=== PATIENT | female | born 1950 | race Caucasian/White ===

== ENCOUNTER 2023-08-16 22:18 | Inpatient (IN) | payer MEDICARE, OTHER, SELFPAY ==
[2023-08-16 18:16] VITALS: BP 98/70
[2023-08-16 19:21] VITALS: BP 103/72
[2023-08-16 19:40] LABS: Lactic Acid 1.9 mmol/L (0.7-2.0)
[2023-08-16 19:41] LABS: ALT (SGPT) 27 U/L (0-35); AST (SGOT) 28 U/L (14-36); Albumin 3.6 g/dl (3.5-5.0); Alkaline Phosphatase 43 U/L (38-126); Blood Urea Nitrogen 59 mg/dl (7-17); Calcium 10.5 mg/dl (8.4-10.2); Carbon Dioxide 37 mmol/L (22-30); Chloride 84 mmol/L (98-107); Creatine Phosphokinase 21 U/L (30-135); Glucose 187 mg/dl (70-99); Lipase 318 U/L (23-300); Potassium 4.1 mmol/L (3.5-5.1); Sodium 122 mmol/L (135-145); Total Bilirubin 0.8 mg/dl (0.2-1.3); Total Protein 5.6 g/dl (6.3-8.2); eGFR > 60.00
[2023-08-16 20:00] VITALS: BP 105/74
[2023-08-16 20:05] LABS: % Basophils 0.2 % (0-2); % Monocytes 3.7 % (1.7-9.3); % Neutrophils 70.1 % (42.2-75.2); Absolute Immature Granulocytes 0.1 10^3/uL (0-0.05); Absolute Lymphocytes 2.9 10^3/uL (1.2-3.4); Absolute Monocytes 0.4 10^3/uL (0.1-0.6); Absolute Neutrophils 8.2 10^3/uL (1.4-6.5); Hematocrit 35.4 % (37.0-47.0); Hemoglobin 13.1 g/dL (12.0-16.0); Mean Corpuscular Volume 86.6 fL (81.0-99.0); Nucleated Red Blood Cells % 0 %; Platelet Count 306 10^3/uL (130-400); Red Blood Cell Count 4.09 10^6/uL (4.20-5.40); Red Cell Dist. Width 13.1 % (11.5-14.5); White Blood Cell Count 11.8 10^3/uL (4.8-10.8)
[2023-08-16 20:12] LABS: TSH Reflex To Free T4 < 0.02 uIU/ml (0.47-4.68)
[2023-08-16 20:16] LABS: Urine Albumin Negative (Neg - Trace); Urine Bilirubin 1+ (Negative); Urine Character Clear (Clear); Urine Color Yellow; Urine Glucose Negative (Negative); Urine Ketone Negative (Negative); Urine Leukocyte Trace (Negative); Urine Nitrite Positive (Negative); Urine Occult Blood 1+ (Negative); Urine Urobilinogen Negative (Neg - 1+)
--- NOTE | 2023-08-16 20:32 | ED.GENMED ---
History of Present Illness
General
Chief Complaint: Abnormal Lab Value
Source: patient and family
Exam Limitations: none
Time Seen by Provider: 08/16/23 18:40
Nursing documentation reviewed up to this point in time: agreed with
Travel History
Have you had any contact with someone who has COVID-19?: No
Do you have any symptoms of coronavirus? Fever > 100 degrees, chills, cough, shortness of breath, sore throat, loss of taste or smell, muscle aches, or headache?: No
History of Present Illness
History of Present Illness:
72-year-old female with past medical history of asthma COPD recent strep pneumonia currently still on antibiotic, A-fib, anemia, urinary tension presenting to the emergency department today with concerns of abnormal labs as an outpatient as well as
worsening generalized weakness fatigue over the past week or so. Of note additionally she was recently in the hospital 1 month ago with pneumonia's currently still on antibiotics managed by infectious disease and pulmonary. Still on doxycycline.
Currently on 4 L nasal cannula at baseline. Outpatient labs that indicate hyponatremia and elevated BUN which prompted her to come to the emergency department. She additionally has had generalized weakness and fatigue that has been progressive.
She has not been drinking adequately by self admission, she has been taking Lasix daily.
Past History
Past History
ED Past Medical History: Arrthythmia (afib), COPD, Hypothyroidism and Other (Monoclonal B-cell lymphocytosis)
ED Past Surgical History: Cardiac (Cardiac ablation for A-fib), Gynecological (Hysterectomy), Orthopedic (Microdiscectomy, right hip replacement) and Other (Cataract)
Social History
Tobacco: Former smoker
Alcohol: None
Drug: None
Personal:
Living: alone
Employment: Retired
Review of Systems
Review of Systems
Allergies reviewed?: Yes
All Other Systems: ROS reviewed and negative except as documented in HPI and ROS
Phy Exam
Physical Exam
Physical Exam:
GENERAL: Alert , in no apparent distress
EYE: pupils equal and reactive
NECK: Supple, no significant adenopathy.
ENT: o/p clr, mmm.
CARDIAC: Regular rate and rhythm .
LUNGS: Clear breath sounds bilaterally, no acute respiratory distress, no wheezes/rales/rhonchi
ABDOMEN: Soft, without focal tenderness, no r/g, no cvat
NEUROLOGICAL: Alert and oriented, no focal neuro deficits
SKIN: Warm and dry, skin intact.
MUSCULOSKELETAL: No edema, well perfused.
PSYCH: Normal and appropriate interaction.
Course
Orders/Labs/Results
Orders:
Orders
08/16/23 18:41
EKG [Electrocardiogram (*1)] Urgent
Reason for Study: Fatigue / Weakness
08/16/23 18:42
EKG- Treatment ONCE
08/16/23 19:17
Complete Blood Count/With Diff Urgent
Comprehensive Metabolic Panel Urgent
Creatine Phosphokinase Urgent
Free T4 Urgent
Lactic Acid Urgent
Lipase Urgent
Magnesium Urgent
Comment: ADD ON
TSH Reflex To Free T4 Urgent
08/16/23 20:05
Urinalysis Reflex To Culture Urgent
Date Specimen was Collected: 08/16/23
Time Specimen was Collected: 19:06
Urine Microscopic Reflex Cult Urgent
Urine Culture Urgent
ALYSSIA Source: U
Specimen Description:
Date Specimen was Collected: 08/16/23
Time Specimen was Collected: 19:06
08/16/23 20:16
0.9% Sodium Chloride 500 ml [Nss] 500 ml IV BOLUS
08/16/23 20:35
Add On- LAB Urgent
Tests Added?: magnesium
08/16/23 20:38
Mag&Al/Sim/Diphenhyd/Lidocaine [First-Mouthwash Blm Suspension] 5 ml PO ONCE ONE
08/16/23 20:45
Ondansetron Injectable [Zofran] 4 mg IV NOW STA
Abnormal Lab Results
08/16/23 08/16/23
19:17 20:05
WBC 11.8 H 10^3/uL
(4.8-10.8)
RBC 4.09 L 10^6/uL
(4.20-5.40)
Hct 35.4 L %
(37.0-47.0)
MCH 32.0 H pg
(27.0-31.0)
Abs Immat Gran (auto) 0.1 H 10^3/uL
(0-0.05)
Absolute Neuts (auto) 8.2 H 10^3/uL
(1.4-6.5)
Immature Gran % 1.0 H %
(0-0.5)
Sodium 122 L mmol/L
(135-145)
Chloride 84 L mmol/L
(98-107)
Carbon Dioxide 37 H mmol/L
(22-30)
BUN 59 H mg/dl
(7-17)
Glucose 187 H mg/dl
(70-99)
Calcium 10.5 H mg/dl
(8.4-10.2)
Magnesium 2.5 H mg/dl
(1.6-2.3)
Creatine Kinase 21 L U/L
(30-135)
Total Protein 5.6 L g/dl
(6.3-8.2)
Lipase 318 H U/L
(23-300)
TSH (Reflex) < 0.02 L uIU/ml
(0.47-4.68)
Ur Occult Blood Reflex 1+ A
(Negative)
Urine Nitrite (Reflex) Positive A
(Negative)
Urine Bilirubin 1+ A
(Negative)
Leukocyte Esterase Rfl Trace A
(Negative)
Urine RBC 40-50 A /HPF
(0-2)
Urine Bacteria (Reflex) Few A
(Negative)
08/16/23 19:17
08/16/23 19:17
Vital Signs
Initial and Last Documented VS:
Initial Vital Signs
Temp Pulse Resp BP Pulse Ox
98.0 F 87 16 98/70 96
08/16/23 18:16 08/16/23 18:16 08/16/23 18:16 08/16/23 18:16 08/16/23 18:16
Last Documented Vital Signs
Temp Pulse Resp BP Pulse Ox
98.0 F 81 18 117/80 95
08/16/23 18:16 08/16/23 21:00 08/16/23 21:00 08/16/23 21:00 08/16/23 21:00
MDM/Problems Addressed
MDM/Problems Addressed:
72-year-old female presenting to the emergency department today with concerns of generalized weakness fatigue worsening over the past few weeks additionally with abnormal labs including hyponatremia and elevated BUN a few days ago. Upon arrival
here blood pressure slightly low otherwise vital signs are normal. Labs were obtained showing sodium level 122 chloride level of 84. BUN elevated to 59 creatinine 0.8 indicating potential dehydration was given some fluids and admitted for further
treatment.
*Critical Care Note
Total Time (30-74mins, 75-104mins- exclusive of procedures): Not Applicable
ED Attending Note
-
Portions of this chart may have been created with voice recognition software.� Occasional wrong word or��sound alike� substitutions may have occurred due to the inherent limitations of voice recognition software.
Discharge Plan
Departure
Patient Disposition: Admit
Date of Disposition: 08/16/23
Time of Disposition: 21:19
Admit to: Med/Surg
Admit to doctor: Luis Alfredo
Presentation/result/management discussed w/ accepting MD/DO: Hospitalist
Patient with high blood pressure during this ER visit?: No
Condition: Good
Covid-19: Not Applicable
Discharge Problem:
Acute hyponatremia, Hypochloremia, Elevated BUN
Prescriptions:
No Action
celecoxib 200 mg capsule
200 mg PO BID
gabapentin 600 mg tablet
600 mg PO TID@0700,1500,2200
gabapentin 300 mg capsule
300 mg PO HS
Rx Instructions:
07/03/2023, taken w/ 600mg = 900mg @2200.
montelukast 10 mg tablet
10 mg PO HS
fluticasone propionate 50 mcg/actuation spray,suspension
2 spray INTRANASAL BID
levothyroxine 112 mcg tablet
112 mcg PO MOWEFR@07
furosemide 40 mg tablet
20 mg PO DAILY PRN (Reason: mild edema)
Patient Comments:
07/03/2023, patient states that the dose they take depends on how much salt they eat and how much swelling there is in her legs.
fexofenadine 180 mg Tablet
180 mg PO DAILY
levothyroxine 125 mcg tablet
125 mcg PO SUTUTHSA@07
azelastine 137 mcg (0.1 %) aerosol,spray
1 spray INTRANASAL DAILY
krill oil
1 cap PO DAILY
doxycycline hyclate 100 mg capsule
100 mg PO BID Qty: 60 0RF
Hold Instructions: can go back to this regimen when done with levaquin
Patient Comments:
07/03/2023, patient states that she takes this medication BID for 6 weeks and then swtiches to their Cefuroxime BID for 6 weeks and then they go back to their Doxycylcine for 6 weeks and repeat. Patient states that she starts taking this
medication BID on Friday (07/07/2023). Patient is currently taking her Cefuroxime for 6 weeks.
furosemide 40 mg Tablet
40 mg PO DAILY PRN (Reason: severe edema)
Patient Comments:
07/03/2023, patient states that the dose they take depends on how much salt they eat and how much swelling there is in her legs.
cyanocobalamin (vitamin B-12) 1,000 mcg Tablet
500 mcg PO DAILY
ascorbic acid (vitamin C) [Vitamin C] 500 mg Tablet
500 mg PO QPM
Serevent Diskus 50 mcg/dose Blister With Device
1 inh INHALATION R BID
cefuroxime axetil 500 mg Tablet
500 mg PO BID
Hold Instructions: can go back to this regimen when done with levaquin
Patient Comments:
07/03/2023, patient states that she takes this medication BID for 6 weeks and then swtiches to their Doxycycline BID for 6 weeks and then they go back to their Cefuroxime for 6 weeks and repeat. Patient is currently taking this medication for 6
weeks. Patient states that she starts her Doxycylcine on Friday (07/07/2023).
duloxetine 30 mg Capsule,Delayed Release(Dr/Ec)
30 mg PO BID
levalbuterol tartrate 45 mcg/actuation Hfa Aerosol Inhaler
1 puff INHALATION R Q8HPRN PRN (Reason: sob)
cholecalciferol (vitamin D3) 25 mcg (1,000 unit) Tablet
25 mcg PO .4 TIMES A WEEK@1700
Patient Comments:
07/03/2023, patient states that they take this medication 4 times a week whenever they think to add it to their pill box.
roflumilast [Daliresp] 500 mcg Tablet
500 mcg PO HS
fluticasone furoate 200 mcg/actuation Blister With Device
2 inh INHALATION R BID
turmeric 400 mg Capsule
400 mg PO BID
Citracal plus D
1 tab PO BID
diltiazem HCl 180 mg Capsule,Extended Release 24hr
180 mg PO DAILY Qty: 0 0RF
prednisone 20 mg Tablet
60 mg PO DAILY Qty: 1 0RF
Rx Instructions:
Decrease by 10 mg every 3 days until done
levofloxacin 750 mg Tablet
750 mg PO DAILY Qty: 4 0RF
benzonatate 100 mg Capsule
200 mg PO TID Qty: 0 0RF
levalbuterol HCl 1.25 mg/3 mL Solution For Nebulization
1.25 mg inhalation R Q6HPRN PRN (Reason: sob/wheeze) Qty: 0 0RF
alprazolam 0.5 mg Tablet
0.5 mg PO HS Qty: 3 0RF
Referrals:
Juan Kamara MD [Family Provider] -
Interventions
Interventions:
*ED COVID-19 Vaccine History Last Done: 08/16/23 18:16
[2023-08-16 20:41] LABS: Free T4 1.56 ng/dl (0.78-2.19)
[2023-08-16 20:44] LABS: Urine Bacteria Few (Negative); Urine Red Blood Cell 40-50 /HPF (0-2); Urine Squamous Cell 0-2 /LPF (Few)
[2023-08-16] MEDS: NSS 500 IV (20:44)
[2023-08-16] MEDS: ZOFRAN 4 MG IV (20:48)
[2023-08-16 21:00] VITALS: BP 117/80
[2023-08-16 21:08] LABS: Magnesium 2.5 mg/dl (1.6-2.3)
--- NOTE | 2023-08-16 21:45 | HPS.HSE ---
Addendum entered and electronically signed by Nic Lobato DO 08/16/23 22:30:
Patient seen and examined independently. Agree with findings and plan as set forth by Shalini Simons PA-C.
Patient is a 72y F with PMH significant for PAF, COPD, hypothyroidism and recent issues with edema who presents to ED for evaluation of abnormal outpatient lab testing. Patient was admitted here Jun for pneumonia. She was discharged
to rehab and then admitted to [facility] with COVID. Patient states that she then began to develop increased edema / fluid retention in the legs. thighs and abdomen. She was started on a diuretic regimen consisting of BID Lasix and daily metolazone.
Labs done as an outpatient showed new hyponatremia and patient presented to the ED for evaluation.
Patient complains of feeling weak, fatigued and 'washed out'. She complains of nausea and poor appetite.
Ass:
Symptomatic Hyponatremia - Likely Hypovolemic
Hypovolemia secondary to diuretics
COPD
Chronic Hypoxemic Respiratory Failure
Paroxysmal Atrial Fibrillation
Anxiety / Depression
Hypothyroidism
Peripheral Neuropathy
Monoclonal B Cell Lymphocytosis
Plan:
Admit for further evaluation and treatment.
Hold all diuretics - note that regimen prior to initial hospitalization was Lasix only 'PRN' for swelling.
Gentle IVF replacement overnight.
Follow labs / lytes and adjust fluids as needed.
Follow I/Os, daily weights, etc.
PT / OT evaluations.
Continue usual outpatient medications for COPD, A-Fib, etc.
Update TFTs.
Original Note:
Family Physician
-
Family Physician: Juan Kamara
Chief Complaint
-
Abnormal Lab Values
History of Present Illness
Pt is a 72yo F w/ a PMH of Paroxysmal AFib, COPD, Asthma, Hypothyroidism, and Monoclonal B-cell lymphocytosis is presenting to the ED following abnormal lab values during routine lab work. Pt states she was hospitalized at for a week with strep
pneumonia and discharged on 07/14/23. She then went to [facility] for one week and was admitted to [facility] with Covid for one week. After discharge she returned to [facility] rehab for two weeks and has since been home for one week.
She admits to still feeling short of breath and experiences intermittent coughing without sputum production. She states her appetite is normal and she is able to keep down food and fluids. She states she was experiencing significant lower extremity
edema for which she was started on Lasix 40mg twice daily with the addition of Metolazone 2.5mg daily by a provider outside of . Her recent blood work showed significant hyponatremia and she was referred to ED for evaluation. Daughter at the
bedside notes slight confusion, and patient reports feeling very foggy.
Medical History
Past Medical History
Past Medical History: Reports Other
Additional Past Medical History:
Paroxysmal Atrial Fibrillation s/p Ablation
COPD
Chronic Hypoxic Respiratory Failure
Monoclonal B-Cell Lymphocytosis
Hypothyroidism
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
Past Surgical History: Reports Other
Additional Past Surgical History:
Cardiac Ablation
Hysterectomy
Microdiscectomy
Right Hip Replacement
Cataract
Social History
Tobacco: Former Smoker
Alcohol: Occasional
Drug: None
Family History
Family History: Not pertinent
Allergies / Home Medications
Allergies reflects when Allergies were last updated in [employer].
Home Medications with original date entered in [employer]
Allergy/Medication List:
Allergies
Allergy/AdvReac Type Severity Reaction Status Date / Time
azithromycin Allergy Rash Verified 11/20/22 14:52
codeine Allergy Rash Verified 11/20/22 14:52
morphine Allergy Rash Verified 11/20/22 14:52
tetanus toxoid, adsorbed Allergy Rash Verified 11/20/22 14:52
tuberculin, purified protein Allergy Rash Verified 11/20/22 18:54
deriva
Home Medications
azelastine 137 mcg (0.1 %) nasal spray aerosol 1 spray intranasal DAILY Allergies 11/20/22
celecoxib 200 mg capsule 200 mg PO BID Pain 11/20/22
fexofenadine 180 mg tablet 180 mg PO DAILY Allergies 11/20/22
fluticasone propionate 50 mcg/actuation nasal spray,suspension 2 spray intranasal BID Allergies 11/20/22
gabapentin 300 mg capsule 300 mg PO HS Pain 11/20/22
gabapentin 600 mg tablet 600 mg PO TID@0700,1500,2200 Pain 11/20/22
krill oil 1 cap PO DAILY Supplement 11/20/22
levothyroxine 112 mcg tablet 112 mcg PO MOWEFR@07 Thyroid 11/20/22
levothyroxine 125 mcg tablet 125 mcg PO SUTUTHSA@07 Thyroid 11/20/22
montelukast 10 mg tablet 10 mg PO HS Lung/breathing issues 11/20/22
doxycycline hyclate 100 mg capsule 100 mg PO BID #60 caps 11/25/22
Citracal plus D 1 tab PO BID Supplement 07/03/23
ascorbic acid (vitamin C) 500 mg tablet (Vitamin C) 500 mg PO QPM Supplement 07/03/23
cefuroxime axetil 500 mg tablet 500 mg PO BID Infection 07/03/23
cholecalciferol (vitamin D3) 25 mcg (1,000 unit) tablet 25 mcg PO .4 TIMES A WEEK@1700 Supplement 07/03/23
cyanocobalamin (vitamin B-12) 1,000 mcg tablet 500 mcg PO DAILY Supplement 07/03/23
duloxetine 30 mg capsule,delayed release 30 mg PO BID Depression 07/03/23
fluticasone furoate 200 mcg/actuation blister powder for inhalation 2 inh inhalation R BID Lung/Breathing Issues 07/03/23
levalbuterol tartrate 45 mcg/actuation aerosol inhaler 1 puff inhalation R Q8HPRN PRN sob 07/03/23
roflumilast 500 mcg tablet (Daliresp) 500 mcg PO HS Lung/Breathing Issues 07/03/23
salmeterol 50 mcg/dose blister powder for inhalation (Serevent Diskus) 1 inh inhalation R BID Lung/Breathing Issues 07/03/23
turmeric 400 mg capsule 400 mg PO BID Supplement 07/03/23
alprazolam 0.5 mg tablet 0.5 mg PO HS #3 tabs 07/12/23
benzonatate 100 mg capsule 200 mg PO TID #0 caps 07/12/23
levalbuterol HCl 1.25 mg/3 mL solution for nebulization 1.25 mg (3 mL) inhalation R Q6HPRN PRN sob/wheeze #0 mL 07/12/23
diltiazem HCl 30 mg tablet 30 mg PO TID 08/16/23
furosemide 40 mg tablet (Lasix) 40 mg PO BID 08/16/23
metolazone 2.5 mg tablet 2.5 mg PO DAILY 08/16/23
midodrine 2.5 mg tablet 2.5 mg PO DAILY@1400 08/16/23
midodrine 5 mg tablet 5 mg PO DAILY 08/16/23
phenazopyridine 100 mg tablet (Pyridium) 100 mg PO TID 08/16/23
prednisone 10 mg tablet 30 mg PO DAILY 08/16/23
Review of Systems
-
A 12 point ROS was completed and negative except as noted: Yes
Constitutional: Denies Fever or Chills
Respiratory: Reports Cough and Trouble Breathing
Cardiac: Denies Chest Pain or Palpitations
Abdomen/GI: Reports Nausea; Denies Abdominal Pain, Vomiting or Diarrhea
: Reports Alicia (Place yesterday due to concerns for urinary retention)
Physical Exam
Vital Signs
Vital Signs
Temp Pulse Resp BP Pulse Ox
98.0 F 81 18 117/80 95
08/16/23 18:16 08/16/23 21:00 08/16/23 21:00 08/16/23 21:00 08/16/23 21:00
Physical Exam
General: Comfortable and Conversant
HEENT: Anicteric, Oxygen (Nasal Cannula) and Other (Dry mucous membranes)
Respiratory: Clear and Non Labored Respirations
Cardiac: S1/S2 and Regular Rhythm
GI: Soft and Non Tender
Genito-urinary: Alicia
Musculoskeletal: No Clubbing, No Cyanosis and No Edema
Skin: Warm and Dry
Neuro: Awake, Alert, Oriented and Nonfocal/grossly intact
Psych: Calm
Laboratory Results
-
08/16/23 19:17
08/16/23 19:17
Laboratory Results
Lactic Acid 1.9 mmol/L (0.7-2.0) 08/16/23 19:17
Total Bilirubin 0.8 mg/dl (0.2-1.3) 08/16/23 19:17
AST 28 U/L (14-36) 08/16/23 19:17
ALT 27 U/L (0-35) 08/16/23 19:17
Alkaline Phosphatase 43 U/L (38-126) 08/16/23 19:17
Lipase 318 U/L (23-300) H 08/16/23 19:17
Data Reviewed
-
Lab Data: Labs Reviewed by me
Old Records: Reviewed
Impression/Plan
-
Symptomatic Hypovolemic Hyponatremia related to over-diuresis
-Hold metolazone and furosemide
-Hold Celebrex
-Continue slow IVFs overnight
-Repeat sodium later tonight and in AM
Severe COPD
Chronic Hypoxic Respiratory Failure
-Recent admissions for Strep pneumonia and COVID
-Patient alternates 6 weeks coarse of doxycycline and Ceftin - Currently on doxycycline
-Continue prednisone as prior to admission, currently tapering down 10mg every 5 days to baseline 5mg
-Continue Daliresp
-Continue fluticasone and salmeterol
-Continue levalbuterol prn
Paroxysmal Atrial Fibrillation s/p Ablation
-Patient is not on anticoagulation as outpatient
-Continue diltiazem
Anxiety/Depression
Continue Duloxetine and alprazolam
Hypothyroidism
-Continue levothyroxine
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
-Continue gabapentin and duloxetine
Environment/Seasonal Allergies
-Continue fexofenadine and montelukast
Hx Monoclonal B-Cell Lymphocytosis
DVT proph: Lovenox
Code Status: DNR/DNI
[2023-08-16 22:00] VITALS: BP 112/76
[2023-08-16 23:05] VITALS: BP 118/70
[2023-08-17 00:56] LABS: Blood Urea Nitrogen 53 mg/dl (7-17); Calcium 10.5 mg/dl (8.4-10.2); Chloride 84 mmol/L (98-107); Estimated Creatinine Clearance 43 ml/min; Glucose 154 mg/dl (70-99); Potassium 3.9 mmol/L (3.5-5.1); Sodium 129 mmol/L (135-145); eGFR > 60.00
[2023-08-17 01:06] LABS: Carbon Dioxide 39 mmol/L (22-30)
[2023-08-17] MEDS: Pyridium 100 MG PO ×4 (01:28→22:29)
[2023-08-17] MEDS: SINGULAIR 10 MG PO ×2 (01:28→22:29)
[2023-08-17] MEDS: DALIRESP 500 MCG PO ×2 (01:28→22:27)
[2023-08-17] MEDS: CARDIZEM 30 MG PO ×4 (01:29→22:27)
[2023-08-17] MEDS: NEURONTIN 300 MG PO ×2 (01:29→22:29)
[2023-08-17] MEDS: FIRST-MOUTHWASH BLM SUSPENSION 5 ML PO (01:30)
[2023-08-17] MEDS: NSS 1000 IV (01:30)
[2023-08-17] MEDS: TYLENOL 650 MG PO ×2 (01:54→22:33)
[2023-08-17] MEDS: XANAX 0.5 MG PO ×2 (01:55→22:34)
[2023-08-17] MEDS: TESSALON PERLES 100 MG PO ×3 (01:55→22:33)
[2023-08-17 03:00] VITALS: BP 131/79
--- NOTE | 2023-08-17 03:40 | W.PN.UPDATE ---
Update Note
Progress Note Update
Patient is currently on gabapentin dose of 2100 mg total daily (600 mg TID and 300 mg HS) Pharmacy recommended to changed/ decreased the daily dose to 1800mg as crcl is 54. Dose was changed as recommended.
--- NOTE | 2023-08-17 04:30 | PTCARENOTE ---
Pt admitted to the unit from ED. Pt ambulated using their own rollator with nursing staff. [id number]. VS: Temp 98.1, Pulse 63, BP 118/70, Resp Rate 20, and 98% on 4 L NC. Pt oriented to room with call fenton in reach. Plan of care ongoing.
[2023-08-17 06:00] VITALS: BMI 19.8
[2023-08-17] MEDS: NEURONTIN 500 MG PO ×3 (06:30→22:28)
[2023-08-17] MEDS: SYNTHROID 125 MCG PO (06:30)
[2023-08-17 06:46] LABS: Hematocrit 33.9 % (37.0-47.0); Mean Corp Hgb Conc. 35.4 g/dL (33.0-37.0); Mean Corpuscular Hgb 32.3 pg (27.0-31.0); Mean Corpuscular Volume 91.1 fL (81.0-99.0); Platelet Count 295 10^3/uL (130-400); Red Blood Cell Count 3.72 10^6/uL (4.20-5.40); White Blood Cell Count 10.2 10^3/uL (4.8-10.8)
[2023-08-17 07:00] VITALS: BP 113/61
[2023-08-17 07:01] LABS: Blood Urea Nitrogen 41 mg/dl (7-17); Calcium 9.7 mg/dl (8.4-10.2); Chloride 87 mmol/L (98-107); Estimated Creatinine Clearance 47 ml/min; Glucose 124 mg/dl (70-99); Magnesium 2.3 mg/dl (1.6-2.3); Potassium 3.2 mmol/L (3.5-5.1); Sodium 129 mmol/L (135-145); eGFR > 60.00
[2023-08-17 07:15] LABS: Carbon Dioxide 41 mmol/L (22-30)
[2023-08-17] MEDS: ProAmatine 5 MG PO (07:21)
[2023-08-17] MEDS: DELTASONE 30 MG PO (07:44)
[2023-08-17] MEDS: CYMBALTA DELAYED RELEASE 30 MG PO ×3 (07:44→22:26)
[2023-08-17] MEDS: VIBRAMYCIN 100 MG PO ×2 (07:44→19:50)
[2023-08-17] MEDS: NON-FORMULARY ITEM 1 SPRAY NASAL (07:45)
[2023-08-17] MEDS: NON-FORMULARY ITEM 2 SPRAY NASAL ×2 (07:45→19:51)
[2023-08-17 09:28] VITALS: BMI 19.8
[2023-08-17 10:22] VITALS: BP 111/69; PULSE 75; O2SAT 96
[2023-08-17 11:00] VITALS: BP 117/77
[2023-08-17] MEDS: NON-FORMULARY ITEM 1 UNIT INH ×2 (11:26→18:32)
[2023-08-17] MEDS: XOPENEX HFA 45 MCG INHALER 1 PUFF INH ×2 (11:28→18:34)
[2023-08-17] MEDS: NON-FORMULARY ITEM 2 UNIT INH (11:28)
--- NOTE | 2023-08-17 12:37 | CM ---
CM following re: d/c planning.
Pt states she resides alone in [facility], [address] and flight of stairs to bedroom and laundry.
Pt states she is independent with mobility and ADLs at baseline.
She has a rollator available if needed and has been using it very recently, she states.
Per therapy, recs for [facility] vs[facility] SN[facility]. Discussed this with pt.
She states she has a physician at [facility], Dr. Dixon and was instructed she can return to [facility] if needed.
CM will send a referral to [facility] for now and will continue to follow case for d/c planning.
PCP is Dr. Kamara and pharmacy [facility] in [place].
[2023-08-17] MEDS: NON-FORMULARY ITEM 1 UNIT PO (14:46)
--- NOTE | 2023-08-17 14:47 | W.PN.HOSP.TC ---
Today's Communication/Plan
-
continue gentle IVF
will need KCL supplement
Assessment / Plan
Assessment / Plan
Symptomatic Hypovolemic Hyponatremia related to over-diuresis. Feels weak, unable to walk, feels confused
-Hold metolazone and furosemide
-Hold Celebrex
-Continue slow IVFs
-Na 122-->129-->129
Hypokalemia
3.9-->3.2
Prerenal azotemia
53/1.0-->41/0.9
Pt states she sees Chin regularly for her COPD and is requesting pulmonary consult. She is okay waiting until tomorrow
She states she goes to [facility] and is requesting cardio consult as well
She states she has a chronic dean, requires Flomax and is requesting consult with Urologist. States she has appt for cysto on at [facility], would like to see a urologist here instead
Severe COPD
Chronic Hypoxic Respiratory Failure
-Recent admissions for Strep pneumonia and COVID
-Patient alternates 6 weeks coarse of doxycycline and Ceftin - Currently on doxycycline
-Continue prednisone as prior to admission, currently tapering down 10mg every 5 days to baseline 5mg
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
-Continue Daliresp
-Continue fluticasone and salmeterol
-Continue levalbuterol prn
Paroxysmal Atrial Fibrillation s/p Ablation
-Patient is not on anticoagulation as outpatient
-Continue diltiazem
Anxiety/Depression
Continue Duloxetine and alprazolam
Hypothyroidism
-Continue levothyroxine
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
-Continue gabapentin and duloxetine
Environment/Seasonal Allergies
-Continue fexofenadine and montelukast
Hx Monoclonal B-Cell Lymphocytosis
DVT proph: Lovenox
Code Status: DNR/DNI
Anticipated Discharge: > 48 hours
Subjective/Interval History
-
Date of Service: August 17, 2023
Pt continues to feel weak, wall not feel her mentation is back to baseline
Objective Data
-
Labs:
Laboratory Results
08/17/23
06:01
WBC 10.2
Hgb 12.0
Hct 33.9 L
Plt Count 295
Sodium 129 L
Potassium 3.2 L
Chloride 87 L
Carbon Dioxide 41 H
BUN 41 H
Creatinine 0.9
Glucose 124 H
Calcium 9.7
Vital Signs:
Vital Signs
Temp Pulse Resp BP Pulse Ox
97.4 F 77 16 117/77 99
08/17/23 11:00 08/17/23 11:54 08/17/23 11:54 08/17/23 11:00 08/17/23 11:54
I&O
08/16/23 08/17/23 08/18/23
06:59 06:59 06:59
Intake Total 540 / 540
Output Total 800 / 800
Balance -800 / -800 540 / 540
Review of Systems
-
History Source: Patient and Coordinated Provider
Constitutional: Denies Fever
EENT: Reports No Symptoms Reported
Respiratory: Reports Trouble Breathing (states she has a chronic wheeze)
Cardiac: Reports No Symptoms; Denies Chest Pain
Musculoskeletal: Reports Muscle Weakness
Physical Exam
-
General: Well Developed, Well Nourished, No Apparent Distress and Conversant
HEENT: Normocephalic, Atraumatic and Moist Mucous Membranes
Respiratory: Wheezes (holoexpiratory whheze with good air movment)
Cardiac: Regular Rhythm and S1/S2
GI: Soft, Nontender and Nondistended
Musculoskeletal: No Clubbing, No Cyanosis and No Edema
[2023-08-17] MEDS: ProAmatine 2.5 MG PO (14:51)
[2023-08-17 15:00] VITALS: BP 117/68
[2023-08-17] MEDS: KCL 20 MEQ PO (15:17)
[2023-08-17] MEDS: NSS with KCL 20 MEQ 1000 IV (15:18)
[2023-08-17] MEDS: LOVENOX 40 MG SC (17:27)
[2023-08-17] MEDS: NON-FORMULARY ITEM 2 INH INH (18:33)
[2023-08-17 19:54] VITALS: BP 117/78
[2023-08-18] VITALS (7 sets, daily range): BP systolic 97–126; BP diastolic 55–76; PULSE 75; O2SAT 97; BMI 20.3
[2023-08-18] MEDS: NSS with KCL 20 MEQ 1000 IV ×2 (03:46→15:56)
[2023-08-18] MEDS: MIRALAX 17 GRAMS PO (06:02)
[2023-08-18] MEDS: ProAmatine 5 MG PO (06:03)
[2023-08-18] MEDS: FLOMAX 0.800000000000000044 MG PO (06:03)
[2023-08-18] MEDS: SYNTHROID 112 MCG PO (06:04)
[2023-08-18] MEDS: NEURONTIN 500 MG PO ×3 (06:04→23:17)
[2023-08-18] MEDS: CARDIZEM 30 MG PO ×3 (06:05→23:18)
[2023-08-18] MEDS: TYLENOL 650 MG PO ×2 (06:10→23:19)
[2023-08-18] MEDS: TESSALON PERLES 100 MG PO ×2 (06:11→23:17)
[2023-08-18 07:47] LABS: % Basophils 0.1 % (0-2); % Eosinophils 0.2 % (0-6); % Immature Granulocytes 1.1 % (0-0.5); % Lymphocytes 41.1 % (20.5-51.1); % Monocytes 7.2 % (1.7-9.3); % Neutrophils 50.3 % (42.2-75.2); Absolute Immature Granulocytes 0.1 10^3/uL (0-0.05); Absolute Lymphocytes 3.8 10^3/uL (1.2-3.4); Absolute Monocytes 0.7 10^3/uL (0.1-0.6); Absolute Neutrophils 4.7 10^3/uL (1.4-6.5); Hematocrit 33.1 % (37.0-47.0); Hemoglobin 11.3 g/dL (12.0-16.0); Mean Corp Hgb Conc. 34.1 g/dL (33.0-37.0); Mean Corpuscular Hgb 31.9 pg (27.0-31.0); Mean Corpuscular Volume 93.5 fL (81.0-99.0); Mean Platelet Volume 8.5 fL (7.4-10.4); Nucleated Red Blood Cells % 0 %; Platelet Count 273 10^3/uL (130-400); Red Blood Cell Count 3.54 10^6/uL (4.20-5.40); Red Cell Dist. Width 13.2 % (11.5-14.5); White Blood Cell Count 9.3 10^3/uL (4.8-10.8)
[2023-08-18 08:04] LABS: Blood Urea Nitrogen 14 mg/dl (7-17); Calcium 8.7 mg/dl (8.4-10.2); Carbon Dioxide 36 mmol/L (22-30); Chloride 94 mmol/L (98-107); Estimated Creatinine Clearance 73 ml/min; Glucose 89 mg/dl (70-99); Magnesium 2.2 mg/dl (1.6-2.3); Potassium 3.1 mmol/L (3.5-5.1); Sodium 132 mmol/L (135-145); eGFR > 60.00
[2023-08-18] MEDS: NON-FORMULARY ITEM 2 INH INH ×2 (08:05→20:17)
[2023-08-18] MEDS: NON-FORMULARY ITEM 1 UNIT INH ×2 (08:05→20:17)
--- NOTE | 2023-08-18 08:08 | W.PN.HOSP.TC ---
Today's Communication/Plan
-
Replace potassium
See below
Assessment / Plan
Assessment / Plan
Physical Exam
General: Well Developed, Well Nourished, No Apparent Distress and Conversant
HEENT: Normocephalic, Atraumatic and Moist Mucous Membranes
Respiratory: Wheezes (holoexpiratory whheze with good air movment)
Cardiac: Regular Rhythm and S1/S2
GI: Soft, Nontender and Nondistended
Musculoskeletal: No Clubbing, No Cyanosis and No Edema
Assessment/Plan
Symptomatic Hypovolemic Hyponatremia related to over-diuresis. Feels weak, unable to walk, feels confused
- Hold metolazone
- Restart lasix at 40mg BID while inpatient: but if sodium begins dropping or patient is becoming dry, then hold the Lasix
- Will double check with nephrology about continuing Lasix on discharge
- Hold Celebrex
- Continue slow IVFs
- Na 122-->129-->129
- Okay to continue Duloxetine
Hypokalemia
3.9-->3.2
-Maintain potassium greater than 4
Prerenal azotemia
-Monitor BMP
Pt states she sees Chin regularly for her COPD and is requesting pulmonary consult. She is okay waiting until tomorrow
She states she goes to [facility] and is requesting cardio consult as well
She states she has a chronic dean, requires Flomax and is requesting consult with Urologist for urethral bleeding from a recent Latex urinary catheter (she says she is allergic to Latex) as well as for bladder spasms. States she has appt for cysto
on at [facility], would like to see a urologist here instead
Severe COPD
Chronic Hypoxic Respiratory Failure
-Recent admissions for Strep pneumonia and COVID
-Patient alternates 6 weeks coarse of doxycycline and Ceftin - Currently on doxycycline
-Continue prednisone as prior to admission, currently tapering down 10mg every 5 days to baseline 5mg
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
-Continue Daliresp
-Continue fluticasone and salmeterol
-Continue levalbuterol prn
Paroxysmal Atrial Fibrillation s/p Ablation
-Patient is not on anticoagulation as outpatient
-Continue diltiazem
-Patient requested cardiology consultation while inpatient
Anxiety/Depression
Continue Duloxetine and alprazolam
Hypothyroidism
-Continue levothyroxine
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
-Continue gabapentin and duloxetine
-Patient is currently on the maximum dose of Gabapentin (the dose she is on now is only 300mg less per day total) for her creatinine clearance - once patient's CrCl gets to 80 ml/min she can get her home dose
-Appreciate clinical pharmacist input into Gabapentin dosing
Environment/Seasonal Allergies
-Continue fexofenadine and montelukast
History of Monoclonal B-Cell Lymphocytosis
DVT proph: Lovenox
Code Status: DNR/DNI
Anticipated Discharge: 24 - 48 hours
Subjective/Interval History
-
Date of Service: August 18, 2023
Patient was seen and examined. She reported her chronic neuropathic pain in her legs is worse, she requested her home dose of Gabapentin. She also reported bladder spasms.
Objective Data
-
Labs:
Laboratory Results
08/18/23
07:27
WBC 9.3
Hgb 11.3 L
Hct 33.1 L
Plt Count 273
Sodium 132 L
Potassium 3.1 L
Chloride 94 L
Carbon Dioxide 36 H
BUN 14
Creatinine 0.6
Glucose 89
Calcium 8.7
Vital Signs:
Vital Signs
Temp Pulse Resp BP Pulse Ox
97.7 F 63 16 124/76 96
08/18/23 07:26 08/18/23 07:26 08/18/23 07:26 08/18/23 07:26 08/18/23 07:26
I&O
08/17/23 08/18/23 08/19/23
06:59 06:59 06:59
Intake Total 2700 / 2700
Output Total 800 / 800 1700 / 1700
Balance -800 / -800 1000 / 1000
[2023-08-18] MEDS: XOPENEX HFA 45 MCG INHALER 1 PUFF INH ×2 (08:13→20:18)
[2023-08-18] MEDS: Pyridium 100 MG PO ×3 (08:38→23:18)
[2023-08-18] MEDS: VIBRAMYCIN 100 MG PO ×2 (08:38→20:57)
[2023-08-18] MEDS: CYMBALTA DELAYED RELEASE 30 MG PO (08:38)
[2023-08-18] MEDS: KCL 20 MEQ PO ×2 (08:39→22:56)
[2023-08-18] MEDS: DELTASONE 30 MG PO (08:39)
[2023-08-18] MEDS: NON-FORMULARY ITEM 2 SPRAY NASAL ×2 (08:40→20:57)
[2023-08-18] MEDS: NON-FORMULARY ITEM 1 SPRAY NASAL (08:40)
[2023-08-18] MEDS: NON-FORMULARY ITEM 1 UNIT PO (08:41)
--- NOTE | 2023-08-18 10:22 | WOUNDNOTE ---
WON RN note: Patient admitted with Acute hyponatremia and elevated BUN.
See H&P for complete history. Lives by self, current with [facility].
PMH: A Fib-ablation x2, R hip replacement, COPD, ex smoker,pneumonia, RA, L2 /rib fractures and anemia.
Wound Location and type/assessment: Patient admitted with: Healing sacral stage 3 PI, shallow base, undermines all around approximately 0.1cm, very painful upon palpation. Patient assessed along with OT's assist, getting oob to commode/chair.
Patient states she has a wound nurse from [facility] seeing her at home, was using honey gel and dry dressing. Also patient said she had another wound right next to current wound, now appears healed, scar visible. Confirmed with patient she has an
overlay to hospital bed at home for offloading. Heels are intact, blanchable red. Hemosiderin staining on legs with scarring.
Appetite: Good, encouraged increased protein in diet.
Pressure redistribution devices in place: Added air overlay to Accumax bed, air chair cushion in use. Pillow under calves, air cushion on top. Asked nurse Jones to inflate air overlay when patient is back to bed.
Plan: Adaptic and silicone foam applied to sacrum. Called [facility] for honey gel, asked nurse Jones to apply under adaptic when able. Pressure ulcer prevention measures reviewed with patient. She states she can turn self but its very slow going.
Patient aware can take air chair cushion home upon discharge.
Will confirm orders with hospitalist and update nurse. Updated care plan and will follow as needed.
Note to case management of equipment requested for discharge: continue VN.
Recommend follow up at wound care center upon discharge.
--- NOTE | 2023-08-18 10:54 | CM ---
Patient seen bedside.
Patient wishes to return to [facility].
TC to Cecilia at [facility], she will review case.
Continues on oxygen 4 liters.
PT recommending acute rehab.
Plan possible acute rehab
--- NOTE | 2023-08-18 12:31 | W.CON.NEPH ---
Consultation
-
Date/Time Consultation Requested: 08/18 at 8:12AM
Date/Time Consultation Performed: 08/18 at 12:32PM
Requesting Provider: Antonio Riddle
Performing Provider: Dennise Kimbrough
Reason for Consultation: Hyponatremia
Medical History
-
Chief Complaint: hyponatremia
History of Present Illness:
Ms. Perea is a 72y F with PMH significant for PAF, COPD, hypothyroidism and monoclonal B cell lymophocytosis who presented to the ED for hyponaatremia to 122 on 06/15.
Patient was admitted from June to July for PNA (discharged 07/14). She then went to [facility] for 1 week and then was admitted to [facility] for 1 week with COVID PNA. She was then dsicahrged to rehab again for 2 weeks and then
had been home for about 1 week when she felt very fatigued and confused. While in the hospital, she had been started on lasix and metolazone and was instructed to take it daily instead of PRN as prior. She had altered mentation on presentation,
improved now with Na correction. Patient complains of feeling weak, fatigued and 'washed out'.� She complains of nausea and poor appetite. She endorses some dysuria as well.
Past Medical History
Paroxysmal Atrial Fibrillation s/p Ablation
COPD
Chronic Hypoxic Respiratory Failure
Monoclonal B-Cell Lymphocytosis
Hypothyroidism
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
Past Surgical History: Cardiac (Afib ablation), Gynecological (hysterectomy), Orthopedic (hip replacement (R)) and Other (cataract)
Social History
Tobacco: Former Smoker
Alcohol: Occasional
Drug: None
Family History
Family History: Not Pertinent
Allergies / Home Medications
Allergy/AdvReac Type Severity Reaction Status Date / Time
chlorhexidine Allergy Severe Shortness Verified 08/16/23 23:57
of Breath
azithromycin Allergy Rash Verified 11/20/22 14:52
calamine Allergy Rash Verified 08/16/23 23:53
codeine Allergy Rash Verified 11/20/22 14:52
latex Allergy Rash Verified 08/16/23 23:52
morphine Allergy Rash Verified 11/20/22 14:52
tetanus toxoid, adsorbed Allergy Rash Verified 11/20/22 14:52
tuberculin, purified protein Allergy Rash Verified 11/20/22 18:54
deriva
Medication Instructions Recorded Confirmed Type
azelastine 137 mcg (0.1 %) nasal 1 spray intranasal DAILY Allergies 11/20/22 08/17/23 History
spray aerosol
celecoxib 200 mg capsule 200 mg PO BID Pain 11/20/22 08/17/23 History
fexofenadine 180 mg tablet 180 mg PO DAILY Allergies 11/20/22 08/17/23 History
fluticasone propionate 50 2 spray intranasal BID Allergies 11/20/22 08/17/23 History
mcg/actuation nasal
spray,suspension
gabapentin 300 mg capsule 300 mg PO HS Pain 11/20/22 08/17/23 History
gabapentin 600 mg tablet 600 mg PO TID@0700,1500,2200 Pain 11/20/22 08/17/23 History
krill oil 1 cap PO DAILY Supplement 11/20/22 08/17/23 History
levothyroxine 112 mcg tablet 112 mcg PO MOWEFR@07 Thyroid 11/20/22 08/17/23 History
levothyroxine 125 mcg tablet 125 mcg PO SUTUTHSA@07 Thyroid 11/20/22 08/17/23 History
montelukast 10 mg tablet 10 mg PO HS Lung/breathing issues 11/20/22 08/17/23 History
doxycycline hyclate 100 mg capsule 100 mg PO BID #60 caps 11/25/22 08/17/23 Rx
Citracal plus D 1 tab PO BID Supplement 07/03/23 08/17/23 History
ascorbic acid (vitamin C) 500 mg 500 mg PO QPM Supplement 07/03/23 08/17/23 History
tablet (Vitamin C)
cefuroxime axetil 500 mg tablet 500 mg PO BID Infection 07/03/23 08/16/23 History
cholecalciferol (vitamin D3) 25 25 mcg PO .4 TIMES A WEEK@1700 07/03/23 08/17/23 History
mcg (1,000 unit) tablet Supplement
cyanocobalamin (vitamin B-12) 500 mcg PO DAILY Supplement 07/03/23 08/17/23 History
1,000 mcg tablet
duloxetine 30 mg capsule,delayed 30 mg PO DAILY Depression 07/03/23 08/17/23 History
release
fluticasone furoate 200 2 inh inhalation R BID 07/03/23 08/17/23 History
mcg/actuation blister powder for Lung/Breathing Issues
inhalation
levalbuterol tartrate 45 1 puff inhalation R Q8HPRN PRN sob 07/03/23 08/17/23 History
mcg/actuation aerosol inhaler
roflumilast 500 mcg tablet 500 mcg PO HS Lung/Breathing Issues 07/03/23 08/17/23 History
(Daliresp)
salmeterol 50 mcg/dose blister 1 inh inhalation R BID 07/03/23 08/17/23 History
powder for inhalation (Serevent Lung/Breathing Issues
Diskus)
turmeric 400 mg capsule 400 mg PO BID Supplement 07/03/23 08/17/23 History
alprazolam 0.5 mg tablet 0.5 mg PO HS #3 tabs 07/12/23 08/17/23 Rx
levalbuterol HCl 1.25 mg/3 mL 1.25 mg (3 mL) inhalation R Q6HPRN 07/12/23 08/17/23 Rx
solution for nebulization PRN sob/wheeze #0 mL
diltiazem HCl 30 mg tablet 30 mg PO TID 08/16/23 08/17/23 History
furosemide 40 mg tablet (Lasix) 40 mg PO BID 08/16/23 08/17/23 History
metolazone 2.5 mg tablet 2.5 mg PO DAILY 08/16/23 08/16/23 History
midodrine 2.5 mg tablet 2.5 mg PO DAILY@1400 08/16/23 08/17/23 History
midodrine 5 mg tablet 5 mg PO DAILY 08/16/23 08/17/23 History
phenazopyridine 100 mg tablet 100 mg PO TID 08/16/23 08/17/23 History
(Pyridium)
prednisone 10 mg tablet 30 mg PO DAILY 08/16/23 08/17/23 History
Fluticasone Propionate (Flixotide) 2 inh inhalation R BID 08/17/23 08/17/23 History
Lung/Breathing Issues
Tylenol Arthritis 1,300 PO BID 08/17/23 History
benzonatate 100 mg capsule 200 mg PO TID Cough 08/17/23 08/17/23 History
duloxetine 60 mg PO QPM 08/17/23 08/17/23 History
tamsulosin 0.8 mg DAILY 08/17/23 08/17/23 History
Review of Systems
-
All other systems: Negative unless noted
Constitutional: Fatigue
Respiratory: Cough
Cardiac: Palpitations
Physical Exam
Vital Signs
Vital Signs
Temp Pulse Resp BP Pulse Ox
98.3 F 71 18 97/62 97
08/18/23 11:00 08/18/23 11:00 08/18/23 11:00 08/18/23 11:00 08/18/23 11:00
Lab Results
WBC 9.3 10^3/uL (4.8-10.8) 08/18/23 07:27
RBC 3.54 10^6/uL (4.20-5.40) L 08/18/23 07:27
Hgb 11.3 g/dL (12.0-16.0) L 08/18/23 07:27
Hct 33.1 % (37.0-47.0) L 08/18/23 07:27
Plt Count 273 10^3/uL (130-400) 08/18/23 07:27
Sodium 132 mmol/L (135-145) L 08/18/23 07:27
Potassium 3.1 mmol/L (3.5-5.1) L 08/18/23 07:27
Chloride 94 mmol/L (98-107) L 08/18/23 07:27
Carbon Dioxide 36 mmol/L (22-30) H 08/18/23 07:27
BUN 14 mg/dl (7-17) 08/18/23 07:27
Creatinine 0.6 mg/dL (0.6-1.0) 08/18/23 07:27
eGFR > 60.00 08/18/23 07:27
Glucose 89 mg/dl (70-99) 08/18/23 07:27
Calcium 8.7 mg/dl (8.4-10.2) 08/18/23 07:27
Albumin 3.6 g/dl (3.5-5.0) 08/16/23 19:17
Physical Exam
General: AOx3
HEENT: EOMI, Ear/Nose Intact and Facial Symmetry
Respiratory: Clear
Cardiac: S1/S2 and Regular Rate/Rhythm
Breast: Deferred by me
Abdomen: Soft, Nontender and Nondistended
Rectal: Deferred by Provider
Genito-urinary: No Costovertebral Tender and Turbid Urine
Musculoskeletal: Edema
Skin: No Rash, Warm and Dry
Neuro: Nonfocal/Grossly Intact
Hematologic/Lymphatic: No Cervical Lymphadenopathy
Psych: Mood/afflect pleasant
Assessment/Plan
-
Assessment:
Hyponatremia (122 --> 132)
Hypokalemia
COPD
PAfib s/p ablation (not on AC)
Anxiety/depression
Hypothyroidism
Seasonal allergies
Plan:
- please replete K to >4, this will assist in hyponatremia too
- okay to continue duloxetine as it is a longtime med and Na >130 while taking
- would hold metolazone and restart lasix at 40mg BID while inpatient. if Na begins dropping or patient is becoming dry, would pause. for homegoing: likely patient can weigh herself and if she gains >3lbs, should take 40mg daily
- CTM response to diurtic
Data Reviewed
-
Medical Tests (Nuc Med, Echo etc): Image Personally Visualized and interpreted
Labs: Labs Reviewed by me
Old Records: Reviewed
[2023-08-18] MEDS: ProAmatine 2.5 MG PO (13:24)
[2023-08-18] MEDS: VITAMIN B-12 500 MCG PO (15:55)
[2023-08-18] MEDS: LASIX 40 MG IV (15:56)
[2023-08-18] MEDS: KCL 40 MEQ PO (15:56)
[2023-08-18] MEDS: LOVENOX 40 MG SC (17:27)
[2023-08-18] MEDS: VITAMIN C 500 MG PO (17:28)
[2023-08-18 20:44] LABS: Blood Urea Nitrogen 15 mg/dl (7-17); Calcium 8.5 mg/dl (8.4-10.2); Carbon Dioxide 35 mmol/L (22-30); Chloride 97 mmol/L (98-107); Estimated Creatinine Clearance 73 ml/min; Glucose 179 mg/dl (70-99); Potassium 3.6 mmol/L (3.5-5.1); Sodium 134 mmol/L (135-145); eGFR > 60.00
[2023-08-18] MEDS: CYMBALTA DELAYED RELEASE 60 MG PO (20:57)
[2023-08-18] MEDS: SINGULAIR 10 MG PO (22:55)
[2023-08-18] MEDS: DALIRESP 500 MCG PO (22:55)
[2023-08-18] MEDS: XANAX 0.5 MG PO (22:55)
[2023-08-18] MEDS: NEURONTIN 300 MG PO (22:56)
[2023-08-19] VITALS (7 sets, daily range): BP systolic 96–139; BP diastolic 60–83; PULSE 78; O2SAT 96; BMI 20.9
--- NOTE | 2023-08-19 01:51 | PTCARENOTE ---
Addendum entered by Karmen Rodriguez RN 08/19/23 08:06:
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 No blood and no blood clots in Alicia output since admitted to the unit. Plan of care ongoing.
Original Note:
Pt using BSC. Pt states wiping 'front to back' and saw a 'quarter size blood clot dropped on the floor.' When pt reported the blood clot, the blood clot was already wiped up and smeared on a piece of toilet paper. Pt reports this is the 'first clot'
they have seen since admitted to hospital. Pt states 'spotting (of blood) since a Latex Alicia was placed at [facility].' Pt admitted with a Alicia. Alicia is currently in place. Pt states 'I've a history of hemorrhoids.' ANASTASIA Beckman notified. Per
ANASTASIA, continue to monitor. Plan of care ongoing.
[2023-08-19] MEDS: NEURONTIN 500 MG PO ×3 (06:28→23:32)
[2023-08-19] MEDS: SYNTHROID 125 MCG PO (06:28)
[2023-08-19] MEDS: MIRALAX 17 GRAMS PO (06:28)
[2023-08-19] MEDS: TESSALON PERLES 100 MG PO ×2 (06:29→22:40)
[2023-08-19] MEDS: ProAmatine 5 MG PO (06:41)
[2023-08-19] MEDS: TYLENOL 650 MG PO ×2 (06:42→22:54)
[2023-08-19] MEDS: CARDIZEM 30 MG PO ×3 (06:42→22:42)
[2023-08-19] MEDS: FLOMAX 0.800000000000000044 MG PO (07:10)
[2023-08-19 07:24] LABS: Hematocrit 31.6 % (37.0-47.0); Hemoglobin 10.7 g/dL (12.0-16.0); Mean Corp Hgb Conc. 33.9 g/dL (33.0-37.0); Mean Corpuscular Volume 94.6 fL (81.0-99.0); Mean Platelet Volume 8.9 fL (7.4-10.4); Platelet Count 280 10^3/uL (130-400); Red Blood Cell Count 3.34 10^6/uL (4.20-5.40); Red Cell Dist. Width 13.6 % (11.5-14.5); White Blood Cell Count 9.9 10^3/uL (4.8-10.8)
[2023-08-19 07:54] LABS: Blood Urea Nitrogen 12 mg/dl (7-17); Carbon Dioxide 34 mmol/L (22-30); Chloride 107 mmol/L (98-107); Estimated Creatinine Clearance 74 ml/min; Glucose 83 mg/dl (70-99); Magnesium 2.2 mg/dl (1.6-2.3); Sodium 136 mmol/L (135-145); eGFR > 60.00
[2023-08-19] MEDS: XOPENEX HFA 45 MCG INHALER INH (08:57)
[2023-08-19] MEDS: NON-FORMULARY ITEM 2 INH INH ×2 (08:57→19:15)
[2023-08-19] MEDS: NON-FORMULARY ITEM 1 UNIT INH ×2 (08:57→19:15)
[2023-08-19] MEDS: NON-FORMULARY ITEM 1 SPRAY NASAL (09:05)
[2023-08-19] MEDS: NON-FORMULARY ITEM 2 SPRAY NASAL ×2 (09:05→22:55)
[2023-08-19] MEDS: NON-FORMULARY ITEM 1 UNIT PO (09:06)
[2023-08-19] MEDS: Pyridium 100 MG PO ×3 (09:07→22:40)
[2023-08-19] MEDS: VIBRAMYCIN 100 MG PO ×2 (09:07→22:39)
[2023-08-19] MEDS: KCL 20 MEQ PO ×2 (09:08→15:00)
[2023-08-19] MEDS: DELTASONE 30 MG PO (09:09)
[2023-08-19] MEDS: CYMBALTA DELAYED RELEASE 30 MG PO (09:09)
[2023-08-19] MEDS: VITAMIN B-12 500 MCG PO (09:10)
[2023-08-19] MEDS: LASIX 40 MG IV ×2 (09:12→17:11)
--- NOTE | 2023-08-19 09:21 | W.PN.HOSP.TC ---
Today's Communication/Plan
-
Please see below
Assessment / Plan
Assessment / Plan
Physical Exam
General: Not in acute distress but coughing
HEENT: Normocephalic, Atraumatic
Respiratory: Rhonchi Bilaterally
Cardiac: Regular Rhythm and S1/S2
GI: Soft, Nontender and Nondistended. Positive bowel sounds.
Musculoskeletal: No Clubbing, No Cyanosis and No Edema
Assessment/Plan
Symptomatic Hypovolemic Hyponatremia related to over-diuresis. Feels weak, unable to walk, feels confused
- Hold metolazone
- Continue lasix at 40mg BID while inpatient: but if sodium begins dropping or patient is becoming dry, then hold the Lasix
- On discharge: Prescribe the Lasix as PRN (40mg if patient gains 3+ lbs)
- Hold Celebrex
- Continue slow IVFs
- Na 122-->129-->129-->136
- Okay to continue Duloxetine
Acute Confusion/Encephalopathy Possibly Multifactorial Including due to Hyponatremia
Generalized Weakness Below Baseline
Cough, Rhonchi
-Hyponatremia has resolved -- but patient remains weak and confused
-Check the following: UA, CXR, Influenza, COVID, Ammonia, Coagulation Studies, Arterial Blood Gas, Serum osmoles, Blood cultures, TSH, Vitamin B12, Cortisol
-Follow AM CBC and CMP
-Check CT Head
-Thiamine 100 mg PO daily
-Will consider neurology consult if patient's symptoms are still not improving and above studies are unremarkable
Dizziness/Lightheadedness on Standing
-Orthostatic vital signs
-Echo on 07/08/23 was unremarkable
Normocytic Anemia
-Check iron studies
-Check vitamin B12 as above
Hypokalemia
-Maintain potassium greater than 4
Prerenal azotemia
-Monitor BMP
Chronic dean cathere, requires Flomax
Recent Urethral Bleeding from a Urinary Catheter
Bladder Spasms
Reported urinary clots
-Consulted urologist, recommendations appreciated
Severe COPD
Chronic Hypoxic Respiratory Failure
-Recent admissions for Strep pneumonia and COVID
-Patient alternates 6 weeks coarse of doxycycline and Ceftin - Currently on doxycycline
-Continue prednisone as prior to admission, currently tapering down 10mg every 5 days to baseline 5mg
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
-Continue Daliresp
-Continue fluticasone and salmeterol
-Continue levalbuterol prn
-Consulted pulmonary due to increased rhonchi and per patient's and patient's daughter's request
Paroxysmal Atrial Fibrillation s/p Ablation
-Patient is not on anticoagulation as outpatient
-Continue diltiazem
-Patient stated she goes to [facility] cardiology -- discussed on 08/19/23 with cardiology, cardiology said okay for patient to follow-up outpatient
-Patient requested cardiology consultation while inpatient
Sacrum Healing Stage 3 pressure injury, POA
-Continue wound care
Anxiety/Depression
Continue Duloxetine and alprazolam
Hypothyroidism
-Continue levothyroxine
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
-Continue gabapentin and duloxetine
-Patient is currently on the maximum dose of Gabapentin (the dose she is on now is only 300mg less per day total) for her creatinine clearance - once patient's CrCl gets to 80 ml/min she can get her home dose
-Appreciate clinical pharmacist input into Gabapentin dosing
Environment/Seasonal Allergies
-Continue fexofenadine and montelukast
History of Monoclonal B-Cell Lymphocytosis
DVT proph: Lovenox
Code Status: DNR/DNI
August 19, 2023: I spoke over the phone with patient's daughter Jerrica and, in the patient's room with another one of patient's daughters while seeing patient. All questions and concerns were answered/addressed.
Total time spent today on performing chart review, documentation, placing orders, seeing and examining the patient and speaking with patient's daughters was 65 minutes.
Anticipated Discharge: > 48 hours
Subjective/Interval History
-
Date of Service: August 19, 2023
Patient was seen and examined. She reported more cough today. Patient's daughter Jerrica was on the phone at the time of patient encounter and provided more context into patient's current situation, saying that patient was able to walk before coming in
but now is too weak to walk, and that patient is also more confused.
Objective Data
-
Labs:
Laboratory Results
08/19/23
06:40
WBC 9.9
Hgb 10.7 L
Hct 31.6 L
Plt Count 280
Sodium 136
Potassium 4.0
Chloride 107
Carbon Dioxide 34 H
BUN 12
Creatinine 0.5 L
Glucose 83
Calcium 8.0 L
Vital Signs:
Vital Signs
Temp Pulse Resp BP Pulse Ox
97.9 F 76 16 116/71 98
08/19/23 07:00 08/19/23 09:17 08/19/23 09:17 08/19/23 07:00 08/19/23 09:17
I&O
08/18/23 08/19/23 08/20/23
06:59 06:59 06:59
Intake Total 2700 / 2700 2059 / 2059
Output Total 1700 / 1700 3850 / 3850
Balance 1000 / 1000 -1790 / -1790
[2023-08-19] MEDS: XOPENEX 0.63 MG INHALANT SOLUTION 0.630000000000000004 MG INH ×4 (09:23→19:28)
--- NOTE | 2023-08-19 10:26 | PN.CDI ---
CDI
- -
CDI:
Physician Documentation Request
Admit Date: 08/16/23 22:18
Dear Doctor Yonas,
Clinical Indicators:
Patient admitted with symptomatic hypovolemic hyponatremia.
08/18 WO RN note/assessment: Sacrum Healing Stage 3 pressure injury, POA.
Treatment: Honey gel, adaptic, silicone border foam dressing, change daily and PRN
Physician documentation of the type and location of wounds is required for compliant documentation. Based on the above clinical findings and your assessment, please provide the following in your progress note:
1. Location of the ulcer/wound, including laterality.
2. Type (etiology) of ulcer/wound:
- Pressure (decubitus) ulcer
- Non-healing surgical wound
- Other, please specify
- Unable to determine
3. If a pressure ulcer, please also include the stage* of the ulcer:
- Stage 1 - Skin intact, non-blanchable redness
- Stage 2 - Partial thickness loss of dermis, includes intact or open blister
- Stage 3 - Full thickness tissue not including bone, tendon or muscle
- Stage 4 - Full thickness tissue loss, including exposed bone, tendon or muscle
- Unstageable - Full thickness loss in which the base of the ulcer is covered by slough (yellow, de la rosa, ramos, green or brown) and/or eschar (de la rosa, brown or black) in the wound bed.
- Unable to determine
Use of terms such as suspected, likely, concern for, or probable (associated with a specific diagnosis that is being evaluated, monitored, or treated as if it exists) are acceptable and can be coded in the inpatient setting, when documented at the
time of discharge.
Thank you,
BERNARD Conner RN
CDI Specialist
available via tiger text
Please use your independent medical judgment in providing your response.
*Source: National Pressure Ulcer Advisory Panel (NPUAP)
--- NOTE | 2023-08-19 10:34 | PN.CDI ---
CDI
- -
CDI:
Physician Documentation Request
Admit Date: 08/16/23 22:18
Dear Doctor Yonas,
Clinical Indicators:
Patient admitted with symptomatic hypovolemic hyponatremia.
08/16 H & P, 'Daughter at the bedside notes slight confusion, and patient reports feeling very foggy.'
08/17 PN, ' Symptomatic Hypovolemic Hyponatremia...Feels weak, unable to walk, feels confused...does not feel her mentation is back to baseline.'
Sodium trend:
08/16/23 08/17/23 08/18/23
19:17 00:25 07:27
Sodium 122 L 129 L 132 L
Based on the above, could you clarify in the Progress Notes and Discharge Summary which, if any of the following, is the most likely etiology of the confusion/altered mental status.
Acute Metabolic Encephalopathy due to hyponatremia
Acute or subacute confusional state due to hyponatremia
Other, please specify
Unable to determine
Use of terms such as suspected, likely, concern for, or probable (associated with a specific diagnosis that is being evaluated, monitored, or treated as if it exists) are acceptable and can be coded in the inpatient setting, when documented at the
time of discharge.
Thank you,
BERNARD Conner RN
CDI Specialist
available via tiger text
Please use your independent medical judgment in providing your response.
--- NOTE | 2023-08-19 12:07 | W.PN.NEPH.PH ---
Today's Communication / Plan
-
- homegoing dawit recs provided
- nnephrology to sign off
Assessment/Plan
-
Assessment:
Hyponatremia (122 --> 136)
Hypokalemia
COPD
PAfib s/p ablation (not on AC)
Anxiety/depression
Hypothyroidism
Seasonal allergies
Plan:
- please replete K to >4, this will assist in hyponatremia too
- okay to continue duloxetine as it is a longtime med and Na >130 while taking
- for homegoing: likely patient can weigh herself and if she gains >3lbs, should take 40mg daily as she was prior to multiple admissions
Nephrology will sign off.
-
-
Date of Service: August 19, 2023
CC / HPI / ROS
-
Chief Complaint:
hyponatremia
History of Present Illness:
hyponatremia 122 --> 136
diuretic regimen for homegoing
Review of Systems:
neph to sign off
Labs
-
Labs:
WBC 9.9 10^3/uL (4.8-10.8) 08/19/23 06:40
RBC 3.34 10^6/uL (4.20-5.40) L 08/19/23 06:40
Hgb 10.7 g/dL (12.0-16.0) L 08/19/23 06:40
Hct 31.6 % (37.0-47.0) L 08/19/23 06:40
Plt Count 280 10^3/uL (130-400) 08/19/23 06:40
Sodium 136 mmol/L (135-145) 08/19/23 06:40
Potassium 4.0 mmol/L (3.5-5.1) 08/19/23 06:40
Chloride 107 mmol/L (98-107) 08/19/23 06:40
Carbon Dioxide 34 mmol/L (22-30) H 08/19/23 06:40
BUN 12 mg/dl (7-17) 08/19/23 06:40
Creatinine 0.5 mg/dL (0.6-1.0) L 08/19/23 06:40
eGFR > 60.00 08/19/23 06:40
Glucose 83 mg/dl (70-99) 08/19/23 06:40
Calcium 8.0 mg/dl (8.4-10.2) L 08/19/23 06:40
Albumin 3.6 g/dl (3.5-5.0) 08/16/23 19:17
Physical Exam
-
Vital Signs:
Vital Signs
Temp Pulse Resp BP Pulse Ox
97.9 F 76 16 116/71 98
08/19/23 07:00 08/19/23 09:17 08/19/23 09:17 08/19/23 07:00 08/19/23 09:17
Cardiovascular:: Regular rate and rhythm
Respiratory:: Bilateral: CTA
Lung Excursion:: Normal
Abdomen:: Nontender and Soft
Bowel Sounds:: Normal
Extremity Edema:: +1: Bilateral:
Alicia Catheter: No
[2023-08-19 12:56] LABS: Urine Albumin Negative (Neg - Trace); Urine Bilirubin Negative (Negative); Urine Character Clear (Clear); Urine Color Amber; Urine Glucose Negative (Negative); Urine Ketone Negative (Negative); Urine Leukocyte Negative (Negative); Urine Nitrite Positive (Negative); Urine Occult Blood Negative (Negative); Urine Urobilinogen Negative (Neg - 1+)
[2023-08-19 12:58] LABS: Phosphorus 1.3 mg/dl (2.5-4.5)
[2023-08-19 13:25] LABS: Urine Bacteria Few (Negative); Urine Red Blood Cell 0-2 /HPF (0-2); Urine White Cell 0-2 /HPF (0-5)
[2023-08-19 13:27] LABS: INR 0.96; PT 12.6 Sec (11.4-14.6)
[2023-08-19 13:28] LABS: COVID-19 Antigen Negative (Negative)
[2023-08-19 13:28] LABS: APTT 22.9 Sec (23.4-35.0)
[2023-08-19 13:35] LABS: Ammonia < 9 umol/L (9-30)
[2023-08-19 13:58] LABS: Osmolality Serum 290 mOsm/kg (275-300)
[2023-08-19 14:07] LABS: TSH Reflex To Free T4 0.04 uIU/ml (0.47-4.68)
--- NOTE | 2023-08-19 14:12 | CON.PUL ---
Consultation
Consultation Request
Date/Time Consultation Requested: 08/19/23
Date/Time Consultation Performed: 08/19/23
Performing Provider: Sandra
Reason for Consultation: SOB
Medical History
-
History of Present Illness:
Patient is a 72 year old F with PMH significant for PAF, severe persistent asthma, hypothyroidism admitted 08/16/23 for abnormal sodium (Na =122).� Patient was admitted here Jun for Strep pneumonia.� She was discharged to [facility] [place]'s rehab
and then admitted to [facility] with COVID.� Patient states that she then began to develop increased edema/fluid retention in the legs.� She was started on a diuretic regimen consisting of BID Lasix and daily metolazone. Labs done as an outpatient showed
new hyponatremia and patient presented to the ED for evaluation.
In the past 12 hours, she notes worsening cough/SOB. Per daughter who provides history on the phone, this was a change that they witnessed since she's been admitted.
She has prior history of severe persistent asthma, being managed by Dr Neely. She was recently on a prednisone taper, continued at 30mg daily. She does feel better with oral steroid dosing.
CXR 08/19/23 showing L basilar atelectasis but not significantly changed from prior, never had chest CT.
Recent spirometry as outpatient demonstrating poor effort/cough throughout, but FEV1 1.63L 73%.
Past Medical History
Past Medical History: Other (see list below)
Social History
Tobacco: Non-smoker
Alcohol: None
Drug: None
Family History
Family History: Reviewed & Not Pertinent
Allergies / Home Medications
Allergies
Allergy/AdvReac Type Severity Reaction Status Date / Time
camphor Allergy Severe Shortness Verified 08/19/23 05:53
of Breath
chlorhexidine Allergy Severe Shortness Verified 08/16/23 23:57
of Breath
alendronate sodium Allergy abd pain, Verified 08/19/23 05:53
[From Fosamax] diarrhea
azithromycin Allergy Rash Verified 11/20/22 14:52
calamine Allergy Rash Verified 08/16/23 23:53
codeine Allergy Rash Verified 11/20/22 14:52
latex Allergy Rash Verified 08/16/23 23:52
morphine Allergy Rash Verified 11/20/22 14:52
tetanus toxoid, adsorbed Allergy Rash Verified 11/20/22 14:52
tuberculin, purified protein Allergy Rash Verified 11/20/22 18:54
deriva
blood transfusion Allergy Severe Hives Uncoded 08/19/23 05:53
gammagard Allergy Unknown Uncoded 08/19/23 05:53
Home Medications
Medication Instructions Recorded Confirmed Last Taken Type
azelastine 137 mcg (0.1 %) nasal 1 spray intranasal DAILY Allergies 11/20/22 08/17/23 08/16/23 History
spray aerosol
celecoxib 200 mg capsule 200 mg PO BID Pain 11/20/22 08/17/23 08/16/23 12:30 History
fexofenadine 180 mg tablet 180 mg PO DAILY Allergies 11/20/22 08/17/23 08/16/23 History
fluticasone propionate 50 2 spray intranasal BID Allergies 11/20/22 08/17/23 08/16/23 History
mcg/actuation nasal
spray,suspension
gabapentin 300 mg capsule 300 mg PO HS Pain 11/20/22 08/17/23 08/15/23 History
gabapentin 600 mg tablet 600 mg PO TID@0700,1500,2200 Pain 11/20/22 08/17/23 08/16/23 16:30 History
krill oil 1 cap PO DAILY Supplement 11/20/22 08/17/23 08/16/23 12:30 History
levothyroxine 112 mcg tablet 112 mcg PO MOWEFR@07 Thyroid 11/20/22 08/17/23 08/15/23 History
levothyroxine 125 mcg tablet 125 mcg PO SUTUTHSA@07 Thyroid 11/20/22 08/17/23 08/16/23 History
montelukast 10 mg tablet 10 mg PO HS Lung/breathing issues 11/20/22 08/17/23 08/15/23 History
doxycycline hyclate 100 mg capsule 100 mg PO BID #60 caps 11/25/22 08/17/23 08/16/23 12:30 Rx
Citracal plus D 1 tab PO BID Supplement 07/03/23 08/17/23 08/16/23 12:30 History
ascorbic acid (vitamin C) 500 mg 500 mg PO QPM Supplement 07/03/23 08/17/23 08/15/23 History
tablet (Vitamin C)
cefuroxime axetil 500 mg tablet 500 mg PO BID Infection 07/03/23 08/16/23 Unknown History
cholecalciferol (vitamin D3) 25 25 mcg PO .4 TIMES A WEEK@1700 07/03/23 08/17/23 Unknown History
mcg (1,000 unit) tablet Supplement
cyanocobalamin (vitamin B-12) 500 mcg PO DAILY Supplement 07/03/23 08/17/23 08/16/23 History
1,000 mcg tablet
duloxetine 30 mg capsule,delayed 30 mg PO DAILY Depression 07/03/23 08/17/23 08/16/23 12:30 History
release
fluticasone furoate 200 2 inh inhalation R BID 07/03/23 08/17/23 Unknown History
mcg/actuation blister powder for Lung/Breathing Issues
inhalation
levalbuterol tartrate 45 1 puff inhalation R Q8HPRN PRN sob 07/03/23 08/17/23 Unknown History
mcg/actuation aerosol inhaler
roflumilast 500 mcg tablet 500 mcg PO HS Lung/Breathing Issues 07/03/23 08/17/23 08/15/23 History
(Daliresp)
salmeterol 50 mcg/dose blister 1 inh inhalation R BID 07/03/23 08/17/23 08/16/23 12:30 History
powder for inhalation (Serevent Lung/Breathing Issues
Diskus)
turmeric 400 mg capsule 400 mg PO BID Supplement 07/03/23 08/17/23 08/16/23 12:30 History
alprazolam 0.5 mg tablet 0.5 mg PO HS #3 tabs 07/12/23 08/17/23 08/15/23 Rx
levalbuterol HCl 1.25 mg/3 mL 1.25 mg (3 mL) inhalation R Q6HPRN 07/12/23 08/17/23 08/15/23 Rx
solution for nebulization PRN sob/wheeze #0 mL
diltiazem HCl 30 mg tablet 30 mg PO TID 08/16/23 08/17/23 08/16/23 16:30 History
furosemide 40 mg tablet (Lasix) 40 mg PO BID 08/16/23 08/17/23 08/15/23 07:00 History
metolazone 2.5 mg tablet 2.5 mg PO DAILY 08/16/23 08/16/23 Unknown History
midodrine 2.5 mg tablet 2.5 mg PO DAILY@1400 08/16/23 08/17/23 08/16/23 16:30 History
midodrine 5 mg tablet 5 mg PO DAILY 08/16/23 08/17/23 08/16/23 07:00 History
phenazopyridine 100 mg tablet 100 mg PO TID 08/16/23 08/17/23 08/16/23 12:30 History
(Pyridium)
prednisone 10 mg tablet 30 mg PO DAILY 08/16/23 08/17/23 08/16/23 12:30 History
Fluticasone Propionate (Flixotide) 2 inh inhalation R BID 08/17/23 08/17/23 08/16/23 History
Lung/Breathing Issues
Tylenol Arthritis 1,300 PO BID 08/17/23 08/16/23 16:30 History
benzonatate 100 mg capsule 200 mg PO TID Cough 08/17/23 08/17/23 08/16/23 14:00 History
duloxetine 60 mg PO QPM 08/17/23 08/17/23 08/15/23 History
tamsulosin 0.8 mg DAILY 08/17/23 08/17/23 08/16/23 06:00 History
Review of Systems
-
History Source: Patient
All other systems: Negative unless noted
Vitals / Labs / Diagnostic Testing
Vital Signs
Temp Pulse Resp BP Pulse Ox
98.4 F 82 18 98/68 96
08/19/23 12:53 08/19/23 12:53 08/19/23 12:53 08/19/23 12:53 08/19/23 12:53
Lab Data
08/19/23 06:40
08/19/23 06:40
Laboratory Results
08/19/23
13:02
PT 12.6
INR 0.96
APTT 22.9 L
Microbiology
08/19/23 12:39 Nasal Swab Influenza Types A & B (DIEGO) - Final
Negative for Influenza A & B, NAAT
Negative results must be combined with clinical observations
and patient history.
Nucleic Acid Amplification test (NAAT)performed on the
[employer] platform.
08/16/23 20:05 Urine Urine Culture - Final
NO GROWTH
Diagnostic Testing:
Physical Exam
-
HEENT: Normocephalic, Anicteric and Moist Mucous Membranes
Cardiovascular: S1/S2 and Regular Rhythm
Respiratory: Rhonchi (mild, b/l with coughing) and Non-Labored Respirations
GI: Soft, Non Distended and Non Tender
Neurology: Awake, Alert, Oriented, AO x 3 and No Motor Deficits
Skin: Warm, Dry and Good Color
General: Comfortable and Other (thin appearing)
Assessment
-
Patient is a 72 year old F with PMH significant for PAF, severe persistent asthma, hypothyroidism admitted 08/16/23 for abnormal sodium (Na =122).� Patient was admitted here Jun - July for Strep pneumonia.� She was discharged to [facility] [place] rehab
and then admitted to [facility] with COVID.� Patient states that she then began to develop increased edema/fluid retention in the legs.� She was started on a diuretic regimen consisting of BID Lasix and daily metolazone. In the past 12 hours, she notes
worsening cough/SOB. Per daughter who provides history on the phone, this was a change that they witnessed since she's been admitted. They have requested pulmonary evaluation 08/19/23.
Symptomatic hypovolemic hyponatremia likely 2/2 over-diuresis
Acute Confusion/Encephalopathy related to above
Generalized weakness
Chronic cough, nonproductive
Acute on chronic SOB
Urinary retention s/p Alicia
Severe persistent asthma requiring biologic therapy now with acute exacerbation
Conditions [employer]:
Adm Jul 2023 for Strep PNA with AE asthma
Adm November 2022: acute hypoxemic respiratory failure, CAP LLL infiltrate, markedly ^PCT, asthma exacerbation. Completed 5d cefepime
Severe asthma, on daliresp, fluticasone, montelukast, salmeterol
Follows up at [facility] and [facility]
Monoclonal B-cell lymphocytosis
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
AFib s/p ablation
Hypothyroidism
Hysterectomy
R hip replacement
Cataract surgery
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
Seasonal allergies
Intermittent epistaxis, historically L>>>R
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
Allergy to azithromycin
DNR
Plan
Has not demonstrated clear hypoxemia, placed on 2L NC from rehab
No prior history of O2 use at home
She has prior history of severe persistent asthma, being managed by Dr Neely.
She was recently on a prednisone taper, continued at 30mg daily. She does feel better with oral steroid dosing.
Recent spirometry as outpatient demonstrating poor effort/cough throughout, but FEV1 1.63L 73%.
Suspect patient has acute on chronic SOB due to recent episodes of strep PNA followed by COVID with deconditioning and CHF
CXR 08/19/23 showing L basilar atelectasis but not significantly changed from prior, never had chest CT.
We will obtain repeat PFT/6MWT to compare to prior done as OP if there is a change
Other imaging reviewed, will obtain CT chest as well to evaluate lung tissue
ECHO results in past reviewed--stable function
proBNP--none obtained
Careful resumption of diuresis per team
Urinary retention issues noted
Will need outpatient pulmonary evaluation in our office for PFTs and 6MWT
Reviewed with patient
Deconditioning is a factor likely as well
Will be beneficial to complete her rehab program when amenable
We will follow
Diagnostic Data
CXR 08/19/23- LLL atelectasis
CXR 07/10/23- IMPRESSION: There is consolidation in the left lower lobe consistent with improving pneumonia along with a left pleural effusion. There is probable atelectasis in the right lower lobe.
CXR 07-05-23: Progressed findings suggesting mild left lower lobe pneumonia; New moderate right lower lobe probable atelectasis; Mild cardiomegaly. Stable
CXR 07-03-23 c/w November 15 and . Baseline films with improved LLL infiltrate but persistently blurred L diaphragm. Current films without gross infiltrates but suspicious for positive spine sign at L base
Outpatient [facility] Data:
PFT:
Spirometry 05/23/2023: FEV1/FVC 82%, FEV1 1.63 L-73%, FVC 1.97 L, 66%.� No airflow obstruction.� Patient has difficulty with the maneuvers due to coughing.
[place] 12/17/22: unable.
6 MWT:
6MWT 12/17/22: At rest, O2 99% on room air, heart rate 82. With ambulation, O2 remained at 99 to 100% on room air, max heart rate 90. 5/10 on dyspnea scale. Only able to ambulate 150 feet
ECHO 07/08/23- �LV ejection fraction is 60-65%, by visual assessment. No regional wall motion�abnormalities are seen.�Normal right ventricular size and function.�No significant valvular disease.�No prior study available for comparison.
[2023-08-19 14:26] LABS: Vitamin B12 > 1000 pg/ml (239-931)
[2023-08-19 14:35] LABS: Free T4 1.19 ng/dl (0.78-2.19)
--- NOTE | 2023-08-19 14:37 | RESPNOTE ---
patient has refused arterial blood gas
--- NOTE | 2023-08-19 14:46 | CM ---
Patient accepted back at [facility] when medically stable.
Continues IV Lasix and oxygen 3 liters.
PT/OT following.
Plan: [facility] when medically cleared.
[2023-08-19] MEDS: VITAMIN B1 100 MG PO (14:59)
[2023-08-19] MEDS: ProAmatine 2.5 MG PO (14:59)
--- NOTE | 2023-08-19 16:51 | CONS.URO ---
Consultation
-
Performing Provider: Peffer
Reason for Consultation: Urinary retention, urethral bleeding
Medical History
History of Present Illness
72F with hx of multiple complex medical issues, past urologic hx of urinary retention when on large steroid doses.
Recently was admitted at [facility] and at that time she had a dean catheter placed
She had a reaction to the latex catheter and believes she developed urethral prolapse/caruncle following this. It was replaced with a latex dean.
Catheter was removed but she developed difficulty voiding
Patient was recently seen by [facility] urology and was found to have retention with PVR around 250cc and a dean was replaced
She is scheduled for a cystoscopy there this week
Urology consulted at request of patient and daughter
Past Medical History
Past Medical History: Other (See H&P)
Social History
Tobacco: Non-smoker
Alcohol: None
Family History
Family History: Reviewed & Not Pertinent
Allergies/Home Medications
Allergies
Allergy/AdvReac Type Severity Reaction Status Date / Time
alendronate sodium Allergy abd pain, Verified 08/19/23 05:53
[From Fosamax] diarrhea
azithromycin Allergy Rash Verified 11/20/22 14:52
calamine Allergy Rash Verified 08/16/23 23:53
camphor Allergy Shortness Verified 08/19/23 16:08
of Breath
chlorhexidine Allergy Shortness Verified 08/19/23 16:08
of Breath
codeine Allergy Rash Verified 11/20/22 14:52
glucose [From Gammagard S/D] Allergy Unknown Verified 08/19/23 16:08
glycine [From Gammagard S/D] Allergy Unknown Verified 08/19/23 16:08
IgA less than or equal to 50 Allergy Unknown Verified 08/19/23 16:08
mcg/mL
[From Gammagard S/D]
immune globulin,gamma (IgG) Allergy Unknown Verified 08/19/23 16:08
human
[From Gammagard S/D]
latex Allergy Rash Verified 08/16/23 23:52
morphine Allergy Rash Verified 11/20/22 14:52
tetanus toxoid, adsorbed Allergy Rash Verified 11/20/22 14:52
tuberculin, purified protein Allergy Rash Verified 11/20/22 18:54
deriva
blood transfusion Allergy Hives Uncoded 08/19/23 16:08
Home Medications
Medication Instructions Recorded Confirmed Type
azelastine 137 mcg (0.1 %) nasal 1 spray intranasal DAILY Allergies 11/20/22 08/17/23 History
spray aerosol
celecoxib 200 mg capsule 200 mg PO BID Pain 11/20/22 08/17/23 History
fexofenadine 180 mg tablet 180 mg PO DAILY Allergies 11/20/22 08/17/23 History
fluticasone propionate 50 2 spray intranasal BID Allergies 11/20/22 08/17/23 History
mcg/actuation nasal
spray,suspension
gabapentin 300 mg capsule 300 mg PO HS Pain 11/20/22 08/17/23 History
gabapentin 600 mg tablet 600 mg PO TID@0700,1500,2200 Pain 11/20/22 08/17/23 History
krill oil 1 cap PO DAILY Supplement 11/20/22 08/17/23 History
levothyroxine 112 mcg tablet 112 mcg PO MOWEFR@07 Thyroid 11/20/22 08/17/23 History
levothyroxine 125 mcg tablet 125 mcg PO SUTUTHSA@07 Thyroid 11/20/22 08/17/23 History
montelukast 10 mg tablet 10 mg PO HS Lung/breathing issues 11/20/22 08/17/23 History
doxycycline hyclate 100 mg capsule 100 mg PO BID #60 caps 11/25/22 08/17/23 Rx
Citracal plus D 1 tab PO BID Supplement 07/03/23 08/17/23 History
ascorbic acid (vitamin C) 500 mg 500 mg PO QPM Supplement 07/03/23 08/17/23 History
tablet (Vitamin C)
cefuroxime axetil 500 mg tablet 500 mg PO BID Infection 07/03/23 08/16/23 History
cholecalciferol (vitamin D3) 25 25 mcg PO .4 TIMES A WEEK@1700 07/03/23 08/17/23 History
mcg (1,000 unit) tablet Supplement
cyanocobalamin (vitamin B-12) 500 mcg PO DAILY Supplement 07/03/23 08/17/23 History
1,000 mcg tablet
duloxetine 30 mg capsule,delayed 30 mg PO DAILY Depression 07/03/23 08/17/23 History
release
fluticasone furoate 200 2 inh inhalation R BID 07/03/23 08/17/23 History
mcg/actuation blister powder for Lung/Breathing Issues
inhalation
levalbuterol tartrate 45 1 puff inhalation R Q8HPRN PRN sob 07/03/23 08/17/23 History
mcg/actuation aerosol inhaler
roflumilast 500 mcg tablet 500 mcg PO HS Lung/Breathing Issues 07/03/23 08/17/23 History
(Daliresp)
salmeterol 50 mcg/dose blister 1 inh inhalation R BID 07/03/23 08/17/23 History
powder for inhalation (Serevent Lung/Breathing Issues
Diskus)
turmeric 400 mg capsule 400 mg PO BID Supplement 07/03/23 08/17/23 History
alprazolam 0.5 mg tablet 0.5 mg PO HS #3 tabs 07/12/23 08/17/23 Rx
levalbuterol HCl 1.25 mg/3 mL 1.25 mg (3 mL) inhalation R Q6HPRN 07/12/23 08/17/23 Rx
solution for nebulization PRN sob/wheeze #0 mL
diltiazem HCl 30 mg tablet 30 mg PO TID 08/16/23 08/17/23 History
furosemide 40 mg tablet (Lasix) 40 mg PO BID 08/16/23 08/17/23 History
metolazone 2.5 mg tablet 2.5 mg PO DAILY 08/16/23 08/16/23 History
midodrine 2.5 mg tablet 2.5 mg PO DAILY@1400 08/16/23 08/17/23 History
midodrine 5 mg tablet 5 mg PO DAILY 08/16/23 08/17/23 History
phenazopyridine 100 mg tablet 100 mg PO TID 08/16/23 08/17/23 History
(Pyridium)
prednisone 10 mg tablet 30 mg PO DAILY 08/16/23 08/17/23 History
Fluticasone Propionate (Flixotide) 2 inh inhalation R BID 08/17/23 08/17/23 History
Lung/Breathing Issues
Tylenol Arthritis 1,300 PO BID 08/17/23 History
benzonatate 100 mg capsule 200 mg PO TID Cough 08/17/23 08/17/23 History
duloxetine 60 mg PO QPM 08/17/23 08/17/23 History
tamsulosin 0.8 mg DAILY 08/17/23 08/17/23 History
Physical Exam
Vital Signs
Vital Signs
Temp Pulse Resp BP Pulse Ox
97.9 F 78 18 104/71 98
08/19/23 15:15 08/19/23 15:15 08/19/23 15:15 08/19/23 15:15 08/19/23 15:15
Lab / Testing Results
Laboratory Results
08/19/23 06:40
08/19/23 06:40
Physical Exam
General: Well Developed and Other (frail, chronically ill)
GI: Soft and Non Tender
Genito-urinary: No Costovertebral Tend, Dean Catheter (clear urine) and Other (urethral caruncle/prolapse with red and inflammed mucosa)
Assessment / Plan
-
Urinary retention
- Unknown if retention is chronic or more acutely related to inflamed urethral mucosa from recent latex reaction
- I recommended following her current urologist's plan to maintain dean until scheduled cystoscopy
- Given irritation and bother from the catheter, patient requests an inpatient trial of void
- Remove dean in AM 2/14 and follow PVR
- Replace dean if retaining
Urethral bleeding
- No gross hematuria noted
- Bleeding is probably abrasion of exposed fragile urethral mucosa
- minimal spotting on pad, small occasional clot would not explain drop in HGB - would consider alternate sources if anemia is not explained by IVF/volume management
Urethral prolapse/carcuncle
- Outpatient follow up to address further
[2023-08-19] MEDS: VITAMIN C 500 MG PO (17:10)
[2023-08-19] MEDS: VITAMIN D3 (cholecalciferol) 25 MCG PO (17:10)
[2023-08-19] MEDS: LOVENOX 40 MG SC (17:10)
--- NOTE | 2023-08-19 17:22 | RESPNOTE ---
Patient refused [address]
[2023-08-19] MEDS: CYMBALTA DELAYED RELEASE 60 MG PO (22:40)
[2023-08-19] MEDS: DALIRESP 500 MCG PO (22:41)
[2023-08-19] MEDS: NEURONTIN 300 MG PO (22:41)
[2023-08-19] MEDS: SINGULAIR 10 MG PO (22:41)
[2023-08-19] MEDS: XANAX 0.5 MG PO (22:55)
[2023-08-20] VITALS (9 sets, daily range): BP systolic 80–128; BP diastolic 52–79; PULSE 88–124; O2SAT 95
[2023-08-20] MEDS: CARDIZEM 30 MG PO ×3 (05:54→22:34)
[2023-08-20] MEDS: NEURONTIN 500 MG PO ×3 (06:02→22:40)
[2023-08-20] MEDS: SYNTHROID 112 MCG PO (06:03)
[2023-08-20] MEDS: TESSALON PERLES 100 MG PO ×2 (06:03→22:46)
[2023-08-20] MEDS: FLOMAX 0.800000000000000044 MG PO (06:04)
[2023-08-20] MEDS: ProAmatine 5 MG PO ×2 (06:06→14:44)
[2023-08-20] MEDS: TYLENOL 650 MG PO ×2 (06:11→22:46)
[2023-08-20] MEDS: XOPENEX 0.63 MG INHALANT SOLUTION 0.630000000000000004 MG INH ×2 (08:03→19:37)
[2023-08-20] MEDS: NON-FORMULARY ITEM 1 UNIT INH ×2 (08:03→19:38)
[2023-08-20] MEDS: NON-FORMULARY ITEM 2 INH INH ×2 (08:03→19:38)
[2023-08-20 08:46] LABS: Hematocrit 34.8 % (37.0-47.0); Hemoglobin 11.7 g/dL (12.0-16.0); Mean Corp Hgb Conc. 33.6 g/dL (33.0-37.0); Mean Corpuscular Hgb 31.9 pg (27.0-31.0); Mean Corpuscular Volume 94.8 fL (81.0-99.0); Mean Platelet Volume 8.9 fL (7.4-10.4); Platelet Count 294 10^3/uL (130-400); Red Blood Cell Count 3.67 10^6/uL (4.20-5.40); Red Cell Dist. Width 13.6 % (11.5-14.5); White Blood Cell Count 10.9 10^3/uL (4.8-10.8)
[2023-08-20] MEDS: NON-FORMULARY ITEM 1 SPRAY NASAL (08:46)
[2023-08-20] MEDS: DELTASONE 30 MG PO (08:47)
[2023-08-20] MEDS: NON-FORMULARY ITEM 2 SPRAY NASAL ×2 (08:48→22:34)
[2023-08-20] MEDS: KCL 20 MEQ PO (08:53)
[2023-08-20] MEDS: VITAMIN B1 100 MG PO (08:54)
[2023-08-20] MEDS: VITAMIN B-12 500 MCG PO (08:54)
[2023-08-20] MEDS: NON-FORMULARY ITEM 1 UNIT PO (08:54)
[2023-08-20] MEDS: NEUTRA-PHOS POWDER PACKET PO (09:00)
--- NOTE | 2023-08-20 09:22 | W.PN.PUL3 ---
Today's Communication / Plan
-
CT reviewed showing LLL consolidation, agree with abx
There is small-mod pericardial effusion which is new, repeat ECHO to evaluate
PFT reviewed with patient, continue PO steroids/nebs
Await 6MWT
Assessment
-
Patient is a 72 year old F with PMH significant for PAF, severe persistent asthma, hypothyroidism admitted 08/16/23 for abnormal sodium (Na =122).� Patient was admitted here Jun for Strep pneumonia.� She was discharged to [facility] rehab
and then admitted to [facility] with COVID.� Patient states that she then began to develop increased edema/fluid retention in the legs.� She was started on a diuretic regimen consisting of BID Lasix and daily metolazone. In the past 12 hours, she notes
worsening cough/SOB. Per daughter who provides history on the phone, this was a change that they witnessed since she's been admitted. They have requested pulmonary evaluation 08/19/23.
Symptomatic hypovolemic hyponatremia likely 2/2 over-diuresis
Acute Confusion/Encephalopathy related to above
Generalized weakness
Chronic cough, nonproductive
Acute on chronic SOB
Urinary retention s/p Alicia
Severe persistent asthma requiring biologic therapy now with acute exacerbation
Conditions [employer]:
Adm Jul 2023 for Strep PNA with AE asthma
Adm November 2022: acute hypoxemic respiratory failure, CAP LLL infiltrate, markedly ^PCT, asthma exacerbation. Completed 5d cefepime
Severe asthma, on daliresp, fluticasone, montelukast, salmeterol
Follows up at [facility] and [facility]
Monoclonal B-cell lymphocytosis
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
AFib s/p ablation
Hypothyroidism
Hysterectomy
R hip replacement
Cataract surgery
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
Seasonal allergies
Intermittent epistaxis, historically L>>>R
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
Allergy to azithromycin
DNR
Plan
Has not demonstrated clear hypoxemia, placed on 2L NC from rehab
No prior history of O2 use at home
She has prior history of severe persistent asthma, being managed by Dr Neely.
She was recently on a prednisone taper, continued at 30mg daily. She does feel better with oral steroid dosing.
Recent spirometry as outpatient demonstrating poor effort/cough throughout, but FEV1 1.63L 73%.
Suspect patient has acute on chronic SOB due to recent episodes of strep PNA followed by COVID with deconditioning and CHF
CXR 08/19/23 showing L basilar atelectasis but not significantly changed from prior, never had chest CT.
We will obtain repeat PFT/6MWT to compare to prior done as OP if there is a change
Repeat PFT showing decline but still within moderate range
6MWT pending
Other imaging reviewed, CT Chest obtained showing LLL consolidation, there is small-mod pericardial effusion
ECHO results in past reviewed--stable function
Repeat ECHO given CT results
proBNP--none obtained
Careful resumption of diuresis per team
Urinary retention issues noted
Will need outpatient pulmonary evaluation in our office for PFTs and 6MWT
Reviewed with patient
Deconditioning is a factor likely as well
Will be beneficial to complete her rehab program when amenable
Diagnostic Data
CXR 08/19/23- LLL atelectasis
CXR 07/10/23- IMPRESSION: There is consolidation in the left lower lobe consistent with improving pneumonia along with a left pleural effusion. There is probable atelectasis in the right lower lobe.
CXR 07-05-23: Progressed findings suggesting mild left lower lobe pneumonia; New moderate right lower lobe probable atelectasis; Mild cardiomegaly. Stable
CXR 07-03-23 c/w November 15 and 23. Baseline films with improved LLL infiltrate but persistently blurred L diaphragm. Current films without gross infiltrates but suspicious for positive spine sign at L base
CT Chest 08/20/23: Left base consolidation and/or atelectasis, small amount of right base atelectasis with shift of the mediastinum toward the left. No discrete mediastinal or hilar mass identified however repeat imaging with IV contrast after
treatment is recommended to exclude an occult process. Small bibasilar pleural effusions. Small to moderate amount of pericardial effusion.
Spirometry 08/20/22: FEV1 1.21L 54%, FVC 1.46L 49%, ratio 83. Post FEV1 1.27L 57% no BD response. (mixed pattern, moderately reduced, decreased from prior testing but remains in moderate category)
PFT:
Spirometry 05/23/2023: FEV1/FVC 82%, FEV1 1.63 L-73%, FVC 1.97 L, 66%.� No airflow obstruction.� Patient has difficulty with the maneuvers due to coughing.
Crow 12/17/22: unable.
6 MWT:
6MWT 12/17/22: At rest, O2 99% on room air, heart rate 82. With ambulation, O2 remained at 99 to 100% on room air, max heart rate 90. 5/10 on dyspnea scale. Only able to ambulate 150 feet
ECHO 07/08/23- �LV ejection fraction is 60-65%, by visual assessment. No regional wall motion�abnormalities are seen.�Normal right ventricular size and function.�No significant valvular disease.�No prior study available for comparison.
Subjective Data
-
Date of Service:
Date of Service: August 20, 2023
Chief Complaint: Pulmonary Follow Up
Subjective:
patient seen and examined, no acute events on
reports her SOB is mildly improving
still coughing
Objective Data
Data Reviewed
Vital Signs / I&O / Oxygen:
Vital Signs
Temp Pulse Resp BP Pulse Ox
97.7 F 84 16 106/78 94
08/20/23 03:30 08/20/23 08:09 08/20/23 08:09 08/20/23 06:06 08/20/23 08:09
Intake and Output
08/19/23 08/20/23 08/21/23
06:59 06:59 06:59
Intake Total 2059
Output Total 3850 / 3850 3075 / 3075
Balance -1790 / -1790 -1035 / -1035
SaO2 94
Nasal Cannula flow liters per 4
minute
Physical Exam
General: Comfortable and Other (NAD, conditioned)
HEENT: Normocephalic, Anicteric and Moist Mucous Membranes
Cardiovascular: S1-S2 and Regular Rhythm
Respiratory: Rhonchi (w/ cough) and Non-Labored Respirations
GI: Soft, Non Distended and Non Tender
Neurology: Awake, Alert, Oriented, AO x 3 and No Motor Deficits
Skin: Warm, Dry and Good Color
Labs/Micro/Reports
Lab Data
08/20/23 07:59
Laboratory Results
08/19/23 08/19/23
12:18 13:02
PT 12.6
INR 0.96
APTT 22.9 L
pH Cancelled
pCO2 Cancelled
pO2 Cancelled
HCO3 Cancelled
O2 Delivery Level Cancelled
Microbiology
08/19/23 12:39 Nasal Swab Influenza Types A & B (DIEGO) - Final
Negative for Influenza A & B, NAAT
Negative results must be combined with clinical observations
and patient history.
Nucleic Acid Amplification test (NAAT)performed on the
[employer] NOW platform.
08/16/23 20:05 Urine Urine Culture - Final
NO GROWTH
[2023-08-20 09:38] LABS: ALT (SGPT) 19 U/L (0-35); AST (SGOT) 18 U/L (14-36); Albumin 2.8 g/dl (3.5-5.0); Alkaline Phosphatase 36 U/L (38-126); Blood Urea Nitrogen 15 mg/dl (7-17); Calcium 8.9 mg/dl (8.4-10.2); Carbon Dioxide 36 mmol/L (22-30); Chloride 97 mmol/L (98-107); Estimated Creatinine Clearance 74 ml/min; Glucose 81 mg/dl (70-99); Magnesium 2.1 mg/dl (1.6-2.3); Potassium 3.9 mmol/L (3.5-5.1); Sodium 133 mmol/L (135-145); Total Bilirubin 0.6 mg/dl (0.2-1.3); Total Protein 4.6 g/dl (6.3-8.2); eGFR > 60.00
[2023-08-20 10:03] LABS: Cortisol, Random 1.3 ug/dl
[2023-08-20] MEDS: LASIX 40 MG IV (12:17)
[2023-08-20] MEDS: CYMBALTA DELAYED RELEASE 30 MG PO (12:17)
[2023-08-20] MEDS: VIBRAMYCIN 100 MG PO (12:17)
[2023-08-20] MEDS: Pyridium 100 MG PO ×3 (12:18→22:39)
[2023-08-20] MEDS: NEUTRA-PHOS POWDER PACKET 250 MG PO ×3 (12:19→22:42)
--- NOTE | 2023-08-20 16:28 | CM ---
Patient seen bedside.
PT/OT recommending acute rehab.
Per patient plan d/c Friday or Friday.
Patient requested she return to the rehab floor she was on in the past, Cecilia form SMR updated.
Updated clinicals sent via [employer].
Plan: Acute Rehab when medically cleared.
[2023-08-20] MEDS: LASIX IV (16:44)
--- NOTE | 2023-08-20 17:24 | CON.ID ---
Consultation
-
Date/Time Consultation Requested: 08/20/2023 1206
Date/Time Consultation Performed: 08/20/2023 1640
Requesting Provider: Dr. Branham
Performing Provider: Dr. Carlin
Reason for Consultation: Pneumonia
Chief Complaint / Past History
History of Present Illness
Olivia Perea is a 72-year-old female being evaluated at the request of Dr. Branham in regards to pneumonia. History is obtained from chart review, along with patient interview. Patient has a significant past medical history of asthma and
COPD and presented to [facility] on 08/16 secondary to generalized weakness and fatigue. She reports that approximately 1 month prior she was an inpatient at [facility], during which time she was treated for strep pneumo pneumonia.
She ultimately was discharged to rehab, where she reports she came down with COVID-19 and was admitted to [facility]. Following that she was again transferred to rehab. Over the past several days she has noted increasing
generalized weakness. She has an ongoing and somewhat chronic cough, but denies any sputum production. She denies any hemoptysis. She denies any fevers, and denies any sweats. Recent imaging has suggested significant infiltrates, and Infectious
Diseases is asked to comment upon further antimicrobial therapy.
She reports that she follows with a excel vba developer at an outside institution who has her on rotating doxycycline and Ceftin every 6 weeks.
Past History
Additional Past Medical History:
COPD
Monoclonal B-cell lymphocytosis
P A-fib
Hypothyroidism
Gait dysfunction
Steroid-induced myopathy
Additional Past Surgical History:
Hysterectomy
Microdiscectomy
Right hip replacement
Cataract surgery
Allergy History:
alendronate sodium [From Fosamax] Allergy (Verified 08/19/23 05:53)
abd pain, diarrhea
azithromycin Allergy (Verified 11/20/22 14:52)
Rash
calamine Allergy (Verified 08/16/23 23:53)
Rash
camphor Allergy (Verified 08/19/23 16:08)
Shortness of Breath
chlorhexidine Allergy (Verified 08/19/23 16:08)
Shortness of Breath
codeine Allergy (Verified 11/20/22 14:52)
Rash
glucose [From Gammagard S/D] Allergy (Verified 08/19/23 16:08)
Unknown
glycine [From Gammagard S/D] Allergy (Verified 08/19/23 16:08)
Unknown
IgA less than or equal to 50 mcg/mL [From Gammagard S/D] Allergy (Verified 08/19/23 16:08)
Unknown
immune globulin,gamma (IgG) human [From Gammagard S/D] Allergy (Verified 08/19/23 16:08)
Unknown
latex Allergy (Verified 08/16/23 23:52)
Rash
morphine Allergy (Verified 11/20/22 14:52)
Rash
tetanus toxoid, adsorbed Allergy (Verified 11/20/22 14:52)
Rash
tuberculin, purified protein deriva Allergy (Verified 11/20/22 18:54)
Rash
blood transfusion Allergy (Uncoded 08/19/23 16:08)
Hives
Medications Reviewed: Yes
Current Antibiotics:
Doxy
Social History
Tobacco: Former Smoker
Alcohol: None
Drug: None
Personal:
Living: Alone
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
Family History
Family History: Not Pertinent
Review of Systems
Vital Signs
Temp Pulse Resp BP Pulse Ox
98.4 F 80 18 112/71 96
08/20/23 15:00 08/20/23 15:00 08/20/23 15:00 08/20/23 15:00 08/20/23 15:00
Physical Exam
Physical Exam
Constitutional: No Acute Distress, Comfortable, Chronically Ill and Non-toxic
Head: Normocephalic
Eyes: Pupils Equal, Pupils Round, No Conjunctival Hemorrhage and Sclera Anicteric
Oral: No Thrush and No Ulcers
Cardiovascular: Regular Rate and S1/S2; Negative S3/S4
Pulmonary: Rhonchi, Coarse and Non Labored
Gastrointestinal: Soft, Non Tender, Non Distended and Normal Bowel Sounds
Genito-Urinary: Negative CVA Tenderness
Extremities: Venous Insufficiency; Negative Edema or Cyanosis
Skin: Warm and Dry; Negative Rash or Jaundice
Neurological: Awake and Alert
Psychological: Calm
Lab / Diagnostic Study Results
08/20/23 07:59
08/20/23:59
Abs Immat Gran (auto) 0.1 10^3/uL (0-0.05) H 08/18/23 07:27
Absolute Neuts (auto) 4.7 10^3/uL (1.4-6.5) 08/18/23 07:27
Absolute Lymphs (auto) 3.8 10^3/uL (1.2-3.4) H 08/18/23 07:27
Absolute Monos (auto) 0.7 10^3/uL (0.1-0.6) H 08/18/23 07:27
Absolute Basos (auto) 0.0 10^3/uL (0-0.2) 08/18/23 07:27
Immature Gran % 1.1 % (0-0.5) H 08/18/23 07:27
Neutrophils % 50.3 % (42.2-75.2) 08/18/23 07:27
Lymphocytes % 41.1 % (20.5-51.1) 08/18/23 07:27
Monocytes % 7.2 % (1.7-9.3) 08/18/23 07:27
Eosinophils % 0.2 % (0-6) 08/18/23 07:27
Basophils % 0.1 % (0-2) 08/18/23 07:27
PT 12.6 Sec (11.4-14.6) 08/19/23 13:02
INR 0.96 08/19/23 13:02
Lactic Acid 1.9 mmol/L (0.7-2.0) 08/16/23 19:17
Ur Squamous Epith Cells 0-2 /LPF (Few) 08/16/23 20:05
Microbiology Results
Micro:
08/19/23 16:02 Blood Culture - Preliminary
Blood/Venous No Growth in 24 hours- Final report to follow
08/19/23 13:02 Blood Culture - Preliminary
Blood/Venous No Growth in 24 hours- Final report to follow
08/19/23 12:40 Urine Culture - Final
Urine NO GROWTH
08/19/23 12:39 Influenza Types A & B (DIEGO) - Final
Nasal Swab Negative for Influenza A & B, NAAT
Negative results must be combined with clinical observations
and patient history.
Nucleic Acid Amplification test (NAAT)performed on the
[email or web address] NOW platform.
08/16/23 20:05 Urine Culture - Final
Urine NO GROWTH
Assessment / Plan
Left lower lobe pneumonia
Hypoxemia
Suspected exacerbation of COPD
Monoclonal B-cell lymphocytosis
P A-fib
Hypothyroidism
Gait dysfunction
Hx Steroid-induced myopathy
Recommendations:
Given ongoing cough, and findings on CT, will initiate cefepime 2 g IV every 12 hours.
Attempt sputum culture.
Follow white count and temperature curve.
[2023-08-20] MEDS: MAXIPIME 2000 MG IV (18:02)
[2023-08-20] MEDS: STERILE WATER FOR INJECTION 10 ML IV (18:02)
[2023-08-20] MEDS: VITAMIN C 500 MG PO (18:03)
--- NOTE | 2023-08-20 18:33 | W.PN.HOSP.TC ---
Today's Communication/Plan
-
Antibiotics started based on CT Imaging findings
Monitor Hgb
Midodrine doses increased at morning an noon to help with orthostatic hypotension
Assessment / Plan
Assessment / Plan
Physical Exam
General: Not in acute distress but coughing
HEENT: Normocephalic, Atraumatic
Respiratory: Rhonchi Bilaterally
Cardiac: Regular Rhythm and S1/S2
GI: Soft, Nontender and Nondistended. Positive bowel sounds.
Musculoskeletal: No Clubbing, No Cyanosis and No Edema

CT Head without IV contrast as per radiologist's report:
'IMPRESSION:
No acute intracranial abnormality.'
CT Chest W/o Iv Contrast as per radiologist's report:
'IMPRESSION:
Left base consolidation and/or atelectasis, small amount of right base atelectasis with shift of the mediastinum toward the left. Limited exam without IV contrast.
No discrete mediastinal or hilar mass identified however repeat imaging with IV contrast after treatment is recommended to exclude an occult process.
Small bibasilar pleural effusions.
Small to moderate amount of pericardial effusion.'
Echocardiogram as per satellite instruction facilitator's report:
'CONCLUSIONS
Normal biventricular size and systolic function without regional wall motion
abnormality.
No significant valvular disease.
No prior study available for comparison.'

Assessment/Plan
Symptomatic Hypovolemic Hyponatremia related to over-diuresis. Feels weak, unable to walk, feels confused
- Hold metolazone
- Stopped Lasix as sodium is slightly dropping again
- On discharge: Prescribe the Lasix as PRN (40mg if patient gains 3+ lbs)
- Hold Celebrex
- Continue slow IVFs
- Na 122-->129-->129-->136
- Okay to continue Duloxetine
Acute Confusion/Encephalopathy Possibly Multifactorial Including due to Hyponatremia
Generalized Weakness Below Baseline
Left Lower Lobe Consolidation on CT Imaging
Suspected COPD Exacerbation
Cough, Rhonchi
-UA, CXR, Influenza, COVID, Ammonia, Coagulation Studies, Serum osmoles, Blood cultures, TSH, Vitamin B12, Cortisol
-Follow AM CBC and CMP
-CT Head unremarkable
-Thiamine 100 mg PO daily
-Will consider neurology consult if patient's symptoms are still not improving and above studies are unremarkable
-Infectious Disease consulted, recommendations appreciated
-Cefepime started, continue
Small bibasilar pleural effusions
Small to moderate amount of pericardial effusion
-Cardiology consulted, recommendations appreciated
-Echocardiogram ordered, results are above
-On echo, pericardial effusion is trivial
Orthostatic Hypotension
Dizziness/Lightheadedness on Standing
-Midodrine doses increased for the morning and noon
Bright red blood through vagina and rectal areas
-Monitor Hgb
-Will consider GI and OBGYN consult
Normocytic Anemia
-Check iron studies
-Checked vitamin B12 as above
Hypokalemia
-Maintain potassium greater than 4
Prerenal azotemia
-Monitor BMP
Chronic dean cathere, requires Flomax
Recent Urethral Bleeding from a Urinary Catheter
Bladder Spasms
Reported urinary clots
-Consulted urologist, recommendations appreciated
Severe COPD
Chronic Hypoxic Respiratory Failure
-Recent admissions for Strep pneumonia and COVID
-Patient alternates 6 weeks coarse of doxycycline and Ceftin - Currently on doxycycline
-Continue prednisone as prior to admission, currently tapering down 10mg every 5 days to baseline 5mg
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
-Continue Daliresp
-Continue fluticasone and salmeterol
-Continue levalbuterol prn
-Consulted pulmonary due to increased rhonchi and per patient's and patient's daughter's request
Paroxysmal Atrial Fibrillation s/p Ablation
-Patient is not on anticoagulation as outpatient
-Continue diltiazem
-Patient stated she goes to Dr. Thomas and [facility] cardiology -- discussed on 08/19/23 with cardiology, cardiology said okay for patient to follow-up outpatient
-Patient requested cardiology consultation while inpatient
Sacrum Healing Stage 3 pressure injury, POA
-Continue wound care
Anxiety/Depression
Continue Duloxetine and alprazolam
Hypothyroidism
-Continue levothyroxine
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
-Continue gabapentin and duloxetine
-Patient is currently on the maximum dose of Gabapentin (the dose she is on now is only 300mg less per day total) for her creatinine clearance - once patient's CrCl gets to 80 ml/min she can get her home dose
-Appreciate clinical pharmacist input into Gabapentin dosing
Environment/Seasonal Allergies
-Continue fexofenadine and montelukast
History of Monoclonal B-Cell Lymphocytosis
History of Steroid-Induced Myopathy
DVT proph: Lovenox
Code Status: DNR/DNI
August 19, 2023: I spoke over the phone with patient's daughter Jerrica and, in the patient's room with another one of patient's daughters while seeing patient. All questions and concerns were answered/addressed.
Anticipated Discharge: > 48 hours
Subjective/Interval History
-
Date of Service: August 20, 2023
Patient was seen and examined. She reported ongoing cough, and bright red blood through her vagina and rectal areas.
Objective Data
-
Labs:
Laboratory Results
08/20/23
07:59
WBC 10.9 H
Hgb 11.7 L
Hct 34.8 L
Plt Count 294
Sodium 133 L
Potassium 3.9
Chloride 97 L
Carbon Dioxide 36 H
BUN 15
Creatinine 0.5 L
Glucose 81
Calcium 8.9
Total Bilirubin 0.6
AST 18
ALT 19
Alkaline Phosphatase 36 L
Vital Signs:
Vital Signs
Temp Pulse Resp BP Pulse Ox
98.4 F 80 18 112/71 96
08/20/23 15:00 08/20/23 15:00 08/20/23 15:00 08/20/23 15:00 08/20/23 15:00
I&O
08/19/23 08/20/23 08/21/23
06:59 06:59 06:59
Intake Total 2059 / 2059
Output Total 3850 / 3850 3075 / 3075
Balance -1790 / -1790 -1035 / -1035
[2023-08-20] MEDS: CYMBALTA DELAYED RELEASE 60 MG PO (22:38)
[2023-08-20] MEDS: DALIRESP 500 MCG PO (22:39)
[2023-08-20] MEDS: NEURONTIN 300 MG PO (22:39)
[2023-08-20] MEDS: SINGULAIR 10 MG PO (22:39)
[2023-08-20] MEDS: XANAX 0.5 MG PO (22:48)
[2023-08-21] VITALS (7 sets, daily range): BP systolic 103–111; BP diastolic 64–76; PULSE 88–104; O2SAT 95; BMI 20.5
[2023-08-21] MEDS: MAXIPIME 2000 MG IV ×2 (05:43→17:47)
[2023-08-21] MEDS: STERILE WATER FOR INJECTION 10 ML IV ×2 (05:43→17:47)
[2023-08-21] MEDS: CARDIZEM 30 MG PO ×3 (05:44→22:17)
[2023-08-21] MEDS: TESSALON PERLES 100 MG PO ×2 (05:44→22:24)
[2023-08-21] MEDS: ProAmatine 7.5 MG PO (05:45)
[2023-08-21] MEDS: NEURONTIN 500 MG PO ×3 (05:47→22:22)
[2023-08-21] MEDS: TYLENOL 650 MG PO ×2 (05:48→22:24)
[2023-08-21] MEDS: SYNTHROID 112 MCG PO (05:48)
[2023-08-21] MEDS: MIRALAX 17 GRAMS PO (05:49)
[2023-08-21] MEDS: FLOMAX 0.800000000000000044 MG PO (06:16)
[2023-08-21 07:15] LABS: Hematocrit 33.2 % (37.0-47.0); Mean Corp Hgb Conc. 33.1 g/dL (33.0-37.0); Mean Corpuscular Hgb 31.6 pg (27.0-31.0); Mean Corpuscular Volume 95.4 fL (81.0-99.0); Platelet Count 286 10^3/uL (130-400); Red Blood Cell Count 3.48 10^6/uL (4.20-5.40); Red Cell Dist. Width 13.9 % (11.5-14.5); White Blood Cell Count 11.9 10^3/uL (4.8-10.8)
[2023-08-21 07:34] LABS: ALT (SGPT) 20 U/L (0-35); AST (SGOT) 19 U/L (14-36); Albumin 2.8 g/dl (3.5-5.0); Alkaline Phosphatase 35 U/L (38-126); Blood Urea Nitrogen 17 mg/dl (7-17); Calcium 8.8 mg/dl (8.4-10.2); Carbon Dioxide 38 mmol/L (22-30); Chloride 98 mmol/L (98-107); Estimated Creatinine Clearance 74 ml/min; Glucose 90 mg/dl (70-99); Potassium 4.5 mmol/L (3.5-5.1); Sodium 134 mmol/L (135-145); Total Bilirubin 0.6 mg/dl (0.2-1.3); Total Protein 4.6 g/dl (6.3-8.2); eGFR > 60.00
[2023-08-21] MEDS: NON-FORMULARY ITEM 1 UNIT INH ×2 (08:01→19:45)
[2023-08-21] MEDS: NON-FORMULARY ITEM 2 INH INH ×2 (08:02→19:45)
[2023-08-21] MEDS: XOPENEX 0.63 MG INHALANT SOLUTION 0.630000000000000004 MG INH ×2 (08:03→19:45)
[2023-08-21] MEDS: NON-FORMULARY ITEM 2 SPRAY NASAL ×2 (09:16→22:17)
[2023-08-21] MEDS: NON-FORMULARY ITEM 1 SPRAY NASAL (09:16)
[2023-08-21] MEDS: NON-FORMULARY ITEM 1 UNIT PO (09:17)
[2023-08-21] MEDS: CYMBALTA DELAYED RELEASE 30 MG PO (09:18)
[2023-08-21] MEDS: DELTASONE 30 MG PO (09:18)
[2023-08-21] MEDS: VITAMIN B1 100 MG PO (09:18)
[2023-08-21] MEDS: Pyridium 100 MG PO ×3 (09:18→22:23)
[2023-08-21] MEDS: VITAMIN B-12 500 MCG PO (09:19)
--- NOTE | 2023-08-21 09:19 | W.PN.PUL3 ---
Today's Communication / Plan
-
Schedule for bronchoscopy for tomorrow AM
We discussed risks of procedure, she is agreeable
NPO after MN
Continue abx per ID
Assessment
-
Patient is a 72 year old F with PMH significant for PAF, severe persistent asthma, hypothyroidism admitted 08/16/23 for abnormal sodium (Na =122).� Patient was admitted here Jun for Strep pneumonia.� She was discharged to [facility]'s rehab
and then admitted to [facility] with COVID.� Patient states that she then began to develop increased edema/fluid retention in the legs.� She was started on a diuretic regimen consisting of BID Lasix and daily metolazone. In the past 12 hours, she notes
worsening cough/SOB. Per daughter who provides history on the phone, this was a change that they witnessed since she's been admitted. They have requested pulmonary evaluation 08/19/23.
Symptomatic hypovolemic hyponatremia likely 2/2 over-diuresis
Acute Confusion/Encephalopathy related to above
Generalized weakness
Chronic cough, nonproductive
Acute on chronic SOB
Urinary retention s/p Alicia
Severe persistent asthma requiring biologic therapy now with acute exacerbation
LLL consolidation
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
Adm Jul 2023 for Strep PNA with AE asthma
Adm November 2022: acute hypoxemic respiratory failure, CAP LLL infiltrate, markedly ^PCT, asthma exacerbation. Completed 5d cefepime
Severe asthma, on daliresp, fluticasone, montelukast, salmeterol
Follows up at [facility] and [facility]
Monoclonal B-cell lymphocytosis
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
AFib s/p ablation
Hypothyroidism
Hysterectomy
R hip replacement
Cataract surgery
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
Seasonal allergies
Intermittent epistaxis, historically L>>>R
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
Allergy to azithromycin
DNR
Plan
Has not demonstrated clear hypoxemia, placed on 2L NC from rehab
No prior history of O2 use at home
She has prior history of severe persistent asthma, being managed by Dr Neely.
She was recently on a prednisone taper, continued at 30mg daily. She does feel better with oral steroid dosing.
Recent spirometry as outpatient demonstrating poor effort/cough throughout, but FEV1 1.63L 73%.
Suspect patient has acute on chronic SOB due to recent episodes of strep PNA followed by COVID with deconditioning and CHF
CXR 08/19/23 showing L basilar atelectasis but not significantly changed from prior, never had chest CT.
We will obtain repeat PFT/6MWT to compare to prior done as OP if there is a change
Repeat PFT showing decline but still within moderate range
6MWT pending
Other imaging reviewed, CT Chest obtained showing LLL consolidation, there is small-mod pericardial effusion
We discussed role of bronchoscopy and evaluation, she is agreeable
We will arrange, NPO after MN
ECHO results in past reviewed--stable function
Repeat ECHO given CT results
proBNP--none obtained
Careful resumption of diuresis per team
Urinary retention issues noted
Will need outpatient pulmonary evaluation in our office for PFTs and 6MWT
Reviewed with patient
Deconditioning is a factor likely as well
Will be beneficial to complete her rehab program when amenable
Diagnostic Data
CXR 08/19/23- LLL atelectasis
CXR 07/10/23- IMPRESSION: There is consolidation in the left lower lobe consistent with improving pneumonia along with a left pleural effusion. There is probable atelectasis in the right lower lobe.
CXR 07-05-23: Progressed findings suggesting mild left lower lobe pneumonia; New moderate right lower lobe probable atelectasis; Mild cardiomegaly. Stable
CXR 07-03-23 c/w November 15 and 23. Baseline films with improved LLL infiltrate but persistently blurred L diaphragm. Current films without gross infiltrates but suspicious for positive spine sign at L base
CT Chest 08/20/23: Left base consolidation and/or atelectasis, small amount of right base atelectasis with shift of the mediastinum toward the left. No discrete mediastinal or hilar mass identified however repeat imaging with IV contrast after
treatment is recommended to exclude an occult process. Small bibasilar pleural effusions. Small to moderate amount of pericardial effusion.
Spirometry 08/20/22: FEV1 1.21L 54%, FVC 1.46L 49%, ratio 83. Post FEV1 1.27L 57% no BD response. (mixed pattern, moderately reduced, decreased from prior testing but remains in moderate category)
PFT:
Spirometry 05/23/2023: FEV1/FVC 82%, FEV1 1.63 L-73%, FVC 1.97 L, 66%.� No airflow obstruction.� Patient has difficulty with the maneuvers due to coughing.
Crow 12/17/22: unable.
6 MWT:
6MWT 12/17/22: At rest, O2 99% on room air, heart rate 82. With ambulation, O2 remained at 99 to 100% on room air, max heart rate 90. 5/10 on dyspnea scale. Only able to ambulate 150 feet
ECHO 07/08/23- �LV ejection fraction is 60-65%, by visual assessment. No regional wall motion�abnormalities are seen.�Normal right ventricular size and function.�No significant valvular disease.�No prior study available for comparison.
Subjective Data
-
Date of Service:
Date of Service: August 21, 2023
Chief Complaint: Pulmonary Follow Up
Subjective:
patient seen, cough remains the same
minor benefit since abx started
nonproductive still
Objective Data
Data Reviewed
Vital Signs / I&O / Oxygen:
Vital Signs
Temp Pulse Resp BP Pulse Ox
97.5 F 81 16 111/71 96
08/21/23 05:00 08/21/23 05:44 08/21/23 05:00 08/21/23 05:44 08/21/23 05:00
Intake and Output
08/20/23 08/21/23 08/22/23
06:59 06:59 06:59
Intake Total 2039 / 0 1380 / 1380
Output Total 3075 / 3075 2725 / 2725
Balance -1035 / -1035 -1345 / -1345
SaO2 96
Nasal Cannula flow liters per 4
minute
Physical Exam
General: Comfortable and Other (NAD, conditioned)
HEENT: Normocephalic, Anicteric and Moist Mucous Membranes
Cardiovascular: S1-S2 and Regular Rhythm
Respiratory: Rhonchi (w/ cough) and Non-Labored Respirations
GI: Soft, Non Distended and Non Tender
Neurology: Awake, Alert, Oriented, AO x 3 and No Motor Deficits
Skin: Warm, Dry and Good Color
Labs/Micro/Reports
Lab Data
08/21/23 06:40
08/21/23 06:40
Microbiology
08/19/23 16:02 Blood/Venous Blood Culture - Preliminary
No Growth in 24 hours- Final report to follow
08/19/23 13:02 Blood/Venous Blood Culture - Preliminary
No Growth in 24 hours- Final report to follow
08/19/23 12:40 Urine Urine Culture - Final
NO GROWTH
08/19/23 12:39 Nasal Swab Influenza Types A & B (DIEGO) - Final
Negative for Influenza A & B, NAAT
Negative results must be combined with clinical observations
and patient history.
Nucleic Acid Amplification test (NAAT)performed on the
[employer] platform.
08/16/23 20:05 Urine Urine Culture - Final
NO GROWTH
[2023-08-21] MEDS: KCL 20 MEQ PO (09:20)
[2023-08-21 09:40] LABS: Phosphorus 2.7 mg/dl (2.5-4.5)
--- NOTE | 2023-08-21 10:30 | PTCARENOTE ---
10:30 Noted pt had bowel movement in toilet with bright red blood surrounding soft stool. Pt denies discomfort. DR. Yonas mcgarry (MD notified GI doctor). Explain to pt, continue to monitor pt closely.
--- NOTE | 2023-08-21 10:30 | PTCARENOTE ---
10:30 Noted pt had bowel movement in toilet with bright red blood surrounding soft stool. Pt denies discomfort. Notified DR. Branham and ordered GI consult. Explain to pt, continue to monitor pt closely.
[2023-08-21 10:48] LABS: Folate 6.3 ng/ml (2.76-20)
--- NOTE | 2023-08-21 10:58 | W.PN.HOSP.TC ---
Today's Communication/Plan
-
Doing better
Continue antibiotics
Resent sputum culture
Assessment / Plan
Assessment / Plan
Physical Exam
General: Not in acute distress but coughing (coughing improved)
HEENT: Normocephalic, Atraumatic
Respiratory: Rhonchi Bilaterally
Cardiac: Regular Rhythm and S1/S2
GI: Soft, Nontender and Nondistended. Positive bowel sounds.
Musculoskeletal: No Clubbing, No Cyanosis and No Edema

CT Head without IV contrast as per radiologist's report:
'IMPRESSION:
No acute intracranial abnormality.'
CT Chest W/o Iv Contrast as per radiologist's report:
'IMPRESSION:
Left base consolidation and/or atelectasis, small amount of right base atelectasis with shift of the mediastinum toward the left. Limited exam without IV contrast.
No discrete mediastinal or hilar mass identified however repeat imaging with IV contrast after treatment is recommended to exclude an occult process.
Small bibasilar pleural effusions.
Small to moderate amount of pericardial effusion.'
Echocardiogram as per skeet operator's report:
'CONCLUSIONS
Normal biventricular size and systolic function without regional wall motion
abnormality.
No significant valvular disease.
No prior study available for comparison.'

Assessment/Plan
Symptomatic Hypovolemic Hyponatremia related to over-diuresis. Feels weak, unable to walk, feels confused
- Hold metolazone
- Stopped Lasix as sodium was slightly dropping again
- On discharge: Prescribe the Lasix as PRN (40mg if patient gains 3+ lbs)
- Hold Celebrex
- Continue slow IVFs
- Na 122-->129-->129-->136-->...-->134
- Okay to continue Duloxetine
Acute Confusion/Encephalopathy - IMPROVING - Possibly Multifactorial Including due to Hyponatremia
Generalized Weakness Below Baseline
Left Lower Lobe Consolidation on CT Imaging
Suspected COPD Exacerbation
Cough, Rhonchi
-UA (urine culture with no growth), Influenza (negative), COVID (negative), Ammonia (low), Coagulation Studies (okay), Serum osmoles (okay), Blood cultures (no growth to date), TSH (low - but should recheck outpatient), Vitamin B12 (high)
-Cortisol (in the morning) was low at 1.3 -- patient is on prednisone -- will consult endocrinology
-Follow AM CBC and CMP
-CT Head unremarkable
-Thiamine 100 mg PO daily
-Will consider neurology consult if patient's symptoms are still not improving and above studies are unremarkable
-Infectious Disease consulted, recommendations appreciated
-Cefepime started, continue
Small bibasilar pleural effusions
Small to moderate amount of pericardial effusion
-Cardiology consulted, recommendations appreciated
-Echocardiogram ordered, results are above
-On echo, pericardial effusion is trivial
Orthostatic Hypotension
Dizziness/Lightheadedness on Standing
-Midodrine doses increased for the morning and noon
Bright red blood through vagina and rectal areas
Bright Red Blood Per Rectum on 08/21/23
-Monitor Hgb
-Consulted GI, recommendations appreciated
-Consider OBGYN consult
Normocytic Anemia
-Check iron studies
-Checked vitamin B12 as above: Vitamin B12 is high
Hypokalemia
-Maintain potassium greater than 4
Prerenal azotemia
-Monitor BMP
Chronic dean catheter, requires Flomax
Recent Urethral Bleeding from a Urinary Catheter
Bladder Spasms
Reported urinary clots
-Consulted urologist, recommendations appreciated
Severe COPD
Chronic Hypoxic Respiratory Failure
-Recent admissions for Strep pneumonia and COVID
-Patient alternates 6 weeks coarse of doxycycline and Ceftin - Currently on doxycycline
-Continue prednisone as prior to admission, currently tapering down 10mg every 5 days to baseline 5mg
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
-Continue Daliresp
-Continue fluticasone and salmeterol
-Continue levalbuterol prn
-Consulted pulmonary due to increased rhonchi and per patient's and patient's daughter's request
Paroxysmal Atrial Fibrillation s/p Ablation
-Patient is not on anticoagulation as outpatient
-Continue diltiazem
-Patient stated she goes to Dr. Thomas and [facility] cardiology -- discussed on 08/19/23 with cardiology, cardiology said okay for patient to follow-up outpatient
-Patient requested cardiology consultation while inpatient
Sacrum Healing Stage 3 pressure injury, POA
-Continue wound care
Anxiety/Depression
Continue Duloxetine and alprazolam
Hypothyroidism
-Continue levothyroxine
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
-Continue gabapentin and duloxetine
-Patient is currently on the maximum dose of Gabapentin (the dose she is on now is only 300mg less per day total) for her creatinine clearance - once patient's CrCl gets to 80 ml/min she can get her home dose
-Appreciate clinical pharmacist input into Gabapentin dosing
Environment/Seasonal Allergies
-Continue fexofenadine and montelukast
History of Monoclonal B-Cell Lymphocytosis
History of Steroid-Induced Myopathy
DVT proph: Lovenox
Code Status: DNR/DNI
August 19, 2023: I spoke over the phone with patient's daughter Jerrica and, in the patient's room with another one of patient's daughters while seeing patient. All questions and concerns were answered/addressed.
Anticipated Discharge: > 48 hours
Subjective/Interval History
-
Date of Service: August 21, 2023
Patient was seen and examined. She mentioned she is doing better today, cough is better. She did have bright red blood per rectum earlier this morning.
Objective Data
-
Labs:
Laboratory Results
08/21/23
06:40
WBC 11.9 H
Hgb 11.0 L
Hct 33.2 L
Plt Count 286
Sodium 134 L
Potassium 4.5
Chloride 98
Carbon Dioxide 38 H
BUN 17
Creatinine 0.6
Glucose 90
Calcium 8.8
Total Bilirubin 0.6
AST 19
ALT 20
Alkaline Phosphatase 35 L
Vital Signs:
Vital Signs
Temp Pulse Resp BP Pulse Ox
98.9 F 103 18 103/66 98
08/21/23 08:30 08/21/23 08:30 08/21/23 08:30 08/21/23 08:30 08/21/23 08:30
I&O
08/20/23 08/21/23 08/22/23
06:59 06:59 06:59
Intake Total 2039 / 2039 1380 / 1380
Output Total 3075 / 3075 2725 / 2725
Balance -1035 / -1035 -1345 / -1345
[2023-08-21] MEDS: SYNTHROID 125 MCG PO (11:27)
--- NOTE | 2023-08-21 13:43 | W.PN.ID1 ---
Date of Service
Date of Service: August 21, 2023
Today's Communication
Continue antibiotics. Await sputum culture.
Assessment / Plan
Left lower lobe pneumonia
Hypoxemia
Suspected exacerbation of COPD
Monoclonal B-cell lymphocytosis
P A-fib
Hypothyroidism
Gait dysfunction
Hx Steroid-induced myopathy
Recommendations:
Continue with cefepime 2 g IV every 12 hours.
Patient has produced sputum; await culture results.
Tentatively for bronchoscopy tomorrow AM.
Follow white count and temperature curve.
Chief Complaint
-: Pneumonia
Subjective / Review of Systems
Review of Systems: No Fever, No Chills, Cough and Sputum Production (Slight)
Vital Signs / Physical Exam
Vital Signs
Vital Signs
Temp Pulse Resp BP Pulse Ox
98.2 F 87 16 106/71 97
08/21/23 11:50 08/21/23 11:50 08/21/23 11:50 08/21/23 11:50 08/21/23 11:50
Physical Exam
Constitutional: No Acute Distress, Comfortable and Non-toxic
Eyes: Sclera Anicteric
Pulmonary: Non Labored
Gastrointestinal: Soft and Non Distended
Neurological: Awake, Alert and Oriented
Psychological: Calm
Objective Data
Lab Data
Lab Results
08/21/23 06:40
08/21/23 06:40
PT 12.6 Sec (11.4-14.6) 08/19/23 13:02
INR 0.96 08/19/23 13:02
APTT 22.9 Sec (23.4-35.0) L 08/19/23 13:02
Estimated Creat Clear 74 ml/min 08/21/23 06:40
Lactic Acid 1.9 mmol/L (0.7-2.0) 08/16/23 19:17
Total Bilirubin 0.6 mg/dl (0.2-1.3) 08/21/23 06:40
AST 19 U/L (14-36) 08/21/23 06:40
ALT 20 U/L (0-35) 08/21/23 06:40
Alkaline Phosphatase 35 U/L (38-126) L 08/21/23 06:40
Most recent labs reviewed.
Micro Results:
08/21/23 11:11 Respiratory Culture - Pending
Sputum Gram Stain - Preliminary
08/19/23 13:02 Blood Culture - Preliminary
Blood/Venous No Growth in 48 hours- Final report to follow
08/20/23 20:54 Respiratory Culture - Final
Sputum Gram Stain - Final
08/19/23 16:02 Blood Culture - Preliminary
Blood/Venous No Growth in 24 hours- Final report to follow
08/19/23 12:40 Urine Culture - Final
Urine NO GROWTH
08/19/23 12:39 Influenza Types A & B (DIEGO) - Final
Nasal Swab Negative for Influenza A & B, NAAT
Negative results must be combined with clinical observations
and patient history.
Nucleic Acid Amplification test (NAAT)performed on the
[employer] platform.
08/16/23 20:05 Urine Culture - Final
Urine NO GROWTH
--- NOTE | 2023-08-21 14:56 | CON.GI ---
Addendum entered and electronically signed by Juve Aj MD 08/21/23 16:01:
I saw and examined the patient.
The PA's note was reviewed and I agree with the note.
Comment:
The patient is a 72 year-old female with multiple co-morbidities admitted for hyponatremia on outside lab work and slight confusion, sent to the ER on 08/16/2023.� Patient also found to have a left lower lobe consolidation.� Going to have
bronchoscopy tomorrow for further workup.� Pt then had BRBPR on 08/20/2023.�
Impression / Rec:
1. Rectal bleeding - had been having rectal bleeding for few days/week as per pt.� Never had colonoscopy. Hemoglobin remains stable.� She states that she has had episodes of bright red blood per rectum with some clots.� Large external non-bleeding
hemorrhoids as per ANASTASIA who performed ANNA.� Suspect hemorrhoidal bleeding. Will plan for flx sigmoidoscopy for further eval, timing may have to wait until Friday as she's planned for broch tomorrow. Monitor Hgb. Will follow.
Original Note:
Consultation
-
Date/Time Consultation Requested: 08/21/23 1058
Date/Time Consultation Performed: 08/21/23 1440
Requesting Provider: Dr. Branham
Performing Provider: Dr. Aj/ANASTASIA Andrew
Reason for Consultation: rectal bleeding
Medical History
Chief Complaint / HPI
History of Present Illness:
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 for strep pneumonia bacteremia secondary to left basilar community-acquired pneumonia, recently on's IV steroids transition to oral steroids, also with episode of SVT during that hospitalization when on steroids started on diltiazem she was
at [facility] from 07/03/2023 to 07/14/2023. She was discharged to [facility] rehab. She was there for 1 week and then subsequently got COVID and was admitted to [facility] for 1 week and then transferred back to
[facility] rehab. She was home for 1 week and then started feeling short of breath with intermittent coughing without sputum production. She started having lower extremity edema and was started on Lasix 40 mg twice a day as well as
metolazone 2.5 mg daily. She was found to have hyponatremia on outside lab work, slight confusion and was sent to the emergency room for further evaluation on 08/16/2023. The patient was treated for hypovolemia and hyponatremia. She was also found
to have a left lower lobe pneumonia and hypoxemia as well as suspected exacerbation of COPD. The patient started having bright red blood from her vagina and rectum. This started occurring yesterday. The patient states that she started having
constipation a couple weeks ago and was started on MiraLAX. Prior to that she had no issues with her bowel habits that were soft formed and regular. She does have a history of hemorrhoids which she states is secondary to giving her children.
She would have an issue with hemorrhoids approximately once a year and she states she would 'push them back up'. Ever since yesterday she started having bright red blood associated with bowel movements and then sometimes just bright red blood per
rectum with clots. The patient states she also feels as if there is something just inside her rectum as well. She also states that she started having vaginal bleeding at the same time. She attributes this to a 'Alicia catheter being placed in my
vagina by accident' the patient denies any nausea, vomiting, melena, dysphagia or dyne aphasia. She denies any early satiety or unintentional weight loss. She has a very distant uncle with history of colon cancer otherwise has no family history of
gastrointestinal malignancy. She has never had a colonoscopy or endoscopy before. The patient is scheduled for bronchoscopy tomorrow for her left lower lobe consolidation.
Past Medical History
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
Past Surgical History: Other (Hysterectomy, right hip replacement, cataract surgery, back surgery,)
Social History
Tobacco: Former Smoker
Alcohol: None
Drug: None
Family History
Family History: Other (Remote family history of colon cancer. No other gastrointestinal malignancies. No family history of inflammatory bowel disease.)
Allergies / Home Medications
Allergy/AdvReac Type Severity Reaction Status Date / Time
alendronate sodium Allergy abd pain, Verified 08/19/23 05:53
[From Fosamax] diarrhea
azithromycin Allergy Rash Verified 11/20/22 14:52
calamine Allergy Rash Verified 08/16/23 23:53
camphor Allergy Shortness Verified 08/19/23 16:08
of Breath
chlorhexidine Allergy Shortness Verified 08/19/23 16:08
of Breath
codeine Allergy Rash Verified 11/20/22 14:52
glucose [From Gammagard S/D] Allergy Unknown Verified 08/19/23 16:08
glycine [From Gammagard S/D] Allergy Unknown Verified 08/19/23 16:08
IgA less than or equal to 50 Allergy Unknown Verified 08/19/23 16:08
mcg/mL
[From Gammagard S/D]
immune globulin,gamma (IgG) Allergy Unknown Verified 08/19/23 16:08
human
[From Gammagard S/D]
latex Allergy Rash Verified 08/16/23 23:52
morphine Allergy Rash Verified 11/20/22 14:52
tetanus toxoid, adsorbed Allergy Rash Verified 11/20/22 14:52
tuberculin, purified protein Allergy Rash Verified 11/20/22 18:54
deriva
blood transfusion Allergy Hives Uncoded 08/19/23 16:08
Medication Instructions Recorded
azelastine 137 mcg (0.1 %) nasal 1 spray intranasal DAILY Allergies 11/20/22
spray aerosol
celecoxib 200 mg capsule 200 mg PO BID Pain 11/20/22
fexofenadine 180 mg tablet 180 mg PO DAILY Allergies 11/20/22
fluticasone propionate 50 2 spray intranasal BID Allergies 11/20/22
mcg/actuation nasal
spray,suspension
gabapentin 300 mg capsule 300 mg PO HS Pain 11/20/22
gabapentin 600 mg tablet 600 mg PO TID@0700,1500,2200 Pain 11/20/22
krill oil 1 cap PO DAILY Supplement 11/20/22
levothyroxine 112 mcg tablet 112 mcg PO MOWEFR@07 Thyroid 11/20/22
levothyroxine 125 mcg tablet 125 mcg PO SUTUTHSA@07 Thyroid 11/20/22
montelukast 10 mg tablet 10 mg PO HS Lung/breathing issues 11/20/22
doxycycline hyclate 100 mg capsule 100 mg PO BID #60 caps 11/25/22
Citracal plus D 1 tab PO BID Supplement 07/03/23
ascorbic acid (vitamin C) 500 mg 500 mg PO QPM Supplement 07/03/23
tablet (Vitamin C)
cefuroxime axetil 500 mg tablet 500 mg PO BID Infection 07/03/23
cholecalciferol (vitamin D3) 25 25 mcg PO .4 TIMES A WEEK@1700 07/03/23
mcg (1,000 unit) tablet Supplement
cyanocobalamin (vitamin B-12) 500 mcg PO DAILY Supplement 07/03/23
1,000 mcg tablet
duloxetine 30 mg capsule,delayed 30 mg PO DAILY Depression 07/03/23
release
fluticasone furoate 200 2 inh inhalation R BID 07/03/23
mcg/actuation blister powder for Lung/Breathing Issues
inhalation
levalbuterol tartrate 45 1 puff inhalation R Q8HPRN PRN sob 07/03/23
mcg/actuation aerosol inhaler
roflumilast 500 mcg tablet 500 mcg PO HS Lung/Breathing Issues 07/03/23
(Daliresp)
salmeterol 50 mcg/dose blister 1 inh inhalation R BID 07/03/23
powder for inhalation (Serevent Lung/Breathing Issues
Diskus)
turmeric 400 mg capsule 400 mg PO BID Supplement 07/03/23
alprazolam 0.5 mg tablet 0.5 mg PO HS #3 tabs 07/12/23
levalbuterol HCl 1.25 mg/3 mL 1.25 mg (3 mL) inhalation R Q6HPRN 07/12/23
solution for nebulization PRN sob/wheeze #0 mL
diltiazem HCl 30 mg tablet 30 mg PO TID 08/16/23
furosemide 40 mg tablet (Lasix) 40 mg PO BID 08/16/23
metolazone 2.5 mg tablet 2.5 mg PO DAILY 08/16/23
midodrine 2.5 mg tablet 2.5 mg PO DAILY@1400 08/16/23
midodrine 5 mg tablet 5 mg PO DAILY 08/16/23
phenazopyridine 100 mg tablet 100 mg PO TID 08/16/23
(Pyridium)
prednisone 10 mg tablet 30 mg PO DAILY 08/16/23
Fluticasone Propionate (Flixotide) 2 inh inhalation R BID 08/17/23
Lung/Breathing Issues
Tylenol Arthritis 1,300 PO BID 08/17/23
benzonatate 100 mg capsule 200 mg PO TID Cough 08/17/23
duloxetine 60 mg PO QPM 08/17/23
tamsulosin 0.8 mg DAILY 08/17/23
Review of Systems
-
All other systems: A 12 pt ROS was Negative except as stated above in HPI
Vital Signs
Temp Pulse Resp BP Pulse Ox
98.2 F 87 16 106/71 97
08/21/23 11:50 08/21/23 11:50 08/21/23 11:50 08/21/23 11:50 08/21/23 11:50
Physical Exam
Exam
General: No Apparent Distress
HEENT: Normocephalic
Respiratory: Clear (Anterior)
Cardiac: Regular Rhythm
GI: Soft, Non Tender, Non Distended and Normal Bowel Sounds
Rectal: Other (Patient with large external hemorrhoids, no signs of fissure or recent bleeding of hemorrhoids. Rectal exam attempted however very limited due to patient discomfort. Only able to get approximately 2 cm within anus. No obvious blood
however again very limited.)
Musculoskeletal: No Edema
Skin: Warm and Dry
Neuro: AO x 3
Psych: Calm
Results
WBC 11.9 10^3/uL (4.8-10.8) H 08/21/23 06:40
Hgb 11.0 g/dL (12.0-16.0) L 08/21/23 06:40
Hct 33.2 % (37.0-47.0) L 08/21/23 06:40
MCV 95.4 fL (81.0-99.0) 08/21/23 06:40
Plt Count 286 10^3/uL (130-400) 08/21/23 06:40
Absolute Neuts (auto) 4.7 10^3/uL (1.4-6.5) 08/18/23 07:27
PT 12.6 Sec (11.4-14.6) 08/19/23 13:02
INR 0.96 08/19/23 13:02
APTT 22.9 Sec (23.4-35.0) L 08/19/23 13:02
Sodium 134 mmol/L (135-145) L 08/21/23 06:40
Potassium 4.5 mmol/L (3.5-5.1) 08/21/23 06:40
Chloride 98 mmol/L (98-107) 08/21/23 06:40
Carbon Dioxide 38 mmol/L (22-30) H 08/21/23 06:40
BUN 17 mg/dl (7-17) 08/21/23 06:40
Creatinine 0.6 mg/dL (0.6-1.0) 08/21/23 06:40
Calcium 8.8 mg/dl (8.4-10.2) 08/21/23 06:40
Total Bilirubin 0.6 mg/dl (0.2-1.3) 08/21/23 06:40
AST 19 U/L (14-36) 08/21/23 06:40
ALT 20 U/L (0-35) 08/21/23 06:40
Alkaline Phosphatase 35 U/L (38-126) L 08/21/23 06:40
Lipase 318 U/L (23-300) H 08/16/23 19:17
Diagnostic Image Results:
Chest x-ray 08/19/2023:
IMPRESSION:
Left basilar pneumonia or atelectasis.
Electronically signed by Ministerio Mendoza 08/19/2023 2:[address] 08/19/23:
IMPRESSION:
No acute intracranial abnormality.
Electronically signed by Ministerio Mendoza 08/19/2023 2:[address] chest 08/20/2023:
IMPRESSION:
Left base consolidation and/or atelectasis, small amount of right base atelectasis with shift of the mediastinum toward the left. Limited exam without IV contrast.
No discrete mediastinal or hilar mass identified however repeat imaging with IV contrast after treatment is recommended to exclude an occult process.
Small bibasilar pleural effusions.
Small to moderate amount of pericardial effusion.
Electronically signed by Kacie Reese MD 08/20/2023 10:03 AM
Prior GI Procedures:
EGD: Never had
Colonoscopy: Never had
Assessment / Plan
-
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 for strep pneumonia bacteremia secondary to left basilar community-acquired pneumonia, recently on's IV steroids transition to oral steroids, also with episode of SVT during that hospitalization when on steroids started on diltiazem she was
at [facility] from 07/03/2023 to 07/14/2023. She was discharged to [facility] rehab. She was there for 1 week and then subsequently got COVID and was admitted to [facility] for 1 week and then transferred back to
[facility] rehab. She was home for 1 week and then started feeling short of breath with intermittent coughing without sputum production. She started having lower extremity edema and was started on Lasix 40 mg twice a day as well as
metolazone 2.5 mg daily. She was found to have hyponatremia on outside lab work, slight confusion and was sent to the emergency room for further evaluation on 08/16/2023. Patient also found to have a left lower lobe consolidation. Going to have
bronchoscopy tomorrow for further workup. Also being seen by infectious disease. We are asked to evaluate for bright red blood per rectum that started on 08/20/2023. Patient also having vaginal bleeding as well. Hemoglobin remains stable. She
states that she has had episodes of bright red blood per rectum with some clots. She also feels as if there is something within her rectum as well. She has been having soft formed daily bowel movements. She had to be started on MiraLAX while at
[facility]. She was also recently started on diltiazem while at [facility] for SVT. Rectal exam attempted on patient however was extremely limited and unsuccessful beyond 2 cm due to patient discomfort. Patient had large
external hemorrhoids that were nonbleeding. Patient has never had a colonoscopy before. Patient having vaginal bleeding which she attributes to misplacement of Alicia catheter.
Impression:
Rectal bleeding
Recent change in bowel habits
Left lower lobe pneumonia, bronchoscopy tomorrow
Hypoxemia
Monoclonal B-cell lymphocytosis
Paroxysmal A-fib not on anticoagulation
Hypothyroidism
Plan:
-Patient for bronchoscopy first
-Patient agreeable for flexible sigmoidoscopy, timing to be determined after bronchoscopy and degree of rectal bleeding during this admission.
-Will obtain x-ray of abdomen to evaluate for fecal burden as was unable to evaluate during rectal exam
-Trend hemoglobin
-Antibiotics per pulmonary/internal medicine/infectious disease
-Further recommendations to follow
Data Reviewed
-
Radiology: Report Reviewed by me
CT Scan: Report Reviewed by me
Old Records: Reviewed
-
-
Thank you for consultation and allowing me to participate in the patient's care. Please call the clinical transformation specialist GI physician during the after hours with any questions or concerns.
[2023-08-21] MEDS: ProAmatine 5 MG PO (14:57)
--- NOTE | 2023-08-21 15:50 | W.PN.URO.CBU ---
Today's Communication / Plan
-
Retention and hematuria resolved
Outpatient follow up with her urologist at [facility]
Please call with further questions
Assessment / Plan
-
Urinary retention
- Unknown if retention is chronic or more acutely related to inflamed urethral mucosa from recent latex reaction
- Trial of void passed 08/20 with 1cc PVR
- Patient c/o some persistent weak stream and difficulty initiating. Discussed option to replace catheter as the safest choice while her urologic workup is pending. Patient decided to keep dean out unless voiding becomes more difficult.
Urethral bleeding
- No gross hematuria noted
- Bleeding is probably abrasion of exposed fragile urethral mucosa
- apparently an episode of bloody urine after dean removal 08/20 which quickly resolved to clear yellow on next void
Urethral prolapse/carcuncle
- Outpatient follow up to address further
Follow up with her urologist at [facility] for further workup
Please call with any further qustions
Diagnosis
-
Date of Service: August 21, 2023
-
Patient Diagnosis:
Urinary retention
Urethral inflammation/caruncle
Hematuria
Post Op Day:
Subjective
-
voiding after dean removal
Has to strain a bit to start her stream on some voids but empties completely with 1cc PVR
Comfortable and no pelvic pain
Objective
-
Vital Signs
Temp Pulse Resp BP Pulse Ox
98.2 F 87 16 106/71 97
08/21/23 11:50 08/21/23 11:50 08/21/23 11:50 08/21/23 11:50 08/21/23 11:50
Intake and Output
08/20/23 08/21/23 08/22/23
06:59 06:59 06:59
Intake Total 2039 1380 / 1380
Output Total 3075 / 3075 2725 / 2724
Balance -1035 / -1035 -1345 / -1345
Intake:
Oral fluids 2039 1380 / 1380
Output:
Urine, Dean 3074
Urine, Voided 2724
Laboratory Results
08/21/23 06:40
08/21/23 06:40
Physical Exam
-
General - well developed, well nourished, no acute distress
Abdomen - soft, non-tender
Skin - warm & dry
Neuro - AOx3
[2023-08-21] MEDS: VITAMIN D3 (cholecalciferol) 25 MCG PO (17:46)
[2023-08-21] MEDS: VITAMIN C 500 MG PO (17:46)
[2023-08-21] MEDS: CYMBALTA DELAYED RELEASE 60 MG PO (22:17)
[2023-08-21] MEDS: DALIRESP 500 MCG PO (22:21)
[2023-08-21] MEDS: NEURONTIN 300 MG PO (22:22)
[2023-08-21] MEDS: SINGULAIR 10 MG PO (22:23)
[2023-08-21] MEDS: XANAX 0.5 MG PO (22:28)
[2023-08-22] VITALS (12 sets, daily range): BP systolic 14–127; BP diastolic 45–72; PULSE 53–106; BMI 20.8
[2023-08-22] MEDS: FLOMAX 0.800000000000000044 MG PO (05:28)
[2023-08-22] MEDS: TESSALON PERLES 100 MG PO ×2 (05:30→23:23)
[2023-08-22] MEDS: MAXIPIME 2000 MG IV ×2 (05:37→17:39)
[2023-08-22] MEDS: STERILE WATER FOR INJECTION 10 ML IV ×2 (05:37→17:38)
[2023-08-22] MEDS: NEURONTIN 500 MG PO ×3 (06:08→20:56)
[2023-08-22] MEDS: SYNTHROID 125 MCG PO (06:09)
[2023-08-22] MEDS: CARDIZEM 30 MG PO ×2 (06:10→15:17)
[2023-08-22] MEDS: ProAmatine 7.5 MG PO (06:12)
[2023-08-22 08:08] LABS: % Basophils 0.4 % (0-2); % Eosinophils 0.2 % (0-6); % Immature Granulocytes 2.4 % (0-0.5); % Lymphocytes 46.9 % (20.5-51.1); % Monocytes 6.1 % (1.7-9.3); Absolute Basophils 0.1 10^3/uL (0-0.2); Absolute Immature Granulocytes 0.3 10^3/uL (0-0.05); Absolute Lymphocytes 5.7 10^3/uL (1.2-3.4); Absolute Monocytes 0.7 10^3/uL (0.1-0.6); Absolute Neutrophils 5.3 10^3/uL (1.4-6.5); Hematocrit 29.2 % (37.0-47.0); Mean Corp Hgb Conc. 34.2 g/dL (33.0-37.0); Mean Corpuscular Hgb 31.8 pg (27.0-31.0); Nucleated Red Blood Cells % 0 %; Platelet Count 266 10^3/uL (130-400); Red Blood Cell Count 3.14 10^6/uL (4.20-5.40); White Blood Cell Count 12.1 10^3/uL (4.8-10.8)
[2023-08-22] MEDS: NON-FORMULARY ITEM 1 UNIT INH ×2 (08:28→19:58)
[2023-08-22] MEDS: NON-FORMULARY ITEM 2 INH INH ×2 (08:28→19:55)
[2023-08-22] MEDS: XOPENEX 0.63 MG INHALANT SOLUTION 0.630000000000000004 MG INH ×2 (08:31→19:55)
[2023-08-22 08:53] LABS: ALT (SGPT) 19 U/L (0-35); AST (SGOT) 18 U/L (14-36); Albumin 2.6 g/dl (3.5-5.0); Alkaline Phosphatase 36 U/L (38-126); Blood Urea Nitrogen 17 mg/dl (7-17); Calcium 8.7 mg/dl (8.4-10.2); Carbon Dioxide 37 mmol/L (22-30); Chloride 101 mmol/L (98-107); Estimated Creatinine Clearance 74 ml/min; Glucose 81 mg/dl (70-99); Potassium 4.5 mmol/L (3.5-5.1); Sodium 134 mmol/L (135-145); Total Bilirubin 0.5 mg/dl (0.2-1.3); Total Protein 4.3 g/dl (6.3-8.2); eGFR > 60.00
--- NOTE | 2023-08-22 09:14 | W.PN.HOSP.TC ---
Addendum entered and electronically signed by Antonio Branham MD 08/23/23 11:18:
Concern for acute blood loss anemia with baseline normocytic anemia
Original Note:
Today's Communication/Plan
-
Bronch today
Likely discharge over the weekend after switch to oral antibiotics
See below for more
Assessment / Plan
Assessment / Plan
Physical Exam
General: Not in acute distress - coughing significantly improved
HEENT: Normocephalic, Atraumatic
Respiratory: Rhonchi Bilaterally
Cardiac: Regular Rhythm and S1/S2
GI: Soft, Nontender and Nondistended. Positive bowel sounds.
Musculoskeletal: No Clubbing, No Cyanosis and No Edema

CT Head without IV contrast as per radiologist's report:
'IMPRESSION:
No acute intracranial abnormality.'
CT Chest W/o Iv Contrast as per radiologist's report:
'IMPRESSION:
Left base consolidation and/or atelectasis, small amount of right base atelectasis with shift of the mediastinum toward the left. Limited exam without IV contrast.
No discrete mediastinal or hilar mass identified however repeat imaging with IV contrast after treatment is recommended to exclude an occult process.
Small bibasilar pleural effusions.
Small to moderate amount of pericardial effusion.'
Echocardiogram as per diesel engine fitter's report:
'CONCLUSIONS
Normal biventricular size and systolic function without regional wall motion
abnormality.
No significant valvular disease.
No prior study available for comparison.'

Assessment/Plan
Symptomatic Hypovolemic Hyponatremia related to over-diuresis. Feels weak, unable to walk, feels confused
- Hold metolazone
- One time dose Lasix 40 mg on 08/22/23
- On discharge: Prescribe the Lasix as PRN (40mg if patient gains 3+ lbs)
- Hold Celebrex
- Continue slow IVFs
- Na 122-->129-->129-->136-->...-->134
- Okay to continue Duloxetine
Acute Confusion/Encephalopathy - IMPROVING - Possibly Multifactorial Including due to Hyponatremia
Generalized Weakness Below Baseline
Left Lower Lobe Consolidation on CT Imaging
Left Lower Lobe Atelectasis
Suspected COPD Exacerbation
Cough, Rhonchi
-UA (urine culture with no growth), Influenza (negative), COVID (negative), Ammonia (low), Coagulation Studies (okay), Serum osmoles (okay), Blood cultures (no growth to date), TSH (low - but should recheck outpatient), Vitamin B12 (high)
-Cortisol (in the morning) was low at 1.3 -- patient is on prednisone so low cortisol level is expected when patient is on prednisone
-Follow AM CBC and CMP
-CT Head unremarkable
-Thiamine 100 mg PO daily
-Infectious Disease consulted, recommendations appreciated
-Cefepime started, continue
-Bronchoscopy performed on 08/22/23: follow bronchoalveolar lavage and cultures results
Small bibasilar pleural effusions
Small to moderate amount of pericardial effusion
-Cardiology consulted, recommendations appreciated
-Echocardiogram ordered, results are above
-On echo, pericardial effusion is trivial
Orthostatic Hypotension
Dizziness/Lightheadedness on Standing
-Midodrine doses increased for the morning and noon
-Abdominal Binder and TEDs while up and about
Bright red blood through vagina and rectal areas
Bright Red Blood Per Rectum on 08/21/23
-Monitor Hgb
-Consulted GI, recommendations appreciated: patient has never had a colonoscopy
-Patient will decide on whether she wants to have a flexible sigmoidoscopy while inpatient
-Consider OBGYN consult
Normocytic Anemia
-Check iron studies - follow-up on these
-Checked vitamin B12 as above: Vitamin B12 is high
Hypokalemia
-Maintain potassium greater than 4
Prerenal azotemia
-Monitor BMP
Chronic dean catheter, requires Flomax
Recent Urethral Bleeding from a Urinary Catheter
Uretheral Prolapse
Bladder Spasms
Reported urinary clots
-Consulted urologist, recommendations appreciated
-Estrogen cream would be something to consider if urethral prolapse doesn�t improve on its own, however patient requested to start it now
-Therefore, ordered: Estrace cream - pea sized amount inside vagina once daily for a week, then three times per week
Severe COPD
Prior history of severe persistent asthma
Chronic Hypoxic Respiratory Failure
Acute on chronic SOB due to recent episodes of strep PNA followed by COVID with deconditioning and CHF
-Recent admissions for Strep pneumonia and COVID
-Patient alternates 6 weeks coarse of doxycycline and Ceftin - Currently on doxycycline
-Continue prednisone as prior to admission, currently tapering down 10mg every 5 days to baseline 5mg
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
-Will need to discuss with pulmonary tapering regimen given her condition
-Continue Daliresp
-Continue fluticasone and salmeterol
-Continue levalbuterol prn
-Consulted pulmonary due to increased rhonchi and per patient's and patient's daughter's request
Paroxysmal Atrial Fibrillation s/p Ablation
-Patient is not on anticoagulation as outpatient
-Continue diltiazem
-Patient stated she goes to Dr. Thomas and [facility] cardiology -- discussed on 08/19/23 with cardiology, cardiology said okay for patient to follow-up outpatient
-Patient requested cardiology consultation while inpatient
Sacrum Healing Stage 3 pressure injury, POA
-Continue wound care
Anxiety/Depression
Continue Duloxetine and alprazolam
Hypothyroidism
-Continue levothyroxine
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
-Continue gabapentin and duloxetine
-Patient is currently on the maximum dose of Gabapentin (the dose she is on now is only 300mg less per day total) for her creatinine clearance - once patient's CrCl gets to 80 ml/min she can get her home dose
-Appreciate clinical pharmacist input into Gabapentin dosing
Environment/Seasonal Allergies
-Continue fexofenadine and montelukast
History of Monoclonal B-Cell Lymphocytosis
History of Steroid-Induced Myopathy
DVT proph: Lovenox
Code Status: DNR/DNI
August 19, 2023: I spoke over the phone with patient's daughter Jerrica and, in the patient's room with another one of patient's daughters while seeing patient. All questions and concerns were answered/addressed.
August 22, 2023: I spoke over the phone with patient's daughter Jerrica and updated her. All questions and concerns were answered/addressed.
Anticipated Discharge: 24 - 48 hours
Subjective/Interval History
-
Date of Service: August 22, 2023
Patient was seen and examined. She was up and ambulating. She is doing better, less cough, now can find bigger words, less confused. She would like estrogen cream for her genitourinary symptoms and would also like Lasix.
Objective Data
-
Labs:
Laboratory Results
08/22/23
07:16
WBC 12.1 H
Hgb 10.0 L
Hct 29.2 L
Plt Count 266
Sodium 134 L
Potassium 4.5
Chloride 101
Carbon Dioxide 37 H
BUN 17
Creatinine 0.6
Glucose 81
Calcium 8.7
Total Bilirubin 0.5
AST 18
ALT 19
Alkaline Phosphatase 36 L
Vital Signs:
Vital Signs
Temp Pulse Resp BP Pulse Ox
98.2 F 71 16 123/71 97
08/22/23 03:22 08/22/23 06:12 08/22/23 08:34 08/22/23 06:12 08/22/23 08:34
I&O
08/21/23 08/22/23 08/23/23
06:59 06:59 06:59
Intake Total 1380 / 1380 1020 / 1020
Output Total 2725 / 2725
Balance -1345 / -1345 1020 / 1020
--- NOTE | 2023-08-22 09:55 | W.PN.PUL3 ---
Addendum entered and electronically signed by Leanne Flores DO 08/22/23 10:00:
Updated daughter on the phone by patient request.
Original Note:
Today's Communication / Plan
-
Ongoing symptoms, unchanged
Bronch scheduled this AM, NPO after midnight
Please see procedure report to follow
Assessment
-
Patient is a 72 year old F with PMH significant for PAF, severe persistent asthma, hypothyroidism admitted 08/16/23 for abnormal sodium (Na =122).� Patient was admitted here Jun - July for Strep pneumonia.� She was discharged to [facility]' rehab
and then admitted to [facility] with COVID.� Patient states that she then began to develop increased edema/fluid retention in the legs.� She was started on a diuretic regimen consisting of BID Lasix and daily metolazone. In the past 12 hours, she notes
worsening cough/SOB. Per daughter who provides history on the phone, this was a change that they witnessed since she's been admitted. They have requested pulmonary evaluation 08/19/23.
Symptomatic hypovolemic hyponatremia likely 2/2 over-diuresis
Acute Confusion/Encephalopathy related to above
Generalized weakness
Chronic cough, nonproductive
Acute on chronic SOB
Urinary retention s/p Alicia
Severe persistent asthma requiring biologic therapy now with acute exacerbation
LLL consolidation
Conditions REPORTING COORDINATOR:
Adm Jul 2023 for Strep PNA with AE asthma
Adm November 2022: acute hypoxemic respiratory failure, CAP LLL infiltrate, markedly ^PCT, asthma exacerbation. Completed 5d cefepime
Severe asthma, on daliresp, fluticasone, montelukast, salmeterol
Follows up at [facility] and [facility]
Monoclonal B-cell lymphocytosis
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
AFib s/p ablation
Hypothyroidism
Hysterectomy
R hip replacement
Cataract surgery
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
Seasonal allergies
Intermittent epistaxis, historically L>>>R
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
Allergy to azithromycin
DNR
Plan
Has not demonstrated clear hypoxemia, placed on 2L NC from rehab
No prior history of O2 use at home
She has prior history of severe persistent asthma, being managed by Dr Neely.
She was recently on a prednisone taper, continued at 30mg daily. She does feel better with oral steroid dosing.
Recent spirometry as outpatient demonstrating poor effort/cough throughout, but FEV1 1.63L 73%.
Suspect patient has acute on chronic SOB due to recent episodes of strep PNA followed by COVID with deconditioning and CHF
CXR 08/19/23 showing L basilar atelectasis but not significantly changed from prior, never had chest CT.
We will obtain repeat PFT/6MWT to compare to prior done as OP if there is a change
Repeat PFT showing decline but still within moderate range
6MWT pending
Other imaging reviewed, CT Chest obtained showing LLL consolidation, there is small-mod pericardial effusion
We discussed role of bronchoscopy and evaluation, she is agreeable
We will arrange, NPO after MN
ECHO results in past reviewed--stable function
Repeat ECHO given CT results
proBNP--none obtained
Careful resumption of diuresis per team
Urinary retention issues noted
Will need outpatient pulmonary evaluation in our office for PFTs and 6MWT
Reviewed with patient
Deconditioning is a factor likely as well
Will be beneficial to complete her rehab program when amenable
Diagnostic Data
CXR 08/19/23- LLL atelectasis
CXR 07/10/23- IMPRESSION: There is consolidation in the left lower lobe consistent with improving pneumonia along with a left pleural effusion. There is probable atelectasis in the right lower lobe.
CXR 07-05-23: Progressed findings suggesting mild left lower lobe pneumonia; New moderate right lower lobe probable atelectasis; Mild cardiomegaly. Stable
CXR 07-03-23 c/w November 15 and . Baseline films with improved LLL infiltrate but persistently blurred L diaphragm. Current films without gross infiltrates but suspicious for positive spine sign at L base
CT Chest 08/20/23: Left base consolidation and/or atelectasis, small amount of right base atelectasis with shift of the mediastinum toward the left. No discrete mediastinal or hilar mass identified however repeat imaging with IV contrast after
treatment is recommended to exclude an occult process. Small bibasilar pleural effusions. Small to moderate amount of pericardial effusion.
Spirometry 08/20/22: FEV1 1.21L 54%, FVC 1.46L 49%, ratio 83. Post FEV1 1.27L 57% no BD response. (mixed pattern, moderately reduced, decreased from prior testing but remains in moderate category)
PFT:
Spirometry 05/23/2023: FEV1/FVC 82%, FEV1 1.63 L-73%, FVC 1.97 L, 66%.� No airflow obstruction.� Patient has difficulty with the maneuvers due to coughing.
Crow 12/17/22: unable.
6 MWT:
6MWT 12/17/22: At rest, O2 99% on room air, heart rate 82. With ambulation, O2 remained at 99 to 100% on room air, max heart rate 90. 5/10 on dyspnea scale. Only able to ambulate 150 feet
ECHO 07/08/23- �LV ejection fraction is 60-65%, by visual assessment. No regional wall motion�abnormalities are seen.�Normal right ventricular size and function.�No significant valvular disease.�No prior study available for comparison.
Subjective Data
-
Date of Service:
Date of Service: August 22, 2023
Chief Complaint: Pulmonary Follow Up
Subjective:
patient seen, no acute events on
bronch scheduled this am
Objective Data
Data Reviewed
Vital Signs / I&O / Oxygen:
Vital Signs
Temp Pulse Resp BP Pulse Ox
97.9 F 79 16 114/69 97
08/22/23 07:00 08/22/23 07:00 08/22/23 08:34 08/22/23 07:00 08/22/23 08:34
Intake and Output
08/21/23 08/22/23 08/23/23
06:59 06:59 06:59
Intake Total 1380 / 1380 1020 / 1020
Output Total 2725 / 2725
Balance -1345 / -1345 1020 / 1020
SaO2 97
Nasal Cannula flow liters per 4
minute
Physical Exam
General: Comfortable and Other (NAD, conditioned)
HEENT: Normocephalic, Anicteric and Moist Mucous Membranes
Cardiovascular: S1-S2 and Regular Rhythm
Respiratory: Rhonchi (w/ cough) and Non-Labored Respirations
GI: Soft, Non Distended and Non Tender
Neurology: Awake, Alert, Oriented, AO x 3 and No Motor Deficits
Skin: Warm, Dry and Good Color
Labs/Micro/Reports
Lab Data
08/22/23 07:16
08/22/23 07:16
Microbiology
08/19/23 16:02 Blood/Venous Blood Culture - Preliminary
No Growth in 48 hours- Final report to follow
08/21/23 11:11 Sputum Gram Stain - Preliminary
08/19/23 13:02 Blood/Venous Blood Culture - Preliminary
No Growth in 48 hours- Final report to follow
08/20/23 20:54 Sputum Respiratory Culture - Final
08/20/23 20:54 Sputum Gram Stain - Final
08/19/23 12:40 Urine Urine Culture - Final
NO GROWTH
08/19/23 12:39 Nasal Swab Influenza Types A & B (DIEGO) - Final
Negative for Influenza A & B, NAAT
Negative results must be combined with clinical observations
and patient history.
Nucleic Acid Amplification test (NAAT)performed on the
[employer] platform.
[2023-08-22] MEDS: VITAMIN B1 100 MG PO (11:41)
[2023-08-22] MEDS: CYMBALTA DELAYED RELEASE 30 MG PO (11:41)
[2023-08-22] MEDS: KCL 20 MEQ PO (11:41)
[2023-08-22] MEDS: VITAMIN B-12 500 MCG PO (11:42)
[2023-08-22] MEDS: Pyridium 100 MG PO ×3 (11:42→20:48)
[2023-08-22] MEDS: DELTASONE 30 MG PO (11:42)
[2023-08-22] MEDS: LASIX 40 MG PO (11:43)
[2023-08-22] MEDS: NON-FORMULARY ITEM 1 UNIT PO (11:43)
[2023-08-22] MEDS: NON-FORMULARY ITEM 1 SPRAY NASAL (11:44)
[2023-08-22] MEDS: NON-FORMULARY ITEM 2 SPRAY NASAL ×2 (11:44→20:43)
[2023-08-22] MEDS: MIRALAX 17 GRAMS PO (12:02)
--- NOTE | 2023-08-22 12:16 | W.PN.GI.CBS2 ---
Addendum entered and electronically signed by Leeanna Allison MD 08/22/23 16:23:
I saw and examined the patient.
The [employer] M[employer] TENDER or PA's note was reviewed and I agree with the note.
Comment: 72 yo F pmh as below here with recurrent PNA s/p [facility] today. GI consult for rectal bleeding. She previously had constipation which has resolved with bowel regimen. Patient never had cscope.
I did rectal today, large external hemorrhoids she does have some pinpoint pain so could also have an anal fissure.
I did discuss with her without a colonoscopy would not be able to rule out something more concerning including malignancy which can present with bright red bleed as well. Differential can also include polyp, less likely AVM, does not seem to be
diverticular.
With her active PNA, would not be ideal to do anesthesia at this time.
Patient is unsure if she would like to have a cscope I did discuss with her importance of procedure. She said she would think about it.
I gave her appt in 2 weeks for close follow up with us 09/01 at 8am with Trinh PERRY to allow her time for her pulmonary status to improve and give her time to decide how she would like to proceed. At this follow up will also discuss risks of
cscope, today I focused on the benefit of doing the procedure.
I have reached out to pharmacy regarding a cream for possible anal fissure - if we do not have it in hospital, can discharge with nifedipine/lido or rectiv.
GI will sign off. Please call with questions.
Original Note:
Today's Communication / Plan
-
Assessment / Plan
-
72-year-old female with past medical history of monoclonal B-cell lymphocytosis, hypothyroidism, right foot neuropathy, gait dysfunction, palpitations, asthma/COPD, immunoglobulin deficiency intolerant to IVIG, recent admission to [facility] for strep pneumonia bacteremia secondary to left basilar community-acquired pneumonia, recently on's IV steroids transition to oral steroids, also with episode of SVT during that hospitalization when on steroids started on diltiazem she was
at [facility] from 07/03/2023 to 07/14/2023. She was discharged to [facility] rehab. She was there for 1 week and then subsequently got COVID and was admitted to [facility] for 1 week and then transferred back to
[facility] rehab. She was home for 1 week and then started feeling short of breath with intermittent coughing without sputum production. She started having lower extremity edema and was started on Lasix 40 mg twice a day as well as
metolazone 2.5 mg daily. She was found to have hyponatremia on outside lab work, slight confusion and was sent to the emergency room for further evaluation on 08/16/2023. Patient also found to have a left lower lobe consolidation. Going to have
bronchoscopy tomorrow for further workup. Also being seen by infectious disease. We are asked to evaluate for bright red blood per rectum that started on 08/20/2023. Patient also having vaginal bleeding as well. Hemoglobin remains stable. She
states that she has had episodes of bright red blood per rectum with some clots. She also feels as if there is something within her rectum as well. She has been having soft formed daily bowel movements. She had to be started on MiraLAX while at
[facility]. She was also recently started on diltiazem while at [facility] for SVT. Rectal exam attempted on patient however was extremely limited and unsuccessful beyond 2 cm due to patient discomfort. Patient had large
external hemorrhoids that were nonbleeding. Patient has never had a colonoscopy before. Patient having vaginal bleeding which she attributes to misplacement of Alicia catheter.
Impression:
Rectal bleeding
Recent change in bowel habits
Left lower lobe pneumonia
Hypoxemia
Monoclonal B-cell lymphocytosis
Paroxysmal A-fib not on anticoagulation
Hypothyroidism
Plan:
-s/p bronchoscopy today
-Hgb 10.0
-Patient was originally agreeable to have flexible sigmoidoscopy, but now questioning if she wants to proceed with this or not - she will discuss further with Dr. Allison
-Discussed with patient that we would recommend full colonoscopy - possibly outpatient - as she has never had one
-will continue to trend hemoglobin to ensure stability
-Antibiotics per pulmonary/internal medicine/infectious disease
Subjective
Subjective
Date of Service: August 22, 2023
No rectal bleeding last evening or today.
No abdominal pain, nausea, vomiting, diarrhea or constipation
s/p bronchoscopy today
Objective
Data Reviewed
Laboratory Data:
Laboratory Results
08/22/23 07:16
08/22/23 07:16
Laboratory Results
PT 12.6 Sec (11.4-14.6) 08/19/23 13:02
INR 0.96 08/19/23 13:02
APTT 22.9 Sec (23.4-35.0) L 08/19/23 13:02
Phosphorus 2.7 mg/dl (2.5-4.5) 08/21/23 06:40
Magnesium 2.0 mg/dl (1.6-2.3) 08/21/23 06:40
Total Bilirubin 0.5 mg/dl (0.2-1.3) 08/22/23 07:16
AST 18 U/L (14-36) 08/22/23 07:16
ALT 19 U/L (0-35) 08/22/23 07:16
Alkaline Phosphatase 36 U/L (38-126) L 08/22/23 07:16
Lipase 318 U/L (23-300) H 08/16/23 19:17
Vital Signs and I&O:
Vital Signs
Temp Pulse Resp BP Pulse Ox
99 F 89 13 106/61 96
08/22/23 09:46 08/22/23 11:51 08/22/23 10:00 08/22/23 11:51 08/22/23 10:00
I&O
08/21/23 08/22/23 08/23/23
06:59 06:59 06:59
Intake Total 1380 / 1380 1020 / 1020
Output Total 2725 / 2725
Balance -1345 / -1345 1020 / 1020
Physical Exam
Physical Exam
Cardiology: Normal Sinus Rhythm
Pulmonary: Clear
GI: Soft, Non Distended, Non Tender and Normal Bowel Sounds
--- NOTE | 2023-08-22 14:53 | PN.CDI ---
CDI
- -
CDI:
Physician Documentation Request
Admit Date: 08/16/23 22:18
Dear Doctor Yonas,
Clinical Indicators:
Patient admitted with hyponatremia.
PMH includes normocytic anemia
08/21 PN, 'Bright red blood through vagina and rectal areas Bright Red Blood Per Rectum on 08/21/23.'
Hgb/Hct trend:
08/16/23 08/19/23 08/22/23
19:17 06:40 07:16
Hgb 13.1 10.7 L 10.0 L
Hct 35.4 L 31.6 L 29.2 L
Based on the above, could you clarify, in your progress note, which of the following is the most likely type of anemia you are evaluating, monitoring and/or treating?
Acute blood loss anemia with baseline normocytic anemia
Normocytic anemia only
Other, please specify
Use of terms such as suspected, likely, concern for, or probable (associated with a specific diagnosis that is being evaluated, monitored, or treated as if it exists) are acceptable and can be coded in the inpatient setting, when documented at the
time of discharge.
Thank you,
BERNARD Conner RN
CDI Specialist
available via tiger text
Please use your independent medical judgment in providing your response.
[2023-08-22] MEDS: ProAmatine 5 MG PO (15:17)
--- NOTE | 2023-08-22 15:46 | W.PN.ID1 ---
Date of Service
Date of Service: August 22, 2023
Today's Communication
Continue antibiotics.
Assessment / Plan
Left lower lobe pneumonia
Hypoxemia
Suspected exacerbation of COPD
Monoclonal B-cell lymphocytosis
P A-fib
Hypothyroidism
Gait dysfunction
Hx Steroid-induced myopathy
Recommendations:
Continue with cefepime 2 g IV every 12 hours.
S/P bronch; await further culture data
Follow white count and temperature curve.
����������������������������������������������������������
Chief Complaint
-: Pneumonia
Subjective / Review of Systems
Review of Systems: No Fever and No Chills
Vital Signs / Physical Exam
Vital Signs
Vital Signs
Temp Pulse Resp BP Pulse Ox
99 F 86 13 104/61 96
08/22/23 09:46 08/22/23 15:17 08/22/23 10:00 08/22/23 15:17 08/22/23 10:00
Physical Exam
Constitutional: No Acute Distress, Comfortable, Chronically Ill and Non-toxic
Eyes: No Conjunctival Hemorrhage and Sclera Anicteric
Pulmonary: Non Labored
Gastrointestinal: Non Distended
Neurological: Awake and Alert
Psychological: Calm
Objective Data
Lab Data
Lab Results
08/22/23 07:16
08/22/23 07:16
PT 12.6 Sec (11.4-14.6) 08/19/23 13:02
INR 0.96 08/19/23 13:02
APTT 22.9 Sec (23.4-35.0) L 08/19/23 13:02
Estimated Creat Clear 74 ml/min 08/22/23 07:16
Lactic Acid 1.9 mmol/L (0.7-2.0) 08/16/23 19:17
Total Bilirubin 0.5 mg/dl (0.2-1.3) 08/22/23 07:16
AST 18 U/L (14-36) 08/22/23 07:16
ALT 19 U/L (0-35) 08/22/23 07:16
Alkaline Phosphatase 36 U/L (38-126) L 08/22/23 07:16
Most recent labs reviewed.
Micro Results:
08/19/23 13:02 Blood Culture - Preliminary
Blood/Venous No Growth in 72 hours- Final report to follow
08/22/23 09:56 Respiratory Culture - Pending
Bronch Left Lower Lobe Gram Stain - Preliminary
08/22/23 09:56 Respiratory Culture - Pending
Bronch Left Upper Lobe Gram Stain - Preliminary
08/21/23 11:11 Respiratory Culture - Preliminary
Sputum Usual Respiratory Kayla
Gram Stain - Preliminary
08/22/23 09:56 Fungal Culture - Preliminary
Bronch Left Lower Lobe Culture negative for fungus.
08/22/23 09:56 Fungal Culture - Preliminary
Bronch Left Upper Lobe Culture in progress.
Positive cultures are reported as soon as detected.
Final report to follow in four to five weeks.
08/22/23 09:56 Acid Fast Bacilli Smear - Pending
Bronch Left Upper Lobe Acid Fast Bacilli Culture - Pending
08/22/23 09:56 Acid Fast Bacilli Smear - Pending
Bronch Left Lower Lobe Acid Fast Bacilli Culture - Pending
08/19/23 16:02 Blood Culture - Preliminary
Blood/Venous No Growth in 48 hours- Final report to follow
08/20/23 20:54 Respiratory Culture - Final
Sputum Gram Stain - Final
08/19/23 12:40 Urine Culture - Final
Urine NO GROWTH
08/19/23 12:39 Influenza Types A & B (DIEGO) - Final
Nasal Swab Negative for Influenza A & B, NAAT
Negative results must be combined with clinical observations
and patient history.
Nucleic Acid Amplification test (NAAT)performed on the
[employer] platform.
08/16/23 20:05 Urine Culture - Final
Urine NO GROWTH
--- NOTE | 2023-08-22 16:35 | PTCARENOTE ---
Patient refusing ABD binder. Patient also refusing hospital issued TERRI stockings, but is agreeable with wearing support hose from home. Support hose applied.
--- NOTE | 2023-08-22 16:37 | CM ---
Patient seen bedside.
Per patient she will be here thru the weekend.
Per patient SMR will not take back.
Requested referral to [place] re[facility]. referral placed.
If not accepted at [place] will consider skilled rehab at [facility]. referral placed.
Plan: acute vs skilled rehab when medically cleared and bed available.
[2023-08-22] MEDS: VITAMIN C 500 MG PO (17:37)
[2023-08-22] MEDS: CYMBALTA DELAYED RELEASE 60 MG PO (20:43)
[2023-08-22] MEDS: CARDIZEM PO (20:44)
[2023-08-22] MEDS: NEURONTIN 300 MG PO (20:45)
[2023-08-22] MEDS: DALIRESP 500 MCG PO (20:46)
[2023-08-22] MEDS: COMPOUND MEDICATION TOPICAL (20:49)
[2023-08-22] MEDS: SINGULAIR 10 MG PO (20:50)
[2023-08-22] MEDS: ESTRACE 0.01% VAGINAL CREAM VAG (21:00)
[2023-08-22] MEDS: XANAX 0.5 MG PO (23:23)
[2023-08-22] MEDS: TYLENOL 650 MG PO (23:23)
[2023-08-23 03:33] VITALS: BP 113/69
[2023-08-23] MEDS: ESTRACE 0.01% VAGINAL CREAM VAG ×2 (04:48→22:25)
[2023-08-23] MEDS: CARDIZEM 30 MG PO ×3 (05:26→22:23)
[2023-08-23] MEDS: TESSALON PERLES 100 MG PO ×2 (05:27→23:58)
[2023-08-23] MEDS: STERILE WATER FOR INJECTION 10 ML IV ×2 (05:27→19:25)
[2023-08-23] MEDS: MAXIPIME 2000 MG IV ×2 (05:27→19:25)
[2023-08-23] MEDS: TYLENOL 650 MG PO ×2 (05:27→23:58)
[2023-08-23] MEDS: ProAmatine 7.5 MG PO ×2 (05:28→13:51)
[2023-08-23] MEDS: FLUSH (NSS) 1 FLUSH IV (05:30)
[2023-08-23] MEDS: NEURONTIN 500 MG PO ×3 (05:43→22:32)
[2023-08-23] MEDS: FLOMAX 0.800000000000000044 MG PO (05:43)
[2023-08-23 06:00] VITALS: BMI 21.0
[2023-08-23 07:05] VITALS: BP 127/77
--- NOTE | 2023-08-23 07:07 | W.PN.HOSP.TC ---
Assessment / Plan
Assessment / Plan
Physical Exam
General: Not in acute distress - coughing significantly improved
HEENT: Normocephalic, Atraumatic
Respiratory: Rhonchi Bilaterally
Cardiac: Regular Rhythm and S1/S2
GI: Soft, Nontender and Nondistended. Positive bowel sounds.
Musculoskeletal: No Clubbing, No Cyanosis and No Edema

CT Head without IV contrast as per radiologist's report:
'IMPRESSION:
No acute intracranial abnormality.'
CT Chest W/o Iv Contrast as per radiologist's report:
'IMPRESSION:
Left base consolidation and/or atelectasis, small amount of right base atelectasis with shift of the mediastinum toward the left. Limited exam without IV contrast.
No discrete mediastinal or hilar mass identified however repeat imaging with IV contrast after treatment is recommended to exclude an occult process.
Small bibasilar pleural effusions.
Small to moderate amount of pericardial effusion.'
Echocardiogram as per seaman's report:
'CONCLUSIONS
Normal biventricular size and systolic function without regional wall motion
abnormality.
No significant valvular disease.
No prior study available for comparison.'

Assessment/Plan
Symptomatic Hypovolemic Hyponatremia related to over-diuresis. Feels weak, unable to walk, feels confused
- Hold metolazone
- One time dose Lasix 40 mg on 08/22/23
- On discharge: Prescribe the Lasix as PRN (40mg if patient gains 3+ lbs)
- Hold Celebrex
- Continue slow IVFs
- Na 122-->129-->129-->136-->...-->134
- Okay to continue Duloxetine
Acute Confusion/Encephalopathy - IMPROVING - Possibly Multifactorial Including due to Hyponatremia
Generalized Weakness Below Baseline
Left Lower Lobe Consolidation on CT Imaging
Left Lower Lobe Atelectasis
Suspected COPD Exacerbation
Cough, Rhonchi
-UA (urine culture with no growth), Influenza (negative), COVID (negative), Ammonia (low), Coagulation Studies (okay), Serum osmoles (okay), Blood cultures (no growth to date), TSH (low - but should recheck outpatient), Vitamin B12 (high)
-Cortisol (in the morning) was low at 1.3 -- patient is on prednisone so low cortisol level is expected when patient is on prednisone
-Follow AM CBC and CMP
-CT Head unremarkable
-Thiamine 100 mg PO daily
-Infectious Disease consulted, recommendations appreciated
-Cefepime started, continue
-Bronchoscopy performed on 08/22/23: follow bronchoalveolar lavage and cultures results
Small bibasilar pleural effusions
Small to moderate amount of pericardial effusion
-Cardiology consulted, recommendations appreciated
-Echocardiogram ordered, results are above
-On echo, pericardial effusion is trivial
Orthostatic Hypotension
Dizziness/Lightheadedness on Standing
-Midodrine doses increased for the morning and noon 10 mg AM 7.5 mg QPM, holding parameters SBP>140
-Abdominal Binder and TEDs while up and about
Bright red blood through vagina and rectal areas
Bright Red Blood Per Rectum on 08/21/23
-Monitor Hgb
-Consulted GI, recommendations appreciated: patient has never had a colonoscopy
-Patient will decide on whether she wants to have a flexible sigmoidoscopy while inpatient
-Consider OBGYN consult
Normocytic Anemia
-Check iron studies - follow-up on these
-Checked vitamin B12 as above: Vitamin B12 is high
Hypokalemia
-Maintain potassium greater than 4
Prerenal azotemia
-Monitor BMP
Chronic dean catheter, requires Flomax
Recent Urethral Bleeding from a Urinary Catheter
Uretheral Prolapse
Bladder Spasms
Reported urinary clots
-Consulted urologist, recommendations appreciated
-Estrogen cream would be something to consider if urethral prolapse doesn�t improve on its own, however patient requested to start it now
-Therefore, ordered: Estrace cream - pea sized amount inside vagina once daily for a week, then three times per week
Severe COPD
Prior history of severe persistent asthma
Chronic Hypoxic Respiratory Failure
Acute on chronic SOB due to recent episodes of strep PNA followed by COVID with deconditioning and CHF
-Recent admissions for Strep pneumonia and COVID
-Patient alternates 6 weeks coarse of doxycycline and Ceftin - Currently on doxycycline
-Continue prednisone as prior to admission, currently tapering down 10mg every 5 days to baseline 5mg
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
-tapered from 30 mg to 20 mg starting 08/24
-Continue Daliresp
-Continue fluticasone and salmeterol
-Continue levalbuterol prn
-Consulted pulmonary due to increased rhonchi and per patient's and patient's daughter's request
Paroxysmal Atrial Fibrillation s/p Ablation
-Patient is not on anticoagulation as outpatient
-Continue diltiazem
-Patient stated she goes to [facility] cardiology -- discussed on 08/19/23 with cardiology, cardiology said okay for patient to follow-up outpatient
-Patient requested cardiology consultation while inpatient
Sacrum Healing Stage 3 pressure injury, POA
-Continue wound care
Anxiety/Depression
Continue Duloxetine and alprazolam
Hypothyroidism
-Continue levothyroxine
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
-Continue gabapentin and duloxetine
-Patient is currently on the maximum dose of Gabapentin (the dose she is on now is only 300mg less per day total) for her creatinine clearance - once patient's CrCl gets to 80 ml/min she can get her home dose
-Appreciate clinical pharmacist input into Gabapentin dosing
Environment/Seasonal Allergies
-Continue fexofenadine and montelukast
History of Monoclonal B-Cell Lymphocytosis
History of Steroid-Induced Myopathy
PT/OT appreciated acute rehab
DVT proph: (Previously Lovenox discontinued due to Bleeding as above) TERRI stockings, SCD ordered
GI ppx: protonix
Code Status: DNR/DNI
August 19, 2023: I spoke over the phone with patient's daughter Jerrica and, in the patient's room with another one of patient's daughters while seeing patient. All questions and concerns were answered/addressed.
August 22, 2023: I spoke over the phone with patient's daughter Jerrica and updated her. All questions and concerns were answered/addressed.
Subjective/Interval History
-
Date of Service: August 23, 2023
Objective Data
-
Labs:
Laboratory Results
08/23/23
06:36
WBC Pending
Hgb Pending
Hct Pending
Plt Count Pending
Sodium Pending
Potassium Pending
Chloride Pending
Carbon Dioxide Pending
BUN Pending
Creatinine Pending
Glucose Pending
Calcium Pending
Total Bilirubin Pending
AST Pending
ALT Pending
Alkaline Phosphatase Pending
Vital Signs:
Vital Signs
Temp Pulse Resp BP Pulse Ox
98.1 F 74 16 113/69 94
08/23/23 03:33 08/23/23 05:28 08/23/23 03:33 08/23/23 05:28 08/23/23 03:33
I&O
08/22/23 08/23/23 08/24/23
06:59 06:59 06:59
Intake Total 1020 / 1020 1680 / 1680
Balance 1020 / 1020 1680 / 1680
[2023-08-23 07:54] LABS: Hematocrit 28.4 % (37.0-47.0); Hemoglobin 9.5 g/dL (12.0-16.0); Mean Corp Hgb Conc. 33.5 g/dL (33.0-37.0); Mean Corpuscular Hgb 31.8 pg (27.0-31.0); Mean Platelet Volume 9.2 fL (7.4-10.4); Platelet Count 261 10^3/uL (130-400); Red Blood Cell Count 2.99 10^6/uL (4.20-5.40); Red Cell Dist. Width 14.1 % (11.5-14.5); White Blood Cell Count 13.6 10^3/uL (4.8-10.8)
[2023-08-23 08:13] LABS: ALT (SGPT) 19 U/L (0-35); AST (SGOT) 18 U/L (14-36); Albumin 2.5 g/dl (3.5-5.0); Alkaline Phosphatase 33 U/L (38-126); Blood Urea Nitrogen 15 mg/dl (7-17); Calcium 8.6 mg/dl (8.4-10.2); Carbon Dioxide 35 mmol/L (22-30); Chloride 98 mmol/L (98-107); Estimated Creatinine Clearance 74 ml/min; Glucose 82 mg/dl (70-99); Iron 83 ug/dl (37-170); Potassium 3.8 mmol/L (3.5-5.1); Sodium 137 mmol/L (135-145); Total Bilirubin 0.6 mg/dl (0.2-1.3); Total Protein 4.2 g/dl (6.3-8.2); eGFR > 60.00
[2023-08-23 08:25] LABS: Percent Saturation 46 % (20-50); Total Iron Binding Capacity 180 ug/dl (265-497)
[2023-08-23] MEDS: NON-FORMULARY ITEM 1 UNIT INH ×2 (08:43→20:27)
[2023-08-23] MEDS: NON-FORMULARY ITEM 2 INH INH ×2 (08:44→20:26)
[2023-08-23] MEDS: XOPENEX 0.63 MG INHALANT SOLUTION 0.630000000000000004 MG INH ×3 (08:44→20:26)
--- NOTE | 2023-08-23 08:46 | W.PN.HOSP.TC ---
Today's Communication/Plan
-
Monitor H&H
cont midodrine
monitor orthostatic vitals
lasix resumed at reduced dose 40 mg daily
taper steroid
cont nebulizer treatments
Assessment / Plan
Assessment / Plan
Physical Exam
General: Not in acute distress -
HEENT: Normocephalic, Atraumatic
Respiratory: mild wheezing
Cardiac: Regular Rhythm and S1/S2
GI: Soft, Nontender and Nondistended. Positive bowel sounds.
Musculoskeletal: No Clubbing, No Cyanosis and No Edema

CT Head without IV contrast appreciated No acute intracranial abnormality
CT Chest W/o Iv Contrast appreciated Left base consolidation and/or atelectasis, small amount of right base atelectasis with shift of the mediastinum toward the left. Limited exam without IV contrast. No discrete mediastinal or hilar mass
identified however repeat imaging with IV contrast after treatment was recommended to exclude an occult process. Small bibasilar pleural effusions. Small to moderate amount of pericardial effusion
ECHO appreciated
Normal biventricular size and systolic function without regional wall motion
abnormality.
No significant valvular disease.
No prior study available for comparison
Assessment/Plan
Symptomatic Hypovolemic Hyponatremia related to over-diuresis. Feels weak, unable to walk, feels confused
- Hold metolazone
- Resumed Lasix 40 mg 08/22/23 daily as opposed to BID as was her home regimen prior
- On discharge: Prescribe the Lasix as PRN (40mg if patient gains 3+ lbs)
- Hold Celebrex
- Continue slow IVFs
- Na 122-->129-->129-->136-->...-->134
- Okay to continue Duloxetine
Acute Confusion/Encephalopathy - IMPROVING - Possibly Multifactorial Including due to Hyponatremia
Generalized Weakness Below Baseline
Left Lower Lobe Consolidation on CT Imaging
Left Lower Lobe Atelectasis
Suspected COPD Exacerbation
Cough, Rhonchi
-UA (urine culture with no growth), Influenza (negative), COVID (negative), Ammonia (low), Coagulation Studies (okay), Serum osmoles (okay), Blood cultures (no growth to date), TSH (low - but should recheck outpatient), Vitamin B12 (high)
-Cortisol (in the morning) was low at 1.3 -- patient is on prednisone so low cortisol level is expected when patient is on prednisone
-Follow AM CBC and CMP
-CT Head unremarkable
-Thiamine 100 mg PO daily
Small bibasilar pleural effusions
Small to moderate amount of pericardial effusion
-Cardiology consulted, recommendations appreciated
-Echocardiogram ordered, results are above
-On echo, pericardial effusion is trivial
Orthostatic Hypotension
Dizziness/Lightheadedness on Standing
-Midodrine doses increased for the morning and noon 10 mg AM 7.5 mg QPM, holding parameters SBP>140
-Abdominal Binder and TEDs while up and about
Bright red blood through vagina and rectal areas
Bright Red Blood Per Rectum on 08/21/23
-Monitor Hgb
-Consulted GI, recommendations appreciated: patient has never had a colonoscopy, tentatively scheduled for Friday
-outpatient OBGYN follow up
Normocytic Anemia
Anemia of Chronic Disease
-Iron Studies appreciated AOCD with Iron level wnl
-Vit B12 non-deficient
Hypokalemia resolved at this time
-monitor and replete as necessary
Chronic dean catheter, requires Flomax
Recent Urethral Bleeding from a Urinary Catheter
Uretheral Prolapse
Bladder Spasms
Reported urinary clots
-Urology consult appreciated, cont outpt follow up with her urologist at [facility]
-Suspected atrophic vaginitis, Estrace cream started, continue
Severe COPD
Prior history of severe persistent asthma
Chronic Hypoxic Respiratory Failure
Acute on chronic SOB due to recent episodes of strep PNA followed by COVID with deconditioning and CHF
-Recent admissions for Strep pneumonia and COVID
-Patient alternates 6 weeks coarse of doxycycline and Ceftin - Currently on doxycycline
-Continue prednisone as prior to admission, currently tapering down 10mg every 5 days to baseline 5mg
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
-tapered from 30 mg to 20 mg starting 08/24
-Continue Daliresp
-Continue fluticasone and salmeterol
-Continue levalbuterol prn
-Pulm eval appreciated
-Infectious Disease consulted appreciated, cont Cefepime
-Bronchoscopy performed on 08/22/23: follow bronchoalveolar lavage and cultures results
Paroxysmal Atrial Fibrillation s/p Ablation
-Patient is not on anticoagulation as outpatient
-Continue diltiazem
Sacrum Healing Stage 3 pressure injury, POA
-Continue wound care
Anxiety/Depression
Continue Duloxetine and alprazolam
Hypothyroidism
-Continue levothyroxine
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
-Continue gabapentin and duloxetine
-Patient is currently on the maximum dose of Gabapentin (the dose she is on now is only 300mg less per day total) for her creatinine clearance - once patient's CrCl gets to 80 ml/min she can get her home dose
-Appreciate clinical pharmacist input into Gabapentin dosing
Environment/Seasonal Allergies
-Continue fexofenadine and montelukast
History of Monoclonal B-Cell Lymphocytosis
History of Steroid-Induced Myopathy
PT/OT appreciated Rehab vs Home PT
DVT proph: (Previously Lovenox discontinued due to Bleeding as above) TERRI stockings, SCD ordered
GI ppx: protonix
Code Status: DNR/DNI
discussed with patient and her daughter Jerrica
I spent a total of 55 minutes with the patient or on the floor. More than 50% of this time involved counseling and coordination of care.
Anticipated Discharge: > 48 hours
Subjective/Interval History
-
Date of Service: August 23, 2023
No acute distress sitting up comfortably in chair. Endorses coughing wheezing. Blood in stools continues to persist. Patient also endorses weight gain.
Objective Data
-
Labs:
Laboratory Results
08/23/23
06:36
WBC 13.6 H
Hgb 9.5 L
Hct 28.4 L
Plt Count 261
Sodium 137
Potassium 3.8
Chloride 98
Carbon Dioxide 35 H
BUN 15
Creatinine 0.6
Glucose 82
Calcium 8.6
Total Bilirubin 0.6
AST 18
ALT 19
Alkaline Phosphatase 33 L
Vital Signs:
Vital Signs
Temp Pulse Resp BP Pulse Ox
98.2 F 77 18 127/77 94
08/23/23 07:05 08/23/23 07:05 08/23/23 07:05 08/23/23 07:05 08/23/23 07:05
I&O
08/22/23 08/23/23 08/24/23
06:59 06:59 06:59
Intake Total 1020 / 1020 1680 / 1680
Balance 1020 / 1020 1680 / 1680
[2023-08-23] MEDS: MIRALAX 17 GRAMS PO (08:53)
[2023-08-23] MEDS: Pyridium 100 MG PO ×3 (08:53→22:24)
[2023-08-23] MEDS: KCL 20 MEQ PO (08:53)
[2023-08-23] MEDS: CYMBALTA DELAYED RELEASE 30 MG PO (08:53)
[2023-08-23] MEDS: VITAMIN B-12 500 MCG PO (08:54)
[2023-08-23] MEDS: NON-FORMULARY ITEM 1 UNIT PO (08:54)
[2023-08-23] MEDS: VITAMIN B1 100 MG PO (08:54)
[2023-08-23] MEDS: OSCAL 500 + D 500 MG PO ×2 (08:54→19:40)
[2023-08-23] MEDS: NON-FORMULARY ITEM 1 SPRAY NASAL (08:55)
[2023-08-23] MEDS: NON-FORMULARY ITEM 2 SPRAY NASAL ×2 (08:55→19:39)
[2023-08-23] MEDS: COMPOUND MEDICATION TOPICAL (08:56)
[2023-08-23] MEDS: PROTONIX 40 MG PO (09:01)
[2023-08-23] MEDS: DELTASONE 30 MG PO (09:11)
[2023-08-23] MEDS: ProAmatine 2.5 MG PO (10:04)
[2023-08-23] MEDS: LASIX 40 MG PO (10:05)
--- NOTE | 2023-08-23 10:35 | W.PN.ID1 ---
Date of Service
Date of Service: August 23, 2023
Today's Communication
Continue cefepime for today.
Assessment / Plan
Left lower lobe pneumonia
Hypoxemia
Suspected exacerbation of COPD
Monoclonal B-cell lymphocytosis
P A-fib
Hypothyroidism
Gait dysfunction
Hx Steroid-induced myopathy
Recommendations:
Continue with cefepime 2 g IV every 12 hours.
S/P bronch; await further culture data; cultures negative thus far.
Follow white count and temperature curve.
����������������������������������������������������������
Chief Complaint
-: Pneumonia
Subjective / Review of Systems
Review of Systems: No Fever and No Chills
Vital Signs / Physical Exam
Vital Signs
Vital Signs
Temp Pulse Resp BP Pulse Ox
98.2 F 77 16 127/77 96
08/23/23 07:05 08/23/23 07:05 08/23/23 08:51 08/23/23 07:05 08/23/23 08:51
Physical Exam
Constitutional: No Acute Distress, Comfortable, Chronically Ill and Non-toxic
Pulmonary: Non Labored
Gastrointestinal: Non Distended
Neurological: Awake and Alert
Psychological: Calm
Objective Data
Lab Data
Lab Results
08/23/23 06:36
08/23/23 06:36
PT 12.6 Sec (11.4-14.6) 08/19/23 13:02
INR 0.96 08/19/23 13:02
APTT 22.9 Sec (23.4-35.0) L 08/19/23 13:02
Estimated Creat Clear 74 ml/min 08/23/23 06:36
Lactic Acid 1.9 mmol/L (0.7-2.0) 08/16/23 19:17
Total Bilirubin 0.6 mg/dl (0.2-1.3) 08/23/23 06:36
AST 18 U/L (14-36) 08/23/23 06:36
ALT 19 U/L (0-35) 08/23/23 06:36
Alkaline Phosphatase 33 U/L (38-126) L 08/23/23 06:36
Most recent labs reviewed.
Micro Results:
08/22/23 09:56 Respiratory Culture - Preliminary
Bronch Left Upper Lobe Usual Respiratory Kayla
Gram Stain - Preliminary
08/22/23 09:56 Respiratory Culture - Preliminary
Bronch Left Lower Lobe Usual Respiratory Kayla
Gram Stain - Preliminary
08/19/23 16:02 Blood Culture - Preliminary
Blood/Venous No Growth in 72 hours- Final report to follow
08/19/23 13:02 Blood Culture - Preliminary
Blood/Venous No Growth in 72 hours- Final report to follow
08/21/23 11:11 Respiratory Culture - Preliminary
Sputum Usual Respiratory Kayla
Gram Stain - Preliminary
08/22/23 09:56 Fungal Culture - Preliminary
Bronch Left Lower Lobe Culture negative for fungus.
08/22/23 09:56 Fungal Culture - Preliminary
Bronch Left Upper Lobe Culture in progress.
Positive cultures are reported as soon as detected.
Final report to follow in four to five weeks.
08/22/23 09:56 Acid Fast Bacilli Smear - Pending
Bronch Left Upper Lobe Acid Fast Bacilli Culture - Pending
08/22/23 09:56 Acid Fast Bacilli Smear - Pending
Bronch Left Lower Lobe Acid Fast Bacilli Culture - Pending
08/20/23 20:54 Respiratory Culture - Final
Sputum Gram Stain - Final
08/19/23 12:40 Urine Culture - Final
Urine NO GROWTH
08/19/23 12:39 Influenza Types A & B (DIEGO) - Final
Nasal Swab Negative for Influenza A & B, NAAT
Negative results must be combined with clinical observations
and patient history.
Nucleic Acid Amplification test (NAAT)performed on the
[employer] platform.
08/16/23 20:05 Urine Culture - Final
Urine NO GROWTH
[2023-08-23] MEDS: COMPOUND MEDICATION 1 UNIT TOPICAL ×2 (10:46→19:41)
[2023-08-23 11:00] VITALS: BP 106/66
--- NOTE | 2023-08-23 15:20 | W.PN.GI.CBS2 ---
Today's Communication / Plan
-
trend hb, monitor stools, pulm eval, possible cscope mon
Assessment / Plan
-
72 yo F pmh as below here with recurrent PNA s/p [facility] today.� GI consult for rectal bleeding.� She previously had constipation which has resolved with bowel regimen.� Patient never had cscope.
I did rectal 08/22, large external hemorrhoids she does have some pinpoint pain so could also have an anal fissure.
I did discuss with her without a colonoscopy would not be able to rule out something more concerning including malignancy which can present with bright red bleed as well.� Differential can also include polyp, less likely AVM, does not seem to be
diverticular.
With her active PNA, we discussed postoponing cscope as outpatient - yesterday she was hesitant to have procedure. Now she wants to have it done in the hospital.
Her hb has continued to drop - today 9.5.
I discussed with patient and daughter on phone r/a/b of cscope they are agreeable.
However, prior to proceeding would like to ensure she is optimized from pulmonary standpoint given her extensive pulmonary issues - I d/w pulmonary and they will evaluate her today.
I will put her on clear liquid diet for tentative cscope Friday pending pulm eval and clinical status
Continue nitro cream - I d/w pharmacy yesterday and cream was compounded pt got 2 doses
Appt: 09/01 at 8am with Trinh PERRY currently made
Subjective
Subjective
Date of Service: August 23, 2023
Called back by nurse - patient now willing to undergo cscope
Hb dropping as well
Objective
Data Reviewed
Laboratory Data:
Laboratory Results
08/23/23 06:36
08/23/23 06:36
Laboratory Results
PT 12.6 Sec (11.4-14.6) 08/19/23 13:02
INR 0.96 08/19/23 13:02
APTT 22.9 Sec (23.4-35.0) L 08/19/23 13:02
Phosphorus 2.7 mg/dl (2.5-4.5) 08/21/23 06:40
Magnesium 2.0 mg/dl (1.6-2.3) 08/21/23 06:40
Total Bilirubin 0.6 mg/dl (0.2-1.3) 08/23/23 06:36
AST 18 U/L (14-36) 08/23/23 06:36
ALT 19 U/L (0-35) 08/23/23 06:36
Alkaline Phosphatase 33 U/L (38-126) L 08/23/23 06:36
Lipase 318 U/L (23-300) H 08/16/23 19:17
Vital Signs and I&O:
Vital Signs
Temp Pulse Resp BP Pulse Ox
98.4 F 77 16 106/66 94
08/23/23 11:00 08/23/23 13:53 08/23/23 13:53 08/23/23 11:00 08/23/23 13:53
I&O
08/22/23 08/23/23 08/24/23
06:59 06:59 06:59
Intake Total 1020 / 1020 1680 / 1680
Balance 1020 / 1020 1680 / 1680
Physical Exam
Physical Exam
GI: Non Distended and Non Tender
[2023-08-23 15:30] VITALS: BP 90/66; BP 95/60; BP 96/62; PULSE 102; PULSE 89; PULSE 92
--- NOTE | 2023-08-23 16:41 | W.PN.PUL3 ---
Today's Communication / Plan
-
PT/OT
O2
Walking pulse ox prior to discharge
Outpatient follow up with GI
Follow up bronch cultures
Assessment
-
Patient is a 72 year old F with PMH significant for PAF, severe persistent asthma, hypothyroidism admitted 08/16/23 for abnormal sodium (Na =122).� Patient was admitted here Jun for Strep pneumonia.� She was discharged to [facility]'s rehab
and then admitted to [facility] with COVID.� Patient states that she then began to develop increased edema/fluid retention in the legs.� She was started on a diuretic regimen consisting of BID Lasix and daily metolazone. In the past 12 hours, she notes
worsening cough/SOB. Per daughter who provides history on the phone, this was a change that they witnessed since she's been admitted. They have requested pulmonary evaluation 08/19/23.
Symptomatic hypovolemic hyponatremia likely 2/2 over-diuresis
Acute Confusion/Encephalopathy related to above - confused resolved now
Generalized weakness
Chronic cough, nonproductive
Acute on chronic SOB
Urinary retention s/p Alicia
Severe persistent asthma requiring biologic therapy now with acute exacerbation
LLL consolidation - chronic since November 2022 (unknown if present prior to that as we do not have imaging before that time)
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
Adm Jul 2023 for Strep PNA with AE asthma
Adm November 2022: acute hypoxemic respiratory failure, CAP LLL infiltrate, markedly ^PCT, asthma exacerbation. Completed 5d cefepime
Severe asthma, on daliresp, fluticasone, montelukast, salmeterol
Follows up at [facility] and [facility]
Monoclonal B-cell lymphocytosis
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
AFib s/p ablation
Hypothyroidism
Hysterectomy
R hip replacement
Cataract surgery
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
Seasonal allergies
Intermittent epistaxis, historically L>>>R
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
Allergy to azithromycin
DNR
Plan
Titrate O2 flow rate to keep SpO2 >90-94%
No prior history of O2 use at home
She has prior history of severe persistent asthma, being managed by Dr Neely.
She was recently on a prednisone taper. She does feel better with oral steroid dosing.
Recent spirometry as outpatient demonstrating poor effort/cough throughout, but FEV1 1.63L 73%.
Continue OCS with wean as tolerated
Suspect patient has acute on chronic SOB due to recent episodes of strep PNA followed by COVID with deconditioning and CHF
CXR 08/19/23 showing L basilar atelectasis but not significantly changed from prior, never had chest CT.
We will obtain repeat PFT/6MWT to compare to prior done as OP if there is a change
Repeat PFT showing decline but still within moderate range
6MWT pending
Other imaging reviewed, CT Chest obtained showing LLL consolidation, there is small-mod pericardial effusion
s/p bronch with BAL on 08/22 - follow up cultures
ECHO results in past reviewed--stable function
Repeat ECHO on 08/20/2023 shows normal biventricular function
proBNP--none obtained
Careful resumption of diuresis per team
Urinary retention issues noted
Outpatient follow up with GI given rectal bleeding
Will need outpatient pulmonary evaluation in our office for PFTs and 6MWT
Reviewed with patient
Deconditioning is a factor likely as well
Will be beneficial to complete her rehab program when amenable
patient seen and examined on 08/23/2023
Diagnostic Data
CXR 08/19/23- LLL atelectasis
CXR 07/10/23- IMPRESSION: There is consolidation in the left lower lobe consistent with improving pneumonia along with a left pleural effusion. There is probable atelectasis in the right lower lobe.
CXR 07-05-23: Progressed findings suggesting mild left lower lobe pneumonia; New moderate right lower lobe probable atelectasis; Mild cardiomegaly. Stable
CXR 07-03-23 c/w November 15 and . Baseline films with improved LLL infiltrate but persistently blurred L diaphragm. Current films without gross infiltrates but suspicious for positive spine sign at L base
CT Chest 08/20/23: Left base consolidation and/or atelectasis, small amount of right base atelectasis with shift of the mediastinum toward the left. No discrete mediastinal or hilar mass identified however repeat imaging with IV contrast after
treatment is recommended to exclude an occult process. Small bibasilar pleural effusions. Small to moderate amount of pericardial effusion.
Spirometry 08/20/22: FEV1 1.21L 54%, FVC 1.46L 49%, ratio 83. Post FEV1 1.27L 57% no BD response. (mixed pattern, moderately reduced, decreased from prior testing but remains in moderate category)
PFT:
Spirometry 05/23/2023: FEV1/FVC 82%, FEV1 1.63 L-73%, FVC 1.97 L, 66%.� No airflow obstruction.� Patient has difficulty with the maneuvers due to coughing.
[place] 12/17/22: unable.
6 MWT:
6MWT 12/17/22: At rest, O2 99% on room air, heart rate 82. With ambulation, O2 remained at 99 to 100% on room air, max heart rate 90. 5/10 on dyspnea scale. Only able to ambulate 150 feet
ECHO 07/08/23- �LV ejection fraction is 60-65%, by visual assessment. No regional wall motion�abnormalities are seen.�Normal right ventricular size and function.�No significant valvular disease.�No prior study available for comparison.
Subjective Data
-
Date of Service:
Date of Service: August 23, 2023
Chief Complaint: Pulmonary Follow Up
Subjective:
Pt seen this afternoo. No acute events reported from overnight. She is s/p BAL yesterday - Cx are showing NGTD. Currently on 4L/min NC. Has cough - similar to yesterday. Denies chest pain, SIMPSON, abd pain, N/f/c.
Review of Systems
General: Other (negative unless mentioned above)
Objective Data
Data Reviewed
Vital Signs / I&O / Oxygen:
Vital Signs
Temp Pulse Resp BP Pulse Ox
98.4 F 77 16 106/66 94
08/23/23 11:00 08/23/23 13:53 08/23/23 13:53 08/23/23 11:00 08/23/23 13:53
Intake and Output
08/22/23 08/23/23 08/24/23
06:59 06:59 06:59
Intake Total 1020 / 1020 1680 / 1680
Balance 1020 / 1020 1680 / 1680
SaO2 94
Nasal Cannula flow liters per 4
minute
Physical Exam
General: Comfortable and Other (NAD, deconditioned)
HEENT: Normocephalic, Anicteric and Moist Mucous Membranes
Cardiovascular: S1-S2 and Peripheral Edema (negative)
Respiratory: Wheeze (negative), Crackles (left base), Rhonchi (negative), Non-Labored Respirations, Accessory Resp Muscle Use (negative) and Stridor (negative)
GI: Soft, Non Distended and Non Tender
Neurology: AO x 3 and No Motor Deficits
Skin: Warm, Dry and Good Color
Labs/Micro/Reports
Lab Data
08/23/23 06:36
08/23/23 06:36
Microbiology
08/19/23 16:02 Blood/Venous Blood Culture - Preliminary
No Growth in 4 days- Final report to follow
08/19/23 13:02 Blood/Venous Blood Culture - Preliminary
No Growth in 4 days- Final report to follow
08/21/23 11:11 Sputum Respiratory Culture - Final
Usual Respiratory Kayla
08/21/23 11:11 Sputum Gram Stain - Final
08/22/23 09:56 Bronch Left Upper Lobe Respiratory Culture - Preliminary
Usual Respiratory Kayla
08/22/23 09:56 Bronch Left Upper Lobe Gram Stain - Preliminary
08/22/23 09:56 Bronch Left Lower Lobe Respiratory Culture - Preliminary
Usual Respiratory Kayla
08/22/23 09:56 Bronch Left Lower Lobe Gram Stain - Preliminary
08/22/23 09:56 Bronch Left Lower Lobe Fungal Culture - Preliminary
Culture negative for fungus.
08/22/23 09:56 Bronch Left Upper Lobe Fungal Culture - Preliminary
Culture in progress.
Positive cultures are reported as soon as detected.
Final report to follow in four to five weeks.
08/20/23 20:54 Sputum Respiratory Culture - Final
08/20/23 20:54 Sputum Gram Stain - Final
[2023-08-23] MEDS: STERILE WATER FOR INJECTION IV (17:14)
[2023-08-23] MEDS: MAXIPIME IV (17:15)
[2023-08-23] MEDS: VITAMIN C 500 MG PO (17:15)
[2023-08-23] MEDS: VITAMIN D3 (cholecalciferol) 25 MCG PO (17:17)
[2023-08-23 19:00] VITALS: BP 127/78
[2023-08-23] MEDS: CYMBALTA DELAYED RELEASE 60 MG PO (19:39)
[2023-08-23 22:22] VITALS: BP 107/65
[2023-08-23] MEDS: SINGULAIR 10 MG PO (22:23)
[2023-08-23] MEDS: NEURONTIN 300 MG PO (22:23)
[2023-08-23] MEDS: DALIRESP 500 MCG PO (22:24)
[2023-08-23] MEDS: XANAX 0.5 MG PO (23:58)
[2023-08-24] VITALS (8 sets, daily range): BP systolic 88–130; BP diastolic 54–83; PULSE 85–100; BMI 21.3
[2023-08-24] MEDS: MAXIPIME 2000 MG IV (05:29)
[2023-08-24] MEDS: STERILE WATER FOR INJECTION 10 ML IV (05:29)
[2023-08-24] MEDS: FLOMAX 0.800000000000000044 MG PO (05:31)
[2023-08-24] MEDS: ProAmatine 10 MG PO ×2 (05:32→17:38)
[2023-08-24] MEDS: CARDIZEM 30 MG PO (05:32)
[2023-08-24] MEDS: TYLENOL 650 MG PO ×2 (05:33→23:29)
[2023-08-24] MEDS: SYNTHROID 125 MCG PO (05:33)
[2023-08-24] MEDS: NEURONTIN 500 MG PO ×3 (05:33→23:03)
[2023-08-24] MEDS: TESSALON PERLES 100 MG PO ×2 (05:47→23:29)
[2023-08-24 07:12] LABS: Venous Blood Gas B.E. 9.9 mmol/L (-4 to +4); Venous Blood Gas HCO3 36.3 mmol/L (22-27); Venous Blood Gas O2 Sat % 74.3 %; Venous Blood Gas pCO2 60 mmHg (35-48); Venous Blood Gas pH 7.39 (7.32-7.43); Venous Blood Gas pO2 41 mmHg (30-50)
[2023-08-24 07:15] LABS: Hematocrit 28.2 % (37.0-47.0); Hemoglobin 9.2 g/dL (12.0-16.0); Mean Corp Hgb Conc. 32.6 g/dL (33.0-37.0); Mean Corpuscular Hgb 31.1 pg (27.0-31.0); Mean Corpuscular Volume 95.3 fL (81.0-99.0); Mean Platelet Volume 8.9 fL (7.4-10.4); Platelet Count 253 10^3/uL (130-400); Red Blood Cell Count 2.96 10^6/uL (4.20-5.40); Red Cell Dist. Width 14.3 % (11.5-14.5); White Blood Cell Count 12.4 10^3/uL (4.8-10.8)
--- NOTE | 2023-08-24 07:26 | W.PN.HOSP.TC ---
Today's Communication/Plan
-
Monitor H&H
midodrine increase as per Cardio, discontinue cardizem lasix
monitor orthostatic vitals
taper steroid
cont nebulizer treatments
cont abx as per ID
isolation while inpt
Assessment / Plan
Assessment / Plan
Physical Exam
General: Not in acute distress -
HEENT: Normocephalic, Atraumatic
Respiratory: mild wheezing
Cardiac: Regular Rhythm and S1/S2
GI: Soft, Nontender and Nondistended. Positive bowel sounds.
Musculoskeletal: No Clubbing, No Cyanosis and No Edema

CT Head without IV contrast appreciated No acute intracranial abnormality
CT Chest W/o Iv Contrast appreciated Left base consolidation and/or atelectasis, small amount of right base atelectasis with shift of the mediastinum toward the left. Limited exam without IV contrast. No discrete mediastinal or hilar mass
identified however repeat imaging with IV contrast after treatment was recommended to exclude an occult process. Small bibasilar pleural effusions. Small to moderate amount of pericardial effusion
ECHO appreciated
Normal biventricular size and systolic function without regional wall motion
abnormality.
No significant valvular disease.
No prior study available for comparison
Assessment/Plan
Symptomatic Hypovolemic Hyponatremia related to over-diuresis. Feels weak, unable to walk, feels confused
- Hold metolazone
- Resumed Lasix 40 mg 08/22/23 daily as opposed to BID as was her home regimen prior later discontinued as per cardio recommendations
- Hold Celebrex
- IVF completed
- Na improved 130s
- Okay to continue Duloxetine
Acute Confusion/Encephalopathy - Resolved
Generalized Weakness Below Baseline
Left Lower Lobe Consolidation on CT Imaging
Left Lower Lobe Atelectasis
Suspected COPD Exacerbation
Cough, Rhonchi
-UA (urine culture with no growth), Influenza (negative), COVID (negative), Ammonia (low), Coagulation Studies (okay), Serum osmoles (okay), Blood cultures (no growth to date), TSH (low but T4 wnl - outpatient follow up), Vitamin B12 (high)
-Cortisol (in the morning) was low at 1.3 -- likely suppression d/t steroids
-CT Head unremarkable
-Thiamine 100 mg PO daily
Small bibasilar pleural effusions
Small to moderate amount of pericardial effusion
-Cardiology consulted, recommendations appreciated
-Echocardiogram ordered, results are above
-On echo, pericardial effusion is trivial
Orthostatic Hypotension
Dizziness/Lightheadedness on Standing
-[Correction to prior documentation] patient not tolerating abd binder, has been using TEDs only
-cardio consult appreciated, midodrine increased to 10 mg TID, cardizem and lasix discontinued, compression to be increased
Bright red blood through vagina and rectal areas
Bright Red Blood Per Rectum on 08/21/23
-Monitor Hgb
-Consulted GI, recommendations appreciated: patient has never had a colonoscopy,
-cscope on hold for now given bronch cultures positive for acid fast bacilli, trending Hgb
-outpatient OBGYN follow up
Normocytic Anemia
Anemia of Chronic Disease
-Iron Studies appreciated AOCD with Iron level wnl
-Vit B12 non-deficient
Hypokalemia resolved at this time
-monitor and replete as necessary
Chronic dean catheter, requires Flomax
Recent Urethral Bleeding from a Urinary Catheter
Uretheral Prolapse
Bladder Spasms
Reported urinary clots
-Urology consult appreciated, cont outpt follow up with her urologist at [facility] [place]
-Suspected atrophic vaginitis, Estrace cream started, continue, outpt obgyn follow up
Severe COPD
Prior history of severe persistent asthma
Chronic Hypoxic Respiratory Failure
Acute on chronic SOB due to recent episodes of strep PNA followed by COVID with deconditioning and CHF
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
-Recent admissions for Strep pneumonia and COVID
-Patient alternates 6 weeks coarse of doxycycline and Ceftin - Currently on doxycycline
-Continue prednisone as prior to admission, currently tapering down 10mg every 5 days to baseline 5mg
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
-tapered from 30 mg to 20 mg starting 08/24
-Continue Daliresp
-Continue fluticasone and salmeterol
-Continue levalbuterol prn
-Pulm eval appreciated
-Bronchoscopy performed on 08/22/23: follow bronchoalveolar lavage and cultures results acid fast bacilli positive pending speciation
-Infectious Disease consulted appreciated, Cefepime converted to cefdinir, cont isolation while inpatient, quarantine however not indicated when patient is ready for discharge.
Paroxysmal Atrial Fibrillation s/p Ablation
-Patient is not on anticoagulation as outpatient
-Continue diltiazem discontinued as above
Sacrum Healing Stage 3 pressure injury, POA
-Continue wound care
Anxiety/Depression
Continue Duloxetine and alprazolam
Hypothyroidism
-Continue levothyroxine
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
-Continue gabapentin and duloxetine
-Patient is currently on the maximum dose of Gabapentin (the dose she is on now is only 300mg less per day total) for her creatinine clearance - once patient's CrCl gets to 80 ml/min she can get her home dose
-Appreciate clinical pharmacist input into Gabapentin dosing
Environment/Seasonal Allergies
-Continue fexofenadine and montelukast
History of Monoclonal B-Cell Lymphocytosis
History of Steroid-Induced Myopathy
PT/OT appreciated Rehab vs Home PT
DVT proph: (Previously Lovenox discontinued due to Bleeding as above) TERRI stockings, SCD ordered
GI ppx: protonix
Code Status: DNR/DNI
discussed with patient and her daughter Jerrica
I spent a total of 55 minutes with the patient or on the floor. More than 50% of this time involved counseling and coordination of care.
Anticipated Discharge: 24 - 48 hours
Subjective/Interval History
-
Date of Service: August 24, 2023
Blood pressures continue to intermittently drop with associate lightheadedness.
Objective Data
-
Labs:
Laboratory Results
08/24/23
07:01
WBC 12.4 H
Hgb 9.2 L
Hct 28.2 L
Plt Count 253
Sodium Pending
Potassium Pending
Chloride Pending
Carbon Dioxide Pending
BUN Pending
Creatinine Pending
Glucose Pending
Calcium Pending
Total Bilirubin Pending
AST Pending
ALT Pending
Alkaline Phosphatase Pending
Vital Signs:
Vital Signs
Temp Pulse Resp BP Pulse Ox
98 F 75 16 124/76 95
08/24/23 03:28 08/24/23 05:32 08/24/23 03:28 08/24/23 05:32 08/24/23 03:28
I&O
08/23/23 08/24/23 08/25/23
06:59 06:59 06:59
Intake Total 1680 / 1680 1200 / 1200
Balance 1680 / 1680 1200 / 1200
[2023-08-24 07:28] LABS: ALT (SGPT) 19 U/L (0-35); AST (SGOT) 17 U/L (14-36); Albumin 2.5 g/dl (3.5-5.0); Alkaline Phosphatase 33 U/L (38-126); Blood Urea Nitrogen 20 mg/dl (7-17); Calcium 8.9 mg/dl (8.4-10.2); Carbon Dioxide 35 mmol/L (22-30); Chloride 100 mmol/L (98-107); Estimated Creatinine Clearance 74 ml/min; Glucose 71 mg/dl (70-99); Potassium 4.3 mmol/L (3.5-5.1); Sodium 137 mmol/L (135-145); Total Bilirubin 0.6 mg/dl (0.2-1.3); Total Protein 4.2 g/dl (6.3-8.2); eGFR > 60.00
[2023-08-24 07:46] LABS: Procalcitonin < 0.05 ng/ml (0.0-0.25)
[2023-08-24] MEDS: NON-FORMULARY ITEM 1 UNIT INH ×2 (08:19→21:11)
[2023-08-24] MEDS: XOPENEX 0.63 MG INHALANT SOLUTION 0.630000000000000004 MG INH ×3 (08:20→21:11)
[2023-08-24] MEDS: NON-FORMULARY ITEM 2 INH INH ×2 (08:20→21:12)
[2023-08-24] MEDS: PROTONIX 40 MG PO (10:37)
[2023-08-24] MEDS: VITAMIN B1 100 MG PO (10:37)
[2023-08-24] MEDS: OSCAL 500 + D 500 MG PO ×2 (10:38→20:54)
[2023-08-24] MEDS: LASIX 40 MG PO (10:38)
[2023-08-24] MEDS: KCL 20 MEQ PO (10:38)
[2023-08-24] MEDS: VITAMIN B-12 500 MCG PO (10:38)
[2023-08-24] MEDS: DELTASONE 20 MG PO (10:38)
[2023-08-24] MEDS: CYMBALTA DELAYED RELEASE 30 MG PO (10:41)
[2023-08-24] MEDS: Pyridium 100 MG PO ×3 (10:41→20:54)
[2023-08-24] MEDS: XANAX 0.25 MG PO (11:58)
[2023-08-24] MEDS: NON-FORMULARY ITEM 2 SPRAY NASAL ×2 (12:35→20:59)
[2023-08-24] MEDS: NON-FORMULARY ITEM 1 SPRAY NASAL (12:35)
[2023-08-24] MEDS: COMPOUND MEDICATION 1 UNIT TOPICAL ×2 (12:35→23:36)
[2023-08-24] MEDS: NON-FORMULARY ITEM PO (12:36)
--- NOTE | 2023-08-24 12:41 | W.PN.ID1 ---
Date of Service
Date of Service: August 24, 2023
Today's Communication
Transition to cefdinir for additional 5 days.
Assessment / Plan
Left lower lobe pneumonia
Hypoxemia
Suspected exacerbation of COPD
Monoclonal B-cell lymphocytosis
P A-fib
Hypothyroidism
Gait dysfunction
Hx Steroid-induced myopathy
Recommendations:
Patient overall appears improved. Cultures negative thus far, although AFB smears are noted to be positive.
Transition to cefdinir for an additional 5 days of therapy.
I had a long discussion with the patient regarding the positive AFB smears. No history of tuberculosis exposure noted.
Will check QuantiFERON TB Gold.
Discussed with Microbiology Lab; reference lab will add on TB PCR testing to the sample to assess for Mycobacterium tuberculosis.
Continue with respiratory isolation for now while inpatient.
Ultimately will need to await final cultures to assess for therapy.
����������������������������������������������������������
Chief Complaint
-: Pneumonia
Subjective / Review of Systems
Review of Systems: No Fever, No Chills and Cough (Stable to slightly improved.)
Vital Signs / Physical Exam
Vital Signs
Vital Signs
Temp Pulse Resp BP Pulse Ox
98.1 F 98 16 106/67 94
08/24/23 11:55 08/24/23 11:55 08/24/23 11:55 08/24/23 11:55 08/24/23 11:55
Physical Exam
Constitutional: No Acute Distress, Comfortable and Non-toxic
Pulmonary: Non Labored
Neurological: Awake and Alert
Psychological: Calm
Objective Data
Lab Data
Lab Results
08/24/23 07:01
08/24/23 07:01
PT 12.6 Sec (11.4-14.6) 08/19/23 13:02
INR 0.96 08/19/23 13:02
APTT 22.9 Sec (23.4-35.0) L 08/19/23 13:02
Estimated Creat Clear 74 ml/min 08/24/23 07:01
Lactic Acid 1.9 mmol/L (0.7-2.0) 08/16/23 19:17
Total Bilirubin 0.6 mg/dl (0.2-1.3) 08/24/23 07:01
AST 17 U/L (14-36) 08/24/23 07:01
ALT 19 U/L (0-35) 08/24/23 07:01
Alkaline Phosphatase 33 U/L (38-126) L 08/24/23 07:01
Most recent labs reviewed.
Micro Results:
08/22/23 09:56 Respiratory Culture - Final
Bronch Left Upper Lobe Usual Respiratory Kayla
Gram Stain - Final
08/22/23 09:56 Respiratory Culture - Final
Bronch Left Lower Lobe Usual Respiratory Kayla
Gram Stain - Final
08/22/23 09:56 Acid Fast Bacilli Smear - 2+ Acid fast bacilli seen
Bronch Left Upper Lobe Acid Fast Bacilli Culture - Preliminary
Acid fast bacilli
08/22/23 09:56 Acid Fast Bacilli Smear - 2+ Acid fast bacilli seen
Bronch Left Lower Lobe Acid Fast Bacilli Culture - Preliminary
Acid fast bacilli
08/19/23 16:02 Blood Culture - Preliminary
Blood/Venous No Growth in 4 days- Final report to follow
08/19/23 13:02 Blood Culture - Preliminary
Blood/Venous No Growth in 4 days- Final report to follow
08/21/23 11:11 Respiratory Culture - Final
Sputum Usual Respiratory Kayla
Gram Stain - Final
08/22/23 09:56 Fungal Culture - Preliminary
Bronch Left Lower Lobe Culture negative for fungus.
08/22/23 09:56 Fungal Culture - Preliminary
Bronch Left Upper Lobe Culture in progress.
Positive cultures are reported as soon as detected.
Final report to follow in four to five weeks.
08/20/23 20:54 Respiratory Culture - Final
Sputum Gram Stain - Final
08/19/23 12:40 Urine Culture - Final
Urine NO GROWTH
08/19/23 12:39 Influenza Types A & B (DIEGO) - Final
Nasal Swab Negative for Influenza A & B, NAAT
Negative results must be combined with clinical observations
and patient history.
Nucleic Acid Amplification test (NAAT)performed on the
[facility] platform.
08/16/23 20:05 Urine Culture - Final
Urine NO GROWTH
Care Review
Plan reviewed with: Physician (Hospitalist)
--- NOTE | 2023-08-24 13:17 | CON.CAR ---
Consultation
Consultation Request
Date/Time Consultation Requested: 08/24/23
Date/Time Consultation Performed: 08/24/23
Requesting Provider: Dr Smith
Performing Provider: Dr Cedeño (primary cardiology Dr Ranjit Delvalle)
Reason for Consultation: orthostasis
Medical History
-
Chief Complaint: orthostatic vs
History of Present Illness:
72-year-old female with a past medical history of PA a/p remote PVI x2, COPD, hypothyroidism and recent admission in Jun and Jul to for pneumonia during which time she had tachyarrhythmias and was started on diltiazem with subsequent COVID 19
hospitalization at [facility] from [facility] rehab. She had urinary retention with dean insertion during that hospitalization. She presented for abnormal labs with a low Na. She had increased swelling in the legs thighs and abdomen and had
been started on twice daily Lasix and daily metolazone at home. However, labs as an outpatient showed new hyponatremia so she was referred for evaluation on 08/16/2023.Of note, she reports that since being on Dilitiazem she has had orthostatic
hypotension that can occur anytime she is standing. She had her dose of diltiazem decreased from 180 CD to 30 TID and midodrine started but this hasn't really helped.
Hospitalization thus far includes holding of diuresis initially for hypovolemic hyponatremia with resumption of just 40mg once a day of lasix. She was seen by Pulmonary for increased sob and cough. CT scan showed LLL consolidation so abx and
steroids were started. She had a bronchoscopy fur lll atelectasis. CT scan showed small to moderate pericardial effusion. On 08/20/23 repeat echo showed only trivial effusion, noamrl LVEF 60-65%, normal PASP and no valvulopathy. She also had BRBPR
on 08/20/23, hemoglobin has drifted down to 9.2 so plan is for colonscopy Friday. Throughout the hospitalization she had TME.
WE are asked to evaluate her ongoing orthostasis. Throughout her stay, her midodrine was increased but orthostatic bp is present although today not hypotensive just >20 pt drop systolic. On 08/22 lasix 40mg was resumed. Admission weight was
52.39. D/c wt on 07/14/23 was 58.287. Albumin is 2.5.
Past Medical History
Past Medical History: Arrhythmias (PAF s/p PVI), COPD, Hypothyroidism and Other (monoclonal B cell lymphocytosis, Rt neuropathy 2/2 to back )
Social History
Tobacco: Non-Smoker
Alcohol: None
Drug: None
Family History
Family History: Reviewed & Not Pertinent
Allergies / Home Medications
Allergy/AdvReac Type Severity Reaction Status Date / Time
alendronate sodium Allergy abd pain, Verified 08/19/23 05:53
[From Fosamax] diarrhea
azithromycin Allergy Rash Verified 11/20/22 14:52
calamine Allergy Rash Verified 08/16/23 23:53
camphor Allergy Shortness Verified 08/19/23 16:08
of Breath
chlorhexidine Allergy Shortness Verified 08/19/23 16:08
of Breath
codeine Allergy Rash Verified 11/20/22 14:52
glucose [From Gammagard S/D] Allergy Unknown Verified 08/19/23 16:08
glycine [From Gammagard S/D] Allergy Unknown Verified 08/19/23 16:08
IgA less than or equal to 50 Allergy Unknown Verified 08/19/23 16:08
mcg/mL
[From Gammagard S/D]
immune globulin,gamma (IgG) Allergy Unknown Verified 08/19/23 16:08
human
[From Gammagard S/D]
latex Allergy Rash Verified 08/16/23 23:52
morphine Allergy Rash Verified 11/20/22 14:52
tetanus toxoid, adsorbed Allergy Rash Verified 11/20/22 14:52
tuberculin, purified protein Allergy Rash Verified 11/20/22 18:54
deriva
blood transfusion Allergy Hives Uncoded 08/19/23 16:08
Medication Instructions Recorded Confirmed Type
azelastine 137 mcg (0.1 %) nasal 1 spray intranasal DAILY Allergies 11/20/22 08/17/23 History
spray aerosol
celecoxib 200 mg capsule 200 mg PO BID Pain 11/20/22 08/17/23 History
fexofenadine 180 mg tablet 180 mg PO DAILY Allergies 11/20/22 08/17/23 History
fluticasone propionate 50 2 spray intranasal BID Allergies 11/20/22 08/17/23 History
mcg/actuation nasal
spray,suspension
gabapentin 300 mg capsule 300 mg PO HS Pain 11/20/22 08/17/23 History
gabapentin 600 mg tablet 600 mg PO TID@0700,1500,2200 Pain 11/20/22 08/17/23 History
krill oil 1 cap PO DAILY Supplement 11/20/22 08/17/23 History
levothyroxine 112 mcg tablet 112 mcg PO MOWEFR@07 Thyroid 11/20/22 08/17/23 History
levothyroxine 125 mcg tablet 125 mcg PO SUTUTHSA@07 Thyroid 11/20/22 08/17/23 History
montelukast 10 mg tablet 10 mg PO HS Lung/breathing issues 11/20/22 08/17/23 History
doxycycline hyclate 100 mg capsule 100 mg PO BID #60 caps 11/25/22 08/17/23 Rx
Citracal plus D 1 tab PO BID Supplement 07/03/23 08/17/23 History
ascorbic acid (vitamin C) 500 mg 500 mg PO QPM Supplement 07/03/23 08/17/23 History
tablet (Vitamin C)
cefuroxime axetil 500 mg tablet 500 mg PO BID Infection 07/03/23 08/16/23 History
cholecalciferol (vitamin D3) 25 25 mcg PO .4 TIMES A WEEK@1700 07/03/23 08/17/23 History
mcg (1,000 unit) tablet Supplement
cyanocobalamin (vitamin B-12) 500 mcg PO DAILY Supplement 07/03/23 08/17/23 History
1,000 mcg tablet
duloxetine 30 mg capsule,delayed 30 mg PO DAILY Depression 07/03/23 08/17/23 History
release
fluticasone furoate 200 2 inh inhalation R BID 07/03/23 08/17/23 History
mcg/actuation blister powder for Lung/Breathing Issues
inhalation
levalbuterol tartrate 45 1 puff inhalation R Q8HPRN PRN sob 07/03/23 08/17/23 History
mcg/actuation aerosol inhaler
roflumilast 500 mcg tablet 500 mcg PO HS Lung/Breathing Issues 07/03/23 08/17/23 History
(Daliresp)
salmeterol 50 mcg/dose blister 1 inh inhalation R BID 07/03/23 08/17/23 History
powder for inhalation (Serevent Lung/Breathing Issues
Diskus)
turmeric 400 mg capsule 400 mg PO BID Supplement 07/03/23 08/17/23 History
alprazolam 0.5 mg tablet 0.5 mg PO HS #3 tabs 07/12/23 08/17/23 Rx
levalbuterol HCl 1.25 mg/3 mL 1.25 mg (3 mL) inhalation R Q6HPRN 07/12/23 08/17/23 Rx
solution for nebulization PRN sob/wheeze #0 mL
diltiazem HCl 30 mg tablet 30 mg PO TID Blood Pressure 08/16/23 08/17/23 History
furosemide 40 mg tablet (Lasix) 40 mg PO BID@0800,1600 Fluid 08/16/23 08/23/23 History
Retention/Swelling
metolazone 2.5 mg tablet 2.5 mg PO DAILY Fluid 08/16/23 08/16/23 History
Retention/Swelling
midodrine 2.5 mg tablet 2.5 mg PO DAILY@1400 Blood Pressure 08/16/23 08/17/23 History
midodrine 5 mg tablet 5 mg PO DAILY Blood Pressure 08/16/23 08/17/23 History
phenazopyridine 100 mg tablet 100 mg PO TID Urinary Issue 08/16/23 08/17/23 History
(Pyridium)
prednisone 10 mg tablet 30 mg PO DAILY Anti-Inflammatory 08/16/23 08/17/23 History
Fluticasone Propionate (Flixotide) 2 inh inhalation R BID 08/17/23 08/17/23 History
Lung/Breathing Issues
Tylenol Arthritis 1,300 PO BID Pain 08/17/23 History
benzonatate 100 mg capsule 200 mg PO TID Cough 08/17/23 08/17/23 History
duloxetine 60 mg PO QPM Depression 08/17/23 08/17/23 History
tamsulosin 0.8 mg PO DAILY Urinary Issue 08/17/23 08/23/23 History
Review of Systems
-
All other systems: Negative unless noted
Physical Exam
Vital Signs
Temp Pulse Resp BP Pulse Ox
98.1 F 98 16 106/67 94
08/24/23 11:55 08/24/23 11:55 08/24/23 11:55 08/24/23 11:55 08/24/23 11:55
Lab Results
08/24/23 07:01
08/24/23 07:01
Physical Exam
General: Well Developed and Well Nourished
HEENT: Normocephalic and Anicteric
Respiratory: Wheezes (mild expiratory wheezes), Crackles (none), Rhonchi (none) and Non Labored Respirations
Cardiac: S1/S2, Regular Rhythm, Murmur (none), Rub (none) and Peripheral Edema (none)
GI: Soft
Neuro: AO x 3
Impression / Plan
-
Orthostatic hypotension:
likely multifactorial---deconditioning, low albumin, diuretic use when she isn't volume overloaded,
symptoms seemed to start with diltiazem, will hold
will increase Midodrine to TID
will increase compression
Arrhythmia;
-h/o paf, pat ?flutter last admission
-currently sinus
-I will monitor rates off diltiazem
-in the future should be considered for DOAC but not with current GIB work up underway
Hyponatremia:
-improved and euvolemic
-hold further lasix
LLL PNA and atelectasis
-per pulmonary
GIB;
-work up underway with GI
TTE: 08/24/23
CONCLUSIONS
�Normal biventricular size and systolic function without regional wall motion
�abnormality.
�No significant valvular disease.
Trivial pericardia effusion
Data Reviewed
-
EKG: Tracing Personally Visualized and interpreted (08/16/[address] abnormality)
[2023-08-24] MEDS: CARDIZEM PO (14:45)
--- NOTE | 2023-08-24 15:02 | W.PN.GI.CBS2 ---
Today's Communication / Plan
-
ID/pulm re: AFB positive, monitor Hb/stools, cscope timing pending
Assessment / Plan
-
72 yo F pmh as below here with recurrent PNA s/p [facility] today.� GI consult for rectal bleeding.� She previously had constipation which has resolved with bowel regimen.� Patient never had cscope.
I did rectal 08/22, large external hemorrhoids she does have some pinpoint pain so could also have an anal fissure.
I did discuss with her without a colonoscopy would not be able to rule out something more concerning including malignancy which can present with bright red bleed as well.� Differential can also include polyp, less likely AVM, does not seem to be
diverticular. Patient now agreeable, inpatient vs outpatient pending clinical status.
AFB positive - will put cscope on hold for now.
Her hb has continued to drop - today 9.2. Will continue to trend.
Continue nitro cream.
D/w pulm and hospitalist as well.
Regular diet.
Appt: 09/01 at 8am with Trinh PERRY currently made
Subjective
Subjective
Date of Service: August 24, 2023
Received update - AFB positive.
Changed respiratory precautions.
Still having blood in stool - mixed with brown.
Does feel the nitro is helping.
Objective
Data Reviewed
Laboratory Data:
Laboratory Results
08/24/23 07:01
08/24/23 07:01
Laboratory Results
PT 12.6 Sec (11.4-14.6) 08/19/23 13:02
INR 0.96 08/19/23 13:02
APTT 22.9 Sec (23.4-35.0) L 08/19/23 13:02
Phosphorus 2.7 mg/dl (2.5-4.5) 08/21/23 06:40
Magnesium 2.0 mg/dl (1.6-2.3) 08/21/23 06:40
Total Bilirubin 0.6 mg/dl (0.2-1.3) 08/24/23 07:01
AST 17 U/L (14-36) 08/24/23 07:01
ALT 19 U/L (0-35) 08/24/23 07:01
Alkaline Phosphatase 33 U/L (38-126) L 08/24/23 07:01
Lipase 318 U/L (23-300) H 08/16/23 19:17
Vital Signs and I&O:
Vital Signs
Temp Pulse Resp BP Pulse Ox
98.1 F 101 16 88/50 94
08/24/23 11:55 08/24/23 14:45 08/24/23 11:55 08/24/23 14:45 08/24/23 11:55
I&O
08/23/23 08/24/23 08/25/23
06:59 06:59 06:59
Intake Total 1680 / 1680 1200 / 1200
Balance 1680 / 1680 1200 / 1200
Physical Exam
Physical Exam
GI: Non Distended and Non Tender
--- NOTE | 2023-08-24 16:24 | CM ---
CM reviewed chart. Per medical consultation, plan for colonoscopy Friday. Per Goyo, no response from [facility] or [facility]. CM will continue to follow for discharge planning needs.
Plan; Acute vs Skilled Rehab pending bed availability/when medically stable.
[2023-08-24] MEDS: ProAmatine PO (16:35)
[2023-08-24] MEDS: VITAMIN D3 (cholecalciferol) 25 MCG PO (17:37)
[2023-08-24] MEDS: VITAMIN C 500 MG PO (17:37)
[2023-08-24] MEDS: STERILE WATER FOR INJECTION IV (17:38)
--- NOTE | 2023-08-24 18:05 | W.PN.PUL3 ---
Today's Communication / Plan
-
PT/OT
O2
Walking pulse ox prior to discharge
Rectal bleeding workup as per GI
Follow up bronch cultures -growing AFB thus far -follow-up sensitivities
Antibiotics as per ID
Assessment
-
Patient is a 72 year old F with PMH significant for PAF, severe persistent asthma, hypothyroidism admitted 08/16/23 for abnormal sodium (Na =122).� Patient was admitted here Jun for Strep pneumonia.� She was discharged to [facility] rehab
and then admitted to [facility] with COVID.� Patient states that she then began to develop increased edema/fluid retention in the legs.� She was started on a diuretic regimen consisting of BID Lasix and daily metolazone. In the past 12 hours, she notes
worsening cough/SOB. Per daughter who provides history on the phone, this was a change that they witnessed since she's been admitted. They have requested pulmonary evaluation 08/19/23.
Symptomatic hypovolemic hyponatremia likely 2/2 over-diuresis -hyponatremia now resolved
Acute Confusion/Encephalopathy related to above - confused resolved now
Generalized weakness
Chronic cough, nonproductive
Acute on chronic SOB -likely due to RODRIGUEZ
Urinary retention s/p Alicia
Severe persistent asthma requiring biologic therapy now with acute exacerbation
LLL consolidation - chronic since November 2022 (unknown if present prior to that as we do not have imaging before that time)
Conditions [employer]INE[employer]ING [employer] DES[employer]:
Adm Jul 2023 for Strep PNA with AE asthma
Adm November 2022: acute hypoxemic respiratory failure, CAP LLL infiltrate, markedly ^PCT, asthma exacerbation. Completed 5d cefepime
Severe asthma, on daliresp, fluticasone, montelukast, salmeterol
Follows up at [facility] and [facility]
Monoclonal B-cell lymphocytosis
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
AFib s/p ablation
Hypothyroidism
Hysterectomy
R hip replacement
Cataract surgery
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
Seasonal allergies
Intermittent epistaxis, historically L>>>R
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
Allergy to azithromycin
DNR
Plan
Titrate O2 flow rate to keep SpO2 >90-94%
No prior history of O2 use at home
She has prior history of severe persistent asthma, being managed by Dr Neely.
She was recently on a prednisone taper. She does feel better with oral steroid dosing.
Recent spirometry as outpatient demonstrating poor effort/cough throughout, but FEV1 1.63L 73%.
Continue OCS with wean as tolerated
Suspect patient has acute on chronic SOB due to recent episodes of strep PNA followed by COVID with deconditioning and CHF
CXR 08/19/23 showing L basilar atelectasis but not significantly changed from prior, never had chest CT.
We will obtain repeat PFT/6MWT to compare to prior done as OP if there is a change
Repeat PFT showing decline but still within moderate range
6MWT pending
Other imaging reviewed, CT Chest obtained showing LLL consolidation, there is small-mod pericardial effusion
s/p bronch with BAL on 08/22 -growing AFB, suspected to be RODRIGUEZ. Follow-up sensitivities. Follow-up fungus and bacterial culture
Antibiotics as per ID --> cefepime changed to cefdinir
ECHO results in past reviewed--stable function
Repeat ECHO on 08/20/2023 shows normal biventricular function
proBNP--none obtained
Careful resumption of diuresis per team
Urinary retention issues noted
Follow up with GI given rectal bleeding with a downtrending Hb
Considering AFB is likely due to RODRIGUEZ, and patient not having any hemoptysis and O2 requirement seems stable, I am okay if patient obtains colonoscopy while she is inpatient. Considering she does have chronic bilateral infiltrates with hypoxia and
severe deconditioning, perhaps a flex-sigmoidoscopy without anesthesia is an option. At least to rule out a more distal view of her bowel which is better than nothing at this point. She does remain at intermediate�high risk for postoperative
pulmonary complications especially if general anesthesia is used.
Will need outpatient pulmonary evaluation in our office for PFTs and 6MWT
Reviewed with patient
Deconditioning is a factor likely as well
Will be beneficial to complete her rehab program when amenable
Pulmonary service will continue to follow along.
Diagnostic Data
CXR 08/19/23- LLL atelectasis
CXR 07/10/23- IMPRESSION: There is consolidation in the left lower lobe consistent with improving pneumonia along with a left pleural effusion. There is probable atelectasis in the right lower lobe.
CXR 07-05-23: Progressed findings suggesting mild left lower lobe pneumonia; New moderate right lower lobe probable atelectasis; Mild cardiomegaly. Stable
CXR 07-03-23 c/w November 15 and . Baseline films with improved LLL infiltrate but persistently blurred L diaphragm. Current films without gross infiltrates but suspicious for positive spine sign at L base
CT Chest 08/20/23: Left base consolidation and/or atelectasis, small amount of right base atelectasis with shift of the mediastinum toward the left. No discrete mediastinal or hilar mass identified however repeat imaging with IV contrast after
treatment is recommended to exclude an occult process. Small bibasilar pleural effusions. Small to moderate amount of pericardial effusion.
Spirometry 08/20/22: FEV1 1.21L 54%, FVC 1.46L 49%, ratio 83. Post FEV1 1.27L 57% no BD response. (mixed pattern, moderately reduced, decreased from prior testing but remains in moderate category)
PFT:
Spirometry 05/23/2023: FEV1/FVC 82%, FEV1 1.63 L-73%, FVC 1.97 L, 66%.� No airflow obstruction.� Patient has difficulty with the maneuvers due to coughing.
[place] 12/17/22: unable.
6 MWT:
6MWT 12/17/22: At rest, O2 99% on room air, heart rate 82. With ambulation, O2 remained at 99 to 100% on room air, max heart rate 90. 5/10 on dyspnea scale. Only able to ambulate 150 feet
ECHO 07/08/23- �LV ejection fraction is 60-65%, by visual assessment. No regional wall motion�abnormalities are seen.�Normal right ventricular size and function.�No significant valvular disease.�No prior study available for comparison.
Subjective Data
-
Date of Service:
Date of Service: August 24, 2023
Chief Complaint: Pulmonary Follow Up
Subjective:
Patient seen today at bedside. She is upset because she was moved into an isolation room overnight not told why. AFB is growing from her bronchoalveolar lavage from 08/22/2023. She is on 4 L by nasal cannula, she feels well. Gets feelings of
'blood being drained from her body' randomly, could happen with activity, and not always after she first initially starts to stand/do activity. Currently denies chest pain, headache, fevers or chills.
Review of Systems
General: Other (Negative unless mentioned above)
Objective Data
Data Reviewed
Vital Signs / I&O / Oxygen:
Vital Signs
Temp Pulse Resp BP Pulse Ox
98.3 F 63 18 114/71 94
08/24/23 19:45 08/24/23 21:12 08/24/23 21:12 08/24/23 19:45 08/24/23 21:12
Intake and Output
08/23/23 08/24/23 08/25/23
06:59 06:59 06:59
Intake Total 1680 / 1680 1200 / 1200 1800 / 1800
Balance 1680 / 1680 1200 / 1200 1800 / 1800
SaO2 94
Nasal Cannula flow liters per 4
minute
Physical Exam
General: Comfortable and Other (NAD, deconditioned)
HEENT: Normocephalic, Anicteric and Moist Mucous Membranes
Cardiovascular: S1-S2 and Peripheral Edema (negative)
Respiratory: Wheeze (negative), Crackles (left base), Rhonchi (negative), Non-Labored Respirations, Accessory Resp Muscle Use (negative) and Stridor (negative)
GI: Soft, Non Distended and Non Tender
Neurology: AO x 3 and No Motor Deficits
Skin: Warm, Dry and Good Color
Labs/Micro/Reports
Lab Data
08/24/23 07:01
08/24/23 07:01
Microbiology
08/19/23 16:02 Blood/Venous Blood Culture - Final
No Growth - Final Report
08/22/23 09:56 Bronch Left Upper Lobe Acid Fast Bacilli Smear - Preliminary
08/22/23 09:56 Bronch Left Upper Lobe Acid Fast Bacilli Culture - Preliminary
Acid fast bacilli
08/19/23 13:02 Blood/Venous Blood Culture - Final
No Growth - Final Report
08/22/23 09:56 Bronch Left Lower Lobe Acid Fast Bacilli Smear - Preliminary
08/22/23 09:56 Bronch Left Lower Lobe Acid Fast Bacilli Culture - Preliminary
Acid fast bacilli
08/22/23 09:56 Bronch Left Upper Lobe Respiratory Culture - Final
Usual Respiratory Kayla
08/22/23 09:56 Bronch Left Upper Lobe Gram Stain - Final
08/22/23 09:56 Bronch Left Lower Lobe Respiratory Culture - Final
Usual Respiratory Kayla
08/22/23 09:56 Bronch Left Lower Lobe Gram Stain - Final
08/21/23 11:11 Sputum Respiratory Culture - Final
Usual Respiratory Kayla
08/21/23 11:11 Sputum Gram Stain - Final
08/22/23 09:56 Bronch Left Lower Lobe Fungal Culture - Preliminary
Culture negative for fungus.
08/22/23 09:56 Bronch Left Upper Lobe Fungal Culture - Preliminary
Culture in progress.
Positive cultures are reported as soon as detected.
Final report to follow in four to five weeks.
[2023-08-24] MEDS: OMNICEF 300 MG PO (20:53)
[2023-08-24] MEDS: CYMBALTA DELAYED RELEASE 60 MG PO (20:54)
[2023-08-24] MEDS: SINGULAIR 10 MG PO (20:55)
[2023-08-24] MEDS: DALIRESP 500 MCG PO (20:55)
[2023-08-24] MEDS: NEURONTIN 300 MG PO ×2 (23:02→23:03)
[2023-08-24] MEDS: XANAX 0.5 MG PO (23:29)
[2023-08-24] MEDS: ESTRACE 0.01% VAGINAL CREAM VAG (23:37)
[2023-08-25 04:10] VITALS: BP 138/86
[2023-08-25 06:00] VITALS: BMI 21.4
[2023-08-25] MEDS: MIRALAX 17 GRAMS PO (06:14)
[2023-08-25] MEDS: FLOMAX 0.800000000000000044 MG PO (06:19)
[2023-08-25] MEDS: Pyridium 100 MG PO ×3 (06:19→22:39)
[2023-08-25] MEDS: TESSALON PERLES 100 MG PO ×2 (06:19→23:37)
[2023-08-25] MEDS: TYLENOL 650 MG PO ×2 (06:19→23:30)
[2023-08-25] MEDS: NEURONTIN 500 MG PO (06:19)
[2023-08-25] MEDS: SYNTHROID 112 MCG PO (06:20)
--- NOTE | 2023-08-25 06:59 | W.PN.HOSP.TC ---
Today's Communication/Plan
-
home celecoxib resumed
gabapentin adjusted to 600 mg TID as oppose to prior 500 mg morning afternoon and 800 mg bedtime
cont midodrine as per Cardio
monitor H&H
tentatively planned for Colonoscopy Fri
abx as per ID
Assessment / Plan
Assessment / Plan
Physical Exam
General: Not in acute distress -
HEENT: Normocephalic, Atraumatic
Respiratory: mild wheezing
Cardiac: Regular Rhythm and S1/S2
GI: Soft, Nontender and Nondistended. Positive bowel sounds.
Musculoskeletal: No Clubbing, No Cyanosis and No Edema

CT Head without IV contrast appreciated No acute intracranial abnormality
CT Chest W/o Iv Contrast appreciated Left base consolidation and/or atelectasis, small amount of right base atelectasis with shift of the mediastinum toward the left. Limited exam without IV contrast. No discrete mediastinal or hilar mass
identified however repeat imaging with IV contrast after treatment was recommended to exclude an occult process. Small bibasilar pleural effusions. Small to moderate amount of pericardial effusion
ECHO appreciated
Normal biventricular size and systolic function without regional wall motion
abnormality.
No significant valvular disease.
No prior study available for comparison
Assessment/Plan
Symptomatic Hypovolemic Hyponatremia related to over-diuresis. Feels weak, unable to walk, feels confused
- Hold metolazone
- Resumed Lasix 40 mg 08/22/23 daily as opposed to BID as was her home regimen prior later discontinued as per cardio recommendations
- Hold Celebrex
- IVF completed
- Na improved 130s
- Okay to continue Duloxetine
Acute Confusion/Encephalopathy - Resolved
Generalized Weakness Below Baseline
Left Lower Lobe Consolidation on CT Imaging
Left Lower Lobe Atelectasis
Suspected COPD Exacerbation
Cough, Rhonchi
-UA (urine culture with no growth), Influenza (negative), COVID (negative), Ammonia (low), Coagulation Studies (okay), Serum osmoles (okay), Blood cultures (no growth to date), TSH (low but T4 wnl - outpatient follow up), Vitamin B12 (high)
-Cortisol (in the morning) was low at 1.3 -- likely suppression d/t steroids
-CT Head unremarkable
-Thiamine 100 mg PO daily
Small bibasilar pleural effusions
Small to moderate amount of pericardial effusion
-Cardiology consulted, recommendations appreciated
-Echocardiogram ordered, results are above
-On echo, pericardial effusion is trivial
Orthostatic Hypotension
Dizziness/Lightheadedness on Standing
-patient not tolerating abd binder, has been using TEDs only
-cardio consult appreciated, midodrine increased to 10 mg TID, cardizem and lasix discontinued, compression to be increased
Bright red blood through vagina and rectal areas
Bright Red Blood Per Rectum on 08/21/23
-Monitor Hgb
-Consulted GI, recommendations appreciated: patient has never had a colonoscopy,
-cscope tentatively planned for 08/27
-outpatient OBGYN follow up
Normocytic Anemia
Anemia of Chronic Disease
-Iron Studies appreciated AOCD with Iron level wnl
-Vit B12 non-deficient
Hypokalemia resolved at this time
-monitor and replete as necessary
Chronic dean catheter, requires Flomax
Recent Urethral Bleeding from a Urinary Catheter
Uretheral Prolapse
Bladder Spasms
Reported urinary clots
-Urology consult appreciated, cont outpt follow up with her urologist at [facility]
-Suspected atrophic vaginitis, Estrace cream started, continue, outpt obgyn follow up
Severe COPD
Prior history of severe persistent asthma
Chronic Hypoxic Respiratory Failure
Acute on chronic SOB due to recent episodes of strep PNA followed by COVID with deconditioning and CHF
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
-Recent admissions for Strep pneumonia and COVID
-Patient alternates 6 weeks coarse of doxycycline and Ceftin - Currently on doxycycline
-Continue prednisone as prior to admission, currently tapering down 10mg every 5 days to baseline 5mg
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
-tapered from 30 mg to 20 mg starting 08/24
-Continue Daliresp
-Continue fluticasone and salmeterol
-Continue levalbuterol prn
-Pulm eval appreciated
-Bronchoscopy performed on 08/22/23: follow bronchoalveolar lavage and cultures results acid fast bacilli positive pending speciation, PCR for TB however neg
-Infectious Disease consulted appreciated, Cefepime converted to cefdinir, no need for isolation/quarantine at this time.
Paroxysmal Atrial Fibrillation s/p Ablation
-Patient is not on anticoagulation as outpatient
-Continue diltiazem discontinued as above
Sacrum Healing Stage 3 pressure injury, POA
-Continue wound care
Anxiety/Depression
Continue Duloxetine and alprazolam
Hypothyroidism
-Continue levothyroxine
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
-Continue gabapentin and duloxetine
-Gabapentin at max dose 1800 mg at 3 divided doses for her Cr clearance,
Arthritis
-home celecoxib resumed 08/25 discussed with patient regarding potential risk hyponatremia tamie worsening GI bleed, patient able to verbalize her understanding of potential risk and requests to resume given the potential benefit with regards to
resolution/improvement arthritic pain
Environment/Seasonal Allergies
-Continue fexofenadine and montelukast
History of Monoclonal B-Cell Lymphocytosis
History of Steroid-Induced Myopathy
PT/OT appreciated Rehab vs Home PT
DVT proph: (Previously Lovenox discontinued due to Bleeding as above) TERRI stockings, SCD ordered
GI ppx: protonix
Code Status: DNR/DNI
I spent a total of 55 minutes with the patient or on the floor. More than 50% of this time involved counseling and coordination of care.
Anticipated Discharge: 24 - 48 hours
Subjective/Interval History
-
Date of Service: August 25, 2023
reports significant arthritic and neuropathic pain.
Objective Data
-
Labs:
Laboratory Results
08/25/23
06:00
WBC Pending
Hgb Pending
Hct Pending
Plt Count Pending
Sodium Pending
Potassium Pending
Chloride Pending
Carbon Dioxide Pending
BUN Pending
Creatinine Pending
Glucose Pending
Calcium Pending
Total Bilirubin Pending
AST Pending
ALT Pending
Alkaline Phosphatase Pending
Vital Signs:
Vital Signs
Temp Pulse Resp BP Pulse Ox
97.4 F 83 16 138/86 96
08/25/23 04:10 08/25/23 04:10 08/25/23 04:10 08/25/23 04:10 08/25/23 04:10
I&O
08/23/23 08/24/23 08/25/23
06:59 06:59 06:59
Intake Total 1680 / 1680 1200 / 1200 1800 / 1800
Balance 1680 / 1680 1200 / 1200 1800 / 1800
[2023-08-25] MEDS: XOPENEX 0.63 MG INHALANT SOLUTION 0.630000000000000004 MG INH ×2 (07:21→20:00)
[2023-08-25] MEDS: NON-FORMULARY ITEM 2 INH INH ×2 (07:21→20:12)
[2023-08-25] MEDS: NON-FORMULARY ITEM 1 UNIT INH ×2 (07:21→20:12)
[2023-08-25 08:02] VITALS: BP 119/71
--- NOTE | 2023-08-25 08:16 | W.PN.CD ---
Today's Communication / Plan
-
continue midodrine
continue to hold diltiazem
continue daily weights
Impression / Plan
-
Orthostatic hypotension:
likely multifactorial---deconditioning, low albumin, diuretic use when she isn't volume overloaded
symptoms seemed to start with diltiazem, continue to hold.hold
will increase Midodrine to TID
-she would only like to receive if bp <120. She gets headaches at sbp 140 and she feels poorly if her bp is <100
-we had a miranda discussion about our goals and ability to control bp. It is unrealistic to think that her bp will be perfect at all times. She has many active medical issues contributing and we need to have a goal of safely ambulating.
-discussed with nurse to start the l increase compression
Volume overload:
-she has tracing pitting when she goes looking for pitting edema in her ankle and then if she really pushes into her thigh, she thinks she will need lasix
-she isn't total body overloaded
-her albumin is 2.5
-she is sedentary
-I explained if she keeps asking for a medication for each small issue rather focusing on her whole picture, we will see more hypotension, lyte abnormalities etc
-she needs compression, nutrition and no lasix currently.
Arrhythmia;
-h/o paf, pat ?flutter last admission
-currently sinus
- monitor rates off diltiazem
-in the future should be considered for DOAC but not with current GIB work up underway
Hyponatremia:
-improved and euvolemic
-hold further lasix
LLL PNA and atelectasis
-per pulmonary
GIB;
-work up underway with GI
Subjective:
She is worried about her bp range, the trace pitting edema she can induce on her thighs and ankles.
TTE: 08/24/23
CONCLUSIONS
�Normal biventricular size and systolic function without regional wall motion
�abnormality.
�No significant valvular disease.
Trivial pericardia effusion
Physical Exam
Vital Signs/Labs
Vital Signs
Temp Pulse Resp BP Pulse Ox
98.6 F 90 20 119/71 94
08/25/23 08:02 08/25/23 08:02 08/25/23 08:02 08/25/23 08:02 08/25/23 08:02
08/24/23 08/25/23 08/26/23
06:59 06:59 06:59
Actual Weight 56.245 kg 56.444 kg
PT 12.6 Sec (11.4-14.6) 08/19/23 13:02
INR 0.96 08/19/23 13:02
APTT 22.9 Sec (23.4-35.0) L 08/19/23 13:02
Magnesium 2.0 mg/dl (1.6-2.3) 08/21/23 06:40
Free T4 1.19 ng/dl (0.78-2.19) 08/19/23 13:02
Physical Exam
Constitutional: No acute distress
Cardiovascular: Rhythm & rate is regular, Pedal edema is absent, JVD pressure is normal, Systolic murmur absent and JVD present
Respiratory: Respiratory effort normal, Lungs clear to auscul., Wheeze Absent, Crackles Absent and Rhonchi Absent
Neuro/Psych: AO x 3
Data Reviewed
-
Date of Service: August 25, 2023
EKG: Other (sinus tach)
[2023-08-25 08:22] LABS: Hematocrit 28.5 % (37.0-47.0); Hemoglobin 9.3 g/dL (12.0-16.0); Mean Corp Hgb Conc. 32.6 g/dL (33.0-37.0); Mean Corpuscular Hgb 32.2 pg (27.0-31.0); Mean Corpuscular Volume 98.6 fL (81.0-99.0); Platelet Count 256 10^3/uL (130-400); Red Blood Cell Count 2.89 10^6/uL (4.20-5.40); Red Cell Dist. Width 14.5 % (11.5-14.5); White Blood Cell Count 12.3 10^3/uL (4.8-10.8)
[2023-08-25 09:04] LABS: ALT (SGPT) 19 U/L (0-35); AST (SGOT) 18 U/L (14-36); Albumin 2.5 g/dl (3.5-5.0); Alkaline Phosphatase 33 U/L (38-126); Blood Urea Nitrogen 15 mg/dl (7-17); Calcium 8.7 mg/dl (8.4-10.2); Carbon Dioxide 33 mmol/L (22-30); Chloride 99 mmol/L (98-107); Estimated Creatinine Clearance 74 ml/min; Glucose 78 mg/dl (70-99); Magnesium 2.6 mg/dl (1.6-2.3); Phosphorus 2.6 mg/dl (2.5-4.5); Potassium 3.8 mmol/L (3.5-5.1); Sodium 135 mmol/L (135-145); Total Bilirubin 0.6 mg/dl (0.2-1.3); Total Protein 4.3 g/dl (6.3-8.2); eGFR > 60.00
[2023-08-25] MEDS: OSCAL 500 + D 500 MG PO ×2 (09:38→20:06)
[2023-08-25] MEDS: PROTONIX 40 MG PO (09:41)
[2023-08-25] MEDS: VITAMIN B-12 500 MCG PO (09:41)
[2023-08-25] MEDS: OMNICEF 300 MG PO ×2 (09:41→20:06)
[2023-08-25] MEDS: DELTASONE 20 MG PO (09:41)
[2023-08-25] MEDS: KCL 20 MEQ PO (09:41)
[2023-08-25] MEDS: CYMBALTA DELAYED RELEASE 30 MG PO (09:41)
[2023-08-25] MEDS: NON-FORMULARY ITEM 2 SPRAY NASAL ×2 (09:42→20:10)
[2023-08-25] MEDS: ProAmatine 10 MG PO ×2 (09:42→17:55)
[2023-08-25] MEDS: VITAMIN B1 100 MG PO (09:42)
[2023-08-25] MEDS: NON-FORMULARY ITEM 1 SPRAY NASAL (09:43)
[2023-08-25] MEDS: COMPOUND MEDICATION 1 UNIT TOPICAL ×2 (09:44→20:13)
[2023-08-25] MEDS: NON-FORMULARY ITEM 1 UNIT PO (09:47)
[2023-08-25 11:19] VITALS: BP 100/66
--- NOTE | 2023-08-25 11:42 | CM ---
Spoke with patient bedside.
Per patient, new dx bronchiectasis requiring oxygen, and GI bleed requiring w/u.
Patient requested [facility] review again for acute rehab.
TC to Luz from [facility] and updated referral placed.
CM will continue to follow for d/c needs.
Plan: Acute vs skilled vs home with Hannah DUNCAN.
--- NOTE | 2023-08-25 13:06 | W.PN.ID1 ---
Date of Service
Date of Service: August 25, 2023
Today's Communication
Continue current course of cefdinir. Will see again in the outpatient setting in follow-up.
Assessment / Plan
Left lower lobe pneumonia
Hypoxemia
Suspected exacerbation of COPD
Recovery of Mycobacterium from [facility] sample
- PCR negative for Mycobacterium tuberculosis; suspect RODRIGUEZ
Monoclonal B-cell lymphocytosis
P A-fib
Hypothyroidism
Gait dysfunction
Hx Steroid-induced myopathy
Recommendations:
Patient overall appears improved. Cultures negative thus far, although AFB smears are noted to be positive.
Continue cefdinir for an additional 4 days of therapy.
I had a long discussion with the patient regarding the positive AFB smears. No history of tuberculosis exposure noted.
TB PCR negative; will need to await final speciation of recovered AFB. Outpatient follow-up thereafter, to discuss options.
����������������������������������������������������������
Chief Complaint
-: Pneumonia
Subjective / Review of Systems
Review of Systems: No Fever and No Chills
Vital Signs / Physical Exam
Vital Signs
Vital Signs
Temp Pulse Resp BP Pulse Ox
98.7 F 123 26 100/66 88
08/25/23 11:19 08/25/23 11:19 08/25/23 11:19 08/25/23 11:19 08/25/23 11:20
Physical Exam
Constitutional: No Acute Distress, Comfortable, Chronically Ill and Non-toxic
Eyes: Sclera Anicteric
Cardiovascular: S1/S2; Negative S3/S4
Pulmonary: Rhonchi (Few; scattered), Coarse and Non Labored
Gastrointestinal: Soft, Non Tender and Non Distended
Neurological: Awake and Alert
Psychological: Calm
Objective Data
Lab Data
Lab Results
08/25/23 07:42
08/25/23 07:42
PT 12.6 Sec (11.4-14.6) 08/19/23 13:02
INR 0.96 08/19/23 13:02
APTT 22.9 Sec (23.4-35.0) L 08/19/23 13:02
Estimated Creat Clear 74 ml/min 08/25/23 07:42
Lactic Acid 1.9 mmol/L (0.7-2.0) 08/16/23 19:17
Total Bilirubin 0.6 mg/dl (0.2-1.3) 08/25/23 07:42
AST 18 U/L (14-36) 08/25/23 07:42
ALT 19 U/L (0-35) 08/25/23 07:42
Alkaline Phosphatase 33 U/L (38-126) L 08/25/23 07:42
Most recent labs reviewed.
Micro Results:
08/22/23 09:56 Fungal Culture - Preliminary
Bronch Left Upper Lobe Culture in progress.
Positive cultures are reported as soon as detected.
Final report to follow in four to five weeks.
08/22/23 09:56 Fungal Culture - Preliminary
Bronch Left Lower Lobe Yeast
08/22/23 09:56 Acid Fast Bacilli Smear - Preliminary
Bronch Left Lower Lobe Acid Fast Bacilli Culture - Preliminary
Acid fast bacilli
Specimen Source - Final
Mycobacterium tuberculosis DNA (PCR - Final : NEGATIVE )
M. tuberculosis Rifampin (PCR) - Final
M. tuberculosis Complex Interpretat - Final
08/19/23 16:02 Blood Culture - Final
Blood/Venous No Growth - Final Report
08/22/23 09:56 Acid Fast Bacilli Smear - Preliminary
Bronch Left Upper Lobe Acid Fast Bacilli Culture - Preliminary
Acid fast bacilli
08/19/23 13:02 Blood Culture - Final
Blood/Venous No Growth - Final Report
08/22/23 09:56 Respiratory Culture - Final
Bronch Left Upper Lobe Usual Respiratory Kayla
Gram Stain - Final
08/22/23 09:56 Respiratory Culture - Final
Bronch Left Lower Lobe Usual Respiratory Kayla
Gram Stain - Final
08/21/23 11:11 Respiratory Culture - Final
Sputum Usual Respiratory Kayla
Gram Stain - Final
08/20/23 20:54 Respiratory Culture - Final
Sputum Gram Stain - Final
08/19/23 12:40 Urine Culture - Final
Urine NO GROWTH
08/19/23 12:39 Influenza Types A & B (DIEGO) - Final
Nasal Swab Negative for Influenza A & B, NAAT
Negative results must be combined with clinical observations
and patient history.
Nucleic Acid Amplification test (NAAT)performed on the
[employer] platform.
08/16/23 20:05 Urine Culture - Final
Urine NO GROWTH
--- NOTE | 2023-08-25 13:07 | W.PN.GI.CBS2 ---
Addendum entered and electronically signed by Leeanna Allison MD 08/25/23 17:40:
I saw and examined the patient.
The MANAGER SCIENCE or PA's note was reviewed and I agree with the note.
Comment: 72 yo F pmh as below here with recurrent PNA s/p bronc 08/22.� GI consult for rectal bleeding.� She previously had constipation which has resolved with bowel regimen.� Patient never had cscope.
I did rectal 08/22, large external hemorrhoids she does have some pinpoint pain so could also have an anal fissure.
I did discuss with her without a colonoscopy would not be able to rule out something more concerning including malignancy which can present with bright red bleed as well.� Differential can also include polyp, less likely AVM, does not seem to be
diverticular.� Patient now agreeable.
AFB positive. I discussed with pulmonology at length. She is at intermediate risk for anesthesia although of note even in a month from now she likely still be at intermediate risk as these infiltrates have been present since November. Patient states
she will not come outpatient for the colonoscopy. She is no longer requiring a negative pressure room. Cardiology has also been seeing her.
Continues to have rectal bleeding - estimates a cupful each bm with brown stool. Nitro cream helping with pain.
I discussed with patient the options of unsedated flexible sigmoidoscopy, unsedated colonoscopy, colonoscopy with propofol. Patient understands she is at intermediate risk for propofol given her underlying pulmonary condition. Patient feels she
did well with propofol with her bronchoscopy and would like to go forward with a colonoscopy with propofol. She did eat today so we will plan for the colonoscopy on Friday. She is constipated so I will give her some MiraLAX today. She states
she tolerates MiraLAX well and would prefer a MiraLAX prep to GoLytely.
Continue nitro cream. Clear liquid diet for dinner with MiraLAX tonight. Full bowel prep tomorrow. Colonoscopy on 08/27.
I cancelled her outpatient appt since cscope will now be done in the hospital and pt aware.
Original Note:
Today's Communication / Plan
-
bleeding may be fissure, hemorrhoids, stercoral colitis vs cannot excluded AVM, polyp, mass etc but denies change in bowel habit
reviewed again with patient for GI procedures with colonoscopy or flex sig as pt agreeable and would like to consider full colonoscopy option with no scopes in past
reviewed with Dr. Tapia remain intermediate risk from pulm standpoint for sedation
also reviewed with ID now off isolation
hbg stable 9.2
Continue nitro cream.
will again review with Dr. Allison for IP colon as pt states she will not return after disharge with risk(pulm status vs benefit), discussed sutab prep vs colyte though not sure if I can get sutab in hospital
will have Dr. Allison recheck HR as noted 120's this am
Appt: 09/01 at 8am with Trinh PERRY currently made will need to decide if need to cancel appt if proceeding IP for testing
Assessment / Plan
-
72 yo F pmh as below here with recurrent PNA s/p bronch.� GI consult for rectal bleeding.� She previously had constipation which has resolved with bowel regimen.� Patient never had cscope.
s/p rectal 08/[address] Allison with , large external hemorrhoids she does have some pinpoint pain so could also have an anal fissure.
-rectal bleeding
-rectal pain with concern for fissure
-ortho stasis
-LL PNA
-hx PAF
-hypothyroidism
-gait dysfunction
-hx steroid induced myopathy
PLAN:
bleeding may be fissure, hemorrhoids, stercoral colitis vs cannot excluded AVM, polyp, mass etc but denies change in bowel habit
reviewed again with patient for GI procedures with colonoscopy or flex sig as pt agreeable and would like to consider full colonoscopy option with no scopes in past
reviewed with Dr. Tapia remain intermediate risk from pulm standpoint for sedation
also reviewed with ID now off isolation
hbg stable 9.2
Continue nitro cream.
will again review with Dr. Allison for IP colon as pt states she will not return after disharge with risk(pulm status vs benefit), discussed sutab prep vs colyte though not sure if I can get sutab in hospital
will have Dr. Allison recheck HR as noted 120's this am
Appt: 09/01 at 8am with Trinh PERRY currently made will need to decide if need to cancel appt if proceeding IP for testing
Subjective
Subjective
Date of Service: August 25, 2023
still with rectal bleeding about 1 cup 2-3 times per day with red blood, on regular diet
Objective
Data Reviewed
Laboratory Data:
Laboratory Results
08/25/23 07:42
08/25/23 07:42
Laboratory Results
PT 12.6 Sec (11.4-14.6) 08/19/23 13:02
INR 0.96 08/19/23 13:02
APTT 22.9 Sec (23.4-35.0) L 08/19/23 13:02
Phosphorus 2.6 mg/dl (2.5-4.5) 08/25/23 07:42
Magnesium 2.6 mg/dl (1.6-2.3) H 08/25/23 07:42
Total Bilirubin 0.6 mg/dl (0.2-1.3) 08/25/23 07:42
AST 18 U/L (14-36) 08/25/23 07:42
ALT 19 U/L (0-35) 08/25/23 07:42
Alkaline Phosphatase 33 U/L (38-126) L 08/25/23 07:42
Lipase 318 U/L (23-300) H 08/16/23 19:17
Vital Signs and I&O:
Vital Signs
Temp Pulse Resp BP Pulse Ox
98.7 F 123 26 100/66 88
08/25/23 11:19 08/25/23 11:19 08/25/23 11:19 08/25/23 11:19 08/25/23 11:20
I&O
08/24/23 08/25/23 08/26/23
06:59 06:59 06:59
Intake Total 1200 / 1200 1800 / 1800
Balance 1200 / 1200 1800 / 1800
Physical Exam
Physical Exam
HEENT: Anicteric and Moist mucous membranes
Cardiology: Normal Sinus Rhythm
Pulmonary: Other (decrease )
GI: Soft, Non Distended and Non Tender
Extremities: No Edema and Other (legs painful to touch)
Neuro: Non Focal
[2023-08-25] MEDS: ProAmatine PO (13:47)
[2023-08-25] MEDS: CELEBREX 200 MG PO (14:15)
[2023-08-25 14:32] VITALS: BP 118/70; BP 121/71; BP 90/61; PULSE 101; PULSE 97; O2SAT 92
[2023-08-25] MEDS: NEURONTIN 600 MG PO ×2 (15:02→22:44)
[2023-08-25 15:28] VITALS: BP 109/71; BP 81/50; BP 91/59; PULSE 102; PULSE 112; PULSE 90
--- NOTE | 2023-08-25 15:46 | W.PN.PUL3 ---
Today's Communication / Plan
-
O2
Pred taper
BDs
Colonoscopy 08-27
Assessment
-
Patient is a 72 year old F with PMH significant for PAF, severe persistent asthma, hypothyroidism admitted 08/16/23 for abnormal sodium (Na =122).� Patient was admitted here Jun for Strep pneumonia.� She was discharged to [facility]'s rehab
and then admitted to [facility] with COVID.� Patient states that she then began to develop increased edema/fluid retention in the legs.� She was started on a diuretic regimen consisting of BID Lasix and daily metolazone. In the past 12 hours, she notes
worsening cough/SOB. Per daughter who provides history on the phone, this was a change that they witnessed since she's been admitted. They have requested pulmonary evaluation 08/19/23.
Symptomatic hypovolemic hyponatremia likely 2/2 over-diuresis -hyponatremia now resolved
Acute Confusion/Encephalopathy related to above - confused resolved now
Generalized weakness
Chronic cough, nonproductive
Acute on chronic SOB -likely due to RODRIGUEZ
Urinary retention s/p Alicia
Severe persistent asthma requiring biologic therapy now with acute exacerbation
LLL consolidation - chronic since November 2022 (unknown if present prior to that as we do not have imaging before that time)
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
Adm Jul 2023 for Strep PNA with AE asthma
Adm November 2022: acute hypoxemic respiratory failure, CAP LLL infiltrate, markedly ^PCT, asthma exacerbation. Completed 5d cefepime
Severe asthma, on daliresp, fluticasone, montelukast, salmeterol
Follows up at [facility] and [facility]
Monoclonal B-cell lymphocytosis
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
AFib s/p ablation
Hypothyroidism
Hysterectomy
R hip replacement
Cataract surgery
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
Seasonal allergies
Intermittent epistaxis, historically L>>>R
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
Allergy to azithromycin
DNR
Plan
Titrate O2 flow rate to keep SpO2 >90-94%
No prior history of O2 use at home
08-25: walked 70 ft, POx RA 94% down to 92% with ambulation
She has prior history of severe persistent asthma, being managed by Dr Neely.
She was recently on a prednisone taper after Jul adm. She does feel better with oral steroid dosing.
Recent spirometry as outpatient demonstrating poor effort/cough throughout, but FEV1 1.63L 73%.
Continue OCS with wean as tolerated, currently at 20 mg pred qd since 08-23(was on 30 mg qd upon adm, on a slow taper to off)
Continue fluticasone/serevent bid
Continue levalbuterol HFA/nebs prn
Suspect patient has acute on chronic SOB due to recent episodes of strep PNA followed by COVID with deconditioning and CHF
CXR 08/19/23 showing L basilar atelectasis but not significantly changed from prior, never had chest CT.
We will obtain repeat PFT/6MWT to compare to prior done as OP if there is a change
Repeat PFT showing decline but still within moderate range
6MWT pending
Other imaging reviewed, CT Chest obtained showing LLL consolidation, there is small-mod pericardial effusion
s/p bronch with BAL on 08/22 -growing AFB, suspected to be RODRIGUEZ. Follow-up sensitivities. Follow-up fungus and bacterial culture
Antibiotics as per ID --> cefepime changed to cefdinir and to continue for 4 additional days through 08-28
ECHO results in past reviewed--stable function
Repeat ECHO on 08/20/2023 shows normal biventricular function
proBNP--none obtained
Careful resumption of diuresis per team
Urinary retention issues noted
Follow up with GI given rectal bleeding with a downtrending Hb
Considering AFB is likely due to RODRIGUEZ and patient not having any hemoptysis and O2 requirement seems stable, pulm aranda considered at intermediate-high risk for colonoscopy or sigmoidoscopy
TT Dr Allison and GI FRAME CHANGER 08-25, decided for colonoscopy as inpatient on 08-27
Will need outpatient pulmonary evaluation in our office for PFTs and 6MWT
Diagnostic Data
CXR 08/19/23- LLL atelectasis
CXR 07/10/23- IMPRESSION: There is consolidation in the left lower lobe consistent with improving pneumonia along with a left pleural effusion. There is probable atelectasis in the right lower lobe.
CXR 07-05-23: Progressed findings suggesting mild left lower lobe pneumonia; New moderate right lower lobe probable atelectasis; Mild cardiomegaly. Stable
CXR 07-03-23 c/w November 15 and . Baseline films with improved LLL infiltrate but persistently blurred L diaphragm. Current films without gross infiltrates but suspicious for positive spine sign at L base
CT Chest 08/20/23: Left base consolidation and/or atelectasis, small amount of right base atelectasis with shift of the mediastinum toward the left. No discrete mediastinal or hilar mass identified however repeat imaging with IV contrast after
treatment is recommended to exclude an occult process. Small bibasilar pleural effusions. Small to moderate amount of pericardial effusion.
Spirometry 08/20/22: FEV1 1.21L 54%, FVC 1.46L 49%, ratio 83. Post FEV1 1.27L 57% no BD response. (mixed pattern, moderately reduced, decreased from prior testing but remains in moderate category)
PFT:
Spirometry 05/23/2023: FEV1/FVC 82%, FEV1 1.63 L-73%, FVC 1.97 L, 66%.� No airflow obstruction.� Patient has difficulty with the maneuvers due to coughing.
[place] 12/17/22: unable.
6 MWT:
6MWT 12/17/22: At rest, O2 99% on room air, heart rate 82. With ambulation, O2 remained at 99 to 100% on room air, max heart rate 90. 5/10 on dyspnea scale. Only able to ambulate 150 feet
ECHO 07/08/23- �LV ejection fraction is 60-65%, by visual assessment. No regional wall motion�abnormalities are seen.�Normal right ventricular size and function.�No significant valvular disease.�No prior study available for comparison.
Subjective Data
-
Date of Service:
Date of Service: August 25, 2023
Chief Complaint: Pulmonary Follow Up
Subjective:
No resp events reported
Followed by GI, for colonoscopy 08-27
Review of Systems
General: Fever (n), Sweats (n), Chills (n) and Satisfactory Appetite
Cardiopulmonary: Dyspnea (n), Cough, Sputum Production (n) and Wheezing
GI: Abdominal Pain (n), Nausea and Vomiting (n)
Neuro: Weakness
Objective Data
Data Reviewed
Vital Signs / I&O / Oxygen:
Vital Signs
Temp Pulse Resp BP Pulse Ox
99 F 86 20 133/83 95
08/25/23 15:28 08/25/23 13:47 08/25/23 15:28 08/25/23 13:47 08/25/23 15:28
Intake and Output
08/24/23 08/25/23 08/26/23
06:59 06:59 06:59
Intake Total 1200 / 1200 1800 / 1800 180 / 180
Balance 1200 / 1200 1800 / 1800 180 / 180
SaO2 95
Nasal Cannula flow liters per 3
minute
Physical Exam
General: Comfortable and Other (NAD, deconditioned)
HEENT: Normocephalic, Anicteric and Moist Mucous Membranes
Cardiovascular: S1-S2, Regular Rhythm, JVD, Peripheral Edema (negative) and Calf Tenderness (n)
Respiratory: Wheeze (negative), Crackles (left base), Rhonchi (negative), Non-Labored Respirations and Stridor (negative)
GI: Soft, Non Distended, Non Tender and Normal Bowel Sounds
Neurology: AO x 3 and No Motor Deficits
Skin: Warm, Dry and Good Color
Labs/Micro/Reports
Lab Data
08/25/23 07:42
08/25/23 07:42
Microbiology
08/22/23 09:56 Bronch Left Upper Lobe Fungal Culture - Preliminary
Culture in progress.
Positive cultures are reported as soon as detected.
Final report to follow in four to five weeks.
08/22/23 09:56 Bronch Left Lower Lobe Fungal Culture - Preliminary
Yeast
08/22/23 09:56 Bronch Left Lower Lobe Acid Fast Bacilli Smear - Preliminary
08/22/23 09:56 Bronch Left Lower Lobe Acid Fast Bacilli Culture - Preliminary
Acid fast bacilli
08/22/23 09:56 Bronch Left Lower Lobe Specimen Source - Final
08/22/23 09:56 Bronch Left Lower Lobe Mycobacterium tuberculosis DNA (PCR - Final
08/22/23 09:56 Bronch Left Lower Lobe M. tuberculosis Rifampin (PCR) - Final
08/22/23 09:56 Bronch Left Lower Lobe M. tuberculosis Complex Interpretat - Final
08/19/23 16:02 Blood/Venous Blood Culture - Final
No Growth - Final Report
08/22/23 09:56 Bronch Left Upper Lobe Acid Fast Bacilli Smear - Preliminary
08/22/23 09:56 Bronch Left Upper Lobe Acid Fast Bacilli Culture - Preliminary
Acid fast bacilli
08/19/23 13:02 Blood/Venous Blood Culture - Final
No Growth - Final Report
08/22/23 09:56 Bronch Left Upper Lobe Respiratory Culture - Final
Usual Respiratory Kayla
08/22/23 09:56 Bronch Left Upper Lobe Gram Stain - Final
08/22/23 09:56 Bronch Left Lower Lobe Respiratory Culture - Final
Usual Respiratory Kayla
08/22/23 09:56 Bronch Left Lower Lobe Gram Stain - Final
08/21/23 11:11 Sputum Respiratory Culture - Final
Usual Respiratory Kayla
08/21/23 11:11 Sputum Gram Stain - Final
[2023-08-25] MEDS: VITAMIN C 500 MG PO (17:58)
[2023-08-25] MEDS: MIRALAX 51 GRAMS PO (17:59)
[2023-08-25 19:19] VITALS: BP 118/78
[2023-08-25] MEDS: CYMBALTA DELAYED RELEASE 60 MG PO (20:07)
[2023-08-25] MEDS: ESTRACE 0.01% VAGINAL CREAM VAG (22:37)
[2023-08-25] MEDS: SINGULAIR 10 MG PO (22:39)
[2023-08-25] MEDS: DALIRESP 500 MCG PO (22:39)
[2023-08-25] MEDS: XANAX 0.5 MG PO (23:30)
[2023-08-26] VITALS (10 sets, daily range): BP systolic 101–141; BP diastolic 60–84; PULSE 58–89; O2SAT 96; BMI 21.4
[2023-08-26] MEDS: SYNTHROID 125 MCG PO (06:33)
[2023-08-26] MEDS: NEURONTIN 600 MG PO ×3 (06:33→21:29)
[2023-08-26 07:26] LABS: Hematocrit 28.9 % (37.0-47.0); Hemoglobin 9.6 g/dL (12.0-16.0); Mean Corp Hgb Conc. 33.2 g/dL (33.0-37.0); Mean Corpuscular Hgb 32.4 pg (27.0-31.0); Mean Corpuscular Volume 97.6 fL (81.0-99.0); Mean Platelet Volume 9.2 fL (7.4-10.4); Platelet Count 259 10^3/uL (130-400); Red Blood Cell Count 2.96 10^6/uL (4.20-5.40); Red Cell Dist. Width 14.4 % (11.5-14.5); White Blood Cell Count 11.7 10^3/uL (4.8-10.8)
--- NOTE | 2023-08-26 07:28 | W.PN.HOSP.TC ---
Today's Communication/Plan
-
antibiotics as per ID
bowel prep as per GI, NPO after midnight for colonoscopy
cont midodrine
pain control
monitor H&H
Hematology Eval
Assessment / Plan
Assessment / Plan
Physical Exam
General: Not in acute distress -
HEENT: Normocephalic, Atraumatic
Respiratory: mild wheezing
Cardiac: Regular Rhythm and S1/S2
GI: Soft, Nontender and Nondistended. Positive bowel sounds.
Musculoskeletal: No Clubbing, No Cyanosis and No Edema

CT Head without IV contrast appreciated No acute intracranial abnormality
CT Chest W/o Iv Contrast appreciated Left base consolidation and/or atelectasis, small amount of right base atelectasis with shift of the mediastinum toward the left. Limited exam without IV contrast. No discrete mediastinal or hilar mass
identified however repeat imaging with IV contrast after treatment was recommended to exclude an occult process. Small bibasilar pleural effusions. Small to moderate amount of pericardial effusion
ECHO appreciated
Normal biventricular size and systolic function without regional wall motion
abnormality.
No significant valvular disease.
No prior study available for comparison
Assessment/Plan
Symptomatic Hypovolemic Hyponatremia related to over-diuresis. Feels weak, unable to walk, feels confused
- Hold metolazone
- Resumed Lasix 40 mg 08/22/23 daily as opposed to BID as was her home regimen prior later discontinued as per cardio recommendations
- Celebrex initially held, resumed as below
- IVF completed
- Na improved 130s
- Okay to continue Duloxetine
Acute Confusion/Encephalopathy - Resolved
Generalized Weakness Below Baseline
Left Lower Lobe Consolidation on CT Imaging
Left Lower Lobe Atelectasis
Suspected COPD Exacerbation
Cough, Rhonchi
-UA (urine culture with no growth), Influenza (negative), COVID (negative), Ammonia (low), Coagulation Studies (okay), Serum osmoles (okay), Blood cultures (no growth to date), TSH (low but T4 wnl - outpatient follow up), Vitamin B12 (high)
-Cortisol (in the morning) was low at 1.3 -- likely suppression d/t steroids
-CT Head unremarkable
-Thiamine 100 mg PO daily
Small bibasilar pleural effusions
Small to moderate amount of pericardial effusion
-Cardiology consulted, recommendations appreciated
-Echocardiogram ordered, results are above
-On echo, pericardial effusion is trivial
Orthostatic Hypotension
Dizziness/Lightheadedness on Standing
-patient not tolerating abd binder, has been using TEDs only
-cardio consult appreciated, midodrine increased to 10 mg TID, cardizem and lasix discontinued, compression to be increased
Bright red blood through vagina and rectal areas
Bright Red Blood Per Rectum on 08/21/23
-Monitor Hgb
-Consulted GI, recommendations appreciated: patient has never had a colonoscopy,
-cscope tentatively planned for 08/27, bowel prep as per GI
-outpatient OBGYN follow up
Normocytic Anemia
Anemia of Chronic Disease
Patient reports remote history adverse rxn blood transfusion hives all over
Monoclonal B cell lymphocytosis
-Iron Studies appreciated AOCD with Iron level wnl
-Vit B12 non-deficient
-Hematology Eval Appreciated
Hypokalemia resolved at this time
-monitor and replete as necessary
Chronic dean catheter, requires Flomax
Recent Urethral Bleeding from a Urinary Catheter
Uretheral Prolapse
Bladder Spasms
Reported urinary clots
-Urology consult appreciated, cont outpt follow up with her urologist at [facility]
-Suspected atrophic vaginitis, Estrace cream started, vaginal bleeding since resolved, outpt obgyn follow up
Severe COPD
Prior history of severe persistent asthma
Chronic Hypoxic Respiratory Failure
Acute on chronic SOB due to recent episodes of strep PNA followed by COVID with deconditioning and CHF
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
-Recent admissions for Strep pneumonia and COVID
-Patient alternates 6 weeks coarse of doxycycline and Ceftin - Currently on doxycycline
-Continue prednisone as prior to admission, currently tapering down 10mg every 5 days to baseline 5mg
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
-tapered from 30 mg to 20 mg starting 08/24
-Continue Daliresp
-Continue fluticasone and salmeterol
-Continue levalbuterol prn
-Pulm eval appreciated
-Bronchoscopy performed on 08/22/23: follow bronchoalveolar lavage and cultures results acid fast bacilli positive pending speciation, PCR for TB however neg
-Infectious Disease consulted appreciated, Cefepime converted to cefdinir, no need for isolation/quarantine at this time.
Paroxysmal Atrial Fibrillation s/p Ablation
-Patient is not on anticoagulation as outpatient
-Continue diltiazem discontinued as above
Sacrum Healing Stage 3 pressure injury, POA
-Continue wound care
Anxiety/Depression
Continue Duloxetine and alprazolam
Hypothyroidism
-Continue levothyroxine
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
-Continue gabapentin and duloxetine
-Gabapentin at max dose 1800 mg at 3 divided doses for her Cr clearance, considering transition to pregabalin if pain control remains insufficient
Arthritis
-home celecoxib resumed 08/25 discussed with patient regarding potential risk hyponatremia tamie worsening GI bleed, patient able to verbalize her understanding of potential risk and requests to resume given the potential benefit with regards to
resolution/improvement arthritic pain
Environment/Seasonal Allergies
-Continue fexofenadine and montelukast
History of Steroid-Induced Myopathy
PT/OT appreciated Rehab vs Home PT
DVT proph: (Previously Lovenox discontinued due to Bleeding as above) TERRI stockings, SCD ordered
GI ppx: protonix
Code Status: DNR/DNI
I spent a total of 55 minutes with the patient or on the floor. More than 50% of this time involved counseling and coordination of care.
Anticipated Discharge: 24 - 48 hours
Subjective/Interval History
-
Date of Service: August 26, 2023
No acute distress resting comfortably in bed. Continues to report neuropathic and arthritic pain.
Objective Data
-
Labs:
Laboratory Results
08/26/23
06:40
WBC 11.7 H
Hgb 9.6 L
Hct 28.9 L
Plt Count 259
Sodium Pending
Potassium Pending
Chloride Pending
Carbon Dioxide Pending
BUN Pending
Creatinine Pending
Glucose Pending
Calcium Pending
Total Bilirubin Pending
AST Pending
ALT Pending
Alkaline Phosphatase Pending
Vital Signs:
Vital Signs
Temp Pulse Resp BP Pulse Ox
97.8 F 83 16 111/84 96
08/26/23 03:46 08/26/23 03:46 08/26/23 03:46 08/26/23 03:46 08/26/23 04:40
I&O
08/25/23 08/26/23 08/27/23
06:59 06:59 06:59
Intake Total 1800 / 1800 420 / 420
Balance 1800 / 1800 420 / 420
[2023-08-26] MEDS: NON-FORMULARY ITEM 2 INH INH ×2 (07:57→20:03)
[2023-08-26] MEDS: NON-FORMULARY ITEM 1 UNIT INH ×2 (07:57→20:03)
[2023-08-26] MEDS: XOPENEX HFA 45 MCG INHALER 1 PUFF INH (07:58)
[2023-08-26 08:12] LABS: ALT (SGPT) 20 U/L (0-35); AST (SGOT) 19 U/L (14-36); Albumin 2.8 g/dl (3.5-5.0); Alkaline Phosphatase 37 U/L (38-126); Blood Urea Nitrogen 12 mg/dl (7-17); Calcium 8.8 mg/dl (8.4-10.2); Carbon Dioxide 36 mmol/L (22-30); Chloride 103 mmol/L (98-107); Estimated Creatinine Clearance 74 ml/min; Glucose 71 mg/dl (70-99); Magnesium 2.6 mg/dl (1.6-2.3); Phosphorus 2.9 mg/dl (2.5-4.5); Potassium 4.5 mmol/L (3.5-5.1); Sodium 137 mmol/L (135-145); Total Bilirubin 0.7 mg/dl (0.2-1.3); Total Protein 4.6 g/dl (6.3-8.2); eGFR > 60.00
--- NOTE | 2023-08-26 08:29 | W.PN.GI.CBS2 ---
Addendum entered and electronically signed by Marley Bobo Do, MD 08/26/23 13:25:
I saw and examined the patient.
The INGOT CASTER's note was reviewed and I agree with the note.
Comment: She drank some miralax prep yesterday. Stool still with solid in it. Vitals stable exam NTTP, hypopigmented legs bilaterally. Labs with stable Hbg
Recommendations
- C/w miralax prep today for colonoscopy tomorrow.
- C/w nitro [place] cream
- CLD and NPO at [place]
Will follow with you
Original Note:
Today's Communication / Plan
-
Bowel prep for Colonoscopy 08/27/23
Assessment / Plan
-
72 yo F pmh as below here with recurrent PNA s/p bronch.� GI consult for rectal bleeding.� She previously had constipation which has resolved with bowel regimen.� Patient never had cscope.
s/p rectal 08/[address] Allsion with , large external hemorrhoids she does have some pinpoint pain so could also have an anal fissure.
-rectal bleeding
-rectal pain with concern for fissure
-ortho stasis
-LL PNA
-hx PAF
-hypothyroidism
-gait dysfunction
-hx steroid induced myopathy
PLAN:
bleeding may be fissure, hemorrhoids, stercoral colitis vs cannot excluded AVM, polyp, mass etc but denies change in bowel habit
reviewed again with patient for GI procedures with colonoscopy or flex sig as pt agreeable and would like to consider full colonoscopy option with no scopes in past. This is scheduled for tomorrow 08/27 with 2 day prep.
Patient will only do Miralax prep as she states she will vomit with GoLytely. She is aware to let nurses know if she is not clear and we may need to postpone procedure until if not clear. Patient aware.
reviewed with Dr. Tapia remain intermediate risk from pulm standpoint for sedation
also reviewed with ID now off isolation
hbg stable 9.6
Continue nitro cream.
Appt: 09/01 at 8am with Trinh PERRY currently made will need to decide if need to cancel appt if proceeding IP for testing
Subjective
Subjective
Date of Service: August 26, 2023
Patient had large BM this am after 3 doses of Miralax last pm. She also saw some red blood in this as well. Denies any abdominal pain. Hgb stable. Tolerating clear liquid diet (no red). Agreeable for colonoscopy tomorrow.
Objective
Data Reviewed
Laboratory Data:
Laboratory Results
08/26/23 06:40
08/26/23 06:40
Laboratory Results
PT 12.6 Sec (11.4-14.6) 08/19/23 13:02
INR 0.96 08/19/23 13:02
APTT 22.9 Sec (23.4-35.0) L 08/19/23 13:02
Phosphorus 2.9 mg/dl (2.5-4.5) 08/26/23 06:40
Magnesium 2.6 mg/dl (1.6-2.3) H 08/26/23 06:40
Total Bilirubin 0.7 mg/dl (0.2-1.3) 08/26/23 06:40
AST 19 U/L (14-36) 08/26/23 06:40
ALT 20 U/L (0-35) 08/26/23 06:40
Alkaline Phosphatase 37 U/L (38-126) L 08/26/23 06:40
Lipase 318 U/L (23-300) H 08/16/23 19:17
Vital Signs and I&O:
Vital Signs
Temp Pulse Resp BP Pulse Ox
97.8 F 76 20 120/75 97
08/26/23 07:00 08/26/23 07:00 08/26/23 07:00 08/26/23 07:00 08/26/23 07:00
I&O
08/25/23 08/26/23 08/27/23
06:59 06:59 06:59
Intake Total 1800 / 1800 420 / 420
Balance 1800 / 1800 420 / 420
Physical Exam
Physical Exam
HEENT: Anicteric
Cardiology: Normal Sinus Rhythm
Pulmonary: Other (scattered expiratory wheezes)
GI: Soft, Non Distended, Non Tender and Normal Bowel Sounds
Extremities: No Edema
Neuro: Non Focal
[2023-08-26] MEDS: XOPENEX 0.63 MG INHALANT SOLUTION 0.630000000000000004 MG INH ×3 (08:40→20:03)
--- NOTE | 2023-08-26 09:29 | CON.ONC ---
Addendum entered and electronically signed by Trinh Garnica MD 08/26/23 12:06:
in addition, will check hemolysis panel, though unlikely w/ normal bilirubin
Original Note:
Impression
Impression
Symptomatic Hypovolemic Hyponatremia related to over-diuresis.
Generalied Weakness Below Baseline
Left Lower Lobe Consolidation on CT Imaging
Left Lower Lobe Atelectasis
Small bibasilar pleural effusions
Small to moderate amount of pericardial effusion
Orthostatic Hypotension
Bright red blood through vagina and rectal areas
Bright Red Blood Per Rectum on 08/21/23
Normocytic Anemia
Paroxysmal Atrial Fibrillation s/p Ablation
Monoclonal B call lymphocytosis
History of Steroid-Induced Myopathy
Plan
Plan
-Normocytic anemia
- checking retic count and haptoglobin
- Normal platelet count
- Hb increased from 9.3 to 9.6
- H/o one blood transfusion intolerant, developed hives
- Intolerant to IVIg transfusions in the past
- checking IgG, IgM, IgE, leukemia/lymphoma phenotyping
- If HB <7 then premedication with tylenol, benedryl prior to blood transfusion
Patient History
History of Present Illness
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 for strep pneumonia bacteremia secondary to left basilar community-acquired pneumonia, recently on's IV steroids transition to oral steroids, also with episode of SVT during that hospitalization when on steroids started on diltiazem she was
at [facility] from 07/03/2023 to 07/14/2023.� She was discharged to [facility] rehab.� She was there for 1 week and then subsequently got COVID and was admitted to [facility] for 1 week and then transferred back to
[facility] rehab.� She was home for 1 week and then started feeling short of breath with intermittent coughing without sputum production.� She started having lower extremity edema and was started on Lasix 40 mg twice a day as well as
metolazone 2.5 mg daily.� She was found to have hyponatremia on outside lab work, slight confusion and was sent to the emergency room for further evaluation on 08/16/2023.� Patient also found to have a left lower lobe consolidation.� She had
bronchoscopy yesterday. � Also being seen by infectious disease.� We are asked to evaluate about the blood transfusion history which the patient had 40 years ago during child . Patient was intolerant to the transfusion and developed hives, the
transfusion was immediately stopped. She cannot recall much. She denies any other blood or platelet transfusion after that one event. She did have IVIg transfusions for treatment of CLL which were intolerant as well. She was given steroids and
benedryl to make the treatment tolerable.
Past-Medical/Surgical History
ED Past Medical History: Arrthythmia (afib), COPD, Hypothyroidism and Other (Monoclonal B-cell lymphocytosis)
ED Past Surgical History: Cardiac (Cardiac ablation for A-fib), Gynecological (Hysterectomy), Orthopedic (Microdiscectomy, right hip replacement) and Other (Cataract)
Patient Medication
Medication Instructions Recorded Confirmed Last Taken Type
azelastine 137 mcg (0.1 %) nasal 1 spray intranasal DAILY Allergies 11/20/22 08/17/23 08/16/23 History
spray aerosol
celecoxib 200 mg capsule 200 mg PO BID Pain 11/20/22 08/17/23 08/16/23 12:30 History
fexofenadine 180 mg tablet 180 mg PO DAILY Allergies 11/20/22 08/17/23 08/16/23 History
fluticasone propionate 50 2 spray intranasal BID Allergies 11/20/22 08/17/23 08/16/23 History
mcg/actuation nasal
spray,suspension
gabapentin 300 mg capsule 300 mg PO HS Pain 11/20/22 08/17/23 08/15/23 History
gabapentin 600 mg tablet 600 mg PO TID@0700,1500,2200 Pain 11/20/22 08/17/23 08/16/23 16:30 History
krill oil 1 cap PO DAILY Supplement 11/20/22 08/17/23 08/16/23 12:30 History
levothyroxine 112 mcg tablet 112 mcg PO MOWEFR@07 Thyroid 11/20/22 08/17/23 08/15/23 History
levothyroxine 125 mcg tablet 125 mcg PO SUTUTHSA@07 Thyroid 11/20/22 08/17/23 08/16/23 History
montelukast 10 mg tablet 10 mg PO HS Lung/breathing issues 11/20/22 08/17/23 08/15/23 History
doxycycline hyclate 100 mg capsule 100 mg PO BID #60 caps 11/25/22 08/17/23 08/16/23 12:30 Rx
Citracal plus D 1 tab PO BID Supplement 07/03/23 08/17/23 08/16/23 12:30 History
ascorbic acid (vitamin C) 500 mg 500 mg PO QPM Supplement 07/03/23 08/17/23 08/15/23 History
tablet (Vitamin C)
cefuroxime axetil 500 mg tablet 500 mg PO BID Infection 07/03/23 08/16/23 Unknown History
cholecalciferol (vitamin D3) 25 25 mcg PO .4 TIMES A WEEK@1700 07/03/23 08/17/23 Unknown History
mcg (1,000 unit) tablet Supplement
cyanocobalamin (vitamin B-12) 500 mcg PO DAILY Supplement 07/03/23 08/17/23 08/16/23 History
1,000 mcg tablet
duloxetine 30 mg capsule,delayed 30 mg PO DAILY Depression 07/03/23 08/17/23 08/16/23 12:30 History
release
fluticasone furoate 200 2 inh inhalation R BID 07/03/23 08/17/23 Unknown History
mcg/actuation blister powder for Lung/Breathing Issues
inhalation
levalbuterol tartrate 45 1 puff inhalation R Q8HPRN PRN sob 07/03/23 08/17/23 Unknown History
mcg/actuation aerosol inhaler
roflumilast 500 mcg tablet 500 mcg PO HS Lung/Breathing Issues 07/03/23 08/17/23 08/15/23 History
(Daliresp)
salmeterol 50 mcg/dose blister 1 inh inhalation R BID 07/03/23 08/17/23 08/16/23 12:30 History
powder for inhalation (Serevent Lung/Breathing Issues
Diskus)
turmeric 400 mg capsule 400 mg PO BID Supplement 07/03/23 08/17/23 08/16/23 12:30 History
alprazolam 0.5 mg tablet 0.5 mg PO HS #3 tabs 07/12/23 08/17/23 08/15/23 Rx
levalbuterol HCl 1.25 mg/3 mL 1.25 mg (3 mL) inhalation R Q6HPRN 07/12/23 08/17/23 08/15/23 Rx
solution for nebulization PRN sob/wheeze #0 mL
diltiazem HCl 30 mg tablet 30 mg PO TID Blood Pressure 08/16/23 08/17/23 08/16/23 16:30 History
furosemide 40 mg tablet (Lasix) 40 mg PO BID@0800,1600 Fluid 08/16/23 08/23/23 08/15/23 07:00 History
Retention/Swelling
metolazone 2.5 mg tablet 2.5 mg PO DAILY Fluid 08/16/23 08/16/23 Unknown History
Retention/Swelling
midodrine 2.5 mg tablet 2.5 mg PO DAILY@1400 Blood Pressure 08/16/23 08/17/23 08/16/23 16:30 History
midodrine 5 mg tablet 5 mg PO DAILY Blood Pressure 08/16/23 08/17/23 08/16/23 07:00 History
phenazopyridine 100 mg tablet 100 mg PO TID Urinary Issue 08/16/23 08/17/23 08/16/23 12:30 History
(Pyridium)
prednisone 10 mg tablet 30 mg PO DAILY Anti-Inflammatory 08/16/23 08/17/23 08/16/23 12:30 History
Fluticasone Propionate (Flixotide) 2 inh inhalation R BID 08/17/23 08/17/23 08/16/23 History
Lung/Breathing Issues
Tylenol Arthritis 1,300 PO BID Pain 08/17/23 08/16/23 16:30 History
benzonatate 100 mg capsule 200 mg PO TID Cough 08/17/23 08/17/23 08/16/23 14:00 History
duloxetine 60 mg PO QPM Depression 08/17/23 08/17/23 08/15/23 History
tamsulosin 0.8 mg PO DAILY Urinary Issue 08/17/23 08/23/23 08/16/23 06:00 History
Active Medications
Generic Name Dose Route Start Last Admin
Trade Name Freq PRN Reason Stop Dose Admin
Acetaminophen 650 mg 08/16/23 23:07 08/25/23 23:30
Acetaminophen 325 Mg Tablet PO 09/13/23 23:06 650 mg
Q4HPRN PRN Administration
mild pain/ fever>100.5F
Alprazolam 0.5 mg 08/16/23 23:07 08/25/23 23:30
Alprazolam 0.5 Mg Tablet PO 09/13/23 23:06 0.5 mg
HS PRN Administration
anxiety
Ascorbic Acid 500 mg 08/18/23 18:00 08/25/23 17:58
Ascorbic Acid 500 Mg Tablet PO 09/15/23 17:59 500 mg
QPM NIESHA Administration
Benzonatate 100 mg 08/17/23 01:40 08/25/23 23:37
Benzonatate 100 Mg Capsule PO 09/14/23 01:39 100 mg
TIDPRN PRN Administration
cough
Calcium/Vitamin D 500 mg 08/23/23 08:00 08/25/23 20:06
Calcium Carbonate 500 Mg/Vitamin D 5 Mcg (200 Units) Tablet PO 09/20/23 07:59 500 mg
BID NIESHA Administration
Cefdinir 300 mg 08/24/23 20:00 08/25/23 20:06
Cefdinir 300 Mg Capsule PO 300 mg
Q12 NIESHA Administration
Celecoxib 200 mg 08/26/23 08:00
Celecoxib 200 Mg Capsule PO 09/23/23 07:59
BID NIESHA
Cholecalciferol 25 mcg 08/19/23 17:00 08/24/23 17:37
Cholecalciferol (Vitamin D3) 25 Mcg Tablet (1,000 Units) PO 09/16/23 16:59 25 mcg
SuTuThSa@1700 NIESHA Administration
Compound Med 0 unit 08/22/23 17:00 08/25/23 20:13
Nitroglycerin 0.2% In Aquaphor TOPICAL 09/19/23 16:59 1 unit
BID NIESHA Administration
Cyanocobalamin 500 mcg 08/18/23 16:00 08/25/23 09:41
Cyanocobalamin 1,000 Mcg Tablet PO 09/15/23 15:59 500 mcg
DAILY NIESHA Administration
Diltiazem HCl 30 mg 08/17/23 06:27 08/24/23 14:45
Diltiazem 30 Mg Regular Release Tablet PO 09/13/23 23:06 Not Given
TID@0600,1400,2200 NIESHA
Duloxetine HCl 30 mg 08/18/23 08:00 08/25/23 09:41
Duloxetine Delayed Release 30 Mg Capsule PO 09/15/23 07:59 30 mg
DAILY NIESHA Administration
Duloxetine HCl 60 mg 08/18/23 20:00 08/25/23 20:07
Duloxetine Delayed Release 60 Mg Capsule PO 09/15/23 19:59 60 mg
DAILY@2000 NIESHA Administration
Estradiol 0 applic 08/22/23 22:00 08/25/23 22:37
Estradiol 0.01% (Vaginal Cream) 42.5 Gram Tube VAG 09/19/23 21:59 Not Given
HS NIESHA
Gabapentin 600 mg 08/25/23 15:00 08/26/23 06:33
Gabapentin 300 Mg Capsule PO 09/22/23 14:59 600 mg
TID@0700,1500,2200 NIESHA Administration
Levalbuterol 1 puff 08/17/23 06:09 08/26/23 07:58
Pom Levalbuterol 45 Mcg Inhaler INH 09/14/23 06:08 1 puff
R Q8HPRN PRN Administration
sob
Protocol
Levalbuterol HCl 0.63 mg 08/19/23 09:17 08/26/23 08:40
Levalbuterol 0.63 Mg/3 Ml Ampul INH 09/16/23 09:16 0.63 mg
R Q6HPRN PRN Administration
SOB/WHEEZING
Levothyroxine Sodium 125 mcg 08/17/23 07:00 08/26/23 06:33
Levothyroxine 125 Mcg Tablet PO 09/14/23 06:59 125 mcg
SUTUTHSA@07 NIESHA Administration
Levothyroxine Sodium 112 mcg 08/18/23 07:00 08/25/23 06:20
Levothyroxine 112 Mcg Tablet PO 09/15/23 06:59 112 mcg
MOWEFR@07 NIESHA Administration
Midodrine 10 mg 08/24/23 18:00 08/25/23 17:55
Midodrine 5 Mg Tablet PO 09/21/23 17:59 10 mg
TID@0800,1300,1800 NIESHA Administration
Montelukast Sodium 10 mg 08/16/23 23:07 08/25/23 22:39
Montelukast Sodium 10 Mg Tablet PO 09/13/23 23:06 10 mg
HS NIESHA Administration
Pom Azelastine 1 spray 08/17/23 08:00 08/25/23 09:43
137 Mcg (0.1 %) NASAL 09/14/23 07:59 1 spray
[place] DAILY NIESHA Administration
Pom Fluticasone 2 spray 08/17/23 08:00 08/25/23 20:10
Propionate 50 Mcg/ NASAL 09/14/23 07:59 2 spray
Actuation [place] BID NIESHA Administration
Pom Fluticasone 2 inh 08/17/23 11:15 08/26/23 07:57
Propionate ( INH 09/14/23 07:59 2 inh
Flixotide) 250 Mcg R BID NIESHA Administration
Inhaler
Pom Severent 0 unit 08/17/23 11:16 08/26/23 07:57
Inhaler 50 Mcg 1 INH 09/14/23 07:59 1 unit
Inhalation Bid R BID NIESHA Administration
Pom Lillie 0 unit 08/17/23 16:00 08/25/23 09:47
180 Mg Tablet PO 09/14/23 15:59 1 unit
DAILY NIESHA Administration
Pantoprazole Sodium 40 mg 08/23/23 09:00 08/25/23 09:41
Pantoprazole 40 Mg Delayed Release Tablet PO 09/20/23 08:59 40 mg
DAILY NIESHA Administration
Phenazopyridine HCl 100 mg 08/16/23 23:07 08/25/23 22:39
Phenazopyridine 100 Mg Tablet PO 09/13/23 23:06 100 mg
TID NIESHA Administration
Polyethylene Glycol 17 grams 08/17/23 14:33 08/25/23 06:14
Polyethylene Glycol Powder 17 Grams Packet PO 09/14/23 14:32 17 grams
DAILY PRN Administration
CONSTIPATION
Polyethylene Glycol 51 grams 08/26/23 16:00
Polyethylene Glycol Powder 17 Grams Packet PO 08/26/23 22:01
TODAY@1600,1800,2200 NIESHA
Potassium Chloride 20 meq 08/17/23 15:00 08/25/23 09:41
Potassium Chloride 20 Meq Extended Release Tablet PO 09/14/23 14:59 20 meq
DAILY NIESHA Administration
Prednisone 20 mg 08/23/23 08:29 08/25/23 09:41
Prednisone 10 Mg Tablet PO 09/14/23 07:59 20 mg
DAILY NIESHA Administration
Roflumilast 500 mcg 08/16/23 23:07 08/25/23 22:39
Roflumilast (Daliresp) 500 Mcg Tablet PO 09/13/23 23:06 500 mcg
HS NIESHA Administration
Sodium Chloride 0 flush 08/16/23 23:00 08/23/23 05:30
Sodium Chloride 0.9% (Flush) Syringe IV 09/13/23 22:59 1 flush
PER PROTOCOL NIESHA Administration
Tamsulosin HCl 0.8 mg 08/18/23 08:00 08/25/23 06:19
Tamsulosin 0.4 Mg Capsule PO 09/15/23 07:59 0.8 mg
DAILY NIESHA Administration
Thiamine HCl 100 mg 08/19/23 13:00 08/25/23 09:42
Thiamine 100 Mg Tablet PO 09/16/23 12:59 100 mg
DAILY NIESHA Administration
Review of Systems
-
History Source: Patient
Constitutional: Reports No Symptoms
EENT: Reports No Symptoms
Respiratory: Reports Cough
Cardiac: Reports Palpitations
GI: Reports No Symptoms
Physical Exam
-
Cardiology: Irregular Rate/Rhythm and Murmur
Pulmonary: Other (decreased breath sound in b/l lower lobes )
Labs
Lab Results
WBC 11.7 10^3/uL (4.8-10.8) H 08/26/23 06:40
RBC 2.96 10^6/uL (4.20-5.40) L 08/26/23 06:40
Hgb 9.6 g/dL (12.0-16.0) L 08/26/23 06:40
Hct 28.9 % (37.0-47.0) L 08/26/23 06:40
MCV 97.6 fL (81.0-99.0) 08/26/23 06:40
MCH 32.4 pg (27.0-31.0) H 08/26/23 06:40
MCHC 33.2 g/dL (33.0-37.0) 08/26/23 06:40
RDW 14.4 % (11.5-14.5) 08/26/23 06:40
Plt Count 259 10^3/uL (130-400) 08/26/23 06:40
MPV 9.2 fL (7.4-10.4) 08/26/23 06:40
Abs Immat Gran (auto) 0.3 10^3/uL (0-0.05) H 08/22/23 07:16
Absolute Neuts (auto) 5.3 10^3/uL (1.4-6.5) 08/22/23 07:16
Absolute Lymphs (auto) 5.7 10^3/uL (1.2-3.4) H 08/22/23 07:16
Absolute Monos (auto) 0.7 10^3/uL (0.1-0.6) H 08/22/23 07:16
Absolute Eos (auto) 0.0 10^3/uL (0-0.7) 08/22/23 07:16
Absolute Basos (auto) 0.1 10^3/uL (0-0.2) 08/22/23 07:16
Immature Gran % 2.4 % (0-0.5) H 08/22/23 07:16
Neutrophils % 44.0 % (42.2-75.2) 08/22/23 07:16
Lymphocytes % 46.9 % (20.5-51.1) 08/22/23 07:16
Monocytes % 6.1 % (1.7-9.3) 08/22/23 07:16
Eosinophils % 0.2 % (0-6) 08/22/23 07:16
Basophils % 0.4 % (0-2) 08/22/23 07:16
Creatinine 0.6 mg/dL (0.6-1.0) 08/26/23 06:40
Vital Signs
Vital Signs
Temp Pulse Resp BP Pulse Ox
97.8 F 76 18 120/75 96
08/26/23 07:00 08/26/23 09:09 08/26/23 09:09 08/26/23 07:00 08/26/23 09:09
--- NOTE | 2023-08-26 09:54 | CHAP ---
Fr. Sherman Kenny of [facility] in [place] anointed Olivia at her request. Time uncertain.
--- NOTE | 2023-08-26 09:54 | W.PN.CD ---
Today's Communication / Plan
-
-
await GI evaluation
Impression / Plan
-
Orthostatic hypotension:
multifactorial---deconditioning, low albumin, diuretic use when she isn't volume overloaded
symptoms seemed to start with diltiazem, continue to hold.hold - likely will be permanently dc'd
Dr Cedeño has increase Midodrine to 10 T
-she would only like to receive if bp <120. she feels poorly if her bp is <100. And She gets headaches at sbp >140.
- Dr Patino had a miranda discussion about goals and ability to control bp. It is unrealistic to think that her bp will be perfect at all times.
She has many active medical issues contributing and we need to have a goal of safely ambulating.
Rectal bleeding
she is sched to have c-scope while here in hospital
I told her to expect some mild-mod BP variation as a consequence of the prep&post procedure
Volume overload: Resolved
-she has no pitting edema and she isn't total body overloaded
-her albumin is 2.5
-she is sedentary
-Dr Patino explained if she keeps asking for a medication for each small issue rather focusing on her whole picture, we will see more hypotension, lyte abnormalities etc
-she needs compression, nutrition and No lasix currently.
Arrhythmia;
-h/o paf, pat ?flutter last admission
-currently sinus
- monitor rates off diltiazem
-in the future should be considered for DOAC but not with current GIB work up underway
Hyponatremia:
-improved and euvolemic
-hold further lasix
LLL PNA and atelectasis
-per pulmonary
GIB;
-work up underway with GI
Subjective:
She has no CV complaints today
awaiting GI workup
TTE: 08/24/23
CONCLUSIONS
�Normal biventricular size and systolic function without regional wall motion
�abnormality.
�No significant valvular disease.
Trivial pericardia effusion
Physical Exam
Vital Signs/Labs
Vital Signs
Temp Pulse Resp BP Pulse Ox
97.8 F 76 18 120/75 96
08/26/23 07:00 08/26/23 09:09 08/26/23 09:09 08/26/23 07:00 08/26/23 09:09
08/25/23 08/26/23 08/27/23
06:59 06:59 06:59
Actual Weight 124 lb 7 oz 124 lb 12.506 oz
08/26/23 06:40
08/26/23 06:40
PT 12.6 Sec (11.4-14.6) 08/19/23 13:02
INR 0.96 08/19/23 13:02
APTT 22.9 Sec (23.4-35.0) L 08/19/23 13:02
Magnesium 2.6 mg/dl (1.6-2.3) H 08/26/23 06:40
Free T4 1.19 ng/dl (0.78-2.19) 08/19/23 13:02
Data Reviewed
-
Date of Service: August 26, 2023
[2023-08-26] MEDS: DELTASONE 20 MG PO (09:56)
[2023-08-26] MEDS: OSCAL 500 + D 500 MG PO ×2 (09:56→20:32)
[2023-08-26] MEDS: OMNICEF 300 MG PO ×2 (09:56→20:32)
[2023-08-26] MEDS: VITAMIN B1 100 MG PO (09:56)
[2023-08-26] MEDS: VITAMIN B-12 500 MCG PO (09:56)
[2023-08-26] MEDS: PROTONIX 40 MG PO (09:56)
[2023-08-26] MEDS: CELEBREX 200 MG PO ×2 (09:56→20:32)
[2023-08-26] MEDS: FLOMAX 0.800000000000000044 MG PO (09:57)
[2023-08-26] MEDS: Pyridium 100 MG PO ×3 (09:57→21:29)
[2023-08-26] MEDS: CYMBALTA DELAYED RELEASE 30 MG PO (09:57)
[2023-08-26] MEDS: KCL 20 MEQ PO (09:57)
[2023-08-26] MEDS: ProAmatine 10 MG PO ×3 (09:58→18:26)
[2023-08-26] MEDS: NON-FORMULARY ITEM 1 UNIT PO (09:58)
[2023-08-26] MEDS: NON-FORMULARY ITEM 2 SPRAY NASAL ×2 (09:59→20:35)
[2023-08-26] MEDS: NON-FORMULARY ITEM 1 SPRAY NASAL (09:59)
[2023-08-26] MEDS: COMPOUND MEDICATION TOPICAL ×2 (10:13→20:32)
--- NOTE | 2023-08-26 12:12 | CM ---
Patient seen bedside.
patient OOB in chair.
Oxygen via SC.
patient has oxygen concentrator and Inogen at home since [facility] admission. She also has a hospital bed.
Patient for colonoscopy tomorrow, prep today.
[facility] cannot accept patient, no acute rehab needs.
Updated clinicals sent for skilled rehab at [facility].
If no beds available at [facility], patient plans home with [facility] care.
Plan: skilled vs home with .
--- NOTE | 2023-08-26 13:25 | W.PN.PUL3 ---
Today's Communication / Plan
-
O2
BDs
ICS
Colonoscopy 08-27
Assessment
-
Patient is a 72 year old F with PMH significant for PAF, severe persistent asthma, hypothyroidism admitted 08/16/23 for abnormal sodium (Na =122).� Patient was admitted here Jun for Strep pneumonia.� She was discharged to [facility]'s rehab
and then admitted to [facility] with COVID.� Patient states that she then began to develop increased edema/fluid retention in the legs.� She was started on a diuretic regimen consisting of BID Lasix and daily metolazone. In the past 12 hours, she notes
worsening cough/SOB. Per daughter who provides history on the phone, this was a change that they witnessed since she's been admitted. They have requested pulmonary evaluation 08/19/23.
Symptomatic hypovolemic hyponatremia likely 2/2 over-diuresis -hyponatremia now resolved
Acute Confusion/Encephalopathy related to above - confused resolved now
Generalized weakness
Chronic cough, nonproductive
Acute on chronic SOB -likely due to RODRIGUEZ
Urinary retention s/p Alicia
Severe persistent asthma requiring biologic therapy now with acute exacerbation
LLL consolidation - chronic since November 2022 (unknown if present prior to that as we do not have imaging before that time)
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
Adm Jul 2023 for Strep PNA with AE asthma
Adm November 2022: acute hypoxemic respiratory failure, CAP LLL infiltrate, markedly ^PCT, asthma exacerbation. Completed 5d cefepime
Severe asthma, on daliresp, fluticasone, montelukast, salmeterol
Follows up at [facility] and [facility]
Monoclonal B-cell lymphocytosis
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
AFib s/p ablation
Hypothyroidism
Hysterectomy
R hip replacement
Cataract surgery
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
Seasonal allergies
Intermittent epistaxis, historically L>>>R
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
Allergy to azithromycin
DNR
Plan
Titrate O2 flow rate to keep SpO2 >90-94%
No prior history of O2 use at home
08-25: walked 70 ft, POx RA 94% down to 92% with ambulation
She has prior history of severe persistent asthma, being managed by Dr Neely.
She was recently on a prednisone taper after Jul adm. She does feel better with oral steroid dosing.
Recent spirometry as outpatient demonstrating poor effort/cough throughout, but FEV1 1.63L 73%.
Continue OCS with wean as tolerated, currently at 20 mg pred qd since 08-23(was on 30 mg qd upon adm, on a slow taper to off)
Continue fluticasone/serevent bid
Continue levalbuterol HFA/nebs prn
Suspect patient has acute on chronic SOB due to recent episodes of strep PNA followed by COVID with deconditioning and CHF
CXR 08/19/23 showing L basilar atelectasis but not significantly changed from prior, never had chest CT.
We will obtain repeat PFT/6MWT to compare to prior done as OP if there is a change
Repeat PFT showing decline but still within moderate range
6MWT pending: patient declined on 08-19
Other imaging reviewed, CT Chest obtained showing LLL consolidation, there is small pericardial effusion (trivial on TTE 08-20)
s/p bronch with BAL on 08/22 -growing AFB, suspected to be RODRIGUEZ. Follow-up sensitivities. Follow-up fungus and bacterial culture
Antibiotics as per ID --> cefepime changed to cefdinir and to continue for 4 additional days through 08-28
ECHO results in past reviewed--stable function
Repeat ECHO on 08/20/2023 shows normal biventricular function
proBNP--none obtained
Careful resumption of diuresis per team
Urinary retention issues noted
Follow up with GI given rectal bleeding with a downtrending Hb
Considering AFB is likely due to RODRIGUEZ and patient not having any hemoptysis and O2 requirement seems stable, pulm aranda considered at intermediate-high risk for colonoscopy or sigmoidoscopy
TT Dr Allison and GI LANDCARE FACILITATOR 08-25, decided for colonoscopy as inpatient on 08-27
Pulm aranda stable for colonoscopy 08-27
Will need outpatient pulmonary evaluation in our office for PFTs and 6MWT
Diagnostic Data
CXR 08/19/23- LLL atelectasis
CXR 07/10/23- IMPRESSION: There is consolidation in the left lower lobe consistent with improving pneumonia along with a left pleural effusion. There is probable atelectasis in the right lower lobe.
CXR 07-05-23: Progressed findings suggesting mild left lower lobe pneumonia; New moderate right lower lobe probable atelectasis; Mild cardiomegaly. Stable
CXR 07-03-23 c/w November 15 and . Baseline films with improved LLL infiltrate but persistently blurred L diaphragm. Current films without gross infiltrates but suspicious for positive spine sign at L base
CT Chest 08/20/23: Left base consolidation and/or atelectasis, small amount of right base atelectasis with shift of the mediastinum toward the left. No discrete mediastinal or hilar mass identified however repeat imaging with IV contrast after
treatment is recommended to exclude an occult process. Small bibasilar pleural effusions. Small to moderate amount of pericardial effusion.
Spirometry 08/20/22: FEV1 1.21L 54%, FVC 1.46L 49%, ratio 83. Post FEV1 1.27L 57% no BD response. (mixed pattern, moderately reduced, decreased from prior testing but remains in moderate category)
PFT:
Spirometry 05/23/2023: FEV1/FVC 82%, FEV1 1.63 L-73%, FVC 1.97 L, 66%.� No airflow obstruction.� Patient has difficulty with the maneuvers due to coughing.
Crow 12/17/22: unable.
6 MWT:
6MWT 12/17/22: At rest, O2 99% on room air, heart rate 82. With ambulation, O2 remained at 99 to 100% on room air, max heart rate 90. 5/10 on dyspnea scale. Only able to ambulate 150 feet
ECHO 07/08/23- �LV ejection fraction is 60-65%, by visual assessment. No regional wall motion�abnormalities are seen.�Normal right ventricular size and function.�No significant valvular disease.�No prior study available for comparison.
Subjective Data
-
Date of Service:
Date of Service: August 26, 2023
Chief Complaint: Pulmonary Follow Up
Subjective:
No resp events of significance
Preparing for colonoscopy
Review of Systems
General: Fever (n), Sweats (n), Chills (n) and Satisfactory Appetite
HEENT: Epistaxis (n) and Dysphagia
Cardiopulmonary: Dyspnea (n at rest on O2) and Wheezing
GI: Abdominal Pain (n), Nausea (n) and Vomiting
Neuro: Weakness
Objective Data
Data Reviewed
Vital Signs / I&O / Oxygen:
Vital Signs
Temp Pulse Resp BP Pulse Ox
97.8 F 91 18 110/68 96
08/26/23 11:13 08/26/23 11:13 08/26/23 11:13 08/26/23 11:13 08/26/23 11:13
Intake and Output
08/25/23 08/26/23 08/27/23
06:59 06:59 06:59
Intake Total 1800 / 1800 420 / 420
Balance 1800 / 1800 420 / 420
SaO2 96
Nasal Cannula flow liters per 3
minute
Physical Exam
General: Comfortable and Other (NAD, deconditioned)
HEENT: Normocephalic, Anicteric and Moist Mucous Membranes
Cardiovascular: S1-S2, Regular Rhythm, JVD, Peripheral Edema (negative) and Calf Tenderness (n)
Respiratory: Wheeze (negative), Crackles (left base), Rhonchi (negative), Non-Labored Respirations and Stridor (negative)
GI: Soft, Non Distended, Non Tender and Normal Bowel Sounds
Neurology: AO x 3 and No Motor Deficits
Skin: Warm, Dry and Good Color
Labs/Micro/Reports
Lab Data
08/26/23 06:40
08/26/23 06:40
Microbiology
08/22/23 09:56 Bronch Left Upper Lobe Fungal Culture - Preliminary
Culture in progress.
Positive cultures are reported as soon as detected.
Final report to follow in four to five weeks.
08/22/23 09:56 Bronch Left Lower Lobe Fungal Culture - Preliminary
Yeast
08/22/23 09:56 Bronch Left Lower Lobe Acid Fast Bacilli Smear - Preliminary
08/22/23 09:56 Bronch Left Lower Lobe Acid Fast Bacilli Culture - Preliminary
Acid fast bacilli
08/22/23 09:56 Bronch Left Lower Lobe Specimen Source - Final
08/22/23 09:56 Bronch Left Lower Lobe Mycobacterium tuberculosis DNA (PCR - Final
08/22/23 09:56 Bronch Left Lower Lobe M. tuberculosis Rifampin (PCR) - Final
08/22/23 09:56 Bronch Left Lower Lobe M. tuberculosis Complex Interpretat - Final
08/19/23 16:02 Blood/Venous Blood Culture - Final
No Growth - Final Report
08/22/23 09:56 Bronch Left Upper Lobe Acid Fast Bacilli Smear - Preliminary
08/22/23 09:56 Bronch Left Upper Lobe Acid Fast Bacilli Culture - Preliminary
Acid fast bacilli
08/19/23 13:02 Blood/Venous Blood Culture - Final
No Growth - Final Report
08/22/23 09:56 Bronch Left Upper Lobe Respiratory Culture - Final
Usual Respiratory Kayla
08/22/23 09:56 Bronch Left Upper Lobe Gram Stain - Final
08/22/23 09:56 Bronch Left Lower Lobe Respiratory Culture - Final
Usual Respiratory Kayla
08/22/23 09:56 Bronch Left Lower Lobe Gram Stain - Final
08/21/23 11:11 Sputum Respiratory Culture - Final
Usual Respiratory Kayla
08/21/23 11:11 Sputum Gram Stain - Final
[2023-08-26] MEDS: MIRALAX 51 GRAMS PO ×3 (13:29→17:27)
[2023-08-26] MEDS: DULCOLAX 10 MG PO (13:29)
--- NOTE | 2023-08-26 15:33 | WOUNDNOTE ---
JOEL RN NOTE: Followed up with patient today regarding sacral wound. Appears stable no change from previous assessment. Patient able to turn self to side, on air overlay and has air cushion in use under intact heels. Using oxygen via NC, ear rims
checked and intact. No change in wound care.
[2023-08-26] MEDS: VITAMIN C 500 MG PO (17:27)
[2023-08-26] MEDS: ProAmatine PO (17:27)
[2023-08-26] MEDS: VITAMIN D3 (cholecalciferol) 25 MCG PO (17:28)
[2023-08-26] MEDS: CYMBALTA DELAYED RELEASE 60 MG PO (20:32)
[2023-08-26] MEDS: ESTRACE 0.01% VAGINAL CREAM VAG (21:15)
[2023-08-26] MEDS: DALIRESP 500 MCG PO (21:29)
[2023-08-26] MEDS: SINGULAIR 10 MG PO (21:29)
[2023-08-26] MEDS: XANAX 0.5 MG PO (23:43)
[2023-08-26] MEDS: TYLENOL 650 MG PO (23:43)
[2023-08-26] MEDS: TESSALON PERLES 100 MG PO (23:44)
[2023-08-27] VITALS (11 sets, daily range): BP systolic 14–118; BP diastolic 56–94; BMI 21.4
--- NOTE | 2023-08-27 04:35 | DOWNTIME ---
There was a [employer] Client Pulping Machine Operator Downtime on 08/27/2023 from 0111 to 08/27/2023 at 0405. Downtime documentation of patient's care, including medication administrations, has been reconciled in the electronic record per guidelines. Refer to the
patient's paper chart under the miscellaneous tab to see printed paper medication records and downtime forms.
[2023-08-27] MEDS: SYNTHROID 112 MCG PO (06:09)
[2023-08-27] MEDS: NEURONTIN 600 MG PO ×3 (06:09→22:29)
[2023-08-27] MEDS: TESSALON PERLES 100 MG PO ×2 (06:09→23:47)
--- NOTE | 2023-08-27 07:13 | W.PN.HOSP.TC ---
Today's Communication/Plan
-
antibiotics as per ID
cont midodrine
pain control
monitor H&H
Assessment / Plan
Assessment / Plan
Physical Exam
General: Not in acute distress -
HEENT: Normocephalic, Atraumatic
Respiratory: mild wheezing
Cardiac: Regular Rhythm and S1/S2
GI: Soft, Nontender and Nondistended. Positive bowel sounds.
Musculoskeletal: No Clubbing, No Cyanosis and No Edema

CT Head without IV contrast appreciated No acute intracranial abnormality
CT Chest W/o Iv Contrast appreciated Left base consolidation and/or atelectasis, small amount of right base atelectasis with shift of the mediastinum toward the left. Limited exam without IV contrast. No discrete mediastinal or hilar mass
identified however repeat imaging with IV contrast after treatment was recommended to exclude an occult process. Small bibasilar pleural effusions. Small to moderate amount of pericardial effusion
ECHO appreciated
Normal biventricular size and systolic function without regional wall motion
abnormality.
No significant valvular disease.
No prior study available for comparison
Assessment/Plan
Symptomatic Hypovolemic Hyponatremia related to over-diuresis. Feels weak, unable to walk, feels confused
- Hold metolazone
- Resumed Lasix 40 mg 08/22/23 daily as opposed to BID as was her home regimen prior later discontinued as per cardio recommendations
- Celebrex initially held, resumed as below
- IVF completed
- Na improved 130s
- Okay to continue Duloxetine
Acute Confusion/Encephalopathy - Resolved
Generalized Weakness Below Baseline
Left Lower Lobe Consolidation on CT Imaging
Left Lower Lobe Atelectasis
Suspected COPD Exacerbation
Cough, Rhonchi
-UA (urine culture with no growth), Influenza (negative), COVID (negative), Ammonia (low), Coagulation Studies (okay), Serum osmoles (okay), Blood cultures (no growth to date), TSH (low but T4 wnl - outpatient follow up), Vitamin B12 (high)
-Cortisol (in the morning) was low at 1.3 -- likely suppression d/t steroids
-CT Head unremarkable
-Thiamine 100 mg PO daily
Small bibasilar pleural effusions
Small to moderate amount of pericardial effusion
-Cardiology consulted, recommendations appreciated
-Echocardiogram ordered, results are above
-On echo, pericardial effusion is trivial
Orthostatic Hypotension
Dizziness/Lightheadedness on Standing
-patient not tolerating abd binder, has been using TEDs only
-cardio consult appreciated, midodrine increased to 10 mg TID, cardizem and lasix discontinued, compression to be increased
Bright red blood through vagina and rectal areas
Bright Red Blood Per Rectum on 08/21/23
-Monitor Hgb
-outpatient OBGYN follow up
GI eval appreciated Colonoscopy performed 08/27
� � � � � � � � � � � - Non-bleeding internal and external hemorrhoids.
�� � � � � � � � � � � - Diverticulosis in the entire examined colon.
�� � � � � � � � � � � - The examination was otherwise normal.
�� � � � � � � � � � � - One 4 mm polyp in the descending colon, removed with
�� � � � � � � � � � � a jumbo cold forceps. Resected and retrieved.
�� � � � � � � � � � � - One 8 mm polyp in the ascending colon, removed with
�� � � � � � � � � � � a hot snare. Resected and retrieved.
rectal bleeding likely from hemorrhoids
Normocytic Anemia
Anemia of Chronic Disease
Patient reports remote history adverse rxn blood transfusion hives all over
Monoclonal B cell lymphocytosis
-Iron Studies appreciated AOCD with Iron level wnl
-Vit B12 non-deficient
-Hematology Eval Appreciated
Hypokalemia resolved at this time
-monitor and replete as necessary
Chronic dean catheter, requires Flomax
Recent Urethral Bleeding from a Urinary Catheter
Uretheral Prolapse
Bladder Spasms
Reported urinary clots
-Urology consult appreciated, cont outpt follow up with her urologist at [facility]
-Suspected atrophic vaginitis, Estrace cream started, vaginal bleeding since resolved, outpt obgyn follow up
Severe COPD
Prior history of severe persistent asthma
Chronic Hypoxic Respiratory Failure
Acute on chronic SOB due to recent episodes of strep PNA followed by COVID with deconditioning and CHF
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
-Recent admissions for Strep pneumonia and COVID
-Patient alternates 6 weeks coarse of doxycycline and Ceftin - Currently on doxycycline
-Continue prednisone as prior to admission, currently tapering down 10mg every 5 days to baseline 5mg
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
-tapered from 30 mg to 20 mg starting 08/24
-Continue Daliresp
-Continue fluticasone and salmeterol
-Continue levalbuterol prn
-Pulm eval appreciated
-Bronchoscopy performed on 08/22/23: follow bronchoalveolar lavage and cultures results acid fast bacilli positive pending speciation, PCR for TB however neg
-Infectious Disease consulted appreciated, Cefepime converted to cefdinir, no need for isolation/quarantine at this time.
Paroxysmal Atrial Fibrillation s/p Ablation
-Patient is not on anticoagulation as outpatient
-Continue diltiazem discontinued as above
Sacrum Healing Stage 3 pressure injury, POA
-Continue wound care
Anxiety/Depression
Continue Duloxetine and alprazolam
Hypothyroidism
-Continue levothyroxine
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
-Continue gabapentin and duloxetine
-Gabapentin at max dose 1800 mg at 3 divided doses for her Cr clearance, considering transition to pregabalin if pain control remains insufficient
Arthritis
-home celecoxib resumed 08/25 discussed with patient regarding potential risk hyponatremia tamie worsening GI bleed, patient able to verbalize her understanding of potential risk and requests to resume given the potential benefit with regards to
resolution/improvement arthritic pain
Environment/Seasonal Allergies
-Continue fexofenadine and montelukast
History of Steroid-Induced Myopathy
PT/OT appreciated Rehab vs Home PT
DVT proph: (Previously Lovenox discontinued due to Bleeding as above) TERRI stockings, SCD ordered
GI ppx: protonix
Code Status: DNR/DNI
I spent a total of 55 minutes with the patient or on the floor. More than 50% of this time involved counseling and coordination of care.
Anticipated Discharge: Within 24 hours
Subjective/Interval History
-
Date of Service: August 27, 2023
no acute distress. Appears comfortable at this time. Recently completed colonoscopy. Continues to report neuropathic pain. Offered switch from gabapentin to pregabalin, patient considering.
Objective Data
-
Labs:
Laboratory Results
08/27/23
06:32
WBC Pending
Hgb Pending
Hct Pending
Plt Count Pending
Sodium Pending
Potassium Pending
Chloride Pending
Carbon Dioxide Pending
BUN Pending
Creatinine Pending
Glucose Pending
Calcium Pending
Total Bilirubin Pending
AST Pending
ALT Pending
Alkaline Phosphatase Pending
Vital Signs:
Vital Signs
Temp Pulse Resp BP Pulse Ox
97.9 F 77 18 115/73 96
08/27/23 04:00 08/27/23 04:00 08/27/23 04:00 08/27/23 04:00 08/27/23 04:00
I&O
08/26/23 08/27/23 08/28/23
06:59 06:59 06:59
Intake Total 420 / 420 1140 / 1140
Balance 420 / 420 1140 / 1140
[2023-08-27] MEDS: XOPENEX 0.63 MG INHALANT SOLUTION 0.630000000000000004 MG INH ×3 (07:39→20:46)
[2023-08-27] MEDS: NON-FORMULARY ITEM 2 INH INH ×2 (07:40→20:45)
[2023-08-27] MEDS: NON-FORMULARY ITEM 1 UNIT INH ×2 (07:40→20:45)
[2023-08-27] MEDS: ProAmatine 10 MG PO ×3 (07:58→18:16)
[2023-08-27 08:00] LABS: Hematocrit 29.9 % (37.0-47.0); Hemoglobin 9.7 g/dL (12.0-16.0); Mean Corp Hgb Conc. 32.4 g/dL (33.0-37.0); Mean Corpuscular Hgb 31.5 pg (27.0-31.0); Mean Corpuscular Volume 97.1 fL (81.0-99.0); Mean Platelet Volume 9.4 fL (7.4-10.4); Platelet Count 287 10^3/uL (130-400); Red Blood Cell Count 3.08 10^6/uL (4.20-5.40); Red Cell Dist. Width 14.9 % (11.5-14.5); White Blood Cell Count 10.9 10^3/uL (4.8-10.8)
[2023-08-27 08:40] LABS: ALT (SGPT) 21 U/L (0-35); AST (SGOT) 20 U/L (14-36); Albumin 2.9 g/dl (3.5-5.0); Alkaline Phosphatase 34 U/L (38-126); Blood Urea Nitrogen 7 mg/dl (7-17); Calcium 8.9 mg/dl (8.4-10.2); Carbon Dioxide 33 mmol/L (22-30); Chloride 99 mmol/L (98-107); Estimated Creatinine Clearance 74 ml/min; Glucose 62 mg/dl (70-99); Magnesium 2.4 mg/dl (1.6-2.3); Phosphorus 3.3 mg/dl (2.5-4.5); Sodium 135 mmol/L (135-145); Total Bilirubin 0.7 mg/dl (0.2-1.3); Total Protein 4.8 g/dl (6.3-8.2); eGFR > 60.00
[2023-08-27 10:18] LABS: Absolute Neutrophils -Man Diff 4.6 10^3/uL (1.4-6.5); Atypical Lymphocytes 28 %; Band Neutrophils 0 % (0-3); Eosinophils 1 % (0-6); Lymphocytes 24 % (20-51); Monocytes 4 % (2-9); Segmented Neutrophils 43 % (42-75)
[2023-08-27 10:19] LABS: Anisocytosis 1+; Microcytosis 1+; Normal RBC Morphology No; Polychromasia Occasional; Spherocytes 1+
[2023-08-27 10:20] LABS: Platelets Checked Yes; Total Cells Counted 100
[2023-08-27 10:21] LABS: Reticulocyte Count 3.5 % (0.4-2.8)
[2023-08-27] MEDS: COMPOUND MEDICATION TOPICAL ×2 (11:10→20:01)
[2023-08-27] MEDS: NON-FORMULARY ITEM 2 SPRAY NASAL ×2 (11:15→20:03)
[2023-08-27] MEDS: NON-FORMULARY ITEM 1 SPRAY NASAL (11:15)
[2023-08-27] MEDS: FLOMAX 0.800000000000000044 MG PO (11:16)
[2023-08-27] MEDS: PROTONIX 40 MG PO (11:17)
[2023-08-27] MEDS: OSCAL 500 + D 500 MG PO ×2 (11:17→20:03)
[2023-08-27] MEDS: CYMBALTA DELAYED RELEASE 30 MG PO (11:17)
[2023-08-27] MEDS: OMNICEF 300 MG PO ×2 (11:18→20:03)
[2023-08-27] MEDS: NON-FORMULARY ITEM 1 UNIT PO (11:19)
[2023-08-27] MEDS: DELTASONE 20 MG PO (11:19)
[2023-08-27] MEDS: CELEBREX 200 MG PO ×2 (11:19→20:03)
[2023-08-27] MEDS: KCL 20 MEQ PO (11:20)
[2023-08-27] MEDS: VITAMIN B1 100 MG PO (11:21)
[2023-08-27] MEDS: Pyridium 100 MG PO ×3 (11:21→22:29)
[2023-08-27] MEDS: VITAMIN B-12 500 MCG PO (11:22)
--- NOTE | 2023-08-27 14:02 | W.PN.CD ---
Addendum entered and electronically signed by Mal Ann MD 08/27/23 14:22:
I saw and examined the patient.
The HERPETOLOGY TEACHER's note was reviewed and I agree with the note.
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 She will monitor her BP and when BP consistently above 120-[address] Cedeño to decrease and wean to off as able the midodrine. The importance of exercise to improve orthostasis was reviewed.
Plan as before for tele to assess rhythm.
We will arrange out pt monitor and followup with Dr. Cedeño.
We will sign off. Please call with questions.
Original Note:
Today's Communication / Plan
-
-continue midodrine. Monitor home BP's and call office if SBP consistently greater than 120. Encourage exercise as tolerated.
-2 week monitor in about 2 months and follow-up with Dr. Cedeño 3 months- we will arrange
-remain off diltiazem at this time
Impression / Plan
-
Orthostatic hypotension:
-multifactorial- deconditioning, low albumin, diuretic use when she isn't volume overloaded
-symptoms seemed to start with diltiazem, which has been stopped here
-continue midodrine and she will call cardiology office if SBP consistently >120, for instructions on this medicine.
-encouraged exercise/ambulation
Rectal bleeding:
-s/p colonoscopy: hemorrhoids, diverticulosis in the entire examined colon. Polyps removed. Bleeding felt to be from hemorrhoids. Miralax daily. Pathology of polyps pending.
Volume overload: Resolved
-she needs compression, nutrition and no lasix currently.
Arrhythmia:
-h/o PAF with ablation 2017 [facility] (not on AC), PAT with ?flutter last admission, but not AFIB.
-currently sinus
-stable off diltiazem
-there was plan for 2 week monitor as OP, but was not done. Will arrange for about 2 months, then f/u with Dr. Cedeño 3 months.
-consider OAC as OP with Dr. Cedeño
Subjective:
No concerning cardiac symptoms or arrhythmias at this time
TTE: 08/24/23
CONCLUSIONS
�Normal biventricular size and systolic function without regional wall motion
�abnormality.
�No significant valvular disease.
Trivial pericardia effusion
Physical Exam
Vital Signs/Labs
Vital Signs
Temp Pulse Resp BP Pulse Ox
98.3 F 87 18 118/62 99
08/27/23 11:00 08/27/23 11:00 08/27/23 11:00 08/27/23 13:35 08/27/23 11:00
08/26/23 08/27/23 08/28/23
06:59 06:59 06:59
Actual Weight 56.6 kg 56.444 kg
08/27/23 06:32
08/27/23 06:32
PT 12.6 Sec (11.4-14.6) 08/19/23 13:02
INR 0.96 08/19/23 13:02
APTT 22.9 Sec (23.4-35.0) L 08/19/23 13:02
Magnesium 2.4 mg/dl (1.6-2.3) H 08/27/23 06:32
Free T4 1.19 ng/dl (0.78-2.19) 08/19/23 13:02
Physical Exam
Constitutional: No acute distress
EENT: Anicteric
Cardiovascular: Rhythm & rate is regular
Respiratory: Respiratory effort normal and Lungs clear to auscul.
Neuro/Psych: AO x 3
Other: Skin (warm and dry)
Data Reviewed
-
Date of Service: August 27, 2023
EKG: Other (tele SR)
Labs: Labs Reviewed by me
--- NOTE | 2023-08-27 14:43 | CM ---
Addendum entered by Yi Kruse 08/27/23 16:00:
Spoke with [place]/[facility] care, Notified of d/c and patient request to be seen Friday.
Original Note:
Per [facility], no beds available.
patient declines alternate facilities and just plans on home.
Patient has home oxygen available (home oxygen assessment shows no current need).
Patient will arrange for transportation.
Plan: d/c tomorrow with [facility]. ([facility])
[facility] Care
--- NOTE | 2023-08-27 17:36 | W.PN.ID1 ---
Date of Service
Date of Service: August 27, 2023
Today's Communication
Complete course of antibiotics.
Assessment / Plan
Left lower lobe pneumonia
Hypoxemia
Suspected exacerbation of COPD
Recovery of Mycobacterium from [facility] sample
- PCR negative for Mycobacterium tuberculosis; suspect RODRIGUEZ
Monoclonal B-cell lymphocytosis
P A-fib
Hypothyroidism
Gait dysfunction
Hx Steroid-induced myopathy
Recommendations:
Patient overall appears improved. Cultures negative thus far, although AFB smears are noted to be positive.
Complete current course of cefdinir.
I had a long discussion with the patient regarding the positive AFB smears. No history of tuberculosis exposure noted.
TB PCR negative; will need to await final speciation of recovered AFB. Outpatient follow-up in 4 to 8 weeks, to discuss options.
����������������������������������������������������������
Chief Complaint
-: Pneumonia
Subjective / Review of Systems
Review of Systems: No Fever and No Chills
Vital Signs / Physical Exam
Vital Signs
Vital Signs
Temp Pulse Resp BP Pulse Ox
98.9 F 101 22 102/68 94
08/27/23 15:00 08/27/23 15:00 08/27/23 15:00 08/27/23 15:00 08/27/23 15:00
Physical Exam
Constitutional: No Acute Distress, Comfortable, Chronically Ill and Non-toxic
Eyes: Sclera Anicteric
Pulmonary: Non Labored
Skin: Negative Jaundice
Neurological: Awake and Alert
Psychological: Calm
Objective Data
Lab Data
Lab Results
08/27/23 06:32
08/27/23 06:32
PT 12.6 Sec (11.4-14.6) 08/19/23 13:02
INR 0.96 08/19/23 13:02
APTT 22.9 Sec (23.4-35.0) L 08/19/23 13:02
Estimated Creat Clear 74 ml/min 08/27/23 06:32
Lactic Acid 1.9 mmol/L (0.7-2.0) 08/16/23 19:17
Total Bilirubin 0.7 mg/dl (0.2-1.3) 08/27/23 06:32
AST 20 U/L (14-36) 08/27/23 06:32
ALT 21 U/L (0-35) 08/27/23 06:32
Alkaline Phosphatase 34 U/L (38-126) L 08/27/23 06:32
Most recent labs reviewed.
Micro Results:
08/22/23 13:56 Fungus Mold Identification - Pending
Bronch Left Lower Lobe
08/22/23 09:56 Fungal Culture - Preliminary
Bronch Left Lower Lobe Yeast
08/22/23 09:56 Fungal Culture - Preliminary
Bronch Left Upper Lobe Culture in progress.
Positive cultures are reported as soon as detected.
Final report to follow in four to five weeks.
08/22/23 09:56 Acid Fast Bacilli Smear - Preliminary
Bronch Left Lower Lobe Acid Fast Bacilli Culture - Preliminary
Acid fast bacilli
Specimen Source - Final
Mycobacterium tuberculosis DNA (PCR - Final
M. tuberculosis Rifampin (PCR) - Final
M. tuberculosis Complex Interpretat - Final
08/19/23 16:02 Blood Culture - Final
Blood/Venous No Growth - Final Report
08/22/23 09:56 Acid Fast Bacilli Smear - Preliminary
Bronch Left Upper Lobe Acid Fast Bacilli Culture - Preliminary
Acid fast bacilli
08/19/23 13:02 Blood Culture - Final
Blood/Venous No Growth - Final Report
08/22/23 09:56 Respiratory Culture - Final
Bronch Left Upper Lobe Usual Respiratory Kayla
Gram Stain - Final
08/22/23 09:56 Respiratory Culture - Final
Bronch Left Lower Lobe Usual Respiratory Kayla
Gram Stain - Final
08/21/23 11:11 Respiratory Culture - Final
Sputum Usual Respiratory Kayla
Gram Stain - Final
08/20/23 20:54 Respiratory Culture - Final
Sputum Gram Stain - Final
08/19/23 12:40 Urine Culture - Final
Urine NO GROWTH
08/19/23 12:39 Influenza Types A & B (DIEGO) - Final
Nasal Swab Negative for Influenza A & B, NAAT
Negative results must be combined with clinical observations
and patient history.
Nucleic Acid Amplification test (NAAT)performed on the
[employer] platform.
08/16/23 20:05 Urine Culture - Final
Urine NO GROWTH
--- NOTE | 2023-08-27 17:44 | W.PN.PUL3 ---
Today's Communication / Plan
-
O2
Pred
BDs
Atb
Dispo
Assessment
-
Patient is a 72 year old F with PMH significant for PAF, severe persistent asthma, hypothyroidism admitted 08/16/23 for abnormal sodium (Na =122).� Patient was admitted here Jun for Strep pneumonia.� She was discharged to [facility]'s rehab
and then admitted to [facility] with COVID.� Patient states that she then began to develop increased edema/fluid retention in the legs.� She was started on a diuretic regimen consisting of BID Lasix and daily metolazone. In the past 12 hours, she notes
worsening cough/SOB. Per daughter who provides history on the phone, this was a change that they witnessed since she's been admitted. They have requested pulmonary evaluation 08/19/23.
Symptomatic hypovolemic hyponatremia likely 2/2 over-diuresis -hyponatremia now resolved
Acute Confusion/Encephalopathy related to above - confused resolved now
Generalized weakness
Chronic cough, nonproductive
Acute on chronic SOB -likely due to RODRIGUEZ
Urinary retention s/p Alicia
Severe persistent asthma requiring biologic therapy now with acute exacerbation
LLL consolidation - chronic since November 2022 (unknown if present prior to that as we do not have imaging before that time)
Conditions [employer]:
Adm Jul 2023 for Strep PNA with AE asthma
Adm November 2022: acute hypoxemic respiratory failure, CAP LLL infiltrate, markedly ^PCT, asthma exacerbation. Completed 5d cefepime
Severe asthma, on daliresp, fluticasone, montelukast, salmeterol
Follows up at [facility] and [facility]
Monoclonal B-cell lymphocytosis
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
AFib s/p ablation
Hypothyroidism
Hysterectomy
R hip replacement
Cataract surgery
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
Seasonal allergies
Intermittent epistaxis, historically L>>>R
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
Allergy to azithromycin
DNR
Plan
No prior history of O2 use at home, states she qualified for O2 recently at rehab which rec 3L
POx today on 3L< 94%
08-25: walked 70 ft, POx RA 94% down to 92% with ambulation
She has prior history of severe persistent asthma, being managed by Dr Neely.
She was recently on a prednisone taper after Jul adm. She does feel better with oral steroid dosing.
Recent spirometry as outpatient demonstrating poor effort/cough throughout, but FEV1 1.63L 73%.
Continue OCS with wean as tolerated, currently at 20 mg pred qd since 08-23(was on 30 mg qd upon adm, on a slow taper to off)
Taper prednisone by 10 mg on 08-29, then down to 5 mg on 09-03, then d/c, patient aware
Continue fluticasone/serevent bid
Continue levalbuterol HFA/nebs prn
Suspect patient has acute on chronic SOB due to recent episodes of strep PNA followed by COVID with deconditioning and CHF
CXR 08/19/23 showing L basilar atelectasis but not significantly changed from prior, never had chest CT.
Repeat PFT showing decline but still within moderate range
6MWT pending: patient declined on 08-19
Other imaging reviewed, CT Chest obtained showing LLL consolidation, there is small pericardial effusion (trivial on TTE 08-20)
s/p bronch with BAL on 08/22 -growing AFB, suspected to be RODRIGUEZ. Follow-up sensitivities. Follow-up fungus and bacterial culture. No lung biopsies
Antibiotics as per ID --> cefepime changed to cefdinir and to continue for 4 additional days through 08-28
ECHO results in past reviewed--stable function
Repeat ECHO on 08/20/2023 shows normal biventricular function
proBNP--none obtained
Careful resumption of diuresis per team
Urinary retention issues noted
Follow up with GI given rectal bleeding with a downtrending Hb
Considering AFB is likely due to RODRIGUEZ and patient not having any hemoptysis and O2 requirement seems stable, pulm aranda considered at intermediate-high risk for colonoscopy or sigmoidoscopy
TT Dr Allison and GI [employer] 08-25, decided for colonoscopy as inpatient on 08-27
Pulmika aranda stable for colonoscopy 08-27:
colonoscopy today with no events: diverticulosis in entire colon, nonbleeding internal/external hemorrhoids
Follow with Dr Neely in 3-4 wks, also to follow with ID
Pulmika aranda stable for d/c tomorrow
Reconsult prn
Diagnostic Data
CXR 08/19/23- LLL atelectasis
CXR 07/10/23- IMPRESSION: There is consolidation in the left lower lobe consistent with improving pneumonia along with a left pleural effusion. There is probable atelectasis in the right lower lobe.
CXR 07-05-23: Progressed findings suggesting mild left lower lobe pneumonia; New moderate right lower lobe probable atelectasis; Mild cardiomegaly. Stable
CXR 07-03-23 c/w November 15 and . Baseline films with improved LLL infiltrate but persistently blurred L diaphragm. Current films without gross infiltrates but suspicious for positive spine sign at L base
CT Chest 08/20/23: Left base consolidation and/or atelectasis, small amount of right base atelectasis with shift of the mediastinum toward the left. No discrete mediastinal or hilar mass identified however repeat imaging with IV contrast after
treatment is recommended to exclude an occult process. Small bibasilar pleural effusions. Small to moderate amount of pericardial effusion.
Spirometry 08/20/22: FEV1 1.21L 54%, FVC 1.46L 49%, ratio 83. Post FEV1 1.27L 57% no BD response. (mixed pattern, moderately reduced, decreased from prior testing but remains in moderate category)
PFT:
Spirometry 05/23/2023: FEV1/FVC 82%, FEV1 1.63 L-73%, FVC 1.97 L, 66%.� No airflow obstruction.� Patient has difficulty with the maneuvers due to coughing.
[place] 12/17/22: unable.
6 MWT:
6MWT 12/17/22: At rest, O2 99% on room air, heart rate 82. With ambulation, O2 remained at 99 to 100% on room air, max heart rate 90. 5/10 on dyspnea scale. Only able to ambulate 150 feet
ECHO 07/08/23- �LV ejection fraction is 60-65%, by visual assessment. No regional wall motion�abnormalities are seen.�Normal right ventricular size and function.�No significant valvular disease.�No prior study available for comparison.
Subjective Data
-
Date of Service:
Date of Service: August 27, 2023
Chief Complaint: Pulmonary Follow Up
Subjective:
Received colonoscopy today with no events: diverticulosis in entire colon, nonbleeding internal/external hemorrhoids
Objective Data
Data Reviewed
Vital Signs / I&O / Oxygen:
Vital Signs
Temp Pulse Resp BP Pulse Ox
98.9 F 101 22 102/68 94
08/27/23 15:00 08/27/23 15:00 08/27/23 15:00 08/27/23 15:00 08/27/23 15:00
Intake and Output
08/26/23 08/27/23 08/28/23
06:59 06:59 06:59
Intake Total 420 / 420 1140 / 1140
Balance 420 / 420 1140 / 1140
SaO2 94
Nasal Cannula flow liters per 3
minute
Physical Exam
General: Comfortable and Other (NAD, deconditioned)
HEENT: Normocephalic, Anicteric and Moist Mucous Membranes
Cardiovascular: S1-S2, Regular Rhythm, JVD, Peripheral Edema (negative) and Calf Tenderness (n)
Respiratory: Wheeze (negative), Crackles (left base), Rhonchi (negative), Non-Labored Respirations and Stridor (negative)
GI: Soft, Non Distended, Non Tender and Normal Bowel Sounds
Neurology: AO x 3 and No Motor Deficits
Skin: Warm, Dry and Good Color
Labs/Micro/Reports
Lab Data
08/27/23 06:32
08/27/23 06:32
Microbiology
08/22/23 09:56 Bronch Left Lower Lobe Fungal Culture - Preliminary
Yeast
08/22/23 09:56 Bronch Left Upper Lobe Fungal Culture - Preliminary
Culture in progress.
Positive cultures are reported as soon as detected.
Final report to follow in four to five weeks.
08/22/23 09:56 Bronch Left Lower Lobe Acid Fast Bacilli Smear - Preliminary
08/22/23 09:56 Bronch Left Lower Lobe Acid Fast Bacilli Culture - Preliminary
Acid fast bacilli
08/22/23 09:56 Bronch Left Lower Lobe Specimen Source - Final
08/22/23 09:56 Bronch Left Lower Lobe Mycobacterium tuberculosis DNA (PCR - Final
08/22/23 09:56 Bronch Left Lower Lobe M. tuberculosis Rifampin (PCR) - Final
08/22/23 09:56 Bronch Left Lower Lobe M. tuberculosis Complex Interpretat - Final
08/19/23 16:02 Blood/Venous Blood Culture - Final
No Growth - Final Report
08/22/23 09:56 Bronch Left Upper Lobe Acid Fast Bacilli Smear - Preliminary
08/22/23 09:56 Bronch Left Upper Lobe Acid Fast Bacilli Culture - Preliminary
Acid fast bacilli
08/19/23 13:02 Blood/Venous Blood Culture - Final
No Growth - Final Report
[2023-08-27] MEDS: VITAMIN C 500 MG PO (18:16)
[2023-08-27] MEDS: CYMBALTA DELAYED RELEASE 60 MG PO (20:03)
[2023-08-27] MEDS: ESTRACE 0.01% VAGINAL CREAM VAG (22:26)
[2023-08-27] MEDS: SINGULAIR 10 MG PO (22:29)
[2023-08-27] MEDS: DALIRESP 500 MCG PO (22:29)
[2023-08-27] MEDS: TYLENOL 650 MG PO (23:47)
[2023-08-27] MEDS: XANAX 0.5 MG PO (23:47)
[2023-08-28] MEDS: XOPENEX 0.63 MG INHALANT SOLUTION 0.630000000000000004 MG INH ×4 (03:53→20:06)
[2023-08-28 05:25] LABS: IgM 30 mg/dl (40-230)
[2023-08-28 06:00] VITALS: BMI 21.8
[2023-08-28] MEDS: NEURONTIN 600 MG PO ×3 (06:33→22:36)
[2023-08-28] MEDS: SYNTHROID 125 MCG PO (06:33)
[2023-08-28] MEDS: TESSALON PERLES 100 MG PO ×3 (06:33→23:51)
--- NOTE | 2023-08-28 06:43 | W.PN.HOSP.TC ---
Addendum entered and electronically signed by Flavio Smith MD 08/28/23 21:47:
Left Lower Lobe PNA present, suspected RODRIGUEZ coinfection
Original Note:
Today's Communication/Plan
-
Discharge on hold d/t progressive anemia persistent rectal bleeding
CRS eval requested
cont monitoring H&H
monitor respiratory status
Assessment / Plan
Assessment / Plan
Physical Exam
General: Not in acute distress -
HEENT: Normocephalic, Atraumatic
Respiratory: mild wheezing
Cardiac: Regular Rhythm and S1/S2
GI: Soft, Nontender and Nondistended. Positive bowel sounds.
Musculoskeletal: No Clubbing, No Cyanosis and No Edema

CT Head without IV contrast appreciated No acute intracranial abnormality
CT Chest W/o Iv Contrast appreciated Left base consolidation and/or atelectasis, small amount of right base atelectasis with shift of the mediastinum toward the left. Limited exam without IV contrast. No discrete mediastinal or hilar mass
identified however repeat imaging with IV contrast after treatment was recommended to exclude an occult process. Small bibasilar pleural effusions. Small to moderate amount of pericardial effusion
ECHO appreciated
Normal biventricular size and systolic function without regional wall motion
abnormality.
No significant valvular disease.
No prior study available for comparison
Assessment/Plan
Symptomatic Hypovolemic Hyponatremia related to over-diuresis. Feels weak, unable to walk, feels confused
- Hold metolazone
- Resumed Lasix 40 mg 08/22/23 daily as opposed to BID as was her home regimen prior later discontinued as per cardio recommendations
- Celebrex initially held, resumed as below
- IVF completed
- Na improved 130s
- Okay to continue Duloxetine
Acute Confusion/Encephalopathy - Resolved
Generalized Weakness Below Baseline
Left Lower Lobe Consolidation on CT Imaging
Left Lower Lobe Atelectasis
Suspected COPD Exacerbation
Cough, Rhonchi
-UA (urine culture with no growth), Influenza (negative), COVID (negative), Ammonia (low), Coagulation Studies (okay), Serum osmoles (okay), Blood cultures (no growth to date), TSH (low but T4 wnl - outpatient follow up), Vitamin B12 (high)
-Cortisol (in the morning) was low at 1.3 -- likely suppression d/t steroids
-CT Head unremarkable
-Thiamine 100 mg PO daily
Small bibasilar pleural effusions
Small to moderate amount of pericardial effusion
-Cardiology consulted, recommendations appreciated
-Echocardiogram ordered, results are above
-On echo, pericardial effusion is trivial
Orthostatic Hypotension
Dizziness/Lightheadedness on Standing
-patient not tolerating abd binder, has been using TEDs only
-cardio consult appreciated, midodrine increased to 10 mg TID, cardizem and lasix discontinued, compression to be increased
Bright red blood through vagina and rectal areas
Bright Red Blood Per Rectum on 08/21/23
-Monitor Hgb
-outpatient OBGYN follow up
GI eval appreciated Colonoscopy performed 08/27
� � � � � � � � � � � - Non-bleeding internal and external hemorrhoids.
�� � � � � � � � � � � - Diverticulosis in the entire examined colon.
�� � � � � � � � � � � - The examination was otherwise normal.
�� � � � � � � � � � � - One 4 mm polyp in the descending colon, removed with
�� � � � � � � � � � � a jumbo cold forceps. Resected and retrieved.
�� � � � � � � � � � � - One 8 mm polyp in the ascending colon, removed with
�� � � � � � � � � � � a hot snare. Resected and retrieved.
rectal bleeding likely from hemorrhoids
Normocytic Anemia
Anemia of Chronic Disease
Patient reports remote history adverse rxn blood transfusion hives all over
Monoclonal B cell lymphocytosis
-Iron Studies appreciated AOCD with Iron level wnl
-Vit B12 non-deficient
-Hematology Eval Appreciated
-anemia progressing, CRS eval requested possible benefit hemorrhoidectomy
Hypokalemia resolved at this time
-monitor and replete as necessary
Chronic dean catheter, requires Flomax
Recent Urethral Bleeding from a Urinary Catheter
Uretheral Prolapse
Bladder Spasms
Reported urinary clots
-Urology consult appreciated, cont outpt follow up with her urologist at [facility]
-Suspected atrophic vaginitis, Estrace cream started, vaginal bleeding since resolved, outpt obgyn follow up
Severe COPD
Prior history of severe persistent asthma
Chronic Hypoxic Respiratory Failure
Acute on chronic SOB due to recent episodes of strep PNA followed by COVID with deconditioning and CHF
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
-Recent admissions for Strep pneumonia and COVID
-Patient alternates 6 weeks coarse of doxycycline and Ceftin - Currently on doxycycline
-Continue prednisone as prior to admission, currently tapering down 10mg every 5 days to baseline 5mg
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
-tapered from 30 mg to 20 mg starting 08/24
-Continue Daliresp
-Continue fluticasone and salmeterol
-Continue levalbuterol prn
-Pulm eval appreciated
-Bronchoscopy performed on 08/22/23: follow bronchoalveolar lavage and cultures results acid fast bacilli positive pending speciation, PCR for TB however neg
-Infectious Disease consulted appreciated, Cefepime converted to cefdinir, no need for isolation/quarantine at this time.
Paroxysmal Atrial Fibrillation s/p Ablation
-Patient is not on anticoagulation as outpatient
-Continue diltiazem discontinued as above
Sacrum Healing Stage 3 pressure injury, POA
-Continue wound care
Anxiety/Depression
Continue Duloxetine and alprazolam
Hypothyroidism
-Continue levothyroxine
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
-Continue gabapentin and duloxetine
-Gabapentin at max dose 1800 mg at 3 divided doses for her Cr clearance, considering transition to pregabalin if pain control remains insufficient
Arthritis
-home celecoxib resumed 08/25 discussed with patient regarding potential risk hyponatremia tamie worsening GI bleed, patient able to verbalize her understanding of potential risk and requests to resume given the potential benefit with regards to
resolution/improvement arthritic pain
Environment/Seasonal Allergies
-Continue fexofenadine and montelukast
History of Steroid-Induced Myopathy
PT/OT appreciated Rehab vs Home PT
DVT proph: (Previously Lovenox discontinued due to Bleeding as above) TERRI stockings, SCD ordered
GI ppx: protonix
Code Status: DNR/DNI
I spent a total of 55 minutes with the patient or on the floor. More than 50% of this time involved counseling and coordination of care.
Anticipated Discharge: 24 - 48 hours
Subjective/Interval History
-
Date of Service: August 28, 2023
Episode of coughing sob this morning. 3lb weight gain noted. self-limited. Remains stable on nasal cannula supplementation 3L (patient reports having home oxygen 4L at home). Repeat CXR notes no acute changes. BNP negative for heart failure.
Hgb however noted drop 9.1 to 8.1 repeat stable 8.2 Bloody bowel movements persist.
Objective Data
-
Labs:
Laboratory Results
08/28/23
06:00
WBC Pending
Hgb Pending
Hct Pending
Plt Count Pending
Sodium Pending
Potassium Pending
Chloride Pending
Carbon Dioxide Pending
BUN Pending
Creatinine Pending
Glucose Pending
Calcium Pending
Total Bilirubin Pending
AST Pending
ALT Pending
Alkaline Phosphatase Pending
Vital Signs:
Vital Signs
Temp Pulse Resp BP Pulse Ox
98.4 F 97 18 106/65 94
08/27/23 22:59 08/27/23 22:59 08/27/23 22:59 08/27/23 22:59 08/27/23 22:59
I&O
08/26/23 08/27/23 08/28/23
06:59 06:59 06:59
Intake Total 420 / 420 1140 / 1140 960 / 960
Balance 420 / 420 1140 / 1140 960 / 960
[2023-08-28 07:00] VITALS: BP 116/82
[2023-08-28 07:23] LABS: IgA < 50 mg/dl (70-400); IgG < 270 mg/dl (700-1600)
[2023-08-28 07:46] LABS: Hematocrit 24.6 % (37.0-47.0); Hemoglobin 8.1 g/dL (12.0-16.0); Mean Corp Hgb Conc. 32.9 g/dL (33.0-37.0); Mean Corpuscular Hgb 31.9 pg (27.0-31.0); Mean Corpuscular Volume 96.9 fL (81.0-99.0); Mean Platelet Volume 9.1 fL (7.4-10.4); Platelet Count 245 10^3/uL (130-400); Red Blood Cell Count 2.54 10^6/uL (4.20-5.40); Red Cell Dist. Width 15.3 % (11.5-14.5); White Blood Cell Count 11.1 10^3/uL (4.8-10.8)
[2023-08-28] MEDS: NON-FORMULARY ITEM 1 UNIT INH ×2 (07:46→20:07)
[2023-08-28] MEDS: NON-FORMULARY ITEM 2 INH INH ×2 (07:47→20:08)
[2023-08-28 08:15] LABS: ALT (SGPT) 19 U/L (0-35); AST (SGOT) 18 U/L (14-36); Albumin 2.4 g/dl (3.5-5.0); Alkaline Phosphatase 34 U/L (38-126); Blood Urea Nitrogen 11 mg/dl (7-17); Carbon Dioxide 32 mmol/L (22-30); Chloride 103 mmol/L (98-107); Estimated Creatinine Clearance 74 ml/min; Glucose 96 mg/dl (70-99); Magnesium 2.5 mg/dl (1.6-2.3); Phosphorus 3.6 mg/dl (2.5-4.5); Potassium 4.9 mmol/L (3.5-5.1); Sodium 137 mmol/L (135-145); Total Bilirubin 0.7 mg/dl (0.2-1.3); Total Protein 4.2 g/dl (6.3-8.2); eGFR > 60.00
[2023-08-28] MEDS: LASIX 40 MG PO (08:28)
--- NOTE | 2023-08-28 08:30 | PTCARENOTE ---
0800 Pt mention did not feel well, Noted pt lungs Ronchi, expiratory wheeze and coughing. Pt on O2 3L pulse ox 95% , temp 98.2,HR 75 resp 24,BP 116/82. DR. Smith notified and here to see pt at bedside. Noted orders as per MD. Explain to pt, continue
to monitor pt closely.
[2023-08-28] MEDS: NON-FORMULARY ITEM 1 SPRAY NASAL (08:31)
[2023-08-28] MEDS: NON-FORMULARY ITEM 2 SPRAY NASAL ×2 (08:32→22:32)
[2023-08-28] MEDS: NON-FORMULARY ITEM 1 UNIT PO (08:32)
[2023-08-28] MEDS: MIRALAX 17 GRAMS PO (08:33)
[2023-08-28] MEDS: DELTASONE 20 MG PO (08:35)
[2023-08-28] MEDS: CELEBREX 200 MG PO ×2 (08:35→22:31)
[2023-08-28] MEDS: ProAmatine 10 MG PO ×3 (08:35→18:32)
[2023-08-28] MEDS: FLOMAX 0.800000000000000044 MG PO (08:35)
[2023-08-28] MEDS: KCL 20 MEQ PO (08:36)
[2023-08-28] MEDS: COMPOUND MEDICATION TOPICAL ×2 (08:36→22:22)
[2023-08-28] MEDS: OSCAL 500 + D 500 MG PO ×2 (08:36→22:32)
[2023-08-28] MEDS: VITAMIN B1 100 MG PO (08:37)
[2023-08-28] MEDS: VITAMIN B-12 500 MCG PO (08:38)
[2023-08-28] MEDS: PROTONIX 40 MG PO (08:38)
--- NOTE | 2023-08-28 08:38 | PN.CDI ---
CDI
- -
CDI:
Physician Documentation Request
Admit Date: 08/16/23 22:18
Dear Doctor Luis,
Clinical Indicators:
Patient admitted with symptomatic hyponatremia.
08/27 PN,'Left Lower Lobe Consolidation on CT Imaging Left Lower Lobe Atelectasis'
08/27 ID note, 'Left lower lobe pneumonia...Recovery of Mycobacterium from [facility] sample- PCR negative for Mycobacterium tuberculosis; suspect RODRIGUEZ'
08/27 Pulmonary PN, 'Acute on chronic SOB -likely due to RODRIGUEZ...LLL consolidation - chronic since November 2022'
Antibiotics: IV Cefepime, currently on cefdinir.
08/24 Procalcitonin: <0.05
Based on the above, could you clarify in the progress notes, the appropriate diagnosis, that supports the above abnormalities and additional evaluation, monitoring and/or treatment rendered:
Left lower lobe pneumonia
Left lower lobe consolidation/atelectasis only with suspected RODRIGUEZ
Other
Use of terms such as suspected, likely, concern for, or probable (associated with a specific diagnosis that is being evaluated, monitored, or treated as if it exists) are acceptable and can be coded in the inpatient setting, when documented at the
time of discharge.
Thank you,
BERNARD Conner RN
CDI Specialist
available via tiger text
Please use your independent medical judgment in providing your response.
[2023-08-28] MEDS: OMNICEF 300 MG PO ×2 (08:40→22:31)
[2023-08-28] MEDS: Pyridium 100 MG PO ×3 (08:49→22:32)
[2023-08-28] MEDS: CYMBALTA DELAYED RELEASE 30 MG PO (08:49)
[2023-08-28 09:00] LABS: NT-proBNP 263 pg/ml
[2023-08-28 10:30] VITALS: BP 123/75
[2023-08-28 12:16] LABS: Hematocrit 24.6 % (37.0-47.0); Hemoglobin 8.2 g/dL (12.0-16.0)
--- NOTE | 2023-08-28 14:22 | CM ---
D/C on hold.
CXR today.
Continues on oxygen 3 liters.
Plan: home with hannah DUNCAN when stable.
Nuris/Hannah updated re no d/c today. Will touch base tomorrow.
--- NOTE | 2023-08-28 14:28 | W.PN.ONC ---
Addendum entered and electronically signed by Davi Reno, 08/28/23 16:31:
Agree with the impression and plan as outlined by ANASTASIA.Patient was independently examined and chart reviewed. It appears anemia is out of proportion to the degree of documented GI bleeding via hemorrhoids Consider further GI evaluation. Supportive
measures with transfusion as per parameters.
Original Note:
Today's Communication / Plan
-
08/28 Hgb 8.2, Hct 24.6
Transfuse as needed to maintain Hgb >7
Monitor CBC w/ diff daily
Quantify rectal bleeding
Colorectal consult per hospitalist
Consider EGD/capsule study outpatient
Flow cytometry pending
Physical therapy
Supportive care
Impression
Impression
Symptomatic Hypovolemic Hyponatremia related to over-diuresis.
Weakness Below Baseline
Left Lower Lobe Consolidation on CT Imaging
Left Lower Lobe Atelectasis
Small bibasilar pleural effusions
Small to moderate amount of pericardial effusion
Orthostatic Hypotension
Bright red blood through vagina and rectal areas
Bright Red Blood Per Rectum on 08/21/23
Normocytic Anemia
Paroxysmal Atrial Fibrillation s/p Ablation
Monoclonal B call lymphocytosis
Steroid-Induced Myopathy
Subjective/Objective
Subjective/Objective
Patient is very frustrated by her current situation and hospitalization. She reports weakness/muscle aches and persistent rectal bleeding. She states last episode of BRBPR was this morning and it is 'all blood'. She is very upset that the source of
bleeding has not been identified. 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
Vital Signs:
Vital Signs
Temp Pulse Resp BP Pulse Ox
98.2 F 79 18 116/82 95
08/28/23 07:00 08/28/23 07:51 08/28/23 07:51 08/28/23 07:00 08/28/23 09:00
physical exam:
aaox3, anxious
HRR, murmur
Lungs coarse, 3L oxygen
trace bilateral edema
Lab Results:
Laboratory Data
WBC 11.1 10^3/uL (4.8-10.8) H 08/28/23 07:05
Hgb 8.2 g/dL (12.0-16.0) L 08/28/23 12:03
Plt Count 245 10^3/uL (130-400) 08/28/23 07:05
PT 12.6 Sec (11.4-14.6) 08/19/23 13:02
INR 0.96 08/19/23 13:02
APTT 22.9 Sec (23.4-35.0) L 08/19/23 13:02
eGFR > 60.00 08/28/23 07:05
[2023-08-28 15:00] VITALS: BP 96/56
[2023-08-28] MEDS: VITAMIN D3 (cholecalciferol) 25 MCG PO (18:32)
[2023-08-28] MEDS: VITAMIN C 500 MG PO (18:33)
[2023-08-28 20:59] LABS: Haptoglobin 55 mg/dL (30-200)
[2023-08-28] MEDS: ESTRACE 0.01% VAGINAL CREAM VAG (22:22)
[2023-08-28 22:30] VITALS: BP 123/75
[2023-08-28] MEDS: CYMBALTA DELAYED RELEASE 60 MG PO (22:31)
[2023-08-28] MEDS: DALIRESP 500 MCG PO (22:32)
[2023-08-28] MEDS: SINGULAIR 10 MG PO (22:32)
[2023-08-28 23:30] VITALS: BP 123/75
--- NOTE | 2023-08-28 23:30 | PTCARENOTE ---
Pt ambulated to bathroom, while in bathroom she used call fenton to make RN aware of being DOW. Pt rested seated in rollator for a couple minutes and then stated she was fine to get back to bed. Pt was assisted by nurse back into bed. Pt made aware to
use call fenton when needing to get up out of bed. Pt agreeable.
[2023-08-28] MEDS: TYLENOL 650 MG PO (23:51)
[2023-08-28] MEDS: XANAX 0.5 MG PO (23:51)
[2023-08-29] MEDS: XOPENEX 0.63 MG INHALANT SOLUTION 0.630000000000000004 MG INH ×4 (02:07→20:13)
[2023-08-29 06:00] VITALS: BMI 21.8
[2023-08-29] MEDS: NEURONTIN 600 MG PO ×3 (06:16→22:09)
[2023-08-29] MEDS: TESSALON PERLES 100 MG PO ×2 (06:16→23:33)
[2023-08-29] MEDS: SYNTHROID 112 MCG PO (06:17)
--- NOTE | 2023-08-29 07:36 | W.PN.HOSP.TC ---
Addendum entered and electronically signed by Flavio Smith MD 08/30/23 07:49:
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
Original Note:
Today's Communication/Plan
-
discontinue celecoxib
monitor H&H
transfuse goal Hgb>7 patient will need pretreatment Benadryl d/t hx rxn
NPO after midnight for CRS eval under anesthesia
discontinue celecoxib, tramadol prn ordered instead
Assessment / Plan
Assessment / Plan
Physical Exam
General: Not in acute distress -
HEENT: Normocephalic, Atraumatic
Respiratory: wheezing
Cardiac: Regular Rhythm and S1/S2
GI: Soft, Nontender and Nondistended. Positive bowel sounds.
Musculoskeletal: No Clubbing, No Cyanosis and No Edema

CT Head without IV contrast appreciated No acute intracranial abnormality
CT Chest W/o Iv Contrast appreciated Left base consolidation and/or atelectasis, small amount of right base atelectasis with shift of the mediastinum toward the left. Limited exam without IV contrast. No discrete mediastinal or hilar mass
identified however repeat imaging with IV contrast after treatment was recommended to exclude an occult process. Small bibasilar pleural effusions. Small to moderate amount of pericardial effusion
ECHO appreciated
Normal biventricular size and systolic function without regional wall motion
abnormality.
No significant valvular disease.
No prior study available for comparison
Assessment/Plan
Symptomatic Hypovolemic Hyponatremia related to over-diuresis. Feels weak, unable to walk, feels confused
- Hold metolazone
- Resumed Lasix 40 mg 08/22/23 daily as opposed to BID as was her home regimen prior, later discontinued as per cardio recommendations, later resumed d/t lower ext swelling weeping as per patient 08/29
- Celebrex initially held, resumed as below, placed on hold with worsening anemia and persistent rectal bleeding last dose 08/29 in AM
- IVF completed
- Na improved 130s
- Okay to continue Duloxetine
Acute Confusion/Encephalopathy - Resolved
Generalized Weakness Below Baseline
Left Lower Lobe Consolidation on CT Imaging
Left Lower Lobe Atelectasis
Suspected COPD Exacerbation
Cough, Rhonchi
-UA (urine culture with no growth), Influenza (negative), COVID (negative), Ammonia (low), Coagulation Studies (okay), Serum osmoles (okay), Blood cultures (no growth to date), TSH (low but T4 wnl - outpatient follow up), Vitamin B12 (high)
-Cortisol (in the morning) was low at 1.3 -- likely suppression d/t steroids
-CT Head unremarkable
-Thiamine 100 mg PO daily
Small bibasilar pleural effusions
Small to moderate amount of pericardial effusion
-Cardiology consult appreciated
-Echocardiogram ordered, results are above
-On echo, pericardial effusion is trivial
Orthostatic Hypotension
Dizziness/Lightheadedness on Standing
-patient not tolerating abd binder, has been using TEDs only
-cardio consult appreciated, midodrine increased to 10 mg TID, cardizem and lasix discontinued (later resumed as above), compression to be increased patient however not tolerating
Bright red blood through vagina and rectal areas
Bright Red Blood Per Rectum on 08/21/23
-Monitor Hgb
-outpatient OBGYN follow up
GI eval appreciated Colonoscopy performed 08/27
� � � � � � � � � � � - Non-bleeding internal and external hemorrhoids.
�� � � � � � � � � � � - Diverticulosis in the entire examined colon.
�� � � � � � � � � � � - The examination was otherwise normal.
�� � � � � � � � � � � - One 4 mm polyp in the descending colon, removed with
�� � � � � � � � � � � a jumbo cold forceps. Resected and retrieved.
�� � � � � � � � � � � - One 8 mm polyp in the ascending colon, removed with
�� � � � � � � � � � � a hot snare. Resected and retrieved.
Bleeding and anemia persisted worsened
CTA abd pelvis appreciated no active bleeding
flex sig performed 08/29 anal fissure and hemorrhoids noted
CRS eval appreciated concern anal fissure possibly necrotic hemorrhoid npo after midnight for Rectal examination under anesthesia, cardiac and pulm risk stratifications appreciated
Normocytic Anemia
Anemia of Chronic Disease
Patient reports remote history adverse rxn blood transfusion hives all over
Monoclonal B cell lymphocytosis
-Iron Studies appreciated AOCD with Iron level wnl
-Vit B12 non-deficient
-Hematology Eval Appreciated
Hypokalemia resolved at this time
-monitor and replete as necessary
Chronic dean catheter, requires Flomax
Recent Urethral Bleeding from a Urinary Catheter
Uretheral Prolapse
Bladder Spasms
Reported urinary clots
-Urology consult appreciated, cont outpt follow up with her urologist at [facility]
-Suspected atrophic vaginitis, Estrace cream started, vaginal bleeding since resolved, outpt obgyn follow up
Severe COPD
Prior history of severe persistent asthma
Chronic Hypoxic Respiratory Failure
Acute on chronic SOB due to recent episodes of strep PNA followed by COVID with deconditioning and CHF
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
-Recent admissions for Strep pneumonia and COVID
-Patient alternates 6 weeks coarse of doxycycline and Ceftin - Currently on doxycycline
-Continue prednisone as prior to admission, currently tapering down 10mg every 5 days to baseline 5mg
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
-tapered from 30 mg to 20 mg starting 08/24 converted to IV decadron as per pulm 08/29 due to significant wheezing
-Continue Daliresp
-Continue fluticasone and salmeterol
-Continue levalbuterol prn
-Pulm eval appreciated
-Bronchoscopy performed on 08/22/23: follow bronchoalveolar lavage and cultures results acid fast bacilli positive pending speciation, PCR for TB however neg
-Infectious Disease consulted appreciated, Cefepime converted to cefdinir, no need for isolation/quarantine at this time. Cefdinir to complete 08/29
Paroxysmal Atrial Fibrillation s/p Ablation
-Patient is not on anticoagulation as outpatient
-Continue diltiazem discontinued as above
Sacrum Healing Stage 3 pressure injury, POA
-Continue wound care
Anxiety/Depression
Continue Duloxetine and alprazolam
Hypothyroidism
-Continue levothyroxine
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
-Continue gabapentin and duloxetine
-Gabapentin at max dose 1800 mg at 3 divided doses for her Cr clearance, considering transition to pregabalin if pain control remains insufficient
Arthritis
-home celecoxib resumed 08/25, discontinued 08/29 d/t worsening anemia persistent rectal bleed, tramadol prn ordered
Environment/Seasonal Allergies
-Continue fexofenadine and montelukast
History of Steroid-Induced Myopathy
PT/OT appreciated Rehab vs Home PT
DVT proph: (Previously Lovenox discontinued due to Bleeding as above) TERRI stockings, SCD ordered
GI ppx: protonix
Code Status: DNR/DNI
I spent a total of 55 minutes with the patient or on the floor. More than 50% of this time involved counseling and coordination of care.
Anticipated Discharge: 24 - 48 hours
Subjective/Interval History
-
Date of Service: August 29, 2023
Endorsed lower extremities swelling with weeping in morning sheets soaked. Patient also continues to endorse blood in bowel movements or with Flatus
Objective Data
-
Labs:
Laboratory Results
08/29/23
07:01
WBC Pending
Hgb Pending
Hct Pending
Plt Count Pending
Sodium Pending
Potassium Pending
Chloride Pending
Carbon Dioxide Pending
BUN Pending
Creatinine Pending
Glucose Pending
Calcium Pending
Total Bilirubin Pending
AST Pending
ALT Pending
Alkaline Phosphatase Pending
Vital Signs:
Vital Signs
Temp Pulse Resp BP Pulse Ox
97.9 F 87 20 123/75 90
08/28/23 22:30 08/28/23 22:30 08/28/23 22:30 08/28/23 22:30 08/28/23 22:30
I&O
08/28/23 08/29/23 08/30/23
06:59 06:59 06:59
Intake Total 960 / 960 1320 / 1320
Output Total 600 / 600
Balance 960 / 960 720 / 720
[2023-08-29] MEDS: NON-FORMULARY ITEM 2 INH INH ×2 (07:43→20:16)
[2023-08-29] MEDS: NON-FORMULARY ITEM 1 UNIT INH ×2 (07:43→20:15)
[2023-08-29 08:17] LABS: Hematocrit 22.3 % (37.0-47.0); Hemoglobin 7.5 g/dL (12.0-16.0); Mean Corp Hgb Conc. 33.6 g/dL (33.0-37.0); Mean Corpuscular Hgb 32.9 pg (27.0-31.0); Mean Corpuscular Volume 97.8 fL (81.0-99.0); Mean Platelet Volume 9.4 fL (7.4-10.4); Platelet Count 233 10^3/uL (130-400); Red Blood Cell Count 2.28 10^6/uL (4.20-5.40); Red Cell Dist. Width 15.8 % (11.5-14.5); White Blood Cell Count 10.7 10^3/uL (4.8-10.8)
[2023-08-29 08:31] LABS: Number Of Markers 26 markers; Source Blood
[2023-08-29] MEDS: NON-FORMULARY ITEM 1 SPRAY NASAL (08:45)
[2023-08-29] MEDS: CELEBREX 200 MG PO (08:45)
[2023-08-29] MEDS: DELTASONE 20 MG PO (08:46)
[2023-08-29] MEDS: CYMBALTA DELAYED RELEASE 30 MG PO (08:46)
[2023-08-29] MEDS: COMPOUND MEDICATION TOPICAL (08:46)
[2023-08-29] MEDS: FLOMAX 0.800000000000000044 MG PO (08:46)
[2023-08-29] MEDS: MIRALAX 17 GRAMS PO (08:47)
[2023-08-29] MEDS: KCL 20 MEQ PO (08:47)
[2023-08-29] MEDS: NON-FORMULARY ITEM 2 SPRAY NASAL ×2 (08:47→22:07)
[2023-08-29] MEDS: NON-FORMULARY ITEM 1 UNIT PO (08:48)
[2023-08-29] MEDS: OMNICEF 300 MG PO (08:48)
[2023-08-29] MEDS: OSCAL 500 + D 500 MG PO ×2 (08:48→22:09)
[2023-08-29] MEDS: ProAmatine 10 MG PO ×3 (08:48→20:02)
[2023-08-29] MEDS: Pyridium 100 MG PO ×3 (08:49→22:09)
[2023-08-29] MEDS: VITAMIN B-12 500 MCG PO (08:49)
[2023-08-29] MEDS: VITAMIN B1 100 MG PO (08:49)
[2023-08-29] MEDS: PROTONIX 40 MG PO (08:49)
[2023-08-29 08:58] LABS: ALT (SGPT) 18 U/L (0-35); AST (SGOT) 17 U/L (14-36); Albumin 2.3 g/dl (3.5-5.0); Alkaline Phosphatase 33 U/L (38-126); Blood Urea Nitrogen 12 mg/dl (7-17); Calcium 8.8 mg/dl (8.4-10.2); Carbon Dioxide 33 mmol/L (22-30); Chloride 103 mmol/L (98-107); Estimated Creatinine Clearance 74 ml/min; Glucose 78 mg/dl (70-99); Magnesium 2.4 mg/dl (1.6-2.3); Phosphorus 3.6 mg/dl (2.5-4.5); Potassium 3.9 mmol/L (3.5-5.1); Sodium 137 mmol/L (135-145); Total Bilirubin 0.7 mg/dl (0.2-1.3); Total Protein 4.2 g/dl (6.3-8.2); eGFR > 60.00
[2023-08-29 09:01] VITALS: BP 109/65
[2023-08-29] MEDS: LASIX 40 MG PO (09:02)
[2023-08-29 10:03] LABS: Hematocrit 23.8 % (37.0-47.0); Hemoglobin 7.8 g/dL (12.0-16.0)
[2023-08-29] MEDS: METAMUCIL, KONSYL PO (10:24)
--- NOTE | 2023-08-29 11:47 | CON.CRS ---
Consultation
-
Performing Provider: Baljinder Pina MD
Reason for Consultation: rectal bleeding
Medical History
-
History of Present Illness:
Patient is a 72-year-old with PMH of severe asthma (on biologic therapy), recent Strep pneumo pna on 07/07/23, paroxysmal A-fib, hypothyroidism, chronic LLL consolidation (first dx in 11/2022) who initially presented with hyponatremia on 08/16,
worsening asthma/SOB on , echo on 08/20 with EF 60%, s/p bronch on 08/22 with BAL (+acid fast). She had developed GI bleeding during the hospital course on 08/20 with associated drift in Hb (08/18 Hb 11.3, 08/20 Hb 11.7, 08/24 Hb 9.2, 08/28 Hb 8.2, no
transfusions yet). GI performed a colonoscopy on 08/27, which showed non-bleeding hemorrhoids, diverticula, and 2 polyps. CRS is consulted for her internal hemorrhoids.
She states for the last several days she has been having blood per rectum, mostly with BMs but sometimes in between BMs. She has about 3-4 episodes a day and describes it as bright red. She denies any abdominal pain. She states that she has had
hemorrhoids for many years, but never like this.
Past Medical History
Past Surgical History: Other (Hysterectomy, right hip replacement, cataract surgery, back surgery)
Social History
Tobacco: Former Smoker
Alcohol: None
Drug: None
Family History
Family History: Other (colon CA remote family)
Allergies / Home Medications
Allergy/AdvReac Type Severity Reaction Status Date / Time
alendronate sodium Allergy abd pain, Verified 08/19/23 05:53
[From Fosamax] diarrhea
azithromycin Allergy Rash Verified 11/20/22 14:52
calamine Allergy Rash Verified 08/16/23 23:53
camphor Allergy Shortness Verified 08/19/23 16:08
of Breath
chlorhexidine Allergy Shortness Verified 02/13/24 16:08
of Breath
codeine Allergy Rash Verified 11/20/22 14:52
glucose [From Gammagard S/D] Allergy Unknown Verified 08/19/23 16:08
glycine [From Gammagard S/D] Allergy Unknown Verified 08/19/23 16:08
IgA less than or equal to 50 Allergy Unknown Verified 08/19/23 16:08
mcg/mL
[From Gammagard S/D]
immune globulin,gamma (IgG) Allergy Unknown Verified 08/19/23 16:08
human
[From Gammagard S/D]
latex Allergy Rash Verified 08/16/23 23:52
morphine Allergy Rash Verified 11/20/22 14:52
tetanus toxoid, adsorbed Allergy Rash Verified 11/20/22 14:52
tuberculin, purified protein Allergy Rash Verified 11/20/22 18:54
deriva
blood transfusion Allergy Hives Uncoded 08/19/23 16:08
Medication Instructions Recorded Confirmed Type
azelastine 137 mcg (0.1 %) nasal 1 spray intranasal DAILY Allergies 11/20/22 08/17/23 History
spray aerosol
celecoxib 200 mg capsule 200 mg PO BID Pain 11/20/22 08/17/23 History
fexofenadine 180 mg tablet 180 mg PO DAILY Allergies 11/20/22 08/17/23 History
fluticasone propionate 50 2 spray intranasal BID Allergies 11/20/22 08/17/23 History
mcg/actuation nasal
spray,suspension
gabapentin 300 mg capsule 300 mg PO HS Pain 11/20/22 08/17/23 History
gabapentin 600 mg tablet 600 mg PO TID@0700,1500,2200 Pain 11/20/22 08/17/23 History
krill oil 1 cap PO DAILY Supplement 11/20/22 08/17/23 History
levothyroxine 112 mcg tablet 112 mcg PO MOWEFR@07 Thyroid 11/20/22 08/17/23 History
levothyroxine 125 mcg tablet 125 mcg PO SUTUTHSA@07 Thyroid 11/20/22 08/17/23 History
montelukast 10 mg tablet 10 mg PO HS Lung/breathing issues 11/20/22 08/17/23 History
doxycycline hyclate 100 mg capsule 100 mg PO BID #60 caps 11/25/22 08/17/23 Rx
Citracal plus D 1 tab PO BID Supplement 07/03/23 08/17/23 History
ascorbic acid (vitamin C) 500 mg 500 mg PO QPM Supplement 07/03/23 08/17/23 History
tablet (Vitamin C)
cefuroxime axetil 500 mg tablet 500 mg PO BID Infection 07/03/23 08/16/23 History
cholecalciferol (vitamin D3) 25 25 mcg PO .4 TIMES A WEEK@1700 07/03/23 08/17/23 History
mcg (1,000 unit) tablet Supplement
cyanocobalamin (vitamin B-12) 500 mcg PO DAILY Supplement 07/03/23 08/17/23 History
1,000 mcg tablet
duloxetine 30 mg capsule,delayed 30 mg PO DAILY Depression 07/03/23 08/17/23 History
release
fluticasone furoate 200 2 inh inhalation R BID 07/03/23 08/17/23 History
mcg/actuation blister powder for Lung/Breathing Issues
inhalation
levalbuterol tartrate 45 1 puff inhalation R Q8HPRN PRN sob 07/03/23 08/17/23 History
mcg/actuation aerosol inhaler
roflumilast 500 mcg tablet 500 mcg PO HS Lung/Breathing Issues 07/03/23 08/17/23 History
(Daliresp)
salmeterol 50 mcg/dose blister 1 inh inhalation R BID 07/03/23 08/17/23 History
powder for inhalation (Serevent Lung/Breathing Issues
Diskus)
turmeric 400 mg capsule 400 mg PO BID Supplement 07/03/23 08/17/23 History
alprazolam 0.5 mg tablet 0.5 mg PO HS #3 tabs 07/12/23 08/17/23 Rx
levalbuterol HCl 1.25 mg/3 mL 1.25 mg (3 mL) inhalation R Q6HPRN 07/12/23 08/17/23 Rx
solution for nebulization PRN sob/wheeze #0 mL
diltiazem HCl 30 mg tablet 30 mg PO TID Blood Pressure 08/16/23 08/17/23 History
furosemide 40 mg tablet (Lasix) 40 mg PO BID@0800,1600 Fluid 08/16/23 08/23/23 History
Retention/Swelling
metolazone 2.5 mg tablet 2.5 mg PO DAILY Fluid 08/16/23 08/16/23 History
Retention/Swelling
midodrine 2.5 mg tablet 2.5 mg PO DAILY@1400 Blood Pressure 08/16/23 08/17/23 History
midodrine 5 mg tablet 5 mg PO DAILY Blood Pressure 08/16/23 08/17/23 History
phenazopyridine 100 mg tablet 100 mg PO TID Urinary Issue 08/16/23 08/17/23 History
(Pyridium)
prednisone 10 mg tablet 30 mg PO DAILY Anti-Inflammatory 08/16/23 08/17/23 History
Fluticasone Propionate (Flixotide) 2 inh inhalation R BID 08/17/23 08/17/23 History
Lung/Breathing Issues
Tylenol Arthritis 1,300 PO BID Pain 08/17/23 History
benzonatate 100 mg capsule 200 mg PO TID Cough 08/17/23 08/17/23 History
duloxetine 60 mg PO QPM Depression 08/17/23 08/17/23 History
tamsulosin 0.8 mg PO DAILY Urinary Issue 08/17/23 08/23/23 History
Review of Systems
-
A 10 point review of systems was completed, and was negative except as per HPI.
Physical Exam
Vital Signs
Temp 97.9 F 08/28/23 22:30
Pulse 108 08/29/23 09:01
Resp Rate 22 08/29/23 09:01
Blood pressure 109/65 08/29/23 09:01
SaO2 94 08/29/23 09:01
08/28/23 08/29/23 08/30/23
06:59 06:59 06:59
Actual Weight 57.663 kg 57.606 kg
Body Mass Index (BMI) 21.8
Lab Results / Allergies
08/29/23 08:58
08/29/23 07:01
WBC 10.7 10^3/uL (4.8-10.8) 08/29/23 07:01
Hgb 7.8 g/dL (12.0-16.0) L 08/29/23 08:58
Hct 23.8 % (37.0-47.0) L 08/29/23 08:58
Plt Count 233 10^3/uL (130-400) 08/29/23 07:01
Abs Immat Gran (auto) 0.3 10^3/uL (0-0.05) H 08/22/23 07:16
Neutrophils % 44.0 % (42.2-75.2) 08/22/23 07:16
Allergy/AdvReac Type Severity Reaction Status Date / Time
alendronate sodium Allergy abd pain, Verified 08/19/23 05:53
[From Fosamax] diarrhea
azithromycin Allergy Rash Verified 11/20/22 14:52
calamine Allergy Rash Verified 08/16/23 23:53
camphor Allergy Shortness Verified 08/19/23 16:08
of Breath
chlorhexidine Allergy Shortness Verified 08/19/23 16:08
of Breath
codeine Allergy Rash Verified 11/20/22 14:52
glucose [From Gammagard S/D] Allergy Unknown Verified 08/19/23 16:08
glycine [From Gammagard S/D] Allergy Unknown Verified 08/19/23 16:08
IgA less than or equal to 50 Allergy Unknown Verified 08/19/23 16:08
mcg/mL
[From Gammagard S/D]
immune globulin,gamma (IgG) Allergy Unknown Verified 08/19/23 16:08
human
[From Gammagard S/D]
latex Allergy Rash Verified 08/16/23 23:52
morphine Allergy Rash Verified 11/20/22 14:52
tetanus toxoid, adsorbed Allergy Rash Verified 11/20/22 14:52
tuberculin, purified protein Allergy Rash Verified 11/20/22 18:54
deriva
blood transfusion Allergy Hives Uncoded 08/19/23 16:08
Physical Exam
General: Well Developed and No Apparent Distress
HEENT: Normocephalic and Atraumatic
Respiratory: Other (Dyspnea in supine position, nasal cannula in place)
GI: Soft, Non Tender and Non Distended
Rectal: Other (Swollen anal verge associated with skin tags and external hemorrhoids-nonthrombosed, no obvious prolapsed internal hemorrhoids, no gross blood on ANNA)
Skin: Warm and Dry
Neuro: AO x 3
Assessment / Plan
-
72-year-old with PMH of severe asthma (on biologic therapy), recent Strep pneumo pna on 07/07/23, paroxysmal A-fib, hypothyroidism, chronic LLL consolidation (first dx in 11/2022) who initially presented with hyponatremia on 08/16, worsening asthma/SOB
on NC, echo on 08/20 with EF 60%, s/p bronch on 08/22 with BAL (+acid fast). She had developed GI bleeding during the hospital course on 08/20 with associated drift in Hb (08/18 Hb 11.3, 08/20 Hb 11.7, 08/24 Hb 9.2, 08/28 Hb 8.2, no transfusions yet). GI
performed a colonoscopy on 08/27, which showed non-bleeding hemorrhoids, diverticula, and 2 polyps. CRS is consulted for her internal hemorrhoids
�Had extensive discussion with patient; description of bleeding seems atypical and excessive for hemorrhoidal bleeding as hemorrhoidal bleeding usually does not cause a drop in hemoglobin, but it is certainly possible; currently, patient with
serious respiratory deconditioning with associated LLL pneumonia requiring nasal cannula; she appears at elevated pulmonary risk for surgery; therefore, would treat her hemorrhoids with nonoperative therapies and continue the workup for her GI bleed
to rule out other sources; if surgery becomes necessary for her hemorrhoids, would need preoperative risk stratification with cardiology and pulmonology for appropriate risk/benefits discussion
-Start Anusol cream twice daily, Calmol 4 suppositories 4 times daily, and fiber supplementation
�Agree with further workup of lower GI bleed with CTA; may need upper endoscopy +/- VCE; appreciate GI
�Ok for diet, but recommend NPO at midnight in case surgery for hemorrhoids becomes necessary
-Cont trending Hb, transfuse PRN; hold all AC
-Remainder of care per primary
--- NOTE | 2023-08-29 12:11 | PN.CDI ---
CDI
- -
CDI:
Physician Documentation Request
Admit Date: 08/16/23 22:18
Dear Doctor Luis,
Clinical Indicators:
Patient admitted with hypovolemic hyponatremia.
08/16 H & P, 'She admits to still feeling short of breath and experiences intermittent coughing without sputum production.'
08/19 CXR, 'Left basilar pneumonia or atelectasis.'
08/[address], 'Shift of the mediastinum to the left due to the significant atelectasis and consolidation in the left lung base.'
08/20 ID consult,'Given ongoing cough, and findings on CT, will initiate cefepime 2 g IV every 12 hours.'
08/29 PN, 'Left Lower Lobe PNA present, suspected RODRIGUEZ coinfection.'
Please clarify the following:
Left Lower Lobe PNA , suspected RODRIGUEZ coinfection were present on admission.
Left Lower Lobe PNA, suspected RODRIGUEZ coinfection evolved during hospitalization.
Unable to determine
Use of terms such as suspected, likely, concern for, or probable (associated with a specific diagnosis that is being evaluated, monitored, or treated as if it exists) are acceptable and can be coded in the inpatient setting, when documented at the
time of discharge.
Thank you,
BERNARD Conner RN
CDI Specialist
available via tiger text
Please use your independent medical judgment in providing your response.
[2023-08-29] MEDS: ProAmatine PO (13:06)
[2023-08-29 13:09] LABS: Iron 85 ug/dl (37-170)
--- NOTE | 2023-08-29 13:11 | W.PN.GI.CBS2 ---
Today's Communication / Plan
-
Flex Sig today
Assessment / Plan
-
72 yo F pmh as below here with recurrent PNA s/p bronch.� GI consult for rectal bleeding.� She previously had constipation which has resolved with bowel regimen.� Patient never had cscope.
s/p rectal 08/[address] Allison with , large external hemorrhoids she does have some pinpoint pain so could also have an anal fissure. Recurrent rectal bleeding with drop in Hgb and negative CTA. Discussed with patient and daughter. CRS has
evaluated patient as well.
08/27/23 Colonoscopy (Do)
�- Preparation of the colon was fair.
�� � � � � � � � � � � - Non-bleeding internal and external hemorrhoids.
�� � � � � � � � � � � - Diverticulosis in the entire examined colon.
�� � � � � � � � � � � - The examination was otherwise normal.
�� � � � � � � � � � � - One 4 mm polyp in the descending colon, removed with
�� � � � � � � � � � � a jumbo cold forceps. Resected and retrieved.
�� � � � � � � � � � � - One 8 mm polyp in the ascending colon, removed with
�� � � � � � � � � � � a hot snare. Resected and retrieved.
Impression:
-rectal bleeding
-rectal pain with concern for fissure
-ortho stasis
-LL PNA
-hx PAF
-hypothyroidism
-gait dysfunction
-hx steroid induced myopathy
PLAN:
-Flex sig unsedated today
-If with recurrent bleeding to contact RN immediately and Nuc Med bleeding scan can be ordered at we cannot repeat CTA given dye load for at least another 24-48 hrs.
-reviewed with Dr. Tapia remain intermediate risk from pulm standpoint for sedation
-also reviewed with ID now off isolation
-Trend Hgb
-Discussed with IM and daughter.
Appt: 09/01 at 8am with Trinh PERRY currently made will need to decide if need to cancel appt if proceeding IP for testing
Subjective
Subjective
Date of Service: August 29, 2023
Askexd to re-eval patient as she had episodes of rectal bleeding and clots. Hgb has decreased from 8.1 to 7.8 in the past 24 hrs. Patient without any abdominal pain. She ate breakfast at 7 am this am, has been NPO since. CTA without any active signs
of bleeding. CRS has been in to see patient. Discussed with Patient as well as her daughter Jerrica (OR Nurse over the phone) and with Medicine Attending.
Objective
Data Reviewed
Laboratory Data:
Laboratory Results
08/29/23 08:58
08/29/23 07:01
Laboratory Results
PT 12.6 Sec (11.4-14.6) 08/19/23 13:02
INR 0.96 08/19/23 13:02
APTT 22.9 Sec (23.4-35.0) L 08/19/23 13:02
Phosphorus 3.6 mg/dl (2.5-4.5) 08/29/23 07:01
Magnesium 2.4 mg/dl (1.6-2.3) H 08/29/23 07:01
Total Bilirubin 0.7 mg/dl (0.2-1.3) 08/29/23 07:01
AST 17 U/L (14-36) 08/29/23 07:01
ALT 18 U/L (0-35) 08/29/23 07:01
Alkaline Phosphatase 33 U/L (38-126) L 08/29/23 07:01
Lipase 318 U/L (23-300) H 08/16/23 19:17
Vital Signs and I&O:
Vital Signs
Temp Pulse Resp BP Pulse Ox
97.9 F 108 22 130/74 94
08/28/23 22:30 08/29/23 09:01 08/29/23 09:01 08/29/23 13:06 08/29/23 09:01
I&O
08/28/23 08/29/23 08/30/23
06:59 06:59 06:59
Intake Total 960 / 960 1320 / 1320
Output Total 600 / 600
Balance 960 / 960 720 / 720
Physical Exam
Physical Exam
HEENT: Anicteric
Cardiology: Normal Sinus Rhythm
Pulmonary: Other (scattered rhonchi)
GI: Soft, Non Distended, Non Tender and Normal Bowel Sounds
Extremities: No Edema
Neuro: Non Focal
With patient permission and RN management supervisor (Mckenzie) limited vaginal exam performed as patient previously states she was having vaginal bleeding. Gloved lubricated finger without bleeding noted, the introitus with edema and urethra with edema/erythema
as well. Patient tells me she is s/p hysterectomy but still has cervix. Recommend follow up with Affiliate Marketing Manager.
[2023-08-29 13:19] LABS: Percent Saturation 44 % (20-50); Total Iron Binding Capacity 189 ug/dl (265-497)
--- NOTE | 2023-08-29 13:49 | PTCARENOTE ---
Tap water enema 500ML given as ordered. Return of water ans some blood drops and few clots. Pt is c/o chest pain and is very anxious about this procedure. Pt stated swallowing a lot of air and is noted to be belching. GI RN Josefina aware.
--- NOTE | 2023-08-29 14:13 | CM ---
Patient seen bedside.
Discharge on hold.
Continues with oxygen via [place] (has at home already)
CT scan and flex sig today for decreased hgb.
[facility]. Family will transport.
[2023-08-29 14:20] LABS: Vitamin B12 > 1000 pg/ml (239-931)
[2023-08-29 14:54] VITALS: BP 102/73
--- NOTE | 2023-08-29 15:03 | W.PN.CD ---
Today's Communication / Plan
-
- No further cardiac evaluation is indicated since it is unlikely to change her management/risk -> she is cleared for anesthesia.
- IV diltiazem can be used if she develops sustained SVT during the case. By report, she had PACs during GI procedure.
Impression / Plan
-
Impression: 72F with SVT (PAF, atrial flutter, and AT have been identified) admitted with hyponatremia. She is now headed for rectal exam under anesthesia and we are asked to comment on her cardiac risk.
Plan:
Preoperative risk evaluation: She denies chest pain, palps, or dyspnea. Before her recent admissions, she was walking two miles daily. Her revised cardiac risk index is zero. Her EKG and echocardiogram are reassuring.
- No further cardiac evaluation is indicated since it is unlikely to change her management/risk -> she is cleared for anesthesia.
- IV diltiazem can be used if she develops sustained SVT during the case. By report, she had PACs during GI procedure.
- Pulmonary clearance pending
Orthostatic hypotension:
-multifactorial- deconditioning, low albumin, diuretic use when she isn't volume overloaded
-symptoms seemed to start with diltiazem, which has been stopped here
-continue midodrine and she will call cardiology office if SBP consistently >120, for instructions on this medicine.
-encouraged exercise/ambulation
Rectal bleeding
Volume overload: Stable
Arrhythmia:
-h/o PAF with ablation 2017 [facility] (not on AC), PAT with ?flutter last admission, but not AFIB.
-currently sinus
-stable off diltiazem
-there was plan for 2 week monitor as OP, but was not done. Will arrange for about 2 months, then f/u with Dr. Cedeño 3 months.
-consider OAC as OP with Dr. Cedeño
Dispo - please call us back with changes/questions
Subjective:
She denies chest pain, palps, or dyspnea
Echo Aug 2023 - normal
Laboratory Data
08/28/23 08/29/23 08/29/23
07:05 07:01 08:58
Hgb 7.8 L
Creatinine 0.6
Hjw-Q-Dmdzxhsoxyz Pept 263
Generic Name Dose Route Start Last Admin
Trade Name Niesha PRN Reason Stop Dose Admin
Diltiazem HCl 30 mg 08/17/23 06:27
Diltiazem 30 Mg Regular Release Tablet PO 09/13/23 23:06
TID@0600,1400,2200 NIESHA
Potassium Chloride 20 meq 08/17/23 15:00
Potassium Chloride 20 Meq Extended Release Tablet PO 09/14/23 14:59
DAILY NIESHA
Midodrine 10 mg 08/24/23 18:00
Midodrine 5 Mg Tablet PO 09/21/23 17:59
TID@0800,1300,1800 NIESHA
Furosemide 40 mg 08/29/23 09:00
Furosemide 40 Mg Tablet PO 09/26/23 08:59
DAILY NIESHA
Physical Exam
Vital Signs/Labs
Vital Signs
Temp Pulse Resp BP Pulse Ox
36.7 C 101 18 102/73 95
08/29/23 14:54 08/29/23 14:54 08/29/23 14:54 08/29/23 14:54 08/29/23 14:54
08/28/23 08/29/23 08/30/23
06:59 06:59 06:59
Actual Weight 127 lb 2 oz 127 lb
08/29/23 08:58
08/29/23 07:01
PT 12.6 Sec (11.4-14.6) 08/19/23 13:02
INR 0.96 08/19/23 13:02
APTT 22.9 Sec (23.4-35.0) L 08/19/23 13:02
Magnesium 2.4 mg/dl (1.6-2.3) H 08/29/23 07:01
Free T4 1.19 ng/dl (0.78-2.19) 08/19/23 13:02
08/28/23
07:05
Gyy-C-Aavelptbpai Pept 263
Physical Exam
Constitutional: No acute distress and Comfortable
EENT: Anicteric and Moist mucous membranes
Cardiovascular: Rhythm & rate is regular, Systolic murmur absent, Diastolic murmur absent and Pedal edema present
Respiratory: Respiratory effort normal and Rhonchi Absent
GI: Soft, Distention absent and Non tender
Neuro/Psych: Alert
Data Reviewed
-
Date of Service: August 29, 2023
--- NOTE | 2023-08-29 15:06 | W.PN.PUL.V3 ---
Today's Communication / Plan
-
Supplemental oxygen as needed.
Intensify steroids
Continue nebulizers-nebulizer preprocedure as well as postprocedure
Prefer spinal anesthesia with sedation over intubation and mechanical ventilation/general anesthesia, however, if needed she carries a moderate risk for perioperative pulmonary complications
Once again the patient is cleared for proposed rectal exam under anesthesia
Assessment
-
Patient is a 72 year old F with PMH significant for PAF, severe persistent asthma, hypothyroidism admitted 08/16/23 for abnormal sodium (Na =122).� Patient was admitted here Jun for Strep pneumonia.� She was discharged to [facility]'s rehab
and then admitted to [facility] with COVVANESSA.� Patient states that she then began to develop increased edema/fluid retention in the legs.� She was started on a diuretic regimen consisting of BID Lasix and daily metolazone. In the past 12 hours, she notes
worsening cough/SOB.� Per daughter who provides history on the phone, this was a change that they witnessed since she's been admitted. They have requested pulmonary evaluation 08/19/23. Patient stabilized and pulmonary initially signed off 08/27/23
and pulmonary was consulted again . As surgery wants to do rectal exam under anesthesia and asking for perioperative risks. 08/29/23.
Symptomatic hypovolemic hyponatremia likely 2/2 over-diuresis -hyponatremia now resolved
Asthma-moderate persistent with acute exacerbation
GI bleed-felt to be secondary to rectal fissure and necrotic hemorrhoid
Acute Confusion/Encephalopathy related to above - confused resolved now
Generalized weakness
Chronic cough, nonproductive
Acute on chronic SOB -likely due to RODRIGUEZ
Urinary retention s/p Alicia
Severe persistent asthma requiring biologic therapy now with acute exacerbation
LLL consolidation - chronic since November 2022 (unknown if present prior to that as we do not have imaging before that time)
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
Adm Jul 2023 for Strep PNA with AE asthma
Adm November 2022: acute hypoxemic respiratory failure, CAP LLL infiltrate, markedly ^PCT, asthma exacerbation. Completed 5d cefepime
Severe asthma, on daliresp, fluticasone, montelukast, salmeterol
Follows up at [facility] and [facility]
Monoclonal B-cell lymphocytosis
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
AFib s/p ablation
Hypothyroidism
Hysterectomy
R hip replacement
Cataract surgery
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
Seasonal allergies
Intermittent epistaxis, historically L>>>R
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
Allergy to azithromycin
DNR
Plan
Respiratory status is not back to her baseline-still having significant coughing spells and wheezing
Continue supplemental oxygen-currently on 3 L-94% saturation.
Patient does not have prior history of oxygen use, however, while at rehabilitation, was receiving 3 L
Rest and exercise oximetry 08/25/23 revealed desaturations down to 92%.
She has prior history of severe persistent asthma, being managed by Dr Neely.
She was recently on a prednisone taper after Jul 2019 for admission.� She does feel better with oral steroid dosing.
Recent spirometry as outpatient demonstrating poor effort/cough throughout, but FEV1 1.63L 73%
Wheezing is still quite significant-will intensify steroids
Continue nebulizers-reviewed with TRANSPORTATION SPECIALIST
Singulair continues
Mucolytic's
Antitussives
Daliresp continues
Subsequently change to prednisone with taper
Continue fluticasone/serevent bid
Continue levalbuterol HFA/nebs prn
Suspect patient has acute on chronic SOB due to recent episodes of strep PNA followed by COVID with deconditioning and CHF
CXR 08/19/23 showing L basilar atelectasis but not significantly changed from prior, never had chest CT.
Repeat PFT showing decline but still within moderate range
6MWT pending: patient declined on 08-19
Other imaging reviewed, CT Chest obtained showing LLL consolidation, there is small pericardial effusion (trivial on TTE 08-20-23)
Patient is status post bronch with BAL on 08/22/23 -growing AFB, suspected to be RODRIGUEZ.� Follow-up sensitivities.� Follow-up fungus and bacterial culture. No lung biopsies.
Antibiotics per infectious disease
ECHO results in past reviewed--stable function
Patient's repeat ECHO on 08/20/2023 shows normal biventricular function.
Diuretics per primary team.
Given rectal bleeding. GI continues to follow.
Patient was cleared for colonoscopy, which patient tolerated well.
Patient is tolerated bronchoscopy as well as a colonoscopy
She is cleared for proposed operation, however, would prefer spinal anesthesia with light sedation
If intubation, mechanical ventilation and general anesthesia needed she carries a moderate risk for perioperative pulmonary complications including temporary mechanical ventilation-reviewed with patient as well as daughter who is a nurse at the
bedside-they understand the risks, however, would also prefer spinal anesthesia and sedation over general anesthesia
Patient reiterated that she was a DNR-I told her that if she needed temporary intubation it was a reversible process and we would be able to get her off the ventilator
DVT prophylaxis-mechanical
GI prophylaxis-pantoprazole.
Nutrition per GI.
Early mobilization
Reviewed with daughter-OR nurse at the bedside
Patient should follow up with Dr Neely in 3-4 wks-consider Biologics if cannot be weaned off prednisone and repeatedly requiring prednisone burst
Diagnostic Data
CXR 08/19/23- LLL atelectasis
CXR 07/10/23- IMPRESSION: There is consolidation in the left lower lobe consistent with improving pneumonia along with a left pleural effusion. There is probable atelectasis in the right lower lobe.
CXR 07-05-23: Progressed findings suggesting mild left lower lobe pneumonia; New moderate right lower lobe probable atelectasis; Mild cardiomegaly. Stable
CXR 07-03-23 c/w November 15 and 18 '23. Baseline films with improved LLL infiltrate but persistently blurred L diaphragm. Current films without gross infiltrates but suspicious for positive spine sign at L base
CT Chest 08/20/23: Left base consolidation and/or atelectasis, small amount of right base atelectasis with shift of the mediastinum toward the left. No discrete mediastinal or hilar mass identified however repeat imaging with IV contrast after
treatment is recommended to exclude an occult process. Small bibasilar pleural effusions. Small to moderate amount of pericardial effusion.
Spirometry 08/20/22: FEV1 1.21L 54%, FVC 1.46L 49%, ratio 83. Post FEV1 1.27L 57% no BD response. (mixed pattern, moderately reduced, decreased from prior testing but remains in moderate category)
PFT:
Spirometry 05/23/2023: FEV1/FVC 82%, FEV1 1.63 L-73%, FVC 1.97 L, 66%.� No airflow obstruction.� Patient has difficulty with the maneuvers due to coughing.
Kiron 12/17/22: unable.
6 MWT:
6MWT 12/17/22: At rest, O2 99% on room air, heart rate 82. With ambulation, O2 remained at 99 to 100% on room air, max heart rate 90. 5/10 on dyspnea scale. Only able to ambulate 150 feet
ECHO 07/08/23- �LV ejection fraction is 60-65%, by visual assessment. No regional wall motion�abnormalities are seen.�Normal right ventricular size and function.�No significant valvular disease.�No prior study available for comparison.
Subjective Data
-
Date of Service:
Date of Service: August 29, 2023
Chief Complaint: Pulmonary Follow Up and Dyspnea Follow Up
Subjective:
Continues to complain of coughing, wheezing, mucus is minimally productive, no chest pain, pleurisy, abdominal pain.
Review of Systems
General: Other ( Per HPI)
Objective Data
Data Reviewed
Vital Signs / I&O:
Vital Signs
Temp Pulse Resp BP Pulse Ox
98.0 F 101 18 102/73 95
08/29/23 14:54 08/29/23 14:54 08/29/23 14:54 08/29/23 14:54 08/29/23 14:54
Intake and Output
08/28/23 08/29/23 08/30/23
06:59 06:59 06:59
Intake Total 960 / 960 1320 / 1320
Output Total 600 / 600
Balance 960 / 960 720 / 720
SaO2: 95
Nasal Cannula flow liters per minute: 3
Physical Exam
General: Respiratory Distress (n), Comfortable and Other (NAD, deconditioned)
HEENT: Normocephalic, Anicteric and Moist Mucous Membranes
Cardiovascular: S1-S2, Regular Rhythm, JVD, Peripheral Edema (negative) and Calf Tenderness (n)
Respiratory: Wheeze (Diffuse expiratory), Crackles (left base), Rhonchi (negative), Non-Labored Respirations and Stridor (negative)
GI: Soft, Non Distended, Non Tender and Normal Bowel Sounds
Neurology: Awake, Alert and No Motor Deficits
Skin: Warm, Dry, Good Color, Cyanosis (n) and Jaundice (n)
Labs/Micro/Reports
Lab Data
08/29/23 08:58
08/29/23 07:01
Microbiology
08/22/23 09:56 Bronch Left Lower Lobe Fungal Culture - Preliminary
Yeast
[2023-08-29] MEDS: VITAMIN C 500 MG PO (16:55)
[2023-08-29] MEDS: MUCINEX 1200 MG PO (16:55)
[2023-08-29] MEDS: DECADRON 4 MG IV (16:55)
--- NOTE | 2023-08-29 20:12 | PTCARENOTE ---
Patient requesting 8pm meds to be given with 10 pm meds tonight.
[2023-08-29] MEDS: HYDROCORTISONE 2.5% CREAM TOPICAL (20:40)
[2023-08-29] MEDS: ESTRACE 0.01% VAGINAL CREAM VAG (20:41)
[2023-08-29] MEDS: ULTRAM 25 MG PO (22:08)
[2023-08-29] MEDS: SINGULAIR 10 MG PO (22:08)
[2023-08-29] MEDS: DALIRESP 500 MCG PO (22:09)
[2023-08-29] MEDS: CYMBALTA DELAYED RELEASE 60 MG PO (22:09)
[2023-08-29] MEDS: TYLENOL 650 MG PO (23:33)
[2023-08-29] MEDS: XANAX 0.5 MG PO (23:33)
[2023-08-29] MEDS: ESTRACE 0.01% VAGINAL CREAM 1 APPLIC VAG (23:50)
[2023-08-30 00:03] VITALS: BP 115/69
[2023-08-30] MEDS: DECADRON 4 MG IV ×3 (02:14→17:43)
[2023-08-30] MEDS: NEURONTIN PO (05:53)
[2023-08-30] MEDS: SYNTHROID PO (05:53)
[2023-08-30 06:00] VITALS: BMI 20.7
--- NOTE | 2023-08-30 07:37 | W.PN.HOSP.TC ---
Today's Communication/Plan
-
monitor H&H
transfuse goal Hgb>7 patient will need pretreatment Benadryl d/t hx rxn
Tentative plan for EGD rectal exam under anesthesia Friday with GI and CRS
cont steroids as per Pulm
Assessment / Plan
Assessment / Plan
Physical Exam
General: Not in acute distress -
HEENT: Normocephalic, Atraumatic
Respiratory: wheezing
Cardiac: Regular Rhythm and S1/S2
GI: Soft, Nontender and Nondistended. Positive bowel sounds.
Musculoskeletal: No Clubbing, No Cyanosis and No Edema

CT Head without IV contrast appreciated No acute intracranial abnormality
CT Chest W/o Iv Contrast appreciated Left base consolidation and/or atelectasis, small amount of right base atelectasis with shift of the mediastinum toward the left. Limited exam without IV contrast. No discrete mediastinal or hilar mass
identified however repeat imaging with IV contrast after treatment was recommended to exclude an occult process. Small bibasilar pleural effusions. Small to moderate amount of pericardial effusion
ECHO appreciated
Normal biventricular size and systolic function without regional wall motion
abnormality.
No significant valvular disease.
No prior study available for comparison
Assessment/Plan
Symptomatic Hypovolemic Hyponatremia related to over-diuresis. Feels weak, unable to walk, feels confused
- Metolazone discontinued
- Lasix reduced to 40 mg daily, continued for Lower ext swelling weeping likely chronic lymphedema (outpatient lymphedema clinic recommended)
- Celebrex initially held, resumed as below, placed on hold with worsening anemia and persistent rectal bleeding last dose 08/29 in AM
- IVF completed
- Na improved 130s
Acute Confusion/Encephalopathy - Resolved
Generalized Weakness Below Baseline
Left Lower Lobe Consolidation on CT Imaging
Left Lower Lobe Atelectasis
Suspected COPD Exacerbation
Cough, Rhonchi
-UA (urine culture with no growth), Influenza (negative), COVID (negative), Ammonia (low), Coagulation Studies (okay), Serum osmoles (okay), Blood cultures (no growth to date), TSH (low but T4 wnl - outpatient follow up), Vitamin B12 (non-deficient)
-Cortisol (in the morning) was low at 1.3 -- likely suppression d/t steroids
-CT Head unremarkable
-Thiamine 100 mg PO daily
Small bibasilar pleural effusions
Small to moderate amount of pericardial effusion
-Cardiology consult appreciated
-Echocardiogram ordered, results are above
-On echo, pericardial effusion is trivial
Orthostatic Hypotension
Dizziness/Lightheadedness on Standing
-patient not tolerating abd binder, has been using knee high TEDs only
-cardio consult appreciated, midodrine increased to 10 mg TID, cardizem and lasix discontinued (lasix later resumed reduced dose for lymphedema as above), LE compression NEO bandages applied
Bright red blood through vagina and rectal areas
Bright Red Blood Per Rectum on 08/21/23
-Monitor Hgb
-outpatient OBGYN follow up
GI eval appreciated Colonoscopy performed 08/27
� � � � � � � � � � � - Non-bleeding internal and external hemorrhoids.
�� � � � � � � � � � � - Diverticulosis in the entire examined colon.
�� � � � � � � � � � � - The examination was otherwise normal.
�� � � � � � � � � � � - One 4 mm polyp in the descending colon, removed with
�� � � � � � � � � � � a jumbo cold forceps. Resected and retrieved.
�� � � � � � � � � � � - One 8 mm polyp in the ascending colon, removed with
�� � � � � � � � � � � a hot snare. Resected and retrieved.
Bleeding and anemia persisted worsened
CTA abd pelvis appreciated no active bleeding
flex sig performed 08/29 anal fissure and hemorrhoids noted
CRS eval appreciated concern anal fissure possibly necrotic hemorrhoid npo after midnight for Rectal examination under anesthesia, cardiac and pulm risk stratifications appreciated
Patient planned for EGD Friday 09/01 and rectal exam under anesthesia with GI and CRS
Normocytic Anemia
Anemia of Chronic Disease
Patient reports remote history adverse rxn blood transfusion hives all over
Monoclonal B cell lymphocytosis
-Iron Studies appreciated AOCD with Iron level wnl
-Vit B12 non-deficient
-Hematology Eval Appreciated
Hypokalemia resolved at this time
-monitor and replete as necessary
Chronic dean catheter, requires Flomax
Recent Urethral Bleeding from a Urinary Catheter
Uretheral Prolapse
Bladder Spasms
Reported urinary clots
-Urology consult appreciated, cont outpt follow up with her urologist at [facility]
-Suspected atrophic vaginitis, Estrace cream started, vaginal bleeding since resolved, outpt obgyn follow up
Severe COPD
Prior history of severe persistent asthma
Chronic Hypoxic Respiratory Failure
Acute on chronic SOB due to recent episodes of strep PNA followed by COVID with deconditioning and CHF
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
Left Lower Lobe PNA , suspected RODRIGUEZ coinfection likely present on admission
-Recent admissions for Strep pneumonia and COVID
-Patient alternates 6 weeks coarse of doxycycline and Ceftin - Currently on doxycycline
-Continue prednisone as prior to admission, currently tapering down 10mg every 5 days to baseline 5mg
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
-tapered from 30 mg to 20 mg starting 08/24 converted to IV decadron as per pulm 08/29 due to significant wheezing
-Continue Daliresp
-Continue fluticasone and salmeterol
-Continue levalbuterol prn
-Pulm eval appreciated
-Bronchoscopy performed on 08/22/23: follow bronchoalveolar lavage and cultures results acid fast bacilli positive pending speciation, PCR for TB however neg
-Infectious Disease consulted appreciated, Cefepime converted to cefdinir, no need for isolation/quarantine at this time. Cefdinir to complete 08/29
Paroxysmal Atrial Fibrillation s/p Ablation
-Patient is not on anticoagulation as outpatient
-Continue diltiazem discontinued as above
Sacrum Healing Stage 3 pressure injury, POA
-Continue wound care
Anxiety/Depression
Continue Duloxetine and alprazolam
Hypothyroidism
-Continue levothyroxine
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
-Continue gabapentin and duloxetine
-Gabapentin at max dose 1800 mg at 3 divided doses for her Cr clearance, transition to pregabalin offered patient however declines at this time
Arthritis
-home celecoxib resumed 08/25, discontinued 08/29 d/t worsening anemia persistent rectal bleed,
-celecoxib subsequently substituted with tramadol prn ordered, appears to be tolerating well at this time
Environment/Seasonal Allergies
-Continue fexofenadine and montelukast
History of Steroid-Induced Myopathy
PT/OT appreciated Rehab vs Home PT
DVT proph: (Previously Lovenox discontinued due to Bleeding as above) TERRI stockings, SCD ordered
GI ppx: protonix
Code Status: DNR/DNI
I spent a total of 55 minutes with the patient or on the floor. More than 50% of this time involved counseling and coordination of care.
Anticipated Discharge: > 48 hours
Subjective/Interval History
-
Date of Service: August 30, 2023
no acute distress appears comfortable at this time. Noted dark bowel movement this morning. Continues to report weeping swollen lower ext's in morning.
Objective Data
-
Labs:
Laboratory Results
08/30/23
06:00
WBC Pending
Hgb Pending
Hct Pending
Plt Count Pending
Sodium Pending
Potassium Pending
Chloride Pending
Carbon Dioxide Pending
BUN Pending
Creatinine Pending
Glucose Pending
Calcium Pending
Vital Signs:
Vital Signs
Temp Pulse Resp BP Pulse Ox
97.8 F 88 20 115/69 94
08/30/23 00:03 08/30/23 00:03 08/30/23 00:03 08/30/23 00:03 08/30/23 00:03
I&O
08/29/23 08/30/23 08/31/23
06:59 06:59 06:59
Intake Total 1320 / 1320
Output Total 600 / 600
Balance 720 / 720
[2023-08-30 08:13] VITALS: BP 110/67
[2023-08-30] MEDS: XOPENEX 0.63 MG INHALANT SOLUTION 0.630000000000000004 MG INH ×3 (08:16→23:56)
[2023-08-30] MEDS: NON-FORMULARY ITEM 2 INH INH ×2 (08:19→20:40)
[2023-08-30] MEDS: NON-FORMULARY ITEM 1 UNIT INH ×2 (08:19→20:41)
[2023-08-30 08:38] LABS: Hematocrit 25.4 % (37.0-47.0); Hemoglobin 8.4 g/dL (12.0-16.0); Mean Corp Hgb Conc. 33.1 g/dL (33.0-37.0); Mean Corpuscular Hgb 32.7 pg (27.0-31.0); Mean Corpuscular Volume 98.8 fL (81.0-99.0); Mean Platelet Volume 9.3 fL (7.4-10.4); Platelet Count 263 10^3/uL (130-400); Red Blood Cell Count 2.57 10^6/uL (4.20-5.40); Red Cell Dist. Width 15.9 % (11.5-14.5); White Blood Cell Count 12.3 10^3/uL (4.8-10.8)
[2023-08-30] MEDS: NON-FORMULARY ITEM 1 SPRAY NASAL (08:45)
[2023-08-30] MEDS: NON-FORMULARY ITEM 2 SPRAY NASAL ×2 (08:45→22:05)
[2023-08-30] MEDS: HYDROCORTISONE 2.5% CREAM 1 APPLIC TOPICAL (08:46)
[2023-08-30 09:16] LABS: Blood Urea Nitrogen 13 mg/dl (7-17); Calcium 8.8 mg/dl (8.4-10.2); Carbon Dioxide 33 mmol/L (22-30); Chloride 101 mmol/L (98-107); Estimated Creatinine Clearance 74 ml/min; Glucose 132 mg/dl (70-99); Magnesium 2.5 mg/dl (1.6-2.3); Potassium 4.7 mmol/L (3.5-5.1); Sodium 137 mmol/L (135-145); eGFR > 60.00
--- NOTE | 2023-08-30 09:49 | W.PN.CRS1 ---
Addendum entered and electronically signed by Benny Vance MD 08/30/23 13:43:
I saw and examined the patient.
The PA's note was reviewed and I agree with the note.
Comment:
Seen earlier with SCRUFF WORKER.
No new complaints. Had dark BM earlier.
Vitals reasonable. Hg 8.4.
Abdomen soft.
For OR tomorrow for anal EUA. May need to coordinate with GI as Dr. Huitron plans on EGD Friday too.
Original Note:
Today's Communication / Plan
-
Diet as per GI
Tentative OR friday for anal exam under anesthesia
Assessment/Plan
-
72-year-old with PMH of severe asthma (on biologic therapy), recent Strep pneumo pna on 07/07/23, paroxysmal A-fib, hypothyroidism, chronic LLL consolidation (first dx in 11/2022)� who initially presented with hyponatremia on 08/16, worsening asthma/SOB
on NC, echo on 08/20 with EF 60%, s/p bronch on 08/22 with BAL (+acid fast). She had developed GI bleeding during the hospital course on 08/20 with associated drift in Hb. GI performed a colonoscopy on 08/27, which showed non-bleeding hemorrhoids,
diverticula, and 2 polyps. CRS is consulted for her internal hemorrhoids.
CTA 08/29/23 without extravasation of dye. F/U sigmoidoscopy on 08/29/23 demonstrated possible fissure but atypical in appearance. Now notes her stools have been quite dark with very minimal BRB.
H/H stable
AFVSS
- GI following, may need EGD
�Ok for diet as per GI for toay
- NPO after MN for tentative OR friday for anal exam under anesthesia. Appreciate cards/pulm eval for anesthesia.
-Cont trending Hb, transfuse PRN; hold all AC
-Continue bowel regimen, Anusol
-Remainder of care per primary
Subjective Data
Subjective Data
Date of Service: August 30, 2023
Patient seen and examined at bedside with Dr. Vance. Her daughter Jerrica was on speaker phone and questions addressed. OOB to chair. Notes that she passed a soft but very dark bm today with some brb tinge. Denies n/v.
Objective Data
-
Vital Signs
Temp Pulse Resp BP Pulse Ox
97.6 F 86 16 110/67 97
08/30/23 08:13 08/30/23 08:21 08/30/23 08:21 08/30/23 08:13 08/30/23 08:21
Intake & Output
08/29/23 08/30/23 08/31/23
06:59 06:59 06:59
Intake Total 1320 / 1320
Output Total 600 / 600
Balance 720 / 720
Intake:
Oral fluids 1320 / 1320
Output:
Urine, Voided 600 / 600
Other:
Number of approximated LARGE 3
amounts of urine
Lab Results
08/30/23 07:43
08/30/23 07:43
Physical Exam
-
General: No Acute Distress
Abdomen: Soft, Non Distended and Non Tender
[2023-08-30] MEDS: FLOMAX 0.800000000000000044 MG PO (10:13)
[2023-08-30] MEDS: SYNTHROID 125 MCG PO (10:16)
[2023-08-30] MEDS: NEURONTIN 600 MG PO ×2 (10:17→15:34)
[2023-08-30] MEDS: MIRALAX 17 GRAMS PO (10:18)
[2023-08-30] MEDS: METAMUCIL, KONSYL PO (10:19)
[2023-08-30] MEDS: Pyridium 100 MG PO ×3 (10:19→22:04)
[2023-08-30] MEDS: KCL 20 MEQ PO (10:20)
[2023-08-30] MEDS: VITAMIN B-12 500 MCG PO (10:20)
[2023-08-30] MEDS: CYMBALTA DELAYED RELEASE 30 MG PO (10:20)
[2023-08-30] MEDS: OSCAL 500 + D 500 MG PO ×2 (10:21→22:05)
[2023-08-30] MEDS: VITAMIN B1 100 MG PO (10:21)
[2023-08-30] MEDS: PROTONIX 40 MG PO (10:21)
[2023-08-30] MEDS: ProAmatine 10 MG PO ×2 (10:21→12:45)
[2023-08-30] MEDS: NON-FORMULARY ITEM 1 UNIT PO (10:22)
[2023-08-30] MEDS: LASIX 40 MG PO (10:32)
--- NOTE | 2023-08-30 11:22 | W.PN.ONC2 ---
Today's Communication / Plan
-
- CBC daily. no need for transfusions today.
- GIB management per GI, surgery.
Impression
Impression
Symptomatic Hypovolemic Hyponatremia related to over-diuresis.
Weakness Below Baseline
Left Lower Lobe Consolidation on CT Imaging
Left Lower Lobe Atelectasis
Small bibasilar pleural effusions
Small to moderate amount of pericardial effusion
Orthostatic Hypotension
Bright red blood through vagina and rectal areas
Bright Red Blood Per Rectum on 08/21/23
Normocytic Anemia
Paroxysmal Atrial Fibrillation s/p Ablation
Monoclonal B call lymphocytosis
Steroid-Induced Myopathy
Plan
Plan
-Normocytic anemia
- retic count elevated at 3.5% in setting of GIB, no lab evidence to suggest hemolysis.
- Normal platelet count
- Hb with slow downtrend however mild improvement today up to 8.4 g/dl. continue to monitor.
- H/o one blood transfusion intolerant, developed hives
- hx of CLL-MBL. Flow cyto showed 23% of leukocytes with CLL phenotype.
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 Suspected to be related to underlying lymphoproliferative disorder. Intolerant to IVIg transfusions in the past. No signs of active infection at this time. low threshold for abx initiation if new fevers
or infectious symptoms.
- If HB <7 then premedication with tylenol, benedryl prior to blood transfusion
Subjective/Objective
Chief Complaint
rectal bleeding, symptomatic anemia
Subjective
pt states she continues to have rectal bleeding and felt BM this am was darker than prior. Her hgb has actually improved up to 8.4 g/dl however she states this is due to dehydration as she was NPO over night. Denies fevers, chills.
Vital Signs:
Vital Signs
Temp Pulse Resp BP Pulse Ox
97.6 F 86 16 110/67 95
08/30/23 08:13 08/30/23 08:21 08/30/23 08:21 08/30/23 08:13 08/30/23 08:30
Lab Results:
Laboratory Data
WBC 12.3 10^3/uL (4.8-10.8) H 08/30/23 07:43
Hgb 8.4 g/dL (12.0-16.0) L 08/30/23 07:43
Plt Count 263 10^3/uL (130-400) 08/30/23 07:43
PT 12.6 Sec (11.4-14.6) 08/19/23 13:02
INR 0.96 08/19/23 13:02
APTT 22.9 Sec (23.4-35.0) L 08/19/23 13:02
eGFR > 60.00 08/30/23 07:43
Physical Exam
HEENT: No Jaundice
Cardiology: Normal Sinus Rhythm
Pulmonary: Rales
GI: Soft
Extremities: Edema (1-2+, NEO wrapped)
Neuro: Non Focal
Review of Systems
Review of Systems
Constitutional: Reports Fatigue; Denies Fever
Gastrointestinal: Reports Other (dark stools, BRBPR); Denies Nausea/Vomiting or Diarrhea
Neurological: Denies Headache
--- NOTE | 2023-08-30 11:39 | W.PN.GI.CBS2 ---
Today's Communication / Plan
-
- NPO friday night for EGD in am
Assessment / Plan
-
72 yo F pmh as below here with recurrent PNA s/p bronch.� GI consult for rectal bleeding.� She previously had constipation which has resolved with bowel regimen.� Patient never had cscope.
s/p rectal 08/[address] Allison with , large external hemorrhoids she does have some pinpoint pain so could also have an anal fissure. Recurrent rectal bleeding with drop in Hgb and negative CTA. Discussed with patient and daughter. CRS has
evaluated patient as well.
08/27/23 Colonoscopy (Do)
�- Preparation of the colon was fair.
�� � � � � � � � � � � - Non-bleeding internal and external hemorrhoids.
�� � � � � � � � � � � - Diverticulosis in the entire examined colon.
�� � � � � � � � � � � - The examination was otherwise normal.
�� � � � � � � � � � � - One 4 mm polyp in the descending colon, removed with
�� � � � � � � � � � � a jumbo cold forceps. Resected and retrieved.
�� � � � � � � � � � � - One 8 mm polyp in the ascending colon, removed with
�� � � � � � � � � � � a hot snare. Resected and retrieved.
Impression:
-rectal bleeding
-rectal pain with concern for fissure
-ortho stasis
-LL PNA
-hx PAF
-hypothyroidism
-gait dysfunction
-hx steroid induced myopathy
08/29/23 - flex sig with Walp:
Medium sized anal fissure found on perianal exam. - pics taken and shared with CRS, Dr. Pian
�� � � � � � � � � � � - Hemorrhoids found on perianal exam.
�� � � � � � � � � � � - The rectum and sigmoid colon are normal with brown
�� � � � � � � � � � � stool in the rectum and sigmoid.
�� � � � � � � � � � � - No specimens collected.
08/30/23: dark stool - different from her normal BRB
-- planning EGD on Friday
-- discussing with CRS - attempting to coordinate anesthesia
- discussed wtih patient and Jerrica (Daughter) on speakerphone
Appt: 09/01 at 8am with Trinh PERRY currently made will need to decide if need to cancel appt if proceeding IP for testing - I let the office know to cancel the appt
Total Time Spent with Patient (in minutes): 35
Subjective
Subjective
Date of Service: August 30, 2023
had a dark stool this morning which is different. BUN still normal.
no transfusion given yesterday
Objective
Data Reviewed
Laboratory Data:
Laboratory Results
08/30/23 07:43
08/30/23 07:43
Laboratory Results
PT 12.6 Sec (11.4-14.6) 08/19/23 13:02
INR 0.96 08/19/23 13:02
APTT 22.9 Sec (23.4-35.0) L 08/19/23 13:02
Phosphorus 4.0 mg/dl (2.5-4.5) 08/30/23 07:43
Magnesium 2.5 mg/dl (1.6-2.3) H 08/30/23 07:43
Total Bilirubin 0.7 mg/dl (0.2-1.3) 08/29/23 07:01
AST 17 U/L (14-36) 08/29/23 07:01
ALT 18 U/L (0-35) 08/29/23 07:01
Alkaline Phosphatase 33 U/L (38-126) L 08/29/23 07:01
Lipase 318 U/L (23-300) H 08/16/23 19:17
Vital Signs and I&O:
Vital Signs
Temp Pulse Resp BP Pulse Ox
97.6 F 86 16 110/67 95
08/30/23 08:13 08/30/23 08:21 08/30/23 08:21 08/30/23 08:13 08/30/23 08:30
I&O
08/29/23 08/30/23 08/31/23
06:59 06:59 06:59
Intake Total 1320 / 1320
Output Total 600 / 600
Balance 720 / 720
Physical Exam
Physical Exam
HEENT: Anicteric
Pulmonary: Rhonchi
GI: Soft, Non Distended and Non Tender
Rectal: Black (dark stool - formed)
Extremities: No Edema
Neuro: Non Focal
--- NOTE | 2023-08-30 11:43 | VATNOTE ---
Upon routine assessment, dried blood noted underneath IV dressing. Pt declined dressing change at this time.
[2023-08-30 12:39] VITALS: BP 104/66
--- NOTE | 2023-08-30 13:55 | W.PN.PUL3 ---
Today's Communication / Plan
-
Continue Flovent, Serevent.
Continue IV Decadron
High risk, prefer spinal anesthesia if needed for rectal exam
Assessment
-
Patient is a 72 year old F with PMH significant for PAF, severe persistent asthma, hypothyroidism admitted 08/16/23 for abnormal sodium (Na =122).� Patient was admitted here Jun for Strep pneumonia.� She was discharged to [facility]'s rehab
and then admitted to [facility] with COVID.� Patient states that she then began to develop increased edema/fluid retention in the legs.� She was started on a diuretic regimen consisting of BID Lasix and daily metolazone. In the past 12 hours, she notes
worsening cough/SOB.� Per daughter who provides history on the phone, this was a change that they witnessed since she's been admitted. They have requested pulmonary evaluation 08/19/23. Patient stabilized and pulmonary initially signed off 08/27/23
and pulmonary was consulted again . As surgery wants to do rectal exam under anesthesia and asking for perioperative risks. 08/29/23.
Symptomatic hypovolemic hyponatremia likely 2/2 over-diuresis -hyponatremia now resolved
Asthma-moderate persistent with acute exacerbation
GI bleed-felt to be secondary to rectal fissure and necrotic hemorrhoid
Acute Confusion/Encephalopathy related to above - confused resolved now
Generalized weakness
Chronic cough, nonproductive
Acute on chronic SOB -likely due to RODRIGUEZ
Urinary retention s/p Alicia
Severe persistent asthma requiring biologic therapy now with acute exacerbation
LLL consolidation - chronic since November 2022 (unknown if present prior to that as we do not have imaging before that time)
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
Adm Jul 2023 for Strep PNA with AE asthma
Adm November 2022: acute hypoxemic respiratory failure, CAP LLL infiltrate, markedly ^PCT, asthma exacerbation. Completed 5d cefepime
Severe asthma, on daliresp, fluticasone, montelukast, salmeterol
Follows up at [facility] and [facility]
Monoclonal B-cell lymphocytosis
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
AFib s/p ablation
Hypothyroidism
Hysterectomy
R hip replacement
Cataract surgery
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
Seasonal allergies
Intermittent epistaxis, historically L>>>R
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
Allergy to azithromycin
DNR
Plan
At this time, patient appears to be comfortable, mild cough, mild crackles at the base
Currently 97% on 3 L
Patient does not have prior history of oxygen use, however, while at rehabilitation, was receiving 3 L
Rest and exercise oximetry 08/25/23 revealed desaturations down to 92%.
She has prior history of severe persistent asthma, being managed by Dr Neely.
She was recently on a prednisone taper after Jul 2019 for admission.� She does feel better with oral steroid dosing.
Recent spirometry as outpatient demonstrating poor effort/cough throughout, but FEV1 1.63L 73%
Wheezing improved today, currently on IV steroids
Moving forward
Continue with steroids, no change pending surgery/EGD
Prefer spinal anesthesia, patient is considered high risk
Continue nebulizers-reviewed with [employer]
Singulair continues
Mucolytic's
Antitussives
Daliresp continues
Continue fluticasone/serevent bid, patient can take her own
Continue levalbuterol HFA/nebs prn
Suspect patient has acute on chronic SOB due to recent episodes of strep PNA followed by COVID with deconditioning and CHF
CXR 08/19/23 showing L basilar atelectasis but not significantly changed from prior, never had chest CT.
Repeat PFT showing decline but still within moderate range
6MWT pending: patient declined on 08-19
Other imaging reviewed, CT Chest obtained showing LLL consolidation, there is small pericardial effusion (trivial on TTE 08-20-23)
Patient is status post bronch with BAL on 08/22/23 -growing AFB, suspected to be RODRIGUEZ.� Follow-up sensitivities.� Follow-up fungus and bacterial culture. No lung biopsies.
Antibiotics per infectious disease
ECHO results in past reviewed--stable function
Patient's repeat ECHO on 08/20/2023 shows normal biventricular function.
Diuretics per primary team.
Given rectal bleeding. GI continues to follow.
Patient was cleared for colonoscopy, which patient tolerated well.
Patient is tolerated bronchoscopy as well as a colonoscopy
She is cleared for proposed operation, however, would prefer spinal anesthesia with light sedation
If intubation, mechanical ventilation and general anesthesia needed she carries a moderate risk for perioperative pulmonary complications including temporary mechanical ventilation-reviewed with patient as well as daughter who is a nurse at the
bedside-they understand the risks, however, would also prefer spinal anesthesia and sedation over general anesthesia
Patient reiterated that she was a DNR-I told her that if she needed temporary intubation it was a reversible process and we would be able to get her off the ventilator
DVT prophylaxis-mechanical
GI prophylaxis-pantoprazole.
Nutrition per GI.
Early mobilization
Patient should follow up with Dr Neely in 3-4 wks-consider Biologics if cannot be weaned off prednisone and repeatedly requiring prednisone burst
Will follow
Diagnostic Data
CXR 08/19/23- LLL atelectasis
CXR 07/10/23- IMPRESSION: There is consolidation in the left lower lobe consistent with improving pneumonia along with a left pleural effusion. There is probable atelectasis in the right lower lobe.
CXR 07-05-23: Progressed findings suggesting mild left lower lobe pneumonia; New moderate right lower lobe probable atelectasis; Mild cardiomegaly. Stable
CXR 07-03-23 c/w November 15 and . Baseline films with improved LLL infiltrate but persistently blurred L diaphragm. Current films without gross infiltrates but suspicious for positive spine sign at L base
CT Chest 08/20/23: Left base consolidation and/or atelectasis, small amount of right base atelectasis with shift of the mediastinum toward the left. No discrete mediastinal or hilar mass identified however repeat imaging with IV contrast after
treatment is recommended to exclude an occult process. Small bibasilar pleural effusions. Small to moderate amount of pericardial effusion.
Spirometry 08/20/22: FEV1 1.21L 54%, FVC 1.46L 49%, ratio 83. Post FEV1 1.27L 57% no BD response. (mixed pattern, moderately reduced, decreased from prior testing but remains in moderate category)
PFT:
Spirometry 05/23/2023: FEV1/FVC 82%, FEV1 1.63 L-73%, FVC 1.97 L, 66%.� No airflow obstruction.� Patient has difficulty with the maneuvers due to coughing.
Crow 12/17/22: unable.
6 MWT:
6MWT 12/17/22: At rest, O2 99% on room air, heart rate 82. With ambulation, O2 remained at 99 to 100% on room air, max heart rate 90. 5/10 on dyspnea scale. Only able to ambulate 150 feet
ECHO 07/08/23- �LV ejection fraction is 60-65%, by visual assessment. No regional wall motion�abnormalities are seen.�Normal right ventricular size and function.�No significant valvular disease.�No prior study available for comparison.
Subjective Data
-
Date of Service:
Date of Service: August 30, 2023
Chief Complaint: Pulmonary Follow Up and Dyspnea Follow Up
Subjective:
Patient seen and examined earlier this morning. Has mild cough, shortness of breath but feels she is at her baseline. Remains on oxygen therapy. Sitting in chair, appears to be in good spirits. Denies nausea, abdominal pain
Objective Data
Data Reviewed
Vital Signs / I&O / Oxygen:
Vital Signs
Temp Pulse Resp BP Pulse Ox
97.6 F 86 16 104/66 95
08/30/23 08:13 08/30/23 08:21 08/30/23 08:21 08/30/23 12:39 08/30/23 08:30
Intake and Output
02/23/24 02/24/24 02/25/24
06:59 06:59 06:59
Intake Total 1320 / 1320
Output Total 600 / 600
Balance 720 / 720
SaO2 95
Nasal Cannula flow liters per 3
minute
Physical Exam
General: Comfortable
HEENT: Normocephalic, Anicteric and Moist Mucous Membranes
Cardiovascular: S1-S2, Regular Rhythm, Murmur (n), Peripheral Edema (tr) and Other (Mild drainage, lower extremities)
Respiratory: Wheeze (Mild), Crackles (Few at left base), Rhonchi (negative), Non-Labored Respirations and Stridor (negative)
GI: Soft, Non Distended, Non Tender and Normal Bowel Sounds
Neurology: Awake, Alert and No Motor Deficits
Skin: Good Color, Cyanosis (n) and Jaundice (n)
Labs/Micro/Reports
Lab Data
08/30/23 07:43
08/30/23 07:43
Microbiology
08/22/23 13:56 Bronch Left Lower Lobe Fungus Mold Identification - Preliminary
08/22/23 09:56 Bronch Left Lower Lobe Fungal Culture - Preliminary
Yeast
[2023-08-30 15:00] VITALS: BP 107/69
[2023-08-30] MEDS: VITAMIN D3 (cholecalciferol) 25 MCG PO (15:34)
[2023-08-30] MEDS: ULTRAM 25 MG PO ×2 (15:37→23:50)
[2023-08-30] MEDS: ProAmatine PO (17:43)
[2023-08-30] MEDS: VITAMIN C 500 MG PO (17:43)
--- NOTE | 2023-08-30 20:40 | PTCARENOTE ---
Patient requesting all HS meds at 2200.
[2023-08-30] MEDS: HYDROCORTISONE 2.5% CREAM TOPICAL (21:13)
[2023-08-30] MEDS: DALIRESP 500 MCG PO (22:04)
[2023-08-30] MEDS: TYLENOL 650 MG PO (22:04)
[2023-08-30] MEDS: SINGULAIR 10 MG PO (22:04)
[2023-08-30] MEDS: ESTRACE 0.01% VAGINAL CREAM 1 APPLIC VAG (22:05)
[2023-08-30] MEDS: CYMBALTA DELAYED RELEASE 60 MG PO (22:05)
[2023-08-30 23:00] VITALS: BP 129/78
[2023-08-30] MEDS: XANAX 0.5 MG PO (23:50)
[2023-08-30] MEDS: TESSALON PERLES 100 MG PO (23:51)
[2023-08-31] MEDS: DECADRON 4 MG IV ×3 (02:19→17:48)
[2023-08-31] MEDS: FLUSH (NSS) 1 FLUSH IV (02:20)
[2023-08-31 05:17] VITALS: BMI 21.9
[2023-08-31] MEDS: SYNTHROID 125 MCG PO (06:39)
[2023-08-31] MEDS: NEURONTIN 600 MG PO ×3 (06:39→22:06)
[2023-08-31] MEDS: FLOMAX 0.800000000000000044 MG PO (06:45)
[2023-08-31] MEDS: METAMUCIL, KONSYL 1 PACKET PO (06:45)
[2023-08-31 07:00] VITALS: BP 137/86
[2023-08-31 07:09] LABS: Hematocrit 22.4 % (37.0-47.0); Hemoglobin 7.7 g/dL (12.0-16.0); Mean Corp Hgb Conc. 34.4 g/dL (33.0-37.0); Mean Corpuscular Hgb 32.4 pg (27.0-31.0); Mean Corpuscular Volume 94.1 fL (81.0-99.0); Platelet Count 255 10^3/uL (130-400); Red Blood Cell Count 2.38 10^6/uL (4.20-5.40); Red Cell Dist. Width 15.9 % (11.5-14.5); White Blood Cell Count 13.1 10^3/uL (4.8-10.8)
--- NOTE | 2023-08-31 07:20 | W.PN.HOSP.TC ---
Today's Communication/Plan
-
monitor H&H
transfuse goal Hgb>7
If transfusing, patient will need pretreatment Tylenol Benadryl d/t hx rxn, should be washed red cells d/t Immunoglobulin deficiency
Tentative plan for EGD rectal exam under anesthesia Friday with GI and CRS
cont steroids as per Pulm
npo after midnight for procedures as above
Assessment / Plan
Assessment / Plan
Physical Exam
General: Not in acute distress -
HEENT: Normocephalic, Atraumatic
Respiratory: wheezing
Cardiac: Regular Rhythm and S1/S2
GI: Soft, Nontender and Nondistended. Positive bowel sounds.
Musculoskeletal: No Clubbing, No Cyanosis and No Edema

CT Head without IV contrast appreciated No acute intracranial abnormality
CT Chest W/o Iv Contrast appreciated Left base consolidation and/or atelectasis, small amount of right base atelectasis with shift of the mediastinum toward the left. Limited exam without IV contrast. No discrete mediastinal or hilar mass
identified however repeat imaging with IV contrast after treatment was recommended to exclude an occult process. Small bibasilar pleural effusions. Small to moderate amount of pericardial effusion
ECHO appreciated
Normal biventricular size and systolic function without regional wall motion
abnormality.
No significant valvular disease.
No prior study available for comparison
Assessment/Plan
72F complicated hx including but not limited to pAfib COPD Asthma Hypothyroidism Monoclonal B-cell Lymphocytosis Hypogammaglobulinemia intolerant to IgG infusion Arthritis p/w weakness confusion encephalopathy COPD exacerbation PNA Hyponatremia
Acute Kidney Injury persistent orthostatic hypotension. Since improved, hospitalization prolonged due to progressive anemia unclear source. Pending EGD rectal exam under anesthesia.
Symptomatic Hypovolemic Hyponatremia related to over-diuresis. Feels weak, unable to walk, feels confused
- Metolazone discontinued
- Lasix reduced to 40 mg daily, continued for Lower ext swelling weeping likely chronic lymphedema (outpatient lymphedema clinic recommended)
- Celebrex initially held, resumed as below, placed on hold with worsening anemia and persistent rectal bleeding last dose 08/29 in AM
- IVF completed
- Na improved 130s
Acute Confusion/Encephalopathy - Resolved
Generalized Weakness Below Baseline
Left Lower Lobe Consolidation on CT Imaging
Left Lower Lobe Atelectasis
Suspected COPD Exacerbation
Cough, Rhonchi
-UA (urine culture with no growth), Influenza (negative), COVID (negative), Ammonia (low), Coagulation Studies (okay), Serum osmoles (okay), Blood cultures (no growth to date), TSH (low but T4 wnl - outpatient follow up), Vitamin B12 (non-deficient)
-Cortisol (in the morning) was low at 1.3 -- likely suppression d/t steroids
-CT Head unremarkable
-Thiamine 100 mg PO daily
Small bibasilar pleural effusions
Small to moderate amount of pericardial effusion
-Cardiology consult appreciated
-Echocardiogram ordered, results are above
-On echo, pericardial effusion is trivial
Orthostatic Hypotension
Dizziness/Lightheadedness on Standing
-patient not tolerating abd binder, has been using knee high TEDs only
-cardio consult appreciated, midodrine increased to 10 mg TID, cardizem and lasix discontinued (lasix later resumed reduced dose for lymphedema as above), LE compression NEO bandages applied
Bright red blood through vagina and rectal areas
Bright Red Blood Per Rectum on 08/21/23
-Monitor Hgb transfuse goal Hgb>7, pretreat with tylenol and benadryl given hx transfusion rxn hives, use washed red cells given hx hypogammaglobulinemia
-outpatient OBGYN follow up
GI eval appreciated Colonoscopy performed 08/27
� � � � � � � � � � � - Non-bleeding internal and external hemorrhoids.
�� � � � � � � � � � � - Diverticulosis in the entire examined colon.
�� � � � � � � � � � � - The examination was otherwise normal.
�� � � � � � � � � � � - One 4 mm polyp in the descending colon, removed with
�� � � � � � � � � � � a jumbo cold forceps. Resected and retrieved.
�� � � � � � � � � � � - One 8 mm polyp in the ascending colon, removed with
�� � � � � � � � � � � a hot snare. Resected and retrieved.
Bleeding and anemia persisted worsened
CTA abd pelvis appreciated no active bleeding
flex sig performed 08/29 anal fissure and hemorrhoids noted
CRS eval appreciated concern anal fissure possibly necrotic hemorrhoid npo after midnight for Rectal examination under anesthesia, cardiac and pulm risk stratifications appreciated
Patient planned for EGD Friday 09/01 and rectal exam under anesthesia with GI and CRS
Normocytic Anemia
Anemia of Chronic Disease
Patient reports remote history adverse rxn blood transfusion hives all over
Monoclonal B cell lymphocytosis
-Iron Studies appreciated AOCD with Iron level wnl
-Vit B12 non-deficient
-Hematology Eval Appreciated
Hx of hypogammaglobulinemia Suspected to be related to underlying lymphoproliferative disorder.
Intolerant to IVIg transfusions in the past.
Low threshold for abx initiation if new fevers or infectious symptoms
confirmed IgA IgG IgM deficient 08/26
Hypokalemia resolved at this time
-monitor and replete as necessary
Chronic dean catheter, requires Flomax
Recent Urethral Bleeding from a Urinary Catheter
Uretheral Prolapse
Bladder Spasms
Reported urinary clots
-Urology consult appreciated, cont outpt follow up with her urologist at [facility]
-Suspected atrophic vaginitis, Estrace cream started, vaginal bleeding since resolved, outpt obgyn follow up
Severe COPD
Prior history of severe persistent asthma
Chronic Hypoxic Respiratory Failure
Acute on chronic SOB due to recent episodes of strep PNA followed by COVID with deconditioning and CHF
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
Left Lower Lobe PNA , suspected RODRIGUEZ coinfection likely present on admission
-Recent admissions for Strep pneumonia and COVID
-Patient alternates 6 weeks coarse of doxycycline and Ceftin - Currently on doxycycline
-Continue prednisone as prior to admission, currently tapering down 10mg every 5 days to baseline 5mg
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
-tapered from 30 mg to 20 mg starting 08/24 converted to IV decadron as per pulm 08/29 due to significant wheezing
-Continue Daliresp
-Continue fluticasone and salmeterol
-Continue levalbuterol prn
-Pulm eval appreciated
-Bronchoscopy performed on 08/22/23: follow bronchoalveolar lavage and cultures results acid fast bacilli positive pending speciation, PCR for TB however neg
-Infectious Disease consulted appreciated, Cefepime converted to cefdinir, no need for isolation/quarantine at this time. Cefdinir completed 08/29
Paroxysmal Atrial Fibrillation s/p Ablation
-Patient is not on anticoagulation as outpatient
-Continue diltiazem discontinued as above
Sacrum Healing Stage 3 pressure injury, POA
-Continue wound care
Anxiety/Depression
Continue Duloxetine and alprazolam
Hypothyroidism
-Continue levothyroxine
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
-Continue gabapentin and duloxetine
-Gabapentin at max dose 1800 mg at 3 divided doses for her Cr clearance, transition to pregabalin offered patient however declines at this time
Arthritis
-home celecoxib resumed 08/25, discontinued 08/29 d/t worsening anemia persistent rectal bleed,
-celecoxib subsequently substituted with tramadol prn ordered, appears to be tolerating well at this time however symptoms ('locking joints') remain uncontrolled
-consider Rheumatology eval Friday
Environment/Seasonal Allergies
-Continue fexofenadine and montelukast
History of Steroid-Induced Myopathy
PT/OT appreciated HH
DVT proph: (Previously Lovenox discontinued due to Bleeding as above) TERRI stockings, SCDs
GI ppx: protonix
Code Status: DNR/DNI
I spent a total of 55 minutes with the patient or on the floor. More than 50% of this time involved counseling and coordination of care.
Anticipated Discharge: 24 - 48 hours
Subjective/Interval History
-
Date of Service: August 31, 2023
Objective Data
-
Labs:
Laboratory Results
08/31/23
06:22
WBC 13.1 H
Hgb 7.7 L
Hct 22.4 L
Plt Count 255
Sodium Pending
Potassium Pending
Chloride Pending
Carbon Dioxide Pending
BUN Pending
Creatinine Pending
Glucose Pending
Calcium Pending
Vital Signs:
Vital Signs
Temp Pulse Resp BP Pulse Ox
98.4 F 88 16 129/78 96
08/30/23 23:00 08/30/23 23:58 08/30/23 23:58 08/30/23 23:00 08/30/23 23:00
I&O
08/30/23 08/31/23 09/01/23
06:59 06:59 06:59
Intake Total 1739 / 1739
Output Total 2049
Balance -310 / -310
[2023-08-31 07:43] LABS: Blood Urea Nitrogen 22 mg/dl (7-17); Calcium 8.9 mg/dl (8.4-10.2); Carbon Dioxide 30 mmol/L (22-30); Chloride 104 mmol/L (98-107); Estimated Creatinine Clearance 74 ml/min; Glucose 136 mg/dl (70-99); Magnesium 2.8 mg/dl (1.6-2.3); Phosphorus 3.2 mg/dl (2.5-4.5); Potassium 4.1 mmol/L (3.5-5.1); Sodium 136 mmol/L (135-145); eGFR > 60.00
[2023-08-31] MEDS: Pyridium 100 MG PO ×3 (08:28→22:03)
[2023-08-31] MEDS: CYMBALTA DELAYED RELEASE 30 MG PO (08:28)
[2023-08-31] MEDS: OSCAL 500 + D 500 MG PO ×2 (08:28→22:03)
[2023-08-31] MEDS: KCL 20 MEQ PO (08:28)
[2023-08-31] MEDS: PROTONIX 40 MG PO (08:29)
[2023-08-31] MEDS: VITAMIN B1 100 MG PO (08:29)
[2023-08-31] MEDS: VITAMIN B-12 500 MCG PO (08:29)
[2023-08-31] MEDS: NON-FORMULARY ITEM 1 SPRAY NASAL (08:30)
[2023-08-31] MEDS: LASIX 40 MG PO (08:30)
[2023-08-31] MEDS: NON-FORMULARY ITEM 1 UNIT PO (08:31)
[2023-08-31] MEDS: MIRALAX PO (08:31)
[2023-08-31] MEDS: NON-FORMULARY ITEM 2 SPRAY NASAL ×2 (08:31→22:08)
[2023-08-31] MEDS: HYDROCORTISONE 2.5% CREAM 1 APPLIC TOPICAL (08:32)
[2023-08-31] MEDS: ProAmatine PO ×3 (08:33→18:30)
[2023-08-31] MEDS: ULTRAM 25 MG PO ×3 (08:39→23:35)
[2023-08-31] MEDS: NON-FORMULARY ITEM 2 INH INH ×2 (08:42→21:09)
[2023-08-31] MEDS: NON-FORMULARY ITEM 1 UNIT INH ×2 (08:43→21:09)
[2023-08-31] MEDS: XOPENEX 0.63 MG INHALANT SOLUTION 0.630000000000000004 MG INH ×2 (08:44→21:09)
[2023-08-31 11:50] VITALS: BP 151/87; PULSE 64; O2SAT 98
[2023-08-31 12:25] VITALS: BP 151/87; PULSE 64; O2SAT 98
[2023-08-31 12:49] LABS: Hematocrit 24.5 % (37.0-47.0); Hemoglobin 8.2 g/dL (12.0-16.0)
--- NOTE | 2023-08-31 13:23 | W.PN.CRS1 ---
Addendum entered and electronically signed by Baljinder Pina MD 08/31/23 18:33:
I saw and examined the patient.
The REMOTE SENSING SURVEYOR's note was reviewed and I agree with the note.
Comment:
72-year-old with PMH of severe asthma (on biologic therapy), recent Strep pneumo pna on 07/07/23, paroxysmal A-fib, hypothyroidism, chronic LLL consolidation (first dx in 11/2022)� who initially presented with hyponatremia on 08/16, worsening asthma/SOB
on NC, echo on 08/20 with EF 60%, s/p bronch on 08/22 with BAL (+acid fast). She had developed GI bleeding during the hospital course on 08/20 with associated drift in Hb (08/18 Hb 11.3, 08/20 Hb 11.7, 08/24 Hb 9.2, 08/28 Hb 8.2, no transfusions yet). GI
performed a colonoscopy on 08/27, which showed non-bleeding hemorrhoids, diverticula, and 2 polyps. on 08/29, CTA negative for active intraluminal extrav, GI performed awake flex sig, concerning for anal fissure vs internal hemorrhoid, no blood in
rectum/sigmoid; 08/31, pt stated her BMs became darker, no longer bright red
�In combination with initial symptoms of BRBPR with flex sig findings of anal fissure versus possible ischemic internal hemorrhoid, recommend EUA for definitive evaluation of the anal canal and possible fissurectomy versus hemorrhoidectomy; will
need to perform procedure in prone position
�Per cards, no further cardiac work-up, cleared for anesthesia
�Per pulm, moderate risk for pulm complications with general anesthesia; cleared for surgery, but recommend spinal if possible
-Recommend Anusol cream twice daily, Calmol 4 suppositories 4 times daily, and fiber supplementation to mitigate anorectal bleeding
�Appreciate GI; due to change in symptoms, plan for EGD tomorrow morning
� N.p.o. at midnight
-Cont trending Hb, transfuse PRN; hold all AC
-Remainder of care per primary
Original Note:
Today's Communication / Plan
-
NPO after MN for OR
Assessment/Plan
-
72-year-old with PMH of severe asthma (on biologic therapy), recent Strep pneumo pna on 07/07/23, paroxysmal A-fib, hypothyroidism, chronic LLL consolidation (first dx in 11/2022)� who initially presented with hyponatremia on 08/16, worsening asthma/SOB
on NC, echo on 08/20 with EF 60%, s/p bronch on 08/22 with BAL (+acid fast). She had developed GI bleeding during the hospital course on 08/20 with associated drift in Hb. GI performed a colonoscopy on 08/27, which showed non-bleeding hemorrhoids,
diverticula, and 2 polyps. CRS is consulted for her internal hemorrhoids.
CTA 08/29/23 without extravasation of dye. F/U sigmoidoscopy on 08/29/23 demonstrated possible fissure but atypical in appearance. Now notes her stools have been quite dark with very minimal BRB.
H/H stable
AFVSS
- GI following, discussed with Dr. Huitron to coordinate care. EGD is planned, timing TBD.
- NPO after MN for OR Friday for anal exam under anesthesia/possible hemorrhoidectomy.
-Appreciate cards/pulm eval for anesthesia risk stratification.
-Cont trending Hb, transfuse PRN; hold all AC
-Continue bowel regimen, Anusol
-Remainder of care per primary
Subjective Data
Subjective Data
Date of Service: August 31, 2023
Patient seen and examined at bedside with Dr. Pina. Questions addressed. Denies n/v. Passing dark BM's.
Objective Data
-
Vital Signs
Temp Pulse Resp BP Pulse Ox
98.1 F 86 16 131/78 94
08/31/23 07:00 08/31/23 08:45 08/31/23 08:45 08/31/23 08:33 08/31/23 08:45
Intake & Output
08/30/23 08/31/23 09/01/23
06:59 06:59 06:59
Intake Total 1739
Output Total 2049
Balance -310 / -310
Intake:
Oral fluids 1739
Output:
Urine, Voided 2049
Lab Results
08/31/23 12:06
08/31/23 06:22
Physical Exam
-
General: No Acute Distress
Abdomen: Soft, Non Distended and Non Tender
--- NOTE | 2023-08-31 13:50 | W.PN.PUL3 ---
Today's Communication / Plan
-
No change in pulmonary regimen
For OR tomorrow, colorectal
Prefer spinal anesthesia if possible
Reviewed autogenic breathing technique, diaphragmatic breathing, pursed lip breathing
Assessment
-
Patient is a 72 year old F with PMH significant for PAF, severe persistent asthma, hypothyroidism admitted 08/16/23 for abnormal sodium (Na =122).� Patient was admitted here Jun for Strep pneumonia.� She was discharged to [facility]'s rehab
and then admitted to [facility] with COVVANESSA.� Patient states that she then began to develop increased edema/fluid retention in the legs.� She was started on a diuretic regimen consisting of BID Lasix and daily metolazone. In the past 12 hours, she notes
worsening cough/SOB.� Per daughter who provides history on the phone, this was a change that they witnessed since she's been admitted. They have requested pulmonary evaluation 08/19/23. Patient stabilized and pulmonary initially signed off 08/27/23
and pulmonary was consulted again . As surgery wants to do rectal exam under anesthesia and asking for perioperative risks. 08/29/23.
Symptomatic hypovolemic hyponatremia likely 2/2 over-diuresis -hyponatremia now resolved
Asthma-moderate persistent with acute exacerbation
GI bleed-felt to be secondary to rectal fissure and necrotic hemorrhoid
Acute Confusion/Encephalopathy related to above - confused resolved now
Generalized weakness
Chronic cough, nonproductive
Acute on chronic SOB -likely due to RODRIGUEZ
Urinary retention s/p Alicia
Severe persistent asthma requiring biologic therapy now with acute exacerbation
LLL consolidation - chronic since November 2022 (unknown if present prior to that as we do not have imaging before that time)
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
Adm Jul 2023 for Strep PNA with AE asthma
Adm November 2022: acute hypoxemic respiratory failure, CAP LLL infiltrate, markedly ^PCT, asthma exacerbation. Completed 5d cefepime
Severe asthma, on daliresp, fluticasone, montelukast, salmeterol
Follows up at [facility] and [facility]
Monoclonal B-cell lymphocytosis
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
AFib s/p ablation
Hypothyroidism
Hysterectomy
R hip replacement
Cataract surgery
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
Seasonal allergies
Intermittent epistaxis, historically L>>>R
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
Allergy to azithromycin
DNR
Plan
At this time, patient appears to be comfortable, coughing during exam
Currently 94% on 3 L
Patient does not have prior history of oxygen use, however, while at rehabilitation, was receiving 3 L
Rest and exercise oximetry 08/25/23 revealed desaturations down to 92%.
She has prior history of severe persistent asthma, being managed by Dr Neely.
She was recently on a prednisone taper after Jul 2019 for admission.� She does feel better with oral steroid dosing.
Recent spirometry as outpatient demonstrating poor effort/cough throughout, but FEV1 1.63L 73%
Wheezing improved today, currently on IV steroids
Wheezing with cough spasms noted
Moving forward
Continue with steroids, no change pending surgery/EGD
N.p.o. after midnight 4 OR tomorrow
Prefer spinal anesthesia, patient is considered high risk
Continue nebulizers-reviewed with SURVEY RESEARCH PROFESSOR
Singulair continues
Mucolytic's
Antitussives
Daliresp continues
Continue fluticasone/serevent bid, patient can take her own
Continue levalbuterol HFA/nebs prn
Reviewed autogenic breathing technique, pursed lip technique, diaphragmatic breathing
Suspect patient has acute on chronic SOB due to recent episodes of strep PNA followed by COVID with deconditioning and CHF
CXR 08/19/23 showing L basilar atelectasis but not significantly changed from prior, never had chest CT.
Repeat PFT showing decline but still within moderate range
6MWT pending: patient declined on 08-19
Other imaging reviewed, CT Chest obtained showing LLL consolidation, there is small pericardial effusion (trivial on TTE 08-20-23)
Patient is status post bronch with BAL on 08/22/23 -growing AFB, suspected to be RODRIGUEZ.� Follow-up sensitivities.� Follow-up fungus and bacterial culture. No lung biopsies.
Antibiotics per infectious disease
ECHO results in past reviewed--stable function
Patient's repeat ECHO on 08/20/2023 shows normal biventricular function.
Diuretics per primary team.
Given rectal bleeding. GI continues to follow.
Patient was cleared for colonoscopy, which patient tolerated well.
Plan for OR 09/01
Patient is tolerated bronchoscopy as well as a colonoscopy
She is cleared for proposed operation, however, would prefer spinal anesthesia with light sedation
If intubation, mechanical ventilation and general anesthesia needed she carries a moderate risk for perioperative pulmonary complications including temporary mechanical ventilation-reviewed with patient as well as daughter who is a nurse at the
bedside-they understand the risks, however, would also prefer spinal anesthesia and sedation over general anesthesia
Patient reiterated that she was a DNR-I told her that if she needed temporary intubation it was a reversible process and we would be able to get her off the ventilator
DVT prophylaxis-mechanical
GI prophylaxis-pantoprazole.
Nutrition per GI.
Early mobilization
Patient should follow up with Dr Neely in 3-4 wks-consider Biologics if cannot be weaned off prednisone and repeatedly requiring prednisone burst
Will follow
Diagnostic Data
CXR 08/19/23- LLL atelectasis
CXR 07/10/23- IMPRESSION: There is consolidation in the left lower lobe consistent with improving pneumonia along with a left pleural effusion. There is probable atelectasis in the right lower lobe.
CXR 07-05-23: Progressed findings suggesting mild left lower lobe pneumonia; New moderate right lower lobe probable atelectasis; Mild cardiomegaly. Stable
CXR 07-03-23 c/w November 15 and . Baseline films with improved LLL infiltrate but persistently blurred L diaphragm. Current films without gross infiltrates but suspicious for positive spine sign at L base
CT Chest 08/20/23: Left base consolidation and/or atelectasis, small amount of right base atelectasis with shift of the mediastinum toward the left. No discrete mediastinal or hilar mass identified however repeat imaging with IV contrast after
treatment is recommended to exclude an occult process. Small bibasilar pleural effusions. Small to moderate amount of pericardial effusion.
Spirometry 08/20/22: FEV1 1.21L 54%, FVC 1.46L 49%, ratio 83. Post FEV1 1.27L 57% no BD response. (mixed pattern, moderately reduced, decreased from prior testing but remains in moderate category)
PFT:
Spirometry 05/23/2023: FEV1/FVC 82%, FEV1 1.63 L-73%, FVC 1.97 L, 66%.� No airflow obstruction.� Patient has difficulty with the maneuvers due to coughing.
[place] 12/17/22: unable.
6 MWT:
6MWT 12/17/22: At rest, O2 99% on room air, heart rate 82. With ambulation, O2 remained at 99 to 100% on room air, max heart rate 90. 5/10 on dyspnea scale. Only able to ambulate 150 feet
ECHO 07/08/23- �LV ejection fraction is 60-65%, by visual assessment. No regional wall motion�abnormalities are seen.�Normal right ventricular size and function.�No significant valvular disease.�No prior study available for comparison.
Subjective Data
-
Date of Service:
Date of Service: August 31, 2023
Chief Complaint: Pulmonary Follow Up and Dyspnea Follow Up
Subjective:
Patient examined earlier today. Sitting in chair. No changes in pulmonary symptoms. Still with cough, denies chest pain, nausea, abdominal pain
Objective Data
Data Reviewed
Vital Signs / I&O / Oxygen:
Vital Signs
Temp Pulse Resp BP Pulse Ox
98.1 F 86 16 131/78 94
08/31/23 07:00 08/31/23 08:45 08/31/23 08:45 08/31/23 08:33 08/31/23 08:45
Intake and Output
08/30/23 08/31/23 09/01/23
06:59 06:59 06:59
Intake Total 1739
Output Total 2049
Balance -310 / -310
SaO2 94
Nasal Cannula flow liters per 4
minute
Physical Exam
General: Comfortable and Other (Mild kyphoscoliosis)
HEENT: Normocephalic, Anicteric and Moist Mucous Membranes
Cardiovascular: S1-S2, Regular Rhythm, Murmur (n), Peripheral Edema (tr) and Other (Mild drainage, lower extremities)
Respiratory: Wheeze (Mild, worse with cough spasms), Crackles (Few at left base), Rhonchi (negative), Non-Labored Respirations and Stridor (negative)
GI: Soft, Non Distended, Non Tender and Normal Bowel Sounds
Neurology: Awake, Alert and No Motor Deficits
Skin: Good Color, Cyanosis (n) and Jaundice (n)
Labs/Micro/Reports
Lab Data
08/31/23 12:06
08/31/23 06:22
Microbiology
08/22/23 13:56 Bronch Left Lower Lobe Fungus Mold Identification - Preliminary
[2023-08-31 15:00] VITALS: BP 125/75
--- NOTE | 2023-08-31 15:28 | W.PN.GI.CBS2 ---
Today's Communication / Plan
-
- NPO after midnight for EGD
Assessment / Plan
-
72 yo F pmh as below here with recurrent PNA s/p bronch.� GI consult for rectal bleeding.� She previously had constipation which has resolved with bowel regimen.� Patient never had cscope.
s/p rectal 08/[address] Allison with , large external hemorrhoids she does have some pinpoint pain so could also have an anal fissure. Recurrent rectal bleeding with drop in Hgb and negative CTA. Discussed with patient and daughter. CRS has
evaluated patient as well.
08/27/23 Colonoscopy (Do)
�- Preparation of the colon was fair.
�� � � � � � � � � � � - Non-bleeding internal and external hemorrhoids.
�� � � � � � � � � � � - Diverticulosis in the entire examined colon.
�� � � � � � � � � � � - The examination was otherwise normal.
�� � � � � � � � � � � - One 4 mm polyp in the descending colon, removed with
�� � � � � � � � � � � a jumbo cold forceps. Resected and retrieved.
�� � � � � � � � � � � - One 8 mm polyp in the ascending colon, removed with
�� � � � � � � � � � � a hot snare. Resected and retrieved.
Impression:
-rectal bleeding
-rectal pain with concern for fissure
-ortho stasis
-LL PNA
-hx PAF
-hypothyroidism
-gait dysfunction
-hx steroid induced myopathy
08/29/23 - flex sig with Walp:
Medium sized anal fissure found on perianal exam. - pics taken and shared with CRS, Dr. Pina
�� � � � � � � � � � � - Hemorrhoids found on perianal exam.
�� � � � � � � � � � � - The rectum and sigmoid colon are normal with brown
�� � � � � � � � � � � stool in the rectum and sigmoid.
�� � � � � � � � � � � - No specimens collected.
08/30/23: dark stool - different from her normal BRB
-- planning EGD on Friday morning
-- discussing with CRS - attempting to coordinate anesthesia
- discussed wtih patient and Jerrica (Daughter) on speakerphone
08/31/23: hgb stable. will do EGD in the morning and Dr. Pina will follow in the afternoon with the EUA
discussed with surgery
Appt: 09/01 at 8am with Trinh PERRY currently made will need to decide if need to cancel appt if proceeding IP for testing - I let the office know to cancel the appt
Total Time Spent with Patient (in minutes): 25
Subjective
Subjective
Date of Service: August 31, 2023
patient states she had a dark formed stool again.
Objective
Data Reviewed
Laboratory Data:
Laboratory Results
08/31/23 12:06
08/31/23 06:22
Laboratory Results
PT 12.6 Sec (11.4-14.6) 08/19/23 13:02
INR 0.96 08/19/23 13:02
APTT 22.9 Sec (23.4-35.0) L 08/19/23 13:02
Phosphorus 3.2 mg/dl (2.5-4.5) 08/31/23 06:22
Magnesium 2.8 mg/dl (1.6-2.3) H 08/31/23 06:22
Total Bilirubin 0.7 mg/dl (0.2-1.3) 08/29/23 07:01
AST 17 U/L (14-36) 08/29/23 07:01
ALT 18 U/L (0-35) 08/29/23 07:01
Alkaline Phosphatase 33 U/L (38-126) L 08/29/23 07:01
Lipase 318 U/L (23-300) H 08/16/23 19:17
Vital Signs and I&O:
Vital Signs
Temp Pulse Resp BP Pulse Ox
98.1 F 82 16 142/82 94
08/31/23 07:00 08/31/23 14:09 08/31/23 08:45 08/31/23 14:09 08/31/23 08:45
I&O
08/30/23 08/31/23 09/01/23
06:59 06:59 06:59
Intake Total 1739
Output Total 2049
Balance -310 / -310
Physical Exam
Physical Exam
HEENT: Anicteric
Cardiology: Normal Sinus Rhythm
Pulmonary: Wheezes
GI: Soft, Non Distended and Non Tender
Extremities: No Edema
Neuro: Non Focal
[2023-08-31] MEDS: VITAMIN D3 (cholecalciferol) 25 MCG PO (16:18)
[2023-08-31] MEDS: VITAMIN C 500 MG PO (17:48)
--- NOTE | 2023-08-31 21:00 | VATNOTE ---
Called to check midline due to patient c/o pain and burning at site. Patient states she has had reactions to chlorahexadine in the past, and is concerned about use of CHG BioPatch. Dressing removed and area cleaned; 1cm skin tear noted at insertion
site. Gauze dressing applied and covered with sterile dressing. Patient reports area is sore, but pain is less and burning is now resolved.
[2023-08-31] MEDS: DALIRESP 500 MCG PO (22:03)
[2023-08-31] MEDS: CYMBALTA DELAYED RELEASE 60 MG PO (22:03)
[2023-08-31] MEDS: TYLENOL 650 MG PO (22:03)
[2023-08-31] MEDS: SINGULAIR 10 MG PO (22:03)
[2023-08-31] MEDS: HYDROCORTISONE 2.5% CREAM TOPICAL (22:04)
[2023-08-31] MEDS: ESTRACE 0.01% VAGINAL CREAM 1 APPLIC VAG (22:08)
[2023-08-31 23:00] VITALS: BP 108/73
[2023-08-31] MEDS: XANAX 0.5 MG PO (23:34)
[2023-08-31] MEDS: TESSALON PERLES 100 MG PO (23:34)
[2023-09-01] VITALS (20 sets, daily range): BP systolic 11–167; BP diastolic 72–94; BMI 21.7
[2023-09-01] MEDS: XOPENEX 0.63 MG INHALANT SOLUTION 0.630000000000000004 MG INH ×4 (01:37→20:15)
[2023-09-01] MEDS: DECADRON 4 MG IV ×3 (01:52→22:32)
[2023-09-01 05:16] LABS: Hematocrit 23.5 % (37.0-47.0); Hemoglobin 7.8 g/dL (12.0-16.0); Mean Corp Hgb Conc. 33.2 g/dL (33.0-37.0); Mean Corpuscular Hgb 32.5 pg (27.0-31.0); Mean Corpuscular Volume 97.9 fL (81.0-99.0); Mean Platelet Volume 9.2 fL (7.4-10.4); Platelet Count 240 10^3/uL (130-400); Red Cell Dist. Width 15.9 % (11.5-14.5); White Blood Cell Count 13.9 10^3/uL (4.8-10.8)
[2023-09-01 05:26] LABS: Blood Urea Nitrogen 17 mg/dl (7-17); Calcium 8.6 mg/dl (8.4-10.2); Carbon Dioxide 30 mmol/L (22-30); Chloride 104 mmol/L (98-107); Estimated Creatinine Clearance 74 ml/min; Glucose 129 mg/dl (70-99); Magnesium 2.4 mg/dl (1.6-2.3); Potassium 3.8 mmol/L (3.5-5.1); Sodium 133 mmol/L (135-145); eGFR > 60.00
[2023-09-01] MEDS: NEURONTIN 600 MG PO ×3 (06:28→22:38)
[2023-09-01] MEDS: SYNTHROID 112 MCG PO (06:28)
[2023-09-01] MEDS: TESSALON PERLES 100 MG PO ×2 (06:33→22:58)
[2023-09-01] MEDS: NON-FORMULARY ITEM 1 UNIT INH ×2 (07:43→20:16)
[2023-09-01] MEDS: NON-FORMULARY ITEM 2 INH INH ×2 (07:43→20:17)
[2023-09-01] MEDS: NON-FORMULARY ITEM 2 SPRAY NASAL ×2 (08:21→20:48)
[2023-09-01] MEDS: METAMUCIL, KONSYL PO (08:22)
[2023-09-01] MEDS: HYDROCORTISONE 2.5% CREAM TOPICAL ×2 (08:22→20:50)
[2023-09-01] MEDS: NON-FORMULARY ITEM 1 SPRAY NASAL (08:22)
--- NOTE | 2023-09-01 08:41 | W.PN.HOSP.TC ---
Today's Communication/Plan
-
EUA today
Irradiated and Leukoreduced blood transfusion -- along with pretreatment -- appreciate hematology recommendations and assistance with this
Assessment / Plan
Assessment / Plan
Physical Exam
General: Not in acute distress
HEENT: Normocephalic, Atraumatic
Respiratory: Scattered wheezes and some crackles
Cardiac: Regular Rhythm and S1/S2
GI: Soft, Nontender and Nondistended. Positive bowel sounds.
Musculoskeletal: No Cyanosis and No Edema

CT Head (as per radiologist's report) without IV contrast appreciated No acute intracranial abnormality
CT Chest W/o Iv Contrast (as per radiologist's report) appreciated Left base consolidation and/or atelectasis, small amount of right base atelectasis with shift of the mediastinum toward the left. Limited exam without IV contrast. No discrete
mediastinal or hilar mass identified however repeat imaging with IV contrast after treatment was recommended to exclude an occult process. Small bibasilar pleural effusions. Small to moderate amount of pericardial effusion
ECHO (as per inspector ball points's report) appreciated
Normal biventricular size and systolic function without regional wall motion
abnormality.
No significant valvular disease.
No prior study available for comparison
Assessment/Plan
72 y/o female with complicated history including, but not limited to pAfib COPD Asthma Hypothyroidism Monoclonal B-cell Lymphocytosis Hypogammaglobulinemia intolerant to IgG infusion Arthritis p/w weakness confusion encephalopathy COPD exacerbation
PNA Hyponatremia Acute Kidney Injury persistent orthostatic hypotension. Since improved, hospitalization prolonged due to progressive anemia unclear source. Pending EGD rectal exam under anesthesia.
Symptomatic Hypovolemic Hyponatremia related to over-diuresis. Was feeling weak, unable to walk and confused
- Metolazone discontinued
- Lasix reduced to 40 mg daily, continued for Lower ext swelling weeping likely chronic lymphedema (outpatient lymphedema clinic recommended)
- Celebrex initially held, was previously resumed as below, and placed on hold with worsening anemia and persistent rectal bleeding last dose 08/29 in AM
- IVF completed
- Na improved 130s
Hypogammaglobulinemia IgG infusion intolerant here for multiple reasons but primarily discharge prolonged due to progressive anemia bloody bowel movements. NPO after midnight for EGD. CRS also performing rectal exam under anesthesia possible anal
fissure vs necrotic hemorrhoid. Blood level relatively stable at this time. If transfusion becomes necessary, Hgb<7, patient has hx transfusion rxn hives also IgA IgG IgM deficient will need pretreatment Tylenol Benadryl and washed red cells if
transfusion becomes necessary. Otherwise recent PT evals note home with home services when stable for discharge.
Acute Confusion/Encephalopathy - Resolved
Generalized Weakness Below Baseline
Left Lower Lobe Consolidation on CT Imaging
Left Lower Lobe Atelectasis
Suspected COPD Exacerbation
Cough, Rhonchi
AFB smears positive
-UA (urine culture with no growth), Influenza (negative), COVID (negative), Ammonia (low), Coagulation Studies (okay), Serum osmoles (okay), Blood cultures (no growth to date), TSH (low but T4 wnl - outpatient follow up), Vitamin B12 (non-deficient)
-Cortisol (in the morning) was low at 1.3 -- likely suppression d/t steroids
-CT Head unremarkable
-Thiamine 100 mg PO daily
-Follow-up outpatient as per Infectious Disease for positive AFB smears
Small bibasilar pleural effusions
Small to moderate amount of pericardial effusion
-Cardiology consult appreciated
-Echocardiogram ordered, results are above
-On echo, pericardial effusion is trivial
Orthostatic Hypotension
Dizziness/Lightheadedness on Standing
-patient not tolerating abd binder, has been using knee high TEDs only
-cardio consult appreciated, midodrine increased to 10 mg TID, cardizem and lasix discontinued (lasix later resumed reduced dose for lymphedema as above), LE compression NEO bandages applied
Bright red blood through vagina and rectal areas
Bright Red Blood Per Rectum on 08/21/23
-Monitor Hgb transfuse goal Hgb>7, pretreat with tylenol and benadryl given hx transfusion rxn hives, use washed red cells given hx hypogammaglobulinemia
-outpatient OBGYN follow up
GI eval appreciated Colonoscopy performed 08/27
� � � � � � � � � � � '- Non-bleeding internal and external hemorrhoids.
�� � � � � � � � � � � - Diverticulosis in the entire examined colon.
�� � � � � � � � � � � - The examination was otherwise normal.
�� � � � � � � � � � � - One 4 mm polyp in the descending colon, removed with
�� � � � � � � � � � � a jumbo cold forceps. Resected and retrieved.
�� � � � � � � � � � � - One 8 mm polyp in the ascending colon, removed with
�� � � � � � � � � � � a hot snare. Resected and retrieved.'
GI eval appreciated upper endoscopy performed 09/01
'Patient had 2 small angioectasias in the small bowel
which can contribute to bleeding.
- Esophageal plaques were found, consistent with
candidiasis.
- 3 cm hiatal hernia.
- Normal stomach.
- Two angioectasias in the duodenum. Treated with
argon plasma coagulation (APC). Clip was placed over
the one in the 2nd portion.
- No specimens collected.
Continue fluconazole x 14 days to treat the esophageal candidiasis above.
Bleeding and anemia persisted worsened
Proton pump inhibitor PO daily while inpatient, then ok for as needed.
CTA abd pelvis appreciated no active bleeding
flex sig performed 08/29 anal fissure and hemorrhoids noted
CRS eval appreciated concern anal fissure possibly necrotic hemorrhoid npo for Rectal examination under anesthesia (EUA), cardiac and pulm risk stratifications appreciated
Patient planned for EGD Friday 09/01 and rectal exam under anesthesia with GI and CRS
Normocytic Anemia
Anemia of Chronic Disease
Patient reported remote history adverse rxn blood transfusion hives all over
Monoclonal B cell lymphocytosis
Immunosuppressed with undetectable IgG and IgA levels
-Iron Studies appreciated AOCD with Iron level wnl
-Vit B12 non-deficient
-Hematology Eval Appreciated
-September 01, 2023: today, patient preferred to have transfusion done (prior to EUA above) when we can give premeds and observe closely. Okay for leukoreduced and irradiated PRBCs today: Tylenol 650 mg PO, Benadryl 50 mg IV, Pepcid 20 mg IV,
Solucortef 100 mg IV (in addition to the steroids she is already getting). Give irradiated due to profound immunosuppression; washed PRBC's would be ideal to give but these need to come from [place] and would not be available for at least a day or
two.
History of hypogammaglobulinemia Suspected to be related to underlying lymphoproliferative disorder.
Intolerant to IVIg transfusions in the past.
Low threshold for abx initiation if new fevers or infectious symptoms
confirmed IgA IgG IgM deficient 08/26
Hypokalemia resolved at this time
-monitor and replete as necessary
Chronic dean catheter, requires Flomax
Recent Urethral Bleeding from a Urinary Catheter
Uretheral Prolapse
Bladder Spasms
Reported urinary clots
-Urology consult appreciated, cont outpt follow up with her urologist at [facility]
-Suspected atrophic vaginitis, Estrace cream started, vaginal bleeding since resolved, outpt obgyn follow up
Severe COPD
Prior history of severe persistent asthma
Chronic Hypoxic Respiratory Failure
Acute on chronic SOB due to recent episodes of strep PNA followed by COVID with deconditioning and CHF
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
Left Lower Lobe PNA , suspected RODRIGUEZ coinfection likely present on admission
-Recent admissions for Strep pneumonia and COVID
-Patient alternates 6 weeks coarse of doxycycline and Ceftin - Currently on doxycycline
-Currently on Dexamethasone IV 4mg Q12H. Later, can continue prednisone as prior to admission, currently tapering down 10mg every 5 days to baseline 5mg
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
-tapered from 30 mg to 20 mg starting 08/24 converted to IV decadron as per pulm 02/23 due to significant wheezing
-Continue Daliresp
-Continue fluticasone and salmeterol
-Continue levalbuterol prn
-Pulm eval appreciated
-Bronchoscopy performed on 08/22/23: follow bronchoalveolar lavage and cultures results acid fast bacilli positive pending speciation, PCR for TB however neg
-Infectious Disease consulted appreciated, Cefepime converted to cefdinir, no need for isolation/quarantine at this time. Cefdinir completed 08/29
Paroxysmal Atrial Fibrillation s/p Ablation
-Patient is not on anticoagulation as outpatient
-Continue diltiazem discontinued as above
Sacrum Healing Stage 3 pressure injury, POA
-Continue wound care
Anxiety/Depression
Continue Duloxetine and alprazolam
Hypothyroidism
-Continue levothyroxine
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
-Continue gabapentin and duloxetine
-Gabapentin at max dose 1800 mg at 3 divided doses for her Cr clearance, transition to pregabalin offered patient however declines at this time
Arthritis
-home celecoxib resumed 08/25, discontinued 08/29 d/t worsening anemia persistent rectal bleed,
-celecoxib subsequently substituted with tramadol prn ordered, appears to be tolerating well at this time however symptoms ('locking joints') remain uncontrolled
-consider Rheumatology eval Friday
Environment/Seasonal Allergies
-Continue fexofenadine and montelukast
History of Steroid-Induced Myopathy
PT/OT appreciated HH
DVT proph: (Previously Lovenox discontinued due to Bleeding as above) TERRI stockings, SCDs
GI ppx: protonix
Code Status: DNR/DNI
Anticipated Discharge: > 48 hours
Subjective/Interval History
-
Date of Service: September 01, 2023
Patient was seen and examined. No new significant symptoms or complaints reported,
Objective Data
-
Labs:
Laboratory Results
09/01/23
04:44
WBC 13.9 H
Hgb 7.8 L
Hct 23.5 L
Plt Count 240
Sodium 133 L
Potassium 3.8
Chloride 104
Carbon Dioxide 30
BUN 17
Creatinine 0.5 L
Glucose 129 H
Calcium 8.6
Vital Signs:
Vital Signs
Temp Pulse Resp BP Pulse Ox
97.9 F 77 18 133/81 97
09/01/23 07:30 09/01/23 07:30 09/01/23 07:30 09/01/23 07:30 09/01/23 07:30
I&O
08/31/23 09/01/23 09/02/23
06:59 06:59 06:59
Intake Total 1739 / 1739 480 / 480
Output Total 2049
Balance -310 / -310 480 / 480
[2023-09-01] MEDS: CYMBALTA DELAYED RELEASE 30 MG PO (10:09)
[2023-09-01] MEDS: FLOMAX 0.800000000000000044 MG PO (10:09)
[2023-09-01] MEDS: KCL 20 MEQ PO (10:11)
[2023-09-01] MEDS: LASIX 40 MG PO (10:11)
[2023-09-01] MEDS: ProAmatine PO ×3 (10:12→17:53)
[2023-09-01] MEDS: NON-FORMULARY ITEM 1 UNIT PO (10:12)
[2023-09-01] MEDS: MIRALAX 17 GRAMS PO (10:12)
[2023-09-01] MEDS: OSCAL 500 + D 500 MG PO ×2 (10:12→20:48)
[2023-09-01] MEDS: VITAMIN B-12 500 MCG PO (10:13)
[2023-09-01] MEDS: PROTONIX 40 MG PO (10:13)
[2023-09-01] MEDS: Pyridium 100 MG PO ×2 (10:13→22:32)
[2023-09-01] MEDS: DIFLUCAN 400 MG 200 IV (10:14)
[2023-09-01] MEDS: VITAMIN B1 100 MG PO (10:14)
[2023-09-01] MEDS: ULTRAM 25 MG PO ×2 (10:20→22:58)
[2023-09-01 10:35] LABS: Hematocrit 23.9 % (37.0-47.0); Hemoglobin 8.1 g/dL (12.0-16.0)
--- NOTE | 2023-09-01 10:39 | PTCARENOTE ---
Received pt from PACU, ambulated from stretcher to bed. Morning meds given and IV Diflucan dose hung as ordered. Pt tolerating a small glass of apple juice. Awaiting procedure for this afternoon.
--- NOTE | 2023-09-01 11:46 | W.PN.UPDATE ---
Update Note
Progress Note Update
Consulted regarding hypogammaglobulinemia complicated by allergic reaction to IVIg, monoclonal B-mary kate lymphocytosis, remote hx transfusion reaction following of son.
Profoundly immunosuppressed with undetectable IgG and IgA levels.
Saw Dr. Mychal Diamond once.
Now with GI bleeding. Pt recognizes need for transfusion and is concerned that she will bleed during procedure. Prefers to have transfusion now when we can give premeds and observe closely.
Give irradiated due to profound immunosuppression.
Ideally would give washed PRBC's but these need to come from [place] and would not be available until at least tomorrow.
There is one unit of irradiated PRBC's available for her.
Plan:
Transfuse 1 unit PRBC's, leukoreduced and irradiated, now with following premeds.
- Tylenol 650 mg PO
- Benadryl 50 mg IV
- Pepcid 20 mg IV
- Solucortef 100 mg IV (in addition to the steroids she is already getting).
Ideally the blood would be infused slowly if it can be completed before she goes to OR this afternoon at 3:30.
Full consult to follow.
[2023-09-01] MEDS: TYLENOL 650 MG PO ×2 (12:01→23:05)
[2023-09-01] MEDS: NSS (PRESERVATIVE FREE) 8 ML IV (12:02)
[2023-09-01] MEDS: PEPCID 20 MG IV (12:02)
[2023-09-01] MEDS: BENADRYL 50 MG IV (12:02)
[2023-09-01] MEDS: SOLU-CORTEF 100 MG IV (12:03)
--- NOTE | 2023-09-01 12:42 | CM ---
Patient seen bedside.
Patient for surgery this afternoon.
Patient interested in [facility] skilled rehab vs home, will need PT/OT evaluation post op.
Plan: possible skilled rehab vs home with VN.
--- NOTE | 2023-09-01 12:52 | PTCARENOTE ---
Addendum entered by Beulah Miguel RN 09/01/23 16:22:
Pt tolerated 1st 15 minutes of transfusion without reaction.
Original Note:
Blood issued from blood bank with pink slip. Attempted to use TAR for blood and product would not scan appropriately. 2 person verification on pink sheet obtained and blood started within 6 minutes of receiving from lab.
Pre treatments given as ordered : Solucortef 100mg IV, Pepcid 2mg IV, Benadryl 50mg IV and Tylenol 650mg po 30 min prior to transfusion started. Pt somewhat sleepy after receiving the Benadryl.
--- NOTE | 2023-09-01 13:25 | W.PN.ID1 ---
Date of Service
Date of Service: September 01, 2023
Today's Communication
Agree with fluconazole x14 days
Outpatient follow-up in [address] Carlin, to discuss options.
Assessment / Plan
Left lower lobe pneumonia
Hypoxemia
Suspected exacerbation of COPD
Recovery of Mycobacterium from [facility] sample
- PCR negative for Mycobacterium tuberculosis; suspect RODRIGUEZ
Monoclonal B-cell lymphocytosis
P A-fib
Hypothyroidism
Gait dysfunction
Hx Steroid-induced myopathy
Recommendations:
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
Agree with fluconazole x14 days
LFTs were normal 08/29
QTc acceptable at 430
Completed cefdinir
AFB smears are noted to be positive.
Dr Carlin had a long discussion with the patient 08/27 regarding the positive AFB smears. No history of tuberculosis exposure noted.
TB PCR negative; will need to await final speciation of recovered AFB.
Outpatient follow-up in [address] Carlin, to discuss options.
����������������������������������������������������������
Chief Complaint
-: Pneumonia
Subjective / Review of Systems
afebrile
bp stable
c lusitaniae (typically sensitive to azoles) IDd at EGD, and she was started on fluconazole - plan for 14 day course
no new complaints
Vital Signs / Physical Exam
Vital Signs
Vital Signs
Temp Pulse Resp BP Pulse Ox
98.2 F 73 18 140/84 95
09/01/23 12:57 09/01/23 12:57 09/01/23 12:57 09/01/23 12:57 09/01/23 10:25
Physical Exam
Constitutional: No Acute Distress
Cardiovascular: Regular Rate and S1/S2; Negative Murmur or Rub
Pulmonary: Clear and Symmetric; Negative Wheezes or Rales
Gastrointestinal: Soft, Non Tender, Non Distended and Normal Bowel Sounds
Skin: Warm and Dry; Negative Rash or Jaundice
Objective Data
Lab Data
Lab Results
09/01/23 14:00
09/01/23 04:44
PT 12.6 Sec (11.4-14.6) 08/19/23 13:02
INR 0.96 08/19/23 13:02
APTT 22.9 Sec (23.4-35.0) L 08/19/23 13:02
Estimated Creat Clear 74 ml/min 09/01/23 04:44
Lactic Acid 1.9 mmol/L (0.7-2.0) 08/16/23 19:17
Total Bilirubin 0.7 mg/dl (0.2-1.3) 08/29/23 07:01
AST 17 U/L (14-36) 08/29/23 07:01
ALT 18 U/L (0-35) 08/29/23 07:01
Alkaline Phosphatase 33 U/L (38-126) L 08/29/23 07:01
Most recent labs reviewed.
Micro Results:
08/22/23 09:56 Fungal Culture - Preliminary
Bronch Left Lower Lobe Yeast
08/22/23 13:56 Fungus Mold Identification - Preliminary
Bronch Left Lower Lobe Clavispora lusitaniae
08/22/23 09:56 Fungal Culture - Preliminary
Bronch Left Upper Lobe Culture in progress.
Positive cultures are reported as soon as detected.
Final report to follow in four to five weeks.
08/22/23 09:56 Acid Fast Bacilli Smear - Preliminary
Bronch Left Lower Lobe Acid Fast Bacilli Culture - Preliminary
Acid fast bacilli
Specimen Source - Final
Mycobacterium tuberculosis DNA (PCR - Final
M. tuberculosis Rifampin (PCR) - Final
M. tuberculosis Complex Interpretat - Final
08/19/23 16:02 Blood Culture - Final
Blood/Venous No Growth - Final Report
08/22/23 09:56 Acid Fast Bacilli Smear - Preliminary
Bronch Left Upper Lobe Acid Fast Bacilli Culture - Preliminary
Acid fast bacilli
08/19/23 13:02 Blood Culture - Final
Blood/Venous No Growth - Final Report
08/22/23 09:56 Respiratory Culture - Final
Bronch Left Upper Lobe Usual Respiratory Kayla
Gram Stain - Final
08/22/23 09:56 Respiratory Culture - Final
Bronch Left Lower Lobe Usual Respiratory Kayla
Gram Stain - Final
08/21/23 11:11 Respiratory Culture - Final
Sputum Usual Respiratory Kayla
Gram Stain - Final
08/20/23 20:54 Respiratory Culture - Final
Sputum Gram Stain - Final
08/19/23 12:40 Urine Culture - Final
Urine NO GROWTH
08/19/23 12:39 Influenza Types A & B ([place]) - Final
Nasal Swab Negative for Influenza A & B, NAAT
Negative results must be combined with clinical observations
and patient history.
Nucleic Acid Amplification test (NAAT)performed on the
[employer] platform.
08/16/23 20:05 Urine Culture - Final
Urine NO GROWTH
[2023-09-01] MEDS: NEURONTIN PO (15:00)
--- NOTE | 2023-09-01 15:07 | W.PN.PUL3 ---
Today's Communication / Plan
-
Wean down the steroids given evidence of candidiasis in the esophagus
Continue current inhaler/nebulizer therapy
Eventual outpatient follow-up with infectious disease throughout the rest RODRIGUEZ
Wean down FiO2 as able.
Assessment
-
Patient is a 72 year old F with PMH significant for PAF, severe persistent asthma, hypothyroidism admitted 08/16/23 for abnormal sodium (Na =122).� Patient was admitted here Jun for Strep pneumonia.� She was discharged to [facility]'s rehab
and then admitted to [facility] with COVID.� Patient states that she then began to develop increased edema/fluid retention in the legs.� She was started on a diuretic regimen consisting of BID Lasix and daily metolazone. In the past 12 hours, she notes
worsening cough/SOB.� Per daughter who provides history on the phone, this was a change that they witnessed since she's been admitted. They have requested pulmonary evaluation 08/19/23. Patient stabilized and pulmonary initially signed off 08/27/23
and pulmonary was consulted again . As surgery wants to do rectal exam under anesthesia and asking for perioperative risks. 08/29/23.
Symptomatic hypovolemic hyponatremia likely 2/2 over-diuresis -hyponatremia now resolved
Asthma-moderate persistent with acute exacerbation
GI bleed-felt to be secondary to rectal fissure and necrotic hemorrhoid
Acute Confusion/Encephalopathy related to above - confused resolved now
Generalized weakness
Chronic cough, nonproductive
Acute on chronic SOB -likely due to RODRIGUEZ
Urinary retention s/p Alicia
Severe persistent asthma requiring biologic therapy now with acute exacerbation
LLL consolidation - chronic since November 2022 (unknown if present prior to that as we do not have imaging before that time)
Conditions [employer]:
Adm Jul 2023 for Strep PNA with AE asthma
Adm November 2022: acute hypoxemic respiratory failure, CAP LLL infiltrate, markedly ^PCT, asthma exacerbation. Completed 5d cefepime
Severe asthma, on daliresp, fluticasone, montelukast, salmeterol
Follows up at [facility] and [facility]
Monoclonal B-cell lymphocytosis
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
AFib s/p ablation
Hypothyroidism
Hysterectomy
R hip replacement
Cataract surgery
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
Seasonal allergies
Intermittent epistaxis, historically L>>>R
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
Allergy to azithromycin
DNR
Plan
Comfortable from the respiratory status.-Not bronchospastic
Currently 94% on 3 L-stable
Patient does not have prior history of oxygen use, however, while at rehabilitation, was receiving 3 L
-
She has prior history of severe persistent asthma, being managed by Dr Neely/[facility] as well.
She was recently on a prednisone taper after Jul 2019 for admission.� She does feel better with oral steroid dosing.
Recent spirometry as outpatient demonstrating poor effort/cough throughout, but FEV1 1.63L 73%
Improved from the pulmonary perspective-less bronchospastic, currently on IV steroids formulas IV every 8.
With EGD findings: Esophageal candidiasis we will try to wean off as soon as possible.
-
Continue nebulizers
Singulair continues
Mucolytic's
Antitussives
Daliresp continues
Continue fluticasone/serevent bid, patient can take her own
Continue levalbuterol HFA/nebs prn
Last time in Dr Neely office 05/2023 - [place] ( Biologic therapy was started per [facility] Doctor)
-
Suspect patient has acute on chronic SOB due to recent episodes of strep PNA followed by COVID with deconditioning and CHF
CXR 08/19/23 showing L basilar atelectasis but not significantly changed from prior, never had chest CT.
Repeat PFT showing decline but still within moderate range
6MWT pending: patient declined on 08-19
Other imaging reviewed, CT Chest obtained showing LLL consolidation, there is small pericardial effusion (trivial on TTE 08-20-23)
Patient is status post bronch with BAL on 08/22/23 -growing AFB, suspected to be RODRIGUEZ.� Follow-up sensitivities.� Follow-up fungus and bacterial culture. No lung biopsies.
ID recommended outpx follow up to address RODRIGUEZ.
-
ECHO results in past reviewed--stable function
Patient's repeat ECHO on 08/20/2023 shows normal biventricular function.
Diuretics per primary team.
-
DVT prophylaxis-mechanical
GI prophylaxis-pantoprazole.
Nutrition per GI.
Early mobilization
Patient should follow up with Dr Neely in 3-4 wks
Will follow

Diagnostic Data
CXR 08/19/23- LLL atelectasis
CXR 07/10/23- IMPRESSION: There is consolidation in the left lower lobe consistent with improving pneumonia along with a left pleural effusion. There is probable atelectasis in the right lower lobe.
CXR 07-05-23: Progressed findings suggesting mild left lower lobe pneumonia; New moderate right lower lobe probable atelectasis; Mild cardiomegaly. Stable
CXR 07-03-23 c/w November 15 and . Baseline films with improved LLL infiltrate but persistently blurred L diaphragm. Current films without gross infiltrates but suspicious for positive spine sign at L base
CT Chest 08/20/23: Left base consolidation and/or atelectasis, small amount of right base atelectasis with shift of the mediastinum toward the left. No discrete mediastinal or hilar mass identified however repeat imaging with IV contrast after
treatment is recommended to exclude an occult process. Small bibasilar pleural effusions. Small to moderate amount of pericardial effusion.
Spirometry 08/20/22: FEV1 1.21L 54%, FVC 1.46L 49%, ratio 83. Post FEV1 1.27L 57% no BD response. (mixed pattern, moderately reduced, decreased from prior testing but remains in moderate category)
PFT:
Spirometry 05/23/2023: FEV1/FVC 82%, FEV1 1.63 L-73%, FVC 1.97 L, 66%.� No airflow obstruction.� Patient has difficulty with the maneuvers due to coughing.
Crow 12/17/22: unable.
6 MWT:
6MWT 12/17/22: At rest, O2 99% on room air, heart rate 82. With ambulation, O2 remained at 99 to 100% on room air, max heart rate 90. 5/10 on dyspnea scale. Only able to ambulate 150 feet
ECHO 07/08/23- �LV ejection fraction is 60-65%, by visual assessment. No regional wall motion�abnormalities are seen.�Normal right ventricular size and function.�No significant valvular disease.�No prior study available for comparison.
Subjective Data
-
Date of Service:
Date of Service: September 01, 2023
Chief Complaint: Pulmonary Follow Up and Dyspnea Follow Up
Subjective:
Tolerated endoscopy.
No new pulmonary complaints.
Objective Data
Data Reviewed
Vital Signs / I&O / Oxygen:
Vital Signs
Temp Pulse Resp BP Pulse Ox
98.2 F 73 18 140/84 95
09/01/23 12:57 09/01/23 12:57 09/01/23 12:57 09/01/23 12:57 09/01/23 10:25
Intake and Output
08/31/23 09/01/23 09/02/23
06:59 06:59 06:59
Intake Total 1740 / 1740 480 / 480
Output Total 2049
Balance -310 / -310 480 / 480
SaO2 95
Nasal Cannula flow liters per 3
minute
Physical Exam
General: Comfortable and Other (Mild kyphoscoliosis)
HEENT: Normocephalic, Anicteric and Moist Mucous Membranes
Cardiovascular: S1-S2, Regular Rhythm, Murmur (n), Peripheral Edema (tr) and Other (Mild drainage, lower extremities)
Respiratory: Wheeze (Mild, worse with cough spasms), Crackles (Few at left base), Rhonchi (negative), Non-Labored Respirations and Stridor (negative)
GI: Soft, Non Distended, Non Tender and Normal Bowel Sounds
Neurology: Awake, Alert and No Motor Deficits
Skin: Good Color, Cyanosis (n) and Jaundice (n)
Labs/Micro/Reports
Lab Data
09/01/23 14:00
09/01/23 04:44
Microbiology
08/22/23 09:56 Bronch Left Upper Lobe Fungal Culture - Preliminary
Culture in progress.
Positive cultures are reported as soon as detected.
Final report to follow in four to five weeks.
08/22/23 09:56 Bronch Left Lower Lobe Fungal Culture - Preliminary
Yeast
08/22/23 13:56 Bronch Left Lower Lobe Fungus Mold Identification - Preliminary
Clavispora lusitaniae
[2023-09-01] MEDS: Pyridium PO (16:20)
--- NOTE | 2023-09-01 16:50 | W.IMMPOSTOP ---
Addendum entered and electronically signed by Baljinder Pina MD 09/03/23 20:07:
Error in initial report: anal ulcer is ANTERIOR
Addendum entered and electronically signed by Baljinder Pina MD 09/01/23 17:30:
Spoke with Jerrica, the patient's daughter, and updated her with the operative findings
Original Note:
Surgical Immed Post Op Note
-
Primary Surgeon: Baljinder Pina MD
Assisting Surgeon: None
Pre-op Diagnosis: Rectal bleeding
Post-op Diagnosis: Posterior anal ulcer
Procedure Performed: Exam under anesthesia, biopsy of anal ulcer, fulguration of anal ulcer
Anesthesia Type: Sedation with local
Specimen / Cultures: Edges of anal ulcer, base of anal ulcer
Estimated Blood Loss: 20 mL
Complications: None
Operative Findings: Per op note
--- NOTE | 2023-09-01 17:03 | OR.RPT ---
Addendum entered and electronically signed by Baljinder Pina MD 09/03/23 20:08:
Error/typo in original report: the anal ulcer is located ANTERIORLY
Original Note:
Operative Report
Operative Report
DATE OF OPERATION: 09/01/2023
SURGEON: Baljinder Pina MD
PREOPERATIVE DIAGNOSIS: Anorectal bleeding
POSTOPERATIVE DIAGNOSIS: Posterior anal ulcer
OPERATION: Exam under anesthesia, biopsy of anal ulcer, fulguration of anal ulcer, bilateral pudendal nerve block
ASSISTANTS:
1. None
ANESTHESIA: MAC w/ local
ESTIMATED BLOOD LOSS: 20 mL
FINDINGS:
1. Posterior anal ulcer at the distal anal canal in the posterior quadrant, spanning a quarter of the circumference of the anal canal; this ulcer was friable and oozed with bright red blood with minimal disturbance
2. Small 5 mm thrombosed external hemorrhoid within the anal ulcer
3. Fulguration of the base of ulcer with electrocautery for complete hemostasis and placed a Surgifoam anal tampon
SPECIMENS:
1. Edges of anal ulcer
2. Base of anal ulcer
DRAINS: None
COMPLICATIONS: None
INDICATIONS: The patient is a 72-year-old female who has a PMH of B-cell lymphocytosis, chronic LLL pneumonia, severe asthma, who presented initially with hyponatremia and exacerbation of her asthma. She developed bright red bleeding per rectum
during her admission. A flexible sigmoidoscopy that was done by Dr. Huitron showed a finding concerning for an anal fissure versus an ischemic hemorrhoid. Therefore, I recommended exam under anesthesia for diagnosis and possible treatment. The
operation was discussed with the patient in detail, including the risks, benefits and alternatives. Risks described included, but not limited to bleeding, infection, damage to nearby structures such as the anal sphincter, fecal incontinence,
recurrence, urinary retention, and anesthetic risks, including but not limited to need for general anesthesia and respiratory failure. The patient understood and agreed to proceed. The consent was signed and placed in the chart on 08/31/2023.
PROCEDURE IN DETAIL: The patient was taken to the operating room and placed on the operating table in prone position. Sequential compression devices were placed bilaterally. Sedation was commenced without complication. Two seat belts were secured
around the legs and upper back. Arms were secured to the armboard. All pressure points were padded with eggcrate foam. The buttocks were taped apart. The perineum was prepped and draped in the usual fashion. A time-out was then performed
verifying the correct patient, procedure, operative site, positioning, and special equipment.
Local anesthesia used was a mixture of 60 mL of 0.25% Marcaine with epinephrine and 0.6 mL of dexamethasone. 40 mL was injected perianally at the beginning of the case. The anorectal exam was performed assessing all four quadrants of the anal canal
using Hill-Fox retractors in progressively increasing size. She had numerous small about 5 mm nonthrombosed external hemorrhoids circumferentially. Her internal hemorrhoids were physiologic in size and not bleeding or irritated. There was no
anal fissure noted. There was an anal ulcer noted at the distal anal canal overlying the anal verge. This ulcer extended about 25% of the circumference of the posterior anal canal. The base of the ulcer was friable and oozed with palpation.
There was also a small 5 mm thrombosed external hemorrhoid in the left posterior region within the ulcer. I discussed this finding with my partner, Dr. Toney Vance, over the phone. He agreed with the assessment and my plan.
As the etiology of this ulcer was not clear, I proceeded with biopsies of both the edge of the ulcer at 2 locations and the base. The biopsies were taken using a Burkinan forceps to elevate the tissue and a Metzenbaum scissors to excise it. The
biopsy sites were controlled with electrocautery. There was significant oozing from the biopsy sites, but this was controlled with electrocautery and holding pressure for 5 minutes. The remainder of the anal ulcer was fulgurated with the
electrocautery, including the small thrombosed external hemorrhoid. Hemostasis was confirmed. The anal canal was evaluated once more in all 4 quadrants and no other pathology was noted.
A Surgifoam rectal tampon was placed in the anal canal prophylactically. At the end of the case, the remaining 20 mL of local were injected. 5 mL was injected bilaterally for a pudendal nerve block. 10 mL was injected around the surgical site and
perianally.
At this point, the procedure was complete. All needle, sponge and instrument counts were correct. The patient tolerated the procedure well and was transferred to the recovery room in stable condition with gauze dressing in place secured with silk
tape.
DICTATED BY: Baljinder Pina MD
[2023-09-01] MEDS: VITAMIN C 500 MG PO (17:53)
--- NOTE | 2023-09-01 18:04 | W.PN.UPDATE ---
Update Note
Progress Note Update
In light of no significant findings on EGD/Colon - other than anal findings GI will sign off.
Please call us back with any questions or concerns.
--- NOTE | 2023-09-01 19:24 | PTCARENOTE ---
Received pt from PACU around 1750, A,A+O but very drowsy. Arousable. Rectal tampon intact without drainage. Meds given and pt ordering dinner.
[2023-09-01] MEDS: CYMBALTA DELAYED RELEASE 60 MG PO (20:48)
--- NOTE | 2023-09-01 21:16 | W.PN.ONC2 ---
Today's Communication / Plan
-
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
Profoundly immunosuppressed with undetectable IgG and IgA levels.
Now with GI bleeding.� Pt recognizes need for transfusion and is concerned that she will bleed during procedure.� Prefers to have transfusion now when we can give premeds and observe closely.
Give irradiated due to profound immunosuppression.
There is one unit of irradiated PRBC's available for her.
Plan:
Transfuse 1 unit PRBC's, leukoreduced and irradiated, now with following premeds.
- Tylenol 650 mg PO
- Benadryl 50 mg IV
- Pepcid 20 mg IV
- Solucortef 100 mg IV (in addition to the steroids she is already getting).
Impression
Impression
Symptomatic Hypovolemic Hyponatremia related to over-diuresis.
Weakness Below Baseline
Left Lower Lobe Consolidation on CT Imaging
Left Lower Lobe Atelectasis
Small bibasilar pleural effusions
Small to moderate amount of pericardial effusion
Orthostatic Hypotension
Bright red blood through vagina and rectal areas
Bright Red Blood Per Rectum on 08/21/23
Normocytic Anemia
Paroxysmal Atrial Fibrillation s/p Ablation
Monoclonal B call lymphocytosis
Steroid-Induced Myopathy
Plan
Plan
-Normocytic anemia
- retic count elevated at 3.5% in setting of GIB, no lab evidence to suggest hemolysis.
- Normal platelet count
- Hb with slow downtrend however mild improvement today up to 8.4 g/dl. continue to monitor.
- H/o one blood transfusion intolerant, developed hives
- hx of CLL-MBL. Flow cyto showed 23% of leukocytes with CLL phenotype.
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 Suspected to be related to underlying lymphoproliferative disorder. Intolerant to IVIg transfusions in the past. No signs of active infection at this time. low threshold for abx initiation if new fevers
or infectious symptoms.
- If HB <7 then premedication with tylenol, benedryl prior to blood transfusion
Subjective/Objective
Chief Complaint
Hematology/Oncology follow up of hx CLL, hypogammaglobulinemia, transfusion reaction
Subjective
Amenable to blood transfusion
Vital Signs:
Vital Signs
Temp Pulse Resp BP Pulse Ox
98.2 F 87 18 126/72 96
09/01/23 21:00 09/01/23 21:00 09/01/23 21:00 09/01/23 21:00 09/01/23 21:00
Lab Results:
Laboratory Data
WBC 13.9 10^3/uL (4.8-10.8) H 09/01/23 04:44
Hgb Cancelled 09/01/23 14:00
Plt Count 240 10^3/uL (130-400) 09/01/23 04:44
PT 12.6 Sec (11.4-14.6) 08/19/23 13:02
INR 0.96 08/19/23 13:02
APTT 22.9 Sec (23.4-35.0) L 08/19/23 13:02
eGFR > 60.00 09/01/23 04:44
Physical Exam
Awake, alert, non-toxic
Orders
Orders
Orders From Last 24 Hours
09/01/23 11:40
Acetaminophen [Tylenol] 650 mg PO NOW STA
09/01/23 11:41
* Blood Bank Products Routine
09/01/23 11:44
Famotidine [Pepcid] 20 mg IV NOW STA
09/01/23 11:45
Hydrocortisone Sod Succinate [Solu-Cortef] 100 mg IV NOW ONE
09/01/23 11:47
Diphenhydramine [Benadryl] 50 mg IV NOW STA
09/01/23 11:48
0.9% Sodium Chloride [Nss (Preservative Free)] 8 ml IV NOW STA
[2023-09-01] MEDS: DALIRESP 500 MCG PO (22:31)
[2023-09-01] MEDS: SINGULAIR 10 MG PO (22:31)
[2023-09-01] MEDS: ESTRACE 0.01% VAGINAL CREAM 1 APPLIC VAG (22:35)
[2023-09-01] MEDS: XANAX 0.5 MG PO (22:58)
[2023-09-02] VITALS (9 sets, daily range): BP systolic 89–136; BP diastolic 51–91; PULSE 102–110; O2SAT 94; BMI 22.0; BMI 21.6
[2023-09-02] MEDS: NEURONTIN 600 MG PO ×3 (06:18→22:09)
[2023-09-02] MEDS: SYNTHROID 125 MCG PO (06:19)
[2023-09-02] MEDS: TESSALON PERLES 100 MG PO ×3 (06:22→23:56)
[2023-09-02] MEDS: ULTRAM 25 MG PO ×2 (06:22→17:54)
[2023-09-02] MEDS: LASIX 40 MG PO (06:28)
[2023-09-02] MEDS: FLOMAX 0.800000000000000044 MG PO (06:28)
[2023-09-02] MEDS: XOPENEX 0.63 MG INHALANT SOLUTION 0.630000000000000004 MG INH ×3 (07:40→20:10)
[2023-09-02] MEDS: NON-FORMULARY ITEM 1 UNIT INH ×2 (07:42→20:10)
[2023-09-02] MEDS: NON-FORMULARY ITEM 2 INH INH ×2 (07:44→20:10)
[2023-09-02] MEDS: DIFLUCAN 200 MG PO (08:08)
[2023-09-02] MEDS: MIRALAX 17 GRAMS PO (08:08)
[2023-09-02] MEDS: VITAMIN B-12 500 MCG PO (08:08)
[2023-09-02] MEDS: CYMBALTA DELAYED RELEASE 30 MG PO (08:08)
[2023-09-02] MEDS: METAMUCIL, KONSYL PO ×2 (08:08→08:45)
[2023-09-02] MEDS: Pyridium 100 MG PO ×3 (08:08→22:09)
[2023-09-02] MEDS: PROTONIX 40 MG PO (08:08)
[2023-09-02] MEDS: OSCAL 500 + D 500 MG PO ×2 (08:08→22:02)
[2023-09-02] MEDS: KCL 20 MEQ PO (08:08)
[2023-09-02] MEDS: VITAMIN B1 100 MG PO (08:08)
[2023-09-02] MEDS: HYDROCORTISONE 2.5% CREAM 1 APPLIC TOPICAL ×2 (08:09→22:02)
[2023-09-02] MEDS: ProAmatine PO ×2 (08:12→13:00)
[2023-09-02] MEDS: NON-FORMULARY ITEM 1 UNIT PO (08:14)
[2023-09-02] MEDS: NON-FORMULARY ITEM 1 SPRAY NASAL (08:15)
[2023-09-02] MEDS: NON-FORMULARY ITEM 2 SPRAY NASAL ×2 (08:16→22:10)
[2023-09-02 08:36] LABS: Hematocrit 30.1 % (37.0-47.0); Mean Corp Hgb Conc. 33.6 g/dL (33.0-37.0); Mean Corpuscular Hgb 32.3 pg (27.0-31.0); Mean Corpuscular Volume 96.2 fL (81.0-99.0); Mean Platelet Volume 9.1 fL (7.4-10.4); Platelet Count 255 10^3/uL (130-400); Red Blood Cell Count 3.13 10^6/uL (4.20-5.40); White Blood Cell Count 14.5 10^3/uL (4.8-10.8)
[2023-09-02 08:49] LABS: Hemoglobin 10.1 g/dL (12.0-16.0)
[2023-09-02 09:08] LABS: Blood Urea Nitrogen 16 mg/dl (7-17); Calcium 8.3 mg/dl (8.4-10.2); Carbon Dioxide 29 mmol/L (22-30); Chloride 102 mmol/L (98-107); Estimated Creatinine Clearance 74 ml/min; Glucose 147 mg/dl (70-99); Magnesium 2.5 mg/dl (1.6-2.3); Phosphorus 2.8 mg/dl (2.5-4.5); Potassium 4.1 mmol/L (3.5-5.1); Sodium 134 mmol/L (135-145); eGFR > 60.00
[2023-09-02] MEDS: DECADRON 4 MG IV (09:33)
--- NOTE | 2023-09-02 10:30 | W.PN.CRS1 ---
Today's Communication / Plan
-
await rectal biopsy
Assessment/Plan
-
POD#1 Exam under anesthesia, biopsy of anal ulcer, fulguration of anal ulcer
1. Vitals normal.
2. WBC 14.5 from 13.9, trend.
3. Continue regular diet.
4. Rectal tampon will fall out with a bowel movement.
5. Calmol suppositories PRN. Metamucill daily.
6. Rectal biopsy pending.
Subjective Data
Procedure
09/01- Exam under anesthesia, biopsy of anal ulcer, fulguration of anal ulcer
Subjective Data
Date of Service: September 02, 2023
Patient states she has not had any bowel movements since surgery. She has no miranda bleeding. She has questions, but no complaints.
Objective Data
-
Vital Signs
Temp Pulse Resp BP Pulse Ox
98.4 F 84 18 136/91 95
09/02/23 07:23 09/02/23 07:23 09/02/23 07:23 09/02/23 07:23 09/02/23 07:23
Intake & Output
09/01/23 09/02/23 09/03/23
06:59 06:59 06:59
Intake Total 480 / 480 820 / 820
Output Total 2750 / 2750
Balance 480 / 480 -1930 / -1930
Intake:
Oral fluids 480 / 480 720 / 720
IV fluids (Total) 100 / 100
Normosal 100 / 100
Output:
Urine, Voided 2750 / 2750
Other:
Number of approximated LARGE 2
amounts of urine
Lab Results
09/02/23 08:04
09/02/23 08:04
Physical Exam
-
General: No Acute Distress and AOx3
Skin: Warm and Dry
[2023-09-02] MEDS: [UNRECOGNIZED DRUG - OTHER] 1 EACH RECTAL (12:10)
--- NOTE | 2023-09-02 12:30 | PTCARENOTE ---
Pt with small amount blood noted on toilet paper after using bathroom several times. Small clots also noted. Dr. Pina made aware.
--- NOTE | 2023-09-02 13:13 | CM ---
Patient seen bedside.
Per patient continues with bleeding.
Per patient she remains orthostatic.
Patient vacillating between home with VN vs skilled rehab.
PT recommendations noted.
Patient known to [facility].
Plan: home with [facility] vs skilled rehab.
--- NOTE | 2023-09-02 13:23 | W.PN.ID1 ---
Date of Service
Date of Service: September 02, 2023
Today's Communication
continue fluconazole
Assessment / Plan
Left lower lobe pneumonia
Hypoxemia
Suspected exacerbation of COPD
Recovery of Mycobacterium from [facility] sample
- PCR negative for Mycobacterium tuberculosis; suspect RODRIGUEZ
Monoclonal B-cell lymphocytosis
P A-fib
Hypothyroidism
Gait dysfunction
Hx Steroid-induced myopathy
Recommendations:
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
Agree with fluconazole x14 days
LFTs were normal 08/29
Repeat QTc today essentially unchanged
Completed cefdinir
AFB smears are noted to be positive. Dr Carlin had a long discussion with the patient 08/27 regarding the positive AFB smears. No history of tuberculosis exposure noted.
TB PCR negative; will need to await final speciation of recovered AFB.
Outpatient follow-up in [address] Carlin, to discuss options.
����������������������������������������������������������
Chief Complaint
-: Other (candidal esophagitis)
Subjective / Review of Systems
afebrile
bp stable
slightly increased leukocytosis
cr stable
await ID of the AFB
s/p fulguration of anal ulcer
Vital Signs / Physical Exam
Vital Signs
Vital Signs
Temp Pulse Resp BP Pulse Ox
98.3 F 85 18 118/51 96
09/02/23 11:13 09/02/23 11:13 09/02/23 11:13 09/02/23 11:13 09/02/23 11:13
Physical Exam
Constitutional: No Acute Distress
Cardiovascular: Regular Rate and S1/S2; Negative Murmur or Rub
Pulmonary: Symmetric, Wheezes (minimal), Non Labored and Other; Negative Rales
Gastrointestinal: Soft, Non Tender, Non Distended and Normal Bowel Sounds
Skin: Warm and Dry; Negative Rash or Jaundice
Neurological: Awake
Objective Data
Lab Data
Lab Results
09/02/23 08:04
09/02/23 08:04
PT 12.6 Sec (11.4-14.6) 08/19/23 13:02
INR 0.96 08/19/23 13:02
APTT 22.9 Sec (23.4-35.0) L 08/19/23 13:02
Estimated Creat Clear 74 ml/min 09/02/23 08:04
Lactic Acid 1.9 mmol/L (0.7-2.0) 08/16/23 19:17
Total Bilirubin 0.7 mg/dl (0.2-1.3) 08/29/23 07:01
AST 17 U/L (14-36) 08/29/23 07:01
ALT 18 U/L (0-35) 08/29/23 07:01
Alkaline Phosphatase 33 U/L (38-126) L 08/29/23 07:01
Most recent labs reviewed.
Micro Results:
08/22/23 13:56 Fungus Mold Identification - Final
Bronch Left Lower Lobe Clavispora lusitaniae
08/22/23 09:56 Acid Fast Bacilli Smear - Preliminary
Bronch Left Upper Lobe Acid Fast Bacilli Culture - Preliminary
Acid fast bacilli
08/22/23 09:56 Fungal Culture - Preliminary
Bronch Left Upper Lobe Culture in progress.
Positive cultures are reported as soon as detected.
Final report to follow in four to five weeks.
08/22/23 09:56 Fungal Culture - Preliminary
Bronch Left Lower Lobe Yeast
08/22/23 09:56 Acid Fast Bacilli Smear - Preliminary
Bronch Left Lower Lobe Acid Fast Bacilli Culture - Preliminary
Acid fast bacilli
Specimen Source - Final
Mycobacterium tuberculosis DNA (PCR - Final
M. tuberculosis Rifampin (PCR) - Final
M. tuberculosis Complex Interpretat - Final
08/19/23 16:02 Blood Culture - Final
Blood/Venous No Growth - Final Report
08/19/23 13:02 Blood Culture - Final
Blood/Venous No Growth - Final Report
08/22/23 09:56 Respiratory Culture - Final
Bronch Left Upper Lobe Usual Respiratory Kayla
Gram Stain - Final
08/22/23 09:56 Respiratory Culture - Final
Bronch Left Lower Lobe Usual Respiratory Kayla
Gram Stain - Final
08/21/23 11:11 Respiratory Culture - Final
Sputum Usual Respiratory Kayla
Gram Stain - Final
08/20/23 20:54 Respiratory Culture - Final
Sputum Gram Stain - Final
08/19/23 12:40 Urine Culture - Final
Urine NO GROWTH
08/19/23 12:39 Influenza Types A & B (DIEOG) - Final
Nasal Swab Negative for Influenza A & B, NAAT
Negative results must be combined with clinical observations
and patient history.
Nucleic Acid Amplification test (NAAT)performed on the
[employer] NOW platform.
08/16/23 20:05 Urine Culture - Final
Urine NO GROWTH
Care Review
Plan reviewed with: Physician (Dr Coleman/Yonas - pred and dexamethasone )
--- NOTE | 2023-09-02 14:28 | W.PN.PUL3 ---
Today's Communication / Plan
-
Decrease dexamethasone, hopefully can transition to prednisone in the next 48 hours
Continue nebulizer therapy
Continue oxygen therapy
Secretion clearance intervention will continue
Assessment
-
Patient is a 72 year old F with PMH significant for PAF, severe persistent asthma, hypothyroidism admitted 08/16/23 for abnormal sodium (Na =122).� Patient was admitted here Jun for Strep pneumonia.� She was discharged to [facility]'s rehab
and then admitted to [facility] with COVID.� Patient states that she then began to develop increased edema/fluid retention in the legs.� She was started on a diuretic regimen consisting of BID Lasix and daily metolazone. In the past 12 hours, she notes
worsening cough/SOB.� Per daughter who provides history on the phone, this was a change that they witnessed since she's been admitted. They have requested pulmonary evaluation 08/19/23. Patient stabilized and pulmonary initially signed off 08/27/23
and pulmonary was consulted again . As surgery wants to do rectal exam under anesthesia and asking for perioperative risks. 08/29/23.
Symptomatic hypovolemic hyponatremia likely 2/2 over-diuresis -hyponatremia now resolved
Asthma-moderate persistent with acute exacerbation
GI bleed-felt to be secondary to rectal fissure and necrotic hemorrhoid
Acute Confusion/Encephalopathy related to above - confused resolved now
Generalized weakness
Chronic cough, nonproductive
Acute on chronic SOB -likely due to RODRIGUEZ
Urinary retention s/p Alicia
Severe persistent asthma requiring biologic therapy now with acute exacerbation
LLL consolidation - chronic since November 2022 (unknown if present prior to that as we do not have imaging before that time)
Conditions DERRICK HAND:
Adm Jul 2023 for Strep PNA with AE asthma
Adm November 2022: acute hypoxemic respiratory failure, CAP LLL infiltrate, markedly ^PCT, asthma exacerbation. Completed 5d cefepime
Severe asthma, on daliresp, fluticasone, montelukast, salmeterol
Follows up at [facility] and [facility]
Monoclonal B-cell lymphocytosis
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
AFib s/p ablation
Hypothyroidism
Hysterectomy
R hip replacement
Cataract surgery
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
Seasonal allergies
Intermittent epistaxis, historically L>>>R
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
Allergy to azithromycin
DNR
Plan
Comfortable from the respiratory status.- Mild bilateral exp wheezing, coughing during visit.
Currently 94% on 3 L-stable
Patient does not have prior history of oxygen use, however, while at rehabilitation, was receiving 3 L
-
She has prior history of severe persistent asthma, being managed by Dr Neely/[facility] as well.
She was recently on a prednisone taper after Jul 2019 for admission.� She does feel better with oral steroid dosing.
Recent spirometry as outpatient demonstrating poor effort/cough throughout, but FEV1 1.63L 73%
-
From the pulmonary perspective: Will try to minimize IV corticosteroids.
With EGD findings: Esophageal candidiasis we will try to wean off as soon as possible.
Also has history of hypogammaglobinemia and also RODRIGUEZ in the lung.
-
Continue nebulizers
Singulair continues
Mucolytic's
Antitussives
Daliresp continues
Continue fluticasone/serevent bid, patient can take her own
Continue levalbuterol HFA/nebs prn
-
Last time in Dr Neely office 05/2023 - [place] ( Biologic therapy was started per [facility]) currently on hold.
-
Suspect patient has acute on chronic SOB due to recent episodes of strep PNA followed by COVID with deconditioning and CHF
CXR 08/19/23 showing L basilar atelectasis but not significantly changed from prior, never had chest CT.
Repeat PFT showing decline but still within moderate range
6MWT pending: patient declined on 08-19
Other imaging reviewed, CT Chest obtained showing LLL consolidation, there is small pericardial effusion (trivial on TTE 08-20-23)
Patient is status post bronch with BAL on 08/22/23 -growing AFB, suspected to be RODRIGUEZ.� Follow-up sensitivities.� Follow-up fungus and bacterial culture. No lung biopsies.
ID recommended outpx follow up to address RODRIGUEZ.
-
ECHO results in past reviewed--stable function
Patient's repeat ECHO on 08/20/2023 shows normal biventricular function.
Diuretics per primary team.
-
Hematology following as well.
-
GI bleed-felt to be secondary to rectal fissure and necrotic hemorrhoid
s/p EGD/colonoscopy
Gi has signed off.
Colorectal surgery following.
-
DVT prophylaxis-mechanical
GI prophylaxis-pantoprazole.
Nutrition per GI.
Early mobilization
Patient should follow up with Dr Neely in 3-4 wks
Will follow

Diagnostic Data
CXR 08/19/23- LLL atelectasis
CXR 07/10/23- IMPRESSION: There is consolidation in the left lower lobe consistent with improving pneumonia along with a left pleural effusion. There is probable atelectasis in the right lower lobe.
CXR 07-05-23: Progressed findings suggesting mild left lower lobe pneumonia; New moderate right lower lobe probable atelectasis; Mild cardiomegaly. Stable
CXR 07-03-23 c/w November 15 and 23. Baseline films with improved LLL infiltrate but persistently blurred L diaphragm. Current films without gross infiltrates but suspicious for positive spine sign at L base
CT Chest 08/20/23: Left base consolidation and/or atelectasis, small amount of right base atelectasis with shift of the mediastinum toward the left. No discrete mediastinal or hilar mass identified however repeat imaging with IV contrast after
treatment is recommended to exclude an occult process. Small bibasilar pleural effusions. Small to moderate amount of pericardial effusion.
Spirometry 08/20/22: FEV1 1.21L 54%, FVC 1.46L 49%, ratio 83. Post FEV1 1.27L 57% no BD response. (mixed pattern, moderately reduced, decreased from prior testing but remains in moderate category)
PFT:
Spirometry 05/23/2023: FEV1/FVC 82%, FEV1 1.63 L-73%, FVC 1.97 L, 66%.� No airflow obstruction.� Patient has difficulty with the maneuvers due to coughing.
Crow 12/17/22: unable.
6 MWT:
6MWT 12/17/22: At rest, O2 99% on room air, heart rate 82. With ambulation, O2 remained at 99 to 100% on room air, max heart rate 90. 5/10 on dyspnea scale. Only able to ambulate 150 feet
ECHO 07/08/23- �LV ejection fraction is 60-65%, by visual assessment. No regional wall motion�abnormalities are seen.�Normal right ventricular size and function.�No significant valvular disease.�No prior study available for comparison.
Subjective Data
-
Date of Service:
Date of Service: September 02, 2023
Chief Complaint: Pulmonary Follow Up and Dyspnea Follow Up
Subjective:
Continue to report coughing, no significant phlegm production.
Denies shortness of breath at rest
Denies hemoptysis.
Review of Systems
General: Fever (n)
Cardiopulmonary: Dyspnea (none at rest), Dyspnea on Exertion, Cough, Sputum Production (n), Wheezing and Chest Pain (n)
Objective Data
Data Reviewed
Vital Signs / I&O / Oxygen:
Vital Signs
Temp Pulse Resp BP Pulse Ox
98.3 F 106 18 118/51 96
09/02/23 11:13 09/02/23 14:18 09/02/23 14:18 09/02/23 11:13 09/02/23 14:18
Intake and Output
09/01/23 09/02/23 09/03/23
06:59 06:59 06:59
Intake Total 480 / 480 820 / 820
Output Total 2750 / 2750
Balance 480 / 480 -1930 / -1930
SaO2 96
Nasal Cannula flow liters per 3
minute
Physical Exam
General: Comfortable and Other (Mild kyphoscoliosis)
HEENT: Normocephalic, Anicteric and Moist Mucous Membranes
Cardiovascular: S1-S2, Regular Rhythm, Murmur (n), Peripheral Edema (tr) and Other (Mild drainage, lower extremities)
Respiratory: Wheeze (Mild, worse with cough spasms), Crackles (Few at left base), Rhonchi (negative), Non-Labored Respirations and Stridor (negative)
GI: Soft, Non Distended, Non Tender and Normal Bowel Sounds
Neurology: Awake, Alert and No Motor Deficits
Skin: Good Color, Cyanosis (n) and Jaundice (n)
Labs/Micro/Reports
Lab Data
09/02/23 08:04
09/02/23 08:04
Microbiology
08/22/23 13:56 Bronch Left Lower Lobe Fungus Mold Identification - Final
Clavispora lusitaniae
08/22/23 09:56 Bronch Left Upper Lobe Acid Fast Bacilli Smear - Preliminary
08/22/23 09:56 Bronch Left Upper Lobe Acid Fast Bacilli Culture - Preliminary
Acid fast bacilli
08/22/23 09:56 Bronch Left Upper Lobe Fungal Culture - Preliminary
Culture in progress.
Positive cultures are reported as soon as detected.
Final report to follow in four to five weeks.
08/22/23 09:56 Bronch Left Lower Lobe Fungal Culture - Preliminary
Yeast
[2023-09-02] MEDS: VITAMIN D3 (cholecalciferol) 25 MCG PO (16:10)
[2023-09-02] MEDS: VITAMIN C 500 MG PO (16:14)
--- NOTE | 2023-09-02 17:26 | W.PN.UPDATE ---
Update Note
Progress Note Update
I was asked to see her after she developed more rectal bleeding. It seems to have stopped and on exam there are a few small clots, large external hemorrhoids and ANNA is limited due to pain. VSS. The source of the bleeding is most likely the rectal
ulcer but possibly in combination with her hemorrhoids. I reviewed the current findings and treatment options with the patient and her daughter, and the plan is to repeat an H/H tonight and give 1 gram of tranexamic acid. Her daughter is an OR
nurse and is very familiar with it and is in agreement with using it. Will also begin sitz baths and follow-up the pathology. Further treatment, including another possible EUA, will be dependent upon her clinical course.
[2023-09-02] MEDS: ProAmatine 10 MG PO (17:46)
[2023-09-02 17:59] LABS: Hemoglobin 9.8 g/dL (12.0-16.0)
--- NOTE | 2023-09-02 19:03 | W.PN.HOSP.TC ---
Today's Communication/Plan
-
Please see below
Assessment / Plan
Assessment / Plan
Physical Exam
General: Not in acute distress
HEENT: Normocephalic, Atraumatic
Respiratory: Scattered wheezes and some crackles
Cardiac: Regular Rhythm and S1/S2
GI: Soft, Nontender and Nondistended. Positive bowel sounds.
Musculoskeletal: No Cyanosis and No Edema.

CT Head (as per radiologist's report) without IV contrast appreciated No acute intracranial abnormality
CT Chest W/o Iv Contrast (as per radiologist's report) appreciated Left base consolidation and/or atelectasis, small amount of right base atelectasis with shift of the mediastinum toward the left. Limited exam without IV contrast. No discrete
mediastinal or hilar mass identified however repeat imaging with IV contrast after treatment was recommended to exclude an occult process. Small bibasilar pleural effusions. Small to moderate amount of pericardial effusion
ECHO (as per heat and frost insulator helper's report) appreciated
Normal biventricular size and systolic function without regional wall motion
abnormality.
No significant valvular disease.
No prior study available for comparison
Assessment/Plan
72 y/o female with complicated history including, but not limited to pAfib COPD Asthma Hypothyroidism Monoclonal B-cell Lymphocytosis Hypogammaglobulinemia intolerant to IgG infusion Arthritis p/w weakness confusion encephalopathy COPD exacerbation
PNA Hyponatremia Acute Kidney Injury persistent orthostatic hypotension. Since improved, hospitalization prolonged due to progressive anemia unclear source. Pending EGD rectal exam under anesthesia.
Symptomatic Hypovolemic Hyponatremia related to over-diuresis. Was feeling weak, unable to walk and confused
- Metolazone discontinued
- Lasix reduced to 40 mg daily, continued for Lower ext swelling weeping likely chronic lymphedema (outpatient lymphedema clinic recommended)
- Celebrex initially held, was previously resumed as below, and placed on hold with worsening anemia and persistent rectal bleeding last dose 08/29 in AM
- IVF completed
- Na improved 130s
Osteoarthritis
-Sees screener and blender operator Dr. Colón outpatient at [place], being worked up for inflammatory arthritis
-Consulted rheumatology, recommendations appreciated
Acute Confusion/Encephalopathy - Resolved
Generalized Weakness Below Baseline
Left Lower Lobe Consolidation on CT Imaging
Left Lower Lobe Atelectasis
Suspected COPD Exacerbation
Cough, Rhonchi
AFB smears positive
-UA (urine culture with no growth), Influenza (negative), COVID (negative), Ammonia (low), Coagulation Studies (okay), Serum osmoles (okay), Blood cultures (no growth to date), TSH (low but T4 wnl - outpatient follow up), Vitamin B12 (non-deficient)
-Cortisol (in the morning) was low at 1.3 -- likely suppression d/t steroids
-CT Head unremarkable
-Thiamine 100 mg PO daily
-Follow-up outpatient as per Infectious Disease in latest by mid-October 2023, for positive AFB smears
Small bibasilar pleural effusions
Small to moderate amount of pericardial effusion
-Cardiology consult appreciated
-Echocardiogram ordered, results are above
-On echo, pericardial effusion is trivial
Orthostatic Hypotension
Dizziness/Lightheadedness on Standing
-patient not tolerating abd binder, has been using knee high TEDs only
-cardio consult appreciated, midodrine increased to 10 mg TID, cardizem and lasix discontinued (lasix later resumed reduced dose for lymphedema as above), LE compression NEO bandages applied
Bright red blood through vagina and rectal areas
Bright Red Blood Per Rectum on 08/21/23
-Monitor Hgb transfuse goal Hgb>7, pretreat with tylenol and benadryl given hx transfusion rxn hives, use washed red cells given hx hypogammaglobulinemia
-outpatient OBGYN follow up
GI eval appreciated Colonoscopy performed 08/27
� � � � � � � � � � � '- Non-bleeding internal and external hemorrhoids.
�� � � � � � � � � � � - Diverticulosis in the entire examined colon.
�� � � � � � � � � � � - The examination was otherwise normal.
�� � � � � � � � � � � - One 4 mm polyp in the descending colon, removed with
�� � � � � � � � � � � a jumbo cold forceps. Resected and retrieved.
�� � � � � � � � � � � - One 8 mm polyp in the ascending colon, removed with
�� � � � � � � � � � � a hot snare. Resected and retrieved.'
GI eval appreciated upper endoscopy performed 09/01
'Patient had 2 small angioectasias in the small bowel
which can contribute to bleeding.
- Esophageal plaques were found, consistent with
candidiasis.
- 3 cm hiatal hernia.
- Normal stomach.
- Two angioectasias in the duodenum. Treated with
argon plasma coagulation (APC). Clip was placed over
the one in the 2nd portion.
- No specimens collected.
Continue fluconazole x 14 days to treat the esophageal candidiasis above.
Bleeding and anemia persisted worsened
Proton pump inhibitor PO daily while inpatient, then ok for as needed.
CTA abd pelvis appreciated no active bleeding
flex sig performed 08/29 anal fissure and hemorrhoids noted
CRS eval: on 09/01/23 rectal exam performed under anesthesia, biopsy of anal ulcer, fulguration of anal ulcer -- follow-up on biopsy
Patient planned for EGD Friday 09/01 and rectal exam under anesthesia with GI and CRS
Normocytic Anemia
Anemia of Chronic Disease
Patient reported remote history adverse rxn blood transfusion hives all over
Monoclonal B cell lymphocytosis
Immunosuppressed with undetectable IgG and IgA levels
-Iron Studies appreciated AOCD with Iron level wnl
-Vit B12 non-deficient
-Hematology Eval Appreciated
-September 01, 2023: today, patient preferred to have transfusion done (prior to EUA above) when we can give premeds and observe closely. Okay for leukoreduced and irradiated PRBCs today: Tylenol 650 mg PO, Benadryl 50 mg IV, Pepcid 20 mg IV,
Solucortef 100 mg IV (in addition to the steroids she is already getting). Give irradiated due to profound immunosuppression; washed PRBC's would be ideal to give but these need to come from [place] and would not be available for at least a day or
two.
History of hypogammaglobulinemia Suspected to be related to underlying lymphoproliferative disorder.
Intolerant to IVIg transfusions in the past.
Low threshold for abx initiation if new fevers or infectious symptoms
confirmed IgA IgG IgM deficient 08/26
Hypokalemia resolved at this time
-monitor and replete as necessary
Chronic dean catheter, requires Flomax
Recent Urethral Bleeding from a Urinary Catheter
Uretheral Prolapse
Bladder Spasms
Reported urinary clots
-Urology consult appreciated, cont outpt follow up with her urologist at [facility]
-Suspected atrophic vaginitis, Estrace cream started, vaginal bleeding since resolved, outpt obgyn follow up
Severe COPD
Prior history of severe persistent asthma
Chronic Hypoxic Respiratory Failure
Acute on chronic SOB due to recent episodes of strep PNA followed by COVID with deconditioning and CHF
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
Left Lower Lobe PNA , suspected RODRIGUEZ coinfection likely present on admission
-Recent admissions for Strep pneumonia and COVID
-Patient alternates 6 weeks coarse of doxycycline and Ceftin - Currently on doxycycline
-Currently on Dexamethasone IV - dose being decreased by pulm. Later, can continue prednisone as prior to admission, currently tapering down 10mg every 5 days to baseline 5mg
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
-tapered from 30 mg to 20 mg starting 08/24 converted to IV decadron as per pulm 08/29 due to significant wheezing
-Continue Daliresp
-Continue fluticasone and salmeterol
-Continue levalbuterol prn
-Pulm eval appreciated
-Bronchoscopy performed on 08/22/23: follow bronchoalveolar lavage and cultures results acid fast bacilli positive pending speciation, PCR for TB however neg
-Infectious Disease consulted appreciated, Cefepime converted to cefdinir, no need for isolation/quarantine at this time. Cefdinir completed 08/29
Paroxysmal Atrial Fibrillation s/p Ablation
-Patient is not on anticoagulation as outpatient
-Continue diltiazem discontinued as above
Sacrum Healing Stage 3 pressure injury, POA
-Continue wound care
Anxiety/Depression
Continue Duloxetine and alprazolam
Hypothyroidism
-Continue levothyroxine
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
-Continue gabapentin and duloxetine
-Gabapentin at max dose 1800 mg at 3 divided doses for her Cr clearance, transition to pregabalin offered patient however declines at this time
Arthritis
-home celecoxib resumed 08/25, discontinued 08/29 d/t worsening anemia persistent rectal bleed,
-celecoxib subsequently substituted with tramadol prn ordered, appears to be tolerating well at this time however symptoms ('locking joints') remain uncontrolled
-consulted Rheumatology
Environment/Seasonal Allergies
-Continue fexofenadine and montelukast
History of Steroid-Induced Myopathy
PT/OT appreciated HH
DVT proph: (Previously Lovenox discontinued due to Bleeding as above) TERRI stockings, SCDs
GI ppx: protonix
Code Status: DNR/DNI
Anticipated Discharge: > 48 hours
Subjective/Interval History
-
Date of Service: September 02, 2023
Patient was seen and examined. She reported that her joints felt more stiff and that she sees a screener and blender operator outpatient.
Objective Data
-
Labs:
Laboratory Results
09/02/23 09/02/23
08:04 17:51
WBC 14.5 H
Hgb 10.1 L D 9.8 L
Hct 30.1 L
Plt Count 255
Sodium 134 L
Potassium 4.1
Chloride 102
Carbon Dioxide 29
BUN 16
Creatinine 0.6
Glucose 147 H
Calcium 8.3 L
Vital Signs:
Vital Signs
Temp Pulse Resp BP Pulse Ox
99.1 F 94 16 127/74 96
09/02/23 15:32 09/02/23 15:32 09/02/23 15:32 09/02/23 15:32 09/02/23 15:32
I&O
09/01/23 09/02/23 09/03/23
06:59 06:59 06:59
Intake Total 480 / 480 820 / 820 1260 / 1260
Output Total 2750 / 2750 1775 / 1775
Balance 480 / 480 -1930 / -1930 -515 / -515
[2023-09-02] MEDS: TRANEXAMIC ACID 110 MG IV (19:52)
[2023-09-02 20:53] LABS: SSA 52 (Ro)(ENA) Ab, IgG 0 AU/mL (0-40); SSA 60 (Ro)(ENA) Ab, IgG 0 AU/mL (0-40); SSB (La)(ENA) Ab, IgG 1 AU/mL (0-40)
[2023-09-02] MEDS: CYMBALTA DELAYED RELEASE 60 MG PO (22:02)
[2023-09-02] MEDS: SINGULAIR 10 MG PO (22:02)
[2023-09-02] MEDS: DALIRESP 500 MCG PO (22:02)
[2023-09-02] MEDS: DECADRON 2 MG IV (22:06)
[2023-09-02] MEDS: ESTRACE 0.01% VAGINAL CREAM VAG (22:11)
[2023-09-02] MEDS: TYLENOL 650 MG PO (22:40)
[2023-09-02] MEDS: XANAX 0.5 MG PO (23:56)
[2023-09-03] VITALS (12 sets, daily range): BP systolic 95–165; BP diastolic 67–94; PULSE 100–108
[2023-09-03] MEDS: XOPENEX 0.63 MG INHALANT SOLUTION 0.630000000000000004 MG INH ×4 (00:10→20:31)
[2023-09-03] MEDS: MIRALAX 17 GRAMS PO (06:01)
[2023-09-03] MEDS: ULTRAM 25 MG PO ×3 (06:05→23:05)
[2023-09-03] MEDS: TESSALON PERLES 100 MG PO ×2 (06:06→23:03)
[2023-09-03] MEDS: SYNTHROID 112 MCG PO (06:09)
[2023-09-03] MEDS: NEURONTIN 600 MG PO ×2 (06:26→21:14)
[2023-09-03] MEDS: NON-FORMULARY ITEM 1 UNIT INH ×2 (08:33→21:18)
[2023-09-03] MEDS: NON-FORMULARY ITEM 2 INH INH ×2 (08:34→21:17)
[2023-09-03] MEDS: CYMBALTA DELAYED RELEASE 30 MG PO (09:01)
[2023-09-03] MEDS: VITAMIN B1 100 MG PO (09:01)
[2023-09-03] MEDS: PROTONIX 40 MG PO (09:01)
[2023-09-03] MEDS: FLOMAX 0.800000000000000044 MG PO (09:01)
[2023-09-03] MEDS: KCL 20 MEQ PO (09:01)
[2023-09-03] MEDS: DIFLUCAN 200 MG PO (09:01)
[2023-09-03] MEDS: VITAMIN B-12 500 MCG PO (09:02)
[2023-09-03] MEDS: Pyridium 100 MG PO ×2 (09:02→21:11)
[2023-09-03] MEDS: DECADRON 2 MG IV ×2 (09:03→21:16)
[2023-09-03] MEDS: OSCAL 500 + D 500 MG PO ×2 (09:03→21:12)
[2023-09-03] MEDS: METAMUCIL, KONSYL PO (09:07)
[2023-09-03] MEDS: NON-FORMULARY ITEM 1 SPRAY NASAL (09:08)
[2023-09-03] MEDS: NON-FORMULARY ITEM 1 UNIT PO (09:08)
[2023-09-03] MEDS: HYDROCORTISONE 2.5% CREAM TOPICAL ×2 (09:10→21:46)
[2023-09-03] MEDS: LASIX 40 MG PO (09:13)
[2023-09-03] MEDS: ProAmatine 10 MG PO (09:13)
[2023-09-03] MEDS: TYLENOL 650 MG PO (09:17)
[2023-09-03 09:48] LABS: Hematocrit 29.2 % (37.0-47.0); Hemoglobin 10.1 g/dL (12.0-16.0); Mean Corp Hgb Conc. 34.6 g/dL (33.0-37.0); Mean Corpuscular Hgb 33.2 pg (27.0-31.0); Mean Corpuscular Volume 96.1 fL (81.0-99.0); Mean Platelet Volume 9.1 fL (7.4-10.4); Platelet Count 228 10^3/uL (130-400); Red Blood Cell Count 3.04 10^6/uL (4.20-5.40); Red Cell Dist. Width 16.4 % (11.5-14.5); White Blood Cell Count 14.1 10^3/uL (4.8-10.8)
[2023-09-03] MEDS: NON-FORMULARY ITEM NASAL (10:01)
[2023-09-03 10:02] LABS: ALT (SGPT) 20 U/L (0-35); AST (SGOT) 21 U/L (14-36); Albumin 3.1 g/dl (3.5-5.0); Alkaline Phosphatase 39 U/L (38-126); Blood Urea Nitrogen 14 mg/dl (7-17); Calcium 8.3 mg/dl (8.4-10.2); Carbon Dioxide 31 mmol/L (22-30); Chloride 105 mmol/L (98-107); Direct Bilirubin 0.4 mg/dl (0.0-0.4); Estimated Creatinine Clearance 74 ml/min; Glucose 119 mg/dl (70-99); Magnesium 2.6 mg/dl (1.6-2.3); Phosphorus 2.6 mg/dl (2.5-4.5); Potassium 3.9 mmol/L (3.5-5.1); Sodium 134 mmol/L (135-145); eGFR > 60.00
--- NOTE | 2023-09-03 10:45 | W.PN.HOSP.TC ---
Today's Communication/Plan
-
Spoke with photographer motion picture Dr. Hayward over the phone and he recommended scheduled Tylenol 3000 mg total every day, he will update Dr. Colón, if this controls pain then they said hopefully no need for inpatient consult but close follow-up
outpatient
Continue steroids, monitor Hgb
Assessment / Plan
Assessment / Plan
Physical Exam
General: Not in acute distress
HEENT: Normocephalic, Atraumatic
Respiratory: Scattered wheezes and some crackles
Cardiac: Regular Rhythm and S1/S2
GI: Soft, Nontender and Nondistended. Positive bowel sounds.
Musculoskeletal: No Cyanosis and No Edema.

CT Head (as per radiologist's report) without IV contrast appreciated No acute intracranial abnormality
CT Chest W/o Iv Contrast (as per radiologist's report) appreciated Left base consolidation and/or atelectasis, small amount of right base atelectasis with shift of the mediastinum toward the left. Limited exam without IV contrast. No discrete
mediastinal or hilar mass identified however repeat imaging with IV contrast after treatment was recommended to exclude an occult process. Small bibasilar pleural effusions. Small to moderate amount of pericardial effusion
ECHO (as per modern and contemporary art curator's report) appreciated
Normal biventricular size and systolic function without regional wall motion
abnormality.
No significant valvular disease.
No prior study available for comparison
Assessment/Plan
72 y/o female with complicated history including, but not limited to pAfib COPD Asthma Hypothyroidism Monoclonal B-cell Lymphocytosis Hypogammaglobulinemia intolerant to IgG infusion Arthritis p/w weakness confusion encephalopathy COPD exacerbation
PNA Hyponatremia Acute Kidney Injury persistent orthostatic hypotension. Since improved, hospitalization prolonged due to progressive anemia unclear source. Pending EGD rectal exam under anesthesia.
Symptomatic Hypovolemic Hyponatremia related to over-diuresis. Was feeling weak, unable to walk and confused
- Metolazone discontinued
- Lasix reduced to 40 mg daily, continued for Lower ext swelling weeping likely chronic lymphedema (outpatient lymphedema clinic recommended)
- Celebrex initially held, was previously resumed as below, and placed on hold with worsening anemia and persistent rectal bleeding last dose 08/29 in AM
- IVF completed
- Na improved 130s
Osteoarthritis
-Sees photographer motion picture Dr. Colón outpatient at [facility], being worked up for inflammatory arthritis
-Consulted rheumatology, recommendations appreciated
-Spoke with Dr. Robert Hayward (photographer motion picture) over the phone on 09/03/23 -- discussed case with him -- he recommended 3000 mg Tylenol total daily dose to be given every day for now and then if the pain doesn't improve, then call rheumatology
again
-Dr. Hayward mentioned he will update patient's photographer motion picture Dr. Colón
Acute Confusion/Encephalopathy - Resolved
Generalized Weakness Below Baseline
Left Lower Lobe Consolidation on CT Imaging
Left Lower Lobe Atelectasis
Suspected COPD Exacerbation
Cough, Rhonchi
AFB smears positive
-UA (urine culture with no growth), Influenza (negative), COVID (negative), Ammonia (low), Coagulation Studies (okay), Serum osmoles (okay), Blood cultures (no growth to date), TSH (low but T4 wnl - outpatient follow up), Vitamin B12 (non-deficient)
-Cortisol (in the morning) was low at 1.3 -- likely suppression d/t steroids
-CT Head unremarkable
-Thiamine 100 mg PO daily
-Follow-up outpatient as per Infectious Disease in latest by mid-October 2023, for positive AFB smears
Small bibasilar pleural effusions
Small to moderate amount of pericardial effusion
-Cardiology consult appreciated
-Echocardiogram ordered, results are above
-On echo, pericardial effusion is trivial
Orthostatic Hypotension
Dizziness/Lightheadedness on Standing
-patient not tolerating abd binder, has been using knee high TEDs only
-cardio consult appreciated, midodrine increased to 10 mg TID, cardizem and lasix discontinued (lasix later resumed reduced dose for lymphedema as above), LE compression NEO bandages applied
Bright red blood through vagina and rectal areas
Bright Red Blood Per Rectum on 08/21/23
-Monitor Hgb transfuse goal Hgb>7, pretreat with tylenol and benadryl given hx transfusion rxn hives, use washed red cells given hx hypogammaglobulinemia
-outpatient OBGYN follow up
GI eval appreciated Colonoscopy performed 08/27
� � � � � � � � � � � '- Non-bleeding internal and external hemorrhoids.
�� � � � � � � � � � � - Diverticulosis in the entire examined colon.
�� � � � � � � � � � � - The examination was otherwise normal.
�� � � � � � � � � � � - One 4 mm polyp in the descending colon, removed with
�� � � � � � � � � � � a jumbo cold forceps. Resected and retrieved.
�� � � � � � � � � � � - One 8 mm polyp in the ascending colon, removed with
�� � � � � � � � � � � a hot snare. Resected and retrieved.'
GI eval appreciated upper endoscopy performed 09/01
'Patient had 2 small angioectasias in the small bowel
which can contribute to bleeding.
- Esophageal plaques were found, consistent with
candidiasis.
- 3 cm hiatal hernia.
- Normal stomach.
- Two angioectasias in the duodenum. Treated with
argon plasma coagulation (APC). Clip was placed over
the one in the 2nd portion.
- No specimens collected.
Continue fluconazole x 14 days to treat the esophageal candidiasis above.
Bleeding and anemia persisted worsened
Proton pump inhibitor PO daily while inpatient, then ok for as needed.
CTA abd pelvis appreciated no active bleeding
flex sig performed 08/29 anal fissure and hemorrhoids noted
CRS eval: on 09/01/23 rectal exam performed under anesthesia, biopsy of anal ulcer, fulguration of anal ulcer -- follow-up on biopsy
Patient planned for EGD Friday 09/01 and rectal exam under anesthesia with GI and CRS
Normocytic Anemia
Anemia of Chronic Disease
Patient reported remote history adverse rxn blood transfusion hives all over
Monoclonal B cell lymphocytosis
Immunosuppressed with undetectable IgG and IgA levels
-Iron Studies appreciated AOCD with Iron level wnl
-Vit B12 non-deficient
-Hematology Eval Appreciated
-September 01, 2023: on this date, patient preferred to have transfusion done (prior to EUA above) when we can give premeds and observe closely. Okay for leukoreduced and irradiated PRBCs today: Tylenol 650 mg PO, Benadryl 50 mg IV, Pepcid 20 mg IV,
Solucortef 100 mg IV (in addition to the steroids she is already getting). Give irradiated due to profound immunosuppression; washed PRBC's would be ideal to give but these need to come from [place] and would not be available for at least a day or
two.
History of hypogammaglobulinemia Suspected to be related to underlying lymphoproliferative disorder.
Intolerant to IVIg transfusions in the past.
Low threshold for abx initiation if new fevers or infectious symptoms
confirmed IgA IgG IgM deficient 08/26
Hypokalemia resolved at this time
-monitor and replete as necessary
Chronic dean catheter, requires Flomax
Recent Urethral Bleeding from a Urinary Catheter
Uretheral Prolapse
Bladder Spasms
Reported urinary clots
-Urology consult appreciated, cont outpt follow up with her urologist at [facility]
-Suspected atrophic vaginitis, Estrace cream started, vaginal bleeding since resolved, outpt obgyn follow up
Severe COPD
Prior history of severe persistent asthma
Chronic Hypoxic Respiratory Failure
Acute on chronic SOB due to recent episodes of strep PNA followed by COVID with deconditioning and CHF
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
Left Lower Lobe PNA , suspected RODRIGUEZ coinfection likely present on admission
-Recent admissions for Strep pneumonia and COVID
-Patient alternates 6 weeks coarse of doxycycline and Ceftin - Currently on doxycycline
-Currently on Dexamethasone IV - dose being decreased by pulm. Later, can continue prednisone as prior to admission, currently tapering down 10mg every 5 days to baseline 5mg
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
-tapered from 30 mg to 20 mg starting 08/24 converted to IV decadron as per pulm 08/29 due to significant wheezing
-Continue Daliresp
-Continue fluticasone and salmeterol
-Continue levalbuterol prn
-Pulm eval appreciated
-Bronchoscopy performed on 08/22/23: follow bronchoalveolar lavage and cultures results acid fast bacilli positive pending speciation, PCR for TB however neg
-Infectious Disease consulted appreciated, Cefepime converted to cefdinir, no need for isolation/quarantine at this time. Cefdinir completed 08/29
Paroxysmal Atrial Fibrillation s/p Ablation
-Patient is not on anticoagulation as outpatient
-Continue diltiazem discontinued as above
Sacrum Healing Stage 3 pressure injury, POA
-Continue wound care
Anxiety/Depression
-Continue Duloxetine and alprazolam
Hypothyroidism
-Continue levothyroxine
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
-Continue gabapentin and duloxetine
-Gabapentin at max dose 1800 mg at 3 divided doses for her Cr clearance, transition to pregabalin offered patient however declines at this time
Arthritis
-home celecoxib resumed 08/25, discontinued 08/29 d/t worsening anemia persistent rectal bleed,
-celecoxib subsequently substituted with tramadol prn ordered, appears to be tolerating well at this time however symptoms ('locking joints') remain uncontrolled
-consulted Rheumatology -- spoke with rheumatology over the phone on 09/03/23 AM -- see above
Environment/Seasonal Allergies
-Continue fexofenadine and montelukast
History of Steroid-Induced Myopathy
PT/OT appreciated HH
DVT proph: (Previously Lovenox discontinued due to Bleeding as above) TERRI stockings, SCDs
GI ppx: protonix
Code Status: DNR/DNI
Anticipated Discharge: > 48 hours
Subjective/Interval History
-
Date of Service: September 03, 2023
Patient was seen and examined. She reported she is still bleeding per rectum. She still has joint pains in her upper extremity from arthritis.
Objective Data
-
Labs:
Laboratory Results
09/03/23
09:18
WBC 14.1 H
Hgb 10.1 L
Hct 29.2 L
Plt Count 228
Sodium 134 L
Potassium 3.9
Chloride 105
Carbon Dioxide 31 H
BUN 14
Creatinine 0.5 L
Glucose 119 H
Calcium 8.3 L
Total Bilirubin 1.0
AST 21
ALT 20
Alkaline Phosphatase 39
Vital Signs:
Vital Signs
Temp Pulse Resp BP Pulse Ox
98.6 F 107 18 95/67 96
09/03/23 07:55 09/03/23 09:13 09/03/23 07:55 09/03/23 09:13 09/03/23 07:55
I&O
09/02/23 09/03/23 09/04/23
06:59 06:59 06:59
Intake Total 820 / 820 1500 / 1500
Output Total 2750 / 2750 1775 / 1775
Balance -1930 / -1930 -275 / -275
--- NOTE | 2023-09-03 11:05 | W.PN.CD ---
Addendum entered and electronically signed by Eduard High MD 09/03/23 12:25:
I saw and examined the patient.
The DRIVE TESTER's note was reviewed and I agree with the note.
Comment: No new recommendations at this time, follow up as an outpt.
Original Note:
Today's Communication / Plan
-
EKG reviewed and stable. No change to current plan.
Impression / Plan
-
Impression: 72F with SVT (PAF, atrial flutter, and AT have been identified) admitted with hyponatremia. Also with PNA, anemia, orthostatic hypotension, LESLY. We are re-consulted due to concern for abnormal EKG.
Plan:
Orthostatic hypotension:
-multifactorial- deconditioning, low albumin, diuretic use when she isn't volume overloaded
-symptoms seemed to start with diltiazem, which has been stopped here
-continue midodrine, adjust as appropriate
-encouraged exercise/ambulation
-Echo Aug 2023 - normal
Rectal bleeding:
-colorectal following and on 09/01, she had an exam under anesthesia with biopsy of anal ulcer, fulguration of anal ulcer
Volume overload: Stable
-back on Lasix (at lower dosing) since she had LE edema (now resolved)
Arrhythmia:
-h/o PAF with ablation 2017 HUP (not on AC), PAT with ?flutter last admission, but not AFIB.
-sinus by EKG today and by physical assessment now
-stable off diltiazem
-there was plan for 2 week monitor as OP, but was not done. Will arrange for about 2 months, then f/u with Dr. Cedeño 3 months.
-consider OAC as OP with Dr. Cedeño
Abnormal EKG:
-EKG reviewed and stable
COPD, PNA:
-on O2
-management per primary team
-still with coughing
Subjective:
Very tired. Still with cough.
Physical Exam
Vital Signs/Labs
Vital Signs
Temp Pulse Resp BP Pulse Ox
98.6 F 107 18 95/67 97
09/03/23 07:55 09/03/23 09:13 09/03/23 08:30 09/03/23 09:13 09/03/23 08:30
09/02/23 09/03/23 09/04/23
06:59 06:59 06:59
Actual Weight 56.971 kg
09/03/23 09:18
09/03/23 09:18
PT 12.6 Sec (11.4-14.6) 08/19/23 13:02
INR 0.96 08/19/23 13:02
APTT 22.9 Sec (23.4-35.0) L 08/19/23 13:02
Magnesium 2.6 mg/dl (1.6-2.3) H 09/03/23 09:18
Free T4 1.19 ng/dl (0.78-2.19) 08/19/23 13:02
08/28/23
07:05
Kks-B-Gahkcsojteu Pept 263
Physical Exam
Constitutional: No acute distress
EENT: Anicteric
Cardiovascular: Rhythm & rate is regular
Respiratory: Other (on O2 by NC, coarse lung sounds, has cough)
Neuro/Psych: AO x 3
Data Reviewed
-
Date of Service: September 03, 2023
EKG: Tracing Personally Visualized and interpreted (SR with SA, stable)
--- NOTE | 2023-09-03 11:42 | W.PN.CRS1 ---
Today's Communication / Plan
-
Exam under anesthesia this evening
N.p.o. at 11 AM
Assessment/Plan
-
POD#2 Exam under anesthesia, biopsy of anal ulcer, fulguration of anal ulcer
1. She received 1 g transmitted tranexamic acid last night but she is still bleeding.
2. Hemoglobin 10.1 from 9.2. Vitals normal.
3. Given rectal bleeding we will plan for another exam under anesthesia today in the evening. N.p.o. at 11 AM. Discussed with patient.
4. I called pathology for pathology but it is not back as of this morning.
5. Calmol suppositories PRN. Metamucill daily.
Subjective Data
Procedure
09/01- Exam under anesthesia, biopsy of anal ulcer, fulguration of anal ulcer
Subjective Data
Date of Service: September 03, 2023
The patient states she had bleeding overnight. She describes her mood as 'bad'. She had multiple clots in the toilet. She states her rectum hurts.
Objective Data
-
Vital Signs
Temp Pulse Resp BP Pulse Ox
98.6 F 107 18 95/67 97
09/03/23 07:55 09/03/23 09:13 09/03/23 08:30 09/03/23 09:13 09/03/23 08:30
Intake & Output
09/02/23 09/03/23 09/04/23
06:59 06:59 06:59
Intake Total 820 / 820 1500 / 1500
Output Total 2750 / 2750 1774
Balance -1930 / -1930 -275 / -275
Intake:
Oral fluids 720 / 720 1500 / 1500
IV fluids (Total) 100 / 100
Normosal 100 / 100
Output:
Urine, Voided 2750 / 2750 1774
Lab Results
09/03/23 09:18
09/03/23 09:18
Physical Exam
-
General: No Acute Distress and AOx3
--- NOTE | 2023-09-03 11:50 | W.PN.ID1 ---
Date of Service
Date of Service: September 03, 2023
Today's Communication
Continue current course of Diflucan
Assessment / Plan
Left lower lobe pneumonia
Hypoxemia
Suspected exacerbation of COPD
Recovery of Mycobacterium from [facility] sample
- PCR negative for Mycobacterium tuberculosis; suspect RODRIGUEZ
Monoclonal B-cell lymphocytosis
P A-fib
Hypothyroidism
Gait dysfunction
Hx Steroid-induced myopathy
Recommendations:
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
Same organism recovered from bron. Suspect contaminant versus colonizer.
Agree with fluconazole x14 days
LFTs were normal 08/29
Repeat QTc today essentially unchanged
S/P course of cefdinir
AFB stain positive; TB PCR negative. Awaiting final speciation of recovered AFB.
Outpatient follow-up in 4 to 8 weeks with me to discuss options.
����������������������������������������������������������
Chief Complaint
-: Other (candidal esophagitis)
Subjective / Review of Systems
Review of Systems: No Fever, No Chills and Cough
Vital Signs / Physical Exam
Vital Signs
Vital Signs
Temp Pulse Resp BP Pulse Ox
98.6 F 107 18 95/67 97
09/03/23 07:55 09/03/23 09:13 09/03/23 08:30 09/03/23 09:13 09/03/23 08:30
Physical Exam
Constitutional: No Acute Distress, Comfortable, Chronically Ill and Non-toxic
Eyes: Sclera Anicteric
Pulmonary: Non Labored
Gastrointestinal: Non Distended
Neurological: Awake and Alert
Psychological: Calm
Objective Data
Lab Data
Lab Results
09/03/23 09:18
09/03/23 09:18
PT 12.6 Sec (11.4-14.6) 08/19/23 13:02
INR 0.96 08/19/23 13:02
APTT 22.9 Sec (23.4-35.0) L 08/19/23 13:02
Estimated Creat Clear 74 ml/min 09/03/23 09:18
Lactic Acid 1.9 mmol/L (0.7-2.0) 08/16/23 19:17
Total Bilirubin 1.0 mg/dl (0.2-1.3) 09/03/23 09:18
AST 21 U/L (14-36) 09/03/23 09:18
ALT 20 U/L (0-35) 09/03/23 09:18
Alkaline Phosphatase 39 U/L (38-126) 09/03/23 09:18
Most recent labs reviewed.
Micro Results:
08/22/23 13:56 Fungus Mold Identification - Final
Bronch Left Lower Lobe Clavispora lusitaniae
08/22/23 09:56 Acid Fast Bacilli Smear - Preliminary
Bronch Left Upper Lobe Acid Fast Bacilli Culture - Preliminary
Acid fast bacilli
08/22/23 09:56 Fungal Culture - Preliminary
Bronch Left Upper Lobe Culture in progress.
Positive cultures are reported as soon as detected.
Final report to follow in four to five weeks.
08/22/23 09:56 Fungal Culture - Preliminary
Bronch Left Lower Lobe Yeast
08/22/23 09:56 Acid Fast Bacilli Smear - Preliminary
Bronch Left Lower Lobe Acid Fast Bacilli Culture - Preliminary
Acid fast bacilli
Specimen Source - Final
Mycobacterium tuberculosis DNA (PCR - Final
M. tuberculosis Rifampin (PCR) - Final
M. tuberculosis Complex Interpretat - Final
08/19/23 16:02 Blood Culture - Final
Blood/Venous No Growth - Final Report
08/19/23 13:02 Blood Culture - Final
Blood/Venous No Growth - Final Report
08/22/23 09:56 Respiratory Culture - Final
Bronch Left Upper Lobe Usual Respiratory Kayla
Gram Stain - Final
08/22/23 09:56 Respiratory Culture - Final
Bronch Left Lower Lobe Usual Respiratory Kayla
Gram Stain - Final
08/21/23 11:11 Respiratory Culture - Final
Sputum Usual Respiratory Kayla
Gram Stain - Final
08/20/23 20:54 Respiratory Culture - Final
Sputum Gram Stain - Final
08/19/23 12:40 Urine Culture - Final
Urine NO GROWTH
08/19/23 12:39 Influenza Types A & B (DIEGO) - Final
Nasal Swab Negative for Influenza A & B, NAAT
Negative results must be combined with clinical observations
and patient history.
Nucleic Acid Amplification test (NAAT)performed on the
[employer] platform.
08/16/23 20:05 Urine Culture - Final
Urine NO GROWTH
[2023-09-03] MEDS: TYLENOL PO (13:40)
[2023-09-03] MEDS: ProAmatine PO ×2 (13:40→17:38)
[2023-09-03] MEDS: NEURONTIN PO (16:10)
[2023-09-03] MEDS: Pyridium PO (17:06)
[2023-09-03] MEDS: VITAMIN C PO (17:38)
--- NOTE | 2023-09-03 19:15 | W.IMMPOSTOP ---
Surgical Immed Post Op Note
-
Primary Surgeon: Francisco Lancaster MD
Assisting Surgeon: Baljinder Pina MD, and MARA Whaley Do
Pre-op Diagnosis: Rectal bleeding
Post-op Diagnosis: Same
Procedure Performed: Rectal exam under anesthesia, rigid proctosigmoidoscopy, suture of small rectal ulcer, Botox chemodenervation
Anesthesia Type: MAC
Specimen / Cultures: None
Estimated Blood Loss: 2cc
Complications: None
Operative Findings: Tiny, nonbleeding superficial ulcer 4cm above the anorectal ring in the right anterior quadrant with mucosal prolapse (sutured)
Large, denuded anoderm anteriorly with no active bleeding
Increased resting tone
Large, chronic external hemorrhoids
Patient's daughter updated.
[2023-09-03] MEDS: DALIRESP 500 MCG PO (21:11)
[2023-09-03] MEDS: SINGULAIR 10 MG PO (21:11)
[2023-09-03] MEDS: CYMBALTA DELAYED RELEASE 60 MG PO (21:11)
[2023-09-03] MEDS: TYLENOL 1000 MG PO (21:12)
[2023-09-03] MEDS: NON-FORMULARY ITEM 2 SPRAY NASAL (21:46)
[2023-09-03] MEDS: ESTRACE 0.01% VAGINAL CREAM VAG (21:46)
[2023-09-03] MEDS: XANAX 0.5 MG PO (23:04)
[2023-09-04 03:19] VITALS: BP 132/80
[2023-09-04] MEDS: TYLENOL PO (05:43)
[2023-09-04 06:00] VITALS: BMI 21.2
[2023-09-04] MEDS: MIRALAX 17 GRAMS PO (06:20)
[2023-09-04] MEDS: SYNTHROID 125 MCG PO (06:21)
[2023-09-04] MEDS: TESSALON PERLES 100 MG PO ×2 (06:21→22:26)
[2023-09-04] MEDS: NEURONTIN 600 MG PO ×3 (06:21→22:20)
[2023-09-04] MEDS: ULTRAM 25 MG PO (06:23)
[2023-09-04 06:30] VITALS: BP 125/83
--- NOTE | 2023-09-04 06:46 | W.PN.UPDATE ---
Update Note
Progress Note Update
Patient had unwitnessed fall, she mentioned that she slipped while going out of bed. Denied hitting her head. On exam, patient is alert and oriented x3. No hematoma, bruises or injuries noticed during the exam. KATHY and BLL with FROM. Will start neuo
checks and fall precautions in place.
--- NOTE | 2023-09-04 07:07 | PTCARENOTE ---
Pt found on floor @0630. Pt states she was reaching out of bed for something and slipped. Vital signs are stable and Pt does not appear to be injured
[2023-09-04 07:15] VITALS: BP 153/87
[2023-09-04] MEDS: XOPENEX 0.63 MG INHALANT SOLUTION 0.630000000000000004 MG INH ×4 (08:09→23:51)
[2023-09-04] MEDS: NON-FORMULARY ITEM 1 UNIT INH ×2 (08:11→20:04)
[2023-09-04] MEDS: NON-FORMULARY ITEM 2 INH INH ×2 (08:12→20:04)
[2023-09-04] MEDS: PROTONIX 40 MG PO (08:42)
[2023-09-04] MEDS: FLOMAX 0.800000000000000044 MG PO (08:42)
[2023-09-04] MEDS: CYMBALTA DELAYED RELEASE 30 MG PO (08:42)
[2023-09-04] MEDS: VITAMIN B-12 500 MCG PO (08:43)
[2023-09-04] MEDS: KCL 20 MEQ PO (08:43)
[2023-09-04] MEDS: Pyridium 100 MG PO ×3 (08:44→22:18)
[2023-09-04] MEDS: OSCAL 500 + D 500 MG PO ×2 (08:44→19:33)
[2023-09-04] MEDS: NON-FORMULARY ITEM 1 UNIT PO (08:44)
[2023-09-04] MEDS: METAMUCIL, KONSYL PO (08:44)
[2023-09-04] MEDS: VITAMIN B1 100 MG PO (08:44)
[2023-09-04] MEDS: LASIX 40 MG PO (08:45)
[2023-09-04] MEDS: DECADRON 2 MG IV (08:45)
[2023-09-04] MEDS: DIFLUCAN 200 MG PO (08:45)
[2023-09-04] MEDS: NON-FORMULARY ITEM 2 SPRAY NASAL ×2 (08:45→19:33)
[2023-09-04] MEDS: NON-FORMULARY ITEM 1 SPRAY NASAL (08:45)
[2023-09-04] MEDS: HYDROCORTISONE 2.5% CREAM TOPICAL ×2 (08:46→19:39)
[2023-09-04 08:50] LABS: Hematocrit 29.4 % (37.0-47.0); Hemoglobin 9.8 g/dL (12.0-16.0); Mean Corp Hgb Conc. 33.3 g/dL (33.0-37.0); Mean Platelet Volume 9.2 fL (7.4-10.4); Platelet Count 235 10^3/uL (130-400); Red Blood Cell Count 2.97 10^6/uL (4.20-5.40); Red Cell Dist. Width 16.6 % (11.5-14.5); White Blood Cell Count 13.3 10^3/uL (4.8-10.8)
[2023-09-04] MEDS: ProAmatine PO ×3 (08:50→17:53)
[2023-09-04 09:24] LABS: Blood Urea Nitrogen 17 mg/dl (7-17); Calcium 8.4 mg/dl (8.4-10.2); Carbon Dioxide 32 mmol/L (22-30); Chloride 102 mmol/L (98-107); Estimated Creatinine Clearance 74 ml/min; Glucose 121 mg/dl (70-99); Magnesium 2.8 mg/dl (1.6-2.3); Phosphorus 2.9 mg/dl (2.5-4.5); Potassium 4.3 mmol/L (3.5-5.1); Sodium 134 mmol/L (135-145); eGFR > 60.00
--- NOTE | 2023-09-04 10:50 | W.PN.CRS1 ---
Today's Communication / Plan
-
sitz baths
miralax
fiber
Assessment/Plan
-
POD#3 Exam under anesthesia, biopsy of anal ulcer, fulguration of anal ulcer, POD#1 �Rectal exam under anesthesia, rigid proctosigmoidoscopy, suture of small rectal ulcer, Botox�
1.� Hgb is stable, 9.8 from 10.1. No further bleeding since OR.
2.� Continue daily sitz baths and miralax/fiber.
3.� Bladder scan if does not void. Discussed with RN.
4.� OR pathology pending.
5. Calmol suppositories PRN. Metamucil daily.
Subjective Data
Procedure
09/01- Exam under anesthesia, biopsy of anal ulcer, fulguration of anal ulcer
09/03- �Rectal exam under anesthesia, rigid proctosigmoidoscopy, suture of small rectal ulcer, Botox�
Subjective Data
Date of Service: September 04, 2023
Patient states she does not feel like great this morning. She had a fall earlier this morning. She states she has not urinated in a while but did after surgery. She has not had a bowel movement yet.
Objective Data
-
Vital Signs
Temp Pulse Resp BP Pulse Ox
98.1 F 85 14 126/70 96
09/04/23 07:15 09/04/23 08:50 09/04/23 08:20 09/04/23 08:50 09/04/23 08:20
Intake & Output
09/03/23 09/04/23 09/05/23
06:59 06:59 06:59
Intake Total 1500 / 1500 1110 / 1110
Output Total 1775 / 1775 2200 / 2200
Balance -275 / -275 -1090 / -1090
Intake:
Oral fluids 1500 / 1500 960 / 960
IV fluids (Total) 150 / 150
Normosal 150 / 150
Output:
Urine, Voided 1775 / 1770 / 0
Lab Results
09/04/23 07:48
09/04/23 07:48
Physical Exam
-
General: No Acute Distress and AOx3
Skin: Warm
[2023-09-04] MEDS: TYLENOL 1000 MG PO ×2 (12:39→19:33)
[2023-09-04] MEDS: HYDROCORTISONE 2.5% CREAM 1 APPLIC TOPICAL (13:07)
[2023-09-04] MEDS: ULTRAM 50 MG PO ×2 (13:31→19:31)
--- NOTE | 2023-09-04 14:20 | W.PN.ONC ---
Today's Communication / Plan
-
Normocytic anemia From acute GI bleeding
no evidence of iron deficiency
Slow improvement in CBC
No evidence of hemolysis
Continue to manage infectious symptomatology with hypogammaglobulinemia
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
Centimeters distally like Mickey jacobson I mean basically close cytometry indicates that she does need to meet the criteria for CLL yet to have more than 4 forHx of hypogammaglobulinemia with IgG < 270. Suspected to be related to underlying
lymphoproliferative disorder. Intolerant to IVIg transfusions in the pas
If HB <7 then premedication with tylenol, benedryl prior to blood transfusion
Impression
Impression
Symptomatic Hypovolemic Hyponatremia related to over-diuresis.
Weakness Below Baseline
Left Lower Lobe Consolidation on CT Imaging
Left Lower Lobe Atelectasis
Small bibasilar pleural effusions
Small to moderate amount of pericardial effusion
Orthostatic Hypotension
Bright red blood through vagina and rectal areas
Bright Red Blood Per Rectum on 08/21/23
Normocytic Anemia
Paroxysmal Atrial Fibrillation s/p Ablation
Monoclonal B cell lymphocytosis ALC 3000
Steroid-Induced Myopathy
Plan
Plan
Subjective/Objective
Subjective/Objective
Patient ports continued fatigue.
Vital Signs:
Vital Signs
Temp Pulse Resp BP Pulse Ox
98.1 F 90 14 121/80 96
09/04/23 07:15 09/04/23 12:17 09/04/23 08:20 09/04/23 12:17 09/04/23 08:20
Physical exam: Unchanged
Lab Results:
Laboratory Data
WBC 13.3 10^3/uL (4.8-10.8) H 09/04/23 07:48
Hgb 9.8 g/dL (12.0-16.0) L 09/04/23 07:48
Plt Count 235 10^3/uL (130-400) 09/04/23 07:48
PT 12.6 Sec (11.4-14.6) 08/19/23 13:02
INR 0.96 08/19/23 13:02
APTT 22.9 Sec (23.4-35.0) L 08/19/23 13:02
eGFR > 60.00 09/04/23 07:48
--- NOTE | 2023-09-04 15:18 | W.PN.PUL3 ---
Today's Communication / Plan
-
Continue oxygen supplementation
Transition to prednisone
Continue nebulizer therapy
Physical therapy as able
Assessment
-
Patient is a 72 year old F with PMH significant for PAF, severe persistent asthma, hypothyroidism admitted 08/16/23 for abnormal sodium (Na =122).� Patient was admitted here Jun for Strep pneumonia.� She was discharged to [facility] [place]
and then admitted to [facility] with COVID.� Patient states that she then began to develop increased edema/fluid retention in the legs.� She was started on a diuretic regimen consisting of BID Lasix and daily metolazone. In the past 12 hours, she notes
worsening cough/SOB.� Per daughter who provides history on the phone, this was a change that they witnessed since she's been admitted. They have requested pulmonary evaluation 08/19/23. Patient stabilized and pulmonary initially signed off 08/27/23
and pulmonary was consulted again . As surgery wants to do rectal exam under anesthesia and asking for perioperative risks. 08/29/23.
Symptomatic hypovolemic hyponatremia likely 2/2 over-diuresis -hyponatremia now resolved
Asthma-moderate persistent with acute exacerbation
GI bleed-felt to be secondary to rectal fissure and necrotic hemorrhoid
Acute Confusion/Encephalopathy related to above - confused resolved now
Generalized weakness
Chronic cough, nonproductive
Acute on chronic SOB -likely due to RODRIGUEZ
Urinary retention s/p Alicia
Severe persistent asthma requiring biologic therapy now with acute exacerbation
LLL consolidation - chronic since November 2022 (unknown if present prior to that as we do not have imaging before that time)
Conditions [employer]:
Adm Jul 2023 for Strep PNA with AE asthma
Adm November 2022: acute hypoxemic respiratory failure, CAP LLL infiltrate, markedly ^PCT, asthma exacerbation. Completed 5d cefepime
Severe asthma, on daliresp, fluticasone, montelukast, salmeterol
Follows up at [facility] and [facility]
Monoclonal B-cell lymphocytosis
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
AFib s/p ablation
Hypothyroidism
Hysterectomy
R hip replacement
Cataract surgery
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
Seasonal allergies
Intermittent epistaxis, historically L>>>R
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
Allergy to azithromycin
DNR
Plan
Comfortable from the respiratory status.- Mild bilateral exp wheezing, coughing during visit.
Currently 94% on 3 L-stable
Patient does not have prior history of oxygen use, however, while at rehabilitation, was receiving 3 L
Home oxygen assessment closer to discharge.
-
She has prior history of severe persistent asthma, being managed by Dr Neely/[facility] as well.
She was recently on a prednisone taper after Jul 2019 for admission.� She does feel better with oral steroid dosing.
Recent spirometry as outpatient demonstrating poor effort/cough throughout, but FEV1 1.63L 73%
-
From the pulmonary perspective:
Will try to decrease corticosteroids as soon as possible. Transition to prednisone 30 mg with a slow taper.
With EGD findings: Esophageal candidiasis we will try to wean off as soon as possible.
Also has history of hypogammaglobinemia and also RODRIGUEZ in the lung.
-
Continue nebulizers
Singulair continues
Mucolytic's
Antitussives
Daliresp continues
Continue fluticasone/serevent bid, patient can take her own
Continue levalbuterol HFA/nebs prn
-
Last time in Dr Neely office 05/2023 - [place] ( Biologic therapy was started per [facility] Doctor) currently on hold.
-
acute on chronic SOB due to recent episodes of strep PNA followed by COVID with deconditioning and CHF- Slowly improving, likely will need rehab.
CXR 08/19/23: L basilar atelectasis but not significantly changed from prior, never had chest CT.
Repeat PFT showing decline but still within moderate range
6MWT pending: patient declined on 08-19
CT Chest obtained showing LLL consolidation, there is small pericardial effusion (trivial on TTE 08-20-23)
Patient is status post bronch with BAL on 08/22/23 -growing AFB, suspected to be RODRIGUEZ.� Follow-up sensitivities.� Follow-up fungus and bacterial culture. No lung biopsies.
ID recommended outpx follow up to address RODRIGUEZ.
-
ECHO results in past reviewed--stable function
Patient's repeat ECHO on 08/20/2023 shows normal biventricular function.
Diuretics per primary team.
-
Hematology following as well.
-
GI bleed-felt to be secondary to rectal fissure and ?necrotic hemorrhoid- s/p bx, results pending.
s/p EGD/colonoscopy
Gi has signed off.
Colorectal surgery following.
-
DVT prophylaxis-mechanical
GI prophylaxis-pantoprazole.
Nutrition per GI.
Patient should follow up with Dr Neely in 3-4 wks after DC
Will follow

Diagnostic Data
CXR 08/19/23- LLL atelectasis
CXR 07/10/23- IMPRESSION: There is consolidation in the left lower lobe consistent with improving pneumonia along with a left pleural effusion. There is probable atelectasis in the right lower lobe.
CXR 07-05-23: Progressed findings suggesting mild left lower lobe pneumonia; New moderate right lower lobe probable atelectasis; Mild cardiomegaly. Stable
CXR 07-03-23 c/w November 15 and . Baseline films with improved LLL infiltrate but persistently blurred L diaphragm. Current films without gross infiltrates but suspicious for positive spine sign at L base
CT Chest 08/20/23: Left base consolidation and/or atelectasis, small amount of right base atelectasis with shift of the mediastinum toward the left. No discrete mediastinal or hilar mass identified however repeat imaging with IV contrast after
treatment is recommended to exclude an occult process. Small bibasilar pleural effusions. Small to moderate amount of pericardial effusion.
Spirometry 08/20/22: FEV1 1.21L 54%, FVC 1.46L 49%, ratio 83. Post FEV1 1.27L 57% no BD response. (mixed pattern, moderately reduced, decreased from prior testing but remains in moderate category)
PFT:
Spirometry 05/23/2023: FEV1/FVC 82%, FEV1 1.63 L-73%, FVC 1.97 L, 66%.� No airflow obstruction.� Patient has difficulty with the maneuvers due to coughing.
[place] 12/17/22: unable.
6 MWT:
6MWT 12/17/22: At rest, O2 99% on room air, heart rate 82. With ambulation, O2 remained at 99 to 100% on room air, max heart rate 90. 5/10 on dyspnea scale. Only able to ambulate 150 feet
ECHO 07/08/23- �LV ejection fraction is 60-65%, by visual assessment. No regional wall motion�abnormalities are seen.�Normal right ventricular size and function.�No significant valvular disease.�No prior study available for comparison.
Subjective Data
-
Date of Service:
Date of Service: September 04, 2023
Chief Complaint: Pulmonary Follow Up and Dyspnea Follow Up
Subjective:
Continues to report cough, no increased on phlegm production or hemoptysis.
Review of Systems
General: Fever (n)
Cardiopulmonary: Dyspnea (none at rest)
Objective Data
Data Reviewed
Vital Signs / I&O / Oxygen:
Vital Signs
Temp Pulse Resp BP Pulse Ox
98.1 F 90 14 121/80 96
09/04/23 07:15 09/04/23 12:17 09/04/23 08:20 09/04/23 12:17 09/04/23 08:20
Intake and Output
09/03/23 09/04/23 09/05/23
06:59 06:59 06:59
Intake Total 1500 / 1500 1110 / 1110
Output Total 1775 / 1775 2200 / 2200
Balance -275 / -275 -1090 / -1090
SaO2 96
Nasal Cannula flow liters per 3
minute
Physical Exam
General: Comfortable and Other (Mild kyphoscoliosis)
HEENT: Normocephalic, Anicteric and Moist Mucous Membranes
Cardiovascular: S1-S2, Regular Rhythm, Murmur (n), Peripheral Edema (tr) and Other (Mild drainage, lower extremities)
Respiratory: Wheeze (Mild, worse with cough spasms), Crackles (Few at left base), Rhonchi (negative), Non-Labored Respirations and Stridor (negative)
GI: Soft, Non Distended, Non Tender and Normal Bowel Sounds
Neurology: Awake, Alert and No Motor Deficits
Skin: Good Color, Cyanosis (n) and Jaundice (n)
Labs/Micro/Reports
Lab Data
09/04/23 07:48
09/04/23 07:48
Microbiology
08/22/23 09:56 Bronch Left Upper Lobe Acid Fast Bacilli Smear - Preliminary
08/22/23 09:56 Bronch Left Upper Lobe Acid Fast Bacilli Culture - Preliminary
Acid fast bacilli
M. avium-intracellular complex
08/22/23 09:56 Bronch Left Lower Lobe Acid Fast Bacilli Smear - Preliminary
08/22/23 09:56 Bronch Left Lower Lobe Acid Fast Bacilli Culture - Preliminary
Acid fast bacilli
08/22/23 09:56 Bronch Left Lower Lobe Specimen Source - Final
08/22/23 09:56 Bronch Left Lower Lobe Mycobacterium tuberculosis DNA (PCR - Final
08/22/23 09:56 Bronch Left Lower Lobe M. tuberculosis Rifampin (PCR) - Final
08/22/23 09:56 Bronch Left Lower Lobe M. tuberculosis Complex Interpretat - Final
08/22/23 13:56 Bronch Left Lower Lobe Fungus Mold Identification - Final
Clavispora lusitaniae
08/22/23 09:56 Bronch Left Upper Lobe Fungal Culture - Preliminary
Culture in progress.
Positive cultures are reported as soon as detected.
Final report to follow in four to five weeks.
08/22/23 09:56 Bronch Left Lower Lobe Fungal Culture - Preliminary
Yeast
--- NOTE | 2023-09-04 15:25 | CM ---
Patient seen bedside.
S/p OR yesterday.
Per patient hgb continues to decrease, continues with orthostasis.
Plan: home with VN vs skilled rehab when medically stable.
[2023-09-04 15:48] VITALS: BP 100/61; BP 114/68; BP 120/66; PULSE 101; O2SAT 95
[2023-09-04] MEDS: VITAMIN D3 (cholecalciferol) 25 MCG PO (16:15)
--- NOTE | 2023-09-04 16:58 | W.PN.HOSP.TC ---
Today's Communication/Plan
-
Please see below
Assessment / Plan
Assessment / Plan
Physical Exam
General: Not in acute distress
HEENT: Normocephalic, Atraumatic
Respiratory: Scattered wheezes and some crackles
Cardiac: Regular Rhythm and S1/S2
GI: Soft, Nontender and Nondistended. Positive bowel sounds.
Musculoskeletal: No Cyanosis and No Edema.

CT Head (as per radiologist's report) without IV contrast appreciated No acute intracranial abnormality
CT Chest W/o Iv Contrast (as per radiologist's report) appreciated Left base consolidation and/or atelectasis, small amount of right base atelectasis with shift of the mediastinum toward the left. Limited exam without IV contrast. No discrete
mediastinal or hilar mass identified however repeat imaging with IV contrast after treatment was recommended to exclude an occult process. Small bibasilar pleural effusions. Small to moderate amount of pericardial effusion
ECHO (as per glass mechanic's report) appreciated
Normal biventricular size and systolic function without regional wall motion
abnormality.
No significant valvular disease.
No prior study available for comparison
Assessment/Plan
72 y/o female with complicated history including, but not limited to pAfib COPD Asthma Hypothyroidism Monoclonal B-cell Lymphocytosis Hypogammaglobulinemia intolerant to IgG infusion Arthritis p/w weakness confusion encephalopathy COPD exacerbation
PNA Hyponatremia Acute Kidney Injury persistent orthostatic hypotension. Since improved, hospitalization prolonged due to progressive anemia unclear source. Pending EGD rectal exam under anesthesia.
Symptomatic Hypovolemic Hyponatremia related to over-diuresis. Was feeling weak, unable to walk and confused
- Metolazone discontinued
- Lasix reduced to 40 mg daily, continued for Lower ext swelling weeping likely chronic lymphedema (outpatient lymphedema clinic recommended)
- Celebrex initially held, was previously resumed as below, and placed on hold with worsening anemia and persistent rectal bleeding last dose 08/29 in AM
- IVF completed
- Na improved 130s
Osteoarthritis
-Sees operations administrator Dr. Colón outpatient at [place], being worked up for inflammatory arthritis
-Consulted rheumatology, recommendations appreciated
-Spoke with Dr. Robert Hayward (operations administrator) over the phone on 09/03/23 -- discussed case with him -- he recommended 3000 mg Tylenol total daily dose to be given every day for now and then if the pain doesn't improve, then call rheumatology
again
-Dr. Hayward mentioned he will update patient's operations administrator Dr. Colón
Acute Confusion/Encephalopathy - Resolved
Generalized Weakness Below Baseline
Left Lower Lobe Consolidation on CT Imaging
Left Lower Lobe Atelectasis
Suspected COPD Exacerbation
Cough, Rhonchi
AFB smears positive
-UA (urine culture with no growth), Influenza (negative), COVID (negative), Ammonia (low), Coagulation Studies (okay), Serum osmoles (okay), Blood cultures (no growth to date), TSH (low but T4 wnl - outpatient follow up), Vitamin B12 (non-deficient)
-Cortisol (in the morning) was low at 1.3 -- likely suppression d/t steroids
-CT Head unremarkable
-Thiamine 100 mg PO daily
-Follow-up outpatient as per Infectious Disease in latest by mid-October 2023, for positive AFB smears
Small bibasilar pleural effusions
Small to moderate amount of pericardial effusion
-Cardiology consult appreciated
-Echocardiogram ordered, results are above
-On echo, pericardial effusion is trivial
Orthostatic Hypotension
Dizziness/Lightheadedness on Standing
-patient not tolerating abd binder, has been using knee high TEDs only
-cardio consult appreciated, midodrine increased to 10 mg TID, cardizem and lasix discontinued (lasix later resumed reduced dose for lymphedema as above), LE compression NEO bandages applied
Bright red blood through vagina and rectal areas
Bright Red Blood Per Rectum on 08/21/23
Hemorrhoids
Anal Ulcer
-Monitor Hgb transfuse goal Hgb>7, pretreat with tylenol and benadryl given hx transfusion rxn hives, use washed red cells given hx hypogammaglobulinemia
-outpatient OBGYN follow up
GI eval appreciated Colonoscopy performed 08/27
� � � � � � � � � � � '- Non-bleeding internal and external hemorrhoids.
�� � � � � � � � � � � - Diverticulosis in the entire examined colon.
�� � � � � � � � � � � - The examination was otherwise normal.
�� � � � � � � � � � � - One 4 mm polyp in the descending colon, removed with
�� � � � � � � � � � � a jumbo cold forceps. Resected and retrieved.
�� � � � � � � � � � � - One 8 mm polyp in the ascending colon, removed with
�� � � � � � � � � � � a hot snare. Resected and retrieved.'
GI eval appreciated upper endoscopy performed 09/01
'Patient had 2 small angioectasias in the small bowel
which can contribute to bleeding.
- Esophageal plaques were found, consistent with
candidiasis.
- 3 cm hiatal hernia.
- Normal stomach.
- Two angioectasias in the duodenum. Treated with
argon plasma coagulation (APC). Clip was placed over
the one in the 2nd portion.
- No specimens collected.
Continue fluconazole x 14 days to treat the esophageal candidiasis above.
Bleeding and anemia persisted worsened
Proton pump inhibitor PO daily while inpatient, then ok for as needed.
CTA abd pelvis appreciated no active bleeding
flex sig performed 08/29 anal fissure and hemorrhoids noted
CRS eval: on 09/01/23 rectal exam performed under anesthesia, biopsy of anal ulcer, fulguration of anal ulcer -- follow-up on biopsy -- operative findings could be related to immunosuppression
CRS on 09/04/23 performed again rectal exam under anesthesia, rigid proctosigmoidoscopy, suture of small rectal ulcer, Botox chemodenervation
Continue Calmol 4 suppositories 4 times daily, and fiber supplementation, and daily sitz baths
Continue nifedipine with lidocaine twice daily if patient finds it beneficial
Normocytic Anemia
Anemia of Chronic Disease
Patient reported remote history adverse rxn blood transfusion hives all over
Monoclonal B cell lymphocytosis
Immunosuppressed with undetectable IgG and IgA levels
-Iron Studies appreciated AOCD with Iron level wnl
-Vit B12 non-deficient
-Hematology Eval Appreciated
-September 01, 2023: on this date, patient preferred to have transfusion done (prior to EUA above) when we can give premeds and observe closely. Okay for leukoreduced and irradiated PRBCs today: Tylenol 650 mg PO, Benadryl 50 mg IV, Pepcid 20 mg IV,
Solucortef 100 mg IV (in addition to the steroids she is already getting). Give irradiated due to profound immunosuppression; washed PRBC's would be ideal to give but these need to come from [place] and would not be available for at least a day or
two.
History of hypogammaglobulinemia Suspected to be related to underlying lymphoproliferative disorder.
Intolerant to IVIg transfusions in the past.
Low threshold for abx initiation if new fevers or infectious symptoms
confirmed IgA IgG IgM deficient 08/26
Hypokalemia resolved at this time
-monitor and replete as necessary
Chronic dean catheter, requires Flomax
Recent Urethral Bleeding from a Urinary Catheter
Uretheral Prolapse
Bladder Spasms
Reported urinary clots
-Urology consult appreciated, cont outpt follow up with her urologist at [facility]
-Suspected atrophic vaginitis, Estrace cream started, vaginal bleeding since resolved, outpt obgyn follow up
Severe COPD
Prior history of severe persistent asthma
Chronic Hypoxic Respiratory Failure
Acute on chronic SOB due to recent episodes of strep PNA followed by COVID with deconditioning and CHF
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
Left Lower Lobe PNA , suspected RODRIGUEZ coinfection likely present on admission
-Recent admissions for Strep pneumonia and COVID
-Patient alternates 6 weeks coarse of doxycycline and Ceftin - Currently on doxycycline
-Switch to prednisone from Dexamethasone IV - dose being decreased by pulm. Later, can continue prednisone as prior to admission, currently tapering down 10mg every 5 days to baseline 5mg
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
-tapered from 30 mg to 20 mg starting 08/24 converted to IV decadron as per pulm 08/29 due to significant wheezing
-Continue Daliresp
-Continue fluticasone and salmeterol
-Continue levalbuterol prn
-Pulm eval appreciated
-Bronchoscopy performed on 08/22/23: follow bronchoalveolar lavage and cultures results acid fast bacilli positive pending speciation, PCR for TB however neg
-Infectious Disease consulted appreciated, Cefepime converted to cefdinir, no need for isolation/quarantine at this time. Cefdinir completed 08/29
Paroxysmal Atrial Fibrillation s/p Ablation
-Patient is not on anticoagulation as outpatient
-Continue diltiazem discontinued as above
Sacrum Healing Stage 3 pressure injury, POA
-Continue wound care
Anxiety/Depression
-Continue Duloxetine and alprazolam
Hypothyroidism
-Continue levothyroxine
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
-Continue gabapentin and duloxetine
-Gabapentin at max dose 1800 mg at 3 divided doses for her Cr clearance, transition to pregabalin offered patient however declines at this time
Arthritis
-home celecoxib resumed 08/25, discontinued 08/29 d/t worsening anemia persistent rectal bleed,
-celecoxib subsequently substituted with tramadol prn ordered, appears to be tolerating well at this time however symptoms ('locking joints') remain uncontrolled
-consulted Rheumatology -- spoke with rheumatology over the phone on 09/03/23 AM -- see above
Environment/Seasonal Allergies
-Continue fexofenadine and montelukast
History of Steroid-Induced Myopathy
PT/OT appreciated HH
DVT proph: (Previously Lovenox discontinued due to Bleeding as above) TERRI stockings, SCDs
GI ppx: protonix
Code Status: DNR/DNI
Anticipated Discharge: > 48 hours
Subjective/Interval History
-
Date of Service: September 04, 2023
Patient was seen and examined. She requested that her Tramadol be increased given joint pains from her arthritis. Per nurse, and per patient, patient slid out of bed (she did not have a fall or a traumatic fall).
Objective Data
-
Labs:
Laboratory Results
09/04/23
07:48
WBC 13.3 H
Hgb 9.8 L
Hct 29.4 L
Plt Count 235
Sodium 134 L
Potassium 4.3
Chloride 102
Carbon Dioxide 32 H
BUN 17
Creatinine 0.6
Glucose 121 H
Calcium 8.4
Vital Signs:
Vital Signs
Temp Pulse Resp BP Pulse Ox
98.1 F 90 14 121/80 96
09/04/23 07:15 09/04/23 12:17 09/04/23 08:20 09/04/23 12:17 09/04/23 08:20
I&O
09/03/23 09/04/23 09/05/23
06:59 06:59 06:59
Intake Total 1500 / 1500 1110 / 1110
Output Total 1775 / 1775 2200 / 2200
Balance -275 / -275 -1090 / -1090
[2023-09-04] MEDS: VITAMIN C 500 MG PO (17:51)
[2023-09-04] MEDS: CYMBALTA DELAYED RELEASE 60 MG PO (19:33)
[2023-09-04] MEDS: SINGULAIR 10 MG PO (22:18)
[2023-09-04] MEDS: DALIRESP 500 MCG PO (22:18)
[2023-09-04] MEDS: XANAX 0.5 MG PO (22:25)
[2023-09-04 22:50] VITALS: BP 118/76
[2023-09-04] MEDS: ESTRACE 0.01% VAGINAL CREAM 1 APPLIC VAG (22:53)
[2023-09-05] MEDS: ULTRAM 50 MG PO ×3 (05:46→17:54)
[2023-09-05] MEDS: TESSALON PERLES 100 MG PO (05:47)
[2023-09-05] MEDS: MIRALAX 17 GRAMS PO (05:47)
[2023-09-05] MEDS: NEURONTIN 600 MG PO ×3 (05:47→22:29)
[2023-09-05] MEDS: TYLENOL PO (05:58)
[2023-09-05 06:00] VITALS: BMI 20.7
[2023-09-05] MEDS: SYNTHROID 112 MCG PO (06:14)
[2023-09-05] MEDS: TYLENOL 1000 MG PO ×3 (06:21→22:23)
[2023-09-05 08:00] VITALS: BP 124/73
[2023-09-05] MEDS: XOPENEX 0.63 MG INHALANT SOLUTION 0.630000000000000004 MG INH ×3 (08:06→20:45)
[2023-09-05] MEDS: NON-FORMULARY ITEM 1 UNIT INH ×2 (08:11→20:45)
[2023-09-05] MEDS: NON-FORMULARY ITEM 2 INH INH ×2 (08:11→20:34)
[2023-09-05] MEDS: FLOMAX 0.800000000000000044 MG PO (08:57)
[2023-09-05] MEDS: OSCAL 500 + D 500 MG PO ×2 (08:57→20:29)
[2023-09-05] MEDS: Pyridium 100 MG PO ×3 (08:57→22:21)
[2023-09-05] MEDS: VITAMIN B1 100 MG PO (08:58)
[2023-09-05] MEDS: ProAmatine 10 MG PO ×3 (08:58→17:48)
[2023-09-05] MEDS: DELTASONE 30 MG PO (08:58)
[2023-09-05] MEDS: CYMBALTA DELAYED RELEASE 30 MG PO (08:58)
[2023-09-05] MEDS: PROTONIX 40 MG PO (08:58)
[2023-09-05] MEDS: KCL 20 MEQ PO (08:59)
[2023-09-05] MEDS: VITAMIN B-12 500 MCG PO (08:59)
[2023-09-05] MEDS: LASIX 40 MG PO (09:00)
[2023-09-05] MEDS: DIFLUCAN 200 MG PO (09:00)
[2023-09-05] MEDS: NON-FORMULARY ITEM 1 SPRAY NASAL (09:01)
[2023-09-05] MEDS: NON-FORMULARY ITEM 2 SPRAY NASAL ×2 (09:01→20:34)
[2023-09-05 09:13] LABS: Hematocrit 30.1 % (37.0-47.0); Mean Corp Hgb Conc. 33.2 g/dL (33.0-37.0); Mean Corpuscular Hgb 32.8 pg (27.0-31.0); Mean Corpuscular Volume 98.7 fL (81.0-99.0); Mean Platelet Volume 9.1 fL (7.4-10.4); Platelet Count 230 10^3/uL (130-400); Red Blood Cell Count 3.05 10^6/uL (4.20-5.40); Red Cell Dist. Width 16.2 % (11.5-14.5); White Blood Cell Count 12.1 10^3/uL (4.8-10.8)
--- NOTE | 2023-09-05 09:24 | W.PN.ID1 ---
Date of Service
Date of Service: September 05, 2023
Today's Communication
Start Valacyclovir x 10 days.
See below.
Assessment / Plan
Anal bleeding ulcers
- 09/03/23 s/p flex sig, suture of small rectal ulcer, Botox chemodenervation
Anal ulcer biopsy: + HSV\\
- no prior history of genital HSV. Not sexually active since 5 yrs ago.
Left lower lobe pneumonia
Hypoxemia
Suspected exacerbation of COPD
Recovery of Mycobacterium from [facility] sample
- PCR negative for Mycobacterium tuberculosis; suspect RODRIGUEZ
Monoclonal B-cell lymphocytosis
P A-fib
Hypothyroidism
Gait dysfunction
Hx Steroid-induced myopathy
Recommendations:
Anal HSV, first episode. Start valacyclovir 1000 mg po bid x 10 days through 09/14/23.
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
Same organism recovered from [facility]. Suspect contaminant versus colonizer.
Agree with fluconazole x14 days
LFTs were normal 08/29
Repeat QTc essentially unchanged
S/P course of cefdinir
AFB stain positive; TB PCR negative. Awaiting final speciation of recovered AFB.
Outpatient follow-up in [address] Carlin to discuss options.
����������������������������������������������������������
Chief Complaint
-: Other (candidal esophagitis)
Subjective / Review of Systems
Asked to see pt for anal HSV seen on biopsy.
Pt reports still with mild anal bleeding. Pain somewhat improved.
Vital Signs / Physical Exam
Vital Signs
Vital Signs
Temp Pulse Resp BP Pulse Ox
99.1 F 72 14 124/73 97
09/05/23 08:00 09/05/23 08:13 09/05/23 08:13 09/05/23 08:00 09/05/23 08:00
Physical Exam
Constitutional: No Acute Distress
Pulmonary: Rhonchi
Gastrointestinal: Soft, Non Tender, Non Distended and Normal Bowel Sounds
Extremities: Negative Edema
Neurological: AO x 3
Objective Data
Lab Data
PT 12.6 Sec (11.4-14.6) 08/19/23 13:02
INR 0.96 08/19/23 13:02
APTT 22.9 Sec (23.4-35.0) L 08/19/23 13:02
Estimated Creat Clear 74 ml/min 09/04/23 07:48
Lactic Acid 1.9 mmol/L (0.7-2.0) 08/16/23 19:17
Total Bilirubin 1.0 mg/dl (0.2-1.3) 09/03/23 09:18
AST 21 U/L (14-36) 09/03/23 09:18
ALT 20 U/L (0-35) 09/03/23 09:18
Alkaline Phosphatase 39 U/L (38-126) 09/03/23 09:18
Most recent labs reviewed.
Micro Results:
08/22/23 09:56 Acid Fast Bacilli Smear - Preliminary
Bronch Left Upper Lobe Acid Fast Bacilli Culture - Preliminary
Acid fast bacilli
M. avium-intracellular complex
08/22/23 09:56 Acid Fast Bacilli Smear - Preliminary
Bronch Left Lower Lobe Acid Fast Bacilli Culture - Preliminary
Acid fast bacilli
Specimen Source - Final
Mycobacterium tuberculosis DNA (PCR - Final
M. tuberculosis Rifampin (PCR) - Final
M. tuberculosis Complex Interpretat - Final
08/22/23 13:56 Fungus Mold Identification - Final
Bronch Left Lower Lobe Clavispora lusitaniae
08/22/23 09:56 Fungal Culture - Preliminary
Bronch Left Upper Lobe Culture in progress.
Positive cultures are reported as soon as detected.
Final report to follow in four to five weeks.
08/22/23 09:56 Fungal Culture - Preliminary
Bronch Left Lower Lobe Yeast
08/19/23 16:02 Blood Culture - Final
Blood/Venous No Growth - Final Report
08/19/23 13:02 Blood Culture - Final
Blood/Venous No Growth - Final Report
08/22/23 09:56 Respiratory Culture - Final
Bronch Left Upper Lobe Usual Respiratory Kayla
Gram Stain - Final
08/22/23 09:56 Respiratory Culture - Final
Bronch Left Lower Lobe Usual Respiratory Kayla
Gram Stain - Final
08/21/23 11:11 Respiratory Culture - Final
Sputum Usual Respiratory Kayla
Gram Stain - Final
08/20/23 20:54 Respiratory Culture - Final
Sputum Gram Stain - Final
08/19/23 12:40 Urine Culture - Final
Urine NO GROWTH
08/19/23 12:39 Influenza Types A & B (DIEGO) - Final
Nasal Swab Negative for Influenza A & B, NAAT
Negative results must be combined with clinical observations
and patient history.
Nucleic Acid Amplification test (NAAT)performed on the
[employer] platform.
08/16/23 20:05 Urine Culture - Final
Urine NO GROWTH
09/01/2023 Anal ulcer biopsy: anus, edges of anal ulcer, biopsy: Ulcer and cellular changes consistent with herpes infection
Care Review
Plan reviewed with: Physician (Dr. Vance)
[2023-09-05] MEDS: NON-FORMULARY ITEM 1 UNIT PO (09:36)
[2023-09-05] MEDS: METAMUCIL, KONSYL PO (09:37)
[2023-09-05 09:38] LABS: Blood Urea Nitrogen 15 mg/dl (7-17); Calcium 8.5 mg/dl (8.4-10.2); Carbon Dioxide 34 mmol/L (22-30); Chloride 100 mmol/L (98-107); Estimated Creatinine Clearance 74 ml/min; Glucose 93 mg/dl (70-99); Magnesium 2.7 mg/dl (1.6-2.3); Phosphorus 2.4 mg/dl (2.5-4.5); Potassium 3.8 mmol/L (3.5-5.1); Sodium 137 mmol/L (135-145); eGFR > 60.00
[2023-09-05] MEDS: VALTREX 1000 MG PO ×2 (09:42→20:29)
[2023-09-05] MEDS: TYLENOL 650 MG PO (11:16)
[2023-09-05] MEDS: HYDROCORTISONE 2.5% CREAM 1 APPLIC TOPICAL (11:17)
--- NOTE | 2023-09-05 11:19 | W.PN.CRS1 ---
Addendum entered and electronically signed by Benny Vance MD 09/05/23 17:10:
I saw and examined the patient.
The PA's note was reviewed and I agree with the note.
Comment:
Seen in a.m. with PA.
Patient admits to a little spotting of blood overnight.
Vitals reasonable. Hemoglobin stable at 10.
Anal exam deferred.
Biopsy results from the OR came back showing evidence for herpes. Discussion had with patient. Reconsulted ID for their input.
Original Note:
Today's Communication / Plan
-
Reconsult ID for herpes infection
Assessment/Plan
-
POD#4 Exam under anesthesia, biopsy of anal ulcer, fulguration of anal ulcer, POD#1 �Rectal exam under anesthesia, rigid proctosigmoidoscopy, suture of small rectal ulcer, Botox�
1.� Hgb is stable, 10.0. She has had some spotting since the OR but no overt bleeding.
2.� Continue daily sitz baths and miralax/fiber.
3.� Bladder scan if does not void. Discussed with RN.
4.� OR pathology is consistent with herpes infection. We have reached out to infectious disease for reconsult given this finding. Discussed this with the patient.
5. Calmol suppositories PRN. Metamucil daily.
6. No further surgery is indicated at this time.
Subjective Data
Procedure
09/01- Exam under anesthesia, biopsy of anal ulcer, fulguration of anal ulcer
09/03- �Rectal exam under anesthesia, rigid proctosigmoidoscopy, suture of small rectal ulcer, Botox�
Subjective Data
Date of Service: September 05, 2023
Patient states she is still having some spotting rectally. She has no other complaints.
Objective Data
-
Vital Signs
Temp Pulse Resp BP Pulse Ox
99.1 F 72 14 124/73 97
09/05/23 08:00 09/05/23 08:13 09/05/23 08:13 09/05/23 08:00 09/05/23 08:00
Intake & Output
09/04/23 09/05/23 09/06/23
06:59 06:59 06:59
Intake Total 1110 / 1110
Output Total 2200 / 2200 1500 / 1500
Balance -1090 / -1090 -1500 / -1500
Intake:
Oral fluids 960 / 960
IV fluids (Total) 150 / 150
Normosal 150 / 150
Output:
Urine, Voided 2200 / 2200 1500 / 1500
Lab Results
09/05/23 08:11
09/05/23 08:11
Physical Exam
-
General: No Acute Distress and AOx3
--- NOTE | 2023-09-05 14:50 | W.PN.PUL3 ---
Today's Communication / Plan
-
Continue nebulizer
Continue inhalers
Secretion clearance interventions
Prednisone taper
Wean off oxygen, home oxygen assessment closer to discharge
Sign off
Assessment
-
Patient is a 72 year old F with PMH significant for PAF, severe persistent asthma, hypothyroidism admitted 08/16/23 for abnormal sodium (Na =122).� Patient was admitted here Jun for Strep pneumonia.� She was discharged to [facility]'s rehab
and then admitted to [facility] with COVID.� Patient states that she then began to develop increased edema/fluid retention in the legs.� She was started on a diuretic regimen consisting of BID Lasix and daily metolazone. In the past 12 hours, she notes
worsening cough/SOB.� Per daughter who provides history on the phone, this was a change that they witnessed since she's been admitted. They have requested pulmonary evaluation 08/19/23. Patient stabilized and pulmonary initially signed off 08/27/23
and pulmonary was consulted again . As surgery wants to do rectal exam under anesthesia and asking for perioperative risks. 08/29/23.
Symptomatic hypovolemic hyponatremia likely 2/2 over-diuresis -hyponatremia now resolved
Asthma-moderate persistent with acute exacerbation
GI bleed-felt to be secondary to rectal fissure and necrotic hemorrhoid
Acute Confusion/Encephalopathy related to above - confused resolved now
Generalized weakness
Chronic cough, nonproductive
Acute on chronic SOB -likely due to RODRIGUEZ
Urinary retention s/p Alicia
Severe persistent asthma requiring biologic therapy now with acute exacerbation
LLL consolidation - chronic since November 2022 (unknown if present prior to that as we do not have imaging before that time)
Conditions [employer]:
Adm Jul 2023 for Strep PNA with AE asthma
Adm November 2022: acute hypoxemic respiratory failure, CAP LLL infiltrate, markedly ^PCT, asthma exacerbation. Completed 5d cefepime
Severe asthma, on daliresp, fluticasone, montelukast, salmeterol
Follows up at [facility] and [facility]
Monoclonal B-cell lymphocytosis
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
AFib s/p ablation
Hypothyroidism
Hysterectomy
R hip replacement
Cataract surgery
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
Seasonal allergies
Intermittent epistaxis, historically L>>>R
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
Allergy to azithromycin
DNR
Plan
Comfortable from the respiratory status.- Mild bilateral exp wheezing, coughing during visit.
Currently 94% on 3 L-stable
Patient does not have prior history of oxygen use, however, while at rehabilitation, was receiving 3 L
Home oxygen assessment closer to discharge.
-
She has prior history of severe persistent asthma, being managed by Dr Neely/[facility] as well.
She was recently on a prednisone taper after Jul 2019 for admission.� She does feel better with oral steroid dosing.
Recent spirometry as outpatient demonstrating poor effort/cough throughout, but FEV1 1.63L 73%
-
From the pulmonary perspective:
Continue prednisone taper, decrease by 10 mg every 5 days, should be discharged on 10 mg until seen in my office.
Will try to minimize steroids given these findings.
With EGD findings: Esophageal candidiasis we will try to wean off as soon as possible.
Also has history of hypogammaglobinemia and also RODRIGUEZ in the lung.
Anal ulcer consistent with herpes.
-
Continue nebulizers
Singulair continues
Mucolytic's
Antitussives
Daliresp continues
Continue fluticasone/serevent bid, patient can take her own
Continue levalbuterol HFA PRN and nebs TID
-
Last time in Dr Neely office 05/2023 - [place] ( Biologic therapy was started per [facility] Doctor) currently on hold.
-
h/o strep PNA followed by [facility].
CXR 08/19/23: L basilar atelectasis but not significantly changed from prior, never had chest CT.
Repeat PFT showing decline but still within moderate range
6MWT pending: patient declined on 08-19
CT Chest obtained showing LLL consolidation, there is small pericardial effusion (trivial on TTE 08-20-23)
Cmpleted ABx therapy.
Patient is status post bronch with BAL on 08/22/23 -growing AFB, suspected to be RODRIGUEZ.� Follow-up sensitivities.� Follow-up fungus and bacterial culture. No lung biopsies.
ID recommended outpx follow up to address RODRIGUEZ.
-
ECHO results in past reviewed--stable function
Patient's repeat ECHO on 08/20/2023 shows normal biventricular function.
Diuretics per primary team.
-
Hematology following as well.
-
GI bleed-felt to be secondary to rectal fissure and ?necrotic hemorrhoid-consistent with herpes infection.
Minimize steroids.
Therapy per infectious disease.
s/p EGD/colonoscopy
Gi has signed off.
Colorectal surgery following.
-
DVT prophylaxis-mechanical
GI prophylaxis-pantoprazole.
Patient should follow up with Dr Neely in 3-4 wks after DC
No additional recommendation from the pulmonary perspective. Again, should be discharge on prednisone taper, down to 10 mg until seen in my office.

Diagnostic Data
CXR 08/19/23- LLL atelectasis
CXR 07/10/23- IMPRESSION: There is consolidation in the left lower lobe consistent with improving pneumonia along with a left pleural effusion. There is probable atelectasis in the right lower lobe.
CXR 07-05-23: Progressed findings suggesting mild left lower lobe pneumonia; New moderate right lower lobe probable atelectasis; Mild cardiomegaly. Stable
CXR 07-03-23 c/w November 15 and . Baseline films with improved LLL infiltrate but persistently blurred L diaphragm. Current films without gross infiltrates but suspicious for positive spine sign at L base
CT Chest 08/20/23: Left base consolidation and/or atelectasis, small amount of right base atelectasis with shift of the mediastinum toward the left. No discrete mediastinal or hilar mass identified however repeat imaging with IV contrast after
treatment is recommended to exclude an occult process. Small bibasilar pleural effusions. Small to moderate amount of pericardial effusion.
Spirometry 08/20/22: FEV1 1.21L 54%, FVC 1.46L 49%, ratio 83. Post FEV1 1.27L 57% no BD response. (mixed pattern, moderately reduced, decreased from prior testing but remains in moderate category)
PFT:
Spirometry 05/23/2023: FEV1/FVC 82%, FEV1 1.63 L-73%, FVC 1.97 L, 66%.� No airflow obstruction.� Patient has difficulty with the maneuvers due to coughing.
[place] 12/17/22: unable.
6 MWT:
6MWT 12/17/22: At rest, O2 99% on room air, heart rate 82. With ambulation, O2 remained at 99 to 100% on room air, max heart rate 90. 5/10 on dyspnea scale. Only able to ambulate 150 feet
ECHO 07/08/23- �LV ejection fraction is 60-65%, by visual assessment. No regional wall motion�abnormalities are seen.�Normal right ventricular size and function.�No significant valvular disease.�No prior study available for comparison.
Subjective Data
-
Date of Service:
Date of Service: September 05, 2023
Chief Complaint: Pulmonary Follow Up and Dyspnea Follow Up
Subjective:
No new symptoms from the pulmonary perspective
Sitting out of bed comfortably.
Most of the symptoms are GI in origin
Review of Systems
General: Fever (n)
Cardiopulmonary: Dyspnea (none at rest) and Cough (Chronic)
GI: Abdominal Pain (n) and Nausea (n)
Objective Data
Data Reviewed
Vital Signs / I&O / Oxygen:
Vital Signs
Temp Pulse Resp BP Pulse Ox
99.1 F 72 14 124/73 97
09/05/23 08:00 09/05/23 08:13 09/05/23 08:13 09/05/23 08:00 09/05/23 08:00
Intake and Output
09/04/23 09/05/23 09/06/23
06:59 06:59 06:59
Intake Total 1110 / 1110
Output Total 2200 / 2200 1500 / 1500
Balance -1090 / -1090 -1500 / -1500
SaO2 97
Nasal Cannula flow liters per 3
minute
Physical Exam
General: Comfortable and Other (Mild kyphoscoliosis)
HEENT: Normocephalic, Anicteric and Moist Mucous Membranes
Cardiovascular: S1-S2, Regular Rhythm, Murmur (n), Peripheral Edema (tr) and Other (Mild drainage, lower extremities)
Respiratory: Wheeze (mild with forced expiration), Crackles (Few at left base-chornic), Rhonchi (negative), Non-Labored Respirations and Stridor (negative)
GI: Soft, Non Distended, Non Tender and Normal Bowel Sounds
Neurology: Awake, Alert and No Motor Deficits
Skin: Good Color, Cyanosis (n) and Jaundice (n)
Labs/Micro/Reports
Lab Data
09/05/23 08:11
09/05/23 08:11
Microbiology
08/22/23 09:56 Bronch Left Upper Lobe Acid Fast Bacilli Smear - Preliminary
08/22/23 09:56 Bronch Left Upper Lobe Acid Fast Bacilli Culture - Preliminary
Acid fast bacilli
M. avium-intracellular complex
08/22/23 09:56 Bronch Left Lower Lobe Acid Fast Bacilli Smear - Preliminary
08/22/23 09:56 Bronch Left Lower Lobe Acid Fast Bacilli Culture - Preliminary
Acid fast bacilli
08/22/23 09:56 Bronch Left Lower Lobe Specimen Source - Final
08/22/23 09:56 Bronch Left Lower Lobe Mycobacterium tuberculosis DNA (PCR - Final
08/22/23 09:56 Bronch Left Lower Lobe M. tuberculosis Rifampin (PCR) - Final
08/22/23 09:56 Bronch Left Lower Lobe M. tuberculosis Complex Interpretat - Final
08/22/23 13:56 Bronch Left Lower Lobe Fungus Mold Identification - Final
Clavispora lusitaniae
[2023-09-05 16:00] VITALS: BP 122/67
--- NOTE | 2023-09-05 16:59 | W.PN.HOSP.TC ---
Today's Communication/Plan
-
Please see below
HSV in anal,rectal biopsy
Valacyclovir started
Monitor genitourinary bleeding
Assessment / Plan
Assessment / Plan
Physical Exam
Physical Exam was not performed as patient was in the restroom at the time of attempted patient encounter.

CT Head (as per radiologist's report) without IV contrast appreciated No acute intracranial abnormality
CT Chest W/o Iv Contrast (as per radiologist's report) appreciated Left base consolidation and/or atelectasis, small amount of right base atelectasis with shift of the mediastinum toward the left. Limited exam without IV contrast. No discrete
mediastinal or hilar mass identified however repeat imaging with IV contrast after treatment was recommended to exclude an occult process. Small bibasilar pleural effusions. Small to moderate amount of pericardial effusion
ECHO (as per media arts professor's report) appreciated
Normal biventricular size and systolic function without regional wall motion
abnormality.
No significant valvular disease.
No prior study available for comparison
Assessment/Plan
72 y/o female with complicated history including, but not limited to pAfib COPD Asthma Hypothyroidism Monoclonal B-cell Lymphocytosis Hypogammaglobulinemia intolerant to IgG infusion Arthritis p/w weakness confusion encephalopathy COPD exacerbation
PNA Hyponatremia Acute Kidney Injury persistent orthostatic hypotension. Since improved, hospitalization prolonged due to progressive anemia unclear source. Pending EGD rectal exam under anesthesia.
Symptomatic Hypovolemic Hyponatremia related to over-diuresis. Was feeling weak, unable to walk and confused
- Metolazone discontinued
- Lasix reduced to 40 mg daily, continued for Lower ext swelling weeping likely chronic lymphedema (outpatient lymphedema clinic recommended)
- Celebrex initially held, was previously resumed as below, and placed on hold with worsening anemia and persistent rectal bleeding last dose 08/29 in AM
- IVF completed
- Na improved 130s
Osteoarthritis
-Sees soil analyst Dr. Colón outpatient at [place], being worked up for inflammatory arthritis
-Consulted rheumatology, recommendations appreciated
-Spoke with Dr. Robert Hayward (soil analyst) over the phone on 09/03/23 -- discussed case with him -- he recommended 3000 mg Tylenol total daily dose to be given every day for now and then if the pain doesn't improve, then call rheumatology
again
-Dr. Hayward mentioned he will update patient's soil analyst Dr. Colón
Acute Confusion/Encephalopathy - Resolved
Generalized Weakness Below Baseline
Left Lower Lobe Consolidation on CT Imaging
Left Lower Lobe Atelectasis
Suspected COPD Exacerbation
Cough, Rhonchi
AFB smears positive
-UA (urine culture with no growth), Influenza (negative), COVID (negative), Ammonia (low), Coagulation Studies (okay), Serum osmoles (okay), Blood cultures (no growth to date), TSH (low but T4 wnl - outpatient follow up), Vitamin B12 (non-deficient)
-Cortisol (in the morning) was low at 1.3 -- likely suppression d/t steroids
-CT Head unremarkable
-Thiamine 100 mg PO daily
-Follow-up outpatient as per Infectious Disease in latest by mid-October 2023, for positive AFB smears
Small bibasilar pleural effusions
Small to moderate amount of pericardial effusion
-Cardiology consult appreciated
-Echocardiogram ordered, results are above
-On echo, pericardial effusion is trivial
Orthostatic Hypotension
Dizziness/Lightheadedness on Standing
-patient not tolerating abd binder, has been using knee high TEDs only
-cardio consult appreciated, midodrine increased to 10 mg TID, cardizem and lasix discontinued (lasix later resumed reduced dose for lymphedema as above), LE compression NEO bandages applied
Bright red blood through vagina and rectal areas - recurrence on September 05, 2023
Bright Red Blood Per Rectum on 08/21/23
Hemorrhoids
Anal Ulcer
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
Same organism recovered from [facility].
-Monitor Hgb transfuse goal Hgb>7, pretreat with tylenol and benadryl given hx transfusion rxn hives, use washed red cells given hx hypogammaglobulinemia
-outpatient OBGYN follow up
GI eval appreciated Colonoscopy performed 08/27
� � � � � � � � � � � '- Non-bleeding internal and external hemorrhoids.
�� � � � � � � � � � � - Diverticulosis in the entire examined colon.
�� � � � � � � � � � � - The examination was otherwise normal.
�� � � � � � � � � � � - One 4 mm polyp in the descending colon, removed with
�� � � � � � � � � � � a jumbo cold forceps. Resected and retrieved.
�� � � � � � � � � � � - One 8 mm polyp in the ascending colon, removed with
�� � � � � � � � � � � a hot snare. Resected and retrieved.'
GI eval appreciated upper endoscopy performed 09/01
'Patient had 2 small angioectasias in the small bowel
which can contribute to bleeding.
- Esophageal plaques were found, consistent with
candidiasis.
- 3 cm hiatal hernia.
- Normal stomach.
- Two angioectasias in the duodenum. Treated with
argon plasma coagulation (APC). Clip was placed over
the one in the 2nd portion.
- No specimens collected.
Continue fluconazole x 14 days to treat the esophageal candidiasis above.
Bleeding and anemia persisted worsened
Proton pump inhibitor PO daily while inpatient, then ok for as needed.
CTA abd pelvis appreciated no active bleeding
flex sig performed 08/29 anal fissure and hemorrhoids noted
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
findings could be related to immunosuppression
Continue Valacyclovir x 10 days through 09/14/23.
CRS on 09/04/23 performed again rectal exam under anesthesia, rigid proctosigmoidoscopy, suture of small rectal ulcer, Botox chemodenervation
Continue Calmol 4 suppositories 4 times daily, and fiber supplementation, and daily sitz baths
Continue nifedipine with lidocaine twice daily if patient finds it beneficial
Normocytic Anemia
Anemia of Chronic Disease
Patient reported remote history adverse rxn blood transfusion hives all over
Monoclonal B cell lymphocytosis
Immunosuppressed with undetectable IgG and IgA levels
-Iron Studies appreciated AOCD with Iron level wnl
-Vit B12 non-deficient
-Hematology Eval Appreciated
-September 01, 2023: on this date, patient preferred to have transfusion done (prior to EUA above) when we can give premeds and observe closely. Okay for leukoreduced and irradiated PRBCs today: Tylenol 650 mg PO, Benadryl 50 mg IV, Pepcid 20 mg IV,
Solucortef 100 mg IV (in addition to the steroids she is already getting). Give irradiated due to profound immunosuppression; washed PRBC's would be ideal to give but these need to come from [place] and would not be available for at least a day or
two.
History of hypogammaglobulinemia Suspected to be related to underlying lymphoproliferative disorder.
Intolerant to IVIg transfusions in the past.
Low threshold for abx initiation if new fevers or infectious symptoms
confirmed IgA IgG IgM deficient 08/26
Hypokalemia resolved at this time
-monitor and replete as necessary
Chronic dean catheter, requires Flomax
Recent Urethral Bleeding from a Urinary Catheter
Uretheral Prolapse
Bladder Spasms
Reported urinary clots
-Urology consult appreciated, cont outpt follow up with her urologist at [facility]
-Suspected atrophic vaginitis, Estrace cream started, vaginal bleeding since resolved, outpt obgyn follow up
Severe COPD
Prior history of severe persistent asthma
Chronic Hypoxic Respiratory Failure
Acute on chronic SOB due to recent episodes of strep PNA followed by COVID with deconditioning and CHF
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
Left Lower Lobe PNA , suspected RODRIGUEZ coinfection likely present on admission
-Recent admissions for Strep pneumonia and COVID
-Patient alternates 6 weeks coarse of doxycycline and Ceftin - Currently on doxycycline
-Switched to prednisone taper from Dexamethasone IV - as per pulmonary. Decrease Prednisone by 10 mg every 5 days, should be discharged on 10 mg until seen in pulmonary office.
-Continue Daliresp
-Continue fluticasone and salmeterol
-Continue levalbuterol prn
-Pulm eval appreciated
-Bronchoscopy performed on 08/22/23: follow bronchoalveolar lavage and cultures results acid fast bacilli positive pending speciation, PCR for TB however neg
-Infectious Disease consulted appreciated, Cefepime converted to cefdinir, no need for isolation/quarantine at this time. Cefdinir completed 08/29
Paroxysmal Atrial Fibrillation s/p Ablation
-Patient is not on anticoagulation as outpatient
-Continue diltiazem discontinued as above
Sacrum Healing Stage 3 pressure injury, POA
-Continue wound care
Anxiety/Depression
-Continue Duloxetine and alprazolam
Hypothyroidism
-Continue levothyroxine
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
-Continue gabapentin and duloxetine
-Gabapentin at max dose 1800 mg at 3 divided doses for her Cr clearance, transition to pregabalin offered patient however declines at this time
Arthritis
-home celecoxib resumed 08/25, discontinued 08/29 d/t worsening anemia persistent rectal bleed,
-celecoxib subsequently substituted with tramadol prn ordered, appears to be tolerating well at this time however symptoms ('locking joints') remain uncontrolled
-consulted Rheumatology -- spoke with rheumatology over the phone on 09/03/23 AM -- see above
Environment/Seasonal Allergies
-Continue fexofenadine and montelukast
History of Steroid-Induced Myopathy
PT/OT appreciated HH
DVT proph: (Previously Lovenox discontinued due to Bleeding as above) TERRI stockings, SCDs
GI ppx: protonix
Code Status: DNR/DNI
Anticipated Discharge: > 48 hours
Subjective/Interval History
-
Date of Service: September 05, 2023
Patient was present in the restroom at the time of attempted patient encounter. Case discussed with patient's nurse and chart reviewed.
Objective Data
-
Labs:
Laboratory Results
09/05/23
08:11
WBC 12.1 H
Hgb 10.0 L
Hct 30.1 L
Plt Count 230
Sodium 137
Potassium 3.8
Chloride 100
Carbon Dioxide 34 H
BUN 15
Creatinine 0.6
Glucose 93
Calcium 8.5
Vital Signs:
Vital Signs
Temp Pulse Resp BP Pulse Ox
99.1 F 72 14 124/73 97
09/05/23 08:00 09/05/23 08:13 09/05/23 08:13 09/05/23 08:00 09/05/23 08:00
I&O
09/04/23 09/05/23 09/06/23
06:59 06:59 06:59
Intake Total 1110 / 1110
Output Total 2200 / 2200 1500 / 1500
Balance -1090 / -1090 -1500 / -1500
[2023-09-05] MEDS: VITAMIN C 500 MG PO (17:48)
[2023-09-05 18:53] LABS: Urine Albumin Negative (Neg - Trace); Urine Bilirubin 1+ (Negative); Urine Character Clear (Clear); Urine Color Yellow; Urine Glucose 1+ (Negative); Urine Ketone Negative (Negative); Urine Leukocyte Negative (Negative); Urine Nitrite Positive (Negative); Urine Occult Blood Negative (Negative); Urine Urobilinogen Negative (Neg - 1+)
[2023-09-05 19:22] LABS: Urine Bacteria Moderate (Negative); Urine Red Blood Cell 0-2 /HPF (0-2); Urine White Cell 0-2 /HPF (0-5)
[2023-09-05] MEDS: CYMBALTA DELAYED RELEASE 60 MG PO (20:29)
[2023-09-05] MEDS: HYDROCORTISONE 2.5% CREAM TOPICAL (20:34)
[2023-09-05] MEDS: SINGULAIR 10 MG PO (22:21)
[2023-09-05] MEDS: ESTRACE 0.01% VAGINAL CREAM 1 APPLIC VAG (22:25)
[2023-09-05] MEDS: DALIRESP 500 MCG PO (22:29)
[2023-09-05 23:00] VITALS: BP 131/75
[2023-09-06] MEDS: XOPENEX 0.63 MG INHALANT SOLUTION 0.630000000000000004 MG INH ×5 (00:05→23:48)
[2023-09-06] MEDS: ULTRAM 50 MG PO ×3 (00:23→13:51)
[2023-09-06] MEDS: TESSALON PERLES 100 MG PO ×2 (00:23→06:11)
[2023-09-06] MEDS: XANAX 0.5 MG PO (00:23)
[2023-09-06 06:00] VITALS: BMI 21.2
[2023-09-06] MEDS: SYNTHROID 125 MCG PO (06:04)
[2023-09-06] MEDS: NEURONTIN 600 MG PO ×3 (06:05→22:20)
[2023-09-06] MEDS: TYLENOL 1000 MG PO ×3 (06:05→22:22)
[2023-09-06] MEDS: MIRALAX 17 GRAMS PO ×2 (06:07→06:12)
[2023-09-06 07:19] VITALS: BP 135/89
[2023-09-06] MEDS: NON-FORMULARY ITEM 1 UNIT INH ×2 (07:40→20:04)
[2023-09-06] MEDS: NON-FORMULARY ITEM 2 INH INH ×2 (07:40→20:04)
[2023-09-06] MEDS: FLOMAX 0.800000000000000044 MG PO (08:47)
[2023-09-06] MEDS: VITAMIN B1 100 MG PO (08:47)
[2023-09-06] MEDS: KCL 20 MEQ PO (08:47)
[2023-09-06] MEDS: Pyridium 100 MG PO ×3 (08:48→22:17)
[2023-09-06] MEDS: PROTONIX 40 MG PO (08:48)
[2023-09-06] MEDS: LASIX 40 MG PO (08:48)
[2023-09-06] MEDS: OSCAL 500 + D 500 MG PO ×2 (08:48→20:32)
[2023-09-06] MEDS: VALTREX 1000 MG PO ×2 (08:48→20:32)
[2023-09-06] MEDS: DELTASONE 30 MG PO (08:48)
[2023-09-06] MEDS: VITAMIN B-12 500 MCG PO (08:49)
[2023-09-06] MEDS: DIFLUCAN 200 MG PO (08:50)
[2023-09-06] MEDS: NON-FORMULARY ITEM 2 SPRAY NASAL ×2 (08:51→20:30)
[2023-09-06] MEDS: NON-FORMULARY ITEM 1 UNIT PO (08:51)
[2023-09-06] MEDS: CYMBALTA DELAYED RELEASE 30 MG PO (08:52)
[2023-09-06] MEDS: NON-FORMULARY ITEM 1 SPRAY NASAL (08:52)
[2023-09-06] MEDS: HYDROCORTISONE 2.5% CREAM 1 APPLIC TOPICAL ×2 (08:52→20:31)
[2023-09-06] MEDS: METAMUCIL, KONSYL 1 PACKET PO (08:53)
[2023-09-06] MEDS: ProAmatine 10 MG PO ×3 (08:55→17:23)
[2023-09-06 08:56] VITALS: BP 110/70
[2023-09-06 10:11] LABS: % Basophils 0.1 % (0-2); % Eosinophils 0.3 % (0-6); % Immature Granulocytes 2.1 % (0-0.5); % Lymphocytes 36.3 % (20.5-51.1); % Monocytes 5.4 % (1.7-9.3); % Neutrophils 55.8 % (42.2-75.2); Absolute Immature Granulocytes 0.2 10^3/uL (0-0.05); Absolute Lymphocytes 4.2 10^3/uL (1.2-3.4); Absolute Monocytes 0.6 10^3/uL (0.1-0.6); Absolute Neutrophils 6.5 10^3/uL (1.4-6.5); Hematocrit 28.7 % (37.0-47.0); Hemoglobin 9.7 g/dL (12.0-16.0); Mean Corp Hgb Conc. 33.8 g/dL (33.0-37.0); Mean Corpuscular Hgb 33.1 pg (27.0-31.0); Mean Platelet Volume 8.7 fL (7.4-10.4); Nucleated Red Blood Cells % 0.2 %; Platelet Count 197 10^3/uL (130-400); Red Blood Cell Count 2.93 10^6/uL (4.20-5.40); Red Cell Dist. Width 16.5 % (11.5-14.5); White Blood Cell Count 11.6 10^3/uL (4.8-10.8)
[2023-09-06 10:54] LABS: Blood Urea Nitrogen 14 mg/dl (7-17); Calcium 8.6 mg/dl (8.4-10.2); Carbon Dioxide 33 mmol/L (22-30); Chloride 99 mmol/L (98-107); Estimated Creatinine Clearance 74 ml/min; Glucose 100 mg/dl (70-99); Magnesium 2.4 mg/dl (1.6-2.3); Phosphorus 2.8 mg/dl (2.5-4.5); Potassium 4.2 mmol/L (3.5-5.1); Sodium 133 mmol/L (135-145); eGFR > 60.00
[2023-09-06] MEDS: TYLENOL PO (13:51)
[2023-09-06 15:28] VITALS: BP 92/57
[2023-09-06] MEDS: VITAMIN C 500 MG PO (17:23)
[2023-09-06] MEDS: VITAMIN D3 (cholecalciferol) 25 MCG PO (17:25)
--- NOTE | 2023-09-06 17:37 | W.PN.HOSP.TC ---
Today's Communication/Plan
-
Patient would like to following to improve prior to discharge:
1) 'Swimming pool becoming empty' feeling on standing (associated with orthostatic hypotension) -- but cannot wear abdominal binders due to significant abdominal distention
2) No further rectal bleeding for at least a few days should be achieved
3) She would like a reliable PCP to go to after discharge
Assessment / Plan
Assessment / Plan
Physical Exam
General: Not in acute distress
HEENT: Normocephalic, Atraumatic
Respiratory: Scattered wheezes and some crackles
Cardiac: Regular Rhythm and S1/S2
GI: Soft, Nontender and Nondistended. Positive bowel sounds.
Musculoskeletal: No Cyanosis and No Edema.

CT Head (as per radiologist's report) without IV contrast appreciated No acute intracranial abnormality
CT Chest W/o Iv Contrast (as per radiologist's report) appreciated Left base consolidation and/or atelectasis, small amount of right base atelectasis with shift of the mediastinum toward the left. Limited exam without IV contrast. No discrete
mediastinal or hilar mass identified however repeat imaging with IV contrast after treatment was recommended to exclude an occult process. Small bibasilar pleural effusions. Small to moderate amount of pericardial effusion
ECHO (as per service sprinkler helper's report) appreciated
Normal biventricular size and systolic function without regional wall motion
abnormality.
No significant valvular disease.
No prior study available for comparison
Assessment/Plan
72 y/o female with complicated history including, but not limited to pAfib COPD Asthma Hypothyroidism Monoclonal B-cell Lymphocytosis Hypogammaglobulinemia intolerant to IgG infusion Arthritis p/w weakness confusion encephalopathy COPD exacerbation
PNA Hyponatremia Acute Kidney Injury persistent orthostatic hypotension. Since improved, hospitalization prolonged due to progressive anemia unclear source. Pending EGD rectal exam under anesthesia.
Symptomatic Hypovolemic Hyponatremia related to over-diuresis. Was feeling weak, unable to walk and confused
- Metolazone discontinued
- Lasix reduced to 40 mg daily, continued for Lower ext swelling weeping likely chronic lymphedema (outpatient lymphedema clinic recommended)
- Celebrex initially held, was previously resumed as below, and placed on hold with worsening anemia and persistent rectal bleeding last dose 08/29 in AM
- IVF completed
- Na improved to 130s
Osteoarthritis
-Sees relations specialist Dr. Colón outpatient at [place], being worked up for inflammatory arthritis
-Consulted rheumatology, recommendations appreciated
-Spoke with Dr. Robert Hayward (relations specialist) over the phone on 09/03/23 -- discussed case with him -- he recommended 3000 mg Tylenol total daily dose to be given every day for now and then if the pain doesn't improve, then call rheumatology
again
-Dr. Hayward mentioned he will update patient's relations specialist Dr. Colón
Acute Confusion/Encephalopathy - Resolved
Generalized Weakness Below Baseline
Left Lower Lobe Consolidation on CT Imaging
Left Lower Lobe Atelectasis
Suspected COPD Exacerbation
Cough, Rhonchi
AFB smears positive
-UA (urine culture with no growth), Influenza (negative), COVID (negative), Ammonia (low), Coagulation Studies (okay), Serum osmoles (okay), Blood cultures (no growth to date), TSH (low but T4 wnl - outpatient follow up), Vitamin B12 (non-deficient)
-Cortisol (in the morning) was low at 1.3 -- likely suppression d/t steroids
-CT Head unremarkable
-Thiamine 100 mg PO daily
-Follow-up outpatient as per Infectious Disease in latest by mid-October 2023, for positive AFB smears
Small bibasilar pleural effusions
Small to moderate amount of pericardial effusion
-Cardiology consult appreciated
-Echocardiogram ordered, results are above
-On echo, pericardial effusion is trivial
Orthostatic Hypotension
Dizziness/Lightheadedness on Standing
-patient not tolerating abd binder, has been using knee high TEDs only
-cardio consult appreciated, midodrine increased to 10 mg TID, cardizem and lasix discontinued (lasix later resumed reduced dose for lymphedema as above), LE compression NEO bandages applied
Bright red blood through vagina and rectal areas - recurrence on September 05, 2023
Bright Red Blood Per Rectum on 08/21/23
Hemorrhoids
Anal Ulcer
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
Same organism recovered from [facility].
-Monitor Hgb transfuse goal Hgb>7, pretreat with tylenol and benadryl given hx transfusion rxn hives, use washed red cells given hx hypogammaglobulinemia
-outpatient OBGYN follow up
GI eval appreciated Colonoscopy performed 08/27
� � � � � � � � � � � '- Non-bleeding internal and external hemorrhoids.
�� � � � � � � � � � � - Diverticulosis in the entire examined colon.
�� � � � � � � � � � � - The examination was otherwise normal.
�� � � � � � � � � � � - One 4 mm polyp in the descending colon, removed with
�� � � � � � � � � � � a jumbo cold forceps. Resected and retrieved.
�� � � � � � � � � � � - One 8 mm polyp in the ascending colon, removed with
�� � � � � � � � � � � a hot snare. Resected and retrieved.'
GI eval appreciated upper endoscopy performed 09/01
'Patient had 2 small angioectasias in the small bowel
which can contribute to bleeding.
- Esophageal plaques were found, consistent with
candidiasis.
- 3 cm hiatal hernia.
- Normal stomach.
- Two angioectasias in the duodenum. Treated with
argon plasma coagulation (APC). Clip was placed over
the one in the 2nd portion.
- No specimens collected.
Continue fluconazole x 14 days to treat the esophageal candidiasis above.
Bleeding and anemia persisted worsened
Proton pump inhibitor PO daily while inpatient, then ok for as needed.
CTA abd pelvis appreciated no active bleeding
flex sig performed 08/29 anal fissure and hemorrhoids noted
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
findings could be related to immunosuppression
Continue Valacyclovir x 10 days through 09/14/23.
CRS on 09/04/23 performed again rectal exam under anesthesia, rigid proctosigmoidoscopy, suture of small rectal ulcer, Botox chemodenervation
Continue Calmol 4 suppositories 4 times daily, and fiber supplementation, and daily sitz baths
Continue nifedipine with lidocaine twice daily if patient finds it beneficial
Normocytic Anemia
Anemia of Chronic Disease
Patient reported remote history adverse rxn blood transfusion hives all over
Monoclonal B cell lymphocytosis
Immunosuppressed with undetectable IgG and IgA levels
-Iron Studies appreciated AOCD with Iron level wnl
-Vit B12 non-deficient
-Hematology Eval Appreciated
-September 01, 2023: on this date, patient preferred to have transfusion done (prior to EUA above) when we can give premeds and observe closely. Okay for leukoreduced and irradiated PRBCs today: Tylenol 650 mg PO, Benadryl 50 mg IV, Pepcid 20 mg IV,
Solucortef 100 mg IV (in addition to the steroids she is already getting). Give irradiated due to profound immunosuppression; washed PRBC's would be ideal to give but these need to come from [place] and would not be available for at least a day or
two.
History of hypogammaglobulinemia Suspected to be related to underlying lymphoproliferative disorder.
Intolerant to IVIg transfusions in the past.
Low threshold for abx initiation if new fevers or infectious symptoms
confirmed IgA IgG IgM deficient 08/26
Hypokalemia resolved at this time
-monitor and replete as necessary
Chronic dean catheter, requires Flomax
Recent Urethral Bleeding from a Urinary Catheter
Uretheral Prolapse
Bladder Spasms
Reported urinary clots
-Urology consult appreciated, cont outpt follow up with her urologist at [facility]
-Suspected atrophic vaginitis, Estrace cream started, vaginal bleeding since resolved, outpt obgyn follow up
Severe COPD
Prior history of severe persistent asthma
Chronic Hypoxic Respiratory Failure
Acute on chronic SOB due to recent episodes of strep PNA followed by COVID with deconditioning and CHF
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
Left Lower Lobe PNA , suspected RODRIGUEZ coinfection likely present on admission
-Recent admissions for Strep pneumonia and COVID
-Patient alternates 6 weeks coarse of doxycycline and Ceftin - Currently on doxycycline
-Switched to PO prednisone taper from Dexamethasone IV - as per pulmonary. Decrease Prednisone by 10 mg every 5 days, should be discharged on 10 mg until seen in pulmonary office.
-Continue Daliresp
-Continue fluticasone and salmeterol
-Continue levalbuterol prn
-Pulm eval appreciated
-Bronchoscopy performed on 08/22/23: follow bronchoalveolar lavage and cultures results acid fast bacilli positive pending speciation, PCR for TB however neg
-Infectious Disease consulted appreciated, Cefepime converted to cefdinir, no need for isolation/quarantine at this time. Cefdinir completed 08/29
Paroxysmal Atrial Fibrillation s/p Ablation
-Patient is not on anticoagulation as outpatient
-Continue diltiazem discontinued as above
Sacrum Healing Stage 3 pressure injury, POA
-Continue wound care
Anxiety/Depression
-Continue Duloxetine and alprazolam
Hypothyroidism
-Continue levothyroxine
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
-Continue gabapentin and duloxetine
-Gabapentin at max dose 1800 mg at 3 divided doses for her Cr clearance, transition to pregabalin offered patient however declines at this time
Arthritis
-home celecoxib resumed 08/25, discontinued 08/29 d/t worsening anemia persistent rectal bleed,
-celecoxib subsequently substituted with tramadol prn ordered, appears to be tolerating well at this time however symptoms ('locking joints') remain uncontrolled
-consulted Rheumatology -- spoke with rheumatology over the phone on 09/03/23 AM -- see above
Environment/Seasonal Allergies
-Continue fexofenadine and montelukast
History of Steroid-Induced Myopathy
PT/OT appreciated HH
DVT proph: (Previously Lovenox discontinued due to Bleeding as above) TERRI burkettjane, SCDs
GI ppx: protonix
Code Status: DNR/DNI
Anticipated Discharge: > 48 hours
Subjective/Interval History
-
Date of Service: September 06, 2023
Patient was seen and examined. She reported that has been continuing to feel that when she stands up it feels like a swimming pool was becoming empty, she had a rectal bleed yesterday, and she wanted to see a good primary care doctor once she is
discharged.
Objective Data
-
Labs:
Laboratory Results
09/06/23
09:56
WBC 11.6 H
Hgb 9.7 L
Hct 28.7 L
Plt Count 197
Sodium 133 L
Potassium 4.2
Chloride 99
Carbon Dioxide 33 H
BUN 14
Creatinine 0.5 L
Glucose 100 H
Calcium 8.6
Vital Signs:
Vital Signs
Temp Pulse Resp BP Pulse Ox
97.4 F 96 18 92/57 95
09/06/23 15:28 09/06/23 15:28 09/06/23 15:28 09/06/23 15:28 09/06/23 14:58
I&O
09/05/23 09/06/23 09/07/23
06:59 06:59 06:59
Intake Total 1080 / 1080
Output Total 1500 / 1500 2224
Balance -1500 / -1500 -1145 / -1145
[2023-09-06] MEDS: CYMBALTA DELAYED RELEASE 60 MG PO (20:30)
[2023-09-06] MEDS: DALIRESP 500 MCG PO (22:17)
[2023-09-06] MEDS: SINGULAIR 10 MG PO (22:17)
[2023-09-06] MEDS: ESTRACE 0.01% VAGINAL CREAM 1 APPLIC VAG (22:22)
[2023-09-06 23:00] VITALS: BP 118/76
[2023-09-07] MEDS: XANAX 0.5 MG PO (00:04)
[2023-09-07] MEDS: TESSALON PERLES 100 MG PO ×3 (00:04→23:04)
[2023-09-07] MEDS: ULTRAM 50 MG PO ×4 (00:05→18:00)
[2023-09-07 06:00] VITALS: BMI 20.8
[2023-09-07] MEDS: SYNTHROID 125 MCG PO (06:25)
[2023-09-07] MEDS: NEURONTIN 600 MG PO ×3 (06:25→23:03)
[2023-09-07] MEDS: TYLENOL 1000 MG PO ×3 (06:25→23:03)
[2023-09-07 07:07] VITALS: BP 126/80
[2023-09-07] MEDS: NON-FORMULARY ITEM 2 INH INH ×2 (07:35→21:07)
[2023-09-07] MEDS: NON-FORMULARY ITEM 1 UNIT INH ×2 (07:35→21:07)
[2023-09-07] MEDS: XOPENEX 0.63 MG INHALANT SOLUTION 0.630000000000000004 MG INH ×3 (07:35→21:07)
[2023-09-07] MEDS: NON-FORMULARY ITEM 1 UNIT PO (08:21)
[2023-09-07] MEDS: NON-FORMULARY ITEM 1 SPRAY NASAL (08:21)
[2023-09-07] MEDS: NON-FORMULARY ITEM 2 SPRAY NASAL ×2 (08:21→20:39)
[2023-09-07] MEDS: CYMBALTA DELAYED RELEASE 30 MG PO (08:23)
[2023-09-07] MEDS: VITAMIN B1 100 MG PO (08:23)
[2023-09-07] MEDS: Pyridium 100 MG PO ×3 (08:23→23:03)
[2023-09-07] MEDS: VALTREX 1000 MG PO ×2 (08:23→20:41)
[2023-09-07] MEDS: FLOMAX 0.800000000000000044 MG PO (08:23)
[2023-09-07] MEDS: KCL 20 MEQ PO (08:23)
[2023-09-07] MEDS: LASIX 40 MG PO (08:24)
[2023-09-07] MEDS: DELTASONE 30 MG PO (08:24)
[2023-09-07] MEDS: OSCAL 500 + D 500 MG PO ×2 (08:25→20:41)
[2023-09-07] MEDS: DIFLUCAN 200 MG PO (08:25)
[2023-09-07] MEDS: VITAMIN B-12 500 MCG PO (08:25)
[2023-09-07] MEDS: ProAmatine 10 MG PO ×3 (08:34→17:59)
[2023-09-07] MEDS: PROTONIX 40 MG PO (08:40)
[2023-09-07] MEDS: METAMUCIL, KONSYL PO (08:40)
[2023-09-07 09:08] LABS: % Basophils 0.2 % (0-2); % Eosinophils 0.6 % (0-6); % Immature Granulocytes 2.4 % (0-0.5); % Lymphocytes 39.7 % (20.5-51.1); % Monocytes 4.6 % (1.7-9.3); % Neutrophils 52.5 % (42.2-75.2); Absolute Eosinophils 0.1 10^3/uL (0-0.7); Absolute Immature Granulocytes 0.3 10^3/uL (0-0.05); Absolute Monocytes 0.6 10^3/uL (0.1-0.6); Absolute Neutrophils 6.6 10^3/uL (1.4-6.5); Hematocrit 29.6 % (37.0-47.0); Hemoglobin 9.9 g/dL (12.0-16.0); Mean Corp Hgb Conc. 33.4 g/dL (33.0-37.0); Mean Corpuscular Hgb 33.1 pg (27.0-31.0); Mean Platelet Volume 9.4 fL (7.4-10.4); Nucleated Red Blood Cells % 0.2 %; Platelet Count 204 10^3/uL (130-400); Red Blood Cell Count 2.99 10^6/uL (4.20-5.40); Red Cell Dist. Width 16.6 % (11.5-14.5); White Blood Cell Count 12.6 10^3/uL (4.8-10.8)
[2023-09-07 09:42] LABS: Blood Urea Nitrogen 16 mg/dl (7-17); Calcium 8.8 mg/dl (8.4-10.2); Carbon Dioxide 32 mmol/L (22-30); Chloride 97 mmol/L (98-107); Estimated Creatinine Clearance 74 ml/min; Glucose 111 mg/dl (70-99); Magnesium 2.4 mg/dl (1.6-2.3); Potassium 4.2 mmol/L (3.5-5.1); Sodium 134 mmol/L (135-145); eGFR > 60.00
[2023-09-07] MEDS: HYDROCORTISONE 2.5% CREAM 1 APPLIC TOPICAL ×2 (12:44→20:40)
[2023-09-07 15:04] VITALS: BP 111/67
--- NOTE | 2023-09-07 17:15 | W.PN.HOSP.TC ---
Today's Communication/Plan
-
Still having rectal bleeding
Will need re-evaluation by colorectal surgery and gastroenterology
Patient would also like to following to improve prior to discharge:
1) 'Swimming pool becoming empty' feeling on standing (associated with orthostatic hypotension) -- but cannot wear abdominal binders due to significant abdominal distention
2) No further rectal bleeding for at least a few days - should be achieved
3) She would like a reliable PCP to go to after discharge
Assessment / Plan
Assessment / Plan
Physical Exam
General: Not in acute distress
HEENT: Normocephalic, Atraumatic
Respiratory: Scattered wheezes and some crackles
Cardiac: Regular Rhythm and S1/S2
GI: Soft, Nontender and Nondistended. Positive bowel sounds.
Musculoskeletal: No Cyanosis and No Edema.

CT Head (as per radiologist's report) without IV contrast appreciated No acute intracranial abnormality
CT Chest W/o Iv Contrast (as per radiologist's report) appreciated Left base consolidation and/or atelectasis, small amount of right base atelectasis with shift of the mediastinum toward the left. Limited exam without IV contrast. No discrete
mediastinal or hilar mass identified however repeat imaging with IV contrast after treatment was recommended to exclude an occult process. Small bibasilar pleural effusions. Small to moderate amount of pericardial effusion
ECHO (as per supervisor anodizing's report) appreciated
Normal biventricular size and systolic function without regional wall motion
abnormality.
No significant valvular disease.
No prior study available for comparison

Assessment/Plan
72 y/o female with complicated history including, but not limited to pAfib COPD Asthma Hypothyroidism Monoclonal B-cell Lymphocytosis Hypogammaglobulinemia intolerant to IgG infusion Arthritis p/w weakness confusion encephalopathy COPD exacerbation
PNA Hyponatremia Acute Kidney Injury persistent orthostatic hypotension. Since improved, hospitalization prolonged due to progressive anemia unclear source. Pending EGD rectal exam under anesthesia.
Symptomatic Hypovolemic Hyponatremia related to over-diuresis. Was feeling weak, unable to walk and confused
- Metolazone discontinued
- Lasix reduced to 40 mg daily, continued for Lower ext swelling weeping likely chronic lymphedema (outpatient lymphedema clinic recommended)
- Celebrex initially held, was previously resumed as below, and placed on hold with worsening anemia and persistent rectal bleeding last dose 08/29 in AM
- IVF completed
- Na improved to 130s
Osteoarthritis
-Sees flying i instructor Dr. Colón outpatient at [facility], being worked up for inflammatory arthritis
-Consulted rheumatology, recommendations appreciated
-Spoke with Dr. Robert Hayward (flying i instructor) over the phone on 09/03/23 -- discussed case with him -- he recommended 3000 mg Tylenol total daily dose to be given every day for now and then if the pain doesn't improve, then call rheumatology
again
-Dr. Hayward mentioned he will update patient's flying i instructor Dr. Colón
Acute Confusion/Encephalopathy - Resolved
Generalized Weakness Below Baseline
Left Lower Lobe Consolidation on CT Imaging
Left Lower Lobe Atelectasis
Suspected COPD Exacerbation
Cough, Rhonchi
AFB smears positive
-UA (urine culture with no growth), Influenza (negative), COVID (negative), Ammonia (low), Coagulation Studies (okay), Serum osmoles (okay), Blood cultures (no growth to date), TSH (low but T4 wnl - outpatient follow up), Vitamin B12 (non-deficient)
-Cortisol (in the morning) was low at 1.3 -- likely suppression d/t steroids
-CT Head unremarkable
-Thiamine 100 mg PO daily
-Follow-up outpatient as per Infectious Disease in latest by mid-October 2023, for positive AFB smears
Small bibasilar pleural effusions
Small to moderate amount of pericardial effusion
-Cardiology consult appreciated
-Echocardiogram ordered, results are above
-On echo, pericardial effusion is trivial
Orthostatic Hypotension
Dizziness/Lightheadedness on Standing
-patient not tolerating abd binder, has been using knee high TEDs only
-cardio consult appreciated, midodrine increased to 10 mg TID, cardizem and lasix discontinued (lasix later resumed reduced dose for lymphedema as above), LE compression NEO bandages applied
Bright red blood through vagina and rectal areas - recurrence on September 05, 2023
Bright Red Blood Per Rectum on 08/21/23
Hemorrhoids
Anal Ulcer
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
Same organism recovered from [facility].
-Monitor Hgb transfuse goal Hgb>7, pretreat with tylenol and benadryl given hx transfusion rxn hives, use washed red cells given hx hypogammaglobulinemia
-outpatient OBGYN follow up
GI eval appreciated Colonoscopy performed 08/27
� � � � � � � � � � � '- Non-bleeding internal and external hemorrhoids.
�� � � � � � � � � � � - Diverticulosis in the entire examined colon.
�� � � � � � � � � � � - The examination was otherwise normal.
�� � � � � � � � � � � - One 4 mm polyp in the descending colon, removed with
�� � � � � � � � � � � a jumbo cold forceps. Resected and retrieved.
�� � � � � � � � � � � - One 8 mm polyp in the ascending colon, removed with
�� � � � � � � � � � � a hot snare. Resected and retrieved.'
GI eval appreciated upper endoscopy performed 09/01
'Patient had 2 small angioectasias in the small bowel
which can contribute to bleeding.
- Esophageal plaques were found, consistent with
candidiasis.
- 3 cm hiatal hernia.
- Normal stomach.
- Two angioectasias in the duodenum. Treated with
argon plasma coagulation (APC). Clip was placed over
the one in the 2nd portion.
- No specimens collected.
Continue fluconazole x 14 days to treat the esophageal candidiasis above.
Bleeding and anemia persisted worsened
Proton pump inhibitor PO daily while inpatient, then ok for as needed.
CTA abd pelvis appreciated no active bleeding
flex sig performed 08/29 anal fissure and hemorrhoids noted
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
findings could be related to immunosuppression
Continue Valacyclovir x 10 days through 09/14/23.
CRS on 09/04/23 performed again rectal exam under anesthesia, rigid proctosigmoidoscopy, suture of small rectal ulcer, Botox chemodenervation
Continue Calmol 4 suppositories 4 times daily, and fiber supplementation, and daily sitz baths
Continue nifedipine with lidocaine twice daily if patient finds it beneficial
Normocytic Anemia
Anemia of Chronic Disease
Patient reported remote history adverse rxn blood transfusion hives all over
Monoclonal B cell lymphocytosis
Immunosuppressed with undetectable IgG and IgA levels
-Iron Studies appreciated AOCD with Iron level wnl
-Vit B12 non-deficient
-Hematology Eval Appreciated
-September 01, 2023: on this date, patient preferred to have transfusion done (prior to EUA above) when we can give premeds and observe closely. Okay for leukoreduced and irradiated PRBCs today: Tylenol 650 mg PO, Benadryl 50 mg IV, Pepcid 20 mg IV,
Solucortef 100 mg IV (in addition to the steroids she is already getting). Give irradiated due to profound immunosuppression; washed PRBC's would be ideal to give but these need to come from [facility] and would not be available for at least a day or
two.
History of hypogammaglobulinemia Suspected to be related to underlying lymphoproliferative disorder.
Intolerant to IVIg transfusions in the past.
Low threshold for abx initiation if new fevers or infectious symptoms
confirmed IgA IgG IgM deficient 08/26
Hypokalemia resolved at this time
-monitor and replete as necessary
Chronic dean catheter, requires Flomax
Recent Urethral Bleeding from a Urinary Catheter
Uretheral Prolapse
Bladder Spasms
Reported urinary clots
-Urology consult appreciated, cont outpt follow up with her urologist at [facility]
-Suspected atrophic vaginitis, Estrace cream started, vaginal bleeding since resolved, outpt obgyn follow up
Severe COPD
Prior history of severe persistent asthma
Chronic Hypoxic Respiratory Failure
Acute on chronic SOB due to recent episodes of strep PNA followed by COVID with deconditioning and CHF
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
Left Lower Lobe PNA , suspected RODRIGUEZ coinfection likely present on admission
-Recent admissions for Strep pneumonia and COVID
-Patient alternates 6 weeks coarse of doxycycline and Ceftin - Currently on doxycycline
-Switched to PO prednisone taper from Dexamethasone IV - as per pulmonary. Decrease Prednisone by 10 mg every 5 days, should be discharged on 10 mg until seen in pulmonary office.
-Continue Daliresp
-Continue fluticasone and salmeterol
-Continue levalbuterol prn
-Pulm eval appreciated
-Bronchoscopy performed on 08/22/23: follow bronchoalveolar lavage and cultures results acid fast bacilli positive pending speciation, PCR for TB however neg
-Infectious Disease consulted appreciated, Cefepime converted to cefdinir, no need for isolation/quarantine at this time. Cefdinir completed 08/29
Paroxysmal Atrial Fibrillation s/p Ablation
-Patient is not on anticoagulation as outpatient
-Continue diltiazem discontinued as above
Sacrum Healing Stage 3 pressure injury, POA
-Continue wound care
Anxiety/Depression
-Continue Duloxetine and alprazolam
Hypothyroidism
-Continue levothyroxine
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
-Continue gabapentin and duloxetine
-Gabapentin at max dose 1800 mg at 3 divided doses for her Cr clearance, transition to pregabalin offered patient however declines at this time
Arthritis
-home celecoxib resumed 08/25, discontinued 08/29 d/t worsening anemia persistent rectal bleed,
-celecoxib subsequently substituted with tramadol prn ordered, appears to be tolerating well at this time however symptoms ('locking joints') remain uncontrolled
-consulted Rheumatology -- spoke with rheumatology over the phone on 09/03/23 AM -- see above
Environment/Seasonal Allergies
-Continue fexofenadine and montelukast
History of Steroid-Induced Myopathy
PT/OT appreciated HH
DVT proph: (Previously Lovenox discontinued due to Bleeding as above) TERRI stockings, SCDs
GI ppx: protonix
Code Status: DNR/DNI
Anticipated Discharge: > 48 hours
Subjective/Interval History
-
Date of Service: September 07, 2023
Patient was seen and examined. She reports she is still having bleeding from her rectum.
Objective Data
-
Labs:
Laboratory Results
09/07/23
08:14
WBC 12.6 H
Hgb 9.9 L
Hct 29.6 L
Plt Count 204
Sodium 134 L
Potassium 4.2
Chloride 97 L
Carbon Dioxide 32 H
BUN 16
Creatinine 0.6
Glucose 111 H
Calcium 8.8
Vital Signs:
Vital Signs
Temp Pulse Resp BP Pulse Ox
99.1 F 93 18 111/67 93
09/07/23 15:04 09/07/23 15:04 09/07/23 15:04 09/07/23 15:04 09/07/23 15:04
I&O
09/06/23 09/07/23 09/08/23
06:59 06:59 06:59
Intake Total 1080 / 1080
Output Total 2225 / 2225
Balance -1145 / -1145
[2023-09-07] MEDS: VITAMIN C 500 MG PO (17:59)
[2023-09-07] MEDS: VITAMIN D3 (cholecalciferol) 25 MCG PO (18:00)
[2023-09-07] MEDS: CYMBALTA DELAYED RELEASE 60 MG PO (20:39)
[2023-09-07 23:00] VITALS: BP 129/76
[2023-09-07] MEDS: SINGULAIR 10 MG PO (23:03)
[2023-09-07] MEDS: DALIRESP 500 MCG PO (23:03)
[2023-09-07] MEDS: XANAX PO (23:03)
[2023-09-07] MEDS: ESTRACE 0.01% VAGINAL CREAM 1 APPLIC VAG (23:04)
[2023-09-08] MEDS: XANAX 0.5 MG PO (00:04)
[2023-09-08] MEDS: ULTRAM 50 MG PO ×4 (00:04→18:16)
[2023-09-08 06:00] VITALS: BMI 20.8
[2023-09-08] MEDS: TESSALON PERLES 100 MG PO (06:07)
[2023-09-08] MEDS: NEURONTIN 600 MG PO ×3 (06:07→22:58)
[2023-09-08] MEDS: SYNTHROID 112 MCG PO (06:07)
[2023-09-08] MEDS: TYLENOL 1000 MG PO ×3 (06:07→22:57)
[2023-09-08] MEDS: MIRALAX 17 GRAMS PO (06:08)
--- NOTE | 2023-09-08 06:50 | W.PN.HOSP.TC ---
Today's Communication/Plan
-
monitor H&H
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
cardio re-eval orthostatic hypotension
steroid taper
discharge planning
Assessment / Plan
Assessment / Plan
Physical Exam
General: Not in acute distress
HEENT: Normocephalic, Atraumatic
Respiratory: Scattered wheezes and some crackles
Cardiac: Regular Rhythm and S1/S2
GI: Soft, Nontender and Nondistended. Positive bowel sounds.
Musculoskeletal: No Cyanosis and No Edema.

CT Head (as per radiologist's report) without IV contrast appreciated No acute intracranial abnormality
CT Chest W/o Iv Contrast (as per radiologist's report) appreciated Left base consolidation and/or atelectasis, small amount of right base atelectasis with shift of the mediastinum toward the left. Limited exam without IV contrast. No discrete
mediastinal or hilar mass identified however repeat imaging with IV contrast after treatment was recommended to exclude an occult process. Small bibasilar pleural effusions. Small to moderate amount of pericardial effusion
ECHO (as per chairman emeritus's report) appreciated
Normal biventricular size and systolic function without regional wall motion
abnormality.
No significant valvular disease.
No prior study available for comparison

Assessment/Plan
72 y/o female with complicated history including, but not limited to pAfib COPD Asthma Hypothyroidism Monoclonal B-cell Lymphocytosis Hypogammaglobulinemia intolerant to IgG infusion Arthritis p/w weakness confusion encephalopathy COPD exacerbation
PNA Hyponatremia Acute Kidney Injury persistent orthostatic hypotension. Since improved, hospitalization prolonged due to progressive anemia unclear source. Pending EGD rectal exam under anesthesia.
Symptomatic Hypovolemic Hyponatremia related to over-diuresis. Was feeling weak, unable to walk and confused
- Metolazone discontinued
- Lasix reduced to 40 mg daily, continued for Lower ext swelling weeping likely chronic lymphedema (outpatient lymphedema clinic recommended)
- Celebrex initially held, was previously resumed as below, and placed on hold with worsening anemia and persistent rectal bleeding last dose 08/29 in AM
- IVF completed
- Na improved to 130s
Osteoarthritis
-Sees compliance auditor Dr. Colón outpatient at [place], being worked up for inflammatory arthritis
-Consulted rheumatology, recommendations appreciated
-Spoke with Dr. Robert Hayward (compliance auditor) over the phone on 09/03/23 -- discussed case with him -- he recommended 3000 mg Tylenol total daily dose to be given every day for now and then if the pain doesn't improve, then call rheumatology
again
-Dr. Hayward mentioned he will update patient's compliance auditor Dr. Colón
Acute Confusion/Encephalopathy - Resolved
Generalized Weakness Below Baseline
Left Lower Lobe Consolidation on CT Imaging
Left Lower Lobe Atelectasis
Suspected COPD Exacerbation
Cough, Rhonchi
AFB smears positive
-UA (urine culture with no growth), Influenza (negative), COVID (negative), Ammonia (low), Coagulation Studies (okay), Serum osmoles (okay), Blood cultures (no growth to date), TSH (low but T4 wnl - outpatient follow up), Vitamin B12 (non-deficient)
-Cortisol (in the morning) was low at 1.3 -- likely suppression d/t steroids
-CT Head unremarkable
-Thiamine 100 mg PO daily
-Follow-up outpatient as per Infectious Disease in latest by mid-October 2023, for positive AFB smears
Small bibasilar pleural effusions
Small to moderate amount of pericardial effusion
-Cardiology consult appreciated
-Echocardiogram ordered, results are above
-On echo, pericardial effusion is trivial
Orthostatic Hypotension
Dizziness/Lightheadedness on Standing
-patient not tolerating abd binder, has been using knee high TEDs only
-cardio consult appreciated, midodrine increased to 10 mg TID, cardizem and lasix discontinued (lasix later resumed reduced dose for lymphedema as above), LE compression NEO bandages applied
Bright red blood through vagina and rectal areas - recurrence on September 05, 2023
Bright Red Blood Per Rectum on 08/21/23
Hemorrhoids
Anal Ulcer
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
Same organism recovered from [facility].
-Monitor Hgb transfuse goal Hgb>7, pretreat with tylenol and benadryl given hx transfusion rxn hives, use washed red cells given hx hypogammaglobulinemia
-outpatient OBGYN follow up
GI eval appreciated Colonoscopy performed 08/27
� � � � � � � � � � � '- Non-bleeding internal and external hemorrhoids.
�� � � � � � � � � � � - Diverticulosis in the entire examined colon.
�� � � � � � � � � � � - The examination was otherwise normal.
�� � � � � � � � � � � - One 4 mm polyp in the descending colon, removed with
�� � � � � � � � � � � a jumbo cold forceps. Resected and retrieved.
�� � � � � � � � � � � - One 8 mm polyp in the ascending colon, removed with
�� � � � � � � � � � � a hot snare. Resected and retrieved.'
GI eval appreciated upper endoscopy performed 09/01
'Patient had 2 small angioectasias in the small bowel
which can contribute to bleeding.
- Esophageal plaques were found, consistent with
candidiasis.
- 3 cm hiatal hernia.
- Normal stomach.
- Two angioectasias in the duodenum. Treated with
argon plasma coagulation (APC). Clip was placed over
the one in the 2nd portion.
- No specimens collected.
Continue fluconazole x 14 days to treat the esophageal candidiasis above.
Bleeding and anemia persisted worsened
Proton pump inhibitor PO daily while inpatient, then ok for as needed.
CTA abd pelvis appreciated no active bleeding
flex sig performed 08/29 anal fissure and hemorrhoids noted
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
findings could be related to immunosuppression
Continue Valacyclovir x 10 days through 09/14/23.
CRS on 09/04/23 performed again rectal exam under anesthesia, rigid proctosigmoidoscopy, suture of small rectal ulcer, Botox chemodenervation
Continue Calmol 4 suppositories 4 times daily, and fiber supplementation, and daily sitz baths
Continue nifedipine with lidocaine twice daily if patient finds it beneficial
Normocytic Anemia
Anemia of Chronic Disease
Patient reported remote history adverse rxn blood transfusion hives all over
Monoclonal B cell lymphocytosis
Immunosuppressed with undetectable IgG and IgA levels
-Iron Studies appreciated AOCD with Iron level wnl
-Vit B12 non-deficient
-Hematology Eval Appreciated
-September 01, 2023: on this date, patient prophylactically transfused (prior to EUA above) 1PRBC irradiated as per Hematology with premedications Tylenol 650 mg PO, Benadryl 50 mg IV, Pepcid 20 mg IV, Solucortef 100 mg IV tolerated well.
History of hypogammaglobulinemia Suspected to be related to underlying lymphoproliferative disorder.
Intolerant to IVIg transfusions in the past.
Low threshold for abx initiation if new fevers or infectious symptoms
confirmed IgA IgG IgM deficient 08/26
Hypokalemia resolved at this time
-monitor and replete as necessary
Chronic dean catheter, requires Flomax
Recent Urethral Bleeding from a Urinary Catheter
Uretheral Prolapse
Bladder Spasms
Reported urinary clots
-Urology consult appreciated, cont outpt follow up with her urologist at [facility]
-Suspected atrophic vaginitis, Estrace cream started, vaginal bleeding since resolved, outpt obgyn follow up
Severe COPD
Prior history of severe persistent asthma
Chronic Hypoxic Respiratory Failure
Acute on chronic SOB due to recent episodes of strep PNA followed by COVID with deconditioning and CHF
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
Left Lower Lobe PNA , suspected RODRIGUEZ coinfection likely present on admission
-Recent admissions for Strep pneumonia and COVID
-Patient alternates 6 weeks coarse of doxycycline and Ceftin - Currently on doxycycline
-Switched to PO prednisone taper from Dexamethasone IV - as per pulmonary. Decrease Prednisone by 10 mg every 5 days, should be discharged on 10 mg until seen in pulmonary office.
-Continue Daliresp
-Continue fluticasone and salmeterol
-Continue levalbuterol prn
-Pulm eval appreciated
-Bronchoscopy performed on 08/22/23: follow bronchoalveolar lavage and cultures results acid fast bacilli positive pending speciation, PCR for TB however neg
-Infectious Disease consulted appreciated, Cefepime converted to cefdinir, no need for isolation/quarantine at this time. Cefdinir completed 08/29
Paroxysmal Atrial Fibrillation s/p Ablation
-Patient is not on anticoagulation as outpatient
-Continue diltiazem discontinued as above
Sacrum Healing Stage 3 pressure injury, POA
-Continue wound care
Anxiety/Depression
-Continue Duloxetine and alprazolam
Hypothyroidism
-Continue levothyroxine
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
-Continue gabapentin and duloxetine
-Gabapentin at max dose 1800 mg at 3 divided doses for her Cr clearance, transition to pregabalin offered patient however declines at this time
Arthritis
-home celecoxib resumed 08/25, discontinued 08/29 d/t worsening anemia persistent rectal bleed,
-celecoxib subsequently substituted with tramadol prn ordered, appears to be tolerating well at this time however symptoms ('locking joints') remain uncontrolled
-discussion with Rheumatology as above
Environment/Seasonal Allergies
-Continue fexofenadine and montelukast
History of Steroid-Induced Myopathy
PT/OT appreciated HH
DVT proph: (Previously Lovenox discontinued due to Bleeding as above) TERRI stockings, SCDs
GI ppx: protonix
Code Status: DNR/DNI
I spent a total of 56 minutes with the patient or on the floor. More than 50% of this time involved counseling and coordination of care.
Anticipated Discharge: 24 - 48 hours
Subjective/Interval History
-
Date of Service: September 08, 2023
Rectal spotting/bleeding persists. Patient also continues to endorse intermittent symptomatic episodes lightheadedness
Objective Data
-
Labs:
Laboratory Results
09/08/23
06:00
WBC Pending
Hgb Pending
Hct Pending
Plt Count Pending
Sodium Pending
Potassium Pending
Chloride Pending
Carbon Dioxide Pending
BUN Pending
Creatinine Pending
Glucose Pending
Calcium Pending
Vital Signs:
Vital Signs
Temp Pulse Resp BP Pulse Ox
98.4 F 83 16 129/76 95
09/07/23 23:00 09/07/23 23:00 09/07/23 23:00 09/07/23 23:00 09/07/23 23:00
I&O
09/06/23 09/07/23 09/08/23
06:59 06:59 06:59
Intake Total 1080 / 1080
Output Total 2225 / 2225
Balance -1145 / -1145
[2023-09-08] MEDS: NON-FORMULARY ITEM 2 INH INH ×2 (07:41→19:41)
[2023-09-08] MEDS: XOPENEX 0.63 MG INHALANT SOLUTION 0.630000000000000004 MG INH ×3 (07:41→19:41)
[2023-09-08] MEDS: NON-FORMULARY ITEM 1 UNIT INH ×2 (07:42→19:41)
[2023-09-08 08:00] VITALS: BP 120/67
[2023-09-08] MEDS: METAMUCIL, KONSYL PO (08:49)
[2023-09-08] MEDS: ProAmatine 10 MG PO ×3 (08:50→17:26)
[2023-09-08] MEDS: Pyridium 100 MG PO ×3 (08:50→22:57)
[2023-09-08] MEDS: CYMBALTA DELAYED RELEASE 30 MG PO (08:50)
[2023-09-08] MEDS: KCL 20 MEQ PO (08:50)
[2023-09-08] MEDS: VALTREX 1000 MG PO ×2 (08:51→22:58)
[2023-09-08] MEDS: DELTASONE 30 MG PO (08:51)
[2023-09-08] MEDS: VITAMIN B-12 500 MCG PO (08:51)
[2023-09-08] MEDS: FLOMAX 0.800000000000000044 MG PO (08:52)
[2023-09-08] MEDS: DIFLUCAN 200 MG PO (08:52)
[2023-09-08] MEDS: PROTONIX 40 MG PO (08:52)
[2023-09-08] MEDS: LASIX 40 MG PO (08:52)
[2023-09-08] MEDS: VITAMIN B1 100 MG PO (08:52)
[2023-09-08] MEDS: OSCAL 500 + D 500 MG PO ×2 (08:52→22:58)
[2023-09-08 08:53] LABS: % Basophils 0.2 % (0-2); % Eosinophils 0.4 % (0-6); % Immature Granulocytes 3.1 % (0-0.5); % Lymphocytes 39.3 % (20.5-51.1); Absolute Eosinophils 0.1 10^3/uL (0-0.7); Absolute Immature Granulocytes 0.4 10^3/uL (0-0.05); Absolute Lymphocytes 5.1 10^3/uL (1.2-3.4); Absolute Monocytes 0.7 10^3/uL (0.1-0.6); Absolute Neutrophils 6.7 10^3/uL (1.4-6.5); Hematocrit 29.2 % (37.0-47.0); Hemoglobin 9.7 g/dL (12.0-16.0); Mean Corp Hgb Conc. 33.2 g/dL (33.0-37.0); Mean Corpuscular Hgb 33.1 pg (27.0-31.0); Mean Corpuscular Volume 99.7 fL (81.0-99.0); Mean Platelet Volume 9.1 fL (7.4-10.4); Nucleated Red Blood Cells % 0.2 %; Platelet Count 206 10^3/uL (130-400); Red Blood Cell Count 2.93 10^6/uL (4.20-5.40); Red Cell Dist. Width 16.3 % (11.5-14.5); White Blood Cell Count 12.9 10^3/uL (4.8-10.8)
[2023-09-08] MEDS: NON-FORMULARY ITEM 2 SPRAY NASAL ×2 (08:53→22:56)
[2023-09-08] MEDS: NON-FORMULARY ITEM 1 SPRAY NASAL (08:53)
[2023-09-08] MEDS: NON-FORMULARY ITEM 1 UNIT PO (08:55)
[2023-09-08] MEDS: HYDROCORTISONE 2.5% CREAM 1 APPLIC TOPICAL ×2 (08:56→22:56)
[2023-09-08 09:03] LABS: Blood Urea Nitrogen 16 mg/dl (7-17); Calcium 8.8 mg/dl (8.4-10.2); Carbon Dioxide 34 mmol/L (22-30); Chloride 98 mmol/L (98-107); Estimated Creatinine Clearance 64 ml/min; Glucose 96 mg/dl (70-99); Magnesium 2.4 mg/dl (1.6-2.3); Phosphorus 3.7 mg/dl (2.5-4.5); Potassium 4.1 mmol/L (3.5-5.1); Sodium 136 mmol/L (135-145); eGFR > 60.00
--- NOTE | 2023-09-08 13:43 | W.PN.ID1 ---
Date of Service
Date of Service: September 08, 2023
Today's Communication
Continue Valacyclovir and Fluconazole through 09/14/23.
Assessment / Plan
Anal HSV
-anal bleeding ulcers
- 09/03/23 s/p flex sig, suture of small rectal ulcer, Botox chemodenervation
Anal ulcer biopsy: + HSV
- no prior history of genital HSV. Not sexually active since 5 yrs ago.
Left lower lobe pneumonia
Hypoxemia
Suspected exacerbation of COPD
Pulmonary RODRIGUEZ
Monoclonal B-cell lymphocytosis
P A-fib
Hypothyroidism
Gait dysfunction
Hx Steroid-induced myopathy
Recommendations:
Anal HSV, first episode. Continue valacyclovir 1000 mg po bid x 10 days through 09/14/23.
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
Same organism recovered from [facility]. Suspect contaminant versus colonizer.
Agree with fluconazole through 09/14/23.
LFTs were normal 08/29
Repeat QTc essentially unchanged
S/P course of cefdinir
Outpatient follow-up in [address] Carlin to discuss options.
����������������������������������������������������������
Chief Complaint
-: Other (candidal esophagitis)
Subjective / Review of Systems
Still with pain and bleeding over one spot in rectum.
Vital Signs / Physical Exam
Vital Signs
Vital Signs
Temp Pulse Resp BP Pulse Ox
99.2 F 93 18 110/62 94
09/08/23 08:00 09/08/23 08:00 09/08/23 08:00 09/08/23 12:34 09/08/23 10:54
Physical Exam
Constitutional: No Acute Distress
Pulmonary: Coarse
Gastrointestinal: Soft, Non Tender and Non Distended
Extremities: Negative Edema
Neurological: AO x 3
Objective Data
Lab Data
Lab Results
09/08/23 08:04
09/08/23 08:04
PT 12.6 Sec (11.4-14.6) 08/19/23 13:02
INR 0.96 08/19/23 13:02
APTT 22.9 Sec (23.4-35.0) L 08/19/23 13:02
Estimated Creat Clear 64 ml/min 09/08/23 08:04
Lactic Acid 1.9 mmol/L (0.7-2.0) 08/16/23 19:17
Total Bilirubin 1.0 mg/dl (0.2-1.3) 09/03/23 09:18
AST 21 U/L (14-36) 09/03/23 09:18
ALT 20 U/L (0-35) 09/03/23 09:18
Alkaline Phosphatase 39 U/L (38-126) 09/03/23 09:18
Most recent labs reviewed.
Micro Results:
08/22/23 09:56 Fungal Culture - Preliminary
Bronch Left Lower Lobe Yeast
08/22/23 09:56 Fungal Culture - Preliminary
Bronch Left Upper Lobe Culture in progress.
Positive cultures are reported as soon as detected.
Final report to follow in four to five weeks.
08/22/23 09:56 Acid Fast Bacilli Smear - Preliminary
Bronch Left Upper Lobe Acid Fast Bacilli Culture - Preliminary
Acid fast bacilli
M. avium-intracellular complex
Mycobacterial Sensitivity - Pending
08/22/23 09:56 Acid Fast Bacilli Smear - Preliminary
Bronch Left Lower Lobe Acid Fast Bacilli Culture - Preliminary
Acid fast bacilli
M. avium-intracellular complex
Specimen Source - Final
Mycobacterium tuberculosis DNA (PCR - Final
M. tuberculosis Rifampin (PCR) - Final
M. tuberculosis Complex Interpretat - Final
08/22/23 13:56 Fungus Mold Identification - Final
Bronch Left Lower Lobe Clavispora lusitaniae
08/19/23 16:02 Blood Culture - Final
Blood/Venous No Growth - Final Report
08/19/23 13:02 Blood Culture - Final
Blood/Venous No Growth - Final Report
08/22/23 09:56 Respiratory Culture - Final
Bronch Left Upper Lobe Usual Respiratory Kayla
Gram Stain - Final
08/22/23 09:56 Respiratory Culture - Final
Bronch Left Lower Lobe Usual Respiratory Kayla
Gram Stain - Final
08/21/23 11:11 Respiratory Culture - Final
Sputum Usual Respiratory Kayla
Gram Stain - Final
08/20/23 20:54 Respiratory Culture - Final
Sputum Gram Stain - Final
08/19/23 12:40 Urine Culture - Final
Urine NO GROWTH
08/19/23 12:39 Influenza Types A & B (DIEGO) - Final
Nasal Swab Negative for Influenza A & B, NAAT
Negative results must be combined with clinical observations
and patient history.
Nucleic Acid Amplification test (NAAT)performed on the
[employer] platform.
08/16/23 20:05 Urine Culture - Final
Urine NO GROWTH
09/01/2023 Anal ulcer biopsy: anus, edges of anal ulcer, biopsy: Ulcer and cellular changes consistent with herpes infection
--- NOTE | 2023-09-08 14:14 | W.PN.UPDATE ---
Update Note
Progress Note Update
We were asked to see the patient in re-evaluation with reports rectal bleeding with clots. Per the pt she has been having some ongoing small amounts of bleeding/leaking from her rectum with some clots. She denies any straining with bowel movements.
She has been using hydrocortisone ointment as prescribed. Also being treated for anal fissure (seen on flex sig). She denies any other GI complaints. Noted she had OR evaluation with CRS with suturing of rectal ulcer. Her hgb is stable. I believe
this small amount of bleeding is likely related to the known rectal ulcer, as we did not see anything endoscopically on colonoscopy to explain her rectal bleeding. She did have a fissure on flex sig but this is being treated. EGD showed
angioectasia's which were treated but this likely would cause melena not red blood with clots. I discussed with the pt, hospitalist, and Dr. Jean. Requesting CRS re-evaluation at this time. No new recommendations from GI standpoint. If
recurrent/ongoing anemia, OP capsule should be considered per Dr. Huitron's recommendations.
[2023-09-08 15:00] VITALS: BP 90/62
[2023-09-08 15:04] LABS: TSH Reflex To Free T4 < 0.02 uIU/ml (0.47-4.68)
[2023-09-08 15:33] LABS: Free T4 1.18 ng/dl (0.78-2.19)
--- NOTE | 2023-09-08 17:05 | CON.CAR ---
Addendum entered and electronically signed by Matt Hardin MD 09/08/23 17:59:
Attending addendum: ASKED TO GIVE SECOND OPINION: REGULAR SHOE PACKER IS DR. SCAR HOLLIS.
Briefly, 72 y/o female s/p afib ablation x 2 with intermittent atrial tachycardia. She moved closer to this area to be with family. She has been started on midodrine with titration to 10mg tid for symptomatic orthostasis. She feels as if she has
been volume overloaded with LE edema (NOT present today) and ProBNP 263 during this hospitalization and only 637 in 07/2022. Now in with slow GI bleeding. She does have a history of persistent asthma and recent pneumonia.
GEN: AAO x 3. No acute distress
HEENT: NC/AT, sclera are anicteric
NECK: Normal JVP
LUNGS: Bilateral expiratory wheezing. i
CV: Regular rate and rhythm. Normal S1/S2. Murmur: None
ABD : Soft, NT, ND, No HSM. Bowel sounds are present.
EXT: No CCE. Venous stasis changes; marked and ecchymosis from thin skin / steroids
NEURO: No focal neurologic deficits
RECOMMENDATIONS:
-Normal LVEF with orthostasis. I am not sure high doses of midodrine is the best treatment.
-Lets try low dose Florinef and cutting back on diuretic
-Please be sure pulmonary is okay with fludrocortisone
-Decrease furosemide in half
-continue midodrine at current dose
-IF she schedules with Dr. Osman then we can very very slowly adjust dose. Will start florinef at 0.05mg once daily.
Original Note:
Consultation
Consultation Request
Date/Time Consultation Requested: 09/08/23
Date/Time Consultation Performed: 09/08/23
Requesting Provider: Dr. Smith
Performing Provider: Dr. Hardin
Reason for Consultation: Orthostasis
Medical History
-
History of Present Illness:
Patient was admitted to 08/16/[address] Hollis, but how now requested to be seen by Dr. Osman so cardiology has been consulted. Patient used to live in [place] and followed with a casino cage manager from [facility] in the [place]
office. Patient says that she was told she had Afib and had an ablation at [facility] as recently as 2016. More recently patient lost her and mother and moved to this area to be closer to family. 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 Patient reports making an outpatient appt to see Dr. Hollis, but missed the appointment because she was hospitalized. Patient was seen as an inpatient by cardiology this admission for orthostasis. Patient was taking midodrine 5 mg
AM and 2.5 mg at 1400 daily prior to admission for symptomatic hyponatremia. On admission her outpatient dose of Lasix 40 mg BID and metolazone 2.5 mg daily was held. She was seen by Nephrology. Patient reports increasing edema when steroids were
started to help with her asthma and that as her edema worsened her oxygenation worsened so her Lasix was restarted. Patient has now been admitted for more than 3 weeks and in that time was also treated for lower GI bleed due to rectal ulcer due to
HSV. Patient is now asking for Dr. Osman to be her casino cage manager instead of Dr. Hollis and patient says that she wants to go home on Friday.
PMH:
Severe persistent asthma requiring biologic therapy
Recent admission for community acquired PNA and asthma exacerbation 07/03/23 until 07/14/22
Monoclonal B-cell lymphocytosis
Immunoglobulin deficiency per patient report
Paroxysmal Afib/tach
Hypothyroidism
Past Medical History
Past Medical History: Other (in HPI)
Past Surgical History: Cardiac (previous ablation, last ablation at [facility] in 2016)
Social History
Tobacco: Non-Smoker
Alcohol: None
Drug: None
Personal:
Living: Alone (recently moved to the area from [place])
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
Family History
Family History: Reviewed & Not Pertinent
Allergies / Home Medications
Allergy/AdvReac Type Severity Reaction Status Date / Time
alendronate sodium Allergy abd pain, Verified 08/19/23 05:53
[From Fosamax] diarrhea
azithromycin Allergy Rash Verified 11/20/22 14:52
calamine Allergy Rash Verified 08/16/23 23:53
camphor Allergy Shortness Verified 08/19/23 16:08
of Breath
chlorhexidine Allergy Shortness Verified 08/19/23 16:08
of Breath
codeine Allergy Rash Verified 11/20/22 14:52
glucose [From Gammagard S/D] Allergy Unknown Verified 08/19/23 16:08
glycine [From Gammagard S/D] Allergy Unknown Verified 08/19/23 16:08
IgA less than or equal to 50 Allergy Unknown Verified 08/19/23 16:08
mcg/mL
[From Gammagard S/D]
immune globulin,gamma (IgG) Allergy Unknown Verified 08/19/23 16:08
human
[From Gammagard S/D]
latex Allergy Rash Verified 08/16/23 23:52
morphine Allergy Rash Verified 11/20/22 14:52
tetanus toxoid, adsorbed Allergy Rash Verified 11/20/22 14:52
tuberculin, purified protein Allergy Rash Verified 11/20/22 18:54
deriva
blood transfusion Allergy Hives Uncoded 08/19/23 16:08
Medication Instructions Recorded Confirmed Type
azelastine 137 mcg (0.1 %) nasal 1 spray intranasal DAILY Allergies 11/20/22 08/17/23 History
spray aerosol
celecoxib 200 mg capsule 200 mg PO BID Pain 11/20/22 08/17/23 History
fexofenadine 180 mg tablet 180 mg PO DAILY Allergies 11/20/22 08/17/23 History
fluticasone propionate 50 2 spray intranasal BID Allergies 11/20/22 08/17/23 History
mcg/actuation nasal
spray,suspension
gabapentin 300 mg capsule 300 mg PO HS Pain 11/20/22 08/17/23 History
gabapentin 600 mg tablet 600 mg PO TID@0700,1500,2200 Pain 11/20/22 08/17/23 History
krill oil 1 cap PO DAILY Supplement 11/20/22 08/17/23 History
levothyroxine 112 mcg tablet 112 mcg PO MOWEFR@07 Thyroid 11/20/22 08/17/23 History
levothyroxine 125 mcg tablet 125 mcg PO SUTUTHSA@07 Thyroid 11/20/22 08/17/23 History
montelukast 10 mg tablet 10 mg PO HS Lung/breathing issues 11/20/22 08/17/23 History
doxycycline hyclate 100 mg capsule 100 mg PO BID #60 caps 11/25/22 08/17/23 Rx
Citracal plus D 1 tab PO BID Supplement 07/03/23 08/17/23 History
ascorbic acid (vitamin C) 500 mg 500 mg PO QPM Supplement 07/03/23 08/17/23 History
tablet (Vitamin C)
cefuroxime axetil 500 mg tablet 500 mg PO BID Infection 07/03/23 08/16/23 History
cholecalciferol (vitamin D3) 25 25 mcg PO .4 TIMES A WEEK@1700 07/03/23 08/17/23 History
mcg (1,000 unit) tablet Supplement
cyanocobalamin (vitamin B-12) 500 mcg PO DAILY Supplement 07/03/23 08/17/23 History
1,000 mcg tablet
duloxetine 30 mg capsule,delayed 30 mg PO DAILY Depression 07/03/23 08/17/23 History
release
fluticasone furoate 200 2 inh inhalation R BID 07/03/23 08/17/23 History
mcg/actuation blister powder for Lung/Breathing Issues
inhalation
levalbuterol tartrate 45 1 puff inhalation R Q8HPRN PRN sob 07/03/23 08/17/23 History
mcg/actuation aerosol inhaler
roflumilast 500 mcg tablet 500 mcg PO HS Lung/Breathing Issues 07/03/23 08/17/23 History
(Daliresp)
salmeterol 50 mcg/dose blister 1 inh inhalation R BID 07/03/23 08/17/23 History
powder for inhalation (Serevent Lung/Breathing Issues
Diskus)
turmeric 400 mg capsule 400 mg PO BID Supplement 07/03/23 08/17/23 History
alprazolam 0.5 mg tablet 0.5 mg PO HS #3 tabs 07/12/23 08/17/23 Rx
levalbuterol HCl 1.25 mg/3 mL 1.25 mg (3 mL) inhalation R Q6HPRN 07/12/23 08/17/23 Rx
solution for nebulization PRN sob/wheeze #0 mL
diltiazem HCl 30 mg tablet 30 mg PO TID Blood Pressure 08/16/23 08/17/23 History
furosemide 40 mg tablet (Lasix) 40 mg PO BID@0800,1600 Fluid 08/16/23 08/23/23 History
Retention/Swelling
metolazone 2.5 mg tablet 2.5 mg PO DAILY Fluid 08/16/23 08/16/23 History
Retention/Swelling
midodrine 2.5 mg tablet 2.5 mg PO DAILY@1400 Blood Pressure 08/16/23 08/17/23 History
midodrine 5 mg tablet 5 mg PO DAILY Blood Pressure 08/16/23 08/17/23 History
phenazopyridine 100 mg tablet 100 mg PO TID Urinary Issue 08/16/23 08/17/23 History
(Pyridium)
prednisone 10 mg tablet 30 mg PO DAILY Anti-Inflammatory 08/16/23 08/17/23 History
Fluticasone Propionate (Flixotide) 2 inh inhalation R BID 08/17/23 08/17/23 History
Lung/Breathing Issues
Tylenol Arthritis 1,300 PO BID Pain 08/17/23 History
benzonatate 100 mg capsule 200 mg PO TID Cough 08/17/23 08/17/23 History
duloxetine 60 mg PO QPM Depression 08/17/23 08/17/23 History
tamsulosin 0.8 mg PO DAILY Urinary Issue 08/17/23 08/23/23 History
Review of Systems
-
History Source: Patient
All other systems: Negative unless noted
Physical Exam
Vital Signs
Temp Pulse Resp BP Pulse Ox
99.4 F 117 18 90/62 95
09/08/23 15:00 09/08/23 15:00 09/08/23 15:00 09/08/23 15:00 09/08/23 15:00
GEN: NAD. AAOx3
HEENT: EOMI, MMM
LUNGS: Wearing oxygen at 3 L NC. No audible wheeze.
CV: SR on tele
ABD: soft, BS+
EXT: No edema B/L LE
NEURO: Gross non-focal
SKIN: Warm, dry and pink. No rash
Lab Results
09/08/23 08:04
09/08/23 08:04
Dyn-G-Rndrungvvpy Pept 263 pg/ml 08/28/23 07:05
Impression / Plan
-
PCP: Dr. Juan Kamara
Cardiology: Dr. Hollis
Impression:
Admitted with symptomatic hypovolemic hyponatremia 08/16/23
Osteoarthritis
Acute exacerbation asthma, now severe persistent asthma requiring biologic therapy
Recent admission for community acquired PNA and asthma exacerbation 07/03/23 until 07/14/22
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
Chronic SOB, likely RODRIGUEZ per pulm
Monoclonal B-cell lymphocytosis
Immunoglobulin deficiency per patient report
Paroxysmal Afib/tach
Hypothyroidism
Echo 08/20/23: Normal biventricular function size and systolic function without regional WMA, no significant valve disease
Plan:
-Patient was admitted to 08/16/[address] by Dr[address] Hollis, but how now requested to be seen by Dr. Osman so cardiology has been consulted. Patient used to live in [place] and followed with a casino cage manager from [facility] in the [place]
office. Patient says that she was told she had Afib and had an ablation at [facility] as recently as 2016. More recently patient lost her and mother and moved to this area to be closer to family. 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 Patient reports making an outpatient appt to see Dr. Hollis, but missed the appointment because she was hospitalized. Patient was seen as an inpatient by cardiology this admission for orthostasis. Patient was taking midodrine 5 mg
AM and 2.5 mg at 1400 daily prior to admission for symptomatic hyponatremia. On admission her outpatient dose of Lasix 40 mg BID and metolazone 2.5 mg daily was held. She was seen by Nephrology. Patient reports increasing edema when steroids were
started to help with her asthma and that as her edema worsened her oxygenation worsened so her Lasix was restarted. Patient has now been admitted for more than 3 weeks and in that time was also treated for lower GI bleed due to rectal ulcer due to
HSV. Patient is now asking for Dr. Osman to be her casino cage manager instead of Dr. Hollis and patient says that she wants to go home on Friday.
-Talked with patient in room for approx 25 minutes while patient was using the toilet at her request and then helped patient to her bed. Talked about patient's goals of discharge to home this week and the desire to minimize orthostatic symptoms. Had
a management of expectations conversation with the patient about realistic expectations for her orthostasis management and how that coincides with her expectations about the level of LE edema and also what LE edema represents ie venous insufficiency
vs heart failure.
-Patient is agreeable to a reduction in Lasix to 20 mg daily
-Patient is agreeable to initiation of Florinef 0.1 mg daily starting 09/09/23. Will continue Midodrine 10 mg TID as well.
-Patient is expected to have an increase LE edema.
-ECG reviewed by me with sinus arrhythmia
[2023-09-08] MEDS: VITAMIN C 500 MG PO (17:26)
[2023-09-08 19:35] VITALS: BP 118/71
[2023-09-08] MEDS: ESTRACE 0.01% VAGINAL CREAM 1 APPLIC VAG (22:56)
[2023-09-08] MEDS: CYMBALTA DELAYED RELEASE 60 MG PO (22:57)
[2023-09-08] MEDS: DALIRESP 500 MCG PO (22:58)
[2023-09-08] MEDS: SINGULAIR 10 MG PO (22:58)
[2023-09-08 23:09] VITALS: BP 116/73
[2023-09-09] MEDS: XANAX 0.5 MG PO (00:01)
[2023-09-09] MEDS: TESSALON PERLES 100 MG PO ×2 (00:01→06:21)
[2023-09-09] MEDS: ULTRAM 50 MG PO ×4 (00:01→18:26)
[2023-09-09 03:09] VITALS: BP 105/69
[2023-09-09 06:00] VITALS: BMI 20.7
[2023-09-09] MEDS: TYLENOL 1000 MG PO ×3 (06:20→22:29)
[2023-09-09] MEDS: NEURONTIN 600 MG PO ×3 (06:20→22:29)
[2023-09-09] MEDS: MIRALAX 17 GRAMS PO (06:21)
[2023-09-09] MEDS: SYNTHROID 125 MCG PO (06:21)
[2023-09-09] MEDS: XOPENEX 0.63 MG INHALANT SOLUTION 0.630000000000000004 MG INH ×3 (07:25→23:33)
[2023-09-09] MEDS: NON-FORMULARY ITEM 1 UNIT INH ×2 (07:26→19:37)
[2023-09-09 07:27] VITALS: BP 128/80
[2023-09-09] MEDS: NON-FORMULARY ITEM 2 INH INH (07:27)
--- NOTE | 2023-09-09 07:53 | W.PN.HOSP.TC ---
Today's Communication/Plan
-
Monitor H&H
cont midodrine blood pressure support
cont steroid taper
Cont Fluconazole Acyclovir
discharge planning for AM Home with home services, patient in agreement and looking forward to discharge
Assessment / Plan
Assessment / Plan
Physical Exam
General: Not in acute distress
HEENT: Normocephalic, Atraumatic
Respiratory: Scattered wheezes and some crackles
Cardiac: Regular Rhythm and S1/S2
GI: Soft, Nontender and Nondistended. Positive bowel sounds.
Musculoskeletal: No Cyanosis and No Edema.

CT Head (as per radiologist's report) without IV contrast appreciated No acute intracranial abnormality
CT Chest W/o Iv Contrast (as per radiologist's report) appreciated Left base consolidation and/or atelectasis, small amount of right base atelectasis with shift of the mediastinum toward the left. Limited exam without IV contrast. No discrete
mediastinal or hilar mass identified however repeat imaging with IV contrast after treatment was recommended to exclude an occult process. Small bibasilar pleural effusions. Small to moderate amount of pericardial effusion
ECHO (as per coding director's report) appreciated
Normal biventricular size and systolic function without regional wall motion
abnormality.
No significant valvular disease.
No prior study available for comparison

Assessment/Plan
72 y/o female with complicated history including, but not limited to pAfib COPD Asthma Hypothyroidism Monoclonal B-cell Lymphocytosis Hypogammaglobulinemia intolerant to IgG infusion Arthritis p/w weakness confusion encephalopathy COPD exacerbation
PNA Hyponatremia Acute Kidney Injury persistent orthostatic hypotension. Since improved, hospitalization prolonged due to progressive anemia unclear source. Pending EGD rectal exam under anesthesia.
Symptomatic Hypovolemic Hyponatremia related to over-diuresis. Was feeling weak, unable to walk and confused
- Metolazone discontinued
- Lasix reduced to 40 mg daily, continued for Lower ext swelling weeping likely chronic lymphedema (outpatient lymphedema clinic recommended)
- Celebrex initially held, was previously resumed as below, and placed on hold with worsening anemia and persistent rectal bleeding last dose 08/29 in AM
- IVF completed
- Na improved to 130s
Osteoarthritis
-Sees oven tender Dr. Colón outpatient at [place], being worked up for inflammatory arthritis
-Consulted rheumatology, recommendations appreciated
-Spoke with Dr. Robert Hayward (oven tender) over the phone on 09/03/23 -- discussed case with him -- he recommended 3000 mg Tylenol total daily dose to be given every day for now and then if the pain doesn't improve, then call rheumatology
again
-Dr. Hayward mentioned he will update patient's oven tender Dr. Colón
Acute Confusion/Encephalopathy - Resolved
Generalized Weakness Below Baseline
Left Lower Lobe Consolidation on CT Imaging
Left Lower Lobe Atelectasis
Suspected COPD Exacerbation
Cough, Rhonchi
AFB smears positive
-UA (urine culture with no growth), Influenza (negative), COVID (negative), Ammonia (low), Coagulation Studies (okay), Serum osmoles (okay), Blood cultures (no growth to date), TSH (low but T4 wnl - outpatient follow up), Vitamin B12 (non-deficient)
-Cortisol (in the morning) was low at 1.3 -- likely suppression d/t steroids
-CT Head unremarkable
-Thiamine 100 mg PO daily
-Follow-up outpatient as per Infectious Disease in latest by mid-October 2023, for positive AFB smears
Small bibasilar pleural effusions
Small to moderate amount of pericardial effusion
-Cardiology consult appreciated
-Echocardiogram ordered, results are above
-On echo, pericardial effusion is trivial
Orthostatic Hypotension
Dizziness/Lightheadedness on Standing
-patient not tolerating abd binder, has been using knee high TEDs only
-cardio consult appreciated, midodrine increased to 10 mg TID, cardizem and lasix discontinued (lasix later resumed reduced dose for lymphedema as above), LE compression NEO bandages applied
-2nd opinion cardio eval appreciated (patient requesting to follow with other Cardio group, specifically Dr Osman), lasix dose reduced to 20 mg daily, cuate also considered however patient declines.
Bright red blood through vagina and rectal areas - recurrence on September 05, 2023
Bright Red Blood Per Rectum on 08/21/23
Hemorrhoids
Anal Ulcer
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
Same organism recovered from [facility].
-Monitor Hgb transfuse goal Hgb>7, pretreat with tylenol and benadryl given hx transfusion rxn hives, use washed red cells given hx hypogammaglobulinemia
-outpatient OBGYN follow up
GI eval appreciated Colonoscopy performed 08/27
� � � � � � � � � � � '- Non-bleeding internal and external hemorrhoids.
�� � � � � � � � � � � - Diverticulosis in the entire examined colon.
�� � � � � � � � � � � - The examination was otherwise normal.
�� � � � � � � � � � � - One 4 mm polyp in the descending colon, removed with
�� � � � � � � � � � � a jumbo cold forceps. Resected and retrieved.
�� � � � � � � � � � � - One 8 mm polyp in the ascending colon, removed with
�� � � � � � � � � � � a hot snare. Resected and retrieved.'
GI eval appreciated upper endoscopy performed 09/01
'Patient had 2 small angioectasias in the small bowel
which can contribute to bleeding.
- Esophageal plaques were found, consistent with
candidiasis.
- 3 cm hiatal hernia.
- Normal stomach.
- Two angioectasias in the duodenum. Treated with
argon plasma coagulation (APC). Clip was placed over
the one in the 2nd portion.
- No specimens collected.
Continue fluconazole x 14 days to treat the esophageal candidiasis above.
Bleeding and anemia persisted worsened
Proton pump inhibitor PO daily while inpatient, then ok for as needed.
CTA abd pelvis appreciated no active bleeding
flex sig performed 08/29 anal fissure and hemorrhoids noted
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
findings could be related to immunosuppression
Continue Valacyclovir x 10 days through 09/14/23.
CRS on 09/04/23 performed again rectal exam under anesthesia, rigid proctosigmoidoscopy, suture of small rectal ulcer, Botox chemodenervation
Continue Calmol 4 suppositories 4 times daily, and fiber supplementation, and daily sitz baths
Continue nifedipine with lidocaine twice daily if patient finds it beneficial
CRS eval appreciated 09/08 stable for outpatient follow up.
Normocytic Anemia
Anemia of Chronic Disease
Patient reported remote history adverse rxn blood transfusion hives all over
Monoclonal B cell lymphocytosis
Immunosuppressed with undetectable IgG and IgA levels
-Iron Studies appreciated AOCD with Iron level wnl
-Vit B12 non-deficient
-Hematology Eval Appreciated
-September 01, 2023: on this date, patient prophylactically transfused (prior to EUA above) 1PRBC irradiated as per Hematology with premedications Tylenol 650 mg PO, Benadryl 50 mg IV, Pepcid 20 mg IV, Solucortef 100 mg IV tolerated well.
History of hypogammaglobulinemia Suspected to be related to underlying lymphoproliferative disorder.
Intolerant to IVIg transfusions in the past.
Low threshold for abx initiation if new fevers or infectious symptoms
confirmed IgA IgG IgM deficient 08/26
Hypokalemia resolved at this time
-monitor and replete as necessary
Chronic dean catheter, requires Flomax
Recent Urethral Bleeding from a Urinary Catheter
Uretheral Prolapse
Bladder Spasms
Reported urinary clots
-Urology consult appreciated, cont outpt follow up with her urologist at [facility]
-Suspected atrophic vaginitis, Estrace cream started, vaginal bleeding since resolved, outpt obgyn follow up
Severe COPD
Prior history of severe persistent asthma
Chronic Hypoxic Respiratory Failure
Acute on chronic SOB due to recent episodes of strep PNA followed by COVID with deconditioning and CHF
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
Left Lower Lobe PNA , suspected RODRIGUEZ coinfection likely present on admission
-Recent admissions for Strep pneumonia and COVID
-Patient alternates 6 weeks coarse of doxycycline and Ceftin - Currently on doxycycline
-Switched to PO prednisone taper from Dexamethasone IV - as per pulmonary. Decrease Prednisone by 10 mg every 5 days, should be discharged on 10 mg until seen in pulmonary office.
-Continue Daliresp
-Continue fluticasone and salmeterol
-Continue levalbuterol prn
-Pulm eval appreciated
-Bronchoscopy performed on 08/22/23: follow bronchoalveolar lavage and cultures results acid fast bacilli positive pending speciation, PCR for TB however neg
-Infectious Disease consulted appreciated, Cefepime converted to cefdinir, no need for isolation/quarantine at this time. Cefdinir completed 08/29
Paroxysmal Atrial Fibrillation s/p Ablation
-Patient is not on anticoagulation as outpatient
-Continue diltiazem discontinued as above
Sacrum Healing Stage 3 pressure injury, POA
-Continue wound care
Anxiety/Depression
-Continue Duloxetine and alprazolam
Hypothyroidism
-Continue levothyroxine
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
-Continue gabapentin and duloxetine
-Gabapentin at max dose 1800 mg at 3 divided doses for her Cr clearance, transition to pregabalin offered patient however declines at this time
Arthritis
-home celecoxib resumed 08/25, discontinued 08/29 d/t worsening anemia persistent rectal bleed,
-celecoxib subsequently substituted with tramadol prn ordered, appears to be tolerating well at this time however symptoms ('locking joints') remain uncontrolled
-discussion with Rheumatology as above
Environment/Seasonal Allergies
-Continue fexofenadine and montelukast
History of Steroid-Induced Myopathy
PT/OT appreciated HH
DVT proph: (Previously Lovenox discontinued due to Bleeding as above) TERRI stockings, SCDs
GI ppx: protonix
Code Status: DNR/DNI
I spent a total of 56 minutes with the patient or on the floor. More than 50% of this time involved counseling and coordination of care.
Anticipated Discharge: Within 24 hours
Subjective/Interval History
-
Date of Service: September 09, 2023
No acute distress appears comfortable at this time. Continues to report Rectal spotting and 'draining' (patient's term for intermittent episodes lightheadedness).
Objective Data
-
Labs:
Laboratory Results
09/09/23
07:51
WBC Pending
Hgb Pending
Hct Pending
Plt Count Pending
Sodium Pending
Potassium Pending
Chloride Pending
Carbon Dioxide Pending
BUN Pending
Creatinine Pending
Glucose Pending
Calcium Pending
Vital Signs:
Vital Signs
Temp Pulse Resp BP Pulse Ox
99.6 F 76 14 128/80 94
09/09/23 07:27 09/09/23 07:30 09/09/23 07:30 09/09/23 07:27 09/09/23 07:30
I&O
09/08/23 09/09/23 09/10/23
06:59 06:59 06:59
Intake Total 2159
Balance 2159
[2023-09-09 08:14] LABS: % Basophils 0.2 % (0-2); % Eosinophils 0.3 % (0-6); % Immature Granulocytes 2.3 % (0-0.5); % Lymphocytes 42.2 % (20.5-51.1); % Monocytes 5.2 % (1.7-9.3); % Neutrophils 49.8 % (42.2-75.2); Absolute Immature Granulocytes 0.3 10^3/uL (0-0.05); Absolute Lymphocytes 5.2 10^3/uL (1.2-3.4); Absolute Monocytes 0.6 10^3/uL (0.1-0.6); Absolute Neutrophils 6.2 10^3/uL (1.4-6.5); Hematocrit 28.5 % (37.0-47.0); Hemoglobin 9.5 g/dL (12.0-16.0); Mean Corp Hgb Conc. 33.3 g/dL (33.0-37.0); Mean Corpuscular Hgb 33.5 pg (27.0-31.0); Mean Corpuscular Volume 100.4 fL (81.0-99.0); Mean Platelet Volume 9.1 fL (7.4-10.4); Nucleated Red Blood Cells % 0 %; Platelet Count 186 10^3/uL (130-400); Red Blood Cell Count 2.84 10^6/uL (4.20-5.40); Red Cell Dist. Width 16.3 % (11.5-14.5); White Blood Cell Count 12.4 10^3/uL (4.8-10.8)
[2023-09-09 08:38] LABS: Blood Urea Nitrogen 14 mg/dl (7-17); Calcium 8.5 mg/dl (8.4-10.2); Carbon Dioxide 34 mmol/L (22-30); Chloride 102 mmol/L (98-107); Estimated Creatinine Clearance 74 ml/min; Glucose 70 mg/dl (70-99); Magnesium 2.5 mg/dl (1.6-2.3); Phosphorus 3.5 mg/dl (2.5-4.5); Sodium 135 mmol/L (135-145); eGFR > 60.00
[2023-09-09] MEDS: NON-FORMULARY ITEM 1 UNIT PO (08:40)
[2023-09-09] MEDS: METAMUCIL, KONSYL PO (08:41)
[2023-09-09] MEDS: FLOMAX 0.800000000000000044 MG PO (08:41)
[2023-09-09] MEDS: VITAMIN B-12 500 MCG PO (08:42)
[2023-09-09] MEDS: PROTONIX 40 MG PO (08:42)
[2023-09-09] MEDS: VITAMIN B1 100 MG PO (08:42)
[2023-09-09] MEDS: KCL 20 MEQ PO (08:43)
[2023-09-09] MEDS: Pyridium 100 MG PO ×3 (08:43→22:29)
[2023-09-09] MEDS: DIFLUCAN 200 MG PO (08:43)
[2023-09-09] MEDS: CYMBALTA DELAYED RELEASE 30 MG PO (08:44)
[2023-09-09] MEDS: OSCAL 500 + D 500 MG PO ×2 (08:44→22:27)
[2023-09-09] MEDS: LASIX 20 MG PO (08:45)
[2023-09-09] MEDS: VALTREX 1000 MG PO ×2 (08:46→22:28)
[2023-09-09] MEDS: DELTASONE 30 MG PO (08:47)
[2023-09-09] MEDS: NON-FORMULARY ITEM 1 SPRAY NASAL (08:52)
[2023-09-09] MEDS: ProAmatine 10 MG PO ×3 (08:52→17:26)
[2023-09-09] MEDS: NON-FORMULARY ITEM 2 SPRAY NASAL ×2 (08:52→22:26)
[2023-09-09] MEDS: HYDROCORTISONE 2.5% CREAM 1 APPLIC TOPICAL ×2 (08:53→22:27)
--- NOTE | 2023-09-09 11:01 | W.PN.CRS1 ---
Today's Communication / Plan
-
Signing off.
Assessment/Plan
-
Patient with herpetic ulcer of anal canal with discomfort and occasional spotting of blood.
1. Hemoglobin essentially stable. The blood loss is minimal at this point. No reason for interventions at this point. It will take this ulcer time to heal.
2. Continue current measures.
3. Signing off for now. Patient wishes to follow-up with our group within a week. This is reasonable.
Subjective Data
Procedure
09/01- Exam under anesthesia, biopsy of anal ulcer, fulguration of anal ulcer
09/03- �Rectal exam under anesthesia, rigid proctosigmoidoscopy, suture of small rectal ulcer, Botox�
Subjective Data
Date of Service: September 09, 2023
Patient still with spotting of blood. Minimal volume. Multiple questions. She relates she is leaving tomorrow morning.
Objective Data
-
Vital Signs
Temp Pulse Resp BP Pulse Ox
99.6 F 76 14 118/72 94
09/09/23 07:27 09/09/23 07:30 09/09/23 07:30 09/09/23 08:52 09/09/23 09:46
Intake & Output
09/08/23 09/09/23 09/10/23
06:59 06:59 06:59
Intake Total 2160 / 2160
Balance 2160 / 2160
Intake:
Oral fluids 0 / 2160
Other:
Number of approximated MODERATE 2
amounts of urine
Lab Results
09/09/23 07:51
09/09/23 07:51
Physical Exam
-
General: No Acute Distress
Chest: Clear
Cardiovascular: Regular Rate & Rhythm
Abdomen: Non Distended and Non Tender
Rectal: Other (Deferred)
[2023-09-09 11:33] VITALS: BP 104/68
--- NOTE | 2023-09-09 12:29 | W.PN.CARDCBS ---
Today's Communication / Plan
-
Continue reduced dose of Lasix
Not agreeable to Laceyf, will discontinue
Continue midodrine
Impression / Plan
-
PCP: Dr. Juan Kamara
Cardiology: Dr. Cedeño
Impression:
Admitted with symptomatic hypovolemic hyponatremia 08/16/23
Osteoarthritis
Acute exacerbation asthma, now severe persistent asthma requiring biologic therapy
Recent admission for community acquired PNA and asthma exacerbation 07/03/23 until 07/14/22
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
Chronic SOB, likely RODRIGUEZ per pulm
Monoclonal B-cell lymphocytosis
Immunoglobulin deficiency per patient report
Paroxysmal Afib/tach
Hypothyroidism
Echo 08/20/23: Normal biventricular function size and systolic function without regional WMA, no significant valve disease
Patient was admitted to 08/16/[address] Cedeño, but how now requested to be seen by Dr. Osman so cardiology has been consulted. Patient used to live in [place] and followed with a home housekeeper from [facility] in the [place]
office. Patient says that she was told she had Afib and had an ablation at [facility] as recently as 2016. More recently patient lost her and mother and moved to this area to be closer to family. 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 Patient reports making an outpatient appt to see Dr. Cedeño, but missed the appointment because she was hospitalized. Patient was seen as an inpatient by cardiology this admission for orthostasis. Patient was taking midodrine 5 mg
AM and 2.5 mg at 1400 daily prior to admission for symptomatic hyponatremia. On admission her outpatient dose of Lasix 40 mg BID and metolazone 2.5 mg daily was held. She was seen by Nephrology. Patient reports increasing edema when steroids were
started to help with her asthma and that as her edema worsened her oxygenation worsened so her Lasix was restarted. Patient has now been admitted for more than 3 weeks and in that time was also treated for lower GI bleed due to rectal ulcer due to
HSV. Patient is now asking for Dr. Osman to be her home housekeeper instead of Dr. Cedeño and patient says that she wants to go home on Friday.
Plan:
-Ongoing orthostasis, suspect adrenal insufficiency and over diuresis are contributing
-Reduce Lasix to 20 mg daily
-Patient is no longer agreeable to initiation of Florinef
-Will likely require slow wean of her steroids
-Continue Midodrine 10 mg TID
-We will arrange for outpatient follow up with Dr. Nichols as requested
Progress Note - [employer]
Subjective
Date of Service: September 09, 2023
No acute overnight events. Resting comfortably in bed. Still with some SOB. Feels her edema is worse today. No agreeable to take Florinef based on our conversation.
Objective
Labs:
09/09/23 07:51
09/09/23 07:51
Labs
Hgb 9.5 g/dL (12.0-16.0) L 09/09/23 07:51
Hct 28.5 % (37.0-47.0) L 09/09/23 07:51
Plt Count 186 10^3/uL (130-400) 09/09/23 07:51
PT 12.6 Sec (11.4-14.6) 08/19/23 13:02
INR 0.96 08/19/23 13:02
APTT 22.9 Sec (23.4-35.0) L 08/19/23 13:02
Sodium 135 mmol/L (135-145) 09/09/23 07:51
Potassium 4.0 mmol/L (3.5-5.1) 09/09/23 07:51
BUN 14 mg/dl (7-17) 09/09/23 07:51
Creatinine 0.6 mg/dL (0.6-1.0) 09/09/23 07:51
Glucose 70 mg/dl (70-99) 09/09/23 07:51
Vital Signs and I&O:
Vital Signs
Temp Pulse Resp BP Pulse Ox
98.6 F 97 16 104/68 95
09/09/23 11:33 09/09/23 11:33 09/09/23 11:33 09/09/23 11:33 09/09/23 11:33
Vital Signs
Temp Pulse Resp BP Pulse Ox
98.6 F 97 16 104/68 95
09/09/23 11:33 09/09/23 11:33 09/09/23 11:33 09/09/23 11:33 09/09/23 11:33
Intake & Output
09/07/23 09/08/23 09/09/23 09/10/23
06:59 06:59 06:59 06:59
Intake Total 0 / 2160
Balance 2160 / 2160
Physical Exam
Physical Exam
Gen: NAD, AA
HEENT: NC/AT, sclera anicteric
Neck: No JVD
CV: RRR, NL s1/s2
Lungs: Moderate end exp wheezing throughout on 3L NC
Abd: S/ND
Ext: No LE edema
Skin: Warm, dry
Neuro: Non-focal
[2023-09-09] MEDS: XOPENEX 0.63 MG INHALANT SOLUTION INH (13:10)
--- NOTE | 2023-09-09 14:42 | VATNOTE ---
Right midline due for routine dressing change, Patient request that the dressing change be deferred due to her very frail skin and scheduled for discharge 09/09
--- NOTE | 2023-09-09 14:49 | CM ---
CM met with pt
Probable d/c for tomorrow
Updates sent to [facility] via [facility]
Plan - Home with [facility]
Fax - [phone]
[2023-09-09 15:00] VITALS: BP 116/77
--- NOTE | 2023-09-09 17:03 | W.PN.ID1 ---
Date of Service
Date of Service: September 09, 2023
Today's Communication
Continue antibiotics
Assessment / Plan
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
-anal bleeding ulcers
- 09/03/23 s/p flex sig, suture of small rectal ulcer, Botox chemodenervation
- no prior history of genital HSV. Not sexually active since 5 yrs ago.
Left lower lobe pneumonia
Hypoxemia
Suspected exacerbation of COPD
Pulmonary RODRIGUEZ
Monoclonal B-cell lymphocytosis
P A-fib
Hypothyroidism
Gait dysfunction
Hx Steroid-induced myopathy
Recommendations:
Anal HSV, first episode. Continue valacyclovir 1000 mg po bid x 10 days through 09/14/23.
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
Same organism recovered from [facility]. Suspect contaminant versus colonizer.
Continue fluconazole through 09/14/23.
LFTs were normal 08/29
Repeat QTc essentially unchanged
S/P course of cefdinir
Outpatient follow-up in 4 to 8 weeks with me to discuss options.
����������������������������������������������������������
Chief Complaint
-: Other (candidal esophagitis)
Subjective / Review of Systems
Review of Systems: No Fever and No Chills
Vital Signs / Physical Exam
Vital Signs
Vital Signs
Temp Pulse Resp BP Pulse Ox
98.0 F 90 17 116/77 94
09/09/23 15:00 09/09/23 15:00 09/09/23 15:00 09/09/23 15:00 09/09/23 15:00
Physical Exam
Constitutional: No Acute Distress, Comfortable and Non-toxic
Eyes: Sclera Anicteric
Pulmonary: Non Labored
Neurological: Awake and Alert
Psychological: Calm
Objective Data
Lab Data
Lab Results
09/09/23 07:51
09/09/23 07:51
PT 12.6 Sec (11.4-14.6) 08/19/23 13:02
INR 0.96 08/19/23 13:02
APTT 22.9 Sec (23.4-35.0) L 08/19/23 13:02
Estimated Creat Clear 74 ml/min 09/09/23 07:51
Lactic Acid 1.9 mmol/L (0.7-2.0) 08/16/23 19:17
Total Bilirubin 1.0 mg/dl (0.2-1.3) 09/03/23 09:18
AST 21 U/L (14-36) 09/03/23 09:18
ALT 20 U/L (0-35) 09/03/23 09:18
Alkaline Phosphatase 39 U/L (38-126) 09/03/23 09:18
Most recent labs reviewed.
Micro Results:
08/22/23 09:56 Fungal Culture - Preliminary
Bronch Left Lower Lobe Yeast
08/22/23 09:56 Fungal Culture - Preliminary
Bronch Left Upper Lobe Culture in progress.
Positive cultures are reported as soon as detected.
Final report to follow in four to five weeks.
08/22/23 09:56 Acid Fast Bacilli Smear - Preliminary
Bronch Left Upper Lobe Acid Fast Bacilli Culture - Preliminary
Acid fast bacilli
M. avium-intracellular complex
Mycobacterial Sensitivity - Pending
08/22/23 09:56 Acid Fast Bacilli Smear - Preliminary
Bronch Left Lower Lobe Acid Fast Bacilli Culture - Preliminary
Acid fast bacilli
M. avium-intracellular complex
Specimen Source - Final
Mycobacterium tuberculosis DNA (PCR - Final
M. tuberculosis Rifampin (PCR) - Final
M. tuberculosis Complex Interpretat - Final
08/22/23 13:56 Fungus Mold Identification - Final
Bronch Left Lower Lobe Clavispora lusitaniae
08/19/23 16:02 Blood Culture - Final
Blood/Venous No Growth - Final Report
08/19/23 13:02 Blood Culture - Final
Blood/Venous No Growth - Final Report
08/22/23 09:56 Respiratory Culture - Final
Bronch Left Upper Lobe Usual Respiratory Kayla
Gram Stain - Final
08/22/23 09:56 Respiratory Culture - Final
Bronch Left Lower Lobe Usual Respiratory Kayla
Gram Stain - Final
08/21/23 11:11 Respiratory Culture - Final
Sputum Usual Respiratory Kayla
Gram Stain - Final
08/20/23 20:54 Respiratory Culture - Final
Sputum Gram Stain - Final
08/19/23 12:40 Urine Culture - Final
Urine NO GROWTH
08/19/23 12:39 Influenza Types A & B (DIEGO) - Final
Nasal Swab Negative for Influenza A & B, NAAT
Negative results must be combined with clinical observations
and patient history.
Nucleic Acid Amplification test (NAAT)performed on the
[employer] platform.
08/16/23 20:05 Urine Culture - Final
Urine NO GROWTH
09/01/2023 Anal ulcer biopsy: anus, edges of anal ulcer, biopsy: Ulcer and cellular changes consistent with herpes infection
[2023-09-09] MEDS: VITAMIN C 500 MG PO (17:26)
[2023-09-09] MEDS: VITAMIN D3 (cholecalciferol) 25 MCG PO (17:26)
[2023-09-09 19:30] VITALS: BP 116/63
[2023-09-09] MEDS: FLOVENT 220MCG 2 PUFF INH (19:38)
[2023-09-09] MEDS: CYMBALTA DELAYED RELEASE 60 MG PO (22:26)
[2023-09-09] MEDS: DALIRESP 500 MCG PO (22:28)
[2023-09-09] MEDS: SINGULAIR 10 MG PO (22:29)
[2023-09-09] MEDS: ESTRACE 0.01% VAGINAL CREAM 1 APPLIC VAG (22:29)
[2023-09-09 23:07] VITALS: BP 121/72
[2023-09-10] MEDS: TESSALON PERLES 100 MG PO ×2 (00:04→06:10)
[2023-09-10] MEDS: XANAX 0.5 MG PO (00:04)
[2023-09-10] MEDS: ULTRAM 50 MG PO ×2 (00:04→06:03)
[2023-09-10 03:04] VITALS: BP 121/65
[2023-09-10 06:00] VITALS: BMI 21.0
[2023-09-10] MEDS: TESSALON PERLES PO (06:03)
[2023-09-10] MEDS: TYLENOL 1000 MG PO (06:04)
[2023-09-10] MEDS: SYNTHROID 112 MCG PO (06:04)
[2023-09-10] MEDS: NEURONTIN 600 MG PO (06:04)
[2023-09-10 07:22] VITALS: BP 122/69
[2023-09-10] MEDS: NON-FORMULARY ITEM 1 UNIT INH (07:35)
[2023-09-10] MEDS: XOPENEX 0.63 MG INHALANT SOLUTION 0.630000000000000004 MG INH (07:35)
[2023-09-10] MEDS: FLOVENT 220MCG 2 PUFF INH (07:36)
[2023-09-10 08:00] VITALS: BP 119/83
[2023-09-10] MEDS: OSCAL 500 + D 500 MG PO (08:06)
[2023-09-10] MEDS: KCL 20 MEQ PO (08:07)
[2023-09-10] MEDS: CYMBALTA DELAYED RELEASE 30 MG PO (08:07)
--- NOTE | 2023-09-10 08:07 | W.PN.HOSP.TC ---
Today's Communication/Plan
-
discharge
Assessment / Plan
Assessment / Plan
Physical Exam
General: Not in acute distress
HEENT: Normocephalic, Atraumatic
Respiratory: Scattered wheezes and some crackles
Cardiac: Regular Rhythm and S1/S2
GI: Soft, Nontender and Nondistended. Positive bowel sounds.
Musculoskeletal: No Cyanosis and No Edema.

CT Head (as per radiologist's report) without IV contrast appreciated No acute intracranial abnormality
CT Chest W/o Iv Contrast (as per radiologist's report) appreciated Left base consolidation and/or atelectasis, small amount of right base atelectasis with shift of the mediastinum toward the left. Limited exam without IV contrast. No discrete
mediastinal or hilar mass identified however repeat imaging with IV contrast after treatment was recommended to exclude an occult process. Small bibasilar pleural effusions. Small to moderate amount of pericardial effusion
ECHO (as per optometric technician's report) appreciated
Normal biventricular size and systolic function without regional wall motion
abnormality.
No significant valvular disease.
No prior study available for comparison

Assessment/Plan
72 y/o female with complicated history including, but not limited to pAfib COPD Asthma Hypothyroidism Monoclonal B-cell Lymphocytosis Hypogammaglobulinemia intolerant to IgG infusion Arthritis p/w weakness confusion encephalopathy COPD exacerbation
PNA Hyponatremia Acute Kidney Injury persistent orthostatic hypotension. Since improved, hospitalization prolonged due to progressive anemia unclear source. Pending EGD rectal exam under anesthesia.
Symptomatic Hypovolemic Hyponatremia related to over-diuresis. Was feeling weak, unable to walk and confused
- Metolazone discontinued
- Lasix reduced to 40 mg daily, continued for Lower ext swelling weeping likely chronic lymphedema (outpatient lymphedema clinic recommended)
- Celebrex initially held, was previously resumed as below, and placed on hold with worsening anemia and persistent rectal bleeding last dose 08/29 in AM
- IVF completed
- Na improved to 130s
Osteoarthritis
-Sees screen tacker Dr. Colón outpatient at [place], being worked up for inflammatory arthritis
-outpt follow up recommended
Acute Confusion/Encephalopathy - Resolved
Generalized Weakness Below Baseline
Left Lower Lobe Consolidation on CT Imaging
Left Lower Lobe Atelectasis
Suspected COPD Exacerbation
Cough, Rhonchi
AFB smears positive
TSH low but T4 wnl
AM Cortisol
Likely suppression d/t chronic steroid use
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
-CT Head unremarkable
-Thiamine 100 mg PO daily
-outpt follow up Endocrine recommended.
Small bibasilar pleural effusions
Small to moderate amount of pericardial effusion
-Cardiology consult appreciated
-Echocardiogram ordered, results are above
-On echo, pericardial effusion is trivial
Orthostatic Hypotension
Dizziness/Lightheadedness on Standing
-patient not tolerating abd binder, has been using knee high TEDs only
-cardio consult appreciated, midodrine increased to 10 mg TID, cardizem and lasix discontinued (lasix later resumed reduced dose for lymphedema as above), LE compression NEO bandages applied
-2nd opinion cardio eval appreciated (patient requesting to follow with other Cardio group, specifically Dr Osman), lasix dose reduced to 20 mg daily, florinef also considered however patient declines.
Bright red blood through vagina and rectal areas - recurrence on September 05, 2023
Bright Red Blood Per Rectum on 08/21/23
Hemorrhoids
Anal Ulcer
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
Same organism recovered from [facility].
-Monitor Hgb transfuse goal Hgb>7, pretreat with tylenol and benadryl given hx transfusion rxn hives, use washed red cells given hx hypogammaglobulinemia
-outpatient OBGYN follow up
GI eval appreciated Colonoscopy performed 08/27
� � � � � � � � � � � '- Non-bleeding internal and external hemorrhoids.
�� � � � � � � � � � � - Diverticulosis in the entire examined colon.
�� � � � � � � � � � � - The examination was otherwise normal.
�� � � � � � � � � � � - One 4 mm polyp in the descending colon, removed with
�� � � � � � � � � � � a jumbo cold forceps. Resected and retrieved.
�� � � � � � � � � � � - One 8 mm polyp in the ascending colon, removed with
�� � � � � � � � � � � a hot snare. Resected and retrieved.'
GI eval appreciated upper endoscopy performed 09/01
'Patient had 2 small angioectasias in the small bowel
which can contribute to bleeding.
- Esophageal plaques were found, consistent with
candidiasis.
- 3 cm hiatal hernia.
- Normal stomach.
- Two angioectasias in the duodenum. Treated with
argon plasma coagulation (APC). Clip was placed over
the one in the 2nd portion.
- No specimens collected.
Continue fluconazole x 14 days to treat the esophageal candidiasis above.
Bleeding and anemia persisted worsened
Proton pump inhibitor PO daily while inpatient, then ok for as needed.
CTA abd pelvis appreciated no active bleeding
flex sig performed 08/29 anal fissure and hemorrhoids noted
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
findings could be related to immunosuppression
Continue Valacyclovir x 10 days through 09/14/23.
CRS on 09/04/23 performed again rectal exam under anesthesia, rigid proctosigmoidoscopy, suture of small rectal ulcer, Botox chemodenervation
Continue Calmol 4 suppositories 4 times daily, and fiber supplementation, and daily sitz baths
Continue nifedipine with lidocaine twice daily if patient finds it beneficial
CRS eval appreciated 09/08 stable for outpatient follow up.
Normocytic Anemia
Anemia of Chronic Disease
Patient reported remote history adverse rxn blood transfusion hives all over
Monoclonal B cell lymphocytosis
Immunosuppressed with undetectable IgG and IgA levels
-Iron Studies appreciated AOCD with Iron level wnl
-Vit B12 non-deficient
-Hematology Eval Appreciated
-September 01, 2023: on this date, patient prophylactically transfused (prior to EUA above) 1PRBC irradiated as per Hematology with premedications Tylenol 650 mg PO, Benadryl 50 mg IV, Pepcid 20 mg IV, Solucortef 100 mg IV tolerated well.
History of hypogammaglobulinemia Suspected to be related to underlying lymphoproliferative disorder.
Intolerant to IVIg transfusions in the past.
Low threshold for abx initiation if new fevers or infectious symptoms
confirmed IgA IgG IgM deficient 08/26
Hypokalemia resolved at this time
-monitor and replete as necessary
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
Bladder Spasms
Reported urinary clots
-Urology consult appreciated, cont outpt follow up with urogynecologist recommended
-Suspected atrophic vaginitis, Estrace cream started, vaginal bleeding since resolved, outpt urogyn follow up recommended, cream completed on discharge
Severe COPD
Prior history of severe persistent asthma
Chronic Hypoxic Respiratory Failure
Acute on chronic SOB due to recent episodes of strep PNA followed by COVID with deconditioning and CHF
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
Left Lower Lobe PNA , suspected RODRIGUEZ coinfection likely present on admission
-Recent admissions for Strep pneumonia and COVID
-Patient alternates 6 weeks coarse of doxycycline and Ceftin - Currently on doxycycline
-Switched to PO prednisone taper from Dexamethasone IV - as per pulmonary. Decrease Prednisone by 10 mg every 5 days, should be discharged on 10 mg until seen in pulmonary office.
-Continue Daliresp
-Continue fluticasone and salmeterol
-Continue levalbuterol prn
-Pulm eval appreciated
-Bronchoscopy performed on 08/22/23: follow bronchoalveolar lavage and cultures results acid fast bacilli positive pending speciation, PCR for TB however neg, outpt follow up ID recommended
-Infectious Disease consulted appreciated, Cefepime converted to cefdinir, no need for isolation/quarantine at this time. Cefdinir completed 08/29
Paroxysmal Atrial Fibrillation s/p Ablation
-Patient is not on anticoagulation as outpatient
-Continue diltiazem discontinued as above
Sacrum Healing Stage 3 pressure injury, POA
-Continue wound care
Anxiety/Depression
-Continue Duloxetine and alprazolam
Hypothyroidism
-Continue levothyroxine
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
-Continue gabapentin and duloxetine
-Gabapentin at max dose 1800 mg at 3 divided doses for her Cr clearance, transition to pregabalin offered patient however declines at this time
Arthritis
-home celecoxib resumed 08/25, discontinued 08/29 d/t worsening anemia persistent rectal bleed,
-celecoxib subsequently substituted with tramadol prn ordered, appears to be tolerating well at this time however symptoms ('locking joints') remain uncontrolled
-discussion with Rheumatology as above
Environment/Seasonal Allergies
-Continue fexofenadine and montelukast
History of Steroid-Induced Myopathy
PT/OT appreciated HH
DVT proph: (Previously Lovenox discontinued due to Bleeding as above) TERRI stockings, SCDs
GI ppx: protonix
Code Status: DNR/DNI
Medically stable for discharge home with home services and outpatient follow up recommendations.
Total Time Preparing Discharge ___60____ minutes including examination of the patient, summary of the hospital stay, instructions for continuing care to all relevant caregivers; and preparation of discharge records, prescriptions, and referral
forms if necessary.
Anticipated Discharge: Today
Subjective/Interval History
-
Date of Service: September 10, 2023
Seen and examined at bedside in no acute distress. appears well at this time. Patient denies new acute issues at this time. Eager to go home.
Objective Data
-
Labs:
Laboratory Results
09/10/23
07:30
Hgb Pending
Hct Pending
Vital Signs:
Vital Signs
Temp Pulse Resp BP Pulse Ox
98.3 F 100 18 119/83 95
09/10/23 07:22 09/10/23 08:00 09/10/23 08:00 09/10/23 08:00 09/10/23 07:41
I&O
09/09/23 09/10/23 09/11/23
06:59 06:59 06:59
Intake Total 2159
Balance 2159 / 2159
[2023-09-10] MEDS: DIFLUCAN 200 MG PO (08:08)
[2023-09-10] MEDS: VALTREX 1000 MG PO (08:08)
[2023-09-10] MEDS: Pyridium 100 MG PO (08:08)
[2023-09-10] MEDS: LASIX 20 MG PO (08:09)
[2023-09-10] MEDS: FLOMAX 0.800000000000000044 MG PO (08:09)
[2023-09-10] MEDS: DELTASONE 30 MG PO (08:10)
[2023-09-10] MEDS: ProAmatine 10 MG PO (08:11)
[2023-09-10] MEDS: VITAMIN B-12 500 MCG PO (08:11)
[2023-09-10] MEDS: PROTONIX 40 MG PO (08:13)
[2023-09-10] MEDS: VITAMIN B1 100 MG PO (08:13)
[2023-09-10 08:15] LABS: Hematocrit 28.5 % (37.0-47.0); Hemoglobin 9.1 g/dL (12.0-16.0)
[2023-09-10] MEDS: NON-FORMULARY ITEM 1 SPRAY NASAL (08:16)
[2023-09-10] MEDS: HYDROCORTISONE 2.5% CREAM 1 APPLIC TOPICAL (08:17)
[2023-09-10] MEDS: NON-FORMULARY ITEM 2 SPRAY NASAL (08:17)
[2023-09-10] MEDS: NON-FORMULARY ITEM 1 UNIT PO (08:17)
[2023-09-10] MEDS: MIRALAX PO (08:19)
[2023-09-10] MEDS: METAMUCIL, KONSYL PO (08:19)
--- NOTE | 2023-09-10 09:52 | W.DCSUMMARY ---
Discharge Summary
Discharge Data
Date of Admission: 08/16/23
Date of Discharge: 09/10/23
-
Pending Results: Yes
Additional Pending Results:
official culture results
Hospital Course
72F w/ ext pmhx including but not limited to Paroxysmal AFib, COPD, Asthma, Hypothyroidism, and Monoclonal B-cell lymphocytosis Hypogammaglobulinemia intolerant to IgG infusion Arthritis p/w with multiple complaints and abnormal lab values during
routine lab work. Pt states she was hospitalized at for a week with strep pneumonia and discharged on 07/14/23. She then went to [facility] for one week and was admitted to [facility] with COVID for one week. After discharge she
returned to [facility] rehab for two weeks and has since been home for one week. She reported feeling short of breath and experienced intermittent coughing without sputum production. She also reported significant lower extremity edema for which she
was started on Lasix 40mg twice daily with the addition of Metolazone 2.5mg daily by a provider outside of . Her recent blood work showed significant hyponatremia and she was referred to ED for evaluation.� Daughter at the bedside noted slight
confusion, and patient reported feeling very foggy. CT Head without IV contrast noted no acute intracranial abnormality. CT Chest W/o Iv Contrast noted Left base consolidation and/or atelectasis, small amount of right base atelectasis with shift
of the mediastinum toward the left. Limited exam without IV contrast.� No discrete mediastinal or hilar mass identified however repeat imaging with IV contrast after treatment was recommended to exclude an occult process.� Small bibasilar pleural
effusions. Small to moderate amount of pericardial effusion. ECHO noted Normal biventricular size and systolic function without regional wall motion abnormality. No significant valvular disease. No prior study available for comparison. Hospital
course was notable for weakness confusion encephalopathy COPD exacerbation PNA Hyponatremia Acute Kidney Injury persistent orthostatic hypotension.� Hospitalization was further prolonged due to progressive anemia likely multifactorial. Symptomatic
Hypovolemic Hyponatremia related to over-diuresis, Metolazone was discontinued. Lasix was reduced to 40 mg daily, continued for Lower ext swelling weeping likely chronic lymphedema (outpatient lymphedema clinic recommended). With short course IVF,
Na improved to 130s. Celebrex was initially held due to hyponatremia, resumed but later placed on hold with worsening anemia and persistent rectal bleeding. 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
Acute Confusion/Encephalopathy resolved. Left Lower Lobe Consolidation on CT Imaging with Left Lower Lobe Atelectasis, suspected exacerbation, cough, rhonchi, bronchoscopy cultures returned positive for RODRIGUEZ for which ID recommended outpatient
follow up. Patient completed a course of antibiotics as per ID recommendations for pneumonia. She was placed on a slow steroid taper as per pulmonary recommendations. TSH low but T4 wnl, AM Cortisol also low, likely suppression, secondary
hypopituitarism, d/t chronic steroid use. CT head unremarkable, outpatient follow up with Endocrine was recommended. Cardiology evaluated pericardial effusion as noted on imaging and noted no acute intervention, amount trivial. Orthostatic
Hypotension, Dizziness/Lightheadedness on standing, patient not tolerating abd binder, has been using knee high TEDs only. Cardio evaluated and midodrine was increased to 10 mg TID, cardizem and lasix discontinued (lasix later resumed reduced dose
for lymphedema as above), LE compression NEO bandages applied. 2nd opinion cardio eval appreciated (patient requesting to follow with other Cardio group, specifically Dr Osman), lasix dose was further reduced to 20 mg daily, florinef also
considered however patient declined. Hospital course was also complicated with rectal and vaginal bleeding. Vaginal bleeding likely d/t atrophic vaginitis resolved with topical estrogen. Outpatient obgyn follow up was recommended. Rectal bleeding
was determined to be due o hemorrhoids and anal ulceration. Esophageal candidiasis was found on EGD for which patient was treated with Fluconazole.
Colonoscopy performed 08/27 showed:
� � � � � � � � � � � - Non-bleeding internal and external hemorrhoids.
�� � � � � � � � � � � - Diverticulosis in the entire examined colon.
�� � � � � � � � � � � - The examination was otherwise normal.
�� � � � � � � � � � � - One 4 mm polyp in the descending colon, removed with
�� � � � � � � � � � � a jumbo cold forceps. Resected and retrieved.
�� � � � � � � � � � � - One 8 mm polyp in the ascending colon, removed with
�� � � � � � � � � � � a hot snare. Resected and retrieved.'
Upper endoscopy performed 09/01 showed:
� � � � � � � � � � � � 'Patient had 2 small angioectasias in the small bowel
�� � � � � � � � � � � which can contribute to bleeding.
�� � � � � � � � � � � - Esophageal plaques were found, consistent with
�� � � � � � � � � � � candidiasis.
�� � � � � � � � � � � - 3 cm hiatal hernia.
�� � � � � � � � � � � - Normal stomach.
�� � � � � � � � � � � - Two angioectasias in the duodenum. Treated with
�� � � � � � � � � � � argon plasma coagulation (APC). Clip was placed over
�� � � � � � � � � � � the one in the 2nd portion.
�� � � � � � � � � � � - No specimens collected.
CTA abd pelvis appreciated no active bleeding. Flex sig performed 08/29, anal fissure/ulceration and hemorrhoids noted. CRS evaluated 09/01 with rectal exam performed under anesthesia, biopsy of anal ulcer returned consistent with herpes infection
for which ID placed patient on Valacyclovir x 10 days through 09/14/23.
CRS on 09/04/23 performed again rectal exam under anesthesia, rigid proctosigmoidoscopy, suture of small rectal ulcer, Botox chemodenervation. Normocytic Anemia
Anemia of Chronic Disease, patient reported remote history adverse rxn blood transfusion hives all over, Immunosuppressed with undetectable IgG and IgA levels, patient received prophylactic transfusion 09/01 1PRBC irradiated as� per Hematology with
premedications Tylenol 650 mg PO, Benadryl 50 mg IV, Pepcid 20 mg IV, Solucortef 100 mg IV, tolerated well. Medically stabilized, patient was discharged home with home services and outpatient follow up recommendations.
Discharge Plan
-
Patient Disposition: Home with Home Care
Discharge Diagnosis/Procedures: Pneumonia, COPD/Asthma exacerbation, Chronic Hypoxic Respiratory Failure, Pulmonary RODRIGUEZ, Monoclonal B-cell lymphocytosis, hypogammaglobulinemia, Immunocompromised, history intolerance to IgG infusion, paroxysmal
atrial fibrillation, hypothyroidism, history steroid induced myopathy, Esophageal Candidiasis, Rectal Bleeding, Anal Herpes Ulcer, Orthostatic Hypotension, Hyponatremia, Inflammatory Arthritis, Acute Metabolic Encephalopathy resolved, Hemorrhoids,
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
Condition: Fair
Diet: Regular
Activity: As tolerated and With Walker
Driving Restrictions: Not until seen by your Dr
Bathing Restrictions: None
Blood Work: Please repeat CBC and BMP in 2-3 days of discharge with results to be forwarded to your primary care provider and Hematology (script has been provided to facilitate)
Other Services: VN, PT and OT
Activity Restrictions/Additional Instructions:
Follow Up with primary care provider, colorectal surgery, hematology, urogynecologist, endocrinology, pulmonology, cardiology, rheumatology, infectious disease, and GI recommended.
Wound Care Instructions
Sacrum: clean with soap and water, skin prep periwound, smear of honey gel, adaptic and dry dressing, change every other day and prn drainage.
Offloading air cushion when sitting, can take upon discharge
Frequent turning when in bed
Increase protein in diet
Follow up at wound care center if wound not healing, call for an appointment.
Please monitor home blood pressures and if they are consistently above 120-130 mmHg systolically, call cardiology office [phone] for instructions on midodrine.
Home Celecoxib has been discontinued due to concerns contributing to anemia and hyponatremia
Home Gabapentin has been reduced to total 1800 mg daily due to renal function.
Cardizem has been discontinued due to ongoing symptomatic orthostatic hypotension
fluconazole prescribed for esophageal candidiasis and valacyclovir prescribed for Anal Herpes Ulceration (last day for both 09/13)
benzonatate 100 mg capsule 100 mg PO TIDPRN PRN cough
cocoa butter-zinc oxide 76 %-10 % rectal suppository (Calmol-4) 1 supp MI [id number] PRN rectal bleeding 7 days #12 ea
furosemide 20 mg tablet 20 mg PO DAILY reduced from prior home dose due to symptomatic hypovolemia contributing to hypotension (home metolazone similarly discontinued for this reason)
hydrocortisone 2.5 % topical cream 1 applic topical BID for rectal hemorrhoids
midodrine 10 mg tablet 10 mg PO TID for orthostatic hypotension
pantoprazole 40 mg tablet,delayed release 40 mg PO DAILY GI bleed prophylaxis while on steroids
prednisone taper for Asthma/COPD exacerbation has been prescribed 20 mg daily for 5 days then 10 mg daily from then on until seen by your computer service technician. Please follow up with primary care provider and/or computer service technician for refill as necessary
tramadol 50 mg tablet 50 mg PO Q6HPRN PRN as needed for moderate severe arthritic pain 7 day supply
Please take medications as prescribed/recommended and follow up with primary care provider and/or other healthcare provider involved in your care for refills and/or further adjustments to your medication regimen as necessary.
Referrals:
Francis Mason MD [Active] - in three to four weeks ([place] in 3-4 weeks)
Benny Vance MD [Active] - in one week
Davi Reno DO [Active] - in two to four weeks
Marley Ochoa MD [Active] - in four to six weeks (anemia and hemorrhoids in 4-6wks)
Shanti Goodwin MD [Consulting Staff] - in two weeks
Baljinder Carlin DO [Active] - in four to six weeks
oRbert Hayward MD [Active] - in two weeks
Susy Osman DO [Active] - 10/15/23 11:00 am (You have an appt to see Dr. Osman at the [place] office on 10/15/23 at 11 AM. Please call [phone] if you need to reschedule.)
Feliciano Pink MD [Active] - in two weeks
Juan Kamara MD [Family Provider] - in one week
Prescriptions:
New
midodrine 10 mg tablet
10 mg PO TID 30 Days Qty: 90 0RF
Calmol-4 76-10 % Suppository
1 supp MI [id number] PRN (Reason: rectal bleeding) 7 Days Qty: 12 0RF
prednisone 10 mg Tablet
See Rx Instructions .ROUTE .COMPLEX Qty: 45 0RF
Rx Instructions:
Take By Mouth:
20 mg daily x5 days, then 10 mg daily from then until assessed by Pulmonary
fluconazole 200 mg Tablet
200 mg PO DAILY Qty: 4 0RF
Rx Instructions:
Continue through 09/13 then stop
hydrocortisone 2.5 % Cream
1 applic topical BID Qty: 20 0RF
furosemide 20 mg Tablet
20 mg PO DAILY 30 Days Qty: 30 0RF
benzonatate 100 mg Capsule
100 mg PO TIDPRN PRN (Reason: cough) Qty: 30 0RF
pantoprazole 40 mg Tablet,Delayed Release (Dr/Ec)
40 mg PO DAILY 30 Days Qty: 30 0RF
tramadol 50 mg Tablet
50 mg PO Q6HPRN PRN (Reason: moderate severe pain) 7 Days Qty: 28 0RF
valacyclovir 500 mg Tablet
1,000 mg PO BID 5 Days Qty: 18 0RF
Rx Instructions:
Continue through 09/13 then stop
thiamine HCl (vitamin B1) 100 mg Tablet
100 mg PO DAILY 30 Days Qty: 30 0RF
Continued
gabapentin 600 mg tablet
600 mg PO TID@0700,1500,2200
montelukast 10 mg tablet
10 mg PO HS
fluticasone propionate 50 mcg/actuation spray,suspension
2 spray INTRANASAL BID
levothyroxine 112 mcg tablet
112 mcg PO MOWEFR@07
fexofenadine 180 mg Tablet
180 mg PO DAILY
levothyroxine 125 mcg tablet
125 mcg PO SUTUTHSA@07
azelastine 137 mcg (0.1 %) aerosol,spray
1 spray INTRANASAL DAILY
krill oil
1 cap PO DAILY
doxycycline hyclate 100 mg capsule
100 mg PO BID Qty: 60 0RF
Hold Instructions: can go back to this regimen when done with levaquin
Patient Comments:
07/03/2023, patient states that she takes this medication BID for 6 weeks and then swtiches to their Cefuroxime BID for 6 weeks and then they go back to their Doxycylcine for 6 weeks and repeat. Patient states that she starts taking this
medication BID on Friday (07/07/2023). Patient is currently taking her Cefuroxime for 6 weeks.
cyanocobalamin (vitamin B-12) 1,000 mcg Tablet
500 mcg PO DAILY
ascorbic acid (vitamin C) [Vitamin C] 500 mg Tablet
500 mg PO QPM
Serevent Diskus 50 mcg/dose Blister With Device
1 inh INHALATION R BID
cefuroxime axetil 500 mg Tablet
500 mg PO BID
Hold Instructions: can go back to this regimen when done with levaquin
Patient Comments:
07/03/2023, patient states that she takes this medication BID for 6 weeks and then swtiches to their Doxycycline BID for 6 weeks and then they go back to their Cefuroxime for 6 weeks and repeat. Patient is currently taking this medication for 6
weeks. Patient states that she starts her Doxycylcine on Friday (07/07/2023).
duloxetine 30 mg Capsule,Delayed Release(Dr/Ec)
30 mg PO DAILY
Patient Comments:
Pt states '30 at breakfast and 60 at dinner.'
levalbuterol tartrate 45 mcg/actuation Hfa Aerosol Inhaler
1 puff INHALATION R Q8HPRN PRN (Reason: sob)
cholecalciferol (vitamin D3) 25 mcg (1,000 unit) Tablet
25 mcg PO .4 TIMES A WEEK@1700
Patient Comments:
07/03/2023, patient states that they take this medication 4 times a week whenever they think to add it to their pill box.
roflumilast [Daliresp] 500 mcg Tablet
500 mcg PO HS
fluticasone furoate 200 mcg/actuation Blister With Device
2 inh INHALATION R BID
Patient Comments:
Pt reports 'it is 250 mcg'
turmeric 400 mg Capsule
400 mg PO BID
Citracal plus D
1 tab PO BID
levalbuterol HCl 1.25 mg/3 mL Solution For Nebulization
1.25 mg inhalation R Q6HPRN PRN (Reason: sob/wheeze) Qty: 0 0RF
Patient Comments:
Pt reports 'it is the next lower dose, 0.625.'
alprazolam 0.5 mg Tablet
0.5 mg PO HS Qty: 3 0RF
phenazopyridine [Pyridium] 100 mg Tablet
100 mg PO TID
Tylenol Arthritis 650 tablet tablet
1,300 PO BID
Patient Comments:
Pt reports taking it 'twice a day and sometimes three times a day.'
Fluticasone Propionate (Flixotide) 250 mcg inhaler
2 inh inhalation R BID
Patient Comments:
Blister with Device
benzonatate 100 mg capsule
200 mg PO TID
duloxetine 30 mg capsule
60 mg PO QPM
tamsulosin capsule
0.8 mg PO DAILY
Discontinued
celecoxib 200 mg capsule
200 mg PO BID
gabapentin 300 mg capsule
300 mg PO HS
Rx Instructions:
07/03/2023, taken w/ 600mg = 900mg @2200.
furosemide [Lasix] 40 mg Tablet
40 mg PO BID@0800,1600
metolazone [Zaroxolyn] 2.5 mg Tablet
2.5 mg PO DAILY
prednisone 10 mg Tablet
30 mg PO DAILY
midodrine 5 mg Tablet
5 mg PO DAILY
midodrine 2.5 mg Tablet
2.5 mg PO DAILY@1400
diltiazem HCl 30 mg Tablet
30 mg PO TID
Discharge Orders:
Discharge Patient (As Directed); Ordered 09/10/23
Ordered By: Flavio Smith
Discharge Date and Time
Discharge Date/Time: 09/10/23 11:18
--- NOTE | 2023-09-10 10:08 | CM ---
Addendum entered by Cee Linares 09/10/23 10:17:
[facility] Fax - [phone]
Addendum entered by Cee Linares 09/10/23 10:11:
Contacted [id number], Carmela Zamudio; she will be at the hospital ~11:15 to picker and sorter load and unload patent
Original Note:
Plan: discharge to home with home care today
--- NOTE | 2023-09-10 10:42 | W.PN.CARDCBS ---
Today's Communication / Plan
-
Stable cardiac status, we will sign off and schedule outpatient follow up with Dr. Osman as requested
Impression / Plan
-
PCP: Dr. Juan Kamara
Cardiology: Dr. Cedeño
Impression:
Admitted with symptomatic hypovolemic hyponatremia 08/16/23
Osteoarthritis
Acute exacerbation asthma, now severe persistent asthma requiring biologic therapy
Recent admission for community acquired PNA and asthma exacerbation 07/03/23 until 07/14/22
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
Chronic SOB, likely RODRIGUEZ per pulm
Monoclonal B-cell lymphocytosis
Immunoglobulin deficiency per patient report
Paroxysmal Afib/tach
Hypothyroidism
Echo 08/20/23: Normal biventricular function size and systolic function without regional WMA, no significant valve disease
Patient was admitted to 08/16/[address] Cedeño, but how now requested to be seen by Dr. Osman so cardiology has been consulted. Patient used to live in [place] and followed with a frame stylist from [place] in the [place]
office. Patient says that she was told she had Afib and had an ablation at [place] as recently as 2016. More recently patient lost her and mother and moved to this area to be closer to family. 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 Patient reports making an outpatient appt to see Dr. Cedeño, but missed the appointment because she was hospitalized. Patient was seen as an inpatient by cardiology this admission for orthostasis. Patient was taking midodrine 5 mg
AM and 2.5 mg at 1400 daily prior to admission for symptomatic hyponatremia. On admission her outpatient dose of Lasix 40 mg BID and metolazone 2.5 mg daily was held. She was seen by Nephrology. Patient reports increasing edema when steroids were
started to help with her asthma and that as her edema worsened her oxygenation worsened so her Lasix was restarted. Patient has now been admitted for more than 3 weeks and in that time was also treated for lower GI bleed due to rectal ulcer due to
HSV. Patient is now asking for Dr. Osman to be her frame stylist instead of Dr. Cedeño and patient says that she wants to go home on Friday.
Plan:
-Ongoing orthostasis, suspect adrenal insufficiency and over diuresis are contributing
-Will likely require slow wean of her steroids
-Reduced Lasix to 20 mg daily with plan to take additional PRN doses
-Continue Midodrine 10 mg TID
-Patient is not agreeable to initiation of Florinef
-Telemetry reviewed with EP, episode of wide complex tachycardia is likely Atach with aberrancy
-Explained to patient that I would not recommend AV logan lit given orthostasis
-We will arrange for outpatient follow up with Dr. Nichols as requested
Progress Note - Electrotype Caster
Subjective
Date of Service: September 10, 2023
NAOE. Still reporting mild LE edema. Breathing is comfortable on supplemental O2. Reports palpitations during episode of paroxysmal Atach yesterday.
Objective
Labs:
09/10/23 07:30
09/09/23 07:51
Labs
Hgb 9.1 g/dL (12.0-16.0) L 09/10/23 07:30
Hct 28.5 % (37.0-47.0) L 09/10/23 07:30
Plt Count 186 10^3/uL (130-400) 09/09/23 07:51
PT 12.6 Sec (11.4-14.6) 08/19/23 13:02
INR 0.96 08/19/23 13:02
APTT 22.9 Sec (23.4-35.0) L 08/19/23 13:02
Sodium 135 mmol/L (135-145) 09/09/23 07:51
Potassium 4.0 mmol/L (3.5-5.1) 09/09/23 07:51
BUN 14 mg/dl (7-17) 09/09/23 07:51
Creatinine 0.6 mg/dL (0.6-1.0) 09/09/23 07:51
Glucose 70 mg/dl (70-99) 09/09/23 07:51
Vital Signs and I&O:
Vital Signs
Temp Pulse Resp BP Pulse Ox
98.3 F 100 18 119/83 95
09/10/23 07:22 09/10/23 08:09 09/10/23 08:00 09/10/23 08:09 09/10/23 07:41
Vital Signs
Temp Pulse Resp BP Pulse Ox
98.3 F 100 18 119/83 95
09/10/23 07:22 09/10/23 08:09 09/10/23 08:00 09/10/23 08:09 09/10/23 07:41
Intake & Output
09/08/23 09/09/23 09/10/23 09/11/23
06:59 06:59 06:59 06:59
Intake Total 2159
Balance 2159
Physical Exam
Physical Exam
Gen: NAD, AAOx3
HEENT: NC/AT, sclera anicteric
Neck: No JVD
CV: RRR, NL s1/s2
Lungs: Mild wheezing on 3L NC
Abd: S/ND
Ext: No LE edema
Skin: Warm, dry
Neuro: Non-focal
== END 2023-09-10 11:18 | disposition home health service (06) | DRG 981 ==
LOC: 4 WEST ACU 22:18
PROVIDERS: Hospitalist; Internal Medicine; Internal Medicine Critical Care Medicine; Internal Medicine Gastroenterology; Internal Medicine Hematology & Oncology; Physician Assistant; Physician Assistant Medical; Surgery; ADMITTING PHYSICIAN Hospitalist; ATTENDING PHYSICIAN Internal Medicine; CONSULT PHYSICIAN Internal Medicine Cardiovascular Disease; CONSULT PHYSICIAN Internal Medicine Gastroenterology; CONSULT PHYSICIAN Internal Medicine Hematology & Oncology; CONSULT PHYSICIAN Student in an Organized Health Care Education/Training Program; CONSULT PHYSICIAN Urology; EMERGENCY PHYSICIAN Student in an Organized Health Care Education/Training Program; FAMILY PHYSICIAN Internal Medicine; OTHER PHYSICIAN Internal Medicine; OTHER PHYSICIAN Internal Medicine Infectious Disease; OTHER PHYSICIAN Internal Medicine Interventional Cardiology; OTHER PHYSICIAN Surgery
PROC: 0B9G8ZX Drainage of Left Upper Lung Lobe, Via Natural or Artificial Opening Endoscopic, Diagnostic (ICD-10-PCS; 2023-08-22)
PROC: 0B9J8ZX Drainage of Left Lower Lung Lobe, Via Natural or Artificial Opening Endoscopic, Diagnostic (ICD-10-PCS; 2023-08-22)
PROC: 0DBK8ZZ Excision of Ascending Colon, Via Natural or Artificial Opening Endoscopic (ICD-10-PCS; 2023-08-27)
PROC: 0DBM8ZZ Excision of Descending Colon, Via Natural or Artificial Opening Endoscopic (ICD-10-PCS; 2023-08-27)
PROC: 0DJD8ZZ Inspection of Lower Intestinal Tract, Via Natural or Artificial Opening Endoscopic (ICD-10-PCS; 2023-08-29)
PROC: 0DBQXZX Excision of Anus, External Approach, Diagnostic (ICD-10-PCS; 2023-09-01)
PROC: 0D5QXZZ Destruction of Anus, External Approach (ICD-10-PCS; 2023-09-01)
PROC: 0D598ZZ Destruction of Duodenum, Via Natural or Artificial Opening Endoscopic (ICD-10-PCS; 2023-09-01)
PROC: 30233N1 Transfusion of Nonautologous Red Blood Cells into Peripheral Vein, Percutaneous Approach (ICD-10-PCS; 2023-09-01)
PROC: 0DQP7ZZ Repair Rectum, Via Natural or Artificial Opening (ICD-10-PCS; 2023-09-03)
PROC: 3E0H7GC Introduction of Other Therapeutic Substance into Lower GI, Via Natural or Artificial Opening (ICD-10-PCS; 2023-09-03)
DX: E87.1 Hypo-osmolality and hyponatremia (principal); G93.41 Metabolic encephalopathy; L89.153 Pressure ulcer of sacral region, stage 3; D80.1 Nonfamilial hypogammaglobulinemia; J45.51 Severe persistent asthma with (acute) exacerbation; J98.11 Atelectasis; I31.39 Other pericardial effusion (noninflammatory); B37.81 Candidal esophagitis; C91.10 Chronic lymphocytic leukemia of B-cell type not having achieved remission; D62 Acute posthemorrhagic anemia; J44.0 Chronic obstructive pulmonary disease with (acute) lower respiratory infection; J44.1 Chronic obstructive pulmonary disease with (acute) exacerbation; J96.11 Chronic respiratory failure with hypoxia; T17.590A Other foreign object in bronchus causing asphyxiation, initial encounter; E27.3 Drug-induced adrenocortical insufficiency; A31.0 Pulmonary mycobacterial infection; A60.1 Herpesviral infection of perianal skin and rectum; Z66 Do not resuscitate; E03.9 Hypothyroidism, unspecified; I48.0 Paroxysmal atrial fibrillation; E87.6 Hypokalemia; W44.F9XA Other object of natural or organic material, entering into or through a natural orifice, initial encounter; E86.1 Hypovolemia; T50.2X5A Adverse effect of carbonic-anhydrase inhibitors, benzothiadiazides and other diuretics, initial encounter; R33.9 Retention of urine, unspecified; N36.8 Other specified disorders of urethra; I95.1 Orthostatic hypotension; K64.4 Residual hemorrhoidal skin tags; K64.8 Other hemorrhoids; D12.2 Benign neoplasm of ascending colon; D12.4 Benign neoplasm of descending colon; D63.8 Anemia in other chronic diseases classified elsewhere; E87.8 Other disorders of electrolyte and fluid balance, not elsewhere classified; K44.9 Diaphragmatic hernia without obstruction or gangrene; K57.30 Diverticulosis of large intestine without perforation or abscess without bleeding; K60.2 Anal fissure, unspecified; M06.4 Inflammatory polyarthropathy; T50.1X5A Adverse effect of loop [high-ceiling] diuretics, initial encounter; G57.91 Unspecified mononeuropathy of right lower limb; K31.819 Angiodysplasia of stomach and duodenum without bleeding; F32.A Depression, unspecified; F41.9 Anxiety disorder, unspecified; R26.89 Other abnormalities of gait and mobility; Z11.52 Encounter for screening for COVID-19; Z79.899 Other long term (current) drug therapy; Z86.16 Personal history of COVID-19; Z87.01 Personal history of pneumonia (recurrent); Z87.891 Personal history of nicotine dependence
CPT/HCPCS: 88305; 70450; 71046; 71250; 74018; 74174; 80048; 80053; 81003; 81015; 82040; 82140; 82248; 82533; 82550; 82607; 82728; 82746; 82784; 82805; 83010; 83540; 83550; 83605; 83690; 83735; 83880; 83930; 84100; 84145; 84439; 84443; 85014; 85018; 85025; 85027; 85045; 85610; 85730; 86235; 86850; 86900; 86901; 86920; 87015; 87040; 87070; 87086; 87102; 87106; 87107; 87116; 87153; 87158; 87205; 87502; 87556; 87798; 87811; 88112; 93005; 93306; 94060; 94640; 96374; 97110; 97112; 97116; 97162; 97167; 97530; 97535; 99285; J0585; P9058; Q9967

== ENCOUNTER → 2023-12-16 10:45 | Outpatient (REF) | payer MEDICARE, OTHER, SELFPAY | LOC: HWRAD 10:45 | PROVIDERS: ATTENDING PHYSICIAN Internal Medicine Critical Care Medicine; FAMILY PHYSICIAN Internal Medicine; REFERRING PHYSICIAN Internal Medicine Pulmonary Disease | DX: A31.0 Pulmonary mycobacterial infection (principal); J47.9 Bronchiectasis, uncomplicated | CPT/HCPCS: 71250 ==

== ENCOUNTER 2024-04-14 09:28 | Day surgery (SDC) | payer MEDICARE, OTHER, SELFPAY ==
--- NOTE | 2024-04-14 11:09 | ITS.CL.IMPLP ---
[employer] - Implant Loop
Implant Loop
Procedure Report:
Date of Procedure: 04/14/24
Primary patient relations manager: Dr Susy Nichols
Procedure: Insertable Loop Recorder Implantation
Indication:
Atrial fibrillation
Procedure:
The patient was brought to the procedure area in a fasting state. The anterior chest was prepped and draped in standard sterile fashion. The fourth intercostal space along the left sternal border was identified and this area was anesthetized with 10
mL of 1% lidocaine. After gathering the skin in this area, a small punch incision was made at approx intercostal space 4-5 at left costo-sternal junction using the provided scalpel/punch tool. The loop recorder was loaded into the tunneling device.
A tunnel was created in the subcutaneous tissue at a 45� angle along the coronal plane away from the sternum and towards the left flank. The tunneling device was inverted and the plunger was depressed, inserting the loop recorder into the
subcutaneous space. The tunneling device was removed. Manual pressure provide hemostasis. Adequate signal was confirmed. The skin was closed with steri-strips. The estimated blood loss was < 1 cc. A clean dressing was placed over the wound.
There were no complications.
Implant:
[employer] Reveal LINQ
Conclusion: Uncomplicated implantation of loop recorder.
Recommendation: Routine ILR care.
Copy:
Dr Susy Nichols
== END 2024-04-14 12:00 | disposition home or self-care (01) ==
LOC: CATH 09:28
PROVIDERS: ATTENDING PHYSICIAN Internal Medicine Cardiovascular Disease; FAMILY PHYSICIAN Internal Medicine; OTHER PHYSICIAN Internal Medicine Cardiovascular Disease
DX: Z09 Encounter for follow-up examination after completed treatment for conditions other than malignant neoplasm (principal); I48.0 Paroxysmal atrial fibrillation; E03.9 Hypothyroidism, unspecified; J44.9 Chronic obstructive pulmonary disease, unspecified; Z87.891 Personal history of nicotine dependence
CPT/HCPCS: 33285; C1764

== ENCOUNTER → 2024-04-19 10:22 | Outpatient (REF) | payer MEDICARE, OTHER, SELFPAY ==
[2024-04-19 10:53] LABS: % Basophils 0.2 % (0-2); % Immature Granulocytes 0.6 % (0-0.5); % Lymphocytes 31.1 % (20.5-51.1); % Monocytes 1.8 % (1.7-9.3); % Neutrophils 66.3 % (42.2-75.2); Absolute Lymphocytes 1.6 10^3/uL (1.2-3.4); Absolute Monocytes 0.1 10^3/uL (0.1-0.6); Absolute Neutrophils 3.4 10^3/uL (1.4-6.5); Hematocrit 40.8 % (37.0-47.0); Hemoglobin 13.2 g/dL (12.0-16.0); Mean Corp Hgb Conc. 32.4 g/dL (33.0-37.0); Mean Corpuscular Hgb 29.7 pg (27.0-31.0); Mean Corpuscular Volume 91.9 fL (81.0-99.0); Mean Platelet Volume 10.1 fL (7.4-10.4); Nucleated Red Blood Cells % 0 %; Platelet Count 343 10^3/uL (130-400); Red Blood Cell Count 4.44 10^6/uL (4.20-5.40); Red Cell Dist. Width 13.2 % (11.5-14.5); White Blood Cell Count 5.1 10^3/uL (4.8-10.8)
== END ==
LOC: OIDL 10:22
PROVIDERS: ATTENDING PHYSICIAN Internal Medicine Hematology & Oncology
DX: D89.2 Hypergammaglobulinemia, unspecified (principal)
CPT/HCPCS: 85025

== ENCOUNTER → 2024-06-07 10:21 | Outpatient (REF) | payer MEDICARE, OTHER, SELFPAY ==
[2024-06-07] MEDS: ANCEF 10 IV (11:18)
[2024-06-07 12:53] VITALS: BP 178/100; BP_SYST 78
[2024-06-07 12:56] VITALS: BP 185/100
[2024-06-07 13:00] VITALS: BP 177/96; BP_SYST 96
[2024-06-07 13:15] VITALS: BP 170/93
== END ==
LOC: RADI 10:21
PROVIDERS: ATTENDING PHYSICIAN Internal Medicine Hematology & Oncology; FAMILY PHYSICIAN Internal Medicine
DX: D80.1 Nonfamilial hypogammaglobulinemia (principal)
CPT/HCPCS: 36561; 76937; 77001; 99152; 99153; C1788

== ENCOUNTER → 2024-09-20 09:21 | Outpatient (REF) | payer MEDICARE, OTHER, SELFPAY ==
[2024-09-20 09:41] LABS: % Basophils 0.1 % (0-2); % Immature Granulocytes 0.3 % (0-0.5); % Lymphocytes 12.9 % (20.5-51.1); % Neutrophils 85.7 % (42.2-75.2); Absolute Immature Granulocytes 0.1 10^3/uL (0-0.05); Absolute Lymphocytes 1.9 10^3/uL (1.2-3.4); Absolute Monocytes 0.2 10^3/uL (0.1-0.6); Absolute Neutrophils 12.9 10^3/uL (1.4-6.5); Hematocrit 36.8 % (37.0-47.0); Mean Corp Hgb Conc. 32.6 g/dL (33.0-37.0); Mean Corpuscular Hgb 30.5 pg (27.0-31.0); Mean Corpuscular Volume 93.6 fL (81.0-99.0); Mean Platelet Volume 9.3 fL (7.4-10.4); Platelet Count 320 10^3/uL (130-400); Red Blood Cell Count 3.93 10^6/uL (4.20-5.40); Red Cell Dist. Width 13.7 % (11.5-14.5); White Blood Cell Count 15.1 10^3/uL (4.8-10.8)
== END ==
LOC: OIDL 09:21
PROVIDERS: ATTENDING PHYSICIAN Internal Medicine Hematology & Oncology
DX: D89.2 Hypergammaglobulinemia, unspecified (principal); C91.10 Chronic lymphocytic leukemia of B-cell type not having achieved remission; D80.1 Nonfamilial hypogammaglobulinemia
CPT/HCPCS: 85025

== ENCOUNTER 2024-12-13 22:08 | Inpatient (IN) | payer MEDICARE, OTHER, SELFPAY ==
[2024-12-13] VITALS (8 sets, daily range): BP systolic 96–128; BP diastolic 57–84; BMI 21.8
[2024-12-13 12:36] LABS: % Basophils 0.6 % (0-2); % Eosinophils 1.7 % (0-6); % Immature Granulocytes 0.7 % (0-0.5); % Lymphocytes 19.3 % (20.5-51.1); % Monocytes 6.6 % (1.7-9.3); % Neutrophils 71.1 % (42.2-75.2); Absolute Basophils 0.1 10^3/uL (0-0.2); Absolute Eosinophils 0.2 10^3/uL (0-0.7); Absolute Immature Granulocytes 0.1 10^3/uL (0-0.05); Absolute Lymphocytes 2.5 10^3/uL (1.2-3.4); Absolute Monocytes 0.8 10^3/uL (0.1-0.6); Hematocrit 34.6 % (37.0-47.0); Hemoglobin 11.7 g/dL (12.0-16.0); Mean Corp Hgb Conc. 33.8 g/dL (33.0-37.0); Mean Corpuscular Hgb 30.8 pg (27.0-31.0); Mean Corpuscular Volume 91.1 fL (81.0-99.0); Mean Platelet Volume 9.5 fL (7.4-10.4); Nucleated Red Blood Cells % 0 %; Platelet Count 245 10^3/uL (130-400); Red Cell Dist. Width 14.7 % (11.5-14.5); White Blood Cell Count 12.7 10^3/uL (4.8-10.8)
[2024-12-13 13:05] LABS: ALT (SGPT) 11 U/L (0-35); AST (SGOT) 19 U/L (14-36); Albumin 3.4 g/dl (3.5-5.0); Alkaline Phosphatase 46 U/L (38-126); Blood Urea Nitrogen 22 mg/dl (7-17); Calcium 9.8 mg/dl (8.4-10.2); Carbon Dioxide 29 mmol/L (22-30); Chloride 104 mmol/L (98-107); Glucose 88 mg/dl (70-99); Potassium 4.4 mmol/L (3.5-5.1); Sodium 139 mmol/L (135-145); Total Bilirubin 1.1 mg/dl (0.2-1.3); Total Protein 5.5 g/dl (6.3-8.2); eGFR > 60.00
[2024-12-13 13:15] LABS: Troponin I < 0.012 ng/ml
[2024-12-13 13:34] LABS: NT-proBNP 1770 pg/ml
--- NOTE | 2024-12-13 17:16 | ED.GENMED ---
History of Present Illness
General
Chief Complaint: Breathing Problem
Source: patient
Exam Limitations: none
Time Seen by Provider: 12/13/24 15:39
History of Present Illness
History of Present Illness:
Patient is a 74-year-old female with past medical history of asthma, COPD, bronchiectasis, previous pneumonia, on doxycycline orally prophylactically, seen by pulmonology at [place] regularly, monoclonal B-cell lymphocytosis currently receiving IVIG
via a port in the right chest wall, hypothyroidism, who presents to the emergency department for evaluation of cough and shortness of breath. Patient reports that she was diagnosed with Pseudomonas pneumonia based on a sputum culture performed by
her layout mechanic 3 weeks ago. She reports she was on a course of Levaquin. She reports that she was feeling better up until 2 days ago when she once again developed a nonproductive cough associated with worsening shortness of breath. Patient
reports that she has had generalized weakness and fatigue. Patient felt so fatigued this morning that she could not get to the emergency department on her own and needed to call 911. Patient denies fevers but states that she never spikes fevers.
Patient denies chest pain, abdominal pain, nausea, vomiting, change in her bowel habits. Patient does note decreased oral intake.
Past History
Past History
ED Past Medical History: Arrthythmia (afib), COPD, Hypothyroidism and Other (Monoclonal B-cell lymphocytosis)
ED Past Surgical History: Cardiac (Cardiac ablation for A-fib), Gynecological (Hysterectomy), Orthopedic (Microdiscectomy, right hip replacement) and Other (Cataract)
Social History
Tobacco: Former smoker
Alcohol: None
Drug: None
Personal:
Living: alone
Employment: Retired
Review of Systems
Review of Systems
Allergies reviewed?: Yes
All Other Systems: Not applicable
Constitutional: Reports fatigue; Denies fever
EENT: Reports no symptoms
Respiratory: Reports cough and trouble breathing; Denies hemoptysis
Cardiac: Reports no symptoms
ABD/GI: Reports anorexia; Denies abdominal pain
: Reports no symptoms
Musculoskeletal: Reports no symptoms
Skin: Reports no symptoms
Neurological: Reports no symptoms
Endocrine: Reports no symptoms
Hematologic/Lymphatic: Reports no symptoms
Psychiatric: Reports no symptoms
Phy Exam
General Physical Exam
General Presentation: well appearing and no apparent distress
General Skin: warm and dry
General Habitus: normal
General Mental: alert
General Hydration: appears well hydrated
ENT Exam
ENT Exam: EOMI, pharynx normal, neck supple and normocephalic
Eye Exam
Eye Exam: PERRL, cornea clear and conjunctiva normal
Cardiovascular Exam
Cardiovascular Exam: regular rate/rhythm, no edema, no murmur and normal peripheral pulses
Pulmonary Exam
Pulmonary Exam: no respiratory distress, no stridor and other (diffuse wheezing with crackles at the bases bilaterally)
Gastrointestinal Exam
Gastrointestinal Exam: normal bowel sounds, non tender, soft, no organomegaly, no pulsatile mass and non distended
Neurological Exam
Neurological Exam: alert, oriented x3, no motor deficits and speech normal
Musculoskeletal Exam
Musculoskeletal Exam: full ROM and no edema
Skin Exam
Skin Exam: normal color, warm/dry, no rash and no petechia
Psychiatric Exam
Psychiatric Exam: normal mood/affect
Scores
Heart Failure Risk
Heart Failure Risk Score: Not Applicable
Course
Orders/Labs/Results
Orders:
Orders
12/13/24 12:01
Electrocardiogram (*1) Urgent
Reason for Study: Shortness of Breath
EKG- Treatment ONCE
12/13/24 12:02
CXR2 [CR Chest - 2 Views ] Urgent
Comment:
Reason For Exam: sob/cough/chest heaviness
12/13/24 12:22
Complete Blood Count/With Diff Urgent
Comprehensive Metabolic Panel Urgent
NT-proBNP Urgent
Troponin I Urgent
12/13/24 17:18
Cefepime HCl [Maxipime] 2,000 mg IV NOW STA
Ipratropium/Albuterol Sulfate [Duoneb] 3 ml INH R NOW STA
MethylPREDNISolone PF [Solu-Medrol Pf] 125 mg IV NOW STA
Abnormal Lab Results
12/13/24
12:22
WBC 12.7 H 10^3/uL
(4.8-10.8)
RBC 3.80 L 10^6/uL
(4.20-5.40)
Hgb 11.7 L g/dL
(12.0-16.0)
Hct 34.6 L %
(37.0-47.0)
RDW 14.7 H %
(11.5-14.5)
Abs Immat Gran (auto) 0.1 H 10^3/uL
(0-0.05)
Absolute Neuts (auto) 9.0 H 10^3/uL
(1.4-6.5)
Absolute Monos (auto) 0.8 H 10^3/uL
(0.1-0.6)
Immature Gran % 0.7 H %
(0-0.5)
Lymphocytes % 19.3 L %
(20.5-51.1)
BUN 22 H mg/dl
(7-17)
Total Protein 5.5 L g/dl
(6.3-8.2)
Albumin 3.4 L g/dl
(3.5-5.0)
12/13/24 12:22
12/13/24 12:22
Vital Signs
Initial and Last Documented VS:
Initial Vital Signs
Temp Pulse Resp BP Pulse Ox
98.2 F 85 16 115/68 94
12/13/24 11:57 12/13/24 11:57 12/13/24 11:57 12/13/24 11:57 12/13/24 11:57
Last Documented Vital Signs
Temp Pulse Resp BP Pulse Ox
98.2 F 85 16 96/84 96
12/13/24 11:57 12/13/24 11:57 12/13/24 11:57 12/13/24 15:48 12/13/24 15:51
*Critical Care Note
Total Time (30-74mins, 75-104mins- exclusive of procedures): Not Applicable
Update Note
Update Note:
74-year-old female with extensive past medical history including complicated respiratory history for which she follows closely with pulmonology at [place], recently treated as an outpatient for Pseudomonas pneumonia with Levaquin, presents to the
emergency department for evaluation of 2 days of generalized weakness and fatigue associated with a dry nonproductive cough and shortness of breath. On arrival, patient's vital signs are stable, she is afebrile. On exam, patient is in no acute
distress, she does have diffuse wheezing with crackles at the bases bilaterally. Labs are notable for a leukocytosis to 12.7. Chest x-ray does demonstrate findings consistent with a right-sided pneumonia. Given the patient's recent treatment for
pneumonia and extensive respiratory history, will give IV cefepime and admit for continued treatment of this pneumonia. Given the patient's wheezing, will also give DuoNebs and steroids. Plan was discussed with the patient who expressed
understanding and agreed.
ED Attending Note
-
Portions of this chart may have been created with voice recognition software.� Occasional wrong word or��sound alike� substitutions may have occurred due to the inherent limitations of voice recognition software.
Discharge Plan
Departure
Patient Disposition: Admit
Date of Disposition: 12/13/24
Time of Disposition: 17:23
Presentation/result/management discussed w/ accepting MD/DO: Hospitalist
Patient with high blood pressure during this ER visit?: No
Condition: Good
Covid-19: Not Applicable
Discharge Problem:
Pneumonia
Prescriptions:
No Action
gabapentin 600 mg tablet
600 mg PO TID
montelukast 10 mg tablet
10 mg PO HS
levothyroxine 112 mcg tablet
112 mcg PO MOWEFR@07
fexofenadine 180 mg Tablet
180 mg PO DAILY
levothyroxine 125 mcg tablet
125 mcg PO SUTUTHSA@07
azelastine 137 mcg (0.1 %) aerosol,spray
1 spray INTRANASAL DAILY
[id number] [krill oil] 308-70-65-50 mg Capsule
1 cap PO BID Qty: 0
cyanocobalamin (vitamin B-12) 1,000 mcg Tablet
500 mcg PO DAILY
ascorbic acid (vitamin C) [Vitamin C] 500 mg Tablet
500 mg PO QPM
duloxetine 30 mg Capsule,Delayed Release(Dr/Ec)
30 mg PO DAILY
levalbuterol tartrate 45 mcg/actuation Hfa Aerosol Inhaler
1 puff INHALATION R Q8HPRN PRN (Reason: sob)
calcium citrate-vitamin D3 [Citracal Regular] 250 mg-5 mcg (200 unit) Tablet
1 tab PO DAILY Qty: 0
roflumilast [Daliresp] 500 mcg Tablet
500 mcg PO HS
fluticasone furoate 200 mcg/actuation Blister With Device
2 inh INHALATION R BID
levalbuterol HCl 1.25 mg/3 mL Solution For Nebulization
1.25 mg inhalation R Q6HPRN PRN (Reason: sob/wheeze) Qty: 0 0RF
duloxetine 60 mg Capsule,Delayed Release(Dr/Ec)
60 mg PO HS Qty: 0
benzonatate 100 mg Capsule
100 mg PO TIDPRN PRN (Reason: cough) Qty: 30 0RF
pantoprazole 40 mg Tablet,Delayed Release (Dr/Ec)
40 mg PO DAILY 30 Days Qty: 30 0RF
celecoxib [Celebrex] 100 mg Capsule
100 mg PO BID Qty: 0
furosemide 20 mg tablet
60 mg PO DAILY
Serevent Diskus 50 mcg/dose Blister With Device
1 inh INHALATION R HS
coenzyme Q10 [CoQ-10] 100 mg Capsule
100 mg PO DAILY
docusate sodium [Colace] 100 mg Capsule
100 mg PO BID
folic acid 1 mg Tablet
1 mg PO DAILY
melatonin 5 mg Tablet
5 mg PO HS
potassium chloride 20 mEq Tablet Extended Release
20 meq PO BID
gabapentin 300 mg Capsule
300 mg PO HS
doxycycline hyclate 100 mg capsule
100 mg PO BID
midodrine 10 mg Tablet
10 mg PO TID
cyclosporine [Restasis] 0.05 % Dropperette
1 drp BOTH EYES Q12H
ivabradine 5 mg Tablet
2.5 mg PO BID
Referrals:
Juan Kamara MD [Family Provider, Internal Medicine]
Interventions
Interventions:
*Risk Screen - Suicide Last Done: 12/13/24 11:57
*General Assessment Last Done: 12/13/24 15:51
*Neglect/Abuse Screening Last Done: 12/13/24 11:57
*ED- Fall Risk Assessment Last Done: 12/13/24 15:51
*ED COVID-19 Vaccine History Last Done: 12/13/24 15:51
ED- Cardiac Assessment Last Done: 12/13/24 15:51
ED- Pulmonary Assessment Last Done: 12/13/24 15:51
Discharge Date and Time
Print Language: AMHARIC
[2024-12-13] MEDS: MAXIPIME 2000 MG IV (17:46)
[2024-12-13] MEDS: SOLU-MEDROL PF 125 MG IV (17:50)
[2024-12-13] MEDS: XOPENEX 1.25 MG INHALANT SOLUTION INH (18:51)
--- NOTE | 2024-12-13 21:11 | HPS.HSE ---
Family Physician
-
Family Physician: Juan Kamara
Chief Complaint
-
symptoms returned/worsening. Pulse ox dips to 89% without supplemental O2.
History of Present Illness
74F extensive PMHX including complicated respiratory HX which she follows closely with pulmonology at [place], recently treated as an outpatient for Pseudomonas pneumonia with Levaquin, presents to the emergency department for evaluation of 2 days of
generalized weakness and fatigue associated with a dry nonproductive cough and shortness of breath.
Complex PMHX include
Lengthy admision 08/16/23 -09/10/23
Prx Afib
COPD
Asthma
Hypothyroidism
Monoclonal B-cell Lymphocytosis
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
Arthritis p/w weakness confusion encephalopathy
PNA Hyponatremia
Acute Kidney Injury persistent orthostatic hypotension.
Medical History
Past Medical History
Past Medical History: Reports Other
Additional Past Medical History:
Paroxysmal Atrial Fibrillation s/p Ablation
COPD
Chronic Hypoxic Respiratory Failure
Monoclonal B-Cell Lymphocytosis
Hypothyroidism
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
Past Surgical History: Reports Other
Additional Past Surgical History:
Cardiac Ablation
Hysterectomy
Microdiscectomy
Right Hip Replacement
Cataract
Social History
Tobacco: Former Smoker
Alcohol: Occasional
Drug: None
Family History
Family History: Not pertinent
Allergies / Home Medications
Allergies reflects when Allergies were last updated in [facility].
Home Medications with original date entered in [facility]
Allergy/Medication List:
Allergies
Allergy/AdvReac Type Severity Reaction Status Date / Time
azithromycin Allergy Rash Verified 11/20/22 14:52
codeine Allergy Rash Verified 11/20/22 14:52
morphine Allergy Rash Verified 11/20/22 14:52
tetanus toxoid, adsorbed Allergy Rash Verified 11/20/22 14:52
tuberculin, purified protein Allergy Rash Verified 11/20/22 18:54
deriva
Home Medications
azelastine 137 mcg (0.1 %) nasal spray aerosol 1 spray intranasal DAILY Allergies 11/20/22
celecoxib 200 mg capsule 200 mg PO BID Pain 11/20/22
fexofenadine 180 mg tablet 180 mg PO DAILY Allergies 11/20/22
fluticasone propionate 50 mcg/actuation nasal spray,suspension 2 spray intranasal BID Allergies 11/20/22
gabapentin 300 mg capsule 300 mg PO HS Pain 11/20/22
gabapentin 600 mg tablet 600 mg PO TID@0700,1500,2200 Pain 11/20/22
krill oil 1 cap PO DAILY Supplement 11/20/22
levothyroxine 112 mcg tablet 112 mcg PO MOWEFR@07 Thyroid 11/20/22
levothyroxine 125 mcg tablet 125 mcg PO SUTUTHSA@07 Thyroid 11/20/22
montelukast 10 mg tablet 10 mg PO HS Lung/breathing issues 11/20/22
doxycycline hyclate 100 mg capsule 100 mg PO BID #60 caps 11/25/22
Citracal plus D 1 tab PO BID Supplement 07/03/23
ascorbic acid (vitamin C) 500 mg tablet (Vitamin C) 500 mg PO QPM Supplement 07/03/23
cefuroxime axetil 500 mg tablet 500 mg PO BID Infection 07/03/23
cholecalciferol (vitamin D3) 25 mcg (1,000 unit) tablet 25 mcg PO .4 TIMES A WEEK@1700 Supplement 07/03/23
cyanocobalamin (vitamin B-12) 1,000 mcg tablet 500 mcg PO DAILY Supplement 07/03/23
duloxetine 30 mg capsule,delayed release 30 mg PO BID Depression 07/03/23
fluticasone furoate 200 mcg/actuation blister powder for inhalation 2 inh inhalation R BID Lung/Breathing Issues 07/03/23
levalbuterol tartrate 45 mcg/actuation aerosol inhaler 1 puff inhalation R Q8HPRN PRN sob 07/03/23
roflumilast 500 mcg tablet (Daliresp) 500 mcg PO HS Lung/Breathing Issues 07/03/23
salmeterol 50 mcg/dose blister powder for inhalation (Serevent Diskus) 1 inh inhalation R BID Lung/Breathing Issues 07/03/23
turmeric 400 mg capsule 400 mg PO BID Supplement 07/03/23
alprazolam 0.5 mg tablet 0.5 mg PO HS #3 tabs 07/12/23
benzonatate 100 mg capsule 200 mg PO TID #0 caps 07/12/23
levalbuterol HCl 1.25 mg/3 mL solution for nebulization 1.25 mg (3 mL) inhalation R Q6HPRN PRN sob/wheeze #0 mL 07/12/23
diltiazem HCl 30 mg tablet 30 mg PO TID 08/16/23
furosemide 40 mg tablet (Lasix) 40 mg PO BID 08/16/23
metolazone 2.5 mg tablet 2.5 mg PO DAILY 08/16/23
midodrine 2.5 mg tablet 2.5 mg PO DAILY@1400 08/16/23
midodrine 5 mg tablet 5 mg PO DAILY 08/16/23
phenazopyridine 100 mg tablet (Pyridium) 100 mg PO TID 08/16/23
prednisone 10 mg tablet 30 mg PO DAILY 08/16/23
Review of Systems
-
Constitutional: Reports See HPI
EENT: Reports No Symptoms
Respiratory: Reports See HPI
Cardiac: Reports No Symptoms
Abdomen/GI: Reports No Symptoms
: Reports No Symptoms
Musculoskeletal: Reports No Symptoms
Skin: Reports No Symptoms
Neurological: Reports No Symptoms
Endocrine: Reports No Symptoms
Hematologic/Lymphatic: Reports No Symptoms
Psych: Reports No Symptoms
Physical Exam
Vital Signs
Vital Signs
Temp Pulse Resp BP Pulse Ox
98.2 F 85 16 127/74 97
12/13/24 11:57 12/13/24 11:57 12/13/24 11:57 12/13/24 21:00 12/13/24 21:01
Physical Exam
General: Comfortable and Conversant
HEENT: Anicteric, Oxygen (Nasal Cannula) and Other (Dry mucous membranes)
Respiratory: Clear and Non Labored Respirations
Cardiac: S1/S2 and Regular Rhythm
GI: Soft and Non Tender
Genito-urinary: Alicia
Musculoskeletal: No Clubbing, No Cyanosis and No Edema
Skin: Warm and Dry
Neuro: Awake, Alert, Oriented and Nonfocal/grossly intact
Psych: Calm
Laboratory Results
-
12/13/24 12:22
12/13/24 12:22
Laboratory Results
Total Bilirubin 1.1 mg/dl (0.2-1.3) 12/13/24 12:22
AST 19 U/L (14-36) 12/13/24 12:22
ALT 11 U/L (0-35) 12/13/24 12:22
Alkaline Phosphatase 46 U/L (38-126) 12/13/24 12:22
Troponin I < 0.012 ng/ml 12/13/24 12:22
Data Reviewed
-
Diagnostic Radiology: Report Reviewed by me
Lab Data: Discussed with Physician
Old Records: Reviewed
Impression/Plan
-
Vital Signs
Temp Pulse Resp BP Pulse Ox
98.2 F 85 16 127/74 97
12/13/24 11:57 12/13/24 11:57 12/13/24 11:57 12/13/24 21:00 12/13/24 21:01
Laboratory Tests
09/20/24 12/13/24
09:05 12:22
WBC 15.1 H 12.7 H
Hgb 12.0 11.7 L
Plt Count 320 245
Potassium 4.4
BUN 22 H
Creatinine 0.7
eGFR > 60.00
CXR
There is airspace disease in the right lower lobe which suggests pneumonia.
There is also airspace disease in the left lower lobe which is likely atelectasis/scarring as this is improved compared to the prior study
Last hospitalist admission: 08/16/23 -09/10/23
DC DX:
Pneumonia, COPD/Asthma exacerbation, Chronic Hypoxic Respiratory Failure, Pulmonary RODRIGUEZ, Monoclonal B-cell lymphocytosis, hypogammaglobulinemia, Immunocompromised, history intolerance to IgG infusion, paroxysmal atrial fibrillation, hypothyroidism,
history steroid induced myopathy, Esophageal Candidiasis, Rectal Bleeding, Anal Herpes Ulcer, Orthostatic Hypotension, Hyponatremia, Inflammatory Arthritis, Acute Metabolic Encephalopathy resolved, Hemorrhoids, Anemia of Chronic Disease, Iron
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
ASSESSMENT & PLAN
Pending Rx reconciliation
Recurrent Rt LLL PNA
- cough with deep breathing suspect reactive AW
- noted small hemoptysis in the thick yellow sputum
- Recent HX pseudomonas PNA 3 weeks ago treated with a course of Levaquin who was improved until 2 days ago
- associated Hypoxia
- HX Left lower lobe pneumonia
- HX COPD ? flare
- HX Pulmonary RODRIGUEZ
- agree with IV CFP
- IV Decadron 4 mg q12h
- O2 to kep POx > 93
- Pul consult
- ID consult
Complex PMHX include Lengthy admision 08/16/23 -09/10/23
Prx Afib
COPD
Asthma
Hypothyroidism
Monoclonal B-cell Lymphocytosis
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
Arthritis p/w weakness confusion encephalopathy
Hyponatremia
HX Acute Kidney Injury persistent orthostatic hypotension.
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
HX anal bleeding ulcers: 09/03/23 s/p flex sig, suture of small rectal ulcer, Botox chemodenervation
No prior history of genital HSV. Not sexually active since 5 yrs ago.
Gait dysfunction
Hx Steroid-induced myopathy
- Pending Rx reconciliation
DVT Px: SCD
DNR per patient
IP TLM
[2024-12-13] MEDS: STERILE WATER FOR INJECTION 10 ML IV (23:32)
[2024-12-13] MEDS: MAXIPIME 1000 MG IV (23:32)
[2024-12-13] MEDS: DALIRESP 500 MCG PO (23:33)
[2024-12-13] MEDS: RESTASIS 0.05% OPHTHALMIC EMULSION 1 DROPS BOTH EYES (23:33)
[2024-12-13] MEDS: MELATONIN 5 MG PO (23:33)
[2024-12-13] MEDS: SINGULAIR 10 MG PO (23:33)
[2024-12-13] MEDS: CYMBALTA DELAYED RELEASE 60 MG PO (23:33)
[2024-12-13] MEDS: NEURONTIN 300 MG PO (23:33)
[2024-12-14] VITALS (7 sets, daily range): BP systolic 108–138; BP diastolic 58–81; PULSE 76; BMI 21.4
[2024-12-14] MEDS: NEURONTIN 600 MG PO ×4 (00:31→22:03)
--- NOTE | 2024-12-14 01:45 | PTCARENOTE ---
Patient arrived from ER around 2244. Patient oriented to room and call fenton was placed within reach. Fall risk education provided. Patient is AAO x4. Patient arrived with a bag of medications from home, no narcotics noted. Non-formulary medications
sent to the pharmacy for reconciliation and to get barcodes. RN explained to the patient that her medications should be sent to the pharmacy to be held during admission; however, the patient is refusing to have medications sent to pharmacy and
removed from the room. Bag of PO medications removed from immediate bedside and placed in closet. RN reinforced that nursing staff will have to scan her medications out at the appropriate time and to not take her own medications. Patient is
agreeable to the plan. RN notified nursing cutting department supervisor. Per cutting department supervisor, it is okay to keep medications in closet until the patient`s family take medications home. RN will make nurse pig farm manager and dayshift RN aware in the morning.
[2024-12-14 05:05] LABS: Hematocrit 31.5 % (37.0-47.0); Hemoglobin 10.7 g/dL (12.0-16.0); Mean Corpuscular Hgb 30.9 pg (27.0-31.0); Platelet Count 235 10^3/uL (130-400); Red Blood Cell Count 3.46 10^6/uL (4.20-5.40); Red Cell Dist. Width 14.8 % (11.5-14.5); White Blood Cell Count 14.4 10^3/uL (4.8-10.8)
[2024-12-14 05:19] LABS: ALT (SGPT) 10 U/L (0-35); AST (SGOT) 16 U/L (14-36); Albumin 3.3 g/dl (3.5-5.0); Alkaline Phosphatase 48 U/L (38-126); Blood Urea Nitrogen 19 mg/dl (7-17); Calcium 9.4 mg/dl (8.4-10.2); Carbon Dioxide 28 mmol/L (22-30); Chloride 104 mmol/L (98-107); Estimated Creatinine Clearance 72 ml/min; Glucose 206 mg/dl (70-99); Sodium 137 mmol/L (135-145); Total Bilirubin 0.6 mg/dl (0.2-1.3); Total Protein 5.3 g/dl (6.3-8.2); eGFR > 60.00
[2024-12-14] MEDS: MAXIPIME 1000 MG IV (06:10)
[2024-12-14] MEDS: STERILE WATER FOR INJECTION 10 ML IV ×3 (06:10→22:01)
[2024-12-14] MEDS: DECADRON 4 MG IV (06:10)
[2024-12-14] MEDS: SYNTHROID 125 MCG PO (06:10)
--- NOTE | 2024-12-14 07:42 | W.PN.HOSP.TC ---
Today's Communication/Plan
-
.
Assessment / Plan
Assessment / Plan
Assessment:
74yo F pmh afib, COPD, asthma, hypothyroidism, and monoclonal B-cell lymphocytosis admitted to [facility] 12/13 for SOB. Dx Pseudomonas pneumonia 3 weeks ago via sputum cx performed by test engineering technician, was prescribed levaquin. +worsening dyspnea x2d,
nonproductive cough, generalized weakness, fatigue.
Plan:
RLL Pna
Recurrent LLL PNA
- cough w deep breathing - likely reactive airway
- small hemoptysis in thick yellow sputum
- recent Pseudomonas pna 3 weeks ago - treated w levaquin
- associated hypoxia
- CXR: There is airspace disease in the right lower lobe which suggests pneumonia. There is also airspace disease in the left lower lobe which is likely atelectasis/scarring as this is improved compared to the prior study
- hx pulm RODRIGUEZ
- cefepime
- solumedrol
- O2 to SpO2>93
- appreciate pulm and ID input
Prx Afib
POTS
- dizziness during PT
- appreciate cardiology input
COPD
Asthma
Hypothyroidism
Monoclonal B-cell Lymphocytosis
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
Arthritis p/w weakness confusion encephalopathy
Hyponatremia
HX Acute Kidney Injury persistent orthostatic hypotension.
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
HX anal bleeding ulcers: 09/03/23 s/p flex sig, suture of small rectal ulcer, Botox chemodenervation
No prior history of genital HSV. Not sexually active since 5 yrs ago.
Gait dysfunction
Hx Steroid-induced myopathy
Diet: regular
DVT ppx: SCD
Code status: DNR
Anticipated Discharge: > 48 hours
Subjective/Interval History
-
Date of Service: December 14, 2024
Objective Data
-
Labs:
Laboratory Results
12/14/24
04:27
WBC 14.4 H
Hgb 10.7 L
Hct 31.5 L
Plt Count 235
Sodium 137
Potassium 4.0
Chloride 104
Carbon Dioxide 28
BUN 19 H
Creatinine 0.6
Glucose 206 H
Calcium 9.4
Total Bilirubin 0.6
AST 16
ALT 10
Alkaline Phosphatase 48
Vital Signs:
Vital Signs
Temp Pulse Resp BP Pulse Ox
97.7 F 67 18 108/58 96
12/14/24 03:00 12/14/24 03:00 12/14/24 03:00 12/14/24 03:00 12/14/24 03:00
I&O
12/13/24 12/14/24 12/15/24
06:59 06:59 06:59
Intake Total 240 / 240
Balance 240 / 240
Review of Systems
-
History Source: Patient
Constitutional: Reports No Symptoms
Respiratory: Reports Cough, Hemoptysis, Trouble Breathing and Wheezing
Cardiac: Reports Chest Pain (pleuritic)
Abdomen/GI: Reports No Symptoms
Neuro: Reports No Symptoms
Physical Exam
-
General: Well Developed and Well Nourished
HEENT: Normocephalic, Atraumatic and Oxygen (2L O2 via NC)
Respiratory: Wheezes and Accessory Resp Muscle Use
Cardiac: Regular Rhythm and S1/S2
GI: Soft, Nontender, Nondistended and Normal Bowel Sounds
Musculoskeletal: No Clubbing, No Cyanosis and No Edema
Skin: Warm and Dry
Neuro: Awake, Alert and Oriented
Psych: Calm
[2024-12-14] MEDS: NON-FORMULARY ITEM 1 INH INH ×2 (08:14→20:24)
[2024-12-14] MEDS: NON-FORMULARY ITEM 2 UNIT INH ×2 (08:15→20:27)
[2024-12-14] MEDS: TESSALON PERLES 200 MG PO (09:03)
[2024-12-14] MEDS: CLARITIN 10 MG PO (09:06)
[2024-12-14] MEDS: CYMBALTA DELAYED RELEASE 30 MG PO (09:06)
[2024-12-14] MEDS: ProAmatine 10 MG PO ×3 (09:07→16:22)
[2024-12-14] MEDS: PROTONIX 40 MG PO (09:08)
[2024-12-14] MEDS: KCL 20 MEQ PO ×2 (09:08→20:24)
[2024-12-14] MEDS: VIBRAMYCIN 100 MG PO ×2 (09:09→20:25)
[2024-12-14] MEDS: CELEBREX 100 MG PO ×2 (09:10→20:25)
[2024-12-14] MEDS: RESTASIS 0.05% OPHTHALMIC EMULSION 1 DROPS BOTH EYES ×2 (09:12→20:25)
[2024-12-14] MEDS: FOLVITE 1 MG PO (09:12)
--- NOTE | 2024-12-14 10:42 | CM ---
Patient seen at bedside on . Patient on O2 and stated that she has home O2 from her . Patient states that she lives alone in a 2 story home and that she has a rolling walker and a cane at home as well as a stair glide. Patient had [facility] following hospitalization and states that she would accept them if needed. Patient PCP is Dr. Vazquez and she uses the [facility] in [place]. Patient states that she has Medicare and secondary insurance from [place] [id number].
Per patient her Social is [phone] and her benefits from the [employer] are accessed through the [employer]. 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 Patient plan is to return home with [facility] supports. CM will
continue to follow for discharge planning needs.
Plan; home with VN vs SNF; pending PT/OT assessment;
--- NOTE | 2024-12-14 10:46 | CON.ID ---
Consultation
-
Date/Time Consultation Requested: December 13, 2024 [id number]
Date/Time Consultation Performed: December 14, 2024 1050
Requesting Provider: Dr. Miles Durand
Performing Provider: Dr. Jackelyn Feliciano
Reason for Consultation: Recurrent pneumonia, recent Pseudomonas pneumonia
Chief Complaint / Past History
Chief Complaint
Cough and weakness
History of Present Illness
74-year-old female with history of asthma/COPD on chronic doxycycline, bronchiectasis, pulmonary RODRIGUEZ not on treatment, hypogammaglobulinemia on IVIG (last received 12/07) who presented to the hospital December 13 secondary to cough and generalized weakness
and fatigue. Patient reports last night, she developed worsening cough. On November 15 her [employer] attendant at [place] sent sputum culture which resulted as Pseudomonas (pansensitive). She received 14-day course of levofloxacin 750 mg daily. Cough
resolved. However on Friday night December 11, she developed shaking chills and started coughing again. On Friday cough persisted and she felt weaker. Her appetite was poor. Cough productive of brown phlegm. Her O2 sat dropped to 78%. Repeat
pulse ox was 61% then eventually went up to 88%. She finally decided to come to the ER. Sputum now blood-streaked. Sputum culture pending. White count 14.4. Chest x-ray shows right lower lobe opacity. She is now on cefepime 1 g IV every 6
hours. She denies ill contacts. No recent travel.
Past History
Additional Past Medical History:
COPD/asthma
Bronchiectasis
Hypogammaglobulinemia on IVIG
Chronic lymphocytic leukemia of B-cell type
P A-fib
Hypothyroidism
Recurrent sinusitis and pneumonia
Pulmonary RODRIGUEZ (observation)
Postural orthostatic tachycardia syndrome
Anal HSV
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
Additional Past Surgical History:
Hysterectomy
Microdiscectomy
Right hip replacement
Cataract surgery
Allergy History:
alendronate sodium (From Fosamax) Allergy (Verified 06/09/25 12:00)
abd pain, diarrhea
azithromycin Allergy (Verified 12/13/24 12:00)
Rash
calamine Allergy (Verified 12/13/24 12:00)
Rash
camphor Allergy (Verified 12/13/24 12:00)
Shortness of Breath
chlorhexidine Allergy (Verified 12/13/24 12:00)
Shortness of Breath
codeine Allergy (Verified 12/13/24 12:00)
Rash
glucose (From Gammagard S/D) Allergy (Verified 12/13/24 12:00)
Unknown
glycine (From Gammagard S/D) Allergy (Verified 12/13/24 12:00)
Unknown
IgA less than or equal to 50 mcg/mL (From Gammagard S/D) Allergy (Verified 12/13/24 12:00)
Unknown
immune globulin,gamma (IgG) human (From Gammagard S/D) Allergy (Verified 12/13/24 12:00)
Unknown
latex Allergy (Verified 12/13/24 12:00)
Rash
morphine Allergy (Verified 12/13/24 12:00)
Rash
tetanus toxoid, adsorbed Allergy (Verified 12/13/24 12:00)
Rash
tuberculin, purified protein deriva Allergy (Verified 12/13/24 12:00)
Rash
diltiazem (From Cardizem) Adverse Reaction (Verified 12/13/24 12:00)
edema,BP drop
blood transfusion Allergy (Uncoded 12/13/24 12:00)
Hives
Medications Reviewed: Yes
Current Antibiotics:
Cefepime 1 g IV every 6
Social History
Tobacco: Former Smoker
Alcohol: None
Drug: None
Personal:
Living: Alone
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
Family History
Family History: Not Pertinent
Review of Systems
Review of Systems
General: Chills and Change in Appetite; Negative Fever
HEENT: Sinus Problems; Negative Headache
Cardiovascular: Negative Chest Pain
Respiratory: Dyspnea, Cough and Hemoptysis
Gasteroenterology: Negative Nausea, Vomiting or Diarrhea
Genital / Urological: Negative Dysuria or Flank Pain
Endocrine: Weakness
All systems: All other systems were reviewed and were negative
Vital Signs
Temp Pulse Resp BP Pulse Ox
98 F 70 18 128/75 96
12/14/24 07:59 12/14/24 08:29 12/14/24 08:29 12/14/24 07:59 12/14/24 08:29
Physical Exam
Physical Exam
Constitutional: No Acute Distress
Head: Other (No frontal or max or sinus tenderness)
Eyes: No Conjunctival Hemorrhage and Sclera Anicteric
Cardiovascular: Regular Rate and S1/S2
Pulmonary: Rales (Crackles right base)
Gastrointestinal: Soft, Non Tender, Non Distended and Normal Bowel Sounds
Genito-Urinary: Negative CVA Tenderness
Extremities: Negative Edema
Skin: Negative Jaundice
Neurological: AO x 3
Lab / Diagnostic Study Results
12/14/24 04:27
12/14/24 04:27
Abs Immat Gran (auto) 0.1 10^3/uL (0-0.05) H 12/13/24 12:22
Absolute Neuts (auto) 9.0 10^3/uL (1.4-6.5) H 12/13/24 12:22
Absolute Lymphs (auto) 2.5 10^3/uL (1.2-3.4) 12/13/24 12:22
Absolute Monos (auto) 0.8 10^3/uL (0.1-0.6) H 12/13/24 12:22
Absolute Basos (auto) 0.1 10^3/uL (0-0.2) 12/13/24 12:22
Immature Gran % 0.7 % (0-0.5) H 12/13/24 12:22
Neutrophils % 71.1 % (42.2-75.2) 12/13/24 12:22
Lymphocytes % 19.3 % (20.5-51.1) L 12/13/24 12:22
Monocytes % 6.6 % (1.7-9.3) 12/13/24 12:22
Eosinophils % 1.7 % (0-6) 12/13/24 12:22
Basophils % 0.6 % (0-2) 12/13/24 12:22
Microbiology Results
Micro:
12/13/24 22:28 Respiratory Culture - Pending
Sputum Gram Stain - Pending
12/13/24 CXR: There is airspace disease in the right lower lobe which suggests pneumonia. There is also airspace disease in the left lower lobe which is likely atelectasis/scarring as this is improved compared to the prior study
Assessment / Plan
# RLL PNA
# Recent Pseudomonas (pansensitive) PNA 11/15/24 s/p 14d levofloxacin
# COPD/asthma/bronchiectasis
# Pulmonary RODRIGUEZ, not on tx due to asymptomatic
# Hypogammaglobulinemia on IVIG
# CLL
- Check urine Legionella Ag and Strep pneumo Ag.
-Follow sputum culture.
- Increase cefepime dose to 2g IV q8.
- Follow clinically
# Conditions ACID PUMPER
COPD/asthma
Bronchiectasis
Hypogammaglobulinemia on IVIG
Chronic lymphocytic leukemia of B-cell type
P A-fib
Hypothyroidism
Recurrent sinusitis and pneumonia
Pulmonary RODRIGUEZ (observation)
Postural orthostatic tachycardia syndrome
Anal HSV
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
[2024-12-14] MEDS: OSCAL 500 + D 500 MG PO (13:29)
[2024-12-14] MEDS: NON-FORMULARY ITEM NASAL (13:29)
[2024-12-14] MEDS: VISBIOME 2 CAP PO (13:30)
[2024-12-14] MEDS: TYLENOL 650 MG PO (13:33)
[2024-12-14] MEDS: MAXIPIME 2000 MG IV ×2 (13:46→22:02)
--- NOTE | 2024-12-14 14:15 | W.PN.UPDATE ---
Update Note
Progress Note Update
I saw and evaluated the patient. I reviewed the resident�s note and agree with findings and plan as documented in the resident�s note.
1. Right lower lobe pneumonia -reported Pseudomonas growth on sputum culture on outpatient basis. Patient has recent history of Pseudomonas pneumonia which was treated with course of Levaquin 3 weeks back as well. Patient have some associated
hypoxia/leukocytosis. Afebrile. Chest x-ray reviewed and no overt consolidation. Patient is immunocompromised and has been started on IV cefepime. ID has been consulted for further help.
2. history of A-fib b -patient have history of ablation x 2 and worried about reoccurrence. Patient requesting Xopenex instead of albuterol which is not available in the hospital. Patient also wanting to be started on Ivabradine , which is
nonformulary and there is no one who can bring it in. Patient requesting to discuss with cardiology to see if there is any alternative that can be given to prevent any A-fib recurrence.
3. Hemoptysis -minimal and likely with the significant coughing episodes. Patient questioning bronchoscopy need which I personally do not see an indication, pulmonology to evaluate as well.
4. Acute hypoxic respite insufficiency/COPD flareup-may have possible flareup of COPD and patient started on IV Decadron, which patient was hesitant to take due to concern of being pushing her back to in A-fib. Switch to Solu-Medrol IV 40 mg every
12 hours for now. Will try to wean off oxygen as possible. As mentioned above patient hesitant to take albuterol, we do not have Xopenex in the formulary and patient not able to provide her home Xopenex supply. Pulmonology may consider to provide
patient only ipratropium
5. History of RODRIGUEZ -patient have recent bronchoscopy and have fungus growth also RODRIGUEZ in the past. Currently being managed at [facility]
6. History of monoclonal B-cell lymphocytosis/hypogammaglobulinemia -managed by [facility], patient intolerant to IgG infusion?
DVT PPX - lovenox
DNR
Total time spent 55-minute
[2024-12-14] MEDS: COLACE 100 MG PO (20:24)
[2024-12-14] MEDS: SOLU-MEDROL PF 40 MG IV (20:25)
[2024-12-14] MEDS: NON-FORMULARY ITEM 1 UNIT INH (20:27)
[2024-12-14] MEDS: XANAX 0.5 MG PO (22:00)
[2024-12-14] MEDS: NEURONTIN 300 MG PO (22:00)
[2024-12-14] MEDS: DALIRESP 500 MCG PO (22:00)
[2024-12-14] MEDS: CYMBALTA DELAYED RELEASE 60 MG PO (22:00)
[2024-12-14] MEDS: MELATONIN 5 MG PO (22:00)
[2024-12-14] MEDS: SINGULAIR 10 MG PO (22:03)
[2024-12-15] VITALS (9 sets, daily range): BP systolic 118–160; BP diastolic 68–93; PULSE 83; O2SAT 95
[2024-12-15] MEDS: TESSALON PERLES 200 MG PO ×3 (00:17→22:03)
[2024-12-15] MEDS: STERILE WATER FOR INJECTION 10 ML IV ×3 (06:02→22:04)
[2024-12-15] MEDS: MAXIPIME 2000 MG IV ×3 (06:02→22:04)
[2024-12-15] MEDS: SYNTHROID 112 MCG PO (06:03)
[2024-12-15] MEDS: NEURONTIN 600 MG PO ×3 (06:05→22:02)
[2024-12-15 06:56] LABS: Hematocrit 31.4 % (37.0-47.0); Hemoglobin 10.6 g/dL (12.0-16.0); Mean Corp Hgb Conc. 33.8 g/dL (33.0-37.0); Mean Corpuscular Hgb 30.4 pg (27.0-31.0); Mean Platelet Volume 10.1 fL (7.4-10.4); Platelet Count 272 10^3/uL (130-400); Red Blood Cell Count 3.49 10^6/uL (4.20-5.40); Red Cell Dist. Width 14.5 % (11.5-14.5); White Blood Cell Count 13.5 10^3/uL (4.8-10.8)
[2024-12-15 07:14] LABS: Blood Urea Nitrogen 25 mg/dl (7-17); Calcium 9.8 mg/dl (8.4-10.2); Carbon Dioxide 25 mmol/L (22-30); Chloride 108 mmol/L (98-107); Estimated Creatinine Clearance 62 ml/min; Glucose 194 mg/dl (70-99); Potassium 4.8 mmol/L (3.5-5.1); Sodium 139 mmol/L (135-145); eGFR > 60.00
--- NOTE | 2024-12-15 07:50 | W.PN.HOSP.TC ---
Today's Communication/Plan
-
.
Assessment / Plan
Assessment / Plan
Assessment:
74yo F pmh afib, COPD, asthma, hypothyroidism, and monoclonal B-cell lymphocytosis admitted to [facility] 12/13 for SOB. Dx Pseudomonas pneumonia 3 weeks ago via sputum cx performed by pallet repairer, was prescribed levaquin. +worsening dyspnea x2d,
nonproductive cough, generalized weakness, fatigue.
Plan:
RLL Pna
Recurrent LLL PNA
- improving
- cough w deep breathing - likely reactive airway
- small hemoptysis in thick yellow sputum
- recent Pseudomonas pna 3 weeks ago - treated w levaquin
- associated hypoxia
- CXR: There is airspace disease in the right lower lobe which suggests pneumonia. There is also airspace disease in the left lower lobe which is likely atelectasis/scarring as this is improved compared to the prior study
- hx pulm RODRIGUEZ
- cefepime
- solumedrol
- pt to have levalbuterol brought home
- O2 to SpO2>93
- appreciate pulm and ID input
Prx Afib
POTS
- dizziness during PT
- pt to have ivabradine brought from home
- appreciate cardiology input
COPD
Asthma
Hypothyroidism
Monoclonal B-cell Lymphocytosis
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
Arthritis p/w weakness confusion encephalopathy
Hyponatremia
HX Acute Kidney Injury persistent orthostatic hypotension.
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
HX anal bleeding ulcers: 09/03/23 s/p flex sig, suture of small rectal ulcer, Botox chemodenervation
No prior history of genital HSV. Not sexually active since 5 yrs ago.
Gait dysfunction
Hx Steroid-induced myopathy
Diet: regular
DVT ppx: SCD
Code status: DNR
Anticipated Discharge: 24 - 48 hours
Subjective/Interval History
-
Date of Service: December 15, 2024
No acute overnight events
Objective Data
-
Labs:
Laboratory Results
12/15/24 12/15/24
06:14 06:15
WBC 13.5 H
Hgb 10.6 L
Hct 31.4 L
Plt Count 272
Sodium 139
Potassium 4.8
Chloride 108 H
Carbon Dioxide 25
BUN 25 H
Creatinine 0.7
Glucose 194 H
Calcium 9.8
Vital Signs:
Vital Signs
Temp Pulse Resp BP Pulse Ox
97.6 F 77 12 127/78 95
12/15/24 04:08 12/15/24 04:08 12/15/24 04:08 12/15/24 04:08 12/15/24 04:08
I&O
12/14/24 12/15/24 12/16/24
06:59 06:59 06:59
Intake Total 240 / 240 420 / 420 0 / 0
Balance 240 / 240 420 / 420 0 / 0
Review of Systems
-
History Source: Patient
Constitutional: Reports No Symptoms
Respiratory: Reports Cough, Hemoptysis, Trouble Breathing and Wheezing
Cardiac: Reports No Symptoms
Abdomen/GI: Reports No Symptoms
Musculoskeletal: Reports No Symptoms
Neuro: Reports Dizzy
Physical Exam
-
General: Well Developed and Well Nourished
HEENT: Normocephalic, Atraumatic and Oxygen
Respiratory: Wheezes and Accessory Resp Muscle Use
Cardiac: Regular Rhythm and S1/S2
GI: Soft, Nontender, Nondistended and Normal Bowel Sounds
Musculoskeletal: No Clubbing, No Cyanosis and No Edema
Skin: Warm and Dry
Neuro: Awake, Alert and Oriented
Psych: Agitated
[2024-12-15] MEDS: NON-FORMULARY ITEM 2 UNIT INH ×2 (08:37→19:56)
[2024-12-15] MEDS: NON-FORMULARY ITEM INH ×2 (08:40→13:33)
[2024-12-15 08:50] LABS: Glycohemoglobin (HgbA1c) 5.7 % (4.0-5.6)
[2024-12-15] MEDS: NON-FORMULARY ITEM 1 SPRAY NASAL (09:00)
[2024-12-15] MEDS: CLARITIN 10 MG PO (09:00)
[2024-12-15] MEDS: PROTONIX 40 MG PO (09:01)
[2024-12-15] MEDS: VIBRAMYCIN 100 MG PO ×2 (09:01→20:39)
[2024-12-15] MEDS: FOLVITE 1 MG PO (09:01)
[2024-12-15] MEDS: VISBIOME 2 CAP PO (09:01)
[2024-12-15] MEDS: KCL 20 MEQ PO ×2 (09:02→20:39)
[2024-12-15] MEDS: LASIX 40 MG PO (09:03)
[2024-12-15] MEDS: OSCAL 500 + D 500 MG PO (09:03)
[2024-12-15] MEDS: ProAmatine 10 MG PO ×3 (09:04→18:22)
[2024-12-15] MEDS: CYMBALTA DELAYED RELEASE 30 MG PO (09:05)
[2024-12-15] MEDS: CELEBREX 100 MG PO ×2 (09:05→20:39)
[2024-12-15] MEDS: SOLU-MEDROL PF 40 MG IV (09:05)
[2024-12-15] MEDS: RESTASIS 0.05% OPHTHALMIC EMULSION 1 DROPS BOTH EYES ×2 (09:07→20:39)
--- NOTE | 2024-12-15 11:15 | CON.PUL ---
Consultation
Consultation Request
Date/Time Consultation Requested: 12/15/24
Date/Time Consultation Performed: 12/15/24
Performing Provider: Sandra
Reason for Consultation: PNA
Medical History
-
History of Present Illness:
Patient is a 74 year old F w/ extensive complicated respiratory HX which she follows closely with pulmonology at [facility], known to Dr Neely, recently treated as an outpatient for Pseudomonas pneumonia with Levaquin, presents to the emergency
department for evaluation of 2 days of generalized weakness and fatigue associated with a dry nonproductive cough and shortness of breath. She notes that following 14 day course of abx for pseudomonas she did feel improved symptoms, but 2 weeks
later she had noticed her symptoms recur. CXR showing no acute changes/path.
She feels her cough/sputum are worsening. Productive yellow phlegm.
Past Medical History
Past Medical History: Other (see list below)
Social History
Tobacco: Non-smoker
Alcohol: None
Drug: None
Family History
Family History: Reviewed & Not Pertinent
Allergies / Home Medications
Allergies
Allergy/AdvReac Type Severity Reaction Status Date / Time
alendronate sodium (From Allergy abd pain, Verified 12/13/24 12:00
Fosamax) diarrhea
azithromycin Allergy Rash Verified 12/13/24 12:00
calamine Allergy Rash Verified 12/13/24 12:00
camphor Allergy Shortness Verified 12/13/24 12:00
of Breath
chlorhexidine Allergy Shortness Verified 12/13/24 12:00
of Breath
codeine Allergy Rash Verified 12/13/24 12:00
glucose (From Gammagard S/D) Allergy Unknown Verified 12/13/24 12:00
glycine (From Gammagard S/D) Allergy Unknown Verified 12/13/24 12:00
IgA less than or equal to 50 Allergy Unknown Verified 12/13/24 12:00
mcg/mL (From Gammagard S/D)
immune globulin,gamma (IgG) Allergy Unknown Verified 12/13/24 12:00
human (From Gammagard S/D)
latex Allergy Rash Verified 12/13/24 12:00
morphine Allergy Rash Verified 12/13/24 12:00
tetanus toxoid, adsorbed Allergy Rash Verified 12/13/24 12:00
tuberculin, purified protein Allergy Rash Verified 12/13/24 12:00
deriva
diltiazem (From Cardizem) AdvReac edema,BP Verified 12/13/24 12:00
drop
blood transfusion Allergy Hives Uncoded 12/13/24 12:00
Home Medications
�Medication �Instructions �Recorded �Confirmed �Last Taken �Type
azelastine 137 mcg (0.1 %) nasal 1 spray intranasal DAILY Allergies 11/20/22 12/13/24 04/14/24 08:30 History
spray
fexofenadine 180 mg tablet 180 mg PO DAILY Allergies 11/20/22 12/13/24 04/14/24 08:30 History
gabapentin 600 mg tablet 600 mg PO TID Pain 11/20/22 12/13/24 12/13/24 History
krill 1 cap PO BID Supplement ##0 11/20/22 12/13/24 04/14/24 08:30 History
[id number]-[id number] 300
mg-90 mg-24 mg-50 mg capsule
(krill oil)
levothyroxine 112 mcg tablet 112 mcg PO MOWEFR@07 Thyroid 11/20/22 12/13/24 12/13/24 History
levothyroxine 125 mcg tablet 125 mcg PO SUTUTHSA@07 Thyroid 11/20/22 12/13/24 12/12/24 History
montelukast 10 mg tablet 10 mg PO HS Lung/breathing issues 11/20/22 12/13/24 04/13/24 22:00 History
ascorbic acid (vitamin C) 500 mg 500 mg PO QPM Supplement 07/03/23 12/13/24 04/14/24 08:30 History
tablet (Vitamin C)
calcium 250 mg (as 1 tab PO DAILY Supplement ##0 07/03/23 12/13/24 04/14/24 08:30 History
citrate)-vitamin D3 5 mcg (200
unit) tablet (Citracal Regular)
cyanocobalamin (vitamin B-12) 500 mcg PO DAILY Supplement 07/03/23 12/13/24 04/14/24 08:30 History
1,000 mcg tablet
duloxetine 30 mg capsule,delayed 30 mg PO DAILY Depression 07/03/23 12/13/24 12/13/24 History
release
fluticasone furoate 200 2 inh inhalation R BID 07/03/23 12/13/24 Unknown History
mcg/actuation blister powder for Lung/Breathing Issues
inhalation
levalbuterol tartrate 45 1 puff inhalation R Q8HPRN PRN sob 07/03/23 12/13/24 Unknown History
mcg/actuation aerosol inhaler
roflumilast 500 mcg tablet 500 mcg PO HS Lung/Breathing Issues 07/03/23 12/13/24 12/12/24 History
(Daliresp)
levalbuterol HCl 1.25 mg/3 mL 1.25 mg (3 mL) inhalation R Q6HPRN 07/12/23 12/13/24 08/15/23 Rx
solution for nebulization PRN sob/wheeze #0 mL
duloxetine 60 mg capsule,delayed 60 mg PO HS Depression ##0 08/17/23 12/13/24 12/12/24 History
release
benzonatate 100 mg capsule 100 mg PO TIDPRN PRN cough #30 caps 09/10/23 12/13/24 Unknown Rx
pantoprazole 40 mg tablet,delayed 40 mg PO DAILY 30 days #30 tabs 09/10/23 12/13/24 12/13/24 Rx
release
celecoxib 100 mg capsule (Celebrex) 100 mg PO BID ##0 04/14/24 12/13/24 12/12/24 History
furosemide 20 mg tablet 60 mg PO DAILY 1012/13/24 12/13/24 History
salmeterol 50 mcg/dose blister 1 inh inhalation R HS 06/02/24 12/13/24 12/12/24 History
powder for inhalation (Serevent
Diskus)
coenzyme Q10 100 mg capsule 100 mg PO DAILY 06/04/24 12/13/24 06/04/24 History
(CoQ-10)
docusate sodium 100 mg capsule 100 mg PO BID 06/04/24 12/13/24 06/04/24 History
(Colace)
folic acid 1 mg tablet 1 mg PO DAILY 06/04/24 12/13/24 06/04/24 History
melatonin 5 mg tablet 5 mg PO HS 06/04/24 12/13/24 06/04/24 History
potassium chloride 20 mEq 20 meq PO BID 06/04/24 12/13/24 12/13/24 History
tablet,extended release
cyclosporine 0.05 % eye drops in a 1 drp BOTH EYES Q12H 12/13/24 12/13/24 12/13/24 History
dropperette (Restasis)
doxycycline hyclate 100 mg capsule 100 mg PO BID superintendent container terminal 12/13/24 12/13/24 12/13/24 History
gabapentin 300 mg capsule 300 mg PO HS 12/13/24 12/13/24 12/12/24 History
ivabradine 5 mg tablet 2.5 mg PO BID 12/13/24 12/13/24 12/13/24 History
midodrine 10 mg tablet 10 mg PO TID 12/13/24 12/13/24 12/13/24 History
Review of Systems
-
History Source: Patient
All other systems: Negative unless noted
Vitals / Labs / Diagnostic Testing
Vital Signs
Temp Pulse Resp BP Pulse Ox
97.5 F 77 20 127/82 96
12/15/24 07:00 12/15/24 08:42 12/15/24 08:42 12/15/24 07:00 12/15/24 08:42
Lab Data
12/15/24 06:14
12/15/24 06:15
Microbiology
12/13/24 22:28 Sputum Respiratory Culture - Preliminary
12/13/24 22:28 Sputum Gram Stain - Preliminary
12/14/24 15:55 Urine Legionella Urinary Antigen - Final
Negative for Legionella pneumophila Serogroup 1 antigen.
A negative result does not rule out the possiblity of
Legionella infection due to other serogroups or species of
Legionella. Clinical correlation is recommended.
12/14/24 15:55 Urine Streptococcus pneumoniae Antigen (M - Final
Negative for Streptococcus pneumoniae antigen.
A negative result does not exclude infection with
Streptococcus pneumoniae. Clinical correlation is
recommended.
Diagnostic Testing:
Physical Exam
-
HEENT: Normocephalic, Anicteric and Moist Mucous Membranes
Cardiovascular: S1/S2 and Regular Rhythm
Respiratory: Clear and Non-Labored Respirations
GI: Soft, Non Distended and Non Tender
Neurology: Awake, Alert, Oriented and No Motor Deficits
Skin: Warm, Dry and Good Color
General: Comfortable and Other (NAD)
Assessment
-
Patient is a 74 year old F w/ extensive complicated respiratory HX which she follows closely with pulmonology at [facility], known to Dr Neely, recently treated as an outpatient for Pseudomonas pneumonia with Levaquin, presents to the emergency
department for evaluation of 2 days of generalized weakness and fatigue associated with a dry nonproductive cough and shortness of breath. She notes that following 14 day course of abx for pseudomonas she did feel improved symptoms, but 2 weeks
later she had noticed her symptoms recur. CXR showing no acute changes/path.
She feels her cough/sputum are worsening. Productive yellow phlegm. We are consulted for eval.
Pseudomonas PNA, on LVQ
Recent treatment for pseudomonas, reportedly
Generalized weakness/fatigue
Mild leukocytosis
Chronic hypercarbic respiratory failure, VBG 08/24/23 7.39/60
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
Paroxysmal Atrial Fibrillation s/p Ablation
Asthma
Chronic Hypoxic Respiratory Failure, uses POC with ambulation
Monoclonal B-Cell Lymphocytosis
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
Maintained on Doxy BID by Mook
Bronchiectasis
Hypothyroidism
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
Cardiac Ablation
Hysterectomy
Microdiscectomy
Right Hip Replacement
Cataract
Plan
No significant hypoxemia noted on arrival, she uses a POC at baseline with exertion
Can wean to off on RA if sats >90%
There is known prior history of lung disease including NTM, bronchiectasis, CVID, Asthma and now with new pseudomonas
Recently treated with abx as OP for pseudomonas, with suspected recurrence
Repeat sputum pending
She is only maintained on Doxy BID as suppressive abx for NTM
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
ID consult obtained due to multiple issues with drug allergies in past
She could benefit from inhaled tobra as OP to also reduce colony count/hospitalizations
She is placed on IV steroids which she has many side effects from
Will transition to PO taper
She declined albuterol due to Afib, will add Atrovent nebs which she can use wtih her home levalbuterol
CXR/CT obtained indicating no significant findings on my review compared to prior
Other imaging reviewed
ECHO results in past reviewed, stable function
She notes new findings of elevated cardiac markers, proBNP 1770
Repeat studies are pending
Diuresis added on
Will need outpatient pulmonary evaluation in our office including PFTs and 6MWT
Reviewed with patient
May consider d/c planning per team if outpatient abx regiment can be determined by ID
We will follow
Diagnostic Data
CXR 12/13/24-There is airspace disease in the right lower lobe which suggests pneumonia.
There is also airspace disease in the left lower lobe which is likely atelectasis/scarring as this is improved compared to the prior study
CT CHEST 12/16/23- 1. Micronodular and irregular opacities in the anterior right upper lobe and left upper lobe as above which are suggestive of bronchiolitis. This could be seen in association with mycobacterial infection. The left upper lobe
more severely affected as compared with the right.
2. Interval significant improvement of left basilar atelectasis, with residual partial atelectasis of posterior and medial basal segments of the left lower lobe. Decreased left hemithorax volume loss.
3. Significantly decreased pericardial effusion as compared with prior examination. Unchanged mild cardiomegaly.
4. Nonobstructive left nephrolithiasis.
ECHO 08/20/23- Normal biventricular size and systolic function without regional wall motion abnormality. No significant valvular disease. No prior study available for comparison.
Pulmonary function testing (� 03/16/2024 ): FEV1: post bronchodilator 1.68 L-72%. FVC:1.99 L at 65%. FEV1/FVC ratio:84%. T.39 L-66%. RV:62% RV/TLC ratio:39%. DLCO: 10.16-47%. DLCO/VA: 83%
Reports and relevant images were personally reviewed.
-----
Total time spent on this consultation _77__ minutes which includes review of history, physical exam, medications, llaboratory data, personal review of imaging, extensive review of outpatient records, and discussions with care team.
--- NOTE | 2024-12-15 12:06 | CON.CAR ---
Addendum entered and electronically signed by Seth Saeed DO 12/15/24 17:25:
I saw and examined the patient.
The Hebrew Cantor's note was reviewed and I agree with the note.
Comment:
Plan:
Cont Lasix diuresis. Will give lasix 20 mg IV X 1 today and resume lasix 60 mg daily tomorrow which is what she takes as outpt.
She does not appear largely volume overloaded.
Cont Midodrine for chronic orthostasis
pt is getting her Corlanor brought in today
Sinus with short atrial tachycardia. Cont tele.
Discussed with nursing.
HPI: Patient came to [facility] ER on Friday with increased SOB despite recent pulmonary treatment as an outpatient and was admitted with PNA, cardiology is now consulted at the request of patient for symptoms of dizziness, inability to get her usual
POTS medication and at her request. Patient previously followed with the other cardiology group, but during her admission 08/2023 she requested to change groups and now follows with Dr. Osman. Patient also follows locally with pulmonology,
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 Reno locally and also for her bronchiectasis. Patient says that back in November she had
a sputum culture with her steam heating installer at [place]. Around that time she had been empirically started on Augmentin and once the culture came back Pseudomonas the Augmentin was changed to Levaquin. Patient completed a 2-week course of Levaquin with
minimal improvement and came to the emergency room on Friday with ongoing SOB. Patient is now being followed by ID and IV antibiotics ordered. From a cardiac perspective, received request for consultation for symptoms of dizziness. Patient has a
history of atrial arrhythmia and patient had previous ablation at [facility] in 2007 and 2016. Patient has been intolerant of BB and CCB since then, but most recently has been tolerating a regimen of Corlanor 2.5 mg twice daily to help with orthostatic
hypotension and symptomatic inappropriate sinus tachycardia.
Original Note:
Consultation
Consultation Request
Date/Time Consultation Requested: 12/14/2024
Date/Time Consultation Performed: 12/15/2024
Requesting Provider: Dr. France, resident
Performing Provider: Dr. Saeed
Reason for Consultation: Symptomatic orthostasis, paroxysmal A-fib, patient request
Medical History
-
History of Present Illness:
Patient came to [facility] ER on Friday with increased SOB despite recent pulmonary treatment as an outpatient and was admitted with PNA, cardiology is now consulted at the request of patient for symptoms of dizziness, inability to get her usual POTS
medication and at her request. Patient previously followed with the other cardiology group, but during her admission 08/2023 she requested to change groups and now follows with Dr. Osman. Patient also follows locally with pulmonology,
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 Reno locally and also for her bronchiectasis. Patient says that back in November she had
a sputum culture with her steam heating installer at [place]. Around that time she had been empirically started on Augmentin and once the culture came back Pseudomonas the Augmentin was changed to Levaquin. Patient completed a 2-week course of Levaquin with
minimal improvement and came to the emergency room on Friday with ongoing SOB. Patient is now being followed by ID and IV antibiotics ordered. From a cardiac perspective, received request for consultation for symptoms of dizziness. Patient has a
history of atrial arrhythmia and patient had previous ablation at [facility] in 2007 and 2016. Patient has been intolerant of BB and CCB since then, but most recently has been tolerating a regimen of Corlanor 2.5 mg twice daily to help with orthostatic
hypotension and symptomatic inappropriate sinus tachycardia.
-ECG and telemetry reviewed by me, patient is largely SR without acute ST changes, but is having short runs of either A-fib or A. tach on telemetry.
PMH:
Chronic orthostasis
Autonomic dysfunction
Symptomatic inappropriate sinus tachycardia
Monoclonal B-cell lymphocytosis
Immunoglobulin deficiency per patient report
Paroxysmal Afib/tach
Hypothyroidism
Past Medical History
Past Medical History: Other (in HPI)
Past Surgical History: Cardiac (previous ablation, last ablation at [place] in 2017)
Social History
Tobacco: Non-Smoker
Alcohol: None
Drug: None
Personal:
Living: Alone (recently moved to the area from [place])
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
Family History
Family History: Reviewed & Not Pertinent
Allergies / Home Medications
Allergy/AdvReac Type Severity Reaction Status Date / Time
alendronate sodium (From Allergy abd pain, Verified 12/13/24 12:00
Fosamax) diarrhea
azithromycin Allergy Rash Verified 12/13/24 12:00
calamine Allergy Rash Verified 12/13/24 12:00
camphor Allergy Shortness Verified 12/13/24 12:00
of Breath
chlorhexidine Allergy Shortness Verified 12/13/24 12:00
of Breath
codeine Allergy Rash Verified 12/13/24 12:00
glucose (From Gammagard S/D) Allergy Unknown Verified 12/13/24 12:00
glycine (From Gammagard S/D) Allergy Unknown Verified 12/13/24 12:00
IgA less than or equal to 50 Allergy Unknown Verified 12/13/24 12:00
mcg/mL (From Gammagard S/D)
immune globulin,gamma (IgG) Allergy Unknown Verified 12/13/24 12:00
human (From Gammagard S/D)
latex Allergy Rash Verified 12/13/24 12:00
morphine Allergy Rash Verified 12/13/24 12:00
tetanus toxoid, adsorbed Allergy Rash Verified 12/13/24 12:00
tuberculin, purified protein Allergy Rash Verified 12/13/24 12:00
deriva
diltiazem (From Cardizem) AdvReac edema,BP Verified 12/13/24 12:00
drop
blood transfusion Allergy Hives Uncoded 12/13/24 12:00
�Medication �Instructions �Recorded �Confirmed �Type
azelastine 137 mcg (0.1 %) nasal 1 spray intranasal DAILY Allergies 11/20/22 12/13/24 History
spray
fexofenadine 180 mg tablet 180 mg PO DAILY Allergies 11/20/22 12/13/24 History
gabapentin 600 mg tablet 600 mg PO TID Pain 11/20/22 12/13/24 History
krill 1 cap PO BID Supplement ##0 11/20/22 12/13/24 History
gws-no-1-gji-bhn-yrcokthnexupg 300
mg-90 mg-24 mg-50 mg capsule
(krill oil)
levothyroxine 112 mcg tablet 112 mcg PO MOWEFR@07 Thyroid 11/20/22 12/13/24 History
levothyroxine 125 mcg tablet 125 mcg PO SUTUTHSA@07 Thyroid 11/20/22 12/13/24 History
montelukast 10 mg tablet 10 mg PO HS Lung/breathing issues 11/20/22 12/13/24 History
ascorbic acid (vitamin C) 500 mg 500 mg PO QPM Supplement 07/03/23 12/13/24 History
tablet (Vitamin C)
calcium 250 mg (as 1 tab PO DAILY Supplement ##0 07/03/23 12/13/24 History
citrate)-vitamin D3 5 mcg (200
unit) tablet (Citracal Regular)
cyanocobalamin (vitamin B-12) 500 mcg PO DAILY Supplement 07/03/23 12/13/24 History
1,000 mcg tablet
duloxetine 30 mg capsule,delayed 30 mg PO DAILY Depression 07/03/23 12/13/24 History
release
fluticasone furoate 200 2 inh inhalation R BID 07/03/23 12/13/24 History
mcg/actuation blister powder for Lung/Breathing Issues
inhalation
levalbuterol tartrate 45 1 puff inhalation R Q8HPRN PRN sob 07/03/23 12/13/24 History
mcg/actuation aerosol inhaler
roflumilast 500 mcg tablet 500 mcg PO HS Lung/Breathing Issues 07/03/23 12/13/24 History
(Daliresp)
levalbuterol HCl 1.25 mg/3 mL 1.25 mg (3 mL) inhalation R Q6HPRN 07/12/23 12/13/24 Rx
solution for nebulization PRN sob/wheeze #0 mL
duloxetine 60 mg capsule,delayed 60 mg PO HS Depression ##0 08/17/23 12/13/24 History
release
benzonatate 100 mg capsule 100 mg PO TIDPRN PRN cough #30 caps 09/10/23 12/13/24 Rx
pantoprazole 40 mg tablet,delayed 40 mg PO DAILY 30 days #30 tabs 09/10/23 12/13/24 Rx
release
celecoxib 100 mg capsule (Celebrex) 100 mg PO BID ##0 04/14/24 12/13/24 History
furosemide 20 mg tablet 60 mg PO DAILY 04/14/24 12/13/24 History
salmeterol 50 mcg/dose blister 1 inh inhalation R HS 06/02/24 12/13/24 History
powder for inhalation (Serevent
Diskus)
coenzyme Q10 100 mg capsule 100 mg PO DAILY 06/04/24 12/13/24 History
(CoQ-10)
docusate sodium 100 mg capsule 100 mg PO BID 06/04/24 12/13/24 History
(Colace)
folic acid 1 mg tablet 1 mg PO DAILY 06/04/24 12/13/24 History
melatonin 5 mg tablet 5 mg PO HS 06/04/24 12/13/24 History
potassium chloride 20 mEq 20 meq PO BID 06/04/24 12/13/24 History
tablet,extended release
cyclosporine 0.05 % eye drops in a 1 drp BOTH EYES Q12H 12/13/24 12/13/24 History
dropperette (Restasis)
doxycycline hyclate 100 mg capsule 100 mg PO BID fpc 12/13/24 12/13/24 History
gabapentin 300 mg capsule 300 mg PO HS 12/13/24 12/13/24 History
ivabradine 5 mg tablet 2.5 mg PO BID 12/13/24 12/13/24 History
midodrine 10 mg tablet 10 mg PO TID 12/13/24 12/13/24 History
Review of Systems
-
History Source: Patient
All other systems: Negative unless noted
Physical Exam
Vital Signs
Temp Pulse Resp BP Pulse Ox
97.5 F 77 20 127/82 96
12/15/24 07:00 12/15/24 08:42 12/15/24 08:42 12/15/24 07:00 12/15/24 08:42
GEN: NAD. AAOx3
HEENT: EOMI, MMM
LUNGS: Wearing oxygen at 2 L NC. No audible wheeze.
CV: SR on tele.
ABD: soft, BS+
EXT: No edema B/L LE
NEURO: Gross non-focal
SKIN: Warm, dry and pink. No rash
Lab Results
12/15/24 06:14
12/15/24 06:15
Troponin I < 0.012 ng/ml 12/13/24 12:22
Rgm-K-Vkfvpklpnwj Pept 1770 pg/ml 12/13/24 12:22
Impression / Plan
-
PCP: Dr. Juan Kamara
Cardiology: Dr. Osman
Pulm: Dr. Hillman at [place] and Dr. Neely locally
Impression:
Admitted with Pseudomonas PNA 12/13/24
Acute on chronic orthostasis
Chronic orthostasis
Autonomic dysfunction
Symptomatic inappropriate sinus tachycardia
Monoclonal B-cell lymphocytosis
Immunoglobulin deficiency per patient report
Paroxysmal Afib/tach
Hypothyroidism
Echo 08/20/23: Normal biventricular function size and systolic function without regional WMA, no significant valve disease
Echo 12/15/2024: Study pending
Plan:
-Patient came to [facility] ER on Friday with increased SOB despite recent pulmonary treatment as an outpatient and was admitted with PNA, cardiology is now consulted at the request of patient for symptoms of dizziness, inability to get her usual POTS
medication and at her request. Patient previously followed with the other cardiology group, but during her admission 08/2023 she requested to change groups and now follows with Dr. Osman. Patient also follows locally with pulmonology,
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 Reno locally and also for her bronchiectasis. Patient says that back in November she had
a sputum culture with her steam heating installer at [place]. Around that time she had been empirically started on Augmentin and once the culture came back Pseudomonas the Augmentin was changed to Levaquin. Patient completed a 2-week course of Levaquin with
minimal improvement and came to the emergency room on Friday with ongoing SOB. Patient is now being followed by ID and IV antibiotics ordered. From a cardiac perspective, received request for consultation for symptoms of dizziness. Patient has a
history of atrial arrhythmia and patient had previous ablation at [facility] in 2007 and 2016. Patient has been intolerant of BB and CCB since then, but most recently has been tolerating a regimen of Corlanor 2.5 mg twice daily to help with orthostatic
hypotension and symptomatic inappropriate sinus tachycardia.
-ECG and telemetry reviewed by me, patient is largely SR without acute ST changes, but is having short runs of either A-fib or A. tach on telemetry.
-Corlanor is not formulary at [facility] and patient was unable to bring her own supply in, but now reports her daughter will bring the Corlanor tablets to the hospital this evening. We will restart her usual dosing, she reports she usually takes
Corlanor at 9 AM and 6 PM.
-Patient has chronic orthostasis and her usual dose of midodrine 10 mg TID has been continued this admission
-proBNP is 1770 which is the highest level on record. Patient was taking Lasix 60 mg p.o. daily prior to admission and dosing here has been changed to 40 mg p.o. a.m. and 20 mg p.o. in the evening daily, so we will hold the usual 20 mg p.o. dose
for this evening and instead give her Lasix 20 mg IV x 1 this evening.
-Patient is disappointed at hospitalization and missing her grandson's high school graduation from [facility]. we reviewed realistic goals to manage her chronic orthostatic symptoms coupled with apparent volume overload. Specifically we talked
about that the patient might not be completely asymptomatic with her chronic orthostatic symptoms, but we are going to manage with all medications that she is able to tolerate to the best of our ability during this hospitalization.
[2024-12-15] MEDS: TYLENOL 650 MG PO ×2 (13:40→22:02)
--- NOTE | 2024-12-15 14:17 | CM ---
CM reviewed chart, patient seen bedside, remains on O2- reports she does have home oxygen that was her husbands. CM discussed PT recommendations of [facility], patient agreeable to referral to [facility], requesting Physical Therapist- Rafita. CM will
continue to follow for all discharge planning needs.
Plan; home, referral to [facility]
--- NOTE | 2024-12-15 14:28 | VATNOTE ---
Pt complaining of constant port pain. Pt stated she had an incident at the heme/onc office and her port bruised and she bled after heparin flush. Pt stated ever since then she has had pain at her port site. This VAT RN offered to reaccess port or
redress port. Pt declined. This VAT RN also asked pt if she had mentioned this to any of the physicians that she saw earlier today. She said she hadn't told the hospitalist. This RN TT hospitalist to make aware. Will continue to monitor.
--- NOTE | 2024-12-15 14:39 | W.PN.ID1 ---
Date of Service
Date of Service: December 15, 2024
Today's Communication
Continue cefepime.
Assessment / Plan
# RLL PNA
# Recent Pseudomonas (pansensitive) PNA 11/15/24 s/p 14d levofloxacin
# COPD/asthma/bronchiectasis
# Pulmonary RODRIGUEZ, not on tx due to asymptomatic
# Hypogammaglobulinemia on IVIG
# CLL
- urine Legionella Ag and Strep pneumo Ag neg (not sensitive tests).
-sputum culture pending
- Continue cefepime 2g IV q8 (d2).
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
COPD/asthma
Bronchiectasis
Hypogammaglobulinemia on IVIG
Chronic lymphocytic leukemia of B-cell type
P A-fib
Hypothyroidism
Recurrent sinusitis and pneumonia
Pulmonary RODRIGUEZ (observation)
Postural orthostatic tachycardia syndrome
Anal HSV
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
Chief Complaint
-: Pneumonia
Subjective / Review of Systems
Continues to cough with blood-streaked brown sputum.
Vital Signs / Physical Exam
Vital Signs
Vital Signs
Temp Pulse Resp BP Pulse Ox
98.0 F 75 18 127/86 98
12/15/24 11:00 12/15/24 11:00 12/15/24 11:00 12/15/24 11:00 12/15/24 11:00
Physical Exam
Constitutional: Non-toxic
Eyes: Sclera Anicteric
Cardiovascular: Regular Rate and S1/S2
Pulmonary: Clear
Gastrointestinal: Soft, Non Tender, Non Distended and Normal Bowel Sounds
Genito-Urinary: Negative CVA Tenderness
Extremities: Negative Edema
Neurological: AO x 3
Objective Data
Lab Data
Lab Results
12/15/24 06:14
12/15/24 06:15
Estimated Creat Clear 62 ml/min 12/15/24 06:15
Total Bilirubin 0.6 mg/dl (0.2-1.3) 12/14/24 04:27
AST 16 U/L (14-36) 12/14/24 04:27
ALT 10 U/L (0-35) 12/14/24 04:27
Alkaline Phosphatase 48 U/L (38-126) 12/14/24 04:27
Most recent labs reviewed.
Micro Results:
12/13/24 22:28 Respiratory Culture - Preliminary
Sputum Gram Stain - Preliminary
12/14/24 15:55 Legionella Urinary Antigen - Final
Urine Negative for Legionella pneumophila Serogroup 1 antigen.
A negative result does not rule out the possiblity of
Legionella infection due to other serogroups or species of
Legionella. Clinical correlation is recommended.
12/14/24 15:55 Streptococcus pneumoniae Antigen (M - Final
Urine Negative for Streptococcus pneumoniae antigen.
A negative result does not exclude infection with
Streptococcus pneumoniae. Clinical correlation is
recommended.
12/13/24 CXR: There is airspace disease in the right lower lobe which suggests pneumonia. There is also airspace disease in the left lower lobe which is likely atelectasis/scarring as this is improved compared to the prior study
[2024-12-15] MEDS: LASIX 20 MG IV (16:53)
[2024-12-15] MEDS: ATROVENT NEBULES INH (19:56)
[2024-12-15] MEDS: NON-FORMULARY ITEM 1 UNIT INH (19:57)
--- NOTE | 2024-12-15 20:10 | PTCARENOTE ---
Patient complaining of discomfort in her right chest port. IV team notified via tigertext and up to the bedside to evaluate.
[2024-12-15] MEDS: NON-FORMULARY ITEM 1 INH INH (20:38)
[2024-12-15] MEDS: NON-FORMULARY ITEM 2.5 MG PO (20:57)
--- NOTE | 2024-12-15 21:43 | PTCARENOTE ---
Patient complaining of bladder discomfort, believes she is retaining. Bladder scanned for 447. PVR 27. No straight cath intervention. Flomax ordered to reduce retention and promote urinary output.
[2024-12-15] MEDS: MELATONIN 5 MG PO (22:02)
[2024-12-15] MEDS: DALIRESP 500 MCG PO (22:02)
[2024-12-15] MEDS: NEURONTIN 300 MG PO (22:02)
[2024-12-15] MEDS: COLACE 100 MG PO (22:02)
[2024-12-15] MEDS: CYMBALTA DELAYED RELEASE 60 MG PO (22:02)
[2024-12-15] MEDS: SINGULAIR 10 MG PO (22:03)
[2024-12-15] MEDS: FLOMAX 0.4 MG PO (22:03)
[2024-12-15] MEDS: XANAX 0.5 MG PO (22:14)
[2024-12-16] VITALS (7 sets, daily range): BP systolic 115–135; BP diastolic 72–85; PULSE 95
[2024-12-16 04:02] LABS: Hematocrit 26.2 % (37.0-47.0); Hemoglobin 8.9 g/dL (12.0-16.0); Mean Corpuscular Volume 91.3 fL (81.0-99.0); Mean Platelet Volume 9.5 fL (7.4-10.4); Platelet Count 224 10^3/uL (130-400); Red Blood Cell Count 2.87 10^6/uL (4.20-5.40); Red Cell Dist. Width 14.4 % (11.5-14.5); White Blood Cell Count 11.4 10^3/uL (4.8-10.8)
[2024-12-16 04:28] LABS: Blood Urea Nitrogen 26 mg/dl (7-17); Calcium 7.9 mg/dl (8.4-10.2); Carbon Dioxide 22 mmol/L (22-30); Chloride 115 mmol/L (98-107); Estimated Creatinine Clearance 54 ml/min; Glucose 155 mg/dl (70-99); Potassium 3.6 mmol/L (3.5-5.1); Sodium 139 mmol/L (135-145); eGFR > 60.00
[2024-12-16] MEDS: SYNTHROID 125 MCG PO (06:20)
[2024-12-16] MEDS: STERILE WATER FOR INJECTION 10 ML IV (06:20)
[2024-12-16] MEDS: MAXIPIME 2000 MG IV (06:20)
[2024-12-16] MEDS: NEURONTIN 600 MG PO ×3 (06:20→22:01)
[2024-12-16] MEDS: NON-FORMULARY ITEM 1 UNIT INH ×2 (07:53→19:34)
[2024-12-16] MEDS: ATROVENT NEBULES INH ×2 (07:54→09:45)
[2024-12-16] MEDS: NON-FORMULARY ITEM 2 UNIT INH ×2 (07:54→19:22)
--- NOTE | 2024-12-16 08:00 | W.PN.HOSP.TC ---
Today's Communication/Plan
-
- cx growing strep
- possible dc tw
Assessment / Plan
Assessment / Plan
Assessment:
74yo F pmh afib, COPD, asthma, hypothyroidism, and monoclonal B-cell lymphocytosis admitted to [facility] 12/13 for SOB. Dx Pseudomonas pneumonia 3 weeks ago via sputum cx performed by plant sprayer, was prescribed levaquin. +worsening dyspnea x2d,
nonproductive cough, generalized weakness, fatigue.
Plan:
RLL Pna
Recurrent LLL PNA
- improving
- cough w deep breathing - likely reactive airway
- small hemoptysis in thick yellow sputum
- recent Pseudomonas pna 3 weeks ago - treated w levaquin
- associated hypoxia
- CXR: There is airspace disease in the right lower lobe which suggests pneumonia. There is also airspace disease in the left lower lobe which is likely atelectasis/scarring as this is improved compared to the prior study
- hx pulm RODRIGUEZ
- cefepime
- solumedrol
- pt to have levalbuterol brought home
- O2 to SpO2>93
- appreciate pulm and ID input
Prx Afib
POTS
- dizziness during PT
- pt to have ivabradine brought from home
- appreciate cardiology input
COPD
Asthma
Hypothyroidism
Monoclonal B-cell Lymphocytosis
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
Arthritis p/w weakness confusion encephalopathy
Hyponatremia
HX Acute Kidney Injury persistent orthostatic hypotension.
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
HX anal bleeding ulcers: 09/03/23 s/p flex sig, suture of small rectal ulcer, Botox chemodenervation
No prior history of genital HSV. Not sexually active since 5 yrs ago.
Gait dysfunction
Hx Steroid-induced myopathy
Diet: regular
DVT ppx: SCD
Code status: DNR
Anticipated Discharge: Within 24 hours
Subjective/Interval History
-
Date of Service: December 16, 2024
Bladder discomfort overnight, scanned for 447mL. No straight cath, was ordered flomax. Disappointed she will miss her grandson's graduation today.
Objective Data
-
Labs:
Laboratory Results
12/16/24
03:41
WBC 11.4 H
Hgb 8.9 L
Hct 26.2 L
Plt Count 224
Sodium 139
Potassium 3.6
Chloride 115 H
Carbon Dioxide 22
BUN 26 H
Creatinine 0.8
Glucose 155 H
Calcium 7.9 L D
Vital Signs:
Vital Signs
Temp Pulse Resp BP Pulse Ox
97.7 F 76 16 133/83 98
12/16/24 07:34 12/16/24 07:34 12/16/24 07:34 12/16/24 07:34 12/16/24 07:34
I&O
12/15/24 12/16/24 12/17/24
06:59 06:59 06:59
Intake Total 420 / 420 0 / 0
Output Total 420 / 420
Balance 420 / 420 -420 / -420
Review of Systems
-
History Source: Patient
Constitutional: Reports No Symptoms
Respiratory: Reports Cough and Trouble Breathing
Cardiac: Reports No Symptoms
Abdomen/GI: Reports No Symptoms
Neuro: Reports No Symptoms
Physical Exam
-
General: Well Developed and Well Nourished
HEENT: Normocephalic and Atraumatic
Respiratory: Clear to Auscultation and Accessory Resp Muscle Use
Cardiac: Regular Rhythm and S1/S2
GI: Soft, Nontender, Nondistended and Normal Bowel Sounds
Musculoskeletal: No Clubbing, No Cyanosis and No Edema
Skin: Warm and Dry
Neuro: Awake, Alert and Oriented
Psych: Agitated
[2024-12-16] MEDS: NON-FORMULARY ITEM INH (08:01)
[2024-12-16] MEDS: CELEBREX 100 MG PO ×2 (08:38→21:06)
[2024-12-16] MEDS: KCL 20 MEQ PO ×3 (08:38→21:06)
[2024-12-16] MEDS: LASIX 40 MG PO (08:38)
[2024-12-16] MEDS: VISBIOME 2 CAP PO (08:38)
[2024-12-16] MEDS: ProAmatine 10 MG PO ×3 (08:39→18:26)
[2024-12-16] MEDS: OSCAL 500 + D 500 MG PO (08:39)
[2024-12-16] MEDS: FLOMAX 0.4 MG PO (08:39)
[2024-12-16] MEDS: DELTASONE 40 MG PO (08:39)
[2024-12-16] MEDS: FOLVITE 1 MG PO (08:39)
[2024-12-16] MEDS: VIBRAMYCIN 100 MG PO (08:40)
[2024-12-16] MEDS: RESTASIS 0.05% OPHTHALMIC EMULSION 1 DROPS BOTH EYES ×2 (08:59→21:07)
[2024-12-16] MEDS: CYMBALTA DELAYED RELEASE 30 MG PO (09:00)
[2024-12-16] MEDS: NON-FORMULARY ITEM 2.5 MG PO ×2 (09:00→21:07)
[2024-12-16] MEDS: PROTONIX 40 MG PO (09:00)
[2024-12-16] MEDS: CLARITIN 10 MG PO (09:00)
[2024-12-16] MEDS: NON-FORMULARY ITEM 1 SPRAY NASAL (09:21)
--- NOTE | 2024-12-16 09:39 | W.PN.CARDCBS ---
Addendum entered and electronically signed by Matt Mcdaniel MD 12/16/24 14:57:
74-year-old woman admitted with pneumonia on September 13. We are asked to review regarding POTS treated with ivabradine.
PMH: Monoclonal B-cell lymphocytosis, receiving IVIG, bronchiectasis, history of POTS/inappropriate sinus tachycardia, PAF not on anticoagulation, LINQ monitor 2023, history of ablation at [facility], details unknown, orthostasis, on midodrine,
dysautonomia, hyponatremia history of lower GI bleed
Current meds: Celebrex, cyclosporine eyedrops, Cymbalta, Claritin, folic acid, Neurontin, ivabradine 2.5 mg twice daily, levothyroxine, melatonin, Singulair, pantoprazole, potassium 20 mill equivalents daily, Daliresp, furosemide 60 mg a day,
insulin, prednisone 40 mg a day, midodrine 10 mg 3 times daily, Flomax, ceftriaxone, Xopenex
Medication intolerances: Beta-blockers and diltiazem, numerous other drugs
127/74, pulse 75, respirate 18, afebrile, coughing but no acute distress, head neck exam unremarkable lungs with some rhonchi crackles in bases, abdomen benign extremities trace edema with some chronic skin changes
White count 11.4, hemoglobin 8.9, BUN/creatinine 26 and 0.8
Echo December 14, 2024: EF 55-60%, trace MR, MAC, trace aortic regurgitation, mild TR, pulmonary artery systolic pressure 43
ECG: Normal sinus rhythm, possible left atrial enlargement, inferior IN, nonspecific ST and T changes
Telemetry: Runs of nonsustained VT
Impression:
See below as per Yessenia Rodriguez. Also nonsustained VT.
On furosemide with elevated proBNP, but no prior diagnosis of HFpEF.
Reviewed in detail and agree, unless specifically noted otherwise
Plan:
From the standpoint of POTS/inappropriate sinus tachycardia, she seems stable. She is back on ivabradine.
Telemetry shows some nonsustained ventricular tachycardia. She is intolerant of numerous medications including diltiazem and metoprolol. LV function is normal, and there is no history of obstructive CAD, so at this point would not treat further.
She has not had a stress test here in the [employer] system, this can be considered as an outpatient. She also has a LINQ monitor in place
She has received IV Lasix x 1 for a proBNP of 1770. Still receiving furosemide 40 mg daily. We could consider the use of SGLT2 antagonists and consider a diagnosis of HFpEF. Will need to review cost and history of UTIs, though patient has many
medication intolerances.
We can arrange for outpatient cardiac follow-up.
Original Note:
Today's Communication / Plan
-
Lasix 40 mg IV x1 now
KCl 20 meq x1 now
Follow H&H
Impression / Plan
-
PCP: Dr. Juan Kamara
Cardiology: Dr. Osman
Pulm: Dr. Hillman at [place] and Dr. Neely locally
Impression:
Admitted with Pseudomonas PNA 12/13/24
Acute on chronic orthostasis
Chronic orthostasis
Autonomic dysfunction
Symptomatic inappropriate sinus tachycardia
Monoclonal B-cell lymphocytosis
Immunoglobulin deficiency per patient report
Paroxysmal Afib/tach
Hypothyroidism
Possible acute HFpEF/volume overload
Echo 08/20/23: Normal biventricular function size and systolic function without regional WMA, no significant valve disease
Echo 12/15/2024: EF 55 to 60%, normal diastolic function, trace MR, trace aortic regurgitation, mild TR with PAP 43 mmHg, compared to echo 08/2023 there is no significant change
Plan:
-Compared and contrasted echo studies from 08/20/2023 and 12/15/2024. Overall EF remains preserved and PAP increased to 43 mmHg in the setting of volume overload
-Patient was taking Lasix 60 mg PO daily prior to admission and dosing here has been changed to 40 mg PO AM and 20 mg PO in the evening daily. Patient was given Lasix 20 mg IV times 1 in the evening on 12/15/2024, patient reports no increase in
urine output. proBNP 1770 on admission, this is the highest level on record. We will try dose of Lasix 40 mg IV times 21/06/25 afternoon and hold the previously planned 20 mg PO dose.
-GDMT limited by symptomatic orthostasis.
-Outpatient dose of Corlanor 2.5 mg BID restarted 12/15/2024 evening
-Patient has chronic orthostasis and her usual dose of midodrine 10 mg TID has been continued this admission
-Telemetry reviewed by me, short runs of Atach with aberrancy on telemetry.
-Potassium 3.6 on labs 12/16/2024 reviewed by me. Will give additional KCl 20 mEq x 1 now, ordered by me
-Hgb 8.9. Reviewed with hospitalist attending and resident.
HPI: Patient came to [facility] ER on Friday with increased SOB despite recent pulmonary treatment as an outpatient and was admitted with PNA, cardiology is now consulted at the request of patient for symptoms of dizziness, inability to get her usual
POTS medication and at her request. Patient previously followed with the other cardiology group, but during her admission 08/2023 she requested to change groups and now follows with Dr. Osman. Patient also follows locally with pulmonology,
[place], and then also follows with pulmonology at [place] for her history of monoclonal B-cell lymphocytosis for which she takes chronic IVIG that is managed by Dr. Reno locally and also for her bronchiectasis. Patient says that back in November she had
a sputum culture with her public relations counselor at [place]. Around that time she had been empirically started on Augmentin and once the culture came back Pseudomonas the Augmentin was changed to Levaquin. Patient completed a 2-week course of Levaquin with
minimal improvement and came to the emergency room on Friday with ongoing SOB. Patient is now being followed by ID and IV antibiotics ordered. From a cardiac perspective, received request for consultation for symptoms of dizziness. Patient has a
history of atrial arrhythmia and patient had previous ablation at [facility] in 2007 and 2016. Patient has been intolerant of BB and CCB since then, but most recently has been tolerating a regimen of Corlanor 2.5 mg twice daily to help with orthostatic
hypotension and symptomatic inappropriate sinus tachycardia.
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
Subjective
Date of Service: December 16, 2024
Disappointed regarding echo findings
Objective
Labs:
12/16/24 03:41
12/16/24 03:41
Labs
Hgb 8.9 g/dL (12.0-16.0) L 12/16/24 03:41
Hct 26.2 % (37.0-47.0) L 12/16/24 03:41
Plt Count 224 10^3/uL (130-400) 12/16/24 03:41
Sodium 139 mmol/L (135-145) 12/16/24 03:41
Potassium 3.6 mmol/L (3.5-5.1) 12/16/24 03:41
BUN 26 mg/dl (7-17) H 12/16/24 03:41
Creatinine 0.8 mg/dL (0.6-1.0) 12/16/24 03:41
Glucose 155 mg/dl (70-99) H 12/16/24 03:41
Troponins
12/13/24
12:22
Troponin I < 0.012
Vital Signs and I&O:
Vital Signs
Temp Pulse Resp BP Pulse Ox
97.7 F 79 20 133/83 96
12/16/24 07:34 12/16/24 08:01 12/16/24 08:01 12/16/24 08:39 12/16/24 08:01
Vital Signs
Temp Pulse Resp BP Pulse Ox
97.7 F 79 20 133/83 96
12/16/24 07:34 12/16/24 08:01 12/16/24 08:01 12/16/24 08:39 12/16/24 08:01
Intake & Output
12/14/24 12/15/24 12/16/24 12/17/24
06:59 06:59 06:59 06:59
Intake Total 240 / 240 420 / 420 0 / 0
Output Total 420 / 420
Balance 240 / 240 420 / 420 -420 / -420
Physical Exam
Physical Exam
GEN: AAO x3
LUNGS: 2 L NC
CV: SR on tele
EXT: +1 B/L LE edema
--- NOTE | 2024-12-16 10:09 | PN.CDI ---
CDI
- -
CDI:
Physician Documentation Request
Admit Date: 12/13/24 22:08
Dear Cardiology,
Please review the following and provide your response in the progress notes.
Clinical Indicators:
- Patient admit for RLL pseudomonas pneumonia
- 12/15 Cardiology 'taking Lasix 60 mg p.o. daily prior to admission'
- 'proBNP is 1770 which is the highest level on record'
- 12/15 20mg IV Lasix given
- 12/15 Echo EF 55-60%
- No history of CHF
Please clarify the diagnosis with the above findings including the use of IV Lasix:
Acute HFpEF
Acute on chronic HFpEF
Chronic HFpEF
Other (please specify)
Use of terms such as suspected, likely, concern for, or probable (associated with a specific diagnosis that is being evaluated, monitored, or treated as if it exists) are acceptable and can be coded in the inpatient setting, when documented at the
time of discharge.
Thank you,
Evert Banks RN
CDI Specialist
Please use your independent medical judgment in providing your response.
--- NOTE | 2024-12-16 11:25 | W.PN.ID1 ---
Date of Service
Date of Service: December 16, 2024
Today's Communication
- At time of discharge, transition to amoxicillin 1000mg po q8h through 12/23/24.
Assessment / Plan
# Pneumococcal RLL PNA
# Recent Pseudomonas (pansensitive) PNA 11/15/24 s/p 14d levofloxacin
# COPD/asthma/bronchiectasis
# Pulmonary RODRIGUEZ, not on tx due to asymptomatic
# Hypogammaglobulinemia on IVIG
# CLL
- urine Legionella Ag and Strep pneumo Ag neg (not sensitive tests).
-sputum culture Streptococcus pneumoniae
- De-escalate cefepime 2g IV q8 (d3) to ceftriaxone 2g IV q24.
- At time of discharge, transition to amoxicillin 1000mg po q8h through 12/23/24.
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
COPD/asthma
Bronchiectasis
Hypogammaglobulinemia on IVIG
Chronic lymphocytic leukemia of B-cell type
P A-fib
Hypothyroidism
Recurrent sinusitis and pneumonia
Pulmonary RODRIGUEZ (observation)
Postural orthostatic tachycardia syndrome
Anal HSV
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
Chief Complaint
-: Pneumonia
Subjective / Review of Systems
Not coughing as much. No hemoptysis today.
Vital Signs / Physical Exam
Vital Signs
Vital Signs
Temp Pulse Resp BP Pulse Ox
97.7 F 79 20 133/83 96
12/16/24 07:34 12/16/24 08:01 12/16/24 08:01 12/16/24 08:39 12/16/24 09:08
Physical Exam
Constitutional: Non-toxic
Cardiovascular: Regular Rate and S1/S2
Pulmonary: Wheezes (mild )
Gastrointestinal: Soft, Non Tender and Non Distended
Extremities: Negative Edema
Neurological: AO x 3
Objective Data
Lab Data
Lab Results
12/16/24 03:41
12/16/24 03:41
Estimated Creat Clear 54 ml/min 12/16/24 03:41
Total Bilirubin 0.6 mg/dl (0.2-1.3) 12/14/24 04:27
AST 16 U/L (14-36) 12/14/24 04:27
ALT 10 U/L (0-35) 12/14/24 04:27
Alkaline Phosphatase 48 U/L (38-126) 12/14/24 04:27
Most recent labs reviewed.
Micro Results:
12/13/24 22:28 Respiratory Culture - Preliminary
Sputum Streptococcus pneumoniae
Gram Stain - Preliminary
12/14/24 15:55 Legionella Urinary Antigen - Final
Urine Negative for Legionella pneumophila Serogroup 1 antigen.
A negative result does not rule out the possiblity of
Legionella infection due to other serogroups or species of
Legionella. Clinical correlation is recommended.
12/14/24 15:55 Streptococcus pneumoniae Antigen (M - Final
Urine Negative for Streptococcus pneumoniae antigen.
A negative result does not exclude infection with
Streptococcus pneumoniae. Clinical correlation is
recommended.
12/13/24 CXR: There is airspace disease in the right lower lobe which suggests pneumonia. There is also airspace disease in the left lower lobe which is likely atelectasis/scarring as this is improved compared to the prior study
Care Review
Plan reviewed with: Physician (Dr. Deann Durand and team)
--- NOTE | 2024-12-16 11:26 | W.PN.PUL3 ---
Today's Communication / Plan
-
Doing well in terms of treatments, she prefers to be on 50mg prednisone, will adjust
Transition to PO abx per ID-Amoxicillin
Resumed on diuresis per team, no changes in her ECHO
Outpatient FU in our office on discharge, we will arrange
Discharge planning otherwise per team
Assessment
-
Patient is a 74 year old F w/ extensive complicated respiratory HX which she follows closely with pulmonology at [facility], known to Dr Neely, recently treated as an outpatient for Pseudomonas pneumonia with Levaquin, presents to the emergency
department for evaluation of 2 days of generalized weakness and fatigue associated with a dry nonproductive cough and shortness of breath. She notes that following 14 day course of abx for pseudomonas she did feel improved symptoms, but 2 weeks
later she had noticed her symptoms recur. CXR showing no acute changes/path.
She feels her cough/sputum are worsening. Productive yellow phlegm. We are consulted for eval.
Strep PNA
Recent Pseudomonas PNA s/p 14-day course of LVQ
Generalized weakness/fatigue
Mild leukocytosis
Chronic hypercarbic respiratory failure, VBG 08/24/23 7.39/60
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
Paroxysmal Atrial Fibrillation s/p Ablation
Asthma
Chronic Hypoxic Respiratory Failure, uses POC with ambulation
Monoclonal B-Cell Lymphocytosis
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
Maintained on Doxy BID by [facility]
Bronchiectasis
Hypothyroidism
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
Cardiac Ablation
Hysterectomy
Microdiscectomy
Right Hip Replacement
Cataract
Plan
No significant hypoxemia noted on arrival, she uses a POC at baseline with exertion
Can wean to off on RA if sats >90%
There is known prior history of lung disease including NTM, bronchiectasis, CVID, Asthma and now with new strep
Recently treated with abx as OP for pseudomonas
She is only maintained on Doxy BID as suppressive abx for NTM
Reassurance she does not have recurrent pseudomonas
ID consult obtained due to multiple issues with drug allergies in past
Complete abx per team
She is placed on IV steroids which she has many side effects from
Will transition to PO taper--she prefers 50mg dose, will change with plan for taper
She declined albuterol due to Afib, will add Atrovent nebs which she can use wtih her home levalbuterol
I reviewed atrovent use again today as she had declined
CXR/CT obtained indicating no significant findings on my review compared to prior
Other imaging reviewed
ECHO results in past reviewed, stable function
She notes new findings of elevated cardiac markers, proBNP 1769
Repeat studies remain unchanged
Diuresis resumed
Will need outpatient pulmonary evaluation in our office including PFTs and 6MWT
Reviewed with patient
D/c planning per team if outpatient abx regiment can be determined by ID
Diagnostic Data
CXR 12/13/24-There is airspace disease in the right lower lobe which suggests pneumonia.
There is also airspace disease in the left lower lobe which is likely atelectasis/scarring as this is improved compared to the prior study
CT CHEST 12/16/23- 1. Micronodular and irregular opacities in the anterior right upper lobe and left upper lobe as above which are suggestive of bronchiolitis. This could be seen in association with mycobacterial infection. The left upper lobe
more severely affected as compared with the right.
2. Interval significant improvement of left basilar atelectasis, with residual partial atelectasis of posterior and medial basal segments of the left lower lobe. Decreased left hemithorax volume loss.
3. Significantly decreased pericardial effusion as compared with prior examination. Unchanged mild cardiomegaly.
4. Nonobstructive left nephrolithiasis.
ECHO 12/16/24- Normal left ventricular size, wall thickness and systolic function. No regional wall motion abnormalities are seen. LV ejection fraction is 55-60% by Aranda's method of discs. Normal diastolic function. Mitral valve opens normally.
Thickened calcified mitral valve leaflets. Mitral annular calcification. Trace mitral regurgitation. Trileaflet, sclerotic aortic valve. Thickened aortic valve with normal leaflet excursion. Trace aortic regurgitation is seen. Tricuspid valve
opens normally. Mild tricuspid regurgitation. Estimated pulmonary artery pressure of 43 mmHg, assuming a right atrial pressure of 20 mmHg. Since echo August 2023, there is no significant change.
08/20/23- Normal biventricular size and systolic function without regional wall motion abnormality. No significant valvular disease. No prior study available for comparison.
Pulmonary function testing (� 03/16/2024 ): FEV1: post bronchodilator 1.68 L-72%. FVC:1.99 L at 65%. FEV1/FVC ratio:84%. T.39 L-66%. RV:62% RV/TLC ratio:39%. DLCO: 10.16-47%. DLCO/VA: 83%
Reports and relevant images were personally reviewed.
-----
Total time spent on this consultation _51__ minutes which includes review of history, physical exam, medications, llaboratory data, personal review of imaging, extensive review of outpatient records, and discussions with care team.
Subjective Data
-
Date of Service:
Date of Service: December 16, 2024
Chief Complaint: Pulmonary Follow Up
Subjective:
No new complaints, had an issue in the bathroom with tachycardia
She notes that RT never brought Atrovent in, but she had refused earlier
Refusing vest due to her PORT as well
Objective Data
Data Reviewed
Vital Signs / I&O / Oxygen:
Vital Signs
Temp Pulse Resp BP Pulse Ox
97.7 F 79 20 133/83 96
12/16/24 07:34 12/16/24 08:01 12/16/24 08:01 12/16/24 08:39 12/16/24 09:08
Intake and Output
12/15/24 12/16/24 12/17/24
06:59 06:59 06:59
Intake Total 420 / 420 0 / 0
Output Total 420 / 420
Balance 420 / 420 -420 / -420
SaO2 96
Nasal Cannula flow liters per 2
minute
Physical Exam
General: Comfortable and Other (NAD)
HEENT: Normocephalic, Anicteric and Moist Mucous Membranes
Cardiovascular: S1-S2 and Regular Rhythm
Respiratory: Clear and Non-Labored Respirations
GI: Soft, Non Distended and Non Tender
Neurology: Awake, Alert, Oriented and No Motor Deficits
Skin: Warm, Dry and Good Color
Labs/Micro/Reports
Lab Data
12/16/24 03:41
12/16/24 03:41
Microbiology
12/13/24 22:28 Sputum Respiratory Culture - Preliminary
Streptococcus pneumoniae
12/13/24 22:28 Sputum Gram Stain - Preliminary
12/14/24 15:55 Urine Legionella Urinary Antigen - Final
Negative for Legionella pneumophila Serogroup 1 antigen.
A negative result does not rule out the possiblity of
Legionella infection due to other serogroups or species of
Legionella. Clinical correlation is recommended.
12/14/24 15:55 Urine Streptococcus pneumoniae Antigen (M - Final
Negative for Streptococcus pneumoniae antigen.
A negative result does not exclude infection with
Streptococcus pneumoniae. Clinical correlation is
recommended.
[2024-12-16] MEDS: ATROVENT NEBULES 0.5 MG INH ×2 (13:28→19:24)
[2024-12-16] MEDS: LASIX 40 MG IV (13:46)
[2024-12-16] MEDS: ROCEPHIN 2000 MG IV (13:55)
[2024-12-16] MEDS: STERILE WATER FOR INJECTION 20 ML IV (13:55)
--- NOTE | 2024-12-16 15:19 | CM ---
CM reviewed chart, patient seen bedside, reports potential discharge tomorrow. Patient plan remains home with Hannah DUNCAN. CM will continue to follow for all discharge planning needs.
Plan; home with Hannah DUNCAN
Hannah Fax: [phone]
[2024-12-16] MEDS: LASIX PO (16:47)
[2024-12-16 18:54] LABS: Blood Urea Nitrogen 23 mg/dl (7-17); Calcium 8.9 mg/dl (8.4-10.2); Carbon Dioxide 28 mmol/L (22-30); Chloride 107 mmol/L (98-107); Estimated Creatinine Clearance 54 ml/min; Glucose 171 mg/dl (70-99); Magnesium 2.1 mg/dl (1.6-2.3); Sodium 140 mmol/L (135-145); eGFR > 60.00
[2024-12-16] MEDS: NON-FORMULARY ITEM 1 INH INH (21:06)
[2024-12-16] MEDS: XANAX 0.5 MG PO (22:01)
[2024-12-16] MEDS: TYLENOL 650 MG PO (22:01)
[2024-12-16] MEDS: DALIRESP 500 MCG PO (22:01)
[2024-12-16] MEDS: TESSALON PERLES 200 MG PO (22:01)
[2024-12-16] MEDS: CYMBALTA DELAYED RELEASE 60 MG PO (22:01)
[2024-12-16] MEDS: MELATONIN 5 MG PO (22:01)
[2024-12-16] MEDS: NEURONTIN 300 MG PO (22:01)
[2024-12-16] MEDS: SINGULAIR 10 MG PO (22:02)
[2024-12-16] MEDS: COLACE 100 MG PO (22:02)
[2024-12-17] VITALS (7 sets, daily range): BP systolic 118–154; BP diastolic 70–89; BMI 21.6
--- NOTE | 2024-12-17 00:07 | W.PN.UPDATE ---
Update Note
Progress Note Update
pt requesting repeat BNP. will order for am
--- NOTE | 2024-12-17 03:36 | PTCARENOTE ---
Addendum entered by Giana Casas RN 12/17/24 06:17:
Labs resulted. Troponin 0.012--no repeat troponin. BNP 517. One time doses of xanax 0.5 mg, tramadol 50 mg, and tylenol administered. PRN atrovent ordered and administered. Patient no longer complaining of pain and is resting comfortably in bed.
Original Note:
patient complaining of chest pain 04/15 stating that it starts in her ribcage and spans into her chest and throat. Patient states it feels like somebody is grabbing her throat and squeezing her heart. provider notified. EKG obtained, reading NSR. BP
154/89, HR 66, SpO2 98% on 3 L NC. Troponins and AM labs drawn. Awaiting results.
[2024-12-17 03:47] LABS: Hematocrit 31.4 % (37.0-47.0); Hemoglobin 10.5 g/dL (12.0-16.0); Mean Corp Hgb Conc. 33.4 g/dL (33.0-37.0); Mean Corpuscular Hgb 31.2 pg (27.0-31.0); Mean Corpuscular Volume 93.2 fL (81.0-99.0); Mean Platelet Volume 9.4 fL (7.4-10.4); Platelet Count 246 10^3/uL (130-400); Red Blood Cell Count 3.37 10^6/uL (4.20-5.40); Red Cell Dist. Width 14.5 % (11.5-14.5); White Blood Cell Count 9.2 10^3/uL (4.8-10.8)
[2024-12-17] MEDS: TYLENOL 1000 MG PO (03:56)
[2024-12-17] MEDS: ULTRAM 50 MG PO (03:56)
[2024-12-17] MEDS: XANAX 0.5 MG PO ×2 (03:56→21:09)
[2024-12-17 04:12] LABS: Blood Urea Nitrogen 27 mg/dl (7-17); Calcium 9.1 mg/dl (8.4-10.2); Carbon Dioxide 29 mmol/L (22-30); Chloride 107 mmol/L (98-107); Estimated Creatinine Clearance 48 ml/min; Glucose 129 mg/dl (70-99); Magnesium 2.2 mg/dl (1.6-2.3); Potassium 3.9 mmol/L (3.5-5.1); Sodium 140 mmol/L (135-145); eGFR > 60.00
[2024-12-17 04:16] LABS: NT-proBNP 517 pg/ml
[2024-12-17 04:21] LABS: Troponin I < 0.012 ng/ml
--- NOTE | 2024-12-17 05:09 | W.PN.UPDATE ---
Update Note
Progress Note Update
0330 pt c/o chest pain. Labs ordered Trop, cbc, bnp , bmp. EKG NSR.
PT with multiple allergies- xanax tylenol and tramadol ordered.
0430 PT labs look much improved from previous. BN 517 (from 1772), Trop normal. HH 10.5 (from 8.9) wbc 9.2 (from 11.2).
On my eval pt appeared to be sleeping and did not awaken.
[2024-12-17] MEDS: ATROVENT NEBULES 0.5 MG INH ×3 (05:22→19:51)
[2024-12-17] MEDS: SYNTHROID 112 MCG PO (05:43)
[2024-12-17] MEDS: NEURONTIN 600 MG PO ×3 (05:43→21:09)
[2024-12-17] MEDS: NON-FORMULARY ITEM 1 UNIT INH ×2 (07:29→19:52)
[2024-12-17] MEDS: NON-FORMULARY ITEM 2 UNIT INH ×2 (07:29→19:53)
[2024-12-17] MEDS: ATROVENT NEBULES INH (07:31)
[2024-12-17] MEDS: NON-FORMULARY ITEM 1 SPRAY NASAL (09:06)
[2024-12-17] MEDS: CELEBREX 100 MG PO ×2 (09:07→21:03)
[2024-12-17] MEDS: ProAmatine 10 MG PO ×3 (09:13→17:59)
[2024-12-17] MEDS: OSCAL 500 + D 500 MG PO (09:14)
[2024-12-17] MEDS: VISBIOME 2 CAP PO (09:14)
[2024-12-17] MEDS: CLARITIN 10 MG PO (09:14)
[2024-12-17] MEDS: PROTONIX 40 MG PO (09:14)
[2024-12-17] MEDS: FOLVITE 1 MG PO (09:15)
[2024-12-17] MEDS: DELTASONE 50 MG PO (09:15)
[2024-12-17] MEDS: FLOMAX 0.4 MG PO (09:15)
--- NOTE | 2024-12-17 09:15 | W.PN.PUL3 ---
Today's Communication / Plan
-
Chest pain w/u overnight is negative, unclear cause
Remains on abx for strep PNA
Prednisone taper, continued
Patient has asked for 'Xanax for sleep' will defer to team (do not seem on home med list)
OP Pulm FU recommended
Discharge planning in AM--she is in agreement
Assessment
-
Patient is a 74 year old F w/ extensive complicated respiratory HX which she follows closely with pulmonology at [place], known to Dr Neely, recently treated as an outpatient for Pseudomonas pneumonia with Levaquin, presents to the emergency
department for evaluation of 2 days of generalized weakness and fatigue associated with a dry nonproductive cough and shortness of breath. She notes that following 14 day course of abx for pseudomonas she did feel improved symptoms, but 2 weeks
later she had noticed her symptoms recur. CXR showing no acute changes/path.
She feels her cough/sputum are worsening. Productive yellow phlegm. We are consulted for eval.
Strep PNA
Recent Pseudomonas PNA s/p 14-day course of LVQ
Generalized weakness/fatigue
Mild leukocytosis
Chronic hypercarbic respiratory failure, VBG 08/24/23 7.39/60
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
Paroxysmal Atrial Fibrillation s/p Ablation
Asthma
Chronic Hypoxic Respiratory Failure, uses POC with ambulation
Monoclonal B-Cell Lymphocytosis
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
Maintained on Doxy BID by [place]
Bronchiectasis
Hypothyroidism
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
Cardiac Ablation
Hysterectomy
Microdiscectomy
Right Hip Replacement
Cataract
Plan
No significant hypoxemia noted on arrival, she uses a POC at baseline with exertion
Can wean to off on RA if sats >90%
There is known prior history of lung disease including NTM, bronchiectasis, CVID, Asthma and now with new strep
Recently treated with abx as OP for pseudomonas
She is only maintained on Doxy BID as suppressive abx for NTM
Reassurance she does not have recurrent pseudomonas
ID consult obtained due to multiple issues with drug allergies in past
Complete abx per team
She is placed on IV steroids which she has many side effects from
Will transition to PO taper--she prefers 50mg dose, will change with plan for taper
She declined albuterol due to Afib, will add Atrovent nebs which she can use wtih her home levalbuterol
I reviewed atrovent use again today, she is not sure if this is helpful
CXR/CT obtained indicating no significant findings on my review compared to prior
Other imaging reviewed
ECHO results in past reviewed, stable function
She notes new findings of elevated cardiac markers, proBNP 1770
Repeat studies remain unchanged
Diuresis resumed
Will need outpatient pulmonary evaluation in our office including PFTs and 6MWT
Reviewed with patient
D/c planning per team in AM--she was agreeable to go
Diagnostic Data
CXR 12/13/24-There is airspace disease in the right lower lobe which suggests pneumonia.
There is also airspace disease in the left lower lobe which is likely atelectasis/scarring as this is improved compared to the prior study
CT CHEST 12/16/23- 1. Micronodular and irregular opacities in the anterior right upper lobe and left upper lobe as above which are suggestive of bronchiolitis. This could be seen in association with mycobacterial infection. The left upper lobe
more severely affected as compared with the right.
2. Interval significant improvement of left basilar atelectasis, with residual partial atelectasis of posterior and medial basal segments of the left lower lobe. Decreased left hemithorax volume loss.
3. Significantly decreased pericardial effusion as compared with prior examination. Unchanged mild cardiomegaly.
4. Nonobstructive left nephrolithiasis.
ECHO 12/16/24- Normal left ventricular size, wall thickness and systolic function. No regional wall motion abnormalities are seen. LV ejection fraction is 55-60% by Aranda's method of discs. Normal diastolic function. Mitral valve opens normally.
Thickened calcified mitral valve leaflets. Mitral annular calcification. Trace mitral regurgitation. Trileaflet, sclerotic aortic valve. Thickened aortic valve with normal leaflet excursion. Trace aortic regurgitation is seen. Tricuspid valve
opens normally. Mild tricuspid regurgitation. Estimated pulmonary artery pressure of 43 mmHg, assuming a right atrial pressure of 20 mmHg. Since echo August 2023, there is no significant change.
08/20/23- Normal biventricular size and systolic function without regional wall motion abnormality. No significant valvular disease. No prior study available for comparison.
Pulmonary function testing (� 03/16/2024 ): FEV1: post bronchodilator 1.68 L-72%. FVC:1.99 L at 65%. FEV1/FVC ratio:84%. T.39 L-66%. RV:62% RV/TLC ratio:39%. DLCO: 10.16-47%. DLCO/VA: 83%
Reports and relevant images were personally reviewed.
-----
Total time spent on this consultation _51__ minutes which includes review of history, physical exam, medications, llaboratory data, personal review of imaging, extensive review of outpatient records, and discussions with care team.
Subjective Data
-
Date of Service:
Date of Service: December 17, 2024
Chief Complaint: Pulmonary Follow Up
Subjective:
Chest pain noted overnight, w/u negative
Remains on o2, but has POC at home
Cough ongoing but improving
Objective Data
Data Reviewed
Vital Signs / I&O / Oxygen:
Vital Signs
Temp Pulse Resp BP Pulse Ox
97.2 F 65 16 150/89 99
12/17/24 07:05 12/17/24 07:05 12/17/24 07:05 12/17/24 07:05 12/17/24 07:05
Intake and Output
12/16/24 12/17/24 12/18/24
06:59 06:59 06:59
Intake Total 0 / 0 0 / 2119 100 / 100
Output Total 420 / 420 2000 / 2000 1200 / 1200
Balance -420 / -420 120 / 120 -1100 / -1100
SaO2 99
Nasal Cannula flow liters per 3
minute
Physical Exam
General: Comfortable and Other (NAD)
HEENT: Normocephalic, Anicteric and Moist Mucous Membranes
Cardiovascular: S1-S2 and Regular Rhythm
Respiratory: Clear and Non-Labored Respirations
GI: Soft, Non Distended and Non Tender
Neurology: Awake, Alert, Oriented and No Motor Deficits
Skin: Warm, Dry and Good Color
Labs/Micro/Reports
Lab Data
12/17/24 03:33
12/17/24 03:33
Microbiology
12/13/24 22:28 Sputum Respiratory Culture - Preliminary
Streptococcus pneumoniae
12/13/24 22:28 Sputum Gram Stain - Preliminary
12/14/24 15:55 Urine Legionella Urinary Antigen - Final
Negative for Legionella pneumophila Serogroup 1 antigen.
A negative result does not rule out the possiblity of
Legionella infection due to other serogroups or species of
Legionella. Clinical correlation is recommended.
12/14/24 15:55 Urine Streptococcus pneumoniae Antigen (M - Final
Negative for Streptococcus pneumoniae antigen.
A negative result does not exclude infection with
Streptococcus pneumoniae. Clinical correlation is
recommended.
[2024-12-17] MEDS: NON-FORMULARY ITEM 2.5 MG PO ×2 (09:16→21:04)
[2024-12-17] MEDS: KCL 20 MEQ PO ×2 (09:16→21:05)
[2024-12-17] MEDS: NON-FORMULARY ITEM 1 INH INH (09:17)
[2024-12-17] MEDS: LASIX 40 MG PO (09:17)
[2024-12-17] MEDS: CYMBALTA DELAYED RELEASE 30 MG PO (09:19)
[2024-12-17] MEDS: RESTASIS 0.05% OPHTHALMIC EMULSION 1 DROPS BOTH EYES ×2 (09:19→21:05)
[2024-12-17] MEDS: TYLENOL 650 MG PO ×3 (09:28→23:28)
[2024-12-17] MEDS: TESSALON PERLES 200 MG PO ×3 (09:28→23:28)
--- NOTE | 2024-12-17 09:39 | W.PN.ID1 ---
Date of Service
Date of Service: December 17, 2024
Today's Communication
-Continue ceftriaxone 2g IV q24 (d4 abx)
- At time of discharge, transition to cefuroxime 500mg po bid through 12/27/24.
Assessment / Plan
# Pneumococcal RLL PNA
# Recent Pseudomonas (pansensitive) PNA 11/15/24 s/p 14d levofloxacin
# COPD/asthma/bronchiectasis
# Pulmonary RODRIGUEZ, not on tx due to asymptomatic
# Hypogammaglobulinemia on IVIG
# CLL
- urine Legionella Ag and Strep pneumo Ag neg (not sensitive tests).
-sputum culture Streptococcus pneumoniae
-Continue ceftriaxone 2g IV q24 (d4 abx)
- At time of discharge, transition to cefuroxime 500mg po bid through 12/27/24. (Pt states hx GI upset from amoxicillin)
- Give PCV20 vacccine x 1 at time of discharge.
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
COPD/asthma
Bronchiectasis
Hypogammaglobulinemia on IVIG
Chronic lymphocytic leukemia of B-cell type
P A-fib
Hypothyroidism
Recurrent sinusitis and pneumonia
Pulmonary RODRIGUEZ (observation)
Postural orthostatic tachycardia syndrome
Anal HSV
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
Chief Complaint
-: Pneumonia
Subjective / Review of Systems
Had respiratory distress last night.
Vital Signs / Physical Exam
Vital Signs
Vital Signs
Temp Pulse Resp BP Pulse Ox
97.2 F 65 16 142/78 99
12/17/24 07:05 12/17/24 09:17 12/17/24 07:05 12/17/24 09:17 12/17/24 07:05
Physical Exam
Constitutional: Non-toxic
Pulmonary: Rales (r base crackles)
Gastrointestinal: Soft, Non Tender and Normal Bowel Sounds
Extremities: Negative Edema
Neurological: AO x 3
Objective Data
Lab Data
Lab Results
12/17/24 03:33
12/17/24 03:33
Estimated Creat Clear 48 ml/min 12/17/24 03:33
Total Bilirubin 0.6 mg/dl (0.2-1.3) 12/14/24 04:27
AST 16 U/L (14-36) 12/14/24 04:27
ALT 10 U/L (0-35) 12/14/24 04:27
Alkaline Phosphatase 48 U/L (38-126) 12/14/24 04:27
Most recent labs reviewed.
Micro Results:
12/13/24 22:28 Respiratory Culture - Preliminary
Sputum Streptococcus pneumoniae
Gram Stain - Preliminary
12/14/24 15:55 Legionella Urinary Antigen - Final
Urine Negative for Legionella pneumophila Serogroup 1 antigen.
A negative result does not rule out the possiblity of
Legionella infection due to other serogroups or species of
Legionella. Clinical correlation is recommended.
12/14/24 15:55 Streptococcus pneumoniae Antigen (M - Final
Urine Negative for Streptococcus pneumoniae antigen.
A negative result does not exclude infection with
Streptococcus pneumoniae. Clinical correlation is
recommended.
12/13/24 CXR: There is airspace disease in the right lower lobe which suggests pneumonia. There is also airspace disease in the left lower lobe which is likely atelectasis/scarring as this is improved compared to the prior study
Care Review
Plan reviewed with: Physician (Dr. Nicolasa Durand and team)
[2024-12-17] MEDS: NON-FORMULARY ITEM 1 INH NASAL (10:54)
[2024-12-17] MEDS: PREVNAR 20 0.5 ML IM (11:04)
--- NOTE | 2024-12-17 12:09 | CM ---
CM reviewed chart, patient seen bedside, for discharge tomorrow. Patient confirms her family will transport home, she has updated her family members and one of her children will transport her home, family will provide O2 upon discharge. IMM verbally
reviewed, signed, placed in chart, patient denies copy. Patient inquiring about buying additional tubing for O2, requesting list of DME company, CM will provide. Update to [employer] on discharge for tomorrow. CM will continue to follow for all
discharge planning needs.
Plan; home tomorrow, family to transport, Hannah DUNCAN WILLIAM
[facility]
--- NOTE | 2024-12-17 13:27 | W.PN.HOSP.TC ---
Today's Communication/Plan
-
Patient dischargeable today although no family can transport
Discharge postponed for tomorrow morning
Assessment / Plan
Assessment / Plan
1. Right lower lobe pneumonia Streptococcus pneumonia-reported Pseudomonas growth on sputum culture on outpatient basis. Patient has recent history of Pseudomonas pneumonia which was treated with course of Levaquin 3 weeks back as well. Patient
have some associated hypoxia/leukocytosis. Afebrile. Chest x-ray reviewed and no overt consolidation. Patient respiratory culture has been growing Streptococcus pneumonia. ID has recommended patient to be maintained on Rocephin while in
hospital, to be discharged on amoxicillin --which patient did not want, ID adjusted recommendation to be maintained patient on cefuroxime through 12/27
2. history of A-fib b -patient have history of ablation x 2 and worried about reoccurrence. Patient requesting Xopenex instead of albuterol which is not available in the hospital. Discussed with pharmacy as well . Patient also wanting to be
started on Ivabradine , which is nonformulary and there is no one who can bring it in from family perspective . Cardiology consulted for further help.
3. Hemoptysis -minimal and likely with the significant coughing episodes. Patient questioning bronchoscopy need which I personally do not see an indication, pulmonology to evaluate as well.
4. Acute hypoxic respite insufficiency/COPD flareup-may have possible flareup of COPD and patient started on IV Decadron, which patient was hesitant to take due to concern of being pushing her back to in A-fib. Switch to Solu-Medrol IV 40 mg every
12 hours for now. Will try to wean off oxygen as possible. As mentioned above patient hesitant to take albuterol, we do not have Xopenex in the formulary and patient not able to provide her home Xopenex supply.
Steroid weaning early would be appropriate as well as patient is immunocompromised already with immunoglobin deficiency and have active pseudomonal infection being treated.
5. History of RODRIGUEZ -patient have recent bronchoscopy and have fungus growth also RODRIGUEZ in the past. Currently being managed at [facility]
6. History of monoclonal B-cell lymphocytosis/hypo-gammaglobulinemia -managed by [facility], patient intolerant to IgG infusion?
7. Nonsustained VT -patient with small episodes of nonsustained VT. Continue monitoring on telemetry. BMP check in morning, added magnesium check.
8. Acute on chronic normocytic anemia -likely dilutional component. Hbg back up again to 10.5
9. Chest pain - presumed pleuritic in nature. torp/ekg neg.
DVT PPX - lovenox
DNR
Anticipated Discharge: Within 24 hours
Subjective/Interval History
-
Date of Service: December 17, 2024
episode of chest pain overnight
remains on o2
continues to have cough, remains shortness breath
Objective Data
-
Labs:
Laboratory Results
12/17/24
03:33
WBC 9.2
Hgb 10.5 L
Hct 31.4 L
Plt Count 246
Sodium 140
Potassium 3.9
Chloride 107
Carbon Dioxide 29
BUN 27 H
Creatinine 0.9
Glucose 129 H
Calcium 9.1
Vital Signs:
Vital Signs
Temp Pulse Resp BP Pulse Ox
98.2 F 79 16 136/77 97
12/17/24 11:15 12/17/24 11:15 12/17/24 11:15 12/17/24 11:15 12/17/24 11:15
I&O
12/16/24 12/17/24 12/18/24
06:59 06:59 06:59
Intake Total 0 / 0 0 / 2120 100 / 100
Output Total 420 / 420 2000 / 2000 1200 / 1200
Balance -420 / -420 120 / 120 -1100 / -1100
Review of Systems
-
Respiratory: Reports No Symptoms
Cardiac: Reports No Symptoms
Abdomen/GI: Reports No Symptoms
Physical Exam
-
HEENT: Oxygen
Respiratory: Rhonchi and Accessory Resp Muscle Use
Cardiac: Regular Rhythm and S1/S2
GI: Soft, Nontender and Nondistended
Neuro: Awake, Alert and Oriented
Psych: Agitated
[2024-12-17] MEDS: STERILE WATER FOR INJECTION 20 ML IV (13:34)
[2024-12-17] MEDS: ROCEPHIN 2000 MG IV (13:50)
[2024-12-17] MEDS: LASIX 20 MG PO (14:51)
--- NOTE | 2024-12-17 14:59 | W.PN.CARDCBS ---
Addendum entered and electronically signed by Pedro Braxton MD 12/17/24 16:17:
I saw and examined the patient.
The INSULATION ENGINEMAN or PA's note was reviewed and I agree with the note.
Comment: General: Well developed, well nourished in NAD.
Neck: Supple, no JVD, HJR, carotids +2 B/L, no bruits bilaterally.
Heart: Non displaced PMI, RRR, no murmurs, No S3, S4, no rubs.
Lungs: Scattered rhonchi
Extremities: No clubbing, cyanosis or edema bilaterally.
Neuro: Grossly nonfocal, awake, alert and oriented x3.
Stable cardiology status for discharge. No further VT. Will sign off, call with questions. Follow-up as been arranged. She will be seen in our office prior to clearance for hip surgery.
Original Note:
Today's Communication / Plan
-
Continue PO lasix 40mg in AM, 20mg in PM
Continue corlanor
BP stable on OP dose of midodrine 10mg TID
Follow up arranged
Impression / Plan
-
PCP: Dr. Juan Kamara
Cardiology: Dr. Osman
Pulm: Dr. Hillman at [place] and Dr. Neely locally
Impression:
Admitted with Pseudomonas PNA 12/13/24
Acute on chronic orthostasis
Chronic orthostasis
Autonomic dysfunction
Symptomatic inappropriate sinus tachycardia
Monoclonal B-cell lymphocytosis
Immunoglobulin deficiency per patient report
Paroxysmal Afib/tach
Hypothyroidism
Possible acute HFpEF/volume overload
Echo 08/20/2023: Normal biventricular function size and systolic function without regional WMA, no significant valve disease
Echo 12/15/2024: EF 55 to 60%, normal diastolic function, trace MR, trace aortic regurgitation, mild TR with PAP 43 mmHg, compared to echo 08/2023 there is no significant change
Plan:
-Presented with increased SOB, admitted with pneumonia and possible acute HFpEF.
-Given IV lasix x2 this admission without significant improvement.
-Weight overall unchanged at 126 lbs. Creat stable at 0.9. ProBNP imropved to 517 this AM.
-Will continue PO lasix 40mg in AM, 20mg in PM.
-Echo 12/15 noted preserved EF with no significant valvular disease.
-Medial therapy has been limited historically by symptomatic orthostasis. Continue midodrine 10 mg TID.
-Continue corlanor 2.5mg BID.
-Runs of ATach w/ aberrancy vs NSVT noted on telemetry. Linq monitor in place.
-Noted episode of chest pain overnight, however troponin negative and EKG stable without any acute ischemic changes.
-No recurrent chest pain noted.
-Follow up has been arranged w/ primary optometrist/practice owner.
HPI: Patient came to [facility] ER on Friday with increased SOB despite recent pulmonary treatment as an outpatient and was admitted with PNA, cardiology is now consulted at the request of patient for symptoms of dizziness, inability to get her usual
POTS medication and at her request. Patient previously followed with the other cardiology group, but during her admission 08/2023 she requested to change groups and now follows with Dr. Osman. Patient also follows locally with pulmonology,
[place], and then also follows with pulmonology at [place] for her history of monoclonal B-cell lymphocytosis for which she takes chronic IVIG that is managed by Dr. Reno locally and also for her bronchiectasis. Patient says that back in November she had
a sputum culture with her network developer at [place]. Around that time she had been empirically started on Augmentin and once the culture came back Pseudomonas the Augmentin was changed to Levaquin. Patient completed a 2-week course of Levaquin with
minimal improvement and came to the emergency room on Friday with ongoing SOB. Patient is now being followed by ID and IV antibiotics ordered. From a cardiac perspective, received request for consultation for symptoms of dizziness. Patient has a
history of atrial arrhythmia and patient had previous ablation at [facility] in 2007 and 2016. Patient has been intolerant of BB and CCB since then, but most recently has been tolerating a regimen of Corlanor 2.5 mg twice daily to help with orthostatic
hypotension and symptomatic inappropriate sinus tachycardia.
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
Subjective
Date of Service: December 17, 2024
CP overnight, however thankfully no further CP today.
Objective
Labs:
12/17/24 03:33
12/17/24 03:33
Labs
Hgb 10.5 g/dL (12.0-16.0) L 12/17/24 03:33
Hct 31.4 % (37.0-47.0) L 12/17/24 03:33
Plt Count 246 10^3/uL (130-400) 12/17/24 03:33
Sodium 140 mmol/L (135-145) 12/17/24 03:33
Potassium 3.9 mmol/L (3.5-5.1) 12/17/24 03:33
BUN 27 mg/dl (7-17) H 12/17/24 03:33
Creatinine 0.9 mg/dL (0.6-1.0) 12/17/24 03:33
Glucose 129 mg/dl (70-99) H 12/17/24 03:33
Troponins
12/17/24
03:33
Troponin I < 0.012
Vital Signs and I&O:
Vital Signs
Temp Pulse Resp BP Pulse Ox
98.2 F 89 14 128/78 97
12/17/24 11:15 12/17/24 14:51 12/17/24 14:43 12/17/24 14:51 12/17/24 11:15
Vital Signs
Temp Pulse Resp BP Pulse Ox
98.2 F 89 14 128/78 97
12/17/24 11:15 12/17/24 14:51 12/17/24 14:43 12/17/24 14:51 12/17/24 11:15
Intake & Output
12/15/24 12/16/24 12/17/24 12/18/24
06:59 06:59 06:59 06:59
Intake Total 420 / 420 0 / 0 2119 / 2119 100 / 100
Output Total 420 / 420 1999 / 1999 1200 / 1200
Balance 420 / 420 -420 / -420 120 / 120 -1100 / -1100
Physical Exam
Physical Exam
GEN: No distress, awake, alert, oriented x3
HEENT: supple, anicteric, mmm
LUNGS: CTA b/l, no wheezes/rales
CV: Reg, S1/S2, no murmur
EXT: No clubbing, cyanosis, trace edema
NEURO: Gross non-focal
SKIN: Warm, dry, no rash
[2024-12-17 17:56] LABS: Troponin I < 0.012 ng/ml
[2024-12-17] MEDS: CYMBALTA DELAYED RELEASE 60 MG PO (21:06)
[2024-12-17] MEDS: DALIRESP 500 MCG PO (21:06)
[2024-12-17] MEDS: COLACE 100 MG PO (21:06)
[2024-12-17] MEDS: SINGULAIR 10 MG PO (21:07)
[2024-12-17] MEDS: MELATONIN 5 MG PO (21:07)
[2024-12-17] MEDS: NEURONTIN 300 MG PO (21:07)
[2024-12-17] MEDS: NON-FORMULARY ITEM 2 INH NASAL (21:19)
[2024-12-18 05:15] LABS: Hemoglobin 10.2 g/dL (12.0-16.0); Mean Corp Hgb Conc. 32.9 g/dL (33.0-37.0); Mean Corpuscular Volume 91.2 fL (81.0-99.0); Mean Platelet Volume 9.6 fL (7.4-10.4); Platelet Count 277 10^3/uL (130-400); White Blood Cell Count 9.5 10^3/uL (4.8-10.8)
[2024-12-18] MEDS: SYNTHROID 125 MCG PO (05:41)
[2024-12-18] MEDS: NEURONTIN 600 MG PO (05:42)
[2024-12-18 05:45] LABS: Blood Urea Nitrogen 19 mg/dl (7-17); Carbon Dioxide 28 mmol/L (22-30); Chloride 108 mmol/L (98-107); Estimated Creatinine Clearance 62 ml/min; Glucose 129 mg/dl (70-99); Potassium 4.3 mmol/L (3.5-5.1); Sodium 139 mmol/L (135-145); eGFR > 60.00
[2024-12-18 06:00] VITALS: BMI 21.9
[2024-12-18] MEDS: ATROVENT NEBULES 0.5 MG INH (07:37)
[2024-12-18] MEDS: NON-FORMULARY ITEM 1 UNIT INH (07:38)
[2024-12-18] MEDS: NON-FORMULARY ITEM 2 UNIT INH (07:39)
[2024-12-18 07:46] VITALS: BP 146/87
[2024-12-18] MEDS: NON-FORMULARY ITEM 1 SPRAY NASAL (08:25)
[2024-12-18] MEDS: NON-FORMULARY ITEM 2.5 MG PO (08:25)
[2024-12-18] MEDS: CLARITIN 10 MG PO (08:26)
[2024-12-18] MEDS: FLOMAX 0.4 MG PO (08:26)
[2024-12-18] MEDS: FOLVITE 1 MG PO (08:26)
[2024-12-18] MEDS: CELEBREX 100 MG PO (08:26)
[2024-12-18] MEDS: OSCAL 500 + D 500 MG PO (08:26)
[2024-12-18] MEDS: CYMBALTA DELAYED RELEASE 30 MG PO (08:27)
[2024-12-18] MEDS: DELTASONE 50 MG PO (08:27)
[2024-12-18] MEDS: RESTASIS 0.05% OPHTHALMIC EMULSION 1 DROPS BOTH EYES (08:27)
[2024-12-18] MEDS: PROTONIX 40 MG PO (08:27)
[2024-12-18] MEDS: VISBIOME 2 CAP PO (08:27)
[2024-12-18] MEDS: KCL 20 MEQ PO (08:27)
[2024-12-18] MEDS: NON-FORMULARY ITEM 1 INH NASAL (08:28)
[2024-12-18] MEDS: ProAmatine 10 MG PO (08:31)
[2024-12-18] MEDS: LASIX 40 MG PO (08:31)
[2024-12-18] MEDS: TESSALON PERLES 200 MG PO (08:44)
[2024-12-18] MEDS: TYLENOL 650 MG PO (08:45)
[2024-12-18 11:55] VITALS: BP 135/87
--- NOTE | 2024-12-18 12:24 | W.PN.ID1 ---
Date of Service
Date of Service: December 18, 2024
Today's Communication
Continue current course of antibiotics.
Assessment / Plan
# Pneumococcal RLL PNA
# Recent Pseudomonas (pansensitive) PNA 11/15/24 s/p 14d levofloxacin
# COPD/asthma/bronchiectasis
# Pulmonary RODRIGUEZ, not on tx due to asymptomatic
# Hypogammaglobulinemia on IVIG
# CLL
- urine Legionella Ag and Strep pneumo Ag neg (not sensitive tests).
- Sputum culture with Streptococcus pneumoniae
- Patient for D/C today. Transition to cefuroxime 500mg po bid through 12/27/24. (Pt states hx GI upset from amoxicillin)
- For PCV20 vaccine x 1 at time of discharge.
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
COPD/asthma
Bronchiectasis
Hypogammaglobulinemia on IVIG
Chronic lymphocytic leukemia of B-cell type
P A-fib
Hypothyroidism
Recurrent sinusitis and pneumonia
Pulmonary RODRIGUEZ (observation)
Postural orthostatic tachycardia syndrome
Anal HSV
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
Chief Complaint
-: Pneumonia
Subjective / Review of Systems
Review of Systems: No Fever, No Chills and Cough
Vital Signs / Physical Exam
Vital Signs
Vital Signs
Temp Pulse Resp BP Pulse Ox
98 F 82 16 135/87 99
12/18/24 11:55 12/18/24 11:55 12/18/24 11:55 12/18/24 11:55 12/18/24 11:55
Physical Exam
Constitutional: No Acute Distress, Comfortable and Non-toxic
Pulmonary: Non Labored
Gastrointestinal: Non Distended
Neurological: Awake and Alert
Psychological: Calm
Objective Data
Lab Data
Lab Results
12/18/24 04:56
12/18/24 04:56
Estimated Creat Clear 62 ml/min 12/18/24 04:56
Total Bilirubin 0.6 mg/dl (0.2-1.3) 12/14/24 04:27
AST 16 U/L (14-36) 12/14/24 04:27
ALT 10 U/L (0-35) 12/14/24 04:27
Alkaline Phosphatase 48 U/L (38-126) 12/14/24 04:27
Most recent labs reviewed.
Micro Results:
12/13/24 22:28 Respiratory Culture - Final
Sputum Streptococcus pneumoniae
Gram Stain - Final
12/14/24 15:55 Legionella Urinary Antigen - Final
Urine Negative for Legionella pneumophila Serogroup 1 antigen.
A negative result does not rule out the possiblity of
Legionella infection due to other serogroups or species of
Legionella. Clinical correlation is recommended.
12/14/24 15:55 Streptococcus pneumoniae Antigen (M - Final
Urine Negative for Streptococcus pneumoniae antigen.
A negative result does not exclude infection with
Streptococcus pneumoniae. Clinical correlation is
recommended.
12/13/24 CXR: There is airspace disease in the right lower lobe which suggests pneumonia. There is also airspace disease in the left lower lobe which is likely atelectasis/scarring as this is improved compared to the prior study
--- NOTE | 2024-12-18 15:17 | W.PN.HOSP.TC ---
Today's Communication/Plan
-
d/c home
Assessment / Plan
Assessment / Plan
1. Right lower lobe pneumonia Streptococcus pneumonia-reported Pseudomonas growth on sputum culture on outpatient basis. Patient has recent history of Pseudomonas pneumonia which was treated with course of Levaquin 3 weeks back as well. Patient
have some associated hypoxia/leukocytosis. Afebrile. Chest x-ray reviewed and no overt consolidation. Patient respiratory culture has been growing Streptococcus pneumonia. ID has recommended patient to be maintained on Rocephin while in
hospital, to be discharged on amoxicillin --which patient did not want, ID adjusted recommendation to be maintained patient on cefuroxime through 12/27
2. history of A-fib b -patient have history of ablation x 2 and worried about reoccurrence. Patient requesting Xopenex instead of albuterol which is not available in the hospital. Discussed with pharmacy as well . Patient also wanting to be
started on Ivabradine , which is nonformulary and there is no one who can bring it in from family perspective . Cardiology consulted for further help.
3. Hemoptysis -minimal and likely with the significant coughing episodes. resolved.
4. Acute hypoxic respite insufficiency/COPD flareup- Patient steroids were adjusted to Solu-Medrol based on patient concern, this later changed to prednisone and patient being discharged on tapering course of prednisone. Patient already have home
oxygen improvement.
5. History of RODRIGUEZ -patient have recent bronchoscopy and have fungus growth also RODRIGUEZ in the past. Currently being managed at [facility]
6. History of monoclonal B-cell lymphocytosis/hypo-gammaglobulinemia -managed by [facility], patient intolerant to IgG infusion?
7. Nonsustained VT -patient with small episodes of nonsustained VT. Continue monitoring on telemetry. BMP check in morning, added magnesium check.
8. Acute on chronic normocytic anemia -likely dilutional component. Hbg back up again to 10.5
9. Chest pain - presumed pleuritic in nature. torp/ekg neg.
DVT PPX - lovenox
DNR
More than 30 minutes spent in discharge including
Final examination of the patient
Summarizing hospital stay
Instructions for continuing care to all relevant caregivers
Preparation of discharge records, prescriptions, and referral forms
Total time spent (in minutes): 38 mins
Anticipated Discharge: Today
Subjective/Interval History
-
Date of Service: December 18, 2024
No further episode of chest pain
Shortness of breath better
No other issues reported
Objective Data
-
Labs:
Laboratory Results
12/18/24
04:56
WBC 9.5
Hgb 10.2 L
Hct 31.0 L
Plt Count 277
Sodium 139
Potassium 4.3
Chloride 108 H
Carbon Dioxide 28
BUN 19 H
Creatinine 0.7
Glucose 129 H
Calcium 9.0
Vital Signs:
Vital Signs
Temp Pulse Resp BP Pulse Ox
98 F 82 16 135/87 99
12/18/24 11:55 12/18/24 11:55 12/18/24 11:55 12/18/24 11:55 12/18/24 11:55
I&O
12/17/24 12/18/24 12/19/24
06:59 06:59 06:59
Intake Total 0 / 0 1300 / 1300
Output Total 1999 / 1999 1200 / 1200
Balance 120 / 120 100 / 100
Review of Systems
-
Respiratory: Reports No Symptoms
Cardiac: Reports No Symptoms
Abdomen/GI: Reports No Symptoms
Physical Exam
-
HEENT: Oxygen
Respiratory: Rhonchi and Accessory Resp Muscle Use
Cardiac: Regular Rhythm and S1/S2
GI: Soft, Nontender and Nondistended
Neuro: Awake, Alert and Oriented
Psych: Agitated
--- NOTE | 2024-12-18 16:21 | W.DCSUMMARY ---
Discharge Summary
Discharge Data
Date of Admission: 12/13/24
Date of Discharge: 12/18/24
-
Pending Results: No
Hospital Course
Discharging Physician : Dr Miles Durand
Disposition : To home
Primary care physician : Dr Jj Kamara
Principal Discharge diagnosis :
Right lower lobe pneumonia from Streptococcus pneumoniae
Acute hypoxic respiratory insufficiency
Chronic obstructive pulmonary disease flareup
Minimal hemoptysis
Nonsustained ventricular tachycardia
Episodes of chest pain
Chronic Discharge diagnosis :
History of atrial fibrillation post ablation
History of Mycobacterium avium infection
Chronic normocytic anemia
Recent Pseudomonas pneumonia
History of bronchiectasis
Hypothyroidism
History of hysterectomy
History of right hip replacement
Hospital Course :
74-year-old female with above-mentioned past medical history came to ER after patient having productive cough dyspnea. Patient has been diagnosed for Pseudomonas pneumonia and had finished course of Levaquin outpatient basis. There was concern of
repeat pneumonia and patient was started on IV cefepime. ID was consulted for further help as patient have a history of immunoglobin deficiency/chronic immunocompromise state. Patient respiratory culture later isolated Streptococcus pneumonia,
antibiotics were changed to Rocephin. At discharge patient was transition to oral cefuroxime with last dose on 12/27.
Patient also was diagnosed to have COPD flareup and was started on IV Decadron, pulmonology evaluated and patient adjusted to Solu-Medrol due to patient concern with Decadron. At discharge patient was given prednisone taper course. Patient was
requiring oxygen support and not completely able to be weaned off of discharge. Patient does have home oxygen equipment from previous need.
Patient have a history of A-fib and ablation and on ivabradine which patient not able to bring in. Cardiology monitored patient during the hospital stay. Patient had 2 3 episode of NSVT. Patient was also was having some chest pain episode which
was deemed to be noncardiac in nature and likely related to pulmonary issues. Post medical stabilization patient was discharged home.
Important imaging findings :
None
Procedure findings :
None
Discharge Plan
-
Patient Disposition: Home with Home Care
Discharge Diagnosis/Procedures: Acute respiratory distress syndrome
Condition: Fair
Diet: No restrictions and As tolerated
Activity: As tolerated
Additional Activity: with cane
Driving Restrictions: As prior to admission
Bathing Restrictions: OK to Shower
Instructions: Acute respiratory distress syndrome
Referrals:
Kenton Santos MD [Active, Pulmonary Medicine] - in two to four weeks
Susy Osman DO [Active, Cardiology] - 12/24/24 4:20 pm
Referral Note: You have a follow up visit with Dr. Osman at the [place] office. Please call with questions.
Juan Kamara MD [Family Provider, Internal Medicine] - in one week
Prescriptions:
New
cefuroxime axetil 500 mg tablet
500 mg PO BID Qty: 20 0RF
levalbuterol HCl 0.63 mg/3 mL solution for nebulization
0.63 mg inhalation Q6H PRN (Reason: COPD) Qty: 90 1RF
prednisone 10 mg Tablet
See Rx Instructions .ROUTE .COMPLEX Qty: 30 0RF
Rx Instructions:
Take By Mouth:
40 mg daily x3 days, 30 mg daily x3 days,
20 mg daily x3 days, 10 mg daily x3 days.
tramadol 50 mg tablet
50 mg PO Q8H PRN (Reason: pain) Qty: 14 0RF
lorazepam [Ativan] 0.5 mg tablet
0.5 mg PO BID PRN (Reason: anxiety) Qty: 6 0RF
Continued
gabapentin 600 mg tablet
600 mg PO TID
montelukast 10 mg tablet
10 mg PO HS
levothyroxine 112 mcg tablet
112 mcg PO MOWEFR@07
fexofenadine 180 mg Tablet
180 mg PO DAILY
levothyroxine 125 mcg tablet
125 mcg PO SUTUTHSA@07
azelastine 137 mcg (0.1 %) aerosol,spray
1 spray INTRANASAL DAILY
[id number] [krill oil] 705-76-24-50 mg Capsule
1 cap PO BID Qty: 0
cyanocobalamin (vitamin B-12) 1,000 mcg Tablet
500 mcg PO DAILY
ascorbic acid (vitamin C) [Vitamin C] 500 mg Tablet
500 mg PO QPM
duloxetine 30 mg Capsule,Delayed Release(Dr/Ec)
30 mg PO DAILY
levalbuterol tartrate 45 mcg/actuation Hfa Aerosol Inhaler
1 puff INHALATION R Q8HPRN PRN (Reason: sob)
calcium citrate-vitamin D3 [Citracal Regular] 250 mg-5 mcg (200 unit) Tablet
1 tab PO DAILY Qty: 0
roflumilast [Daliresp] 500 mcg Tablet
500 mcg PO HS
fluticasone furoate 200 mcg/actuation Blister With Device
2 inh INHALATION R BID
duloxetine 60 mg Capsule,Delayed Release(Dr/Ec)
60 mg PO HS Qty: 0
benzonatate 100 mg Capsule
100 mg PO TIDPRN PRN (Reason: cough) Qty: 30 0RF
pantoprazole 40 mg Tablet,Delayed Release (Dr/Ec)
40 mg PO DAILY 30 Days Qty: 30 0RF
celecoxib [Celebrex] 100 mg Capsule
100 mg PO BID Qty: 0
furosemide 20 mg tablet
60 mg PO DAILY
Serevent Diskus 50 mcg/dose Blister With Device
1 inh INHALATION R HS
coenzyme Q10 [CoQ-10] 100 mg Capsule
100 mg PO DAILY
docusate sodium [Colace] 100 mg Capsule
100 mg PO BID
folic acid 1 mg Tablet
1 mg PO DAILY
melatonin 5 mg Tablet
5 mg PO HS
potassium chloride 20 mEq Tablet Extended Release
20 meq PO BID
gabapentin 300 mg Capsule
300 mg PO HS
doxycycline hyclate 100 mg capsule
100 mg PO BID
midodrine 10 mg Tablet
10 mg PO TID
cyclosporine [Restasis] 0.05 % Dropperette
1 drp BOTH EYES Q12H
ivabradine 5 mg Tablet
2.5 mg PO BID
Discontinued
levalbuterol HCl 1.25 mg/3 mL Solution For Nebulization
1.25 mg inhalation R Q6HPRN PRN (Reason: sob/wheeze) Qty: 0 0RF
Discharge Orders:
Discharge Patient (As Directed); Ordered 12/18/24
Ordered By: Miles Durand
Discharge Date and Time
Discharge Date/Time: 12/18/24 12:51
Print Language: MALAGASY
--- NOTE | 2024-12-18 16:50 | W.PN.PUL3 ---
Today's Communication / Plan
-
Chest pain resolved
Remains on abx for strep PNA
Prednisone taper, continued
Patient has asked for 'Xanax for sleep' will defer to team (do not seem on home med list)
Patient is being prepared for discharge home today. Outpatient pulmonary office follow-up will be arranged. No additional recommendations at this time. Pulmonary service will now sign off. Please reconsult if there are any additional
questions/concerns, or if patient's respiratory status deteriorates.
Assessment
-
Patient is a 74 year old F w/ extensive complicated respiratory HX which she follows closely with pulmonology at [facility], known to Dr Neely, recently treated as an outpatient for Pseudomonas pneumonia with Levaquin, presents to the emergency
department for evaluation of 2 days of generalized weakness and fatigue associated with a dry nonproductive cough and shortness of breath. She notes that following 14 day course of abx for pseudomonas she did feel improved symptoms, but 2 weeks
later she had noticed her symptoms recur. CXR showing no acute changes/path.
She feels her cough/sputum are worsening. Productive yellow phlegm. We are consulted for eval.
Strep PNA
Recent Pseudomonas PNA s/p 14-day course of LVQ
Generalized weakness/fatigue
Mild leukocytosis
Chronic hypercarbic respiratory failure, VBG 08/24/23 7.39/60
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
Paroxysmal Atrial Fibrillation s/p Ablation
Asthma
Chronic Hypoxic Respiratory Failure, uses POC with ambulation
Monoclonal B-Cell Lymphocytosis
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
Maintained on Doxy BID by [facility]
Bronchiectasis
Hypothyroidism
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
Cardiac Ablation
Hysterectomy
Microdiscectomy
Right Hip Replacement
Cataract
Plan
No significant hypoxemia noted on arrival, she uses a POC at baseline with exertion
Can wean to off on RA if sats >90%
If saturating >96% on room air at rest then no need to do home O2 assessment prior to discharge
There is known prior history of lung disease including NTM, bronchiectasis, CVID, Asthma and now with new strep
Recently treated with abx as OP for pseudomonas
She is only maintained on Doxy BID as suppressive abx for NTM
Reassurance she does not have recurrent pseudomonas
ID consult obtained due to multiple issues with drug allergies in past
Complete abx per team -currently on ceftriaxone s/p 3 days doxycycline (12/14 - 12/16)
She is placed on IV steroids which she has many side effects from
Transitioned to PO taper on 12/17--she prefers 50mg dose
She declined albuterol due to Afib, added Atrovent nebs which she can use with her home levalbuterol
Dr. Leiva had reviewed atrovent use with the pt - she is not sure if this is helpful
CXR obtained on 12/13/2024 showing increasing opacification at the right costovertebral angle, suggestive of RML pneumonia
ECHO results in past reviewed, stable function
She notes new findings of elevated cardiac markers, proBNP 1770
Repeat studies remain unchanged
Diuresis resumed, currently on 40 mg PO lasix once daily
Will need outpatient pulmonary evaluation in our office including PFTs and 6MWT
Reviewed with patient
Patient is being prepared for discharge home today. Outpatient pulmonary office follow-up will be arranged. No additional recommendations at this time. Pulmonary service will now sign off. Thank you for allowing us to be involved in the care of
this patient. Please reconsult if there are any additional questions/concerns, or if patient's respiratory status deteriorates.
Diagnostic Data
CXR 12/13/24-There is airspace disease in the right lower lobe which suggests pneumonia.
There is also airspace disease in the left lower lobe which is likely atelectasis/scarring as this is improved compared to the prior study
CT CHEST 12/16/23- 1. Micronodular and irregular opacities in the anterior right upper lobe and left upper lobe as above which are suggestive of bronchiolitis. This could be seen in association with mycobacterial infection. The left upper lobe
more severely affected as compared with the right.
2. Interval significant improvement of left basilar atelectasis, with residual partial atelectasis of posterior and medial basal segments of the left lower lobe. Decreased left hemithorax volume loss.
3. Significantly decreased pericardial effusion as compared with prior examination. Unchanged mild cardiomegaly.
4. Nonobstructive left nephrolithiasis.
ECHO 12/16/24- Normal left ventricular size, wall thickness and systolic function. No regional wall motion abnormalities are seen. LV ejection fraction is 55-60% by Aranda's method of discs. Normal diastolic function. Mitral valve opens normally.
Thickened calcified mitral valve leaflets. Mitral annular calcification. Trace mitral regurgitation. Trileaflet, sclerotic aortic valve. Thickened aortic valve with normal leaflet excursion. Trace aortic regurgitation is seen. Tricuspid valve
opens normally. Mild tricuspid regurgitation. Estimated pulmonary artery pressure of 43 mmHg, assuming a right atrial pressure of 20 mmHg. Since echo August 2023, there is no significant change.
08/20/23- Normal biventricular size and systolic function without regional wall motion abnormality. No significant valvular disease. No prior study available for comparison.
Pulmonary function testing (� 03/16/2024 ): FEV1: post bronchodilator 1.68 L-72%. FVC:1.99 L at 65%. FEV1/FVC ratio:84%. T.39 L-66%. RV:62% RV/TLC ratio:39%. DLCO: 10.16-47%. DLCO/VA: 83%
Reports and relevant images were personally reviewed.
Total time spent today was 38 minutes for this encounter. Time includes reviewing laboratory test/imaging results, reviewing pertinent medical records, obtaining and reviewing medical history, performing an appropriate exam, ordering medications,
tests and procedures. Time also includes documentation of this encounter, coordinating patient care and communicating with other healthcare professionals. Total time does not include separately billed tests performed on this date of service.
Subjective Data
-
Date of Service:
Date of Service: December 18, 2024
Chief Complaint: Pulmonary Follow Up
Subjective:
Patient seen earlier today (late note entry). Afebrile overnight. She feels well, no chest pain. Improving shortness of breath. Denies SIMPSON, nausea, fevers or chills
Review of Systems
General: Other (Negative unless mentioned above)
Objective Data
Data Reviewed
Vital Signs / I&O / Oxygen:
Vital Signs
Temp Pulse Resp BP Pulse Ox
97.8 F 80 16 122/70 95
12/18/24 07:46 12/18/24 08:31 12/18/24 07:46 12/18/24 08:31 12/18/24 08:00
Intake and Output
12/17/24 12/18/24 12/19/24
06:59 06:59 06:59
Intake Total 2120 / 2120 1300 / 1300
Output Total 2000 / 2000 1200 / 1200
Balance 120 / 120 100 / 100
SaO2 95
Nasal Cannula flow liters per 2
minute
Physical Exam
General: Comfortable and Other (NAD)
HEENT: Normocephalic, Anicteric and Moist Mucous Membranes
Cardiovascular: S1-S2 and Regular Rhythm
Respiratory: Clear and Non-Labored Respirations
GI: Soft, Non Distended and Non Tender
Neurology: Awake, Alert, Oriented and No Motor Deficits
Skin: Warm, Dry and Good Color
Labs/Micro/Reports
Lab Data
12/18/24 04:56
12/18/24 04:56
Microbiology
12/13/24 22:28 Sputum Respiratory Culture - Final
Streptococcus pneumoniae
12/13/24 22:28 Sputum Gram Stain - Final
== END 2024-12-18 12:51 | disposition home health service (06) | DRG 193 ==
LOC: 4 WEST ACU 22:08
PROVIDERS: Emergency Medicine; Nurse Practitioner Family; Physician Assistant Medical; ADMITTING PHYSICIAN Internal Medicine; ATTENDING PHYSICIAN Hospitalist; CONSULT PHYSICIAN Internal Medicine; CONSULT PHYSICIAN Internal Medicine Infectious Disease; EMERGENCY PHYSICIAN Emergency Medicine; FAMILY PHYSICIAN Internal Medicine; OTHER PHYSICIAN Nuclear Medicine Nuclear Cardiology
DX: J13 Pneumonia due to Streptococcus pneumoniae (principal); I50.31 Acute diastolic (congestive) heart failure; J80 Acute respiratory distress syndrome; C91.10 Chronic lymphocytic leukemia of B-cell type not having achieved remission; J44.0 Chronic obstructive pulmonary disease with (acute) lower respiratory infection; R04.2 Hemoptysis; D80.1 Nonfamilial hypogammaglobulinemia; D84.9 Immunodeficiency, unspecified; J47.0 Bronchiectasis with acute lower respiratory infection; I47.11 Inappropriate sinus tachycardia, so stated; J98.11 Atelectasis; I47.20 Ventricular tachycardia, unspecified; I47.19 Other supraventricular tachycardia; M19.90 Unspecified osteoarthritis, unspecified site; I48.0 Paroxysmal atrial fibrillation; G62.9 Polyneuropathy, unspecified; E03.9 Hypothyroidism, unspecified; F32.A Depression, unspecified; F41.9 Anxiety disorder, unspecified; J32.9 Chronic sinusitis, unspecified; G90.A Postural orthostatic tachycardia syndrome [POTS]; Z66 Do not resuscitate; Z96.641 Presence of right artificial hip joint; Z87.01 Personal history of pneumonia (recurrent); Z79.2 Long term (current) use of antibiotics; Z87.891 Personal history of nicotine dependence; Z90.710 Acquired absence of both cervix and uterus; Z79.890 Hormone replacement therapy; Z79.1 Long term (current) use of non-steroidal anti-inflammatories (NSAID); Z88.1 Allergy status to other antibiotic agents; Z88.5 Allergy status to narcotic agent; Z88.7 Allergy status to serum and vaccine; Z79.51 Long term (current) use of inhaled steroids; Z88.8 Allergy status to other drugs, medicaments and biological substances; Z87.440 Personal history of urinary (tract) infections; Z91.040 Latex allergy status
CPT/HCPCS: 71046; 80048; 80053; 83036; 83735; 83880; 84484; 85025; 85027; 87070; 87071; 87186; 87205; 87449; 87899; 90677; 93005; 93306; 94640; 96375; 97116; 97162; 97530; 99285; G0009

== ENCOUNTER → 2024-12-30 13:00 | Outpatient (REF) | payer MEDICARE, OTHER, SELFPAY | LOC: HWRAD 13:00 | PROVIDERS: ATTENDING PHYSICIAN Nurse Practitioner Family; FAMILY PHYSICIAN Internal Medicine | DX: Z87.01 Personal history of pneumonia (recurrent) (principal) | CPT/HCPCS: 71046 ==

== ENCOUNTER → 2025-03-14 12:32 | Outpatient (REF) | payer MEDICARE, OTHER, SELFPAY | LOC: WOUND 12:32 | PROVIDERS: ATTENDING PHYSICIAN Surgery; FAMILY PHYSICIAN Internal Medicine | DX: L97.212 Non-pressure chronic ulcer of right calf with fat layer exposed (principal); J45.909 Unspecified asthma, uncomplicated; I48.91 Unspecified atrial fibrillation; D80.9 Immunodeficiency with predominantly antibody defects, unspecified; J47.9 Bronchiectasis, uncomplicated; Z95.818 Presence of other cardiac implants and grafts | CPT/HCPCS: 11042; 99213 ==

== ENCOUNTER → 2025-03-31 11:19 | Outpatient (REF) | payer MEDICARE, OTHER, SELFPAY | LOC: WOUND 11:19 | PROVIDERS: ATTENDING PHYSICIAN Surgery; FAMILY PHYSICIAN Internal Medicine Cardiovascular Disease | DX: L97.212 Non-pressure chronic ulcer of right calf with fat layer exposed (principal); J45.909 Unspecified asthma, uncomplicated; I48.91 Unspecified atrial fibrillation; D80.9 Immunodeficiency with predominantly antibody defects, unspecified; J47.9 Bronchiectasis, uncomplicated; Z95.818 Presence of other cardiac implants and grafts | CPT/HCPCS: 11042 ==

== ENCOUNTER → 2025-04-07 11:19 | Outpatient (REF) | payer MEDICARE, OTHER, SELFPAY | LOC: WOUND 11:19 | PROVIDERS: ATTENDING PHYSICIAN Surgery; FAMILY PHYSICIAN Internal Medicine | DX: L97.212 Non-pressure chronic ulcer of right calf with fat layer exposed (principal); J45.909 Unspecified asthma, uncomplicated; I48.91 Unspecified atrial fibrillation; D80.9 Immunodeficiency with predominantly antibody defects, unspecified; J47.9 Bronchiectasis, uncomplicated; Z95.818 Presence of other cardiac implants and grafts | CPT/HCPCS: 11042 ==

== ENCOUNTER → 2025-04-15 10:15 | Outpatient (REF) | payer MEDICARE, OTHER, SELFPAY | LOC: WOUND 10:15 | PROVIDERS: ATTENDING PHYSICIAN Surgery | DX: L97.212 Non-pressure chronic ulcer of right calf with fat layer exposed (principal); J45.909 Unspecified asthma, uncomplicated; I48.91 Unspecified atrial fibrillation; D80.9 Immunodeficiency with predominantly antibody defects, unspecified; J47.9 Bronchiectasis, uncomplicated; Z95.818 Presence of other cardiac implants and grafts | CPT/HCPCS: 11042 ==

== ENCOUNTER → 2025-04-21 10:23 | Outpatient (REF) | payer MEDICARE, OTHER, SELFPAY | LOC: WOUND 10:23 | PROVIDERS: ATTENDING PHYSICIAN Surgery; FAMILY PHYSICIAN Internal Medicine | DX: L97.212 Non-pressure chronic ulcer of right calf with fat layer exposed (principal); J45.909 Unspecified asthma, uncomplicated; I48.91 Unspecified atrial fibrillation; D80.9 Immunodeficiency with predominantly antibody defects, unspecified; J47.9 Bronchiectasis, uncomplicated; Z95.818 Presence of other cardiac implants and grafts | CPT/HCPCS: 11042 ==

== ENCOUNTER → 2025-05-05 10:43 | Outpatient (REF) | payer MEDICARE, OTHER, SELFPAY | LOC: WOUND 10:43 | PROVIDERS: ATTENDING PHYSICIAN Surgery; FAMILY PHYSICIAN Internal Medicine | DX: L97.212 Non-pressure chronic ulcer of right calf with fat layer exposed (principal); J45.909 Unspecified asthma, uncomplicated; I48.91 Unspecified atrial fibrillation; D80.9 Immunodeficiency with predominantly antibody defects, unspecified; J47.9 Bronchiectasis, uncomplicated; Z95.818 Presence of other cardiac implants and grafts | CPT/HCPCS: 11042 ==

== ENCOUNTER → 2025-05-12 10:01 | Outpatient (REF) | payer MEDICARE, OTHER, SELFPAY | LOC: WOUND 10:01 | PROVIDERS: ATTENDING PHYSICIAN Surgery | DX: L97.212 Non-pressure chronic ulcer of right calf with fat layer exposed (principal); J45.909 Unspecified asthma, uncomplicated; I48.91 Unspecified atrial fibrillation; D80.9 Immunodeficiency with predominantly antibody defects, unspecified; J47.9 Bronchiectasis, uncomplicated; Z95.818 Presence of other cardiac implants and grafts | CPT/HCPCS: 11042 ==

== ENCOUNTER 2025-05-23 10:39 | Outpatient (REF) | payer MEDICARE, OTHER, SELFPAY | END 2025-05-23 23:59 | disposition home or self-care (01) | LOC: WOUND 10:39 | PROVIDERS: ATTENDING PHYSICIAN Surgery; FAMILY PHYSICIAN Internal Medicine | DX: L97.212 Non-pressure chronic ulcer of right calf with fat layer exposed (principal); J45.909 Unspecified asthma, uncomplicated; I48.91 Unspecified atrial fibrillation; D80.9 Immunodeficiency with predominantly antibody defects, unspecified; J47.9 Bronchiectasis, uncomplicated; Z95.818 Presence of other cardiac implants and grafts | CPT/HCPCS: 11042 ==

== ENCOUNTER 2025-06-08 06:44 | Inpatient (IN) | payer MEDICARE, OTHER, SELFPAY ==
[2025-06-07 23:52] VITALS: BP 171/101
[2025-06-08] VITALS (13 sets, daily range): BP systolic 128–177; BP diastolic 76–108; PULSE 69; O2SAT 99; BMI 22.0
[2025-06-08] MEDS: DILAUDID 0.5 MG IV ×7 (00:33→23:55)
[2025-06-08] MEDS: NSS 1000 IV (00:36)
[2025-06-08 00:48] LABS: Hematocrit 33.2 % (37.0-47.0); Hemoglobin 11.1 g/dL (12.0-16.0); Mean Corp Hgb Conc. 33.4 g/dL (33.0-37.0); Mean Corpuscular Volume 87.4 fL (81.0-99.0); Nucleated Red Blood Cells % 0 %; Platelet Count 256 10^3/uL (130-400); Red Cell Dist. Width 15.7 % (11.5-14.5)
[2025-06-08 00:59] LABS: INR 0.93; PT 12.5 Sec (11.4-14.6)
[2025-06-08 01:00] LABS: APTT 20.4 Sec (23.4-35.0)
[2025-06-08 01:15] LABS: ALT (SGPT) 18 U/L (0-35); AST (SGOT) 29 U/L (14-36); Albumin 3.9 g/dl (3.5-5.0); Alkaline Phosphatase 41 U/L (38-126); Blood Urea Nitrogen 33 mg/dl (7-17); Calcium 10.1 mg/dl (8.4-10.2); Carbon Dioxide 31 mmol/L (22-30); Chloride 101 mmol/L (98-107); Glucose 104 mg/dl (70-99); Potassium 4.8 mmol/L (3.5-5.1); Sodium 135 mmol/L (135-145); Total Protein 6.0 g/dl (6.3-8.2); eGFR > 60.00
--- NOTE | 2025-06-08 06:21 | ED.GENMED ---
History of Present Illness
General
Chief Complaint: Musculo-Skeletal Complaint
Source: patient and ambulance crew
Exam Limitations: none
Time Seen by Provider: 06/07/25 23:58
Nursing documentation reviewed up to this point in time: agreed with
History of Present Illness
History of Present Illness:
Note:
CHIEF COMPLAINT(S)
Fall resulting in possible shoulder and wrist injury.
HISTORY OF PRESENT ILLNESS
The patient is a 74-year-old female who tripped while walking from the family room into another room. She intended to carry a water container to the kitchen and turn off the lights, but she stumbled over her iPad and could not complete the task. She
suspects potential fracture or dislocation involving her shoulder, humerus, and/or wrist. The fall occurred at her home, and she described the sequence of events leading to the fall and her inability to complete her intended task afterward.
PAST MEDICAL AND SURIGICAL HISTORY
The patient has a history of Chronic Obstructive Pulmonary Disease (COPD) which developed from asthma. 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
CHRONIC MEDICAL CONDITIONS SIGNIFICANTLY AFFECTING CARE
- Chronic Obstructive Pulmonary Disease (COPD)
ALLERGIES
The patient has an allergy to adhesives, with a preference for silicone-based products due to skin reactions.
REVIEW OF SYSTEMS
- Musculoskeletal: Reports a fall resulting in potential fracture or dislocation involving shoulder, humerus, and/or wrist.
- Respiratory: History of Chronic Obstructive Pulmonary Disease (COPD).
PHYSICAL EXAM
General: Alert, no acute distress.
Skin: Warm, dry.
Head: Normocephalic, atraumatic.
Neck: Supple, trachea midline.
Eye, Ears, Nose, Mouth, and Throat: Oral mucosa moist.
Cardiovascular: Normal peripheral perfusion, No edema.
Respiratory: Respirations are non-labored.
Gastrointestinal: Abdomen nondistended
Back: Normal range of motion, Normal alignment.
Musculoskeletal: Tenderness over the shoulder and wrist, possible swelling, and restricted range of motion.
Neurological: Alert and oriented to person, place, time, and situation, No focal neurological deficit observed.
Psychiatric: Cooperative, appropriate mood & affect.
PLAN
The patient will receive diagnostic imaging including X-rays or other necessary imaging of the shoulder, humerus, and wrist to assess for fracture or dislocation. A dermabond, an adhesive, will be considered for wound management after confirming
compatibility with patients allergy. Further management will be based on imaging results.
DIFFERENTIAL DIAGNOSIS
The Differential Diagnosis includes, in no particular order and is not limited to:
1. Shoulder Dislocation�not seen on x-ray
2. Humerus Fracture
3. Wrist Fracture
4. Shoulder Fracture
5. Sprain of the Shoulder
6. Sprain of the Wrist
7. Contusion
8. Ligament Tear
9. Soft Tissue Injury
10. Skin tear
Disposition:
SUMMARY OF ENCOUNTER
The patient, a 74-year-old female, presented to the emergency department (ED) with injuries sustained from a fall. Examination revealed a fracture of the right humeral head and multiple skin tears. The skin tears were managed with Dermabond,
considering the patients allergy to standard adhesives. A CT scan of the head and neck was performed and yielded negative results, ruling out any acute intracranial or cervical spine injury. Due to the significant pain associated with the humerus
fracture and the patients frequent requirement for pain medication, it was determined that she could not be adequately managed at home as she lives alone.
DISPOSITION
The patient is to be admitted to a hospital service for further observation and pain management.
INDEPENDENT REVIEW OF LABS AND INTERPRETATION OF TESTS
My independent interpretation of the CT scan of the head and neck is that no acute pathology was identified.
MEDICAL DECISION MAKING
- Complexity of Data Reviewed: Chronic conditions affecting care including Chronic Obstructive Pulmonary Disease (COPD). Differential diagnosis considered included shoulder dislocation, humerus fracture, wrist fracture, shoulder fracture, sprain of
the shoulder, sprain of the wrist, contusion, ligament tear, soft tissue injury, and peripheral nerve injury.
- Risk:
Decisions regarding diagnostic testing with risks were considered, including the use of CT imaging. The decision for hospital admission was made based on the high risk of complications and the need for extensive pain management.
DIAGNOSIS
1. Fracture of humeral head, right shoulder - ICD-10: S42.201A
2. Multiple skin tears - ICD-10: L08.9
Past History
Past History
ED Past Medical History: Arrthythmia (afib), COPD, Hypothyroidism and Other (Monoclonal B-cell lymphocytosis)
ED Past Surgical History: Cardiac (Cardiac ablation for A-fib), Gynecological (Hysterectomy), Orthopedic (Microdiscectomy, right hip replacement) and Other (Cataract)
Social History
Tobacco: Former smoker
Alcohol: None
Drug: None
Personal:
Living: alone
Employment: Retired
Phy Exam
Physical Exam
Physical Exam:
.
Course
Orders/Labs/Results
Orders:
Orders
06/08/25
CT Cervical Spine W/o Iv Contr Urgent
Reason For Exam: etoh, fall
CT Head W/o Iv Contrast Urgent
Reason For Exam: etoh, fall
06/08/25 00:00
Cardiac Monitoring- Treatment ONCE
0.9% Sodium Chloride 1000 ml [Nss] 1,000 ml IV BOLUS
06/08/25 00:01
Electrocardiogram (*1) Stat
Reason for Study: Abdominal Pain
EKG- Treatment ONCE
06/08/25 00:02
CR Forearm - Right 2 View Urgent
Comment:
Reason For Exam: fall
06/08/25 00:03
CR Knee- Right 4 Or More View* Urgent
Comment:
Reason For Exam: fall
06/08/25 00:11
CR Chest - 2 Views Urgent
Comment:
Reason For Exam: right arm deformity, fall
CR Shoulder, Trauma - Right Urgent
Reason For Exam: right arm deformity, fall
06/08/25 00:21
HYDROmorphone [Dilaudid] 0.5 mg IV NOW STA
06/08/25 00:31
Alcohol Urgent
Complete Blood Count/With Diff Urgent
Comprehensive Metabolic Panel Urgent
PTT Urgent
Prothrombin Time Urgent
06/08/25 01:00
HYDROmorphone [Dilaudid] 0.5 mg IV NOW STA
06/08/25 02:08
Humerus, Right 2 Views [CR Humerus - Right Min 2 View*] Urgent
Comment:
Reason For Exam: pain
06/08/25 05:33
HYDROmorphone [Dilaudid] 0.5 mg IV NOW STA
06/08/25 06:17
HYDROmorphone [Dilaudid] 0.5 mg IV NOW STA
06/08/25 06:18
Admit/Transfer Patient As Directed
Co-Sign Provider:
Level of Care: Inpatient admission
Assign to:: Medical/Surgical
Physician / Group: Luis Alfredo
Diagnosis: Fall, Right Humerus Fracture
Reason for Hospitalization: Fall, Right Humerus Fracture
Expected length of stay greater than two midnights?: Yes
ELOS- Estimated Length of Stay in days: 2
I certify the patient meets the requirements for IP care: Yes
06/08/25 06:19
PRN Pain Medication Management As Directed
May give lesser potent ordered pain med per pt: Yes
preference::
Protocol:: Medication orders for pain may be administered in a
manner that supports deferring to patient preference
when the pt is:
- Requesting an ordered lesser potent pain medication.
Least to most potent pain medications are defined
as: acetaminophen < NSAID < tramadol < opioids
(morphine, oxycodone, hydromorphone).
- Requesting a lesser dose of the same medication IF
ORDERED.
- Requesting a less intrusive route of administration
if both routes are prescribed by the provider (PO <
IV).
06/08/25 06:27
Code Status As Directed
Resuscitation Status: Do not resuscitate
Reached after discussion with pt or family/Healthcare POA: Yes
06/08/25 06:28
DNR Bracelet Application ONCE
Abnormal Lab Results
06/08/25
00:31
WBC 11.5 H 10^3/uL
(4.8-10.8)
RBC 3.80 L 10^6/uL
(4.20-5.40)
Hgb 11.1 L g/dL
(12.0-16.0)
Hct 33.2 L %
(37.0-47.0)
RDW 15.7 H %
(11.5-14.5)
Abs Immat Gran (auto) 0.1 H 10^3/uL
(0-0.05)
Absolute Lymphs (auto) 4.3 H 10^3/uL
(1.2-3.4)
Absolute Monos (auto) 1.1 H 10^3/uL
(0.1-0.6)
Monocytes % 9.5 H %
(1.7-9.3)
APTT 20.4 L Sec
(23.4-35.0)
Carbon Dioxide 31 H mmol/L
(22-30)
BUN 33 H mg/dl
(7-17)
Glucose 104 H mg/dl
(70-99)
Total Protein 6.0 L g/dl
(6.3-8.2)
06/08/25 00:31
06/08/25 00:31
Vital Signs
Initial and Last Documented VS:
Initial Vital Signs
Temp Pulse Resp BP Pulse Ox
98.1 F 71 20 171/101 97
06/07/25 23:52 06/07/25 23:52 06/07/25 23:52 06/07/25 23:52 06/07/25 23:52
Last Documented Vital Signs
Temp Pulse Resp BP Pulse Ox
98.1 F 62 9 172/94 98
06/07/25 23:52 06/08/25 06:15 06/08/25 06:15 06/08/25 06:00 06/08/25 06:23
*Pulse Oximetry
SaO2: 98
Nasal Cannula flow liters per minute: 2
Oxygen Mode of Delivery: Room air
Patient hypoxic: no
*Critical Care Note
Total Time (30-74mins, 75-104mins- exclusive of procedures): Not Applicable
Update Note
Update Note:
NAME: DEBORAH JOSE
DATE OF EXAM: 06/08/2025
Patient No: [id number]
Physician: RAGHAV
Date of : 1950
Past Medical History (entered by Technologist):
Reason For Exam (entered by Technologist): fall
Other Notes (entered by Technologist): priors
Additional Information (per [facility] Radiologist):
CT head and C-spine without IV contrast
IMPRESSION:
CT HEAD: No hemorrhage or other evidence of trauma.
CT CERVICAL SPINE: No acute osseous trauma. Craniocervical junction intact. Vertebral body heights are intact. Multilevel degeneration.
Case finalized on 06/08/25 05:13 EDT
Rosales Ayala M.D.
This report has been electronically signed and verified by the Radiologist whose name is printed above.
Skin tear on the right knee and upper noonan. Approximately 7 cm x 4 cm with a flap. Flap was macerated. It was approximated as closely as possible. Prineo was applied over the mesh to close the wound.
Skin tear on the left medial forearm approximately 2 x 3 cm. Flap was also macerated. Mesh and Prineo was used to close the wound.
Patient is allergic to Tdap and refuses all forms of tetanus prophylaxis.
ED Attending Note
-
Portions of this chart may have been created with voice recognition software.� Occasional wrong word or��sound alike� substitutions may have occurred due to the inherent limitations of voice recognition software.
Discharge Plan
Departure
Patient Disposition: Admit
Date of Disposition: 06/08/25
Time of Disposition: 06:52
Admit to: Telemetry
Presentation/result/management discussed w/ accepting MD/DO: Hospitalist
Condition: Fair
Discharge Problem:
Humeral head fracture, Skin tear, Fall
Interventions
Interventions:
*Risk Screen - Suicide Last Done: 06/07/25 23:52
*General Assessment Last Done: 06/07/25 23:52
*Neglect/Abuse Screening Last Done: 06/07/25 23:52
*ED COVID-19 Vaccine History Last Done: 06/07/25 23:52
*ED Influenza Vaccine History Last Done: 06/07/25 23:52
[facility] Fall Risk Assessment Tool Last Done: 06/08/25 00:14
ED-Musculoskeletal Assessment Last Done: 06/08/25 05:42
--- NOTE | 2025-06-08 06:34 | HPS.HSE ---
Family Physician
-
Family Physician: Juan Kamara
Chief Complaint
-
Fall at Home
History of Present Illness
Patient is a 74y F with PMH significant for A-Fib s/p ablation, POTS, RODRIGUEZ / chronic bronchitis, osteoporosis and peripheral neuropathy who presents to ED complaining of R arm pain s/p fall at home. Patient states that she was walking in slipper
when her foot caught on a rug and she fell to the floor. She notes that she struck a doorway and a chair on her way to the ground. She noted immediate and severe pain in the R shoulder. She did strike her head. She denies any LOC. She denies
any prodrome of chest pain, dyspnea, lightheadedness or dizziness. Patient presented to the ED for further evaluation and treatment.
Medical History
Past Medical History
Past Medical History: Reports Other
Additional Past Medical History:
Osteoarthritis
Paroxysmal atrial fibrillation, status post ablation 2007 and 2017.
Congestive heart failure, preserved ejection fraction.
POTS, on Midodrine.
Peripheral vascular disease.
Asthma, severe and persistent.
RODRIGUEZ/Bronchiectasis.
Colon polyps.
Migraines.
Peripheral neuropathy.
Degenerative disc disease.
Ambulatory dysfunction.
Rheumatoid arthritis.
Hypothyroidism.
Squamous cell carcinoma, status post multiple excisions.
Chronic normocytic anemia.
Prolapsed urethra.
Osteoporosis.
Hypogammaglobulinemia
Monoclonal B-cell lymphocytosis.
Depression / Anxiety.
Past Surgical History: Reports Other
Additional Past Surgical History:
Right total hip arthroplasty, 2020, at an outside facility.
Microdiscectomy.
Hysterectomy.
Atrial fibrillation ablation x2.
Loop recorder implant.
Squamous cell carcinoma excision x2.
Left leg skin biopsy.
Cataract extraction.
Social History
Tobacco: Former Smoker (Quit smoking in 1979. )
Alcohol: Daily (2 drinks daily on average)
Drug: None
Family History
Family History: Not pertinent
Allergies / Home Medications
Allergies reflects when Allergies were last updated in [employer]
Home Medications with original date entered in [employer]
Allergy/Medication List:
Allergies
Allergy/AdvReac Type Severity Reaction Status Date / Time
adhesive Allergy skin Verified 06/07/25 23:51
irritation
albuterol Allergy SVT/A-fib Verified 06/07/25 23:51
alendronate sodium (From Allergy abd pain, Verified 06/07/25 23:51
Fosamax) diarrhea
azithromycin Allergy Rash Verified 06/07/25 23:51
calamine Allergy Rash Verified 06/07/25 23:51
camphor Allergy Shortness Verified 06/07/25 23:51
of Breath
chlorhexidine Allergy Shortness Verified 06/07/25 23:51
of Breath
codeine Allergy Rash Verified 06/07/25 23:51
epinephrine Allergy can have Verified 06/07/25 23:51
0.7mg max,
very high
rate SVT
glucose (From Gammagard S/D) Allergy migraine, Verified 06/07/25 23:51
N/V/D,
rigors
glycine (From Gammagard S/D) Allergy migraine, Verified 06/07/25 23:51
N/V/D,
rigors
hydrocodone Allergy can take Verified 06/07/25 23:51
synthetic
form only
IgA less than or equal to 50 Allergy migraine, Verified 06/07/25 23:51
mcg/mL (From Gammagard S/D) N/V/D,
rigors
immune globulin,gamma (IgG) Allergy migraine, Verified 06/07/25 23:51
human (From Gammagard S/D) N/V/D,
rigors
ipratropium Allergy doesn't Verified 06/07/25 23:51
work
latex Allergy Rash Verified 06/07/25 23:51
metoprolol Allergy couldn't Verified 06/07/25 23:51
move limbs
morphine Allergy Rash Verified 06/07/25 23:51
oxycodone Allergy can take Verified 06/07/25 23:51
synthetic
form only
propranolol (From Inderal LA) Allergy couldn't Verified 06/07/25 23:51
move limbs
tetanus toxoid, adsorbed Allergy Rash Verified 06/07/25 23:51
tuberculin, purified protein Allergy Rash Verified 06/07/25 23:51
deriva
diltiazem (From Cardizem) AdvReac edema,BP Verified 06/07/25 23:51
drop
blood transfusion reaction Allergy full body Uncoded 06/07/25 23:51
hives
Home Medications
azelastine 137 mcg (0.1 %) nasal spray 2 spray intranasal DAILY Allergies 11/20/22
fexofenadine 180 mg tablet 180 mg PO DAILY Allergies 11/20/22
gabapentin 600 mg tablet 600 mg PO 0700,1500,2200 Pain 11/20/22
krill [id number]-[id number]-isczndjlmture 300 mg-90 mg-24 mg-50 mg capsule (krill oil) 1 cap PO DAILY Supplement ##0 11/20/22
levothyroxine 112 mcg tablet 112 mcg PO MOWEFR@ Thyroid 11/20/22
levothyroxine 125 mcg tablet 125 mcg PO SUTUTHSA@ Thyroid 11/20/22
montelukast 10 mg tablet 10 mg PO HS Lung/breathing issues 11/20/22
ascorbic acid (vitamin C) 500 mg tablet (Vitamin C) 500 mg PO QPM Supplement 07/03/23
cyanocobalamin (vitamin B-12) 1,000 mcg tablet 500 mcg PO DAILY Supplement 07/03/23
duloxetine 30 mg capsule,delayed release 30 mg PO DAILY Pain 07/03/23
levalbuterol tartrate 45 mcg/actuation aerosol inhaler 2 puff inhalation Q4H PRN asthma/COPD 07/03/23
roflumilast 500 mcg tablet (Daliresp) 500 mcg PO HS Lung/Breathing Issues 07/03/23
duloxetine 60 mg capsule,delayed release 60 mg PO HS Depression ##0 08/17/23
pantoprazole 40 mg tablet,delayed release 40 mg PO DAILY 30 days #30 tabs 09/10/23
celecoxib 100 mg capsule (Celebrex) 100 mg PO BID ##0 04/14/24
salmeterol 50 mcg/dose blister powder for inhalation (Serevent Diskus) 1 inh inhalation BID 06/02/24
docusate sodium 100 mg capsule (Colace) 100 mg PO QPM 06/04/24
folic acid 1 mg tablet 1 mg PO DAILY 06/04/24
melatonin 5 mg tablet 5 mg PO HS 06/04/24
potassium chloride 20 mEq tablet,extended release 20 meq PO BID 06/04/24
gabapentin 300 mg capsule 300 mg PO HS in addition to 600mg 12/13/24
ivabradine 5 mg tablet 2.5 mg PO BID 12/13/24
midodrine 10 mg tablet 10 mg PO 0700,1400,2000 12/13/24
Nutrafol 3 cap PO QPM 05/03/25
acetaminophen 650 mg tablet,extended release 1,300 mg PO Q12H 05/03/25
calcium 600 mg (as carbonate)-vitamin D3 5 mcg (200 unit) tablet 2 tab PO QPM 05/03/25
denosumab 60 mg/mL subcutaneous syringe (Prolia) 60 mg SC [id number] 05/03/25
fluticasone propionate 50 mcg/actuation nasal spray,suspension 2 spray intranasal BID 05/03/25
furosemide 40 mg tablet 60 mg PO DAILY 05/03/25
levalbuterol HCl 0.63 mg/3 mL solution for nebulization 0.63 mg inhalation Q6H PRN asthma/COPD 05/03/25
multivitamin 2 tab PO DAILY 05/03/25
pyridoxine (vitamin B6) 1 tab PO DAILY 05/03/25
fluticasone propionate 250 mcg/actuation blister powder for inhalation 2 inh inhalation BID 05/05/25
tobramycin 300 mg/4 mL solution for nebulization 300 mg inhalation BID 06/08/25
Review of Systems
-
History Source: Patient
A 12 point ROS was completed and negative except as noted: Yes
Constitutional: Denies Fever or Chills
EENT: Denies Sore Throat
Respiratory: Reports Cough (chronic); Denies Trouble Breathing
Cardiac: Denies Chest Pain or Palpitations
Abdomen/GI: Denies Abdominal Pain, Nausea, Vomiting or Diarrhea
: Denies Dysuria or Frequency
Musculoskeletal: Reports Joint Pain; Denies Edema
Skin: Reports Other (wound / skin tears)
Neurological: Denies Dizzy or Headache
Psych: Denies Depression or Anxiety
Physical Exam
Vital Signs
Vital Signs
Temp Pulse Resp BP Pulse Ox
98.1 F 62 9 172/94 98
06/07/25 23:52 06/08/25 06:15 06/08/25 06:15 06/08/25 06:00 06/08/25 06:23
Physical Exam
General: Other (74y F in moderate distress due to pain.)
HEENT: Moist mucous membranes and Other (Contusion at the R shinto. No active bleeding.)
Respiratory: Other (Few scattered squeaks and wheezes.)
Cardiac: S1/S2 and Regular Rhythm; No Murmur
GI: Soft, Non Tender, Non Distended and Normal Bowel Sounds
Musculoskeletal: No Clubbing, No Cyanosis, No Edema and Other (Ecchymosis / swelling at R shoulder. Sling and splint / wrap in place from R hand to shoulder.)
Skin: Other (Skin tears L forearm and R knee)
Neuro: AO x 3
Laboratory Results
-
06/08/25:
06/08/25:
Laboratory Results
PT 12.5 Sec (11.4-14.6) 06/08/25
INR 0.93 06/08/25
APTT 20.4 Sec (23.4-35.0) L 06/08/25
Total Bilirubin 0.6 mg/dl (0.2-1.3) 06/08/25
AST 29 U/L (14-36) 06/08/25:
ALT 18 U/L (0-35) 06/08/25
Alkaline Phosphatase 41 U/L (38-126) 06/08/25
Impression/Plan
-
A/P: Patient is a 74y F with PMH significant for asthma, neuropathy, POTS and osteoporosis who presents to ED complaining of R shoulder pain s/p fall at home.
Fall at Home
Right Proximal Humerus Fracture
Skin Tears
- Admit for further evaluation and treatment.
- Fall sounds mechanical in nature with [id number]-zii-vcfi description.
- No prodrome of lightheadedness, dizziness, etc.
- Maintain sling / immobilization of RUE.
- Ortho consulted for further evaluation - likely non-operative management.
- PT / OT evaluations.
- Wound Care eval for local care to multiple skin tears.
POTS
- BP quite elevated in the ED, in part due to pain.
- Continue usual midodrine - but with holding parameters to avoid supine hypertension.
- Again, no prodrome of lightheadedness etc prior to today's fall.
Severe Persistent Asthma
RODRIGUEZ / Chronic Bronchitis
- Patient currently on inhaled tobramycin.
- Continue current regimen with multiple inhaled medications, montelukast, etc.
- Monitor for any new / worsening symptoms.
Chronic HFpEF
- No evidence of volume overload on exam.
- Hold Lasix acutely.
- Follow I/Os, daily weights, etc.
Peripheral Neuropathy
- Stable. Continue gabapentin.
Anxiety / Depression
- Stable. Continue duloxetine.
Hypothyroidism
- Stable. Continue T4 replacement.
DVT Prophylaxis: SCDs
Code Status: DNR
--- NOTE | 2025-06-08 06:57 | EDRN ---
This RN entered room to introduce myself as the nurse taking over her care and to wrap her wounds as instructed bt Dr. Berry. 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 She requested to use
stretch gauze as opposed to the looser kerlix and declined additional gauze for absorption. Will return to dress left arm wound when the next skin dries for a few more minutes per Dr. Berry request. Patient satisfied with the leg dressing for
the time.
--- NOTE | 2025-06-08 08:50 | W.PN.HOSP.TC ---
Addendum entered and electronically signed by Alber Frances MD 06/08/25 16:15:
D/C Ativan to avoid oversedation and no Sx withdrawal. Also add Lovenox for DVT prophylaxis.
Original Note:
Today's Communication/Plan
-
Pain control. Ortho eval
Assessment / Plan
Assessment / Plan
Physical Exam
General: Other (74y F in moderate distress due to pain.)
HEENT: Moist mucous membranes and Other (Contusion at the R presybeterian. No active bleeding.)
Respiratory: Other (Few scattered squeaks and wheezes.)
Cardiac: S1/S2 and Regular Rhythm; No Murmur
GI: Soft, Non Tender, Non Distended and Normal Bowel Sounds
Musculoskeletal: No Clubbing, No Cyanosis, No Edema and Other (Ecchymosis / swelling at R shoulder. Sling and splint / wrap in place from R hand to shoulder.)
Skin: Other (Skin tears L forearm and R knee)
Neuro: AO x 3, no neuro deficits
A/P:
Fall at Home
Right Proximal Humerus Fracture
Skin Tears
Admitted for further evaluation and treatment.
Fall sounds mechanical in nature with [id number]-[id number] description.
No prodrome of lightheadedness, dizziness, etc.
Maintain sling / immobilization of RUE.
Ortho consulted for further evaluation - likely non-operative management.
PT / OT evaluations.
Wound Care eval for local care to multiple skin tears.
Adjust pain regimen to IV Toradol for mild, oxycodone for moderate, and Dilaudid for severe. She is on scheduled Tylenol and also Neurontin (by the way she is out of the max doses of Neurontin and she is aware).
POTS
BP quite elevated in the ED, in part due to pain. Blood pressure rate trending down but given that she is labile with hypertension would not treat immediately.
Continue usual midodrine - but with holding parameters to avoid supine hypertension.
Again, no prodrome of lightheadedness etc prior to today's fall.
Severe Persistent Asthma
RODRIGUEZ / Chronic Bronchitis
Patient currently on inhaled tobramycin.
Continue current regimen with multiple inhaled medications, montelukast, etc.
Monitor for any new / worsening symptoms.
Chronic HFpEF
No evidence of volume overload on exam.
Hold Lasix acutely.
Follow I/Os, daily weights, etc.
Peripheral Neuropathy
Stable. Continue gabapentin.
Anxiety / Depression
Stable. Continue duloxetine.
Hypothyroidism
Stable. Continue T4 replacement.
DVT Prophylaxis: SCDs
Code Status: DNR
Anticipated Discharge: 24 - 48 hours
Subjective/Interval History
-
Date of Service: June 08, 2025
Patient complains of pain in right upper extremity. She is always short of breath but no worsening from her baseline. No chest pain. Afebrile
Objective Data
-
Labs:
Laboratory Results
06/08/25
00:31
WBC 11.5 H
Hgb 11.1 L
Hct 33.2 L
Plt Count 256
PT 12.5
INR 0.93
APTT 20.4 L
Sodium 135
Potassium 4.8
Chloride 101
Carbon Dioxide 31 H
BUN 33 H
Creatinine 0.9
Glucose 104 H
Calcium 10.1
Total Bilirubin 0.6
AST 29
ALT 18
Alkaline Phosphatase 41
Vital Signs:
Vital Signs
Temp Pulse Resp BP Pulse Ox
98.1 F 67 12 154/89 96
06/07/25 23:52 06/08/25 07:00 06/08/25 07:00 06/08/25 07:00 06/08/25 06:45
--- NOTE | 2025-06-08 09:19 | EDCM ---
Reviewed chart and met with pt bedside in ED. Received consult for substance abuse counseling, pt states she has 1-2 drinks daily, states 'I'm retired, I can do what I want'. Pt declined speaking to [facility]. She is aware they are available if she
changes her mind.
Pt lives alone in [address], [address]. Has stair glide.
Independent in ADLs, personal care and ambulation at baseline. Has RW and cane, does not routinely use them. Also has home O2 from her , does not use it.
Confirms prescription coverage.
Current with [facility], no hx SNF.
PCP: Juan Kamara
Pharmacy: [facility]
Anticipate discharge home with [facility], CM will continue to follow for all discharge planning needs.
--- NOTE | 2025-06-08 09:21 | W.PN.UPDATE ---
Update Note
Progress Note Update
*FULL H&P to follow*
74-year-old female with comminuted minimally displaced right proximal humerus fracture. Recommend for nonoperative management. Nonweightbearing and sling to right upper extremity and close monitoring with serial radiographs to monitor for interval
displacement for reconsideration of operative invention.
[2025-06-08] MEDS: FOLVITE 1 MG PO (11:15)
[2025-06-08] MEDS: PROTONIX 40 MG PO (11:15)
[2025-06-08] MEDS: DILAUDID 1 MG IV (11:16)
[2025-06-08] MEDS: FLOVENT 110 MCG INHALER INH (11:36)
--- NOTE | 2025-06-08 11:58 | EDRN ---
Patient states her family doctor told her she needs to be in private rooms when admitted. Notified Dr. Rowley and the nursing yard supervisor cotton gin. No bed available at the present time. Patient agreed to accept the current semi private room assignment until a
private room becomes available. Notified nurse on floor and nursing yard supervisor cotton gin.
All medications that were available to give, given in ED. Pharmacy verifying medications and unable to pull from [facility] or not in the ED system.
[2025-06-08] MEDS: TYLENOL 650 MG PO ×3 (12:43→23:54)
[2025-06-08] MEDS: NEURONTIN PO (12:44)
[2025-06-08] MEDS: SYNTHROID PO (12:58)
[2025-06-08] MEDS: THIAMINE INJECTION 200 MG IV ×2 (12:58→19:16)
[2025-06-08] MEDS: CYMBALTA DELAYED RELEASE 30 MG PO (12:58)
[2025-06-08] MEDS: CLARITIN PO (12:59)
[2025-06-08] MEDS: ROXICODONE 5 MG PO ×2 (13:43→21:05)
[2025-06-08] MEDS: NEURONTIN 600 MG PO ×2 (15:20→21:07)
--- NOTE | 2025-06-08 15:47 | WOUNDNOTE ---
[facility] RN NOTE: Reviewed chart and met with patient. Patient had fall at home and now has skin tears and fracture to right humerus. Per Physician note, ER treatment of wounds included Mesh to close the right knee and left arm skin tears. Patient
declined to turn for skin assessment due to pain (patient was medicated for pain prior to assessment). Patient and daughter both reported that patient gets 'sacral ulcers easily' when in hospital. Static air overlay to be added to bed when patient
gets out or is able to turn. Sacral foam at bedside and will be applied. Heels blanchable and intact. Skin tears cleaned and local wound care provided as ordered. RN Dom given update. Will confirm orders and follow as needed.
--- NOTE | 2025-06-08 15:58 | WOUNDNOTE ---
LEFT FOREARM SKIN TEAR
--- NOTE | 2025-06-08 15:59 | WOUNDNOTE ---
RIGHT MEDIAL LEG
[2025-06-08] MEDS: COLACE 100 MG PO (17:21)
[2025-06-08] MEDS: LOVENOX 40 MG SC (17:21)
--- NOTE | 2025-06-08 19:09 | CON.ORTHO ---
Consultation
-
Date/Time Consultation Requested: 06/08/2025 0706
Date/Time Consultation Performed: 06/08/2025 0800
Requesting Provider: Dr. Nic Lobato
Performing Provider: [facility], Dr. Magdi Reardon
Reason for Consultation: R proximal humerus fracture
Consultation - Orthopedics
History
74F RHD for presentation to ED after sustaining a mechanical fall in her home residence. She reports immediate discomfort about her right upper extremity without paresthesias. She denies any prodromal symptoms about her shoulder or previous
significant orthopedic treatments. She has been seen by our service regarding her hip osteoarthiritis however surgery was deferred secondary to respiratory infection per patient.
Allergies / Home Medications
Allergy/AdvReac Type Severity Reaction Status Date / Time
adhesive Allergy skin Verified 06/07/25 23:51
irritation
albuterol Allergy SVT/A-fib Verified 06/07/25 23:51
alendronate sodium (From Allergy abd pain, Verified 06/07/25 23:51
Fosamax) diarrhea
azithromycin Allergy Rash Verified 06/07/25 23:51
calamine Allergy Rash Verified 06/07/25 23:51
camphor Allergy Shortness Verified 06/07/25 23:51
of Breath
chlorhexidine Allergy Shortness Verified 06/07/25 23:51
of Breath
codeine Allergy Rash Verified 06/07/25 23:51
epinephrine Allergy can have Verified 06/07/25 23:51
0.7mg max,
very high
rate SVT
glucose (From Gammagard S/D) Allergy migraine, Verified 06/07/25 23:51
N/V/D,
rigors
glycine (From Gammagard S/D) Allergy migraine, Verified 06/07/25 23:51
N/V/D,
rigors
hydrocodone Allergy can take Verified 06/07/25 23:51
synthetic
form only
IgA less than or equal to 50 Allergy migraine, Verified 06/07/25 23:51
mcg/mL (From Gammagard S/D) N/V/D,
rigors
immune globulin,gamma (IgG) Allergy migraine, Verified 06/07/25 23:51
human (From Gammagard S/D) N/V/D,
rigors
ipratropium Allergy doesn't Verified 06/07/25 23:51
work
latex Allergy Rash Verified 06/07/25 23:51
metoprolol Allergy couldn't Verified 06/07/25 23:51
move limbs
morphine Allergy Rash Verified 06/07/25 23:51
oxycodone Allergy can take Verified 06/07/25 23:51
synthetic
form only
propranolol (From Inderal LA) Allergy couldn't Verified 06/07/25 23:51
move limbs
tetanus toxoid, adsorbed Allergy Rash Verified 06/07/25 23:51
tuberculin, purified protein Allergy Rash Verified 06/07/25 23:51
deriva
diltiazem (From Cardizem) AdvReac edema,BP Verified 06/07/25 23:51
drop
blood transfusion reaction Allergy full body Uncoded 06/07/25 23:51
hives
�Medication �Instructions �Recorded
azelastine 137 mcg (0.1 %) nasal 2 spray intranasal DAILY Allergies 11/20/22
spray
fexofenadine 180 mg tablet 180 mg PO DAILY Allergies 11/20/22
gabapentin 600 mg tablet 600 mg PO 0700,1500,2200 Pain 11/20/22
krill 1 cap PO DAILY Supplement ##0 11/20/22
yfi-aw-0-jtd-qgg-xputchrruhywe 300
mg-90 mg-24 mg-50 mg capsule
(krill oil)
levothyroxine 112 mcg tablet 112 mcg PO MOWEFR@07 Thyroid 11/20/22
levothyroxine 125 mcg tablet 125 mcg PO SUTUTHSA@07 Thyroid 11/20/22
montelukast 10 mg tablet 10 mg PO HS Lung/breathing issues 11/20/22
ascorbic acid (vitamin C) 500 mg 500 mg PO QPM Supplement 07/03/23
tablet (Vitamin C)
cyanocobalamin (vitamin B-12) 500 mcg PO DAILY Supplement 07/03/23
1,000 mcg tablet
duloxetine 30 mg capsule,delayed 30 mg PO DAILY Pain 07/03/23
release
levalbuterol tartrate 45 2 puff inhalation Q4H PRN 07/03/23
mcg/actuation aerosol inhaler asthma/COPD
roflumilast 500 mcg tablet 500 mcg PO HS Lung/Breathing Issues 07/03/23
(Daliresp)
duloxetine 60 mg capsule,delayed 60 mg PO HS Depression ##0 08/17/23
release
pantoprazole 40 mg tablet,delayed 40 mg PO DAILY 30 days #30 tabs 09/10/23
release
celecoxib 100 mg capsule (Celebrex) 100 mg PO BID ##0 04/14/24
salmeterol 50 mcg/dose blister 1 inh inhalation BID 06/02/24
powder for inhalation (Serevent
Diskus)
docusate sodium 100 mg capsule 100 mg PO QPM 06/04/24
(Colace)
folic acid 1 mg tablet 1 mg PO DAILY 06/04/24
melatonin 5 mg tablet 5 mg PO HS 06/04/24
potassium chloride 20 mEq 20 meq PO BID 06/04/24
tablet,extended release
gabapentin 300 mg capsule 300 mg PO HS in addition to 600mg 12/13/24
ivabradine 5 mg tablet 2.5 mg PO BID 12/13/24
midodrine 10 mg tablet 10 mg PO 0700,1400,2000 12/13/24
Nutrafol 3 cap PO QPM 05/03/25
acetaminophen 650 mg 1,300 mg PO Q12H 05/03/25
tablet,extended release
calcium 600 mg (as 2 tab PO QPM 05/03/25
carbonate)-vitamin D3 5 mcg (200
unit) tablet
denosumab 60 mg/mL subcutaneous 60 mg SC [id number] 05/03/25
syringe (Prolia)
fluticasone propionate 50 2 spray intranasal BID 05/03/25
mcg/actuation nasal
spray,suspension
furosemide 40 mg tablet 60 mg PO DAILY 05/03/25
levalbuterol HCl 0.63 mg/3 mL 0.63 mg inhalation Q6H PRN 05/03/25
solution for nebulization asthma/COPD
multivitamin 2 tab PO DAILY 05/03/25
pyridoxine (vitamin B6) 1 tab PO DAILY 05/03/25
fluticasone propionate 250 2 inh inhalation BID 05/05/25
mcg/actuation blister powder for
inhalation
prednisone 10 mg tablet 10 mg PO DAILY anti-inflammation 06/08/25
tobramycin 300 mg/4 mL solution 300 mg inhalation BID 06/08/25
for nebulization
Past Medical History
Past Medical History: Reports Other
Additional Past Medical History:
Osteoarthritis
Paroxysmal atrial fibrillation, status post ablation 2007 and 2017.
Congestive heart failure, preserved ejection fraction.
POTS, on Midodrine.
Peripheral vascular disease.
Asthma, severe and persistent.
RODRIGUEZ/Bronchiectasis.
Colon polyps.
Migraines.
Peripheral neuropathy.
Degenerative disc disease.
Ambulatory dysfunction.
Rheumatoid arthritis.
Hypothyroidism.
Squamous cell carcinoma, status post multiple excisions.
Chronic normocytic anemia.
Prolapsed urethra.
Osteoporosis.
Hypogammaglobulinemia
Monoclonal B-cell lymphocytosis.
Depression / Anxiety.
Past Surgical History: Reports Other
Additional Past Surgical History:
Right total hip arthroplasty, 2020, at an outside facility.
Microdiscectomy.
Hysterectomy.
Atrial fibrillation ablation x2.
Loop recorder implant.
Squamous cell carcinoma excision x2.
Left leg skin biopsy.
Cataract extraction.
Social History
Tobacco: Former Smoker (Quit smoking in 1979. )
Alcohol: Daily (2 drinks daily on average)
Drug: None
Family History
Family History: Not pertinent
Vital Signs / Lab Results
Temp Pulse Resp BP Pulse Ox
97.7 F 72 18 157/87 95
06/08/25 15:11 06/08/25 15:11 06/08/25 15:11 06/08/25 15:11 06/08/25 15:11
PHYSICAL EXAM:
Exam of the right upper extremity shows splint to elbow and antebracium with exposed shoulder- skin about the shoulder is intact- SILT to the axillary nerve dermatome and distal fingertips.
IMAGING:
X-rays taken of the right upper extremity to include the forearm, humerus and shoulder show a comminuted proximal hujerus fracture with extension through the surgical neck and greater tuberosity. GH joint appears well preserved.
06/08/25 00:31
06/08/25 00:31
Assessment / Plan
74F RHD comminuted nondisplaced right proximal humerus fracture DOI 06/07/25
-x-rays were shown and reviewed with the patient; recommended for nonoperative management with nondisplaced nature of her fracture.
-discussed with her level of comminution that there is risk of interval displacement- recommend at leat weekly x-rays to monitor for interval displacement for consideration of ORIF versus rTSA.
-NWB to RUE- may do elbow, wrist and hand ROM. No ROM of the shoulder. No anticpated use of assistive devices such as a walker for approximately 6 weeks from DOI. Sling for comfort. May discontinue splint in 1-2 days from DOI of elbow.
-pending admission- recommend PT/OT eval/DC planning. Recommend repeat x-rays prior to DC if going to ARF/SNF and close outpatient followup to monitor for interval displacement
Ortho surg will follow peripherally at this time- DC information UTD.
[2025-06-08] MEDS: FLOVENT 110 MCG INHALER 2 PUFF INH (20:03)
[2025-06-08] MEDS: NON-FORMULARY ITEM 4 MG INH (20:04)
[2025-06-08] MEDS: NON-FORMULARY ITEM 2.5 MG PO (21:04)
[2025-06-08] MEDS: DALIRESP 500 MCG PO (21:08)
[2025-06-08] MEDS: NEURONTIN 300 MG PO (21:08)
[2025-06-08] MEDS: SINGULAIR 10 MG PO (21:08)
[2025-06-08] MEDS: MELATONIN 5 MG PO (21:09)
[2025-06-08] MEDS: CYMBALTA DELAYED RELEASE 60 MG PO (21:09)
[2025-06-08] MEDS: NON-FORMULARY ITEM 1 PUFF INH (21:44)
[2025-06-09] MEDS: DILAUDID 0.5 MG IV ×4 (03:29→20:51)
[2025-06-09 04:08] LABS: Blood Urea Nitrogen 17 mg/dl (7-17); Calcium 8.8 mg/dl (8.4-10.2); Carbon Dioxide 33 mmol/L (22-30); Chloride 103 mmol/L (98-107); Estimated Creatinine Clearance 62 ml/min; Glucose 114 mg/dl (70-99); Potassium 3.8 mmol/L (3.5-5.1); Sodium 135 mmol/L (135-145); eGFR > 60.00
[2025-06-09 04:15] LABS: Hematocrit 29.1 % (37.0-47.0); Hemoglobin 9.5 g/dL (12.0-16.0); Mean Corp Hgb Conc. 32.6 g/dL (33.0-37.0); Mean Corpuscular Volume 91.5 fL (81.0-99.0); Platelet Count 201 10^3/uL (130-400); Red Cell Dist. Width 15.9 % (11.5-14.5)
[2025-06-09] MEDS: ROXICODONE 5 MG PO ×3 (05:16→18:34)
[2025-06-09] MEDS: TYLENOL 650 MG PO ×3 (05:24→17:03)
[2025-06-09] MEDS: SYNTHROID 125 MCG PO (05:25)
[2025-06-09 07:37] VITALS: BP 138/92
[2025-06-09] MEDS: FLOVENT 110 MCG INHALER 2 PUFF INH ×2 (08:17→19:51)
[2025-06-09] MEDS: NON-FORMULARY ITEM 1 PUFF INH ×2 (08:17→19:51)
[2025-06-09] MEDS: NON-FORMULARY ITEM 300 MG INH ×2 (08:20→19:51)
[2025-06-09] MEDS: NEURONTIN 600 MG PO ×3 (08:21→20:54)
[2025-06-09] MEDS: CYMBALTA DELAYED RELEASE 30 MG PO (08:46)
[2025-06-09] MEDS: PROTONIX 40 MG PO (08:46)
[2025-06-09] MEDS: CLARITIN 10 MG PO (08:46)
[2025-06-09] MEDS: THIAMINE INJECTION 200 MG IV ×2 (08:47→20:52)
[2025-06-09] MEDS: NON-FORMULARY ITEM 2.5 MG PO ×2 (08:48→20:49)
[2025-06-09] MEDS: FOLVITE 1 MG PO (08:51)
--- NOTE | 2025-06-09 09:13 | W.PN.HOSP.TC ---
Today's Communication/Plan
-
See plan
Assessment / Plan
Assessment / Plan
Physical exam:
General: Acutely ill
HEENT: Normocephalic, Atraumatic and Moist Mucous Membranes
Respiratory: Clear to Auscultation; Negative Wheezes, Rales or Rhonchi
Cardiac: Regular Rhythm and S1/S2
GI: Soft, Nontender and Nondistended
Musculoskeletal: Hemarthrosis (mild) of right knee with decreased range of motion but some tenderness. Tenderness on right hip area with decreased range of motion as well. Right shoulder in sling and splint up to right hand. No Clubbing, No
Cyanosis and bilateral lower extremity mild edema. Some skin tears in forearm and right knee and contusion of the right jain.
Neuro: Awake, Alert and Oriented, no neurological deficits
Psych: Anxious
A/P:
Mechanical fall:
Pain control--> Multimodal pain control--> IV Toradol for mild, oxycodone for moderate, and Dilaudid for severe. She is on scheduled Tylenol and also Neurontin.
PT OT eval appreciated and recommending skilled rehab
physician relations manager for discharge disposition
Discussed with daughter over the phone today at patient's bedside
Right proximal humerus fracture:
Orthopedic consult appreciated
Surgical plan for now and follow-up interval x-rays
Will repeat x-ray tomorrow prior to discharge and then weekly as outpatient with Ortho
Right hip pain:
Obtain x-ray of the right hip
Possible concussions syndrome:
Monitor symptoms closely
CT head no acute intracranial abnormality
Right knee pain:
Likely due to hemarthrosis
X-ray no acute fractures
Severe persistent asthma/RODRIGUEZ/chronic bronchitis:
Continue inhaled tobramycin
Follows up with Dr. Neely locally and also follows up as outpatient with [facility]
Continue Flovent
Continue lev albuterol
Continue Striverdi
Continue Daliresp
Continue chronic doxycycline
Continue chronic steroids, prednisone 10 mg p.o. daily
Chronic HFpEF:
Resume oral diuretics, Lasix 60 mg p.o. daily
GDMT limited by hypotension
Paroxysmal A-fib:
Continue ivabradine
Not on anticoagulation
Peripheral neuropathy:
Continue neuropathy-discussed with patient that she is above maximal doses allow and with her respiratory status this is not recommended and she understands today then we will cut down evening doses of gabapentin. Also discussed with family and
they agree.
POTS:
Continue midodrine with holding parameters
Depression and anxiety:
Continue duloxetine
Hypothyroidism:
Continue thyroid replacement
Alcohol use disorder:
No evidence of alcohol withdrawal so discontinued benzodiazepines and MSA protocol
Continue thiamine and folic acid
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
Follow-up outpatient with hematology
GERD:
Continue PPI
DVT prophylaxis:
Lovenox SQ
CODE STATUS:
DNR
Total time spent on today's encounter was 52 minutes which included time spent in counseling the patient/family regarding diagnosis and treatment plan as listed above, goals of care, and symptom management. Case was discussed with nursing staff,
specialists, and care coordinators/case management. All labs and imaging personally reviewed by me. Remainder the time spent in detailed review of previous records, lab data, imaging, and other medical provider documentation. More than 50% of the
time spent in counseling coordination about plan of care and prognosis and discussions with patient and family (daughter) and specialist.
Anticipated Discharge: Within 24 hours
Subjective/Interval History
-
Date of Service: June 09, 2025
Patient multiple complaints today including headache nausea, right shoulder pain, right hip pain, right knee pain. She does have shortness of breath but no worsening from baseline. Afebrile
Objective Data
-
Labs:
Laboratory Results
06/09/25
03:21
WBC 8.4
Hgb 9.5 L
Hct 29.1 L
Plt Count 201 D
Sodium 135
Potassium 3.8
Chloride 103
Carbon Dioxide 33 H
BUN 17
Creatinine 0.7
Glucose 114 H
Calcium 8.8
Vital Signs:
Vital Signs
Temp Pulse Resp BP Pulse Ox
98.3 F 79 18 138/92 94
06/09/25 07:37 06/09/25 08:24 06/09/25 08:24 06/09/25 07:37 06/09/25 08:24
I&O
06/08/25 06/09/25 06/10/25
06:59 06:59 06:59
Intake Total 1380 / 1380
Balance 1380 / 1380
[2025-06-09] MEDS: LASIX 60 MG PO (11:55)
[2025-06-09] MEDS: DELTASONE 10 MG PO (11:55)
[2025-06-09] MEDS: VITAMIN B-6 50 MG PO (11:56)
[2025-06-09] MEDS: KCL 20 MEQ PO ×2 (11:56→20:54)
[2025-06-09] MEDS: VIBRAMYCIN 100 MG PO ×2 (11:56→20:55)
[2025-06-09] MEDS: VITAMIN B-12 500 MCG PO (11:57)
[2025-06-09 13:15] VITALS: BP 168/95
[2025-06-09] MEDS: COLACE 100 MG PO (17:03)
[2025-06-09] MEDS: OSCAL 500 + D 1000 MG PO (17:03)
[2025-06-09] MEDS: LOVENOX 40 MG SC (17:08)
[2025-06-09] MEDS: MELATONIN 5 MG PO (20:53)
[2025-06-09] MEDS: CYMBALTA DELAYED RELEASE 60 MG PO (20:53)
[2025-06-09] MEDS: SINGULAIR 10 MG PO (20:53)
[2025-06-09] MEDS: DALIRESP 500 MCG PO (20:54)
[2025-06-09 23:00] VITALS: BP 143/89
[2025-06-10] MEDS: TYLENOL 650 MG PO ×4 (01:05→17:43)
[2025-06-10] MEDS: ROXICODONE 5 MG PO (01:05)
[2025-06-10] MEDS: DILAUDID 0.5 MG IV ×4 (04:33→21:58)
[2025-06-10 05:36] LABS: Hematocrit 28.1 % (37.0-47.0); Hemoglobin 9.4 g/dL (12.0-16.0); Mean Corp Hgb Conc. 33.5 g/dL (33.0-37.0); Mean Corpuscular Volume 87.5 fL (81.0-99.0); Platelet Count 180 10^3/uL (130-400); Red Cell Dist. Width 15.8 % (11.5-14.5)
[2025-06-10 06:04] LABS: Blood Urea Nitrogen 17 mg/dl (7-17); Calcium 8.8 mg/dl (8.4-10.2); Carbon Dioxide 28 mmol/L (22-30); Estimated Creatinine Clearance 54 ml/min; Glucose 104 mg/dl (70-99); Potassium 4.3 mmol/L (3.5-5.1); Sodium 136 mmol/L (135-145); eGFR > 60.00
[2025-06-10 06:09] LABS: Chloride 105 mmol/L (98-107)
[2025-06-10] MEDS: SYNTHROID 112 MCG PO (06:41)
[2025-06-10 07:40] VITALS: BP 160/92
[2025-06-10] MEDS: NON-FORMULARY ITEM 300 MG INH ×2 (07:55→18:45)
[2025-06-10] MEDS: NON-FORMULARY ITEM 1 PUFF INH (07:56)
[2025-06-10] MEDS: FLOVENT 110 MCG INHALER 2 PUFF INH ×3 (07:57→18:46)
--- NOTE | 2025-06-10 08:16 | PN.CDI ---
CDI
- -
CDI:
Physician Documentation Request
Admit Date: 06/08/25 06:44
Dear Doctor,
Please review the following and provide your response in the progress notes.
Clinical Indicators:
Pt admitted for fall/Right proximal humerus fracture
06/08 H&P: 'Patient states that she was walking in slipper when her foot caught on a rug and she fell to the floor. She notes that she struck a doorway and a chair on her way to the ground.'
PMHx includes Osteoporosis
Medications include: Denosumab 60 mg/mL subcutaneous syringe (Prolia) 60 mg SC [id number] & calcium 600 mg (as carbonate)-vitamin D3 5 mcg (200 unit) tablet 2 tab
Please provide further specificity regarding the diagnosis of fracture:
Etiology
Pathologic due to osteoporosis
Due to a combination of trauma and a pathological process
but the trauma alone would not likely have been sufficient
to cause the fracture
Traumatic
Unable to determine
Other
Use of terms such as suspected, likely, concern for, or probable (associated with a specific diagnosis that is being evaluated, monitored, or treated as if it exists) are acceptable and can be coded in the inpatient setting, when documented at the
time of discharge.
Thank you,
Jessica Sheth RN, BSN
CDI Specialist
[place] [facility]
Please use your independent medical judgment in providing your response.
[2025-06-10] MEDS: LASIX 60 MG PO (10:03)
[2025-06-10] MEDS: PROTONIX 40 MG PO (10:04)
[2025-06-10] MEDS: FOLVITE 1 MG PO (10:04)
[2025-06-10] MEDS: KCL 20 MEQ PO ×2 (10:04→20:40)
[2025-06-10] MEDS: CLARITIN 10 MG PO (10:04)
[2025-06-10] MEDS: VITAMIN B-6 50 MG PO (10:04)
[2025-06-10] MEDS: VIBRAMYCIN 100 MG PO ×2 (10:04→20:40)
[2025-06-10] MEDS: VITAMIN B-12 500 MCG PO (10:04)
[2025-06-10] MEDS: CYMBALTA DELAYED RELEASE 30 MG PO (10:04)
[2025-06-10] MEDS: THIAMINE INJECTION 200 MG IV ×2 (10:05→20:40)
[2025-06-10] MEDS: DELTASONE 10 MG PO (10:07)
[2025-06-10] MEDS: NON-FORMULARY ITEM 2.5 MG PO ×2 (10:07→20:40)
[2025-06-10] MEDS: NEURONTIN 600 MG PO ×3 (10:13→22:15)
--- NOTE | 2025-06-10 11:56 | W.PN.HOSP.TC ---
Addendum entered and electronically signed by Alber Frances MD 06/10/25 18:07:
Due to a combination of trauma and a pathological process such as osteoporosis but the trauma alone would not likely have been sufficient to cause the fracture.
Original Note:
Today's Communication/Plan
-
Medically ready for discharge. culinary manager working on discharge disposition.
Assessment / Plan
Assessment / Plan
Physical exam:
General: Acutely ill
HEENT: Normocephalic, Atraumatic and Moist Mucous Membranes
Respiratory: Clear to Auscultation; Negative Wheezes, Rales or Rhonchi
Cardiac: Regular Rhythm and S1/S2
GI: Soft, Nontender and Nondistended
Musculoskeletal: Hemarthrosis (mild) of right knee with decreased range of motion but some tenderness. Tenderness on right hip area with decreased range of motion as well. Right shoulder in sling and splint up to right hand. No Clubbing, No
Cyanosis and bilateral lower extremity mild edema. Some skin tears in forearm and right knee and contusion of the right restoration.
Neuro: Awake, Alert and Oriented, no neurological deficits
Psych: Anxious
A/P:
Mechanical fall:
Pain control--> Multimodal pain control--> IV Toradol for mild, oxycodone for moderate, and Dilaudid for severe. She is on scheduled Tylenol and also Neurontin.
PT OT eval appreciated and recommending skilled rehab
culinary manager for discharge disposition
Discussed with daughter over the phone yesterday at patient's bedside
Medically ready for discharge-case management for discharge disposition
Right proximal humerus fracture:
Orthopedic consult appreciated
No surgical intervention for now and follow-up interval x-rays
Repeated x-ray today in case she is able to go today or over the weekend but if she stays longer might need to repeat x-ray (will also need weekly x-rays as outpatient with Ortho).
Medically ready for discharge-case management for discharge disposition
Right hip pain:
Obtained x-ray of the right hip and no acute pathology.
Possible concussions syndrome:
Improvement
Monitor symptoms closely
CT head no acute intracranial abnormality
Right knee pain:
Likely due to hemarthrosis
X-ray no acute fractures
Severe persistent asthma/RODRIGUEZ/chronic bronchitis:
Continue inhaled tobramycin
Follows up with Dr. Neely locally and also follows up as outpatient with [facility]
Continue Flovent
Continue lev albuterol
Continue Striverdi
Continue Daliresp
Continue chronic doxycycline
Continue chronic steroids, prednisone 10 mg p.o. daily
Chronic HFpEF:
Resumed oral diuretics, Lasix 60 mg p.o. daily and tolerating well.
GDMT limited by hypotension
Paroxysmal A-fib:
Continue ivabradine
Not on anticoagulation
Peripheral neuropathy:
Continue Neurontin-discussed with patient yesterday that she is above maximal doses allow and with her respiratory status this is not recommended and she understands. We proceeded to cut down evening doses of gabapentin. Also discussed with family
and they agree.
POTS:
Continue midodrine with holding parameters
Depression and anxiety:
Continue duloxetine
Hypothyroidism:
Continue thyroid replacement
Alcohol use disorder:
No evidence of alcohol withdrawal so discontinued benzodiazepines and MSA protocol
Continue thiamine and folic acid
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
Follow-up outpatient with hematology
GERD:
Continue PPI
DVT prophylaxis:
Lovenox SQ
CODE STATUS:
DNR
Total time spent on today's encounter was 36 minutes which included time spent in counseling the patient/family regarding diagnosis and treatment plan as listed above, goals of care, and symptom management. Case was discussed with nursing staff,
specialists, and care coordinators/case management. All labs and imaging personally reviewed by me. Remainder the time spent in detailed review of previous records, lab data, imaging, and other medical provider documentation.
Anticipated Discharge: Today
Subjective/Interval History
-
Date of Service: June 10, 2025
Patient complains of pain on right shoulder, right knee, right hip although overall better. Her head symptoms are also improving. She is short of breath as usual but nothing worse.
Objective Data
-
Labs:
Laboratory Results
06/10/25
05:16
WBC 10.6
Hgb 9.4 L
Hct 28.1 L
Plt Count 180
Sodium 136
Potassium 4.3
Chloride 105
Carbon Dioxide 28
BUN 17
Creatinine 0.8
Glucose 104 H
Calcium 8.8
Vital Signs:
Vital Signs
Temp Pulse Resp BP Pulse Ox
98.1 F 77 18 160/92 95
06/10/25 07:40 06/10/25 08:03 06/10/25 08:03 06/10/25 07:40 06/10/25 08:03
I&O
06/09/25 06/10/25 06/11/25
06:59 06:59 06:59
Intake Total 1380 / 1380 2160 / 2160
Balance 1380 / 1380 2160 / 2160
[2025-06-10 12:32] VITALS: BP 125/85; BP 146/92; BP 150/90; PULSE 75; O2SAT 91
[2025-06-10 13:00] VITALS: BP 146/92; BP 150/90; PULSE 78; O2SAT 93
--- NOTE | 2025-06-10 13:31 | CM ---
Addendum entered by Shanti Villagran 06/10/25 16:40:
CATRACHITO met with Olivia to discuss transfer to [facility]. She was questioning why she has not seen orthopedics in followup, as she is not sure if her fracture is displaced, and was told if it was, she would need surgery. Discussed with
SUZY Cano who is reaching out to Orthopedics.
Addendum entered by Shanti Villagran 06/10/25 14:49:
Bed available at [facility] where they have a private room for patient. [facility] and [facility] do not have a bed available for admission.
[facility] Report: [phone]
[facility]
Original Note:
CM consult for SNF transfer. CATRACHITO met with Olivia to discuss SNF choices. Provided her with the Medicare SNF Compare list and she has requested [facility], [facility], and [facility]. Referrals sent, awaiting updates on
available beds.
Rachell requests a private room at [facility] per her PCPs instructions; no private rooms available for now, but she tells me that she will be moved to a private room at when one becomes available.
Plan: Transfer to SNF when medically ready. CM awaiting updates on available beds.
[2025-06-10] MEDS: LOVENOX 40 MG SC (17:42)
[2025-06-10] MEDS: COLACE 100 MG PO (17:42)
[2025-06-10] MEDS: OSCAL 500 + D 1000 MG PO (17:42)
[2025-06-10 17:55] VITALS: BP 165/93
[2025-06-10] MEDS: NON-FORMULARY ITEM 45 PUFF INH (18:46)
[2025-06-10] MEDS: SINGULAIR 10 MG PO (21:59)
[2025-06-10] MEDS: DALIRESP 500 MCG PO (21:59)
[2025-06-10] MEDS: CYMBALTA DELAYED RELEASE 60 MG PO (21:59)
[2025-06-10] MEDS: MELATONIN 5 MG PO (22:09)
[2025-06-10 23:15] VITALS: BP 144/83
[2025-06-11] MEDS: TYLENOL PO ×2 (01:14→18:00)
[2025-06-11] MEDS: DILAUDID 0.5 MG IV (03:20)
[2025-06-11] MEDS: SYNTHROID 125 MCG PO (06:13)
[2025-06-11] MEDS: TYLENOL 650 MG PO ×2 (06:14→12:35)
[2025-06-11] MEDS: ROXICODONE 5 MG PO ×3 (06:14→15:07)
[2025-06-11] MEDS: NEURONTIN 600 MG PO ×2 (06:34→15:08)
[2025-06-11] MEDS: NON-FORMULARY ITEM 1 PUFF INH (07:19)
[2025-06-11] MEDS: NON-FORMULARY ITEM 300 MG INH (07:21)
[2025-06-11 08:20] VITALS: BP 158/80
--- NOTE | 2025-06-11 09:00 | PTCARENOTE ---
unable to locate pt home meds called pharmacy and they told me all the medications she brought from home, how many were dispenced and where to locate them. medications found and utilized including meds in fridge
[2025-06-11 09:06] VITALS: BP 131/66; BP 141/86; PULSE 85
[2025-06-11 09:08] VITALS: BP 131/66; BP 141/86; PULSE 84
[2025-06-11] MEDS: CYMBALTA DELAYED RELEASE 30 MG PO (09:38)
[2025-06-11] MEDS: FOLVITE 1 MG PO (09:38)
[2025-06-11] MEDS: VIBRAMYCIN 100 MG PO (09:38)
[2025-06-11] MEDS: VITAMIN B-12 500 MCG PO (09:39)
[2025-06-11] MEDS: CLARITIN 10 MG PO (09:39)
[2025-06-11] MEDS: PROTONIX 40 MG PO (09:39)
[2025-06-11] MEDS: VITAMIN B-6 50 MG PO (09:39)
[2025-06-11] MEDS: LASIX 60 MG PO (09:39)
[2025-06-11] MEDS: KCL 20 MEQ PO (09:39)
[2025-06-11] MEDS: DELTASONE 10 MG PO (09:42)
[2025-06-11] MEDS: VITAMIN B1 100 MG PO (09:42)
[2025-06-11] MEDS: NON-FORMULARY ITEM 1 MG PO (09:57)
--- NOTE | 2025-06-11 10:05 | CM ---
Addendum entered by Gianna Polanco RN 06/11/25 16:18:
MD ordered dc for patient . Dinora said [place] can accpet her today .
Pt requested ambulance Medical nec form complete .
Jerrica dgt and patient notified of dc to private room at [place].
PLAn To [place] SNF.
Original Note:
PT OT indicate SNF.
Dinora at [place] said they has a private bed today .
TT MD if patient ready for dc.
[place]
report [phone]
fax [phone]
PLAN To [place] when medically ready
--- NOTE | 2025-06-11 10:53 | W.PN.HOSP.TC ---
Today's Communication/Plan
-
Discharge planning
Assessment / Plan
Assessment / Plan
Physical exam:
General: Acutely ill
HEENT: Normocephalic, Atraumatic and Moist Mucous Membranes
Respiratory: Clear to Auscultation; Negative Wheezes, Rales or Rhonchi
Cardiac: Regular Rhythm and S1/S2
GI: Soft, Nontender and Nondistended
Musculoskeletal: Hemarthrosis (mild) of right knee with decreased range of motion but some tenderness. Tenderness on right hip area with decreased range of motion as well. Right shoulder in sling and splint up to right hand. No Clubbing, No
Cyanosis and bilateral lower extremity mild edema. Some skin tears in forearm and right knee and contusion of the right muslim.
Neuro: Awake, Alert and Oriented, no neurological deficits
Psych: Anxious
A/P:
Mechanical fall:
Pain control--> Multimodal pain control--> IV Toradol for mild, oxycodone for moderate, and Dilaudid for severe. She is on scheduled Tylenol and also Neurontin.
PT OT iman appreciated and recommending skilled rehab
transaction manager for discharge disposition
Discussed with daughter over the phone prior at patient's bedside
Ortho did a CT shoulder today and ok for d/c after reviewing results
Medically ready for discharge-case management for discharge disposition
Right proximal humerus fracture:
Orthopedic consult appreciated
No surgical intervention for now and follow-up interval x-rays
Repeated x-ray and CT shoulder as as below (will also need in a week x-rays as outpatient with Ortho).
Medically ready for discharge-case management for discharge disposition
Ortho did a CT shoulder today and ok for d/c after reviewing results
Right hip pain:
Obtained x-ray of the right hip and no acute pathology.
Possible concussions syndrome:
Improvement
Monitor symptoms closely
CT head no acute intracranial abnormality
Right knee pain:
Likely due to hemarthrosis
X-ray no acute fractures
Severe persistent asthma/RODRIGUEZ/chronic bronchitis:
Continue inhaled tobramycin
Follows up with Dr. Neely locally and also follows up as outpatient with [facility]
Continue Flovent
Continue lev albuterol
Continue Striverdi
Continue Daliresp
Continue chronic doxycycline
Continue chronic steroids, prednisone 10 mg p.o. daily
Chronic HFpEF:
Resumed oral diuretics, Lasix 60 mg p.o. daily and tolerating well.
GDMT limited by hypotension
Paroxysmal A-fib:
Continue ivabradine
Not on anticoagulation
Peripheral neuropathy:
Continue Neurontin-discussed with patient yesterday that she is above maximal doses allow and with her respiratory status this is not recommended and she understands. We proceeded to cut down evening doses of gabapentin. Also discussed with family
and they agree.
POTS:
Continue midodrine with holding parameters
Depression and anxiety:
Continue duloxetine
Hypothyroidism:
Continue thyroid replacement
Alcohol use disorder:
No evidence of alcohol withdrawal so discontinued benzodiazepines and MSA protocol
Continue thiamine and folic acid
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
Follow-up outpatient with hematology
GERD:
Continue PPI
DVT prophylaxis:
Lovenox SQ
CODE STATUS:
DNR
Total time spent on today's encounter was 36 minutes which included time spent in counseling the patient/family regarding diagnosis and treatment plan as listed above, goals of care, and symptom management. Case was discussed with nursing staff,
specialists, and care coordinators/case management. All labs and imaging personally reviewed by me. Remainder the time spent in detailed review of previous records, lab data, imaging, and other medical provider documentation.
Anticipated Discharge: Today
Subjective/Interval History
-
Date of Service: June 11, 2025
c/o pain right hsoulder but overall stable. Afebrile
Objective Data
-
Vital Signs:
Vital Signs
Temp Pulse Resp BP Pulse Ox
97.4 F 77 16 158/80 98
06/11/25 08:20 06/11/25 08:20 06/11/25 08:20 06/11/25 08:20 06/11/25 08:20
I&O
06/10/25 06/11/25 06/12/25
06:59 06:59 06:59
Intake Total 2160 / 2160 1140 / 1140
Output Total 200 / 200
Balance 2160 / 2160 940 / 940
--- NOTE | 2025-06-11 11:48 | W.PN.UPDATE ---
Update Note
Progress Note Update
Patient underwent x-rays shoulder and CT scan this morning. She does have comminuted fracture involving proximal humerus with minimal displacement. X-rays of the right forearm on admission revealed degenerative changes about the elbow and
wrist/hand but no obvious fractures. Splint was removed from the right upper extremity. She had 2 small skin tears along the palmar aspect of the wrist and hand. No evidence of infection. They were both cleaned with sterile water then Adaptic
placed with light dressing. Sling was reapplied. There is no point tenderness throughout the hand, wrist, forearm or elbow. Distal neurovascular was intact. For her right shoulder I recommend that we continue with sling and nonweightbearing to
assure that the fracture does not displace. Return to office 2 weeks for repeat x-ray to check position. Nursing to initiate daily dressing changes for her right hand and clean it with sterile water.
06/11/25 2:30 pm---Dr Taylor did have an opportunity to look at the CT scan of her right shoulder and agrees that no surgical intervention necessary at the moment. Instead of following up 2 weeks for an x-ray he would prefer an x-ray to be done in
1 week.
--- NOTE | 2025-06-11 12:42 | W.DCSUMMARY ---
Discharge Summary
Discharge Data
Date of Admission: 06/08/25
Date of Discharge: 06/11/25
Total time spent discharging patient (in min): 35
-
Pending Results: No
Hospital Course
Patient is 74 years old female with history of osteoporosis, A-fib, POTS, PVD, RODRIGUEZ bronchiectasis, migraines, hypothyroidism, monoclonal B-cell lymphocytosis, came into the hospital after mechanical fall. Patient sustained a right humeral fracture.
Orthopedic consulted. Patient was given pain medications. Patient was given multimodal pain regimen and her pain has been better controlled. She had serial x-rays of the right humerus and also right upper extremity CT scan as a follow-up.
Orthopedic recommended to continue with sling and nonweightbearing and return to office in about 1 week for repeat x-ray. Ortho has cleared her for discharge today.
Discharge duration: 35 minutes
Discharge Plan
-
Patient Disposition: Long-Term/SNF
Discharge Diagnosis/Procedures: Mechanical fall. Right proximal humerus fracture. Postconcussion syndrome. Right knee pain. Right hip pain. Severe persistent asthma with Mycobacterium avium complex infection.
Diet: Low Cholesterol
Activity: As tolerated
Blood Work: Please PCP to order CBC, BMP within 1 week
Activity Restrictions/Additional Instructions:
Wound Care Instructions Left Elbow and Right Knee Skin Tears- Clean with normal saline or soap and water. Apply adaptic and cover with sterile 4x4 or ABD and wrap with davis or kerlix. Change Q 48 hours and PRN drainage.
Sacrum- Keep covered with sacral foam. Change Q 48 days and PRN.
Right Lower Leg- Clean with normal saline or soap and water. Apply silicone border foam and change Q 48 hours and PRN.
Referrals:
Paul Taylor MD [[facility], Orthopedics]
Referral Note: Outpatient follow-up with x-rays 1-2 weeks from [facility], depending on date of discharge. Please call to schedule.
Juan Kamara MD [Family Provider, Internal Medicine] - in less than 1 week
Prescriptions:
New
oxycodone 5 mg Tablet
5 mg PO Q4HPRN PRN (Reason: moderate pain) Qty: 4 0RF
Continued
gabapentin 600 mg tablet
600 mg PO 0700,1500,2200
montelukast 10 mg tablet
10 mg PO HS
levothyroxine 112 mcg tablet
112 mcg PO MOWEFR@07
fexofenadine 180 mg Tablet
180 mg PO DAILY
levothyroxine 125 mcg tablet
125 mcg PO SUTUTHSA@07
azelastine 137 mcg (0.1 %) aerosol,spray
2 spray INTRANASAL DAILY
[id number]-gttxvq [krill oil] 539-78-33-50 mg Capsule
1 cap PO DAILY Qty: 0
cyanocobalamin (vitamin B-12) 1,000 mcg Tablet
500 mcg PO DAILY
ascorbic acid (vitamin C) [Vitamin C] 500 mg Tablet
500 mg PO QPM
duloxetine 30 mg Capsule,Delayed Release(Dr/Ec)
30 mg PO DAILY
levalbuterol tartrate 45 mcg/actuation Hfa Aerosol Inhaler
2 puff INHALATION Q4H PRN (Reason: asthma/COPD)
roflumilast [Daliresp] 500 mcg Tablet
500 mcg PO HS
duloxetine 60 mg Capsule,Delayed Release(Dr/Ec)
60 mg PO HS Qty: 0
pantoprazole 40 mg Tablet,Delayed Release (Dr/Ec)
40 mg PO DAILY 30 Days Qty: 30 0RF
celecoxib [Celebrex] 100 mg Capsule
100 mg PO BID Qty: 0
Serevent Diskus 50 mcg/dose Blister With Device
1 inh INHALATION BID
docusate sodium [Colace] 100 mg Capsule
100 mg PO QPM
folic acid 1 mg Tablet
1 mg PO DAILY
melatonin 5 mg Tablet
5 mg PO HS
potassium chloride 20 mEq Tablet Extended Release
20 meq PO BID
midodrine 10 mg Tablet
10 mg PO 0700,1400,2000
ivabradine 5 mg Tablet
2.5 mg PO BID
multivitamin Tablet
2 tab PO DAILY
furosemide 40 mg Tablet
60 mg PO DAILY
calcium carbonate-vitamin D3 600 mg-5 mcg (200 unit) Tablet
2 tab PO QPM
acetaminophen 650 mg Tablet Extended Release
1,300 mg PO Q12H
fluticasone propionate 50 mcg/actuation [place],Suspension
2 spray INTRANASAL BID
Prolia 60 mg/mL Syringe
60 mg SC [id number]
Nutrafol
3 cap PO QPM
pyridoxine (vitamin B6)
1 tab PO DAILY
levalbuterol HCl 0.63 mg/3 mL solution for nebulization
0.63 mg inhalation Q6H PRN (Reason: asthma/COPD)
fluticasone propionate 250 mcg/actuation Blister With Device
2 inh INHALATION BID
tobramycin 300 mg/4 mL Solution For Nebulization
300 mg INHALATION BID
prednisone 10 mg Tablet
10 mg PO DAILY
doxycycline monohydrate 100 mg Capsule
100 mg PO BID
Discontinued
gabapentin 300 mg Capsule
300 mg PO HS
Discharge Orders:
Discharge Patient (As Directed); Ordered 06/11/25
Ordered By: Alber Frances
Discharge Date and Time
Discharge Date/Time: 06/11/25 18:20
Print Language: HUNGARIAN
[2025-06-11 15:46] VITALS: BP 162/81
[2025-06-11] MEDS: OSCAL 500 + D 1000 MG PO (17:14)
[2025-06-11] MEDS: LOVENOX 40 MG SC (17:15)
[2025-06-11] MEDS: COLACE 100 MG PO (17:15)
[2025-06-11] MEDS: ROXICODONE 10 MG PO (18:00)
--- NOTE | 2025-06-11 18:47 | PTCARENOTE ---
When i approached the patient to tell he she was being picked up at 5 pm, she was calmly resting in bed no pain. After telling her she immediately got anxious agitated and angry and stated she was not going home and refusing being sent home until
am [place] and aware. Cm called her. pt ok to leave to day at 6pm. pt then
--- NOTE | 2025-06-11 18:51 | PTCARENOTE ---
Addendum entered by Rohini Gregg RN 06/12/25 08:12:
Pt told me she was having pain, i gave her her scheduled tylenol meds at 1700 I explained her port needs to come out, she got very agitated, Md mcgarry ordered 10mg oxycodone x1 stat to assist her with her pain and severe anxiety, med given port
out.
Original Note:
Pt told me she was having pain, i gave her her scheduled tylenol meds at 1700 I explained her port needs to come out, she got very agitated
== END 2025-06-11 18:20 | DRG 543 ==
LOC: 3 WEST ACU 06:44
PROVIDERS: ADMITTING PHYSICIAN Hospitalist; ATTENDING PHYSICIAN Hospitalist; CONSULT PHYSICIAN Orthopaedic Surgery; EMERGENCY PHYSICIAN Student in an Organized Health Care Education/Training Program; FAMILY PHYSICIAN Internal Medicine
DX: M80.021A Age-related osteoporosis with current pathological fracture, right humerus, initial encounter for fracture (principal); C91.10 Chronic lymphocytic leukemia of B-cell type not having achieved remission; I50.32 Chronic diastolic (congestive) heart failure; G90.A Postural orthostatic tachycardia syndrome [POTS]; Z87.891 Personal history of nicotine dependence; J44.89 Other specified chronic obstructive pulmonary disease; J45.50 Severe persistent asthma, uncomplicated; G62.9 Polyneuropathy, unspecified; F32.A Depression, unspecified; F41.9 Anxiety disorder, unspecified; E03.9 Hypothyroidism, unspecified; Z66 Do not resuscitate; I48.0 Paroxysmal atrial fibrillation; F07.81 Postconcussional syndrome
CPT/HCPCS: 12004; 70450; 71046; 72125; 73030; 73060; 73090; 73200; 73502; 73564; 80048; 80053; 82077; 85025; 85027; 85610; 85730; 93005; 94640; 96361; 96374; 96376; 97116; 97163; 97530; 97535; 99285

== ENCOUNTER 2025-06-27 14:54 | Emergency (ER) | payer MEDICARE, OTHER, SELFPAY ==
[2025-06-27 15:41] LABS: Hematocrit 33.8 % (37.0-47.0); Hemoglobin 10.9 g/dL (12.0-16.0); Mean Corp Hgb Conc. 32.2 g/dL (33.0-37.0); Mean Corpuscular Volume 89.7 fL (81.0-99.0); Nucleated Red Blood Cells % 0 %; Platelet Count 497 10^3/uL (130-400); Red Cell Dist. Width 16.0 % (11.5-14.5)
[2025-06-27 15:52] LABS: ALT (SGPT) 20 U/L (0-35); AST (SGOT) 25 U/L (14-36); Albumin 4.1 g/dl (3.5-5.0); Alkaline Phosphatase 106 U/L (38-126); Blood Urea Nitrogen 15 mg/dl (7-17); Calcium 9.4 mg/dl (8.4-10.2); Carbon Dioxide 26 mmol/L (22-30); Chloride 104 mmol/L (98-107); Glucose 171 mg/dl (70-99); Potassium 4.5 mmol/L (3.5-5.1); Sodium 137 mmol/L (135-145); Total Protein 6.3 g/dl (6.3-8.2); eGFR > 60.00
[2025-06-27 16:47] VITALS: BP 139/85
[2025-06-27 19:41] VITALS: BMI 22.3
[2025-06-27 19:42] VITALS: BP 164/98
[2025-06-27 20:00] VITALS: BP 159/92
--- NOTE | 2025-06-27 20:27 | ED.GENMED ---
History of Present Illness
<Francisco Linder PA-C - Last Filed: 06/27/25 22:45>
General
Chief Complaint: Heart Rate Problem
Source: patient
Exam Limitations: none
Time Seen by Provider: 06/27/25 19:42
History of Present Illness
History of Present Illness:
74-year-old female presents from rehab facility with sensation that she went into A-fib today. She has complicated medical history including bronchiectasis, RODRIGUEZ, Pseudomonas in the lungs, A-fib and flutter, POTS. She states that around 1 or 2 PM
she felt her heart racing and felt like it was in her throat. She notices the feeling of A-fib at this visit. She is not currently anticoagulated. He states her sensation of A-fib went away when the ambulance came. She does note that she has
been coughing and something just does not seem right. She feels ill on the way. She notes some shakes but no fever. No vomiting. No other complaints
Past History
<Francisco Linder PA-C - Last Filed: 06/27/25 22:45>
Past History
ED Past Medical History: Arrthythmia (afib), COPD, Hypothyroidism and Other (Monoclonal B-cell lymphocytosis)
ED Past Surgical History: Cardiac (Cardiac ablation for A-fib), Gynecological (Hysterectomy), Orthopedic (Microdiscectomy, right hip replacement) and Other (Cataract)
Social History
Tobacco: Former smoker
Alcohol: None
Drug: None
Personal:
Living: alone
Employment: Retired
Phy Exam
<Francisco Linder PA-C - Last Filed: 06/27/25 22:45>
Physical Exam
Physical Exam:
General: Well-appearing female no acute respiratory distress
HEENT: Normal cephalic atraumatic
Heart: Regular rate and rhythm lungs: Coarse throughout extremities: Mild edema bilateral lower extremities
Skin is warm no rash
Course
<Francisco Linder PA-C - Last Filed: 06/27/25 22:45>
Orders/Labs/Results
Orders:
Orders
06/27/25 14:55
EKG [Electrocardiogram (*1)] Urgent
Reason for Study: Palpitations
EKG- Treatment ONCE
06/27/25 15:26
Complete Blood Count/With Diff Urgent
06/27/25 15:27
Comprehensive Metabolic Panel Urgent
06/27/25 16:04
CXR2 [CR Chest - 2 Views ] Urgent
Comment:
Reason For Exam: cough
06/27/25 20:21
0.9% Sodium Chloride 500 ml [Nss] 500 ml IV BOLUS
Oxycodone [Roxicodone] 5 mg PO NOW STA
06/27/25 20:31
COVID-19 Antigen Urgent
Source: Nasal Swab
Influenza A+B Rapid Molecular Urgent
ALYSSIA Source: Nasal Swab
Specimen Description:
Abnormal Lab Results
06/27/25 06/27/25
15:26 15:27
WBC 14.4 H 10^3/uL
(4.8-10.8)
RBC 3.77 L 10^6/uL
(4.20-5.40)
Hgb 10.9 L g/dL
(12.0-16.0)
Hct 33.8 L %
(37.0-47.0)
MCHC 32.2 L g/dL
(33.0-37.0)
RDW 16.0 H %
(11.5-14.5)
Plt Count 497 H 10^3/uL
(130-400)
Abs Immat Gran (auto) 0.1 H 10^3/uL
(0-0.05)
Absolute Neuts (auto) 11.8 H 10^3/uL
(1.4-6.5)
Immature Gran % 0.6 H %
(0-0.5)
Neutrophils % 82.1 H %
(42.2-75.2)
Lymphocytes % 13.9 L %
(20.5-51.1)
Glucose 171 H mg/dl
(70-99)
06/27/25 15:26
06/27/25 15:27
Vital Signs
Initial and Last Documented VS:
Initial Vital Signs
Temp Pulse Resp Pulse Ox
98.4 F 101 20 96
06/27/25 15:13 06/27/25 15:13 06/27/25 15:13 06/27/25 15:13
Last Documented Vital Signs
Temp Pulse Resp BP Pulse Ox
99.0 F 72 18 173/87 95
06/27/25 19:43 06/27/25 22:15 06/27/25 16:47 06/27/25 22:00 06/27/25 22:15
<Robret Saucedo, DO - Last Filed: 06/27/25 22:37>
Orders/Labs/Results
Orders:
Orders
06/27/25 14:55
EKG [Electrocardiogram (*1)] Urgent
Reason for Study: Palpitations
EKG- Treatment ONCE
06/27/25 15:26
Complete Blood Count/With Diff Urgent
06/27/25 15:27
Comprehensive Metabolic Panel Urgent
06/27/25 16:04
CXR2 [CR Chest - 2 Views ] Urgent
Comment:
Reason For Exam: cough
06/27/25 20:21
0.9% Sodium Chloride 500 ml [Nss] 500 ml IV BOLUS
Oxycodone [Roxicodone] 5 mg PO NOW STA
06/27/25 20:31
COVID-19 Antigen Urgent
Source: Nasal Swab
Influenza A+B Rapid Molecular Urgent
ALYSSIA Source: Nasal Swab
Specimen Description:
Abnormal Lab Results
06/27/25 06/27/25
15:26 15:27
WBC 14.4 H 10^3/uL
(4.8-10.8)
RBC 3.77 L 10^6/uL
(4.20-5.40)
Hgb 10.9 L g/dL
(12.0-16.0)
Hct 33.8 L %
(37.0-47.0)
MCHC 32.2 L g/dL
(33.0-37.0)
RDW 16.0 H %
(11.5-14.5)
Plt Count 497 H 10^3/uL
(130-400)
Abs Immat Gran (auto) 0.1 H 10^3/uL
(0-0.05)
Absolute Neuts (auto) 11.8 H 10^3/uL
(1.4-6.5)
Immature Gran % 0.6 H %
(0-0.5)
Neutrophils % 82.1 H %
(42.2-75.2)
Lymphocytes % 13.9 L %
(20.5-51.1)
Glucose 171 H mg/dl
(70-99)
06/27/25 15:26
06/27/25 15:27
Vital Signs
Initial and Last Documented VS:
Initial Vital Signs
Temp Pulse Resp Pulse Ox
98.4 F 101 20 96
06/27/25 15:13 06/27/25 15:13 06/27/25 15:13 06/27/25 15:13
Last Documented Vital Signs
Temp Pulse Resp BP Pulse Ox
99.0 F 72 18 173/87 95
06/27/25 19:43 06/27/25 22:15 06/27/25 16:47 06/27/25 22:00 06/27/25 22:15
<Francisco Linder PA-C - Last Filed: 06/27/25 22:45>
MDM/Problems Addressed
Differential Diagnosis Includes:
Patient here with rapid heart rate sensation ,however that sensation has resolved. EKG here shows sinus tachycardia. She is on the site monitor when I am in the room and she is sinus rhythm in the upper 80s low 90s. She also is coughing.
X-ray of the chest was ordered through triage which is negative for acute finding. There is an acute for subacute fracture noted of the proximal humerus. Will test for COVID and flu. She does look somewhat dry. Fluids ordered. Oxycodone ordered
for her shoulder fracture
<Francisco Linder PA-C - Last Filed: 06/27/25 22:45>
*Pulse Oximetry
SaO2: 96
Oxygen Mode of Delivery: Room air
Patient hypoxic: no
*Critical Care Note
Total Time (30-74mins, 75-104mins- exclusive of procedures): Not Applicable
<Francisco Linder PA-C - Last Filed: 06/27/25 22:45>
Update Note
Update Note:
COVID and flu were negative. Chest x-ray negative. Not in A-fib currently. She converted herself out of it. Discussed with emergency room attending who saw the patient as well. No indication for admission at this time given stable vital signs
will discharge back to rehab. She was treated for her pain while here.
ED Attending Note
<Francisco Linder PA-C - Last Filed: 06/27/25 22:45>
-
Portions of this chart may have been created with voice recognition software.� Occasional wrong word or��sound alike� substitutions may have occurred due to the inherent limitations of voice recognition software.
<Robert Saucedo, DO - Last Filed: 06/27/25 22:37>
ED Attending Note
Patient seen and examined by attending physician: Yes
I performed the substantive portion of visit, reviewed & personally made and approve the management plan that is documented in note by myself or BRIAN.: Yes
ED Attending Note:
Seen with PA examined independently 74-year-old female multiple chronic medical conditions mainly respiratory and POTS briefly admitted recently with a humerus fracture was at a rehab thought she was in A-fib earlier today which she is not in A-fib
here, chest x-ray noted patient looks comfortable occasionally coughing already on steroids and inhalers I do not see any obvious indication for admission
Discharge Plan
Departure
Patient Disposition: Home (Routine Discharge)
Date of Disposition: 06/27/25
Time of Disposition: 22:43
Patient with high blood pressure during this ER visit?: No
Discharge Problem:
Palpitations
Instructions: Palpitations (DC)
Prescriptions:
No Action
gabapentin 600 mg tablet
600 mg PO 0700,1500,2200
montelukast 10 mg tablet
10 mg PO HS
levothyroxine 112 mcg tablet
112 mcg PO MOWEFR@07
fexofenadine 180 mg Tablet
180 mg PO DAILY
levothyroxine 125 mcg tablet
125 mcg PO SUTUTHSA@07
azelastine 137 mcg (0.1 %) aerosol,spray
2 spray INTRANASAL DAILY
ofggy-ttiyi-1-gyc-tcg-axyrzg [krill oil] 624-38-42-50 mg Capsule
1 cap PO DAILY Qty: 0
cyanocobalamin (vitamin B-12) 1,000 mcg Tablet
500 mcg PO DAILY
ascorbic acid (vitamin C) [Vitamin C] 500 mg Tablet
500 mg PO QPM
duloxetine 30 mg Capsule,Delayed Release(Dr/Ec)
30 mg PO DAILY
levalbuterol tartrate 45 mcg/actuation Hfa Aerosol Inhaler
2 puff INHALATION Q4H PRN (Reason: asthma/COPD)
roflumilast [Daliresp] 500 mcg Tablet
500 mcg PO HS
duloxetine 60 mg Capsule,Delayed Release(Dr/Ec)
60 mg PO HS Qty: 0
pantoprazole 40 mg Tablet,Delayed Release (Dr/Ec)
40 mg PO DAILY 30 Days Qty: 30 0RF
celecoxib [Celebrex] 100 mg Capsule
100 mg PO BID Qty: 0
Serevent Diskus 50 mcg/dose Blister With Device
1 inh INHALATION BID
docusate sodium [Colace] 100 mg Capsule
100 mg PO QPM
folic acid 1 mg Tablet
1 mg PO DAILY
melatonin 5 mg Tablet
5 mg PO HS
potassium chloride 20 mEq Tablet Extended Release
20 meq PO BID
midodrine 10 mg Tablet
10 mg PO 0700,1400,2000
ivabradine 5 mg Tablet
2.5 mg PO BID
multivitamin Tablet
2 tab PO DAILY
furosemide 40 mg Tablet
60 mg PO DAILY
calcium carbonate-vitamin D3 600 mg-5 mcg (200 unit) Tablet
2 tab PO QPM
acetaminophen 650 mg Tablet Extended Release
1,300 mg PO Q12H
fluticasone propionate 50 mcg/actuation [place],Suspension
2 spray INTRANASAL BID
Prolia 60 mg/mL Syringe
60 mg SC [id number]
Nutrafol
3 cap PO QPM
pyridoxine (vitamin B6)
1 tab PO DAILY
levalbuterol HCl 0.63 mg/3 mL solution for nebulization
0.63 mg inhalation Q6H PRN (Reason: asthma/COPD)
fluticasone propionate 250 mcg/actuation Blister With Device
2 inh INHALATION BID
tobramycin 300 mg/4 mL Solution For Nebulization
300 mg INHALATION BID
prednisone 10 mg Tablet
10 mg PO DAILY
doxycycline monohydrate 100 mg Capsule
100 mg PO BID
oxycodone 5 mg Tablet
5 mg PO Q4HPRN PRN (Reason: moderate pain) Qty: 4 0RF
Referrals:
UNKNOWN - PT DOES,NOT KNOW [Unknown Provider]
Activity Restrictions/Additional Instructions:
Continue current nebulizer regimen. Return here for worsening symptoms otherwise follow-up with your doctors
Interventions
Interventions:
*General Assessment Last Done: 06/27/25 19:49
*Neglect/Abuse Screening Last Done: 06/27/25 19:50
*ED COVID-19 Vaccine History Last Done: 06/27/25 19:42
*ED Influenza Vaccine History Last Done: 06/27/25 19:42
[facility] Fall Risk Assessment Tool Last Done: 06/27/25 19:44
*Risk Screen - Suicide (C-SSRS) Last Done: 06/27/25 15:13
ED- Cardiac Assessment Last Done: 06/27/25 19:42
ED- Pulmonary Assessment Last Done: 06/27/25 19:42
Discharge Date and Time
Print Language: GREEK
[2025-06-27] MEDS: ROXICODONE 5 MG PO (20:33)
[2025-06-27 21:00] VITALS: BP 158/95
[2025-06-27 21:02] LABS: COVID-19 Antigen Negative (Negative)
[2025-06-27] MEDS: NSS 500 IV (21:12)
--- NOTE | 2025-06-27 21:51 | VATNOTE ---
pt requested her port be accessed. Inquired of PCN if pt. had a fever which she does not; port accessed as requested . no labs needed at this time.
[2025-06-27 22:00] VITALS: BP 173/87
[2025-06-27 23:00] VITALS: BP 162/92
[2025-06-28 00:34] VITALS: BP 167/82
--- NOTE | 2025-06-28 00:48 | VATNOTE ---
06/27/25 @ 1061
Paged by PCN to de access patients pt that patient is being dischared. Patient asked that heparin be instilled and then wait a few minutes before taking needle out. Patient requested adhesive remover be used to take dressing off. Dressing removed
with adhesive removed and port deaccessed. Patient refused tape or dressing stated that she would hold the gauze until bleeding stopped.
== END 2025-06-28 01:06 | disposition home or self-care (01) ==
LOC: EMR 14:54
PROVIDERS: Emergency Medicine; Physician Assistant; EMERGENCY PHYSICIAN Emergency Medicine; FAMILY PHYSICIAN Internal Medicine
DX: R00.2 Palpitations (principal); I48.91 Unspecified atrial fibrillation; G90.A Postural orthostatic tachycardia syndrome [POTS]; J47.9 Bronchiectasis, uncomplicated; D72.820 Lymphocytosis (symptomatic); A31.0 Pulmonary mycobacterial infection; E03.9 Hypothyroidism, unspecified; Z87.891 Personal history of nicotine dependence; Z96.641 Presence of right artificial hip joint
CPT/HCPCS: 99284; 96360; 71046; 80053; 85025; 87502; 87811; 93005